=== PATIENT | male | born 1960 | race African-American/Black ===

== ENCOUNTER 2017-05-13 10:29 | Day surgery (SDC) | payer MEDICAID ==
[~2017-05-13 10:29] MED LIST: LISI-644 PO; METF500T PO
== END 2017-05-13 12:17 | disposition home or self-care (01) ==
LOC: WOUND CARE 10:29
PROVIDERS: ATTEND Surgery
DX: T81.89XD Other complications of procedures, not elsewhere classified, subsequent encounter (principal); E11.621 Type 2 diabetes mellitus with foot ulcer; L97.521 Non-pressure chronic ulcer of other part of left foot limited to breakdown of skin; L97.511 Non-pressure chronic ulcer of other part of right foot limited to breakdown of skin; E11.22 Type 2 diabetes mellitus with diabetic chronic kidney disease; I13.0 Hypertensive heart and chronic kidney disease with heart failure and stage 1 through stage 4 chronic kidney disease, or unspecified chronic kidney disease; I50.9 Heart failure, unspecified; N18.3 Chronic kidney disease, stage 3 (moderate); L84 Corns and callosities; E78.5 Hyperlipidemia, unspecified; H54.8 Legal blindness, as defined in USA; E11.69 Type 2 diabetes mellitus with other specified complication; M86.8X7 Other osteomyelitis, ankle and foot; E11.42 Type 2 diabetes mellitus with diabetic polyneuropathy; I87.2 Venous insufficiency (chronic) (peripheral); E11.319 Type 2 diabetes mellitus with unspecified diabetic retinopathy without macular edema; F19.10 Other psychoactive substance abuse, uncomplicated; Z89.012 Acquired absence of left thumb; Z90.49 Acquired absence of other specified parts of digestive tract; Z89.021 Acquired absence of right finger(s); Z68.27 Body mass index [BMI] 27.0-27.9, adult; Z79.899 Other long term (current) drug therapy; Z86.718 Personal history of other venous thrombosis and embolism; Z89.9 Acquired absence of limb, unspecified; Y83.8 Other surgical procedures as the cause of abnormal reaction of the patient, or of later complication, without mention of misadventure at the time of the procedure
CPT/HCPCS: 11042; 36416; 82948; A6021; A6206; A6209; A6446

== ENCOUNTER 2017-05-20 10:00 | Day surgery (SDC) | payer MEDICAID | END 2017-05-20 11:27 | disposition home or self-care (01) | LOC: WOUND CARE 10:00 | PROVIDERS: ATTEND Surgery | DX: T81.89XD Other complications of procedures, not elsewhere classified, subsequent encounter (principal); E11.621 Type 2 diabetes mellitus with foot ulcer; L97.521 Non-pressure chronic ulcer of other part of left foot limited to breakdown of skin; L97.511 Non-pressure chronic ulcer of other part of right foot limited to breakdown of skin; E11.69 Type 2 diabetes mellitus with other specified complication; M86.8X7 Other osteomyelitis, ankle and foot; E11.42 Type 2 diabetes mellitus with diabetic polyneuropathy; E11.319 Type 2 diabetes mellitus with unspecified diabetic retinopathy without macular edema; E11.22 Type 2 diabetes mellitus with diabetic chronic kidney disease; I13.0 Hypertensive heart and chronic kidney disease with heart failure and stage 1 through stage 4 chronic kidney disease, or unspecified chronic kidney disease; I50.9 Heart failure, unspecified; N18.3 Chronic kidney disease, stage 3 (moderate); L84 Corns and callosities; E78.5 Hyperlipidemia, unspecified; H54.8 Legal blindness, as defined in USA; I87.2 Venous insufficiency (chronic) (peripheral); F19.10 Other psychoactive substance abuse, uncomplicated; Z89.012 Acquired absence of left thumb; Z89.9 Acquired absence of limb, unspecified; Z90.49 Acquired absence of other specified parts of digestive tract; Z89.021 Acquired absence of right finger(s); Z68.27 Body mass index [BMI] 27.0-27.9, adult; Z79.899 Other long term (current) drug therapy; Z86.718 Personal history of other venous thrombosis and embolism; Y83.8 Other surgical procedures as the cause of abnormal reaction of the patient, or of later complication, without mention of misadventure at the time of the procedure | CPT/HCPCS: 11042; 36416; 82948; A6206; A6212; A6446 ==

== ENCOUNTER 2017-05-27 09:36 | Day surgery (SDC) | payer MEDICAID | END 2017-05-27 11:03 | disposition home or self-care (01) | LOC: WOUND CARE 09:36 | PROVIDERS: ATTEND Surgery | DX: T81.89XD Other complications of procedures, not elsewhere classified, subsequent encounter (principal); E11.621 Type 2 diabetes mellitus with foot ulcer; L97.521 Non-pressure chronic ulcer of other part of left foot limited to breakdown of skin; L97.511 Non-pressure chronic ulcer of other part of right foot limited to breakdown of skin; E11.22 Type 2 diabetes mellitus with diabetic chronic kidney disease; I13.0 Hypertensive heart and chronic kidney disease with heart failure and stage 1 through stage 4 chronic kidney disease, or unspecified chronic kidney disease; N18.3 Chronic kidney disease, stage 3 (moderate); I50.9 Heart failure, unspecified; E11.69 Type 2 diabetes mellitus with other specified complication; M86.8X7 Other osteomyelitis, ankle and foot; E11.42 Type 2 diabetes mellitus with diabetic polyneuropathy; E11.319 Type 2 diabetes mellitus with unspecified diabetic retinopathy without macular edema; L84 Corns and callosities; E78.5 Hyperlipidemia, unspecified; H54.8 Legal blindness, as defined in USA; F19.10 Other psychoactive substance abuse, uncomplicated; I87.2 Venous insufficiency (chronic) (peripheral); Z89.012 Acquired absence of left thumb; Z89.9 Acquired absence of limb, unspecified; Z90.49 Acquired absence of other specified parts of digestive tract; Z89.021 Acquired absence of right finger(s); Z68.27 Body mass index [BMI] 27.0-27.9, adult; Z79.899 Other long term (current) drug therapy; Z86.718 Personal history of other venous thrombosis and embolism; Y83.8 Other surgical procedures as the cause of abnormal reaction of the patient, or of later complication, without mention of misadventure at the time of the procedure | CPT/HCPCS: 11042; 36416; 82948; A6206; A6209; A6446 ==

== ENCOUNTER 2017-06-03 10:08 | Day surgery (SDC) | payer MEDICAID ==
[2017-06-03] MEDS ORDERED: LIDOcaine 2% 5ml jelly ONE (11:00)
== END 2017-06-03 12:35 | disposition home or self-care (01) ==
LOC: WOUND CARE 10:08
PROVIDERS: ATTEND Surgery
DX: T81.89XD Other complications of procedures, not elsewhere classified, subsequent encounter (principal); E11.621 Type 2 diabetes mellitus with foot ulcer; L97.521 Non-pressure chronic ulcer of other part of left foot limited to breakdown of skin; L97.511 Non-pressure chronic ulcer of other part of right foot limited to breakdown of skin; E11.69 Type 2 diabetes mellitus with other specified complication; M86.8X7 Other osteomyelitis, ankle and foot; E11.42 Type 2 diabetes mellitus with diabetic polyneuropathy; E11.319 Type 2 diabetes mellitus with unspecified diabetic retinopathy without macular edema; E11.22 Type 2 diabetes mellitus with diabetic chronic kidney disease; I13.0 Hypertensive heart and chronic kidney disease with heart failure and stage 1 through stage 4 chronic kidney disease, or unspecified chronic kidney disease; N18.3 Chronic kidney disease, stage 3 (moderate); I50.9 Heart failure, unspecified; E78.5 Hyperlipidemia, unspecified; L84 Corns and callosities; H54.8 Legal blindness, as defined in USA; I87.2 Venous insufficiency (chronic) (peripheral); F19.10 Other psychoactive substance abuse, uncomplicated; Z89.012 Acquired absence of left thumb; Z89.9 Acquired absence of limb, unspecified; Z90.49 Acquired absence of other specified parts of digestive tract; Z89.021 Acquired absence of right finger(s); Z68.27 Body mass index [BMI] 27.0-27.9, adult; Z79.899 Other long term (current) drug therapy; Z86.718 Personal history of other venous thrombosis and embolism; Y83.8 Other surgical procedures as the cause of abnormal reaction of the patient, or of later complication, without mention of misadventure at the time of the procedure
CPT/HCPCS: 36416; 82948; 97597; A6021; A6212; A6222; A6446

== ENCOUNTER 2017-06-10 09:38 | Day surgery (SDC) | payer MEDICAID | END 2017-06-10 12:53 | disposition home or self-care (01) | LOC: WOUND CARE 09:38 | PROVIDERS: ATTEND Surgery | DX: T81.89XD Other complications of procedures, not elsewhere classified, subsequent encounter (principal); E11.621 Type 2 diabetes mellitus with foot ulcer; L97.521 Non-pressure chronic ulcer of other part of left foot limited to breakdown of skin; L97.511 Non-pressure chronic ulcer of other part of right foot limited to breakdown of skin; E11.22 Type 2 diabetes mellitus with diabetic chronic kidney disease; I13.0 Hypertensive heart and chronic kidney disease with heart failure and stage 1 through stage 4 chronic kidney disease, or unspecified chronic kidney disease; I50.9 Heart failure, unspecified; N18.3 Chronic kidney disease, stage 3 (moderate); L84 Corns and callosities; E78.5 Hyperlipidemia, unspecified; H54.8 Legal blindness, as defined in USA; E11.69 Type 2 diabetes mellitus with other specified complication; M86.8X7 Other osteomyelitis, ankle and foot; E11.42 Type 2 diabetes mellitus with diabetic polyneuropathy; E11.319 Type 2 diabetes mellitus with unspecified diabetic retinopathy without macular edema; I87.2 Venous insufficiency (chronic) (peripheral); M86.679 Other chronic osteomyelitis, unspecified ankle and foot; F19.10 Other psychoactive substance abuse, uncomplicated; Z89.012 Acquired absence of left thumb; Z89.9 Acquired absence of limb, unspecified; Z90.49 Acquired absence of other specified parts of digestive tract; Z89.021 Acquired absence of right finger(s); Z68.27 Body mass index [BMI] 27.0-27.9, adult; Z79.899 Other long term (current) drug therapy; Z86.718 Personal history of other venous thrombosis and embolism; Y83.8 Other surgical procedures as the cause of abnormal reaction of the patient, or of later complication, without mention of misadventure at the time of the procedure | CPT/HCPCS: 11042; 36416; 82948; A6021; A6206; A6212; Q4038 ==

== ENCOUNTER 2017-06-14 10:30 | Outpatient (CLI) | payer MEDICAID | END 2017-06-14 11:43 | disposition home or self-care (01) | LOC: EDSTATUS 10:30 → WOUND CARE 10:30 | PROVIDERS: ATTEND Surgery | DX: T81.89XD Other complications of procedures, not elsewhere classified, subsequent encounter (principal); E11.621 Type 2 diabetes mellitus with foot ulcer; L97.521 Non-pressure chronic ulcer of other part of left foot limited to breakdown of skin; L97.511 Non-pressure chronic ulcer of other part of right foot limited to breakdown of skin; E11.22 Type 2 diabetes mellitus with diabetic chronic kidney disease; I13.0 Hypertensive heart and chronic kidney disease with heart failure and stage 1 through stage 4 chronic kidney disease, or unspecified chronic kidney disease; I50.9 Heart failure, unspecified; N18.3 Chronic kidney disease, stage 3 (moderate); L84 Corns and callosities; E78.5 Hyperlipidemia, unspecified; H54.8 Legal blindness, as defined in USA; E11.69 Type 2 diabetes mellitus with other specified complication; M86.8X7 Other osteomyelitis, ankle and foot; E11.42 Type 2 diabetes mellitus with diabetic polyneuropathy; E11.319 Type 2 diabetes mellitus with unspecified diabetic retinopathy without macular edema; I87.2 Venous insufficiency (chronic) (peripheral); M86.679 Other chronic osteomyelitis, unspecified ankle and foot; F19.10 Other psychoactive substance abuse, uncomplicated; Z89.012 Acquired absence of left thumb; Z89.9 Acquired absence of limb, unspecified; Z90.49 Acquired absence of other specified parts of digestive tract; Z89.021 Acquired absence of right finger(s); Z68.27 Body mass index [BMI] 27.0-27.9, adult; Z79.899 Other long term (current) drug therapy; Z86.718 Personal history of other venous thrombosis and embolism; Y83.8 Other surgical procedures as the cause of abnormal reaction of the patient, or of later complication, without mention of misadventure at the time of the procedure | CPT/HCPCS: 29445; 36416; 82948; A4414; A6021; Q4038 ==

== ENCOUNTER 2017-06-21 09:40 | Day surgery (SDC) | payer MEDICAID | END 2017-06-21 12:15 | disposition home or self-care (01) | LOC: WOUND CARE 09:40 | PROVIDERS: ATTEND Surgery | DX: T81.89XD Other complications of procedures, not elsewhere classified, subsequent encounter (principal); E11.621 Type 2 diabetes mellitus with foot ulcer; L97.521 Non-pressure chronic ulcer of other part of left foot limited to breakdown of skin; L97.511 Non-pressure chronic ulcer of other part of right foot limited to breakdown of skin; E11.22 Type 2 diabetes mellitus with diabetic chronic kidney disease; I13.0 Hypertensive heart and chronic kidney disease with heart failure and stage 1 through stage 4 chronic kidney disease, or unspecified chronic kidney disease; I50.9 Heart failure, unspecified; N18.3 Chronic kidney disease, stage 3 (moderate); L84 Corns and callosities; E78.5 Hyperlipidemia, unspecified; H54.8 Legal blindness, as defined in USA; E11.69 Type 2 diabetes mellitus with other specified complication; M86.8X7 Other osteomyelitis, ankle and foot; E11.42 Type 2 diabetes mellitus with diabetic polyneuropathy; E11.319 Type 2 diabetes mellitus with unspecified diabetic retinopathy without macular edema; I87.2 Venous insufficiency (chronic) (peripheral); M86.679 Other chronic osteomyelitis, unspecified ankle and foot; F19.10 Other psychoactive substance abuse, uncomplicated; Z89.012 Acquired absence of left thumb; Z89.9 Acquired absence of limb, unspecified; Z90.49 Acquired absence of other specified parts of digestive tract; Z89.021 Acquired absence of right finger(s); Z68.27 Body mass index [BMI] 27.0-27.9, adult; Z79.899 Other long term (current) drug therapy; Z86.718 Personal history of other venous thrombosis and embolism; Y83.8 Other surgical procedures as the cause of abnormal reaction of the patient, or of later complication, without mention of misadventure at the time of the procedure | CPT/HCPCS: 11042; 36416; 82948; 97597; A6021; A6206; A6446; Q4038 ==

== ENCOUNTER 2017-06-28 10:00 | Day surgery (SDC) | payer MEDICAID | END 2017-06-28 12:28 | disposition home or self-care (01) | LOC: WOUND CARE 10:00 | PROVIDERS: ATTEND Surgery | DX: T81.89XD Other complications of procedures, not elsewhere classified, subsequent encounter (principal); E11.621 Type 2 diabetes mellitus with foot ulcer; L97.521 Non-pressure chronic ulcer of other part of left foot limited to breakdown of skin; L97.511 Non-pressure chronic ulcer of other part of right foot limited to breakdown of skin; E11.22 Type 2 diabetes mellitus with diabetic chronic kidney disease; I13.0 Hypertensive heart and chronic kidney disease with heart failure and stage 1 through stage 4 chronic kidney disease, or unspecified chronic kidney disease; I50.9 Heart failure, unspecified; N18.3 Chronic kidney disease, stage 3 (moderate); L84 Corns and callosities; E78.5 Hyperlipidemia, unspecified; H54.8 Legal blindness, as defined in USA; E11.69 Type 2 diabetes mellitus with other specified complication; M86.8X7 Other osteomyelitis, ankle and foot; E11.42 Type 2 diabetes mellitus with diabetic polyneuropathy; E11.319 Type 2 diabetes mellitus with unspecified diabetic retinopathy without macular edema; I87.2 Venous insufficiency (chronic) (peripheral); M86.679 Other chronic osteomyelitis, unspecified ankle and foot; F19.10 Other psychoactive substance abuse, uncomplicated; Z89.012 Acquired absence of left thumb; Z89.9 Acquired absence of limb, unspecified; Z90.49 Acquired absence of other specified parts of digestive tract; Z89.021 Acquired absence of right finger(s); Z68.27 Body mass index [BMI] 27.0-27.9, adult; Z79.899 Other long term (current) drug therapy; Z86.718 Personal history of other venous thrombosis and embolism; Y83.8 Other surgical procedures as the cause of abnormal reaction of the patient, or of later complication, without mention of misadventure at the time of the procedure | CPT/HCPCS: 11042; 87070; 87075; 87077; 87102; 87186; A6021; A6196; Q4038 ==

== ENCOUNTER 2017-07-09 10:27 | Day surgery (SDC) | payer MEDICAID ==
[2017-07-09] MEDS ORDERED: LIDOcaine 2% 5ml jelly ONE ×2 (11:15)
== END 2017-07-09 14:00 | disposition home or self-care (01) ==
LOC: WOUND CARE 10:27
PROVIDERS: ATTEND Surgery
DX: T81.89XD Other complications of procedures, not elsewhere classified, subsequent encounter (principal); E11.621 Type 2 diabetes mellitus with foot ulcer; L97.521 Non-pressure chronic ulcer of other part of left foot limited to breakdown of skin; L97.511 Non-pressure chronic ulcer of other part of right foot limited to breakdown of skin; E11.22 Type 2 diabetes mellitus with diabetic chronic kidney disease; I13.0 Hypertensive heart and chronic kidney disease with heart failure and stage 1 through stage 4 chronic kidney disease, or unspecified chronic kidney disease; I50.9 Heart failure, unspecified; N18.3 Chronic kidney disease, stage 3 (moderate); L84 Corns and callosities; E78.5 Hyperlipidemia, unspecified; H54.8 Legal blindness, as defined in USA; E11.69 Type 2 diabetes mellitus with other specified complication; M86.8X7 Other osteomyelitis, ankle and foot; E11.42 Type 2 diabetes mellitus with diabetic polyneuropathy; E11.319 Type 2 diabetes mellitus with unspecified diabetic retinopathy without macular edema; I87.2 Venous insufficiency (chronic) (peripheral); M86.679 Other chronic osteomyelitis, unspecified ankle and foot; F19.10 Other psychoactive substance abuse, uncomplicated; Z89.012 Acquired absence of left thumb; Z89.9 Acquired absence of limb, unspecified; Z90.49 Acquired absence of other specified parts of digestive tract; Z89.021 Acquired absence of right finger(s); Z68.27 Body mass index [BMI] 27.0-27.9, adult; Z79.899 Other long term (current) drug therapy; Z86.718 Personal history of other venous thrombosis and embolism; Y83.8 Other surgical procedures as the cause of abnormal reaction of the patient, or of later complication, without mention of misadventure at the time of the procedure
CPT/HCPCS: 11042; 11045; 36416; 82948; 97605; A6206; A6446

== ENCOUNTER 2017-07-12 09:01 | Outpatient (CLI) | payer MEDICAID ==
[2017-07-12] MEDS ORDERED: CIPR-230 PO (09:49)
== END 2017-07-12 11:06 | disposition home or self-care (01) ==
LOC: WOUND CARE 09:01
PROVIDERS: ATTEND Surgery
DX: E11.621 Type 2 diabetes mellitus with foot ulcer (principal); L97.521 Non-pressure chronic ulcer of other part of left foot limited to breakdown of skin; L97.511 Non-pressure chronic ulcer of other part of right foot limited to breakdown of skin; E11.22 Type 2 diabetes mellitus with diabetic chronic kidney disease; I13.0 Hypertensive heart and chronic kidney disease with heart failure and stage 1 through stage 4 chronic kidney disease, or unspecified chronic kidney disease; I50.9 Heart failure, unspecified; N18.3 Chronic kidney disease, stage 3 (moderate); L84 Corns and callosities; E78.5 Hyperlipidemia, unspecified; H54.8 Legal blindness, as defined in USA; E11.69 Type 2 diabetes mellitus with other specified complication; M86.8X7 Other osteomyelitis, ankle and foot; E11.42 Type 2 diabetes mellitus with diabetic polyneuropathy; E11.319 Type 2 diabetes mellitus with unspecified diabetic retinopathy without macular edema; I87.2 Venous insufficiency (chronic) (peripheral); M86.679 Other chronic osteomyelitis, unspecified ankle and foot; F19.10 Other psychoactive substance abuse, uncomplicated; Z89.012 Acquired absence of left thumb; Z89.9 Acquired absence of limb, unspecified; Z90.49 Acquired absence of other specified parts of digestive tract; Z89.021 Acquired absence of right finger(s); Z68.27 Body mass index [BMI] 27.0-27.9, adult; Z79.899 Other long term (current) drug therapy; Z86.718 Personal history of other venous thrombosis and embolism; Y83.8 Other surgical procedures as the cause of abnormal reaction of the patient, or of later complication, without mention of misadventure at the time of the procedure
CPT/HCPCS: 36416; 82948; 97605; A6207; A6222; A6266

== ENCOUNTER 2017-08-15 19:00 | Inpatient (IN) | payer MEDICAID ==
[~2017-08-15] VITALS: Ht 190.5 cm; Wt 77.8 kg
[~2017-08-15 19:00] MED LIST changes: +CIPR-230 PO
[2017-08-15] MEDS ORDERED: piperacillin/tazo 3.375gm/50ml 50 ML IV ONE (20:50)
[2017-08-15] MEDS ORDERED: vancomycin/NS 1 GM ADD-VANTAGE 250 ML IV ONE (20:50)
[2017-08-15 21:27] LABS: BASOPHILS # (AUTO) 0.1 X10'3 (0-0.2); BASOPHILS % (AUTO) 0.5 % (0-1); EOSINOPHILS # (AUTO) 0.2 X10'3 (0-0.9); EOSINOPHILS % (AUTO) 1.8 % (0-6); HEMATOCRIT 24.4 % (42.0-52.0); HEMOGLOBIN 8.2 g/dl (14.0-17.9); LYMPHOCYTES # (AUTO) 1.9 X10'3 (1.1-4.8); LYMPHOCYTES % (AUTO) 16.5 % (21-51); MEAN CORPUSCULAR HEMOGLOBIN 29.1 PG (27.0-31.0); MEAN CORPUSCULAR HGB CONC 33.7 % (33.0-36.5); MEAN CORPUSCULAR VOLUME 86.2 FL (78-98); MEAN PLATELET VOLUME 7.2 FL (7.4-10.4); MONOCYTES # (AUTO) 0.8 X10'3 (0-0.9); MONOCYTES % (AUTO) 6.9 % (2-12); NEUTROPHILS # (AUTO) 8.7 X10'3 (1.8-7.7); NEUTROPHILS % (AUTO) 74.3 % (42-75); PLATELET COUNT 528 X10'3 (140-440); RED BLOOD COUNT 2.83 X10'6 (4.70-6.10); RED CELL DISTRIBUTION WIDTH 14.6 % (11.5-14.5); WHITE BLOOD COUNT 11.8 X10'3 (4.5-11.0)
[2017-08-15 21:38] LABS: INR 1.1 INR; PARTIAL THROMBOPLASTIN TIME 34 SECONDS (22-32)
[2017-08-15 21:41] LABS: ALANINE AMINOTRANSFERASE 98 U/L (12-78); ALBUMIN 2.1 G/DL (3.4-5.0); ALBUMIN/GLOBULIN RATIO 0.3 (1.1-1.5); ALKALINE PHOSPHATASE 147 IU/L (46-116); ANION GAP 13 (8-16); ASPARTATE AMINO TRANSFERASE 110 U/L (10-37); BILIRUBIN,TOTAL 0.5 MG/DL (0.1-1.0); BLOOD UREA NITROGEN 22 MG/DL (7-18); CALCIUM 8.8 MG/DL (8.5-10.1); CHLORIDE 97 MMOL/L (99-107); CREATININE 2.45 MG/DL (0.60-1.10); GLUCOSE 158 MG/DL (70-104); POTASSIUM 4.4 MMOL/L (3.5-5.1); SODIUM 130 MMOL/L (135-145); TOTAL CARBON DIOXIDE 20.4 MMOL/L (24-32); TOTAL PROTEIN 9.8 G/DL (6.4-8.2); eGFR 33 ML/MIN
[2017-08-15] MEDS ORDERED: enoxaparin 80mg/0.8ml syringe SUBCUT ONE (22:20)
[2017-08-15] MEDS ORDERED: enoxaparin 100mg/ml syringe SUBCUT ONE (22:20)
[2017-08-15] MEDS ORDERED: heparin 10,000 units/1 ML INJ IV ONE (22:40)
[2017-08-15] MEDS ORDERED: MESSAGE TO PHARMACY PO ONE (23:25)
[2017-08-15] MEDS ORDERED: acetaminophen 325mg tablet PO PRN (23:25)
[2017-08-15] MEDS ORDERED: dextrose 50%-water 50ml dispensing syringe IV PRN ×2 (23:25)
[2017-08-15] MEDS ORDERED: ondansetron/PF 4mg/2ml inj IV PRN (23:25)
[2017-08-15] MEDS ORDERED: dextrose ORAL solution 15 GM/59 ML bottle PO PRN ×2 (23:25)
[2017-08-15] MEDS ORDERED: glucagon, human recombinant 1mg kit SUBCUT PRN (23:25)
[2017-08-15 23:54] LABS: HEMOGLOBIN A1C 9.4 % (4.5-6.2)
[2017-08-16 00:34] LABS: COLOR,URINE Yellow (Yellow); GLUCOSE, URINE 250 mg/dl (Neg); KETONES,URINE Negative (Neg); LEUKOCYTE ESTERASE ,URINE Negative (Neg); NITRITES, URINE Negative (Neg); OCCULT BLOOD,URINE Small (Neg); PH,URINE 6.5 (4.8-8.0); PROTEIN,URINE 300 mg/dl (Neg)
[2017-08-16 00:54] LABS: CLARITY,URINE Slightly Cloudy (Clear); UA COLLECTION TYPE CLN CATCH MIDSTREAM
[2017-08-16 00:55] LABS: BACTERIA,URINE NONE SEEN /HPF (Neg); HYALINE CASTS 0-3 /LPF (NEGATIVE); MUCUS STRANDS FEW /LPF (Neg); SQUAMOUS EPITHELIAL CELL,UR FEW /LPF (FEW); WBC,URINE 0-4 /HPF (0-4)
[2017-08-16] MEDS: normal saline 1000ml 1,000 ML IV SCH ×2 (01:01→22:53)
[2017-08-16] MEDS: heparin 10,000 units/1 ML INJ IV PRN ×3 (07:03→21:56)
[2017-08-16 08:06] LABS: BASOPHILS # (AUTO) 0.1 X10'3 (0-0.2); BASOPHILS % (AUTO) 0.6 % (0-1); EOSINOPHILS # (AUTO) 0.1 X10'3 (0-0.9); EOSINOPHILS % (AUTO) 1.1 % (0-6); HEMOGLOBIN 7.4 g/dl (14.0-17.9); LYMPHOCYTES # (AUTO) 1.3 X10'3 (1.1-4.8); LYMPHOCYTES % (AUTO) 13.4 % (21-51); MEAN CORPUSCULAR HEMOGLOBIN 29.2 PG (27.0-31.0); MEAN CORPUSCULAR HGB CONC 34.2 % (33.0-36.5); MEAN CORPUSCULAR VOLUME 85.4 FL (78-98); MEAN PLATELET VOLUME 6.7 FL (7.4-10.4); MONOCYTES % (AUTO) 10.5 % (2-12); NEUTROPHILS # (AUTO) 7.2 X10'3 (1.8-7.7); NEUTROPHILS % (AUTO) 74.4 % (42-75); PLATELET COUNT 466 X10'3 (140-440); RED BLOOD COUNT 2.54 X10'6 (4.70-6.10); RED CELL DISTRIBUTION WIDTH 14.7 % (11.5-14.5); WHITE BLOOD COUNT 9.7 X10'3 (4.5-11.0)
[2017-08-16 08:25] LABS: HEMATOCRIT 21.7 % (42.0-52.0)
[2017-08-16 08:26] LABS: ALBUMIN 1.7 G/DL (3.4-5.0); ANION GAP 11 (8-16); BLOOD UREA NITROGEN 22 MG/DL (7-18); BUN/CREATININE RATIO 10.2 (5.4-32.0); CALCIUM 8.5 MG/DL (8.5-10.1); CHLORIDE 102 MMOL/L (99-107); CHOL/HDL RATIO 6.1 (0.00-4.99); CHOLESTEROL 140 MG/DL (0-200); CREATININE 2.15 MG/DL (0.60-1.10); GLUCOSE 172 MG/DL (70-104); HDL CHOLESTEROL 23 MG/DL (35-60); LDL CHOLESTEROL 86 MG/DL (50-100); POTASSIUM 4.8 MMOL/L (3.5-5.1); SODIUM 134 MMOL/L (135-145); TOTAL CARBON DIOXIDE 21.3 MMOL/L (24-32); TRIGLYCERIDES 131 MG/DL (20-135); eGFR 39 ML/MIN
[2017-08-16] MEDS ORDERED: acetaminophen 325mg tablet PO ONE (10:40)
[2017-08-16] MEDS: piperacillin-tazo 2.25gm/50ml 50 ML IV SCH ×3 (11:30→23:29)
[2017-08-16] MEDS: lisinopril 20mg tablet PO SCH (12:38)
[2017-08-16] MEDS: insulin Lispro (HumaLOG) vial - multi-dose SQ SCH ×2 (13:30→20:06)
[2017-08-16 19:00] VITALS: BP 156/84
[2017-08-16] MEDS: lactobacillus rhamnosus 10,000 MMU CELLS/CAPSULE PO SCH (20:04)
[2017-08-16] MEDS: vancomycin/NS 1 GM ADD-VANTAGE 250 ML X 1 DOSE IV SCH (20:39)
[2017-08-16] MEDS: insulin glargine (Lantus) pen - multi-dose SQ SCH (21:33)
[2017-08-17] VITALS (7 sets, daily range): BP systolic 144–178; BP diastolic 82–91
[2017-08-17] MEDS: normal saline 1000ml 1,000 ML IV SCH ×2 (03:59→18:17)
[2017-08-17 05:13] LABS: BASOPHILS % (AUTO) 0.3 % (0-1); EOSINOPHILS # (AUTO) 0.2 X10'3 (0-0.9); EOSINOPHILS % (AUTO) 2.5 % (0-6); HEMATOCRIT 23.8 % (42.0-52.0); HEMOGLOBIN 7.9 g/dl (14.0-17.9); LYMPHOCYTES # (AUTO) 1.5 X10'3 (1.1-4.8); LYMPHOCYTES % (AUTO) 15.7 % (21-51); MEAN CORPUSCULAR HEMOGLOBIN 29.1 PG (27.0-31.0); MEAN CORPUSCULAR HGB CONC 33.5 % (33.0-36.5); MEAN CORPUSCULAR VOLUME 86.9 FL (78-98); MEAN PLATELET VOLUME 7.1 FL (7.4-10.4); MONOCYTES # (AUTO) 0.7 X10'3 (0-0.9); MONOCYTES % (AUTO) 7.3 % (2-12); NEUTROPHILS # (AUTO) 7.2 X10'3 (1.8-7.7); NEUTROPHILS % (AUTO) 74.2 % (42-75); PLATELET COUNT 484 X10'3 (140-440); RED BLOOD COUNT 2.73 X10'6 (4.70-6.10); RED CELL DISTRIBUTION WIDTH 14.9 % (11.5-14.5); WHITE BLOOD COUNT 9.7 X10'3 (4.5-11.0)
[2017-08-17 05:38] LABS: ALBUMIN 1.7 G/DL (3.4-5.0); ANION GAP 12 (8-16); BLOOD UREA NITROGEN 24 MG/DL (7-18); BUN/CREATININE RATIO 11.8 (5.4-32.0); CALCIUM 8.6 MG/DL (8.5-10.1); CHLORIDE 103 MMOL/L (99-107); CREATININE 2.04 MG/DL (0.60-1.10); GLUCOSE 131 MG/DL (70-104); POTASSIUM 4.4 MMOL/L (3.5-5.1); SODIUM 136 MMOL/L (135-145); TOTAL CARBON DIOXIDE 20.8 MMOL/L (24-32); eGFR 41 ML/MIN
[2017-08-17] MEDS: heparin 10,000 units/1 ML INJ IV PRN ×3 (05:51→21:30)
[2017-08-17] MEDS: piperacillin-tazo 2.25gm/50ml 50 ML IV SCH (08:55)
[2017-08-17] MEDS: loratadine 10mg tablet PO SCH (08:56)
[2017-08-17] MEDS: lisinopril 20mg tablet PO SCH (08:56)
[2017-08-17] MEDS: lactobacillus rhamnosus 10,000 MMU CELLS/CAPSULE PO SCH ×2 (08:56→20:52)
[2017-08-17] MEDS: insulin Lispro (HumaLOG) vial - multi-dose SQ SCH ×2 (13:55→18:49)
[2017-08-17] MEDS: amLODIPine 5mg tablet PO SCH (20:52)
[2017-08-17] MEDS: vancomycin/NS 1 GM ADD-VANTAGE 250 ML X 1 DOSE IV SCH (20:52)
[2017-08-17] MEDS: insulin glargine (Lantus) pen - multi-dose SQ SCH (21:00)
[2017-08-18] VITALS: BP 155/92
[2017-08-18] MEDS: HYDROcodone/acetaminophen 5mg/325mg tablet PO PRN ×2 (00:06→19:47)
[2017-08-18 05:34] LABS: BASOPHILS % (AUTO) 0.3 % (0-1); EOSINOPHILS # (AUTO) 0.3 X10'3 (0-0.9); EOSINOPHILS % (AUTO) 3.5 % (0-6); HEMOGLOBIN 7.3 g/dl (14.0-17.9); LYMPHOCYTES # (AUTO) 1.4 X10'3 (1.1-4.8); LYMPHOCYTES % (AUTO) 19.4 % (21-51); MEAN CORPUSCULAR HEMOGLOBIN 29.1 PG (27.0-31.0); MEAN CORPUSCULAR HGB CONC 33.8 % (33.0-36.5); MEAN CORPUSCULAR VOLUME 86.3 FL (78-98); MEAN PLATELET VOLUME 7.1 FL (7.4-10.4); MONOCYTES # (AUTO) 0.6 X10'3 (0-0.9); MONOCYTES % (AUTO) 8.2 % (2-12); NEUTROPHILS % (AUTO) 68.6 % (42-75); PLATELET COUNT 465 X10'3 (140-440); RED BLOOD COUNT 2.49 X10'6 (4.70-6.10); RED CELL DISTRIBUTION WIDTH 14.4 % (11.5-14.5); WHITE BLOOD COUNT 7.4 X10'3 (4.5-11.0)
[2017-08-18 05:38] LABS: ALBUMIN 1.6 G/DL (3.4-5.0); ANION GAP 10 (8-16); BLOOD UREA NITROGEN 20 MG/DL (7-18); BUN/CREATININE RATIO 10.4 (5.4-32.0); CALCIUM 8.5 MG/DL (8.5-10.1); CHLORIDE 105 MMOL/L (99-107); CREATININE 1.92 MG/DL (0.60-1.10); GLUCOSE 175 MG/DL (70-104); POTASSIUM 4.2 MMOL/L (3.5-5.1); SODIUM 138 MMOL/L (135-145); TOTAL CARBON DIOXIDE 23.5 MMOL/L (24-32); eGFR 44 ML/MIN
[2017-08-18 05:41] LABS: HEMATOCRIT 21.5 % (42.0-52.0)
[2017-08-18 07:00] VITALS: BP 176/91
[2017-08-18] MEDS: amLODIPine 5mg tablet PO SCH (08:23)
[2017-08-18] MEDS: loratadine 10mg tablet PO SCH (08:23)
[2017-08-18] MEDS: lisinopril 20mg tablet PO SCH (08:23)
[2017-08-18] MEDS: lactobacillus rhamnosus 10,000 MMU CELLS/CAPSULE PO SCH ×2 (08:23→19:48)
[2017-08-18] MEDS: vancomycin/NS 1 GM ADD-VANTAGE 250 ML X 1 DOSE IV SCH ×2 (08:24→20:57)
[2017-08-18] MEDS: normal saline 1000ml 1,000 ML IV SCH ×2 (08:25→22:53)
[2017-08-18 11:00] VITALS: BP 177/89
[2017-08-18] MEDS ORDERED: pantoprazole 40 MG vial IV SCH (15:15)
[2017-08-18 19:00] VITALS: BP 173/88
[2017-08-18] MEDS ORDERED: VANCOMYCIN LEVEL IV ONE (20:30)
[2017-08-18 20:33] LABS: HEMATOCRIT 25.5 % (42.0-52.0); HEMOGLOBIN 8.7 g/dl (14.0-17.9); MEAN CORPUSCULAR HEMOGLOBIN 29.4 PG (27.0-31.0); MEAN CORPUSCULAR VOLUME 86.3 FL (78-98); MEAN PLATELET VOLUME 6.9 FL (7.4-10.4); PLATELET COUNT 541 X10'3 (140-440); RED BLOOD COUNT 2.96 X10'6 (4.70-6.10); RED CELL DISTRIBUTION WIDTH 14.9 % (11.5-14.5); WHITE BLOOD COUNT 8.9 X10'3 (4.5-11.0)
[2017-08-18] MEDS: insulin glargine (Lantus) pen - multi-dose SQ SCH (21:00)
[2017-08-18] MEDS: heparin 10,000 units/1 ML INJ IV PRN (21:52)
[2017-08-19] VITALS: BP 171/89
[2017-08-19] MEDS: normal saline 1000ml 1,000 ML IV SCH ×2 (04:42→22:10)
[2017-08-19 05:05] LABS: BASOPHILS # (AUTO) 0.1 X10'3 (0-0.2); BASOPHILS % (AUTO) 0.6 % (0-1); EOSINOPHILS # (AUTO) 0.2 X10'3 (0-0.9); HEMATOCRIT 23.8 % (42.0-52.0); HEMOGLOBIN 8.1 g/dl (14.0-17.9); LYMPHOCYTES # (AUTO) 1.7 X10'3 (1.1-4.8); LYMPHOCYTES % (AUTO) 20.3 % (21-51); MEAN CORPUSCULAR HEMOGLOBIN 29.1 PG (27.0-31.0); MEAN CORPUSCULAR HGB CONC 33.9 % (33.0-36.5); MEAN CORPUSCULAR VOLUME 85.9 FL (78-98); MONOCYTES # (AUTO) 0.5 X10'3 (0-0.9); MONOCYTES % (AUTO) 6.6 % (2-12); NEUTROPHILS # (AUTO) 5.9 X10'3 (1.8-7.7); NEUTROPHILS % (AUTO) 70.5 % (42-75); PLATELET COUNT 541 X10'3 (140-440); RED BLOOD COUNT 2.77 X10'6 (4.70-6.10); RED CELL DISTRIBUTION WIDTH 14.6 % (11.5-14.5); WHITE BLOOD COUNT 8.4 X10'3 (4.5-11.0)
[2017-08-19 05:23] LABS: ALBUMIN 1.7 G/DL (3.4-5.0); ANION GAP 10 (8-16); BLOOD UREA NITROGEN 19 MG/DL (7-18); BUN/CREATININE RATIO 10.8 (5.4-32.0); CALCIUM 8.5 MG/DL (8.5-10.1); CHLORIDE 105 MMOL/L (99-107); CREATININE 1.76 MG/DL (0.60-1.10); GLUCOSE 149 MG/DL (70-104); SODIUM 138 MMOL/L (135-145); eGFR 49 ML/MIN
[2017-08-19 07:00] VITALS: BP 108/66
[2017-08-19] MEDS ORDERED: VANCOMYCIN LEVEL IV ONE (08:30)
[2017-08-19] MEDS: vancomycin/NS 1 GM ADD-VANTAGE 250 ML X 1 DOSE IV SCH ×2 (08:34→08:48)
[2017-08-19] MEDS: lisinopril 20mg tablet PO SCH (08:34)
[2017-08-19] MEDS: pantoprazole 40 MG vial IV SCH (08:34)
[2017-08-19] MEDS: loratadine 10mg tablet PO SCH (08:34)
[2017-08-19] MEDS: lactobacillus rhamnosus 10,000 MMU CELLS/CAPSULE PO SCH ×2 (08:34→19:40)
[2017-08-19] MEDS: amLODIPine 5mg tablet PO SCH (08:34)
[2017-08-19 08:54] LABS: HEMATOCRIT 25.5 % (42.0-52.0); HEMOGLOBIN 8.8 g/dl (14.0-17.9); MEAN CORPUSCULAR HEMOGLOBIN 29.5 PG (27.0-31.0); MEAN CORPUSCULAR HGB CONC 34.6 % (33.0-36.5); MEAN CORPUSCULAR VOLUME 85.1 FL (78-98); MEAN PLATELET VOLUME 6.8 FL (7.4-10.4); PLATELET COUNT 541 X10'3 (140-440); RED BLOOD COUNT 2.99 X10'6 (4.70-6.10); RED CELL DISTRIBUTION WIDTH 14.6 % (11.5-14.5); WHITE BLOOD COUNT 7.9 X10'3 (4.5-11.0)
[2017-08-19 11:00] VITALS: BP 176/97
[2017-08-19 12:09] LABS: HEMATOCRIT 26.2 % (42.0-52.0); HEMOGLOBIN 9.1 g/dl (14.0-17.9); MEAN CORPUSCULAR HEMOGLOBIN 29.6 PG (27.0-31.0); MEAN CORPUSCULAR HGB CONC 34.7 % (33.0-36.5); MEAN CORPUSCULAR VOLUME 85.2 FL (78-98); MEAN PLATELET VOLUME 6.7 FL (7.4-10.4); PLATELET COUNT 521 X10'3 (140-440); RED BLOOD COUNT 3.08 X10'6 (4.70-6.10); RED CELL DISTRIBUTION WIDTH 14.6 % (11.5-14.5); WHITE BLOOD COUNT 7.3 X10'3 (4.5-11.0)
[2017-08-19] MEDS: levoFLOXACIN 750MG TABLET PO SCH (12:10)
[2017-08-19] MEDS ORDERED: LORazepam 0.5 MG tablet PO PRN (17:50)
[2017-08-19] MEDS ORDERED: temazepam 15mg capsule PO PRN (17:50)
[2017-08-19 18:00] LABS: HEMOGLOBIN 8.6 g/dl (14.0-17.9); MEAN CORPUSCULAR HEMOGLOBIN 29.3 PG (27.0-31.0); MEAN CORPUSCULAR HGB CONC 34.2 % (33.0-36.5); MEAN CORPUSCULAR VOLUME 85.8 FL (78-98); MEAN PLATELET VOLUME 7.3 FL (7.4-10.4); PLATELET COUNT 519 X10'3 (140-440); RED BLOOD COUNT 2.92 X10'6 (4.70-6.10); RED CELL DISTRIBUTION WIDTH 14.7 % (11.5-14.5)
[2017-08-19] MEDS: insulin Lispro (HumaLOG) vial - multi-dose SQ SCH (19:14)
[2017-08-19 19:33] LABS: HEMATOCRIT 26.3 % (42.0-52.0); MEAN CORPUSCULAR HEMOGLOBIN 29.1 PG (27.0-31.0); MEAN CORPUSCULAR HGB CONC 34.1 % (33.0-36.5); MEAN CORPUSCULAR VOLUME 85.4 FL (78-98); MEAN PLATELET VOLUME 6.7 FL (7.4-10.4); PLATELET COUNT 538 X10'3 (140-440); RED BLOOD COUNT 3.08 X10'6 (4.70-6.10); RED CELL DISTRIBUTION WIDTH 14.5 % (11.5-14.5); WHITE BLOOD COUNT 7.4 X10'3 (4.5-11.0)
[2017-08-19] MEDS: metroNIDAZOLE 500mg tablet PO SCH (19:40)
[2017-08-19 20:00] VITALS: BP 167/93
[2017-08-19] MEDS: insulin glargine (Lantus) pen - multi-dose SQ SCH (21:00)
[2017-08-19] MEDS ORDERED: VANCOMYCIN 750MG IV in NS 250 ML IV SCH (21:00)
[2017-08-20] VITALS: BP 159/82
[2017-08-20 05:52] LABS: BASOPHILS # (AUTO) 0.1 X10'3 (0-0.2); BASOPHILS % (AUTO) 0.9 % (0-1); EOSINOPHILS # (AUTO) 0.1 X10'3 (0-0.9); EOSINOPHILS % (AUTO) 1.9 % (0-6); HEMATOCRIT 22.8 % (42.0-52.0); HEMOGLOBIN 7.7 g/dl (14.0-17.9); LYMPHOCYTES # (AUTO) 1.7 X10'3 (1.1-4.8); LYMPHOCYTES % (AUTO) 27.4 % (21-51); MEAN CORPUSCULAR HEMOGLOBIN 28.9 PG (27.0-31.0); MEAN CORPUSCULAR HGB CONC 33.7 % (33.0-36.5); MEAN CORPUSCULAR VOLUME 85.7 FL (78-98); MEAN PLATELET VOLUME 7.4 FL (7.4-10.4); MONOCYTES # (AUTO) 0.4 X10'3 (0-0.9); MONOCYTES % (AUTO) 6.6 % (2-12); NEUTROPHILS # (AUTO) 3.9 X10'3 (1.8-7.7); NEUTROPHILS % (AUTO) 63.2 % (42-75); PLATELET COUNT 474 X10'3 (140-440); RED BLOOD COUNT 2.66 X10'6 (4.70-6.10); RED CELL DISTRIBUTION WIDTH 13.9 % (11.5-14.5); WHITE BLOOD COUNT 6.2 X10'3 (4.5-11.0)
[2017-08-20 06:04] LABS: ALBUMIN 1.6 G/DL (3.4-5.0); ANION GAP 12 (8-16); BLOOD UREA NITROGEN 19 MG/DL (7-18); BUN/CREATININE RATIO 12.7 (5.4-32.0); CALCIUM 7.7 MG/DL (8.5-10.1); CHLORIDE 108 MMOL/L (99-107); GLUCOSE 136 MG/DL (70-104); POTASSIUM 3.5 MMOL/L (3.5-5.1); SODIUM 140 MMOL/L (135-145); TOTAL CARBON DIOXIDE 20.3 MMOL/L (24-32); eGFR 59 ML/MIN
[2017-08-20 07:00] VITALS: BP 101/49
[2017-08-20] MEDS: metroNIDAZOLE 500mg tablet PO SCH ×2 (08:33→19:53)
[2017-08-20] MEDS: lisinopril 20mg tablet PO SCH (08:33)
[2017-08-20] MEDS: lactobacillus rhamnosus 10,000 MMU CELLS/CAPSULE PO SCH ×2 (08:33→19:53)
[2017-08-20] MEDS: amLODIPine 5mg tablet PO SCH (08:33)
[2017-08-20] MEDS: loratadine 10mg tablet PO SCH (08:34)
[2017-08-20] MEDS: pantoprazole 40 MG vial IV SCH (08:34)
[2017-08-20] MEDS: insulin Lispro (HumaLOG) vial - multi-dose SQ SCH ×3 (08:58→19:51)
[2017-08-20 11:00] VITALS: BP 143/89
[2017-08-20 13:37] LABS: HEMATOCRIT 24.4 % (42.0-52.0); HEMOGLOBIN 8.4 g/dl (14.0-17.9); MEAN CORPUSCULAR HGB CONC 34.3 % (33.0-36.5); MEAN CORPUSCULAR VOLUME 84.5 FL (78-98); MEAN PLATELET VOLUME 6.4 FL (7.4-10.4); PLATELET COUNT 562 X10'3 (140-440); RED BLOOD COUNT 2.89 X10'6 (4.70-6.10); RED CELL DISTRIBUTION WIDTH 14.4 % (11.5-14.5); WHITE BLOOD COUNT 7.3 X10'3 (4.5-11.0)
[2017-08-20] MEDS: normal saline 1000ml 1,000 ML IV SCH (19:34)
[2017-08-20 20:00] VITALS: BP 126/86
[2017-08-20] MEDS: heparin 10,000 units/1 ML INJ IV PRN (22:24)
[2017-08-20] MEDS: insulin glargine (Lantus) pen - multi-dose SQ SCH (22:32)
[2017-08-21] VITALS: BP 125/74
[2017-08-21 07:16] LABS: VANCOMYCIN,TROUGH 8.5 UG/ML (6.0-14.0)
[2017-08-21 07:30] VITALS: BP 152/89
[2017-08-21] MEDS: normal saline 1000ml 1,000 ML IV SCH ×2 (08:05→14:00)
[2017-08-21] MEDS ORDERED: VANCOMYCIN LEVEL IV NR (08:30)
[2017-08-21 09:02] LABS: ALBUMIN 1.9 G/DL (3.4-5.0); ANION GAP 12 (8-16); BLOOD UREA NITROGEN 23 MG/DL (7-18); BUN/CREATININE RATIO 12.2 (5.4-32.0); CALCIUM 8.8 MG/DL (8.5-10.1); CHLORIDE 105 MMOL/L (99-107); CREATININE 1.88 MG/DL (0.60-1.10); GLUCOSE 142 MG/DL (70-104); POTASSIUM 3.9 MMOL/L (3.5-5.1); SODIUM 138 MMOL/L (135-145); TOTAL CARBON DIOXIDE 21.3 MMOL/L (24-32); eGFR 45 ML/MIN
[2017-08-21] MEDS: amLODIPine 5mg tablet PO SCH (09:50)
[2017-08-21] MEDS: pantoprazole 40mg Tablet.DR PO SCH (09:50)
[2017-08-21] MEDS: loratadine 10mg tablet PO SCH (09:50)
[2017-08-21] MEDS: lactobacillus rhamnosus 10,000 MMU CELLS/CAPSULE PO SCH ×2 (09:50→21:39)
[2017-08-21] MEDS: metroNIDAZOLE 500mg tablet PO SCH ×2 (09:50→21:39)
[2017-08-21] MEDS: lisinopril 20mg tablet PO SCH (09:51)
[2017-08-21] MEDS: levoFLOXACIN 750MG TABLET PO SCH (09:51)
[2017-08-21] MEDS: insulin Lispro (HumaLOG) vial - multi-dose SQ SCH ×3 (09:55→19:44)
[2017-08-21 11:00] VITALS: BP 153/85
[2017-08-21 20:00] VITALS: BP 156/78
[2017-08-21] MEDS: insulin glargine (Lantus) pen - multi-dose SQ SCH (21:00)
[2017-08-22] VITALS: BP 176/87
[2017-08-22] MEDS: normal saline 1000ml 1,000 ML IV SCH (03:34)
[2017-08-22 06:30] VITALS: BP 165/72
[2017-08-22 07:39] VITALS: BP 165/72
[2017-08-22] MEDS: insulin Lispro (HumaLOG) vial - multi-dose SQ SCH ×3 (08:15→19:36)
[2017-08-22] MEDS: lactobacillus rhamnosus 10,000 MMU CELLS/CAPSULE PO SCH ×2 (08:16→21:21)
[2017-08-22] MEDS: amLODIPine 5mg tablet PO SCH (08:16)
[2017-08-22] MEDS: loratadine 10mg tablet PO SCH (08:16)
[2017-08-22] MEDS: lisinopril 20mg tablet PO SCH (08:17)
[2017-08-22] MEDS: metroNIDAZOLE 500mg tablet PO SCH ×2 (08:17→21:22)
[2017-08-22] MEDS: pantoprazole 40mg Tablet.DR PO SCH (08:17)
[2017-08-22 11:00] VITALS: BP 158/94
[2017-08-22 12:47] VITALS: BP 148/82
[2017-08-22 20:00] VITALS: BP 180/88
[2017-08-22] MEDS: insulin glargine (Lantus) pen - multi-dose SQ SCH (21:00)
[2017-08-22] MEDS: metoprolol tartrate 50mg tablet PO SCH (21:22)
[2017-08-23] VITALS: BP 165/82
[2017-08-23 01:37] LABS: INR 1.1 INR; PROTHROMBIN TIME 11.3 SECONDS (9.0-12.0)
[2017-08-23 07:00] VITALS: BP 155/78
[2017-08-23 08:47] LABS: BASOPHILS % (AUTO) 0.6 % (0-1); EOSINOPHILS # (AUTO) 0.1 X10'3 (0-0.9); EOSINOPHILS % (AUTO) 1.8 % (0-6); HEMOGLOBIN 8.8 g/dl (14.0-17.9); LYMPHOCYTES # (AUTO) 1.6 X10'3 (1.1-4.8); LYMPHOCYTES % (AUTO) 26.7 % (21-51); MEAN CORPUSCULAR HGB CONC 33.7 % (33.0-36.5); MEAN CORPUSCULAR VOLUME 86.1 FL (78-98); MEAN PLATELET VOLUME 6.7 FL (7.4-10.4); MONOCYTES # (AUTO) 0.5 X10'3 (0-0.9); MONOCYTES % (AUTO) 7.6 % (2-12); NEUTROPHILS # (AUTO) 3.8 X10'3 (1.8-7.7); NEUTROPHILS % (AUTO) 63.3 % (42-75); PLATELET COUNT 471 X10'3 (140-440); RED BLOOD COUNT 3.02 X10'6 (4.70-6.10); RED CELL DISTRIBUTION WIDTH 14.7 % (11.5-14.5)
[2017-08-23] MEDS: insulin Lispro (HumaLOG) vial - multi-dose SQ SCH ×2 (08:58→14:17)
[2017-08-23] MEDS: amLODIPine 5mg tablet PO SCH (09:00)
[2017-08-23] MEDS: levoFLOXACIN 750MG TABLET PO SCH (09:00)
[2017-08-23] MEDS: metroNIDAZOLE 500mg tablet PO SCH ×2 (09:00→19:14)
[2017-08-23] MEDS: loratadine 10mg tablet PO SCH (09:00)
[2017-08-23] MEDS: metoprolol tartrate 50mg tablet PO SCH ×2 (09:01→19:15)
[2017-08-23] MEDS: lactobacillus rhamnosus 10,000 MMU CELLS/CAPSULE PO SCH ×2 (09:01→19:15)
[2017-08-23] MEDS: pantoprazole 40mg Tablet.DR PO SCH (09:01)
[2017-08-23] MEDS: lisinopril 20mg tablet PO SCH (09:02)
[2017-08-23 09:03] LABS: ANION GAP 10 (8-16); BLOOD UREA NITROGEN 28 MG/DL (7-18); BUN/CREATININE RATIO 15.4 (5.4-32.0); CALCIUM 8.8 MG/DL (8.5-10.1); CHLORIDE 106 MMOL/L (99-107); CREATININE 1.82 MG/DL (0.60-1.10); GLUCOSE 172 MG/DL (70-104); POTASSIUM 4.2 MMOL/L (3.5-5.1); SODIUM 137 MMOL/L (135-145); TOTAL CARBON DIOXIDE 21.5 MMOL/L (24-32); eGFR 47 ML/MIN
[2017-08-23 11:00] VITALS: BP 169/79
[2017-08-23 18:00] VITALS: BP 160/81
[2017-08-23] MEDS: heparin 10,000 units/1 ML INJ IV PRN (19:09)
[2017-08-23] MEDS: insulin glargine (Lantus) pen - multi-dose SQ SCH (21:00)
[2017-08-23] MEDS ORDERED: cloNIDine 0.1 mg tablet PO ONE (23:35)
[2017-08-24] VITALS: BP 178/88
[2017-08-24 00:33] VITALS: BP 132/69
[2017-08-24 08:23] VITALS: BP 145/73
[2017-08-24] MEDS: pantoprazole 40mg Tablet.DR PO SCH (08:27)
[2017-08-24] MEDS: lactobacillus rhamnosus 10,000 MMU CELLS/CAPSULE PO SCH ×2 (08:27→20:23)
[2017-08-24] MEDS: lisinopril 20mg tablet PO SCH (08:28)
[2017-08-24] MEDS: loratadine 10mg tablet PO SCH (08:28)
[2017-08-24] MEDS: metoprolol tartrate 50mg tablet PO SCH ×2 (08:28→20:23)
[2017-08-24] MEDS: metroNIDAZOLE 500mg tablet PO SCH ×2 (08:28→20:21)
[2017-08-24] MEDS: cloNIDine 0.1 mg tablet PO SCH ×2 (08:28→20:23)
[2017-08-24] MEDS: amLODIPine 5mg tablet PO SCH (08:28)
[2017-08-24 13:06] VITALS: BP 136/73
[2017-08-24] MEDS: insulin Lispro (HumaLOG) vial - multi-dose SQ SCH ×2 (13:36→18:51)
[2017-08-24 18:00] VITALS: BP 160/80
[2017-08-24] MEDS: apixaban 5mg tablet PO SCH (20:21)
[2017-08-24] MEDS: insulin glargine (Lantus) pen - multi-dose SQ SCH (21:42)
[2017-08-25] VITALS: BP 136/72
[2017-08-25 05:39] LABS: BASOPHILS % (AUTO) 0.5 % (0-1); EOSINOPHILS # (AUTO) 0.1 X10'3 (0-0.9); HEMATOCRIT 23.8 % (42.0-52.0); HEMOGLOBIN 7.9 g/dl (14.0-17.9); LYMPHOCYTES # (AUTO) 1.6 X10'3 (1.1-4.8); LYMPHOCYTES % (AUTO) 29.7 % (21-51); MEAN CORPUSCULAR HEMOGLOBIN 28.7 PG (27.0-31.0); MEAN CORPUSCULAR HGB CONC 33.2 % (33.0-36.5); MEAN CORPUSCULAR VOLUME 86.6 FL (78-98); MEAN PLATELET VOLUME 6.8 FL (7.4-10.4); MONOCYTES # (AUTO) 0.6 X10'3 (0-0.9); MONOCYTES % (AUTO) 10.8 % (2-12); PLATELET COUNT 435 X10'3 (140-440); RED BLOOD COUNT 2.75 X10'6 (4.70-6.10); RED CELL DISTRIBUTION WIDTH 14.6 % (11.5-14.5); WHITE BLOOD COUNT 5.2 X10'3 (4.5-11.0)
[2017-08-25 06:03] LABS: ALBUMIN 2.1 G/DL (3.4-5.0); ANION GAP 10 (8-16); BLOOD UREA NITROGEN 34 MG/DL (7-18); BUN/CREATININE RATIO 17.6 (5.4-32.0); CALCIUM 8.9 MG/DL (8.5-10.1); CHLORIDE 104 MMOL/L (99-107); CREATININE 1.93 MG/DL (0.60-1.10); GLUCOSE 131 MG/DL (70-104); POTASSIUM 4.1 MMOL/L (3.5-5.1); SODIUM 135 MMOL/L (135-145); TOTAL CARBON DIOXIDE 20.6 MMOL/L (24-32); eGFR 44 ML/MIN
[2017-08-25] MEDS: loratadine 10mg tablet PO SCH (07:37)
[2017-08-25] MEDS: apixaban 5mg tablet PO SCH ×2 (07:37→19:49)
[2017-08-25] MEDS: metroNIDAZOLE 500mg tablet PO SCH ×2 (07:37→19:49)
[2017-08-25] MEDS: lisinopril 20mg tablet PO SCH (07:37)
[2017-08-25] MEDS: lactobacillus rhamnosus 10,000 MMU CELLS/CAPSULE PO SCH ×2 (07:37→19:49)
[2017-08-25] MEDS: amLODIPine 5mg tablet PO SCH (07:37)
[2017-08-25] MEDS: pantoprazole 40mg Tablet.DR PO SCH (07:38)
[2017-08-25] MEDS: levoFLOXACIN 750MG TABLET PO SCH (07:38)
[2017-08-25] MEDS: cloNIDine 0.1 mg tablet PO SCH ×2 (07:38→19:49)
[2017-08-25] MEDS: metoprolol tartrate 50mg tablet PO SCH ×2 (07:38→19:49)
[2017-08-25 07:47] VITALS: BP 144/72
[2017-08-25] MEDS: insulin Lispro (HumaLOG) vial - multi-dose SQ SCH ×3 (09:39→18:53)
[2017-08-25 12:00] VITALS: BP 131/70
[2017-08-25 19:30] VITALS: BP 173/63
[2017-08-25] MEDS: insulin glargine (Lantus) pen - multi-dose SQ SCH (21:22)
[2017-08-26] VITALS: BP 129/67
[2017-08-26 05:16] LABS: BASOPHILS % (AUTO) 0.5 % (0-1); EOSINOPHILS # (AUTO) 0.1 X10'3 (0-0.9); EOSINOPHILS % (AUTO) 1.6 % (0-6); HEMATOCRIT 23.4 % (42.0-52.0); HEMOGLOBIN 7.8 g/dl (14.0-17.9); LYMPHOCYTES # (AUTO) 1.5 X10'3 (1.1-4.8); LYMPHOCYTES % (AUTO) 29.3 % (21-51); MEAN CORPUSCULAR HEMOGLOBIN 28.8 PG (27.0-31.0); MEAN CORPUSCULAR HGB CONC 33.5 % (33.0-36.5); MEAN CORPUSCULAR VOLUME 85.9 FL (78-98); MEAN PLATELET VOLUME 6.9 FL (7.4-10.4); MONOCYTES # (AUTO) 0.5 X10'3 (0-0.9); MONOCYTES % (AUTO) 9.4 % (2-12); NEUTROPHILS % (AUTO) 59.2 % (42-75); PLATELET COUNT 436 X10'3 (140-440); RED BLOOD COUNT 2.73 X10'6 (4.70-6.10); RED CELL DISTRIBUTION WIDTH 15.3 % (11.5-14.5); WHITE BLOOD COUNT 5.1 X10'3 (4.5-11.0)
[2017-08-26 05:54] LABS: ALBUMIN 2.1 G/DL (3.4-5.0); ANION GAP 10 (8-16); BLOOD UREA NITROGEN 35 MG/DL (7-18); BUN/CREATININE RATIO 17.5 (5.4-32.0); CALCIUM 8.7 MG/DL (8.5-10.1); CHLORIDE 105 MMOL/L (99-107); GLUCOSE 127 MG/DL (70-104); POTASSIUM 4.1 MMOL/L (3.5-5.1); SODIUM 136 MMOL/L (135-145); TOTAL CARBON DIOXIDE 21.1 MMOL/L (24-32); eGFR 42 ML/MIN
[2017-08-26 07:42] VITALS: BP 129/68
[2017-08-26] MEDS: insulin Lispro (HumaLOG) vial - multi-dose SQ SCH ×2 (07:52→13:48)
[2017-08-26] MEDS: lisinopril 20mg tablet PO SCH (07:52)
[2017-08-26] MEDS: loratadine 10mg tablet PO SCH (07:53)
[2017-08-26] MEDS: apixaban 5mg tablet PO SCH (07:53)
[2017-08-26] MEDS: metroNIDAZOLE 500mg tablet PO SCH (07:53)
[2017-08-26] MEDS: lactobacillus rhamnosus 10,000 MMU CELLS/CAPSULE PO SCH (07:53)
[2017-08-26] MEDS: metoprolol tartrate 50mg tablet PO SCH (07:53)
[2017-08-26] MEDS: cloNIDine 0.1 mg tablet PO SCH (07:53)
[2017-08-26] MEDS: amLODIPine 5mg tablet PO SCH (07:53)
[2017-08-26] MEDS: pantoprazole 40mg Tablet.DR PO SCH (07:53)
[2017-08-26 11:40] VITALS: BP 110/48
[2017-08-26] MEDS ORDERED: APIX5TAB3 PO (14:01)
[2017-08-26] MEDS ORDERED: AMLO5TAB16 PO (14:03)
== END 2017-08-26 16:45 | disposition home or self-care (01) | DRG 197 ==
LOC: ER 19:01 → ED HOLD 23:23 → SUR 3N 08-16 08:50
PROVIDERS: ADMIT Family Medicine; ATTEND Family Medicine
PROC: 30233N1 Transfusion of Nonautologous Red Blood Cells into Peripheral Vein, Percutaneous Approach (ICD-10-PCS; principal; 2017-08-17)
DX: I82.B11 Acute embolism and thrombosis of right subclavian vein (principal); E43 Unspecified severe protein-calorie malnutrition; E11.22 Type 2 diabetes mellitus with diabetic chronic kidney disease; E11.42 Type 2 diabetes mellitus with diabetic polyneuropathy; E87.1 Hypo-osmolality and hyponatremia; M86.671 Other chronic osteomyelitis, right ankle and foot; I82.621 Acute embolism and thrombosis of deep veins of right upper extremity; N18.3 Chronic kidney disease, stage 3 (moderate); D64.9 Anemia, unspecified; S91.301A Unspecified open wound, right foot, initial encounter; E11.621 Type 2 diabetes mellitus with foot ulcer; L97.529 Non-pressure chronic ulcer of other part of left foot with unspecified severity; L97.519 Non-pressure chronic ulcer of other part of right foot with unspecified severity; E11.65 Type 2 diabetes mellitus with hyperglycemia; F12.90 Cannabis use, unspecified, uncomplicated; F17.290 Nicotine dependence, other tobacco product, uncomplicated; I12.9 Hypertensive chronic kidney disease with stage 1 through stage 4 chronic kidney disease, or unspecified chronic kidney disease; L03.113 Cellulitis of right upper limb; S91.302A Unspecified open wound, left foot, initial encounter; Z89.429 Acquired absence of other toe(s), unspecified side; Z90.49 Acquired absence of other specified parts of digestive tract; Z68.21 Body mass index [BMI] 21.0-21.9, adult; Z59.0 Homelessness; Z90.5 Acquired absence of kidney; Z79.899 Other long term (current) drug therapy
CPT/HCPCS: 36415; 71045; 73630; 73718; 80048; 80053; 80061; 80202; 81001; 82948; 83036; 83605; 83735; 84145; 85025; 85027; 85610; 85730; 86885; 86900; 86901; 86920; 87040; 87070; 93005; 93306; 93970; 93971; 96365; 96366; 96368; 97110; 97116; 97162; 97530; 99285; A4649; A6196; A6212; A6213; A6255; A6446; A6449; C9113; J1644; J1815; J2543; J3370; J3490; J7030; P9016

== ENCOUNTER 2017-08-30 09:45 | Day surgery (SDC) | payer MEDICAID ==
[~2017-08-30 09:45] MED LIST changes: +AMLO5TAB16 PO; +APIX5TAB3 PO; -CIPR-230 PO; -LISI-644 PO; -METF500T PO
== END 2017-08-30 12:03 | disposition home or self-care (01) ==
LOC: WOUND CARE 09:45
PROVIDERS: ATTEND Surgery
DX: T81.89XD Other complications of procedures, not elsewhere classified, subsequent encounter (principal); E11.621 Type 2 diabetes mellitus with foot ulcer; L97.522 Non-pressure chronic ulcer of other part of left foot with fat layer exposed; L97.514 Non-pressure chronic ulcer of other part of right foot with necrosis of bone; E11.22 Type 2 diabetes mellitus with diabetic chronic kidney disease; I13.0 Hypertensive heart and chronic kidney disease with heart failure and stage 1 through stage 4 chronic kidney disease, or unspecified chronic kidney disease; I50.9 Heart failure, unspecified; N18.3 Chronic kidney disease, stage 3 (moderate); L84 Corns and callosities; E78.5 Hyperlipidemia, unspecified; H54.8 Legal blindness, as defined in USA; E11.69 Type 2 diabetes mellitus with other specified complication; M86.8X7 Other osteomyelitis, ankle and foot; E11.42 Type 2 diabetes mellitus with diabetic polyneuropathy; E11.65 Type 2 diabetes mellitus with hyperglycemia; E11.319 Type 2 diabetes mellitus with unspecified diabetic retinopathy without macular edema; I87.2 Venous insufficiency (chronic) (peripheral); M86.679 Other chronic osteomyelitis, unspecified ankle and foot; F19.10 Other psychoactive substance abuse, uncomplicated; Z89.012 Acquired absence of left thumb; Z89.9 Acquired absence of limb, unspecified; Z90.49 Acquired absence of other specified parts of digestive tract; Z89.021 Acquired absence of right finger(s); Z68.27 Body mass index [BMI] 27.0-27.9, adult; Z79.899 Other long term (current) drug therapy; Z86.718 Personal history of other venous thrombosis and embolism; Y83.8 Other surgical procedures as the cause of abnormal reaction of the patient, or of later complication, without mention of misadventure at the time of the procedure
CPT/HCPCS: 11042; 11044; 36416; 82948; 87070; 87075; 87077; 87102; 87186; A6021; A6206; A6209; A6266; A6446

== ENCOUNTER 2017-09-02 09:33 | Day surgery (SDC) | payer MEDICAID ==
[2017-09-02] MEDS ORDERED: RIFA300C4 (15:07)
== END 2017-09-02 11:24 | disposition home or self-care (01) ==
LOC: WOUND CARE 09:33
PROVIDERS: ATTEND Surgery
DX: T81.89XD Other complications of procedures, not elsewhere classified, subsequent encounter (principal); E11.621 Type 2 diabetes mellitus with foot ulcer; L97.522 Non-pressure chronic ulcer of other part of left foot with fat layer exposed; L97.514 Non-pressure chronic ulcer of other part of right foot with necrosis of bone; E11.22 Type 2 diabetes mellitus with diabetic chronic kidney disease; I13.0 Hypertensive heart and chronic kidney disease with heart failure and stage 1 through stage 4 chronic kidney disease, or unspecified chronic kidney disease; I50.9 Heart failure, unspecified; N18.3 Chronic kidney disease, stage 3 (moderate); L84 Corns and callosities; E78.5 Hyperlipidemia, unspecified; H54.8 Legal blindness, as defined in USA; E11.69 Type 2 diabetes mellitus with other specified complication; M86.8X7 Other osteomyelitis, ankle and foot; E11.42 Type 2 diabetes mellitus with diabetic polyneuropathy; E11.65 Type 2 diabetes mellitus with hyperglycemia; E11.319 Type 2 diabetes mellitus with unspecified diabetic retinopathy without macular edema; I87.2 Venous insufficiency (chronic) (peripheral); M86.679 Other chronic osteomyelitis, unspecified ankle and foot; F19.10 Other psychoactive substance abuse, uncomplicated; Z89.012 Acquired absence of left thumb; Z89.9 Acquired absence of limb, unspecified; Z90.49 Acquired absence of other specified parts of digestive tract; Z89.021 Acquired absence of right finger(s); Z68.27 Body mass index [BMI] 27.0-27.9, adult; Z79.899 Other long term (current) drug therapy; Z86.718 Personal history of other venous thrombosis and embolism; Y83.8 Other surgical procedures as the cause of abnormal reaction of the patient, or of later complication, without mention of misadventure at the time of the procedure
CPT/HCPCS: 36416; 82948; 97597; A6021; A6206; A6209; A6266; A6446

== ENCOUNTER 2018-06-15 02:16 | Inpatient (IN) | payer MEDICAID ==
[~2018-06-15] VITALS: Ht 190.5 cm; Wt 88.9 kg
[~2018-06-15 02:16] MED LIST changes: -APIX5TAB3 PO; +RIFA300C4
[2018-06-15] MEDS ORDERED: normal saline 1000ML IV soln IVB ONE (02:55)
[2018-06-15] MEDS ORDERED: fentaNYL/PF 50MCG/1 ML 2ML syringe IV ONE (02:55)
[2018-06-15] MEDS ORDERED: ondansetron/PF 4mg/2ml inj IV ONE (02:55)
[2018-06-15] MEDS ORDERED: hydrALAZINE 20mg/ml inj. IV ONE ×2 (03:05→05:20)
[2018-06-15] MEDS ORDERED: LORazepam 2 mg/ml vial IV ONE (03:10)
[2018-06-15 03:36] LABS: CLARITY,URINE CLEAR (Clear); COLOR,URINE YELLOW (Yellow); GLUCOSE, URINE 250 mg/dl (Neg); KETONES,URINE NEGATIVE (Neg); LEUKOCYTE ESTERASE ,URINE NEGATIVE (Neg); NITRITES, URINE NEGATIVE (Neg); OCCULT BLOOD,URINE MODERATE (Neg); PH,URINE 6.5 (4.8-8.0); PROTEIN,URINE >=300 mg/dl (Neg); UROBILINOGEN,URINE 0.2 E.U/dL (0.2-1.0)
[2018-06-15 03:37] LABS: BASOPHILS % (AUTO) 0.4 % (0-1); EOSINOPHILS % (AUTO) 0.8 % (0-6); HEMATOCRIT 34.2 % (42.0-52.0); LYMPHOCYTES # (AUTO) 1.1 X10'3 (1.1-4.8); LYMPHOCYTES % (AUTO) 22.9 % (21-51); MEAN CORPUSCULAR HEMOGLOBIN 29.6 PG (27.0-31.0); MEAN CORPUSCULAR HGB CONC 32.1 g/dL (33.0-36.5); MEAN CORPUSCULAR VOLUME 92.2 FL (78-98); MEAN PLATELET VOLUME 7.4 FL (7.4-10.4); MONOCYTES # (AUTO) 0.4 X10'3 (0-0.9); MONOCYTES % (AUTO) 7.6 % (2-12); NEUTROPHILS # (AUTO) 3.3 X10'3 (1.8-7.7); NEUTROPHILS % (AUTO) 68.3 % (42-75); PLATELET COUNT 284 X10'3 (140-440); RED BLOOD COUNT 3.71 X10'6 (4.70-6.10); RED CELL DISTRIBUTION WIDTH 17.1 % (11.5-14.5); WHITE BLOOD COUNT 4.9 X10'3 (4.5-11.0)
[2018-06-15 03:45] LABS: UA COLLECTION TYPE CLN CATCH MIDSTREAM
[2018-06-15 03:46] LABS: BACTERIA,URINE NONE SEEN /HPF (Neg); SQUAMOUS EPITHELIAL CELL,UR FEW /LPF (FEW); WBC,URINE 0-4 /HPF (0-4)
[2018-06-15 03:48] LABS: ALANINE AMINOTRANSFERASE 25 U/L (12-78); ALBUMIN 2.1 G/DL (3.4-5.0); ALBUMIN/GLOBULIN RATIO 0.4 (1.1-1.5); ALKALINE PHOSPHATASE 164 IU/L (46-116); ANION GAP 10 (8-16); ASPARTATE AMINO TRANSFERASE 21 U/L (10-37); BILIRUBIN,TOTAL 0.4 MG/DL (0.1-1.0); BLOOD UREA NITROGEN 37 MG/DL (7-18); BUN/CREATININE RATIO 13.3 (5.4-32.0); CALCIUM 8.2 MG/DL (8.5-10.1); CHLORIDE 109 MMOL/L (99-107); CREATININE 2.79 MG/DL (0.60-1.10); GLUCOSE 148 MG/DL (70-104); POTASSIUM 4.7 MMOL/L (3.5-5.1); SODIUM 139 MMOL/L (135-145); TOTAL CARBON DIOXIDE 19.6 MMOL/L (24-32); TOTAL PROTEIN 7.1 G/DL (6.4-8.2); eGFR 29 ML/MIN
[2018-06-15 03:50] LABS: URINE AMPHETAMINE SCREEN NEGATIVE (Neg); URINE BARBITUATE SCREEN NEGATIVE (Neg); URINE BENZODIAZEPINES SCREEN NEGATIVE (Neg); URINE CANNABINOID SCREEN NEGATIVE (Neg); URINE COCAINE SCREEN NEGATIVE (Neg); URINE METHADONE SCREEN NEGATIVE (Neg); URINE OPIATE SCREEN NEGATIVE (Neg); URINE PHENCYCLIDINE SCREEN NEGATIVE (Neg)
[2018-06-15] MEDS ORDERED: furosemide 10 MG/1 ML 10ml inj IV ONE (04:00)
--- NOTE | 2018-06-15 04:11 | NUR ---
us called and they are en route
--- NOTE | 2018-06-15 04:43 | NUR ---
US tech at bedside
[2018-06-15] MEDS ORDERED: NO HOME MEDS (05:32)
[2018-06-15] MEDS ORDERED: ondansetron/PF 4mg/2ml inj IV PRN (06:05)
[2018-06-15] MEDS ORDERED: mag hydrox/Alum hydrox/simeth 30ml oral suspension PO PRN (06:05)
[2018-06-15] MEDS ORDERED: MESSAGE TO PHARMACY PO ONE (06:05)
[2018-06-15] MEDS ORDERED: dextrose ORAL solution 15 GM/59 ML bottle PO PRN ×2 (06:05)
[2018-06-15] MEDS ORDERED: insulin Lispro (HumaLOG) vial - multi-dose SQ SCH (06:05)
[2018-06-15] MEDS ORDERED: HYDROcodone/acetaminophen 10/325mg tab PO PRN (06:05)
[2018-06-15] MEDS ORDERED: glucagon, human recombinant 1mg kit SUBCUT PRN (06:05)
[2018-06-15] MEDS ORDERED: magnesium hydroxide 30ml (MOM) UD suspension PO PRN (06:05)
[2018-06-15] MEDS ORDERED: dextrose 50%-water 50ml dispensing syringe IV PRN ×2 (06:05)
[2018-06-15] MEDS ORDERED: acetaminophen 325mg tablet PO PRN ×2 (06:05)
[2018-06-15] MEDS ORDERED: HYDROcodone/acetaminophen 5mg/325mg tablet PO PRN (06:05)
[2018-06-15 07:39] LABS: HEMOGLOBIN A1C 7.5 % (4.5-6.2)
[2018-06-15] MEDS ORDERED: furosemide 10 MG/1 ML 10ml inj IV SCH (08:00)
[2018-06-15] MEDS: heparin, porcine 5000 units/ml vial SQ SCH ×2 (10:37→21:12)
--- NOTE | 2018-06-15 10:45 | NUR ---
Patient in room TAMAR 349. I have received report from Seamus GOMEZ and had the opportunity to ask questions and assume patient care.
--- NOTE | 2018-06-15 10:55 | NUR ---
Patient on the unit by FAIZAN Way RN transported
[2018-06-15 12:10] VITALS: BP 189/105
--- NOTE | 2018-06-15 12:40 | NUR ---
Hilario YANEZ concerning patients BP of 189/105.
[2018-06-15] MEDS ORDERED: losartan 50mg tablet PO ONE (14:05)
[2018-06-15 14:49] LABS: CHOL/HDL RATIO 3.3 (0.00-4.99); CHOLESTEROL 152 MG/DL (0-200); HDL CHOLESTEROL 46 MG/DL (35-60); LDL CHOLESTEROL 94 MG/DL (50-100); TRIGLYCERIDES 102 MG/DL (20-135)
[2018-06-15] MEDS: emollient combination-Eucerin 250 ML LOTION TP SCH (16:20)
[2018-06-15 16:32] VITALS: BP 186/108
[2018-06-15] MEDS ORDERED: AMLO5TAB16 PO (17:50)
--- NOTE | 2018-06-15 18:10 | NUR ---
Problems reprioritized. Patient report given, questions answered & plan of care reviewed with Fitz GOMEZ . Student Medication Administration: For this medication-pass time frame, all medication were reviewed, dispensed, administered and documented per hospital policy by . Student documentation: I have reviewed and agree with all interventions, assessments performed and documented by Laura VILLELA.
[2018-06-15 18:50] VITALS: BP 154/83
[2018-06-15] MEDS: insulin glargine (Lantus) pen - multi-dose SQ SCH (21:00)
[2018-06-16] VITALS: BP 168/102
[2018-06-16] MEDS: furosemide 40mg/4ml inj IV SCH ×3 (00:20→17:05)
--- NOTE | 2018-06-16 06:37 | NUR ---
Problems reprioritized. Patient report given, questions answered & plan of care reviewed with NAHED. Addendum: 06/16/18 at 0642 by Terrence Mota RN Amended: Links added.
--- NOTE | 2018-06-16 06:48 | NUR ---
Patient in room TAMAR 349. I have received report from Fitz GOMEZ and had the opportunity to ask questions and assume patient care.
[2018-06-16 07:12] VITALS: BP 160/92
[2018-06-16] MEDS ORDERED: mineral oil/petrolatum, white cream 113gm jar TP SCH (08:00)
[2018-06-16] MEDS: heparin, porcine 5000 units/ml vial SQ SCH ×2 (08:13→19:56)
[2018-06-16] MEDS: losartan 50mg tablet PO SCH (08:21)
[2018-06-16] MEDS: amLODIPine 5mg tablet PO SCH (08:22)
[2018-06-16] MEDS: carvedilol 6.25mg tablet PO SCH ×2 (08:22→19:55)
[2018-06-16 08:36] LABS: BASOPHILS % (AUTO) 0.4 % (0-1); EOSINOPHILS # (AUTO) 0.1 X10'3 (0-0.9); EOSINOPHILS % (AUTO) 1.7 % (0-6); HEMATOCRIT 35.6 % (42.0-52.0); HEMOGLOBIN 11.7 g/dl (14.0-17.9); LYMPHOCYTES # (AUTO) 0.6 X10'3 (1.1-4.8); LYMPHOCYTES % (AUTO) 19.8 % (21-51); MEAN CORPUSCULAR HEMOGLOBIN 30.2 PG (27.0-31.0); MEAN CORPUSCULAR VOLUME 91.6 FL (78-98); MEAN PLATELET VOLUME 7.4 FL (7.4-10.4); MONOCYTES # (AUTO) 0.4 X10'3 (0-0.9); MONOCYTES % (AUTO) 12.3 % (2-12); NEUTROPHILS # (AUTO) 2.1 X10'3 (1.8-7.7); NEUTROPHILS % (AUTO) 65.8 % (42-75); PLATELET COUNT 263 X10'3 (140-440); RED BLOOD COUNT 3.89 X10'6 (4.70-6.10); RED CELL DISTRIBUTION WIDTH 17.2 % (11.5-14.5); WHITE BLOOD COUNT 3.2 X10'3 (4.5-11.0)
[2018-06-16] MEDS: emollient combination-Eucerin 250 ML LOTION TP SCH (08:39)
[2018-06-16 09:16] LABS: ALANINE AMINOTRANSFERASE 24 U/L (12-78); ALBUMIN 2.1 G/DL (3.4-5.0); ALBUMIN/GLOBULIN RATIO 0.4 (1.1-1.5); ALKALINE PHOSPHATASE 145 IU/L (46-116); ANION GAP 10 (8-16); ASPARTATE AMINO TRANSFERASE 19 U/L (10-37); BILIRUBIN,TOTAL 0.7 MG/DL (0.1-1.0); BLOOD UREA NITROGEN 32 MG/DL (7-18); BUN/CREATININE RATIO 11.9 (5.4-32.0); CALCIUM 8.6 MG/DL (8.5-10.1); CHLORIDE 106 MMOL/L (99-107); CHOL/HDL RATIO 3.4 (0.00-4.99); CHOLESTEROL 162 MG/DL (0-200); GLUCOSE 108 MG/DL (70-104); HDL CHOLESTEROL 48 MG/DL (35-60); LDL CHOLESTEROL 105 MG/DL (50-100); POTASSIUM 4.3 MMOL/L (3.5-5.1); SODIUM 141 MMOL/L (135-145); TOTAL PROTEIN 7.2 G/DL (6.4-8.2); TRIGLYCERIDES 73 MG/DL (20-135); eGFR 30 ML/MIN
[2018-06-16] MEDS ORDERED: FLU VACC QUAD 2018(5 YR UP)/PF 60 MCG/0.5 ML SYRINGE IM ONE (10:00)
[2018-06-16] MEDS ORDERED: pneumococcal 23-VAL P-sac vacc 25 mcg/0.5ml vial IMVAC ONE (10:00)
[2018-06-16 11:11] VITALS: BP 133/84
[2018-06-16 11:16] VITALS: BP 133/84
[2018-06-16 11:45] VITALS: BP 133/84
--- NOTE | 2018-06-16 14:07 | NUR ---
DM consult, patient has A1C of 7.5, seen at bedside and given written DM education handout with verbal review. Addendum: 06/16/18 at [address] Amended: Links added.
--- NOTE | 2018-06-16 18:42 | NUR ---
Problems reprioritized. Patient report given, questions answered & plan of care reviewed with Alberto RN. Student Medication Administration: For this medication-pass time frame, all medication were reviewed, dispensed, administered and documented per hospital policy by Laura VARGAS
--- NOTE | 2018-06-16 18:45 | NUR ---
Patient in room TAMAR 349. I have received report from NAHED GOMEZ and had the opportunity to ask questions and assume patient care.
[2018-06-16 20:00] VITALS: BP 151/85
[2018-06-16] MEDS: insulin glargine (Lantus) pen - multi-dose SQ SCH (21:00)
[2018-06-17] VITALS: BP 132/84
[2018-06-17] MEDS: furosemide 40mg/4ml inj IV SCH ×3 (00:15→15:55)
[2018-06-17 05:02] LABS: BASOPHILS % (AUTO) 0.7 % (0-1); EOSINOPHILS # (AUTO) 0.1 X10'3 (0-0.9); EOSINOPHILS % (AUTO) 2.1 % (0-6); HEMATOCRIT 33.8 % (42.0-52.0); HEMOGLOBIN 11.1 g/dl (14.0-17.9); LYMPHOCYTES # (AUTO) 1.1 X10'3 (1.1-4.8); MEAN PLATELET VOLUME 7.6 FL (7.4-10.4); MONOCYTES # (AUTO) 0.5 X10'3 (0-0.9); MONOCYTES % (AUTO) 12.7 % (2-12); NEUTROPHILS # (AUTO) 1.9 X10'3 (1.8-7.7); NEUTROPHILS % (AUTO) 53.5 % (42-75); PLATELET COUNT 259 X10'3 (140-440); RED BLOOD COUNT 3.71 X10'6 (4.70-6.10); RED CELL DISTRIBUTION WIDTH 16.8 % (11.5-14.5); WHITE BLOOD COUNT 3.6 X10'3 (4.5-11.0)
[2018-06-17 05:14] LABS: ALANINE AMINOTRANSFERASE 20 U/L (12-78); ALBUMIN 1.9 G/DL (3.4-5.0); ALBUMIN/GLOBULIN RATIO 0.4 (1.1-1.5); ALKALINE PHOSPHATASE 121 IU/L (46-116); ANION GAP 9 (8-16); ASPARTATE AMINO TRANSFERASE 17 U/L (10-37); BILIRUBIN,TOTAL 0.4 MG/DL (0.1-1.0); BLOOD UREA NITROGEN 36 MG/DL (7-18); BUN/CREATININE RATIO 11.7 (5.4-32.0); CALCIUM 8.2 MG/DL (8.5-10.1); CHLORIDE 105 MMOL/L (99-107); CREATININE 3.08 MG/DL (0.60-1.10); GLUCOSE 120 MG/DL (70-104); POTASSIUM 3.5 MMOL/L (3.5-5.1); SODIUM 141 MMOL/L (135-145); TOTAL CARBON DIOXIDE 26.7 MMOL/L (24-32); TOTAL PROTEIN 6.4 G/DL (6.4-8.2); eGFR 25 ML/MIN
--- NOTE | 2018-06-17 06:30 | NUR ---
Patient in room TAMAR 349. I have received report from Esthela Proctor RN and had the opportunity to ask questions and assume patient care. Patient in bed sleeping, bed lo, locked, call light in reach
--- NOTE | 2018-06-17 06:30 | NUR ---
Problems reprioritized. Patient report given, questions answered & plan of care reviewed with WILD GOMEZ.
[2018-06-17 07:30] VITALS: BP 156/94
[2018-06-17] MEDS: carVEDilol 12.5mg tablet PO SCH ×2 (08:38→20:01)
[2018-06-17] MEDS: losartan 50mg tablet PO SCH (08:38)
[2018-06-17] MEDS: atorvastatin 20mg tablet PO SCH (08:39)
[2018-06-17] MEDS: amLODIPine 5mg tablet PO SCH (08:39)
[2018-06-17] MEDS: heparin, porcine 5000 units/ml vial SQ SCH ×2 (08:41→20:03)
[2018-06-17] MEDS: emollient combination-Eucerin 250 ML LOTION TP SCH (08:41)
[2018-06-17 11:15] LABS: A/G RATIO 0.6 (0.7-1.7); ALBUMIN 2.5 g/dL (2.9-4.4); BETA GLOBULIN 1.1 g/dL (0.7-1.3); GAMMA GLOBULIN 1.9 g/dL (0.4-1.8); GLOBULIN, TOTAL 4.1 g/dL (2.2-3.9); M-SPIKE Not Observed g/dL (Not Observed); PROTEIN, TOTAL, SERUM 6.6 g/dL (6.0-8.5)
[2018-06-17 12:23] VITALS: BP 130/80
[2018-06-17 14:13] LABS: CLARITY,URINE CLEAR (Clear); COLOR,URINE STRAW (Yellow); GLUCOSE, URINE NEGATIVE (Neg); KETONES,URINE NEGATIVE (Neg); LEUKOCYTE ESTERASE ,URINE NEGATIVE (Neg); NITRITES, URINE NEGATIVE (Neg); OCCULT BLOOD,URINE SMALL (Neg); PROTEIN,URINE 100 mg/dl (Neg); UROBILINOGEN,URINE 0.2 E.U/dL (0.2-1.0)
[2018-06-17 14:21] LABS: TOTAL PROTEIN,URINE RANDOM 197.1 MG/DL
[2018-06-17 14:30] LABS: UA COLLECTION TYPE NON-SPECIFIED
[2018-06-17 14:31] LABS: BACTERIA,URINE NONE SEEN /HPF (Neg); RBC,URINE 0-2 /HPF (0-2); WBC,URINE NONE SEEN /HPF (0-4)
[2018-06-17 14:32] LABS: SQUAMOUS EPITHELIAL CELL,UR NONE SEEN /LPF (FEW)
--- NOTE | 2018-06-17 16:23 | NUR ---
RECEIVED TELEPHONE REPORT FROM PATRICIA NARANJO
--- NOTE | 2018-06-17 16:24 | NUR ---
I called report to Jaron GOMEZ on PCU. Patient will be wheel chaired over and the bed is ready. Patient is alert and stable
--- NOTE | 2018-06-17 17:08 | NUR ---
Patient discharged to Jaron RN in PCU in room 3026A. All belongings sent, IJ in placed saline locked, lefe vest and supplies sent. 24 hr urine started.
--- NOTE | 2018-06-17 17:11 | NUR ---
RECEIVED VIA WC. DENIES PAIN, SOB, DIZZINESS. MOLD FILLER TO TAKE VS. AGREE WITH PREVIOUS ASSESSMENT.
[2018-06-17 17:15] VITALS: BP 164/103
--- NOTE | 2018-06-17 18:30 | NUR ---
Patient in room PCU 3027. I have received report from Jaron GOMEZ and had the opportunity to ask questions and assume patient care.
--- NOTE | 2018-06-17 18:58 | NUR ---
Problems reprioritized. Patient report given, questions answered & plan of care reviewed with pablito phillips.
[2018-06-17 19:00] VITALS: BP 164/103
[2018-06-17] MEDS: insulin glargine (Lantus) pen - multi-dose SQ SCH (21:00)
[2018-06-17 23:00] VITALS: BP 140/84
[2018-06-18] MEDS: furosemide 40mg/4ml inj IV SCH ×3 (00:16→17:02)
[2018-06-18 03:00] VITALS: BP 129/77
[2018-06-18 04:51] LABS: BASOPHILS % (AUTO) 0.5 % (0-1); EOSINOPHILS # (AUTO) 0.1 X10'3 (0-0.9); EOSINOPHILS % (AUTO) 2.2 % (0-6); HEMATOCRIT 32.2 % (42.0-52.0); HEMOGLOBIN 10.5 g/dl (14.0-17.9); LYMPHOCYTES # (AUTO) 0.8 X10'3 (1.1-4.8); LYMPHOCYTES % (AUTO) 25.7 % (21-51); MEAN CORPUSCULAR HEMOGLOBIN 29.8 PG (27.0-31.0); MEAN CORPUSCULAR HGB CONC 32.8 g/dL (33.0-36.5); MEAN CORPUSCULAR VOLUME 90.9 FL (78-98); MEAN PLATELET VOLUME 7.4 FL (7.4-10.4); MONOCYTES # (AUTO) 0.5 X10'3 (0-0.9); MONOCYTES % (AUTO) 16.6 % (2-12); NEUTROPHILS # (AUTO) 1.7 X10'3 (1.8-7.7); PLATELET COUNT 261 X10'3 (140-440); RED BLOOD COUNT 3.54 X10'6 (4.70-6.10); RED CELL DISTRIBUTION WIDTH 16.6 % (11.5-14.5)
[2018-06-18 04:56] LABS: ALANINE AMINOTRANSFERASE 17 U/L (12-78); ALBUMIN 1.8 G/DL (3.4-5.0); ALBUMIN/GLOBULIN RATIO 0.4 (1.1-1.5); ALKALINE PHOSPHATASE 115 IU/L (46-116); ANION GAP 10 (8-16); ASPARTATE AMINO TRANSFERASE 15 U/L (10-37); BILIRUBIN,TOTAL 0.3 MG/DL (0.1-1.0); BLOOD UREA NITROGEN 35 MG/DL (7-18); BUN/CREATININE RATIO 12.3 (5.4-32.0); CALCIUM 7.9 MG/DL (8.5-10.1); CHLORIDE 105 MMOL/L (99-107); CREATININE 2.84 MG/DL (0.60-1.10); GLUCOSE 169 MG/DL (70-104); POTASSIUM 3.4 MMOL/L (3.5-5.1); SODIUM 141 MMOL/L (135-145); TOTAL PROTEIN 6.2 G/DL (6.4-8.2); eGFR 28 ML/MIN
[2018-06-18 07:00] VITALS: BP 141/89
[2018-06-18 07:14] LABS: ANISOCYTOSIS 1+; PLATELET ESTIMATE NORMAL; TOTAL CELLS COUNTED 100
[2018-06-18] MEDS: heparin, porcine 5000 units/ml vial SQ SCH ×2 (09:08→21:29)
[2018-06-18] MEDS: carVEDilol 12.5mg tablet PO SCH ×2 (09:08→21:29)
[2018-06-18] MEDS: atorvastatin 20mg tablet PO SCH (09:09)
[2018-06-18] MEDS: amLODIPine 5mg tablet PO SCH (09:09)
[2018-06-18] MEDS: losartan 50mg tablet PO SCH (09:09)
[2018-06-18 11:00] VITALS: BP 112/83
[2018-06-18] MEDS ORDERED: magnesium Cl slow-release 64mg tablet PO PRN (12:30)
[2018-06-18] MEDS ORDERED: magnesium 4gm in 100ml NS 100 ML IV PRN (12:30)
[2018-06-18] MEDS ORDERED: potassium Cl 20 mEq SR tablet PO PRN (12:30)
[2018-06-18] MEDS ORDERED: potassium Cl 40MEQ/NS 500ml 500 ML IV PRN ×2 (12:30)
[2018-06-18] MEDS ORDERED: magnesium 2GM in 50ml NS 50 ML IV PRN (12:30)
[2018-06-18] MEDS: potassium Cl 20 mEq SR tablet PO PRN ×3 (12:42→21:34)
[2018-06-18] MEDS: emollient combination-Eucerin 250 ML LOTION TP SCH (12:42)
[2018-06-18 15:00] VITALS: BP 143/86
--- NOTE | 2018-06-18 18:30 | NUR ---
Patient in room PCU 3027. I have received report from More GOMEZ and had the opportunity to ask questions and assume patient care. Patient finished dinner, will continue to monitor.
--- NOTE | 2018-06-18 18:45 | NUR ---
Problems reprioritized. Patient report given, questions answered & plan of care reviewed with Codie GOMEZ.
[2018-06-18 19:00] VITALS: BP 134/68
[2018-06-18] MEDS: insulin glargine (Lantus) pen - multi-dose SQ SCH (21:00)
[2018-06-19] VITALS: BP 115/68
[2018-06-19] MEDS: furosemide 40mg/4ml inj IV SCH ×2 (00:14→09:04)
[2018-06-19 04:00] VITALS: BP 111/54
[2018-06-19 05:17] LABS: BASOPHILS % (AUTO) 0.7 % (0-1); EOSINOPHILS # (AUTO) 0.1 X10'3 (0-0.9); HEMATOCRIT 32.7 % (42.0-52.0); HEMOGLOBIN 10.8 g/dl (14.0-17.9); LYMPHOCYTES # (AUTO) 1.1 X10'3 (1.1-4.8); LYMPHOCYTES % (AUTO) 29.9 % (21-51); MEAN CORPUSCULAR HGB CONC 32.9 g/dL (33.0-36.5); MEAN CORPUSCULAR VOLUME 91.3 FL (78-98); MEAN PLATELET VOLUME 7.5 FL (7.4-10.4); MONOCYTES # (AUTO) 0.5 X10'3 (0-0.9); MONOCYTES % (AUTO) 13.3 % (2-12); NEUTROPHILS # (AUTO) 2.1 X10'3 (1.8-7.7); NEUTROPHILS % (AUTO) 54.1 % (42-75); PLATELET COUNT 263 X10'3 (140-440); RED BLOOD COUNT 3.58 X10'6 (4.70-6.10); RED CELL DISTRIBUTION WIDTH 16.2 % (11.5-14.5); WHITE BLOOD COUNT 3.8 X10'3 (4.5-11.0)
[2018-06-19 05:39] LABS: ALANINE AMINOTRANSFERASE 14 U/L (12-78); ALBUMIN 1.9 G/DL (3.4-5.0); ALBUMIN/GLOBULIN RATIO 0.4 (1.1-1.5); ALKALINE PHOSPHATASE 109 IU/L (46-116); ANION GAP 9 (8-16); ASPARTATE AMINO TRANSFERASE 14 U/L (10-37); BILIRUBIN,TOTAL 0.3 MG/DL (0.1-1.0); BLOOD UREA NITROGEN 37 MG/DL (7-18); BUN/CREATININE RATIO 12.2 (5.4-32.0); CALCIUM 8.1 MG/DL (8.5-10.1); CHLORIDE 105 MMOL/L (99-107); CREATININE 3.03 MG/DL (0.60-1.10); GLUCOSE 172 MG/DL (70-104); MAGNESIUM 1.9 MG/DL (1.5-2.4); SODIUM 140 MMOL/L (135-145); TOTAL CARBON DIOXIDE 26.5 MMOL/L (24-32); TOTAL PROTEIN 6.5 G/DL (6.4-8.2); eGFR 26 ML/MIN
[2018-06-19 06:00] VITALS: BP 136/82
--- NOTE | 2018-06-19 06:08 | NUR ---
Problems reprioritized. Patient report given, questions answered & plan of care reviewed with More GOMEZ. Patient resting on left side.
[2018-06-19] MEDS: heparin, porcine 5000 units/ml vial SQ SCH (08:00)
[2018-06-19] MEDS ORDERED: K and/or MAG REPLACEMENT MC SCH (08:00)
[2018-06-19] MEDS: emollient combination-Eucerin 250 ML LOTION TP SCH (08:00)
[2018-06-19] MEDS ORDERED: CARV-50 PO (08:47)
[2018-06-19] MEDS ORDERED: LOSA50TA64 PO (08:47)
[2018-06-19] MEDS ORDERED: FURO-149 PO (08:47)
[2018-06-19] MEDS ORDERED: ATOR20TA66 PO (08:47)
[2018-06-19] MEDS ORDERED: GLIP2.5T3 PO (08:51)
[2018-06-19] MEDS: losartan 50mg tablet PO SCH (09:03)
[2018-06-19] MEDS: carVEDilol 12.5mg tablet PO SCH (09:03)
[2018-06-19] MEDS: amLODIPine 5mg tablet PO SCH (09:03)
[2018-06-19] MEDS: atorvastatin 20mg tablet PO SCH (09:03)
--- NOTE | 2018-06-19 11:50 | NUR ---
Patient stable for discharge per MD orders. All discharge instructions reviewed and all questions answered. Patient received [facility] bedside delivery for new prescriptions. Patient received education on medication times/dosages. PIV discontinued - cannula intact Telemetry monitoring discontinued. All patient belongings, Zoll lifevest and bedside delivery medications sent with patient in cab to home. Patient to follow up with PCP in 1 week.
[2018-06-20 15:11] LABS: ALBUMIN, UR 47.9 % (.); ALPHA-2-GLOBULIN,UR 7.1 % (.); BETA GLOBULIN, UR 13.8 % (.); GAMMA GLOBULIN,UR 23.3 % (.); PROTEIN,TOTAL,URINE 192.2 mg/dL (Not Estab.)
== END 2018-06-19 11:50 | disposition home or self-care (01) | DRG 194 ==
LOC: ER 02:16 → ED HOLD 06:02 → SUR 3N 11:38 → PCU 3S 06-17 17:05
PROVIDERS: ADMIT Hospitalist; ATTEND Hospitalist
PROC: 3E02340 Introduction of Influenza Vaccine into Muscle, Percutaneous Approach (ICD-10-PCS; principal; 2018-06-16)
PROC: 3E0234Z Introduction of Serum, Toxoid and Vaccine into Muscle, Percutaneous Approach (ICD-10-PCS; 2018-06-16)
DX: I13.2 Hypertensive heart and chronic kidney disease with heart failure and with stage 5 chronic kidney disease, or end stage renal disease (principal); N17.9 Acute kidney failure, unspecified; E11.22 Type 2 diabetes mellitus with diabetic chronic kidney disease; E11.319 Type 2 diabetes mellitus with unspecified diabetic retinopathy without macular edema; E11.42 Type 2 diabetes mellitus with diabetic polyneuropathy; D63.8 Anemia in other chronic diseases classified elsewhere; E78.5 Hyperlipidemia, unspecified; E87.5 Hyperkalemia; F17.290 Nicotine dependence, other tobacco product, uncomplicated; E11.51 Type 2 diabetes mellitus with diabetic peripheral angiopathy without gangrene; I42.9 Cardiomyopathy, unspecified; I50.23 Acute on chronic systolic (congestive) heart failure; N04.9 Nephrotic syndrome with unspecified morphologic changes; E11.621 Type 2 diabetes mellitus with foot ulcer; L97.419 Non-pressure chronic ulcer of right heel and midfoot with unspecified severity; N18.6 End stage renal disease; Z60.2 Problems related to living alone; E11.65 Type 2 diabetes mellitus with hyperglycemia; N43.3 Hydrocele, unspecified; N50.89 Other specified disorders of the male genital organs; Z79.84 Long term (current) use of oral hypoglycemic drugs; Z79.899 Other long term (current) drug therapy; Z89.422 Acquired absence of other left toe(s); Z90.49 Acquired absence of other specified parts of digestive tract; Z91.14 Patient's other noncompliance with medication regimen; Z23 Encounter for immunization; Z89.012 Acquired absence of left thumb; Z79.4 Long term (current) use of insulin
CPT/HCPCS: 36415; 71045; 74176; 76775; 76870; 80053; 80061; 80305; 81001; 82570; 82948; 83036; 83735; 83880; 83935; 84155; 84156; 84165; 84166; 84300; 84443; 85025; 85651; 86060; 86140; 87070; 90732; 93005; 93306; 96374; 96375; 96376; 99285; G0378; J0360; J1644; J1815; J1940; J2060; J2405; J3010; Q2037

== ENCOUNTER 2018-09-01 11:26 | Inpatient (IN) | payer MEDICAID ==
[~2018-09-01] VITALS: Ht 190.5 cm; Wt 71.0 kg
[~2018-09-01 11:26] MED LIST changes: -AMLO5TAB16 PO; +ATOR20TA66 PO; +CARV-50 PO; +FURO-149 PO; +GLIP2.5T3 PO; +LOSA50TA64 PO; -RIFA300C4
--- NOTE | 2018-09-01 11:58 | NUR ---
XRAY AT BEDSIDE.
[2018-09-01 12:25] LABS: BASOPHILS % (AUTO) 0.1 % (0-1); EOSINOPHILS % (AUTO) 0 % (0-6); HEMATOCRIT 27.1 % (42.0-52.0); HEMOGLOBIN 8.9 g/dl (14.0-17.9); LYMPHOCYTES % (AUTO) 6.3 % (21-51); MEAN CORPUSCULAR HEMOGLOBIN 29.1 PG (27.0-31.0); MEAN CORPUSCULAR HGB CONC 32.9 g/dL (33.0-36.5); MEAN CORPUSCULAR VOLUME 88.4 FL (78-98); MEAN PLATELET VOLUME 7.9 FL (7.4-10.4); MONOCYTES # (AUTO) 1.5 X10'3 (0-0.9); MONOCYTES % (AUTO) 9.4 % (2-12); NEUTROPHILS # (AUTO) 13.2 X10'3 (1.8-7.7); NEUTROPHILS % (AUTO) 84.2 % (42-75); PLATELET COUNT 231 X10'3 (140-440); RED BLOOD COUNT 3.06 X10'6 (4.70-6.10); RED CELL DISTRIBUTION WIDTH 17.1 % (11.5-14.5); WHITE BLOOD COUNT 15.7 X10'3 (4.5-11.0)
[2018-09-01] MEDS ORDERED: TETanus/Pertussis (Acell)/Diphther VAC/PF (Tdap-Adult) 0.5ml syringe IM ONE (12:25)
[2018-09-01] MEDS ORDERED: vancomycin/NS 1 GM ADD-VANTAGE 250 ML IV ONE (12:25)
[2018-09-01] MEDS ORDERED: piperacillin/tazo 3.375gm/50ml 50 ML IV ONE (12:25)
[2018-09-01] MEDS ORDERED: normal saline 1000ML IV soln IV ONE (12:25)
[2018-09-01 12:35] LABS: ALANINE AMINOTRANSFERASE 35 U/L (12-78); ALBUMIN 2.2 G/DL (3.4-5.0); ALBUMIN/GLOBULIN RATIO 0.4 (1.1-1.5); ALKALINE PHOSPHATASE 113 IU/L (46-116); ANION GAP 13 (8-16); ASPARTATE AMINO TRANSFERASE 20 U/L (10-37); BLOOD UREA NITROGEN 68 MG/DL (7-18); BUN/CREATININE RATIO 10.3 (5.4-32.0); CALCIUM 8.7 MG/DL (8.5-10.1); CHLORIDE 100 MMOL/L (99-107); CREATININE 6.62 MG/DL (0.60-1.10); GLUCOSE 134 MG/DL (70-104); POTASSIUM 4.3 MMOL/L (3.5-5.1); SODIUM 131 MMOL/L (135-145); TOTAL CARBON DIOXIDE 17.6 MMOL/L (24-32); TOTAL PROTEIN 8.3 G/DL (6.4-8.2); eGFR 11 ML/MIN
--- NOTE | 2018-09-01 12:35 | NUR ---
Patient has odorous wound to right foot, dressing in place.
[2018-09-01 13:22] LABS: ANISOCYTOSIS 1+; PLATELET ESTIMATE NORMAL; TOTAL CELLS COUNTED 100
[2018-09-01 13:25] LABS: ROULEAUX 2+; TOXIC GRANULATION 1+
[2018-09-01] MEDS ORDERED: magnesium hydroxide 30ml (MOM) UD suspension PO PRN (13:25)
[2018-09-01] MEDS ORDERED: mag hydrox/Alum hydrox/simeth 30ml oral suspension PO PRN (13:25)
[2018-09-01] MEDS ORDERED: MESSAGE TO PHARMACY PO ONE (13:25)
[2018-09-01] MEDS ORDERED: morphine 2 MG/ML inj. syringe IV PRN (13:25)
[2018-09-01] MEDS ORDERED: ondansetron/PF 4mg/2ml inj IV PRN (13:25)
[2018-09-01] MEDS ORDERED: glucagon, human recombinant 1mg kit SUBCUT PRN (13:25)
[2018-09-01] MEDS ORDERED: dextrose 50%-water 50ml dispensing syringe IV PRN ×2 (13:25)
[2018-09-01] MEDS ORDERED: HYDROcodone/acetaminophen 5mg/325mg tablet PO PRN (13:25)
[2018-09-01] MEDS ORDERED: HYDROcodone/acetaminophen 10/325mg tab PO PRN (13:25)
[2018-09-01] MEDS ORDERED: acetaminophen 325mg tablet PO PRN (13:25)
--- NOTE | 2018-09-01 13:31 | NUR ---
Patient difficult IV start. Naima GOMEZ aware and attmpting to place IV. Patient tolerating well.
[2018-09-01] MEDS ORDERED: vancomycin/NS 1 GM ADD-VANTAGE 250 ML IV PRN (13:50)
[2018-09-01 14:04] LABS: HEMOGLOBIN A1C 7.4 % (4.5-6.2)
--- NOTE | 2018-09-01 14:11 | NUR ---
culture swab righ foot, sent to lab
--- NOTE | 2018-09-01 14:12 | NUR ---
GAUZE BANDAGE PLACED ON RIGHT FOOT.
--- NOTE | 2018-09-01 14:37 | NUR ---
Sunita alcaraz swabbed right foot wound and replaced dressing. Reports two wounds: one wound to bottom of foot and wound to top of foot. Patient tolerated well.
[2018-09-01] MEDS ORDERED: FURO40TA4 PO (14:58)
[2018-09-01] MEDS ORDERED: GLIP2.5T3 PO (14:58)
[2018-09-01] MEDS ORDERED: ATOR20TA66 PO (14:58)
[2018-09-01] MEDS ORDERED: LOSA50TA64 PO (14:58)
[2018-09-01] MEDS ORDERED: CARV-50 PO (14:58)
[2018-09-01 15:08] LABS: CLARITY,URINE SLIGHTLY CLOUDY (Clear); COLOR,URINE STRAW (Yellow); GLUCOSE, URINE NEGATIVE (Neg); KETONES,URINE NEGATIVE (Neg); LEUKOCYTE ESTERASE ,URINE NEGATIVE (Neg); NITRITES, URINE NEGATIVE (Neg); OCCULT BLOOD,URINE MODERATE (Neg); PROTEIN,URINE 100 mg/dl (Neg); UROBILINOGEN,URINE 0.2 E.U/dL (0.2-1.0)
[2018-09-01 15:09] LABS: UA COLLECTION TYPE CLN CATCH MIDSTREAM
[2018-09-01 15:18] LABS: COARSE GRANULAR CAST 0-3 /LPF (NEGATIVE); HYALINE CASTS 0-3 /LPF (NEGATIVE); MUCUS STRANDS FEW /LPF (Neg); SQUAMOUS EPITHELIAL CELL,UR FEW /LPF (FEW); TRANSITIONAL EPI CELLS,URINE FEW /HPF
[2018-09-01 15:19] LABS: WBC,URINE 0-4 /HPF (0-4)
[2018-09-01 15:20] LABS: AMORPHOUS URATES 3+; BACTERIA,URINE NONE SEEN /HPF (Neg)
[2018-09-01 15:23] LABS: RENAL CELLS, URINE FEW /HPF
[2018-09-01] MEDS ORDERED: piperacillin/tazo 4.5gm/100ml 100 ML IV SCH (16:00)
--- NOTE | 2018-09-01 16:07 | NUR ---
Patient sleeping in bed with lights dimmed. Respirations even, no distress noted.
[2018-09-01] MEDS: normal saline 1000ml 1,000 ML IV SCH ×2 (18:21→23:22)
[2018-09-01] MEDS ORDERED: vancomycin/NS 1 GM ADD-VANTAGE 250 ML IV SCH (20:00)
[2018-09-01] MEDS: piperacillin/tazo 3.375gm/50 ML IV SCH (20:28)
[2018-09-01] MEDS: insulin glargine (Lantus) pen - multi-dose SQ SCH (21:00)
[2018-09-01 22:00] VITALS: BP 157/74
[2018-09-02] VITALS (19 sets, daily range): BP systolic 93–173; BP diastolic 50–82
[2018-09-02] MEDS: VANCOMYCIN LEVEL IV SCH (03:18)
[2018-09-02] MEDS: normal saline 1000ml 1,000 ML IV SCH ×2 (05:52→20:07)
[2018-09-02 06:18] LABS: BASOPHILS % (AUTO) 0.4 % (0-1); EOSINOPHILS % (AUTO) 0.1 % (0-6); LYMPHOCYTES # (AUTO) 0.8 X10'3 (1.1-4.8); LYMPHOCYTES % (AUTO) 6.2 % (21-51); MEAN CORPUSCULAR HEMOGLOBIN 29.7 PG (27.0-31.0); MEAN CORPUSCULAR HGB CONC 32.9 g/dL (33.0-36.5); MEAN CORPUSCULAR VOLUME 90.4 FL (78-98); MEAN PLATELET VOLUME 8.1 FL (7.4-10.4); MONOCYTES # (AUTO) 1.4 X10'3 (0-0.9); MONOCYTES % (AUTO) 11.4 % (2-12); NEUTROPHILS # (AUTO) 10.1 X10'3 (1.8-7.7); NEUTROPHILS % (AUTO) 81.9 % (42-75); PLATELET COUNT 190 X10'3 (140-440); RED BLOOD COUNT 2.36 X10'6 (4.70-6.10); RED CELL DISTRIBUTION WIDTH 17.5 % (11.5-14.5); WHITE BLOOD COUNT 12.4 X10'3 (4.5-11.0)
[2018-09-02 06:25] LABS: HEMATOCRIT 21.3 % (42.0-52.0)
--- NOTE | 2018-09-02 06:39 | NUR ---
Problems reprioritized. Patient report given, questions answered & plan of care reviewed with SARAH. Addendum: 09/02/18 at 0639 by Terrence Mota RN Amended: Links added.
[2018-09-02 06:46] LABS: ALBUMIN 1.6 G/DL (3.4-5.0); ANION GAP 18 (8-16); BLOOD UREA NITROGEN 64 MG/DL (7-18); BUN/CREATININE RATIO 10.6 (5.4-32.0); CALCIUM 8.2 MG/DL (8.5-10.1); CHLORIDE 107 MMOL/L (99-107); CREATININE 6.02 MG/DL (0.60-1.10); GLUCOSE 91 MG/DL (70-104); POTASSIUM 4.4 MMOL/L (3.5-5.1); SODIUM 137 MMOL/L (135-145); VANCOMYCIN,RANDOM 11.4 UG/ML; eGFR 12 ML/MIN
[2018-09-02 06:51] LABS: TOTAL CARBON DIOXIDE 12.4 MMOL/L (24-32)
--- NOTE | 2018-09-02 06:57 | NUR ---
PAGER ID: [phone] MESSAGE: [id number] Roshan Lara Critical values of 7.0/21.3 H&H and CO2 12.4 Rachel GOMEZ [id number]
[2018-09-02] MEDS ORDERED: vancomycin/NS 1 GM ADD-VANTAGE 250 ML IV ONE (07:25)
[2018-09-02] MEDS: piperacillin/tazo 3.375gm/50 ML IV SCH ×2 (08:00→20:07)
[2018-09-02] MEDS: morphine 2 MG/ML inj. syringe IV PRN ×2 (09:50→21:51)
--- NOTE | 2018-09-02 10:04 | NUR ---
PAGER ID: [phone] MESSAGE: Yessi Lara Pt. NPO and DM2. BG this AM 87. Did you want to change fluids? Rachel [id number]
[2018-09-02] MEDS ORDERED: dextrose 5%-1/2 normal saline 1,000 ML IV SCH (10:35)
[2018-09-02 11:57] LABS: INR 1.1 INR
[2018-09-02 11:59] LABS: ALBUMIN 1.6 G/DL (3.4-5.0); ALBUMIN/GLOBULIN RATIO 0.3 (1.1-1.5); ALKALINE PHOSPHATASE 84 IU/L (46-116); BLOOD UREA NITROGEN 63 MG/DL (7-18); BUN/CREATININE RATIO 10.5 (5.4-32.0); CHLORIDE 109 MMOL/L (99-107); CREATININE 6.01 MG/DL (0.60-1.10); PRE OP ALT 21 U/L (30-65); PRE OP ANION GAP 13 (8-16); PRE OP AST 12 U/L (10-37); PRE OP GLUCOSE 93 MG/DL (70-104); PRE OP POTASSIUM 4.3 MMOL/L (3.4-5.1); PRE OP SODIUM 138 MMOL/L (135-145); TOTAL CARBON DIOXIDE 15.8 MMOL/L (24-32); TOTAL PROTEIN 6.7 G/DL (6.4-8.2); eGFR 12 ML/MIN
--- NOTE | 2018-09-02 13:23 | NUR ---
Wound/DM consult: Pt admit with wound and osteomyelitis of the right foot and with A1c 7.4. Attempted visit with pt at bedside however pt was sleeping and just briefly woke up then went back to sleep. Brief verbal protein education provided with written protein and DM ed with referral to outpatient DM class and RD contact information. Pt previously admitted and seen by RD on 06/16/18 with A1c 7.5 and was given written and verbal DM ed with referral to outpatient DM class and RD contact information. Per lab hx pt A1c has gone down to 7.4 from 9.4 in the last year. Pt currently NPO. Will continue to follow and monitor need for ONS to provide additional protein to meet the needs of wound healing with diet advancement. Recommendations: 1) Advance to renal CHO controlled diet as medically indicated 2) Monitor need for ONS with diet advancement 3) Monitor need for additional verbal DM and high protein education 4) Wt per rx Addendum: 09/02/18 at [address] Amended: Links added.
[2018-09-02] MEDS: atorvastatin 20mg tablet PO SCH ×2 (14:30→15:01)
--- NOTE | 2018-09-02 15:04 | NUR ---
PAGER ID: [phone] MESSAGE: [id number] BRET VALDOVINOS PLEASE CALL ME REGARDING THIS PT. SARAH [id number] NEW STATIN ORDER NOTED. DISCUSSED WITH MD IT IS OK TO HOLD THIS MEDIATION UNTIL AFTER PT. IS NO LONGER NPO.
--- NOTE | 2018-09-02 16:00 | NUR ---
Patient taken to OR via hospital bed enrkie wipes done. Patient dressed in hospital gown. Blood running and Valeria in Recovery aware that blood is approx 3/4 complete. Valeria will take over blood transfusion.
[2018-09-02] MEDS ORDERED: ringers solution, lacted 1,000 ML IV SCH (16:26)
[2018-09-02] MEDS ORDERED: hydrALAZINE 20mg/ml inj. IV PRN (16:30)
[2018-09-02] MEDS ORDERED: fentaNYL/PF 50MCG/1 ML 2ML syringe IV PRN ×2 (16:30)
[2018-09-02] MEDS ORDERED: morphine 4 MG/ML inj SYRINge IV PRN ×2 (16:30)
[2018-09-02] MEDS ORDERED: labetalol 20mg/4ml (5mg/ml) syringe IV PRN (16:30)
[2018-09-02] MEDS ORDERED: ondansetron/PF 4mg/2ml inj IV PRN (16:30)
[2018-09-02] MEDS ORDERED: sevoflurane 250ml liquid IH ONE (16:31)
[2018-09-02] MEDS ORDERED: propofol 10mg/ml 20ml vial IV ONE (16:31)
[2018-09-02] MEDS ORDERED: LIDOcaine 1%/PF 5ML 10 MG/ML VIAL ONE (16:31)
[2018-09-02] MEDS ORDERED: midazolam 2 mg/2 ml injection ONE (16:37)
[2018-09-02] MEDS ORDERED: fentaNYL/PF 50MCG/1 ML 2ML syringe ONE ×2 (16:37→17:02)
--- NOTE | 2018-09-02 16:45 | NUR ---
Pt. left med surg. floor to go to OR. Blood infusion incomplete at this time, but will cont. in OR. OR charge nurse aware per Jillian GMOEZ.
--- NOTE | 2018-09-02 17:39 | NUR ---
BG 174 DR SON NOTIFIED NO NEW ORDERS
--- NOTE | 2018-09-02 17:40 | NUR ---
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
--- NOTE | 2018-09-02 17:40 | NUR ---
Received from OR via BED , accompanied by Anesthesiologist DR DR SON and report given by Anesthesiolgist. PATIENT WAKING UP, DENIES PAIN, V/S WNL, 20G PIV LUE , DRESSING TO RIGHT BKA CDI
--- NOTE | 2018-09-02 18:30 | NUR ---
PATIENT A&OX4, DENIES PAIN, V/S WNL, 20G PIV LUE , DRESSING TO RIGHT BKA CDI. PATIENT TAKEN TO WITH ALL BELONGINGS AND HOOKED UP TO MONITORS IN ROOM AND REPORT GIVEN TO MEDICAL SAFETY DIRECTOR WHO HAS TAKEN OVER PATIENT CARE.
--- NOTE | 2018-09-02 18:30 | NUR ---
Patient in room TAMAR 356. I have received report from Rachel GOMEZ and had the opportunity to ask questions and assume patient care.
--- NOTE | 2018-09-02 18:45 | NUR ---
Pt. in bed, hungry, provided with snacks. Post op vitals started and stable at this time. No s/sx bleeding noted at the BKA site. Gave report to Shannon GOMEZ.
--- NOTE | 2018-09-02 18:56 | NUR ---
Blood transfusion completion not documented in OR. This RN ended infusion now in charting but in reality blood infusion ended earlier at unknown time.
[2018-09-02 19:10] LABS: HEMATOCRIT 23.7 % (42.0-52.0); HEMOGLOBIN 7.7 g/dl (14.0-17.9); MEAN CORPUSCULAR HEMOGLOBIN 29.1 PG (27.0-31.0); MEAN CORPUSCULAR HGB CONC 32.4 g/dL (33.0-36.5); MEAN CORPUSCULAR VOLUME 89.9 FL (78-98); MEAN PLATELET VOLUME 7.8 FL (7.4-10.4); PLATELET COUNT 195 X10'3 (140-440); RED BLOOD COUNT 2.64 X10'6 (4.70-6.10); RED CELL DISTRIBUTION WIDTH 17.3 % (11.5-14.5); WHITE BLOOD COUNT 12.7 X10'3 (4.5-11.0)
[2018-09-02] MEDS: carVEDilol 12.5mg tablet PO SCH (20:06)
[2018-09-02] MEDS: insulin glargine (Lantus) pen - multi-dose SQ SCH (21:00)
[2018-09-03] VITALS (14 sets, daily range): BP systolic 96–144; BP diastolic 42–81
[2018-09-03] MEDS: VANCOMYCIN LEVEL IV SCH (03:00)
--- NOTE | 2018-09-03 06:16 | NUR ---
Problems reprioritized. Patient report given, questions answered & plan of care reviewed with Abida GOMEZ.
--- NOTE | 2018-09-03 06:19 | NUR ---
Patient in room TAMAR 356. I have received report from Shannon GOMEZ and had the opportunity to ask questions and assume patient care.
[2018-09-03 06:36] LABS: BASOPHILS % (AUTO) 0.2 % (0-1); EOSINOPHILS # (AUTO) 0.1 X10'3 (0-0.9); EOSINOPHILS % (AUTO) 0.9 % (0-6); HEMATOCRIT 22.2 % (42.0-52.0); HEMOGLOBIN 7.5 g/dl (14.0-17.9); LYMPHOCYTES # (AUTO) 0.8 X10'3 (1.1-4.8); LYMPHOCYTES % (AUTO) 6.2 % (21-51); MEAN CORPUSCULAR HEMOGLOBIN 29.5 PG (27.0-31.0); MEAN CORPUSCULAR HGB CONC 33.6 g/dL (33.0-36.5); MEAN CORPUSCULAR VOLUME 87.9 FL (78-98); MEAN PLATELET VOLUME 7.9 FL (7.4-10.4); MONOCYTES # (AUTO) 1.5 X10'3 (0-0.9); MONOCYTES % (AUTO) 11.9 % (2-12); NEUTROPHILS # (AUTO) 9.9 X10'3 (1.8-7.7); NEUTROPHILS % (AUTO) 80.8 % (42-75); PLATELET COUNT 241 X10'3 (140-440); RED BLOOD COUNT 2.52 X10'6 (4.70-6.10); RED CELL DISTRIBUTION WIDTH 17.4 % (11.5-14.5); WHITE BLOOD COUNT 12.2 X10'3 (4.5-11.0)
--- NOTE | 2018-09-03 06:42 | NUR ---
Dr Van visited pt at 0631. He stated that he will see the pt in two weeks in his office at [facility] to remove the king. He made pt aware that sometimes the incision can take a while to heal. No changes in orders at this time.
[2018-09-03 06:56] LABS: ALBUMIN 1.6 G/DL (3.4-5.0); ANION GAP 13 (8-16); BLOOD UREA NITROGEN 58 MG/DL (7-18); BUN/CREATININE RATIO 9.9 (5.4-32.0); CALCIUM 8.1 MG/DL (8.5-10.1); CHLORIDE 106 MMOL/L (99-107); CREATININE 5.84 MG/DL (0.60-1.10); GLUCOSE 200 MG/DL (70-104); POTASSIUM 3.9 MMOL/L (3.5-5.1); SODIUM 137 MMOL/L (135-145); TOTAL CARBON DIOXIDE 18.5 MMOL/L (24-32); eGFR 12 ML/MIN
[2018-09-03] MEDS: piperacillin/tazo 3.375gm/50 ML IV SCH ×2 (07:45→20:00)
[2018-09-03] MEDS: atorvastatin 20mg tablet PO SCH (07:47)
[2018-09-03] MEDS: carVEDilol 12.5mg tablet PO SCH ×2 (07:47→21:22)
[2018-09-03] MEDS: normal saline 1000ml 1,000 ML IV SCH (13:27)
[2018-09-03] MEDS: insulin Lispro (HumaLOG) vial - multi-dose SQ SCH (13:31)
--- NOTE | 2018-09-03 16:16 | NUR ---
Attempted to give report to PCU, the nurse to receive report said she will call me back in 10 minutes
--- NOTE | 2018-09-03 16:36 | NUR ---
Report given to ENGLISH AS A SECOND LANGUAGE INSTRUCTORPATRICIA Andujar
--- NOTE | 2018-09-03 16:57 | NUR ---
Transferred patient to PCU room 3013A via bed.
--- NOTE | 2018-09-03 17:00 | NUR ---
Pt arrived to unit and vital signs were obtained, 2RN skin check was done and blood glucose was checked. Pt was oriented to room and given call light. Mobile telemetry monitoring was placed and patient medications were received by RN who laced them in the [employer].
[2018-09-03] MEDS: dextrose ORAL solution 15 GM/59 ML bottle PO PRN ×3 (17:10→17:57)
--- NOTE | 2018-09-03 18:30 | NUR ---
Patient in room PCU 3013. I have received report from Pratima GOMEZ and had the opportunity to ask questions and assume patient care.
--- NOTE | 2018-09-03 18:46 | NUR ---
Received report from Kiki GOMEZoral surgery assistant RN and patient arrived on unit at 1700. Patient blood glucose was checked and was critical low 54. Patient was set up on mobile monitor while giving glucose shots. Patient received 4 glucose shots and food which resulted in a blood glucose of 73 at 1800. operations technician RN was informed of the situation and will follow up with a blood glucose check.
--- NOTE | 2018-09-03 18:50 | NUR ---
Problems reprioritized. Patient report given, questions answered & plan of care reviewed with Lakia GOMEZ. Patient stable at transfer of care.
[2018-09-03] MEDS: DOBUTamine-DoBUTrex 500mg/D5W 250 ML IV SCH (19:00)
[2018-09-03] MEDS: lactobacillus rhamnosus 10,000 MMU CELLS/CAPSULE PO SCH (21:21)
[2018-09-03] MEDS: insulin glargine (Lantus) pen - multi-dose SQ SCH (21:41)
[2018-09-04] VITALS (10 sets, daily range): BP systolic 128–159; BP diastolic 57–98
[2018-09-04] MEDS: VANCOMYCIN LEVEL IV SCH (03:00)
--- NOTE | 2018-09-04 06:00 | NUR ---
Assumed patient care JACKIE Larsen RN
--- NOTE | 2018-09-04 06:16 | NUR ---
Problems reprioritized. Patient report given, questions answered & plan of care reviewed with Gloria GOMEZ.
[2018-09-04 06:38] LABS: BASOPHILS % (AUTO) 0.3 % (0-1); EOSINOPHILS # (AUTO) 0.1 X10'3 (0-0.9); HEMOGLOBIN 7.2 g/dl (14.0-17.9); LYMPHOCYTES % (AUTO) 8.9 % (21-51); MEAN CORPUSCULAR HGB CONC 32.8 g/dL (33.0-36.5); MEAN CORPUSCULAR VOLUME 88.2 FL (78-98); MEAN PLATELET VOLUME 7.9 FL (7.4-10.4); MONOCYTES # (AUTO) 1.3 X10'3 (0-0.9); MONOCYTES % (AUTO) 11.7 % (2-12); NEUTROPHILS # (AUTO) 8.7 X10'3 (1.8-7.7); NEUTROPHILS % (AUTO) 78.1 % (42-75); PLATELET COUNT 301 X10'3 (140-440); RED BLOOD COUNT 2.48 X10'6 (4.70-6.10); RED CELL DISTRIBUTION WIDTH 17.5 % (11.5-14.5); WHITE BLOOD COUNT 11.1 X10'3 (4.5-11.0)
[2018-09-04 06:50] LABS: HEMATOCRIT 21.9 % (42.0-52.0)
[2018-09-04 06:58] LABS: ALBUMIN 1.6 G/DL (3.4-5.0); ANION GAP 11 (8-16); BLOOD UREA NITROGEN 52 MG/DL (7-18); BUN/CREATININE RATIO 9.9 (5.4-32.0); CALCIUM 8.2 MG/DL (8.5-10.1); CHLORIDE 105 MMOL/L (99-107); CREATININE 5.24 MG/DL (0.60-1.10); GLUCOSE 138 MG/DL (70-104); POTASSIUM 4.1 MMOL/L (3.5-5.1); SODIUM 133 MMOL/L (135-145); eGFR 14 ML/MIN
--- NOTE | 2018-09-04 07:15 | NUR ---
Good morning Roshan Lara 3013 A critical hematocrit 21.9 Please advise Gloria GOMEZ #[phone]
[2018-09-04] MEDS: carVEDilol 12.5mg tablet PO SCH ×2 (07:27→19:50)
[2018-09-04] MEDS: atorvastatin 20mg tablet PO SCH (07:27)
[2018-09-04] MEDS: lactobacillus rhamnosus 10,000 MMU CELLS/CAPSULE PO SCH ×2 (07:27→19:50)
[2018-09-04] MEDS: piperacillin/tazo 3.375gm/50 ML IV SCH ×2 (07:28→19:51)
[2018-09-04 07:31] LABS: VANCOMYCIN,RANDOM 14.2 UG/ML
[2018-09-04] MEDS ORDERED: vancomycin/NS 1 GM ADD-VANTAGE 250 ML IV ONE (07:45)
[2018-09-04] MEDS: insulin Lispro (HumaLOG) vial - multi-dose SQ SCH (09:02)
--- NOTE | 2018-09-04 12:00 | NUR ---
BS 71 at lunch time tray with food on the table. Patient do not like food with was served apple juice was given Beatris Larsen RN
[2018-09-04] MEDS: DOBUTamine-DoBUTrex 500mg/D5W 250 ML IV SCH (16:21)
[2018-09-04] MEDS: sodium bicarbonate (8.4%) inj. 150 MEQ in dextrose 5%-water 1,000 ML IV SCH (16:30)
[2018-09-04] MEDS: insulin glargine (Lantus) pen - multi-dose SQ SCH (21:33)
[2018-09-05] VITALS (20 sets, daily range): BP systolic 122–171; BP diastolic 39–76
[2018-09-05] MEDS: VANCOMYCIN LEVEL IV SCH (03:00)
--- NOTE | 2018-09-05 06:10 | NUR ---
Problems reprioritized. Patient report given, questions answered & plan of care reviewed with Molina GOMEZ.
[2018-09-05 06:17] LABS: BASOPHILS % (AUTO) 0.4 % (0-1); EOSINOPHILS # (AUTO) 0.1 X10'3 (0-0.9); EOSINOPHILS % (AUTO) 1.2 % (0-6); LYMPHOCYTES # (AUTO) 0.7 X10'3 (1.1-4.8); LYMPHOCYTES % (AUTO) 6.4 % (21-51); MEAN CORPUSCULAR HEMOGLOBIN 29.5 PG (27.0-31.0); MEAN CORPUSCULAR HGB CONC 33.4 g/dL (33.0-36.5); MEAN CORPUSCULAR VOLUME 88.4 FL (78-98); MEAN PLATELET VOLUME 7.7 FL (7.4-10.4); MONOCYTES # (AUTO) 1.1 X10'3 (0-0.9); MONOCYTES % (AUTO) 9.8 % (2-12); NEUTROPHILS # (AUTO) 8.8 X10'3 (1.8-7.7); NEUTROPHILS % (AUTO) 82.2 % (42-75); PLATELET COUNT 273 X10'3 (140-440); RED BLOOD COUNT 2.05 X10'6 (4.70-6.10); RED CELL DISTRIBUTION WIDTH 17.2 % (11.5-14.5); WHITE BLOOD COUNT 10.7 X10'3 (4.5-11.0)
[2018-09-05 06:31] LABS: HEMATOCRIT 18.1 % (42.0-52.0)
--- NOTE | 2018-09-05 06:35 | NUR ---
PAGER ID: [phone] MESSAGE: RM 3013A Roshan Graham H&H 6 and 18.1 PATRICIA Auguste Ext [phone]
--- NOTE | 2018-09-05 06:39 | NUR ---
Patient in room PCU 3013. I have received report from PATRICIA Dorman and had the opportunity to ask questions and assume patient care.
[2018-09-05 06:53] LABS: ALBUMIN 1.3 G/DL (3.4-5.0); ANION GAP 12 (8-16); BLOOD UREA NITROGEN 49 MG/DL (7-18); BUN/CREATININE RATIO 9.9 (5.4-32.0); CALCIUM 7.7 MG/DL (8.5-10.1); CHLORIDE 108 MMOL/L (99-107); CREATININE 4.94 MG/DL (0.60-1.10); GLUCOSE 132 MG/DL (70-104); POTASSIUM 4.2 MMOL/L (3.5-5.1); SODIUM 136 MMOL/L (135-145); TOTAL CARBON DIOXIDE 15.6 MMOL/L (24-32); VANCOMYCIN,RANDOM 19.4 UG/ML; eGFR 15 ML/MIN
--- NOTE | 2018-09-05 07:01 | NUR ---
PAGER ID: [phone] MESSAGE: RM 3013A Roshan Bartlett H&H 6 and 18.1 PATRICIA Auguste Ext [phone]
[2018-09-05] MEDS: sodium bicarbonate (8.4%) inj. 150 MEQ in dextrose 5%-water 1,000 ML IV SCH (07:46)
[2018-09-05] MEDS: piperacillin/tazo 3.375gm/50 ML IV SCH (07:50)
[2018-09-05] MEDS: atorvastatin 20mg tablet PO SCH (07:50)
[2018-09-05] MEDS: lactobacillus rhamnosus 10,000 MMU CELLS/CAPSULE PO SCH ×2 (07:50→20:12)
[2018-09-05] MEDS: carVEDilol 12.5mg tablet PO SCH ×2 (07:50→20:12)
[2018-09-05] MEDS: insulin Lispro (HumaLOG) vial - multi-dose SQ SCH ×2 (08:01→13:51)
--- NOTE | 2018-09-05 11:50 | NUR ---
PAGER ID: [phone] MESSAGE: RM 3013A Roshan Lara. May need a picc line. Dobutamine infiltrated. Dobutamine and bicarb are incompatible in PIV's. Then to run blood we would need a third line. Patient is a hard stick. PATRICIA Auguste Ext [phone]
--- NOTE | 2018-09-05 12:04 | NUR ---
PAGER ID: [phone] MESSAGE: RM [id number] Roshan Lara will need the PIC nurse we failed to get a new PIV in patient and he needs a line or 3 PIV's. One went bad. So he only has one good IV. PATRICIA Auguste Ext [phone]
--- NOTE | 2018-09-05 12:50 | NUR ---
Called Dr Hubbard about needing two more IV's or a PICC line to be able to run the blood, bicarb and dobutamine. Told himi that we were unable to get a PIV on him. He said to hold the bicarb. Addendum: 09/05/18 at 1254 by Molina Reinoso RN Also said no on the PICC and see if someone can get a PIV in him.
--- NOTE | 2018-09-05 12:53 | NUR ---
Paged PICC to get a PIV in patient Addendum: 09/05/18 at 1453 by Molina Reinoso RN paged a second time. Unable to get a second PIV to be able to run blood yet. was told in page of this problem earlier.
[2018-09-05] MEDS: DOBUTamine-DoBUTrex 500mg/D5W 250 ML IV SCH ×2 (14:43→21:09)
--- NOTE | 2018-09-05 15:49 | NUR ---
PAGER ID: [phone] MESSAGE: [id number] Roshan Lara: Are you okay with an EJ on the patient? PATRICIA Auguste Ext [phone]
[2018-09-05] MEDS: dextrose ORAL solution 15 GM/59 ML bottle PO PRN (17:50)
--- NOTE | 2018-09-05 17:54 | NUR ---
PAGER ID: [phone] MESSAGE: RM [id number] [facility] Blood sugar 40. Gave patient glucose 30mg and patient is eating will recheck in 15 min. PATRICIA Auguste Ext [phone]
--- NOTE | 2018-09-05 18:26 | NUR ---
Problems reprioritized. Patient report given, questions answered & plan of care reviewed with PATRICIA Porter.
[2018-09-05] MEDS: insulin glargine (Lantus) pen - multi-dose SQ SCH (21:40)
[2018-09-06] VITALS (9 sets, daily range): BP systolic 110–176; BP diastolic 55–82
[2018-09-06 06:09] LABS: BASOPHILS % (AUTO) 0.3 % (0-1); EOSINOPHILS # (AUTO) 0.2 X10'3 (0-0.9); EOSINOPHILS % (AUTO) 1.4 % (0-6); HEMATOCRIT 23.9 % (42.0-52.0); LYMPHOCYTES % (AUTO) 8.3 % (21-51); MEAN CORPUSCULAR HEMOGLOBIN 29.1 PG (27.0-31.0); MEAN CORPUSCULAR HGB CONC 33.7 g/dL (33.0-36.5); MEAN CORPUSCULAR VOLUME 86.5 FL (78-98); MEAN PLATELET VOLUME 7.5 FL (7.4-10.4); MONOCYTES # (AUTO) 0.9 X10'3 (0-0.9); MONOCYTES % (AUTO) 7.6 % (2-12); NEUTROPHILS # (AUTO) 10.2 X10'3 (1.8-7.7); NEUTROPHILS % (AUTO) 82.4 % (42-75); PLATELET COUNT 379 X10'3 (140-440); RED BLOOD COUNT 2.76 X10'6 (4.70-6.10); RED CELL DISTRIBUTION WIDTH 17.4 % (11.5-14.5); WHITE BLOOD COUNT 12.4 X10'3 (4.5-11.0)
--- NOTE | 2018-09-06 06:36 | NUR ---
Problems reprioritized. Patient report given, questions answered & plan of care reviewed with RN Art.
[2018-09-06 06:46] LABS: ALBUMIN 1.4 G/DL (3.4-5.0); ANION GAP 10 (8-16); BLOOD UREA NITROGEN 48 MG/DL (7-18); BUN/CREATININE RATIO 10.3 (5.4-32.0); CALCIUM 7.7 MG/DL (8.5-10.1); CHLORIDE 108 MMOL/L (99-107); CREATININE 4.64 MG/DL (0.60-1.10); GLUCOSE 102 MG/DL (70-104); POTASSIUM 4.2 MMOL/L (3.5-5.1); SODIUM 136 MMOL/L (135-145); TOTAL CARBON DIOXIDE 18.2 MMOL/L (24-32); eGFR 16 ML/MIN
[2018-09-06] MEDS: lactobacillus rhamnosus 10,000 MMU CELLS/CAPSULE PO SCH ×2 (07:24→20:18)
[2018-09-06] MEDS: atorvastatin 20mg tablet PO SCH (07:24)
[2018-09-06] MEDS: carVEDilol 12.5mg tablet PO SCH ×2 (07:25→20:17)
[2018-09-06] MEDS: DOBUTamine-DoBUTrex 500mg/D5W 250 ML IV SCH (12:18)
[2018-09-06] MEDS ORDERED: epoetin 20,000 units/ml inj SQ ONE (14:00)
--- NOTE | 2018-09-06 14:36 | NUR ---
Requested procrit from pharmacy
--- NOTE | 2018-09-06 18:10 | NUR ---
Patient in room PCU 3022. I have received report from Art RN and had the opportunity to ask questions and assume patient care.
--- NOTE | 2018-09-06 18:36 | NUR ---
Problems reprioritized. Patient report given, questions answered & plan of care reviewed with PATRICIA mckeon.
[2018-09-06] MEDS: sodium bicarbonate 650mg tablet PO SCH (20:18)
[2018-09-06] MEDS: insulin glargine (Lantus) pen - multi-dose SQ SCH (21:00)
[2018-09-07] VITALS (7 sets, daily range): BP systolic 126–165; BP diastolic 60–78
--- NOTE | 2018-09-07 06:10 | NUR ---
Problems reprioritized. Patient report given, questions answered & plan of care reviewed with Reji GOMEZ.
--- NOTE | 2018-09-07 07:01 | NUR ---
Patient in room PCU 3022. I have received report from Lakia GOMEZ and had the opportunity to ask questions and assume patient care.
[2018-09-07] MEDS: carVEDilol 12.5mg tablet PO SCH ×2 (08:11→20:07)
[2018-09-07] MEDS: sodium bicarbonate 650mg tablet PO SCH ×2 (08:11→20:08)
[2018-09-07] MEDS: lactobacillus rhamnosus 10,000 MMU CELLS/CAPSULE PO SCH ×2 (08:11→20:07)
[2018-09-07] MEDS: atorvastatin 20mg tablet PO SCH (08:11)
[2018-09-07] MEDS: insulin Lispro (HumaLOG) vial - multi-dose SQ SCH ×2 (08:27→19:19)
[2018-09-07 10:41] LABS: BASOPHILS # (AUTO) 0.1 X10'3 (0-0.2); BASOPHILS % (AUTO) 0.5 % (0-1); EOSINOPHILS # (AUTO) 0.1 X10'3 (0-0.9); EOSINOPHILS % (AUTO) 0.8 % (0-6); HEMATOCRIT 24.9 % (42.0-52.0); HEMOGLOBIN 8.3 g/dl (14.0-17.9); LYMPHOCYTES % (AUTO) 8.6 % (21-51); MEAN CORPUSCULAR HEMOGLOBIN 29.3 PG (27.0-31.0); MEAN CORPUSCULAR HGB CONC 33.3 g/dL (33.0-36.5); MEAN CORPUSCULAR VOLUME 87.8 FL (78-98); MEAN PLATELET VOLUME 7.6 FL (7.4-10.4); MONOCYTES # (AUTO) 0.9 X10'3 (0-0.9); MONOCYTES % (AUTO) 7.4 % (2-12); NEUTROPHILS % (AUTO) 82.7 % (42-75); PLATELET COUNT 379 X10'3 (140-440); RED BLOOD COUNT 2.83 X10'6 (4.70-6.10); RED CELL DISTRIBUTION WIDTH 17.3 % (11.5-14.5); WHITE BLOOD COUNT 12.1 X10'3 (4.5-11.0)
[2018-09-07] MEDS: DOBUTamine-DoBUTrex 500mg/D5W 250 ML IV SCH (10:45)
[2018-09-07 10:55] LABS: ALANINE AMINOTRANSFERASE 18 U/L (12-78); ALBUMIN 1.5 G/DL (3.4-5.0); ALBUMIN/GLOBULIN RATIO 0.3 (1.1-1.5); ALKALINE PHOSPHATASE 90 IU/L (46-116); ANION GAP 11 (8-16); ASPARTATE AMINO TRANSFERASE 19 U/L (10-37); BILIRUBIN,TOTAL 0.4 MG/DL (0.1-1.0); BLOOD UREA NITROGEN 42 MG/DL (7-18); BUN/CREATININE RATIO 9.8 (5.4-32.0); CHLORIDE 107 MMOL/L (99-107); GLUCOSE 96 MG/DL (70-104); MAGNESIUM 1.8 MG/DL (1.5-2.4); PHOSPHORUS 4.4 MG/DL (2.3-4.5); SODIUM 136 MMOL/L (135-145); TOTAL CARBON DIOXIDE 18.1 MMOL/L (24-32); TOTAL PROTEIN 7.2 G/DL (6.4-8.2); eGFR 17 ML/MIN
[2018-09-07] MEDS: dextrose ORAL solution 15 GM/59 ML bottle PO PRN (12:24)
--- NOTE | 2018-09-07 14:58 | NUR ---
reassessment: Pt PO 100% meals meeting needs. LBM 09/06. Will continue to monitor. Recommendations: 1) continue CHO controlled diet as medically indicated 2) Monitor need for ONS 3) Wt per rx Addendum: 09/07/18 at [address] Amended: Links added.
--- NOTE | 2018-09-07 18:20 | NUR ---
Problems reprioritized. Patient report given, questions answered & plan of care reviewed with PATRICIA Peoples.
[2018-09-07] MEDS: insulin glargine (Lantus) pen - multi-dose SQ SCH (22:12)
[2018-09-08 02:00] VITALS: BP 146/81
[2018-09-08] MEDS: carVEDilol 12.5mg tablet PO SCH ×2 (08:08→20:25)
[2018-09-08] MEDS: lactobacillus rhamnosus 10,000 MMU CELLS/CAPSULE PO SCH ×2 (08:08→20:25)
[2018-09-08] MEDS: atorvastatin 20mg tablet PO SCH (08:08)
[2018-09-08] MEDS: sodium bicarbonate 650mg tablet PO SCH ×2 (08:08→20:25)
[2018-09-08] MEDS: insulin Lispro (HumaLOG) vial - multi-dose SQ SCH ×2 (08:18→18:57)
[2018-09-08 09:20] LABS: BASOPHILS # (AUTO) 0.1 X10'3 (0-0.2); BASOPHILS % (AUTO) 0.5 % (0-1); EOSINOPHILS # (AUTO) 0.1 X10'3 (0-0.9); EOSINOPHILS % (AUTO) 0.7 % (0-6); HEMATOCRIT 25.3 % (42.0-52.0); HEMOGLOBIN 8.4 g/dl (14.0-17.9); LYMPHOCYTES # (AUTO) 1.3 X10'3 (1.1-4.8); LYMPHOCYTES % (AUTO) 12.7 % (21-51); MEAN CORPUSCULAR HEMOGLOBIN 28.8 PG (27.0-31.0); MEAN CORPUSCULAR HGB CONC 33.1 g/dL (33.0-36.5); MEAN PLATELET VOLUME 7.2 FL (7.4-10.4); MONOCYTES % (AUTO) 9.4 % (2-12); NEUTROPHILS # (AUTO) 7.8 X10'3 (1.8-7.7); NEUTROPHILS % (AUTO) 76.7 % (42-75); PLATELET COUNT 426 X10'3 (140-440); RED CELL DISTRIBUTION WIDTH 17.3 % (11.5-14.5); WHITE BLOOD COUNT 10.2 X10'3 (4.5-11.0)
[2018-09-08 09:28] LABS: ALANINE AMINOTRANSFERASE 22 U/L (12-78); ALBUMIN 1.7 G/DL (3.4-5.0); ALBUMIN/GLOBULIN RATIO 0.3 (1.1-1.5); ALKALINE PHOSPHATASE 107 IU/L (46-116); ANION GAP 10 (8-16); ASPARTATE AMINO TRANSFERASE 21 U/L (10-37); BILIRUBIN,TOTAL 0.4 MG/DL (0.1-1.0); BLOOD UREA NITROGEN 44 MG/DL (7-18); BUN/CREATININE RATIO 10.4 (5.4-32.0); CHLORIDE 107 MMOL/L (99-107); CREATININE 4.23 MG/DL (0.60-1.10); GLUCOSE 137 MG/DL (70-104); MAGNESIUM 1.8 MG/DL (1.5-2.4); POTASSIUM 4.1 MMOL/L (3.5-5.1); SODIUM 136 MMOL/L (135-145); TOTAL CARBON DIOXIDE 18.9 MMOL/L (24-32); TOTAL PROTEIN 7.9 G/DL (6.4-8.2); eGFR 18 ML/MIN
[2018-09-08 11:00] VITALS: BP 176/83
[2018-09-08 15:00] VITALS: BP 155/83
--- NOTE | 2018-09-08 17:57 | NUR ---
Orientee documentation: I have reviewed and agree with interventions, assessments performed and documented by PATRICIA Martínez. [place] Medication Administration: For this medication-pass time frame, medication were reviewed, dispensed, administered and documented per hospital policy by PATRICIA Martínez.
[2018-09-08 18:00] VITALS: BP 160/81
--- NOTE | 2018-09-08 18:30 | NUR ---
Problems reprioritized. Patient report given, questions answered & plan of care reviewed with Dinora Mercado .
--- NOTE | 2018-09-08 18:30 | NUR ---
Patient in room PCU 3022. I have received report from pablito Bills and had the opportunity to ask questions and assume patient care.
[2018-09-08] MEDS: insulin glargine (Lantus) pen - multi-dose SQ SCH (20:56)
[2018-09-08 22:00] VITALS: BP 95/71
[2018-09-09] VITALS (7 sets, daily range): BP systolic 158–193; BP diastolic 64–93
[2018-09-09 05:36] LABS: VANCOMYCIN,RANDOM 5.7 UG/ML
--- NOTE | 2018-09-09 06:38 | NUR ---
Problems reprioritized. Patient report given, questions answered & plan of care reviewed with PATRICIA RADFORD.
--- NOTE | 2018-09-09 06:59 | NUR ---
Patient in room PCU 3022. I have received report from PATRICIA NAIR and had the opportunity to ask questions and assume patient care.
[2018-09-09 07:38] LABS: BASOPHILS # (AUTO) 0.1 X10'3 (0-0.2); BASOPHILS % (AUTO) 0.7 % (0-1); EOSINOPHILS # (AUTO) 0.1 X10'3 (0-0.9); EOSINOPHILS % (AUTO) 0.9 % (0-6); HEMOGLOBIN 7.5 g/dl (14.0-17.9); LYMPHOCYTES # (AUTO) 1.3 X10'3 (1.1-4.8); LYMPHOCYTES % (AUTO) 14.6 % (21-51); MEAN CORPUSCULAR HEMOGLOBIN 30.2 PG (27.0-31.0); MEAN CORPUSCULAR HGB CONC 34.5 g/dL (33.0-36.5); MEAN CORPUSCULAR VOLUME 87.7 FL (78-98); MEAN PLATELET VOLUME 7.5 FL (7.4-10.4); MONOCYTES # (AUTO) 0.9 X10'3 (0-0.9); MONOCYTES % (AUTO) 9.7 % (2-12); NEUTROPHILS # (AUTO) 6.7 X10'3 (1.8-7.7); NEUTROPHILS % (AUTO) 74.1 % (42-75); PLATELET COUNT 368 X10'3 (140-440); RED BLOOD COUNT 2.48 X10'6 (4.70-6.10)
[2018-09-09 07:42] LABS: HEMATOCRIT 21.7 % (42.0-52.0)
[2018-09-09 07:50] LABS: ALANINE AMINOTRANSFERASE 19 U/L (12-78); ALBUMIN 1.6 G/DL (3.4-5.0); ALBUMIN/GLOBULIN RATIO 0.3 (1.1-1.5); ALKALINE PHOSPHATASE 102 IU/L (46-116); ANION GAP 11 (8-16); ASPARTATE AMINO TRANSFERASE 22 U/L (10-37); BILIRUBIN,TOTAL 0.4 MG/DL (0.1-1.0); BLOOD UREA NITROGEN 45 MG/DL (7-18); BUN/CREATININE RATIO 10.9 (5.4-32.0); CHLORIDE 108 MMOL/L (99-107); CREATININE 4.12 MG/DL (0.60-1.10); GLUCOSE 72 MG/DL (70-104); MAGNESIUM 1.8 MG/DL (1.5-2.4); PHOSPHORUS 4.8 MG/DL (2.3-4.5); POTASSIUM 4.2 MMOL/L (3.5-5.1); SODIUM 138 MMOL/L (135-145); TOTAL CARBON DIOXIDE 19.1 MMOL/L (24-32); TOTAL PROTEIN 7.3 G/DL (6.4-8.2); eGFR 18 ML/MIN
--- NOTE | 2018-09-09 07:51 | NUR ---
PAGER ID: [phone] MESSAGE: DR. REYNOLDS, 3022A/, HCT 21.7. MALINA [id number]. TY
[2018-09-09] MEDS: carVEDilol 12.5mg tablet PO SCH ×2 (08:11→18:53)
[2018-09-09] MEDS: atorvastatin 20mg tablet PO SCH (08:12)
[2018-09-09] MEDS: lactobacillus rhamnosus 10,000 MMU CELLS/CAPSULE PO SCH ×2 (08:12→18:53)
[2018-09-09] MEDS: sodium bicarbonate 650mg tablet PO SCH ×2 (08:13→18:53)
--- NOTE | 2018-09-09 18:35 | NUR ---
Problems reprioritized. Patient report given, questions answered & plan of care reviewed with PATRICIA HONEYCUTT.
--- NOTE | 2018-09-09 18:41 | NUR ---
Patient in room PCU 3022. I have received report from Jaron GOMEZ and had the opportunity to ask questions and assume patient care.
[2018-09-09] MEDS: insulin glargine (Lantus) pen - multi-dose SQ SCH (21:00)
[2018-09-10 02:00] VITALS: BP 109/62
[2018-09-10 06:00] VITALS: BP 176/94
[2018-09-10 06:15] LABS: BASOPHILS # (AUTO) 0.1 X10'3 (0-0.2); BASOPHILS % (AUTO) 0.7 % (0-1); EOSINOPHILS # (AUTO) 0.1 X10'3 (0-0.9); EOSINOPHILS % (AUTO) 1.2 % (0-6); HEMATOCRIT 24.3 % (42.0-52.0); HEMOGLOBIN 8.1 g/dl (14.0-17.9); LYMPHOCYTES # (AUTO) 1.1 X10'3 (1.1-4.8); LYMPHOCYTES % (AUTO) 14.2 % (21-51); MEAN CORPUSCULAR HEMOGLOBIN 28.9 PG (27.0-31.0); MEAN CORPUSCULAR HGB CONC 33.3 g/dL (33.0-36.5); MEAN CORPUSCULAR VOLUME 86.8 FL (78-98); MEAN PLATELET VOLUME 7.4 FL (7.4-10.4); MONOCYTES # (AUTO) 0.8 X10'3 (0-0.9); MONOCYTES % (AUTO) 10.2 % (2-12); NEUTROPHILS # (AUTO) 5.9 X10'3 (1.8-7.7); NEUTROPHILS % (AUTO) 73.7 % (42-75); PLATELET COUNT 451 X10'3 (140-440); RED CELL DISTRIBUTION WIDTH 17.2 % (11.5-14.5)
--- NOTE | 2018-09-10 06:15 | NUR ---
REPORT GIVEN TO ERIK GOMEZ
[2018-09-10 06:38] LABS: ALANINE AMINOTRANSFERASE 22 U/L (12-78); ALBUMIN 1.7 G/DL (3.4-5.0); ALBUMIN/GLOBULIN RATIO 0.3 (1.1-1.5); ALKALINE PHOSPHATASE 111 IU/L (46-116); ANION GAP 11 (8-16); ASPARTATE AMINO TRANSFERASE 23 U/L (10-37); BILIRUBIN,TOTAL 0.3 MG/DL (0.1-1.0); BLOOD UREA NITROGEN 46 MG/DL (7-18); BUN/CREATININE RATIO 12.2 (5.4-32.0); CALCIUM 8.4 MG/DL (8.5-10.1); CHLORIDE 108 MMOL/L (99-107); CREATININE 3.77 MG/DL (0.60-1.10); GLUCOSE 111 MG/DL (70-104); MAGNESIUM 1.9 MG/DL (1.5-2.4); PHOSPHORUS 4.6 MG/DL (2.3-4.5); POTASSIUM 4.3 MMOL/L (3.5-5.1); SODIUM 139 MMOL/L (135-145); TOTAL CARBON DIOXIDE 20.5 MMOL/L (24-32); TOTAL PROTEIN 7.6 G/DL (6.4-8.2); VANCOMYCIN,RANDOM 4.1 UG/ML; eGFR 20 ML/MIN
[2018-09-10] MEDS: atorvastatin 20mg tablet PO SCH (07:51)
[2018-09-10] MEDS: lactobacillus rhamnosus 10,000 MMU CELLS/CAPSULE PO SCH (07:51)
[2018-09-10] MEDS: carVEDilol 12.5mg tablet PO SCH (07:51)
[2018-09-10] MEDS: sodium bicarbonate 650mg tablet PO SCH (07:52)
[2018-09-10] MEDS ORDERED: INSU100V11 SQ (08:45)
[2018-09-10 09:30] VITALS: BP 174/86
[2018-09-10] MEDS: insulin Lispro (HumaLOG) vial - multi-dose SQ SCH (10:06)
--- NOTE | 2018-09-10 10:11 | NUR ---
PAGER ID: [phone] MESSAGE: King Griffin. BP 174/86. eugene [id number]
[2018-09-10 11:00] VITALS: BP 163/81
[2018-09-10 11:52] VITALS: BP 163/81
--- NOTE | 2018-09-10 11:56 | NUR ---
PAGER ID: [phone] MESSAGE: Room 3022 , BP 162/63 [id number] MD Black called back 1156, no further medication needed, okay to proceed with discharge
[2018-09-10] MEDS: dextrose ORAL solution 15 GM/59 ML bottle PO PRN (12:17)
[2018-09-10 14:51] LABS: OCCULT BLOOD STOOL NEGATIVE (Neg)
[2018-09-10 15:00] VITALS: BP 154/73
--- NOTE | 2018-09-10 15:22 | NUR ---
PAGER ID: [phone] MESSAGE: Room 3022 Marco. occult stool negative; are we pending echo results for discharge? eugene [id number]
--- NOTE | 2018-09-10 15:25 | NUR ---
Lisa rehabilitation caseworker stated Dr Black stated life vest not needed
--- NOTE | 2018-09-10 18:24 | NUR ---
pt DCd, stable, IV oput, Tele off, patient brought prescriptions and glucose monitor and supplies by amauri, taken with patient
== END 2018-09-10 18:32 | disposition home or self-care (01) | DRG 305 ==
LOC: ER 11:27 → SUR 3N 13:27 → CMPBEDREQ 21:43 → PCU 3S 09-03 16:55
PROVIDERS: ADMIT Internal Medicine; ATTEND Internal Medicine
PROC: 30233N1 Transfusion of Nonautologous Red Blood Cells into Peripheral Vein, Percutaneous Approach (ICD-10-PCS; 2018-09-02)
PROC: 0Y6H0Z3 Detachment at Right Lower Leg, Low, Open Approach (ICD-10-PCS; principal; 2018-09-02 16:36)
PROC: 30233N1 Transfusion of Nonautologous Red Blood Cells into Peripheral Vein, Percutaneous Approach (ICD-10-PCS; 2018-09-05)
DX: E11.69 Type 2 diabetes mellitus with other specified complication (principal); M86.171 Other acute osteomyelitis, right ankle and foot; N17.9 Acute kidney failure, unspecified; E11.21 Type 2 diabetes mellitus with diabetic nephropathy; E87.2 Acidosis; N18.4 Chronic kidney disease, stage 4 (severe); E11.65 Type 2 diabetes mellitus with hyperglycemia; E87.1 Hypo-osmolality and hyponatremia; E11.42 Type 2 diabetes mellitus with diabetic polyneuropathy; E11.22 Type 2 diabetes mellitus with diabetic chronic kidney disease; E11.621 Type 2 diabetes mellitus with foot ulcer; I50.22 Chronic systolic (congestive) heart failure; D63.8 Anemia in other chronic diseases classified elsewhere; Z60.2 Problems related to living alone; E78.5 Hyperlipidemia, unspecified; I13.0 Hypertensive heart and chronic kidney disease with heart failure and stage 1 through stage 4 chronic kidney disease, or unspecified chronic kidney disease; L03.119 Cellulitis of unspecified part of limb; L97.529 Non-pressure chronic ulcer of other part of left foot with unspecified severity; L97.519 Non-pressure chronic ulcer of other part of right foot with unspecified severity; Z59.0 Homelessness; Z74.01 Bed confinement status; Z90.49 Acquired absence of other specified parts of digestive tract; Z91.14 Patient's other noncompliance with medication regimen; Z89.012 Acquired absence of left thumb; Z79.899 Other long term (current) drug therapy; Z89.422 Acquired absence of other left toe(s)
CPT/HCPCS: 36415; 71045; 73630; 76775; 80048; 80053; 80202; 81001; 82272; 82948; 83036; 83605; 83735; 84100; 84145; 85025; 85027; 85610; 86885; 86900; 86901; 86920; 87040; 87070; 87077; 87186; 90715; 93005; 93308; 97110; 97116; 97162; 97530; 99285; A6222; A6446; A6449; A7000; G0378; J0885; J1250; J1815; J2001; J2250; J2270; J2543; J2704; J3010; J3370; J7030; J7120; P9016

== ENCOUNTER 2018-09-19 09:20 | Day surgery (SDC) | payer MEDICAID ==
[~2018-09-19 09:20] MED LIST changes: -FURO-149 PO; -GLIP2.5T3 PO; +INSU100V11 SQ; -LOSA50TA64 PO
--- NOTE | 2018-09-19 13:45 | NUR ---
Patient arrived safely into [facility] via wheelchair. Patient admitted to outpatient wound care clinic for return physician visit. Dressings removed and wound cleansed. Patient assessed and medications and medical history reviewed. Dr. Rousseau at bedside accompanied by RN. Wound assessed, time out performed by MD/RN. Wound debrided as detailed in the physician progress/procedure note. Plan of care discussed with patient. Dressings placed per MD orders. Patient instructed on the signs and symptoms of infection and to call the Wound Center if any occur or to go to the ED if we are closed: Increased pain in wound Increase in drainage from the wound Redness in the skin surrounding the wound Bleeding from the wound Temperature of 101 or greater Patient instructed that elevated blood sugars delay healing of the wound and can cause further complications including but not limited to amputation of toes or feet. Patient instructed that the weight of their body puts a large amount of pressure on their wounds. This pressure keeps the new tissue from growing and inhibits new blood vessels from forming. Explained that, if they continue to bear weight on a body part that has a wound, the time it takes to heal the wound increases, the wound may get worse or the wound may not heal at all. Patient verbalized understanding of all discharge instructions and plan of care. Patient left in stable condition with no sign or symptom of distress at time of discharge. Addendum: 09/19/18 at 1350 by Marie Ch RN Amended: Links added.
== END 2018-09-19 11:36 | disposition home or self-care (01) ==
LOC: WOUND CARE 09:20
PROVIDERS: ATTEND Surgery
DX: T87.89 Other complications of amputation stump (principal); E11.621 Type 2 diabetes mellitus with foot ulcer; L97.522 Non-pressure chronic ulcer of other part of left foot with fat layer exposed; L97.514 Non-pressure chronic ulcer of other part of right foot with necrosis of bone; E11.22 Type 2 diabetes mellitus with diabetic chronic kidney disease; I13.0 Hypertensive heart and chronic kidney disease with heart failure and stage 1 through stage 4 chronic kidney disease, or unspecified chronic kidney disease; I50.9 Heart failure, unspecified; N18.3 Chronic kidney disease, stage 3 (moderate); L84 Corns and callosities; E78.5 Hyperlipidemia, unspecified; H54.8 Legal blindness, as defined in USA; E11.69 Type 2 diabetes mellitus with other specified complication; M86.8X7 Other osteomyelitis, ankle and foot; E11.42 Type 2 diabetes mellitus with diabetic polyneuropathy; E11.65 Type 2 diabetes mellitus with hyperglycemia; E11.319 Type 2 diabetes mellitus with unspecified diabetic retinopathy without macular edema; I87.2 Venous insufficiency (chronic) (peripheral); M86.679 Other chronic osteomyelitis, unspecified ankle and foot; F19.10 Other psychoactive substance abuse, uncomplicated; Z89.012 Acquired absence of left thumb; Z89.9 Acquired absence of limb, unspecified; Z90.49 Acquired absence of other specified parts of digestive tract; Z89.021 Acquired absence of right finger(s); Z68.27 Body mass index [BMI] 27.0-27.9, adult; Z79.899 Other long term (current) drug therapy; Z86.718 Personal history of other venous thrombosis and embolism; Y83.5 Amputation of limb(s) as the cause of abnormal reaction of the patient, or of later complication, without mention of misadventure at the time of the procedure
CPT/HCPCS: 36416; 82948; 97597; A6209; A6222; A6021; A6446

== ENCOUNTER 2018-09-26 09:30 | Day surgery (SDC) | payer MEDICAID ==
--- NOTE | 2018-09-26 11:00 | NUR ---
Patient arrived via wheelchair from [facility] and was admitted to outpatient wound care for physician visit with Mike Rousseau MD. Dressing removed, wound cleansed. Patient assessed for changes in conditions, medications and medical history. 1005 - blood glucose 143. Patient instructed that elevated blood sugars delay healing of the wound and can cause further complications including but not limited to amputation of toes or feet. 1020 - Dr. Rousseau at bedside accompanied by RN. Wound assessed, time out performed by MD/RN. Wound debrided as detailed in the physician progress/procedure note. Plan of care discussed with patient. Dressings placed per MD orders. Patient instructed on the signs and symptoms of infection and to call the Wound Center if any occur or to go to the ED if we are closed: Increased pain in wound Increase in drainage from the wound Redness in the skin surrounding the wound Bleeding from the wound Temperature of 101 or greater Patient instructed that the weight of their body puts a large amount of pressure on their wounds. This pressure keeps the new tissue from growing and inhibits new blood vessels from forming. Explained that, if they continue to bear weight on a body part that has a wound, the time it takes to heal the wound increases, the wound may get worse or the wound may not heal at all. Patient verbalized understanding of all discharge instructions and plan of care and exited via wheelchair independently out to [facility] in stable condition with no sign or symptom of distress at time of discharge.
== END 2018-09-26 11:23 | disposition home or self-care (01) ==
LOC: WOUND CARE 09:30
PROVIDERS: ATTEND Surgery
DX: T87.89 Other complications of amputation stump (principal); E11.621 Type 2 diabetes mellitus with foot ulcer; L97.522 Non-pressure chronic ulcer of other part of left foot with fat layer exposed; L97.511 Non-pressure chronic ulcer of other part of right foot limited to breakdown of skin; E11.22 Type 2 diabetes mellitus with diabetic chronic kidney disease; I13.0 Hypertensive heart and chronic kidney disease with heart failure and stage 1 through stage 4 chronic kidney disease, or unspecified chronic kidney disease; I50.9 Heart failure, unspecified; N18.3 Chronic kidney disease, stage 3 (moderate); L84 Corns and callosities; E78.5 Hyperlipidemia, unspecified; H54.8 Legal blindness, as defined in USA; E11.69 Type 2 diabetes mellitus with other specified complication; M86.8X7 Other osteomyelitis, ankle and foot; E11.42 Type 2 diabetes mellitus with diabetic polyneuropathy; E11.65 Type 2 diabetes mellitus with hyperglycemia; E11.319 Type 2 diabetes mellitus with unspecified diabetic retinopathy without macular edema; I87.2 Venous insufficiency (chronic) (peripheral); M86.679 Other chronic osteomyelitis, unspecified ankle and foot; F19.10 Other psychoactive substance abuse, uncomplicated; Z89.012 Acquired absence of left thumb; Z89.9 Acquired absence of limb, unspecified; Z90.49 Acquired absence of other specified parts of digestive tract; Z89.021 Acquired absence of right finger(s); Z68.27 Body mass index [BMI] 27.0-27.9, adult; Z79.899 Other long term (current) drug therapy; Z86.718 Personal history of other venous thrombosis and embolism; Y83.5 Amputation of limb(s) as the cause of abnormal reaction of the patient, or of later complication, without mention of misadventure at the time of the procedure
CPT/HCPCS: 11042; 36416; 82948; A6209; A6021; A6206; A6446

== ENCOUNTER 2018-10-03 09:14 | Day surgery (SDC) | payer MEDICAID ==
--- NOTE | 2018-10-03 14:28 | NUR ---
Patient arrived safely into [facility] via wheelchair. Patient was admitted to outpatient wound care for physician visit with Mike Rousseau MD. Dressings removed and wounds cleansed. Patient assessed for changes in conditions, medications and medical history. Dr. Rousseau at bedside accompanied by RN. Wound assessed, time out performed by MD/RN. Wound debrided as detailed in the physician progress/procedure note. Plan of care discussed with patient. Dressings placed per MD orders. Patient instructed on the signs and symptoms of infection and to call the Wound Center if any occur or to go to the ED if we are closed: Increased pain in wound Increase in drainage from the wound Redness in the skin surrounding the wound Bleeding from the wound Temperature of 101 or greater Patient instructed that elevated blood sugars delay healing of the wound and can cause further complications including but not limited to amputation of toes or feet. Patient instructed that the weight of their body puts a large amount of pressure on their wounds. This pressure keeps the new tissue from growing and inhibits new blood vessels from forming. Explained that, if they continue to bear weight on a body part that has a wound, the time it takes to heal the wound increases, the wound may get worse or the wound may not heal at all. Patient verbalized understanding of all discharge instructions and plan of care. Patient left in stable condition with no sign or symptom of distress at time of discharge. Addendum: 10/03/18 at 1433 by Marie Ch RN Amended: Links added.
== END 2018-10-03 10:48 | disposition home or self-care (01) ==
LOC: WOUND CARE 09:14
PROVIDERS: ATTEND Surgery
DX: T87.89 Other complications of amputation stump (principal); E11.621 Type 2 diabetes mellitus with foot ulcer; L97.522 Non-pressure chronic ulcer of other part of left foot with fat layer exposed; L97.511 Non-pressure chronic ulcer of other part of right foot limited to breakdown of skin; E11.22 Type 2 diabetes mellitus with diabetic chronic kidney disease; I13.2 Hypertensive heart and chronic kidney disease with heart failure and with stage 5 chronic kidney disease, or end stage renal disease; I50.9 Heart failure, unspecified; N18.6 End stage renal disease; L84 Corns and callosities; E78.5 Hyperlipidemia, unspecified; H54.8 Legal blindness, as defined in USA; E11.69 Type 2 diabetes mellitus with other specified complication; M86.8X7 Other osteomyelitis, ankle and foot; E11.42 Type 2 diabetes mellitus with diabetic polyneuropathy; E11.65 Type 2 diabetes mellitus with hyperglycemia; E11.319 Type 2 diabetes mellitus with unspecified diabetic retinopathy without macular edema; I87.2 Venous insufficiency (chronic) (peripheral); M86.679 Other chronic osteomyelitis, unspecified ankle and foot; F19.10 Other psychoactive substance abuse, uncomplicated; Z89.012 Acquired absence of left thumb; Z89.9 Acquired absence of limb, unspecified; Z90.49 Acquired absence of other specified parts of digestive tract; Z89.021 Acquired absence of right finger(s); Z68.27 Body mass index [BMI] 27.0-27.9, adult; Z79.899 Other long term (current) drug therapy; Z86.718 Personal history of other venous thrombosis and embolism; Z79.4 Long term (current) use of insulin; Y83.5 Amputation of limb(s) as the cause of abnormal reaction of the patient, or of later complication, without mention of misadventure at the time of the procedure
CPT/HCPCS: 11042; 36416; 82948; A6209; A6223; A6021; A6206; A6446

== ENCOUNTER 2018-10-10 09:00 | Day surgery (SDC) | payer MEDICAID ==
--- NOTE | 2018-10-10 15:10 | NUR ---
0900 Patient wheeled himself safely into [facility] via his own w/c. Patient admitted to outpatient wound care clinic for follow-up visit with physician. Patient placed in isolation per isolation protocol. Dressing removed, wound cleansed. Patient assessed for changes in conditions, medications and medical history. Patient showed no s/s of distress at time of assessment. 0925 BS 90, Patient instructed that elevated blood sugars delay healing of the wound and can cause further complications including but not limited to amputation of toes or feet. 1005 at bedside accompanied by RN. Wounds assessed, time out performed and debridement done today as detailed in the physician progress/procedure note. Plan of care discussed with patient. Dressings placed per MD orders. Patient instructed on the signs and symptoms of infection and to call the Wound Center if any occur or to go to the ED if we are closed: Increased pain in wound Increase in drainage from the wound Redness in the skin surrounding the wound Bleeding from the wound Temperature of 101 or greater Patient instructed that the weight of their body puts a large amount of pressure on their wounds. This pressure keeps the new tissue from growing and inhibits new blood vessels from forming. Explained that, if they continue to bear weight on a body part that has a wound, the time it takes to heal the wound increases, the wound may get worse or the wound may not heal at all. Patient verbalized understanding of all discharge instructions and plan of care. Patient ambulated independently out to [facility] and is in stable condition with no sign or symptom of distress at time of discharge. Addendum: 10/10/18 at 1512 by Sury Aly RN Pt wheeled himself out of the clinic in his w/c.
== END 2018-10-10 10:50 | disposition home or self-care (01) ==
LOC: WOUND CARE 09:00
PROVIDERS: ATTEND Surgery
DX: T87.89 Other complications of amputation stump (principal); E11.621 Type 2 diabetes mellitus with foot ulcer; L97.522 Non-pressure chronic ulcer of other part of left foot with fat layer exposed; L97.511 Non-pressure chronic ulcer of other part of right foot limited to breakdown of skin; E11.22 Type 2 diabetes mellitus with diabetic chronic kidney disease; I13.2 Hypertensive heart and chronic kidney disease with heart failure and with stage 5 chronic kidney disease, or end stage renal disease; I50.9 Heart failure, unspecified; N18.6 End stage renal disease; L84 Corns and callosities; E78.5 Hyperlipidemia, unspecified; H54.8 Legal blindness, as defined in USA; E11.69 Type 2 diabetes mellitus with other specified complication; M86.8X7 Other osteomyelitis, ankle and foot; E11.42 Type 2 diabetes mellitus with diabetic polyneuropathy; E11.65 Type 2 diabetes mellitus with hyperglycemia; E11.319 Type 2 diabetes mellitus with unspecified diabetic retinopathy without macular edema; I87.2 Venous insufficiency (chronic) (peripheral); M86.679 Other chronic osteomyelitis, unspecified ankle and foot; F19.10 Other psychoactive substance abuse, uncomplicated; Z89.012 Acquired absence of left thumb; Z89.9 Acquired absence of limb, unspecified; Z90.49 Acquired absence of other specified parts of digestive tract; Z89.021 Acquired absence of right finger(s); Z68.27 Body mass index [BMI] 27.0-27.9, adult; Z79.899 Other long term (current) drug therapy; Z86.718 Personal history of other venous thrombosis and embolism; Z79.4 Long term (current) use of insulin; Y83.5 Amputation of limb(s) as the cause of abnormal reaction of the patient, or of later complication, without mention of misadventure at the time of the procedure
CPT/HCPCS: 36416; 82948; A6021; A6446

== ENCOUNTER 2018-10-17 09:22 | Outpatient (CLI) | payer MEDICAID ==
--- NOTE | 2018-10-17 11:00 | NUR ---
Patient arrived via wheelchair from [facility] and was admitted to outpatient wound care for nursing visit under the direct supervision of Ruslan Augustin MD. Dressing removed, wound cleansed and dressings applied per order. Patient assessed for changes in conditions, medications and medical history. Patient's 1016 - blood glucose 118. Patient instructed that elevated blood sugars delay healing of the wound and can cause further complications including but not limited to amputation of toes or feet. Patient instructed on the signs and symptoms of infection and to call the Wound Center if any occur or to go to the ED if we are closed: Increased pain in wound Increase in drainage from the wound Redness in the skin surrounding the wound Bleeding from the wound Temperature of 101 or greater Patient instructed that the weight of their body puts a large amount of pressure on their wounds. This pressure keeps the new tissue from growing and inhibits new blood vessels from forming. Explained that, if they continue to bear weight on a body part that has a wound, the time it takes to heal the wound increases, the wound may get worse or the wound may not heal at all. Patient verbalized understanding of all discharge instructions and plan of care and exited via wheelchair independently out to [facility] in stable condition with no sign or symptom of distress at time of discharge. Addendum: 10/17/18 at 1403 by Tiarra Juarez RN New wound to left dorsal foot noted, charger operator helper notified of finding. Per charger operator helper instructions, patient is to return to the clinic Saturday to be seen by MD and is to go to ED if there is pain or signs of infection before then. Patient is urged to return to clinic [facility] and the importance of doing so but states he has some conflicting appointments; patient strongly advised to prioritize his wound care visit first on Saturday.
== END 2018-10-17 11:14 | disposition home or self-care (01) ==
LOC: WOUND CARE 09:22 → EDSTATUS 09:30 → WOUND CARE 11:14
PROVIDERS: ATTEND Surgery
DX: T87.89 Other complications of amputation stump (principal); E11.621 Type 2 diabetes mellitus with foot ulcer; L97.522 Non-pressure chronic ulcer of other part of left foot with fat layer exposed; L97.511 Non-pressure chronic ulcer of other part of right foot limited to breakdown of skin; E11.22 Type 2 diabetes mellitus with diabetic chronic kidney disease; I13.2 Hypertensive heart and chronic kidney disease with heart failure and with stage 5 chronic kidney disease, or end stage renal disease; I50.9 Heart failure, unspecified; N18.6 End stage renal disease; L84 Corns and callosities; E78.5 Hyperlipidemia, unspecified; H54.8 Legal blindness, as defined in USA; E11.69 Type 2 diabetes mellitus with other specified complication; M86.8X7 Other osteomyelitis, ankle and foot; E11.42 Type 2 diabetes mellitus with diabetic polyneuropathy; E11.65 Type 2 diabetes mellitus with hyperglycemia; E11.319 Type 2 diabetes mellitus with unspecified diabetic retinopathy without macular edema; I87.2 Venous insufficiency (chronic) (peripheral); M86.679 Other chronic osteomyelitis, unspecified ankle and foot; F19.10 Other psychoactive substance abuse, uncomplicated; Z89.012 Acquired absence of left thumb; Z89.9 Acquired absence of limb, unspecified; Z90.49 Acquired absence of other specified parts of digestive tract; Z89.021 Acquired absence of right finger(s); Z68.27 Body mass index [BMI] 27.0-27.9, adult; Z79.899 Other long term (current) drug therapy; Z86.718 Personal history of other venous thrombosis and embolism; Z79.4 Long term (current) use of insulin; Y83.5 Amputation of limb(s) as the cause of abnormal reaction of the patient, or of later complication, without mention of misadventure at the time of the procedure
CPT/HCPCS: 36416; 82948; A6209; G0463; A6021; A6206; A6446

== ENCOUNTER 2018-10-21 13:29 | Inpatient (IN) | payer MEDICAID ==
[~2018-10-21] VITALS: Ht 190.5 cm; Wt 109.1 kg
[2018-10-21 15:00] LABS: BASOPHILS % (AUTO) 0.4 % (0-1); EOSINOPHILS # (AUTO) 0.1 X10'3 (0-0.9); HEMOGLOBIN 7.2 g/dl (14.0-17.9); LYMPHOCYTES # (AUTO) 1.2 X10'3 (1.1-4.8); LYMPHOCYTES % (AUTO) 12.6 % (21-51); MEAN CORPUSCULAR HGB CONC 33.4 g/dL (33.0-36.5); MEAN CORPUSCULAR VOLUME 89.9 FL (78-98); MEAN PLATELET VOLUME 7.3 FL (7.4-10.4); MONOCYTES # (AUTO) 1.1 X10'3 (0-0.9); MONOCYTES % (AUTO) 11.4 % (2-12); NEUTROPHILS # (AUTO) 7.1 X10'3 (1.8-7.7); NEUTROPHILS % (AUTO) 74.6 % (42-75); PLATELET COUNT 301 X10'3 (140-440); RED BLOOD COUNT 2.39 X10'6 (4.70-6.10); RED CELL DISTRIBUTION WIDTH 16.9 % (11.5-14.5); WHITE BLOOD COUNT 9.6 X10'3 (4.5-11.0)
[2018-10-21 15:05] LABS: HEMATOCRIT 21.5 % (42.0-52.0)
[2018-10-21] MEDS ORDERED: vancomycin/NS 1 GM ADD-VANTAGE 250 ML IV ONE (15:05)
[2018-10-21] MEDS ORDERED: piperacillin/tazo 3.375gm/50ml 50 ML IV ONE (15:05)
[2018-10-21] MEDS ORDERED: normal saline 1000ML IV soln IV ONE (15:05)
[2018-10-21 15:13] LABS: ALANINE AMINOTRANSFERASE 63 U/L (12-78); ALBUMIN 2.1 G/DL (3.4-5.0); ALBUMIN/GLOBULIN RATIO 0.3 (1.1-1.5); ALKALINE PHOSPHATASE 188 IU/L (46-116); ANION GAP 11 (8-16); ASPARTATE AMINO TRANSFERASE 62 U/L (10-37); BILIRUBIN,TOTAL 0.4 MG/DL (0.1-1.0); BLOOD UREA NITROGEN 46 MG/DL (7-18); BUN/CREATININE RATIO 8.7 (5.4-32.0); CALCIUM 8.6 MG/DL (8.5-10.1); CHLORIDE 99 MMOL/L (99-107); CREATININE 5.27 MG/DL (0.60-1.10); GLUCOSE 121 MG/DL (70-104); POTASSIUM 4.3 MMOL/L (3.5-5.1); SODIUM 131 MMOL/L (135-145); TOTAL CARBON DIOXIDE 21.3 MMOL/L (24-32); TOTAL PROTEIN 9.4 G/DL (6.4-8.2); eGFR 14 ML/MIN
[2018-10-21 15:15] LABS: CLARITY,URINE TURBID (Clear); COLOR,URINE YELLOW (Yellow); GLUCOSE, URINE 100 mg/dl (Neg); KETONES,URINE NEGATIVE (Neg); LEUKOCYTE ESTERASE ,URINE NEGATIVE (Neg); NITRITES, URINE NEGATIVE (Neg); OCCULT BLOOD,URINE MODERATE (Neg); PH,URINE 5.5 (4.8-8.0); PROTEIN,URINE >=300 mg/dl (Neg)
[2018-10-21 15:16] LABS: UA COLLECTION TYPE NON-SPECIFIED
[2018-10-21 15:28] LABS: SQUAMOUS EPITHELIAL CELL,UR FEW /LPF (FEW)
[2018-10-21 15:29] LABS: HYALINE CASTS 0-3 /LPF (NEGATIVE)
[2018-10-21 15:31] LABS: BACTERIA,URINE FEW /HPF (Neg); MUCUS STRANDS FEW /LPF (Neg); RBC,URINE 0-2 /HPF (0-2); RENAL CELLS, URINE FEW /HPF; TRANSITIONAL EPI CELLS,URINE FEW /HPF; WBC,URINE 0-4 /HPF (0-4)
[2018-10-21] MEDS ORDERED: mag hydrox/Alum hydrox/simeth 30ml oral suspension PO PRN (16:25)
[2018-10-21] MEDS ORDERED: ondansetron/PF 4mg/2ml inj IV PRN (16:25)
[2018-10-21] MEDS ORDERED: magnesium hydroxide 30ml (MOM) UD suspension PO PRN (16:25)
[2018-10-21] MEDS ORDERED: acetaminophen 325mg tablet PO PRN (16:25)
[2018-10-21] MEDS ORDERED: HYDROmorphone inj. 0.5 MG/0.5 ML DISP.SYRIN IV PRN (16:25)
[2018-10-21] MEDS ORDERED: HYDROcodone/acetaminophen 5mg/325mg tablet PO PRN (16:25)
[2018-10-21] MEDS ORDERED: HYDROmorphone 1 mg/ml syringe IV PRN (16:36)
[2018-10-21] MEDS ORDERED: [UNRECOGNIZED DRUG - REMARK] (17:05)
[2018-10-21] MEDS: cefepime 1GM/NS ADD-VANTAGE 100 ML IV SCH (18:29)
[2018-10-21] MEDS: normal saline 1000ml 1,000 ML IV SCH (18:41)
--- NOTE | 2018-10-21 19:42 | NUR ---
dressing applied to wounds x4 to left foot at this time with xeroform, 4x4, conchita and cal wrap, tolerated well. wound culture collected, photos taken and placed in chart.
[2018-10-21] MEDS: heparin, porcine 5000 units/ml vial SQ SCH (20:44)
[2018-10-21 22:25] VITALS: BP 145/61
--- NOTE | 2018-10-21 22:25 | NUR ---
PATIENT ADMITTED TO ROOM 344A FROM ER FOR LEFT FOOT CELLULITIS. PLACED COMFORTABLE IN BED. VITAL SIGNS TAKEN AND RECORDED.
[2018-10-22] VITALS: BP 144/61
[2018-10-22 04:46] LABS: BASOPHILS % (AUTO) 0.4 % (0-1); EOSINOPHILS # (AUTO) 0.1 X10'3 (0-0.9); EOSINOPHILS % (AUTO) 1.3 % (0-6); HEMATOCRIT 23.3 % (42.0-52.0); HEMOGLOBIN 7.7 g/dl (14.0-17.9); LYMPHOCYTES # (AUTO) 1.1 X10'3 (1.1-4.8); LYMPHOCYTES % (AUTO) 10.2 % (21-51); MEAN CORPUSCULAR HEMOGLOBIN 29.8 PG (27.0-31.0); MEAN CORPUSCULAR HGB CONC 33.1 g/dL (33.0-36.5); MEAN CORPUSCULAR VOLUME 89.9 FL (78-98); MEAN PLATELET VOLUME 7.5 FL (7.4-10.4); MONOCYTES # (AUTO) 1.1 X10'3 (0-0.9); MONOCYTES % (AUTO) 9.8 % (2-12); NEUTROPHILS # (AUTO) 8.7 X10'3 (1.8-7.7); NEUTROPHILS % (AUTO) 78.3 % (42-75); PLATELET COUNT 285 X10'3 (140-440); RED BLOOD COUNT 2.59 X10'6 (4.70-6.10); RED CELL DISTRIBUTION WIDTH 16.7 % (11.5-14.5); WHITE BLOOD COUNT 11.1 X10'3 (4.5-11.0)
[2018-10-22 04:56] LABS: ALBUMIN 1.8 G/DL (3.4-5.0); ANION GAP 7 (8-16); BLOOD UREA NITROGEN 40 MG/DL (7-18); BUN/CREATININE RATIO 8.6 (5.4-32.0); CALCIUM 8.6 MG/DL (8.5-10.1); CHLORIDE 106 MMOL/L (99-107); CREATININE 4.65 MG/DL (0.60-1.10); GLUCOSE 133 MG/DL (70-104); POTASSIUM 4.1 MMOL/L (3.5-5.1); SODIUM 133 MMOL/L (135-145); TOTAL CARBON DIOXIDE 19.8 MMOL/L (24-32); eGFR 16 ML/MIN
[2018-10-22] MEDS: normal saline 1000ml 1,000 ML IV SCH ×3 (06:00→20:18)
--- NOTE | 2018-10-22 06:30 | NUR ---
Problems reprioritized. Patient report given, questions answered & plan of care reviewed with LEYDI GOMEZ.
[2018-10-22 06:55] VITALS: BP 149/62
[2018-10-22] MEDS: heparin, porcine 5000 units/ml vial SQ SCH ×2 (07:55→19:59)
[2018-10-22] MEDS: cefepime 1GM/NS ADD-VANTAGE 100 ML IV SCH ×2 (07:57→16:02)
[2018-10-22] MEDS ORDERED: dextrose 50%-water 50ml dispensing syringe IV PRN ×2 (10:30)
[2018-10-22] MEDS ORDERED: insulin Lispro (HumaLOG) vial - multi-dose SQ SCH (10:30)
[2018-10-22] MEDS ORDERED: MESSAGE TO PHARMACY PO ONE (10:30)
[2018-10-22] MEDS ORDERED: glucagon, human recombinant 1mg kit SUBCUT PRN (10:30)
[2018-10-22] MEDS ORDERED: dextrose ORAL solution 15 GM/59 ML bottle PO PRN ×2 (10:30)
[2018-10-22 11:56] VITALS: BP 154/69
[2018-10-22] MEDS: metroNIDAZOLE-Flagyl 500mg/NS 100 ML IV SCH ×2 (16:47→23:43)
[2018-10-22 18:00] VITALS: BP 147/59
--- NOTE | 2018-10-22 18:05 | NUR ---
Patient in room [facility]. I have received report from Nabila GOMEZ and had the opportunity to ask questions and assume patient care.
--- NOTE | 2018-10-22 18:47 | NUR ---
Problems reprioritized. Patient report given, questions answered & plan of care reviewed with Arianna GOMEZ.
[2018-10-22] MEDS: lactobacillus rhamnosus 10,000 MMU CELLS/CAPSULE PO SCH (19:59)
[2018-10-22] MEDS: insulin glargine (Lantus) pen - multi-dose SQ SCH (21:00)
[2018-10-23] VITALS (27 sets, daily range): BP systolic 132–187; BP diastolic 67–90
--- NOTE | 2018-10-23 | NUR ---
oxygen saturation in the low 80% when checking vitals sign, pt did not want to put oxygen on for the PCT. went to check saturation and it was staying at 79%. had pt cough and deep breath and it went up to 88% on room air then came back down to low 80s. sat pt up in bed and placed on 3L NC. informed Dr. Baig. Dr. Baig assess pt and chart. order stat chest xray and ABGs. will continue to monitor. Dr. Baig also ordered and encourage an IS. went to educate pt about using it and he does not want the "plastic thing." will continue to monitor.
[2018-10-23 02:56] LABS: ABG BASE EXCESS -9.2 mmol/L (-2.0-3.0); ABG OXYGEN SATURATION 89.8 % (95-98); ABG PCO2 (T) 26.6 mmHg (35.0-48.0); ABG PH (T) 7.373 (7.350-7.450); ABG PO2 (T) 59.8 mmHg (83-108); FMetHb 0.2 % (0.3-1.12); FO2Hb 89.6 % (94-100); PATIENT TEMPERATURE 37.6; RESPIRATORY RATE 20 b/min; TOTAL HEMOGLOBIN 6.1 G/dl (14.0-18.0)
--- NOTE | 2018-10-23 03:00 | NUR ---
[facility] in and CX ray taken. ABG showed Hb of 6.1.
--- NOTE | 2018-10-23 03:22 | NUR ---
new orders given per Dr. Baig
[2018-10-23 04:30] LABS: ABG BASE EXCESS -8.9 mmol/L (-2.0-3.0); ABG HCO3 15.4 mmol/L (22.0-26.0); ABG OXYGEN SATURATION 96.2 % (95-98); ABG PCO2 (T) 26.7 mmHg (35.0-48.0); ABG PH (T) 7.377 (7.350-7.450); ABG PO2 (T) 83.8 mmHg (83-108); ALLEN'S TEST Positive; FCOHb 0.6 % (0.5-1.5); FLOW 3 L/min; FMetHb 0.1 % (0.3-1.12); FO2Hb 95.5 % (94-100); PATIENT TEMPERATURE 36.6; RESPIRATORY RATE (OBSERVED) 20 b/min; TOTAL HEMOGLOBIN 7.5 G/dl (14.0-18.0)
[2018-10-23 05:22] LABS: BASOPHILS % (AUTO) 0.4 % (0-1); EOSINOPHILS # (AUTO) 0.1 X10'3 (0-0.9); EOSINOPHILS % (AUTO) 1.3 % (0-6); LYMPHOCYTES % (AUTO) 9.6 % (21-51); MEAN CORPUSCULAR HEMOGLOBIN 30.3 PG (27.0-31.0); MEAN CORPUSCULAR HGB CONC 33.5 g/dL (33.0-36.5); MEAN CORPUSCULAR VOLUME 90.6 FL (78-98); MEAN PLATELET VOLUME 7.6 FL (7.4-10.4); MONOCYTES % (AUTO) 9.5 % (2-12); NEUTROPHILS # (AUTO) 8.1 X10'3 (1.8-7.7); NEUTROPHILS % (AUTO) 79.2 % (42-75); PLATELET COUNT 259 X10'3 (140-440); RED BLOOD COUNT 2.09 X10'6 (4.70-6.10); WHITE BLOOD COUNT 10.3 X10'3 (4.5-11.0)
[2018-10-23] MEDS: normal saline 1000ml 1,000 ML IV SCH ×2 (05:23→18:25)
[2018-10-23 05:33] LABS: ALBUMIN 1.5 G/DL (3.4-5.0); ANION GAP 9 (8-16); BLOOD UREA NITROGEN 35 MG/DL (7-18); BUN/CREATININE RATIO 8.3 (5.4-32.0); CHLORIDE 106 MMOL/L (99-107); CREATININE 4.22 MG/DL (0.60-1.10); GLUCOSE 112 MG/DL (70-104); POTASSIUM 3.9 MMOL/L (3.5-5.1); SODIUM 133 MMOL/L (135-145); TOTAL CARBON DIOXIDE 18.1 MMOL/L (24-32); eGFR 15 ML/MIN
[2018-10-23 05:40] LABS: HEMATOCRIT 18.9 % (42.0-52.0); HEMOGLOBIN 6.3 g/dl (14.0-17.9)
--- NOTE | 2018-10-23 05:45 | NUR ---
Dr. Baig paged. H&H 6.3&18.9. Dr. Baig came up and consented the pt. consent in the chart. educated given by dr. Baig. 2 Units of blood ordered because pt is going in to surgery today. type and screen ordered. will continue to monitor.
--- NOTE | 2018-10-23 06:00 | NUR ---
Problems reprioritized. Patient report given, questions answered & plan of care reviewed with Hemanth GOMEZ.
--- NOTE | 2018-10-23 06:47 | NUR ---
Patient in room [facility]. I have received report from PATRICIA Keller and had the opportunity to ask questions and assume patient care.
[2018-10-23] MEDS: cefepime 1GM/NS ADD-VANTAGE 100 ML IV SCH ×2 (07:28→16:12)
[2018-10-23] MEDS: lactobacillus rhamnosus 10,000 MMU CELLS/CAPSULE PO SCH ×2 (07:35→19:48)
--- NOTE | 2018-10-23 07:49 | NUR ---
Dr. Rousseau notified that patient H/H is 6.3/18.9 and will be receiving 2 units prbc.
[2018-10-23] MEDS: heparin, porcine 5000 units/ml vial SQ SCH ×2 (08:00→19:48)
[2018-10-23] MEDS: metroNIDAZOLE-Flagyl 500mg/NS 100 ML IV SCH ×3 (08:14→23:46)
--- NOTE | 2018-10-23 10:46 | NUR ---
Patient currently has 1 unit of PRBC infusing. Umer, OR rn relief charge states he has spoken to Dr. Rousseau and Dr. Rousseau would like for patient to go to OR now. Maria Del Carmen, PREPARATION OPERATOR was called and given report. Also let Maria Del Carmen know that patient next vs due will be at 1101.
--- NOTE | 2018-10-23 10:51 | NUR ---
Patient down to OR via bed accompanied by x2 staff.
[2018-10-23] MEDS ORDERED: povidone-iodine 10% topical ointment 28.4gm TP ONE (10:52)
[2018-10-23] MEDS ORDERED: MIDAZolam 5mg/5ml vial ONE (11:38)
[2018-10-23] MEDS ORDERED: fentaNYL /PF 50mcg/ml 5ml ampule ONE (11:38)
[2018-10-23] MEDS ORDERED: ketamine 50mg/5ml syringe ONE (11:38)
[2018-10-23] MEDS ORDERED: ondansetron/PF 4mg/2ml inj IV PRN (12:55)
[2018-10-23] MEDS ORDERED: ringers solution, lacted 1,000 ML IV SCH (12:55)
[2018-10-23] MEDS ORDERED: HYDROmorphone inj. 0.5 MG/0.5 ML DISP.SYRIN IV PRN (12:55)
[2018-10-23] MEDS ORDERED: morphine 4 MG/ML inj SYRINge IV PRN (12:55)
[2018-10-23] MEDS ORDERED: metoprolol tartrate 1mg/ml inj IV ONE (13:08)
[2018-10-23] MEDS ORDERED: BUPIVAcaine/PF 7.5mg/ml (0.75%) 10ml vial IJ ONE (13:08)
[2018-10-23] MEDS ORDERED: propofol 10mg/ml 20ml vial IV ONE (13:08)
[2018-10-23] MEDS ORDERED: LIDOcaine 2% (20mg/ml) 5ml vial ONE (13:08)
--- NOTE | 2018-10-23 13:42 | NUR ---
Received from OR via rochelle, accompanied by Anesthesiologist JUAN and report given by Anesthesiolgist. Pt VSS, wound vac in place to left extremity, serosang drainage minimal, IV infiltrated, no IV being started, unit of blood from OR almost infused. Pt opens eyes responds to questions no complaints of pain at this time.
--- NOTE | 2018-10-23 14:15 | NUR ---
After IV infiltrated and two failed attempts to start a new one, called Dr Rousseau and he states okay to place extended line, PICC line not necessary, ABX will be needed for about 4-7 days. He also states okay to continue all orders and wound vac settings at 125.
--- NOTE | 2018-10-23 14:35 | NUR ---
Extended line placed to upper left arm
[2018-10-23 14:46] LABS: ISTAT CREATININE 4.1 mg/dL (0.8-1.3); ISTAT HGB 7.5 g/dl (14.0-18.0); ISTAT IONIZED CALCIUM 1.18 mmol/L (1.03-1.32); ISTAT K 4.6 mmol/L (3.5-5.1); POC BUN/CREATININE RATIO 8.3 (5.4-32.0)
--- NOTE | 2018-10-23 15:06 | NUR ---
RECEIVED REPORT FROM PATRICIA ELIZONDO. AWAITING PATIENT RETURN TO ROOM 344A.
--- NOTE | 2018-10-23 15:12 | NUR ---
Report given to PATRICIA Curtis and all pertinent information relayed to RN. [facility] room, call light given to patient, BLL, belongings/hat returned with patient. Dressings CDI, wound vac at continuous 125. Extended line placed by PICC RN and communicated to receiving RN.
--- NOTE | 2018-10-23 15:15 | NUR ---
RECEIVED PATIENT BACK TO ROOM 344A. PATIENT IS DROWSY BUT IS EASILY AWAKEN TO VOICE AND IS ORIENTED. HE C/O 4/10 PAIN BUT REFUSES PAIN MED AT THIS TIME. WOUND VAC TO LEFT FOOT SUCTIONING AT 125MMHG WITH SANGUINOUS DRAINAGE. POST OP VSS. BP IS 160//85, 162/87. DR MICHAEL WAS IN TO SEE PATIENT AND HAS NO NEW ORDERS. WILL CONTINUE TO MONITOR.
[2018-10-23 17:13] LABS: BASOPHILS # (AUTO) 0.1 X10'3 (0-0.2); BASOPHILS % (AUTO) 0.5 % (0-1); EOSINOPHILS # (AUTO) 0.1 X10'3 (0-0.9); EOSINOPHILS % (AUTO) 1.2 % (0-6); HEMATOCRIT 22.6 % (42.0-52.0); HEMOGLOBIN 7.6 g/dl (14.0-17.9); LYMPHOCYTES # (AUTO) 1.2 X10'3 (1.1-4.8); LYMPHOCYTES % (AUTO) 10.4 % (21-51); MEAN CORPUSCULAR HEMOGLOBIN 30.3 PG (27.0-31.0); MEAN CORPUSCULAR HGB CONC 33.7 g/dL (33.0-36.5); MEAN CORPUSCULAR VOLUME 89.9 FL (78-98); MEAN PLATELET VOLUME 7.1 FL (7.4-10.4); MONOCYTES # (AUTO) 1.1 X10'3 (0-0.9); MONOCYTES % (AUTO) 9.8 % (2-12); NEUTROPHILS # (AUTO) 8.7 X10'3 (1.8-7.7); NEUTROPHILS % (AUTO) 78.1 % (42-75); PLATELET COUNT 281 X10'3 (140-440); RED BLOOD COUNT 2.51 X10'6 (4.70-6.10); RED CELL DISTRIBUTION WIDTH 17.5 % (11.5-14.5); WHITE BLOOD COUNT 11.1 X10'3 (4.5-11.0)
--- NOTE | 2018-10-23 18:35 | NUR ---
Received report from Hemanth GOMEZ pt is awake and alert on 2L of o2 via NC, in no apparent distress, NS running@100mL/hr, WV running@ 125 with 25ml of output
--- NOTE | 2018-10-23 18:38 | NUR ---
Problems reprioritized. Patient report given, questions answered & plan of care reviewed with PATRICIA Novoa.
[2018-10-23] MEDS: insulin glargine (Lantus) pen - multi-dose SQ SCH (21:00)
[2018-10-24] VITALS: BP 163/85
[2018-10-24] MEDS: normal saline 1000ml 1,000 ML IV SCH ×2 (01:49→14:33)
[2018-10-24 04:00] VITALS: BP 159/85
[2018-10-24 05:51] LABS: ALBUMIN 1.5 G/DL (3.4-5.0); ANION GAP 11 (8-16); BASOPHILS % (AUTO) 0.2 % (0-1); BLOOD UREA NITROGEN 36 MG/DL (7-18); BUN/CREATININE RATIO 9.4 (5.4-32.0); CALCIUM 8.1 MG/DL (8.5-10.1); CHLORIDE 107 MMOL/L (99-107); CREATININE 3.85 MG/DL (0.60-1.10); EOSINOPHILS # (AUTO) 0.2 X10'3 (0-0.9); EOSINOPHILS % (AUTO) 1.8 % (0-6); GLUCOSE 119 MG/DL (70-104); HEMOGLOBIN 7.7 g/dl (14.0-17.9); LYMPHOCYTES % (AUTO) 9.5 % (21-51); MEAN CORPUSCULAR HEMOGLOBIN 30.5 PG (27.0-31.0); MEAN CORPUSCULAR HGB CONC 33.4 g/dL (33.0-36.5); MEAN CORPUSCULAR VOLUME 91.4 FL (78-98); MEAN PLATELET VOLUME 7.6 FL (7.4-10.4); MONOCYTES # (AUTO) 1.1 X10'3 (0-0.9); MONOCYTES % (AUTO) 9.7 % (2-12); NEUTROPHILS # (AUTO) 8.6 X10'3 (1.8-7.7); NEUTROPHILS % (AUTO) 78.8 % (42-75); PLATELET COUNT 310 X10'3 (140-440); POTASSIUM 4.3 MMOL/L (3.5-5.1); RED BLOOD COUNT 2.51 X10'6 (4.70-6.10); RED CELL DISTRIBUTION WIDTH 17.7 % (11.5-14.5); SODIUM 134 MMOL/L (135-145); TOTAL CARBON DIOXIDE 16.2 MMOL/L (24-32); eGFR 16 ML/MIN
--- NOTE | 2018-10-24 06:30 | NUR ---
Gave report to Jacki GOMEZ pt is awake in no apparent distress, call light and items and freq use within reach.
[2018-10-24 07:15] VITALS: BP 155/82
[2018-10-24] MEDS: cefepime 1GM/NS ADD-VANTAGE 100 ML IV SCH ×2 (07:24→17:00)
[2018-10-24] MEDS: lactobacillus rhamnosus 10,000 MMU CELLS/CAPSULE PO SCH ×2 (08:04→21:28)
[2018-10-24] MEDS: heparin, porcine 5000 units/ml vial SQ SCH ×2 (08:05→21:30)
[2018-10-24] MEDS: metroNIDAZOLE-Flagyl 500mg/NS 100 ML IV SCH ×3 (08:06→23:56)
[2018-10-24 11:44] VITALS: BP 169/88
[2018-10-24 18:00] VITALS: BP 162/84
--- NOTE | 2018-10-24 18:19 | NUR ---
Problems reprioritized. Patient report given, questions answered & plan of care reviewed with PATRICIA Crenshaw.
--- NOTE | 2018-10-24 18:20 | NUR ---
Patient in room [facility] 344. I have received report from PATRICIA Echeverria and had the opportunity to ask questions and assume patient care.
[2018-10-24] MEDS: insulin glargine (Lantus) pen - multi-dose SQ SCH (21:00)
[2018-10-25] VITALS (10 sets, daily range): BP systolic 157–174; BP diastolic 80–94
[2018-10-25] MEDS: normal saline 1000ml 1,000 ML IV SCH ×3 (04:00→21:14)
[2018-10-25 05:56] LABS: BASOPHILS % (AUTO) 0.4 % (0-1); EOSINOPHILS # (AUTO) 0.3 X10'3 (0-0.9); EOSINOPHILS % (AUTO) 2.5 % (0-6); LYMPHOCYTES # (AUTO) 1.3 X10'3 (1.1-4.8); LYMPHOCYTES % (AUTO) 12.1 % (21-51); MEAN CORPUSCULAR HEMOGLOBIN 30.8 PG (27.0-31.0); MEAN CORPUSCULAR HGB CONC 34.6 g/dL (33.0-36.5); MEAN PLATELET VOLUME 7.2 FL (7.4-10.4); MONOCYTES # (AUTO) 1.2 X10'3 (0-0.9); MONOCYTES % (AUTO) 11.7 % (2-12); NEUTROPHILS # (AUTO) 7.7 X10'3 (1.8-7.7); NEUTROPHILS % (AUTO) 73.3 % (42-75); PLATELET COUNT 287 X10'3 (140-440); RED BLOOD COUNT 2.25 X10'6 (4.70-6.10); RED CELL DISTRIBUTION WIDTH 17.6 % (11.5-14.5); WHITE BLOOD COUNT 10.6 X10'3 (4.5-11.0)
[2018-10-25 06:00] LABS: HEMOGLOBIN 6.9 g/dl (14.0-17.9)
--- NOTE | 2018-10-25 06:11 | NUR ---
Problems reprioritized. Patient report given, questions answered & plan of care reviewed with PATRICIA Dahl.
[2018-10-25 06:18] LABS: ALBUMIN 1.4 G/DL (3.4-5.0); ANION GAP 11 (8-16); BLOOD UREA NITROGEN 32 MG/DL (7-18); CALCIUM 8.1 MG/DL (8.5-10.1); CHLORIDE 109 MMOL/L (99-107); CREATININE 3.56 MG/DL (0.60-1.10); GLUCOSE 104 MG/DL (70-104); POTASSIUM 4.1 MMOL/L (3.5-5.1); SODIUM 136 MMOL/L (135-145); TOTAL CARBON DIOXIDE 16.1 MMOL/L (24-32); eGFR 18 ML/MIN
[2018-10-25] MEDS: cefepime 1GM/NS ADD-VANTAGE 100 ML IV SCH ×2 (07:14→16:59)
[2018-10-25] MEDS: metroNIDAZOLE-Flagyl 500mg/NS 100 ML IV SCH ×3 (08:06→23:54)
[2018-10-25] MEDS: lactobacillus rhamnosus 10,000 MMU CELLS/CAPSULE PO SCH ×2 (08:07→21:13)
[2018-10-25] MEDS: heparin, porcine 5000 units/ml vial SQ SCH ×2 (08:08→21:14)
--- NOTE | 2018-10-25 10:58 | NUR ---
OKAY TO DC ACCUCHECKS PER DR MICHAEL. PT HAS NOT MET PROTOCOL SINCE ADMISSION.
[2018-10-25] MEDS: amLODIPine 5mg tablet PO SCH (12:43)
[2018-10-25] MEDS: hydrALAZINE 20mg/ml inj. IV PRN (12:46)
--- NOTE | 2018-10-25 13:54 | NUR ---
PRN hydralize ordered and given along with norvac one hour ago, pt bp still 170's systolic, Dr Anaya paged about this. Will continue to monitor.
[2018-10-25] MEDS ORDERED: VANCOMYCIN LEVEL IV ONE (15:30)
--- NOTE | 2018-10-25 16:42 | NUR ---
vanco trough 33.4. Per pharmacist hold dose and pharmacy will re-time new dosage when appropriate.
--- NOTE | 2018-10-25 18:25 | NUR ---
Problems reprioritized. Patient report given, questions answered & plan of care reviewed with Den GOMEZ.
--- NOTE | 2018-10-25 18:26 | NUR ---
Patient in room [facility] 344. I have received report from PATRICIA Dahl and had the opportunity to ask questions and assume patient care.
[2018-10-25] MEDS: insulin glargine (Lantus) pen - multi-dose SQ SCH (21:00)
--- NOTE | 2018-10-25 23:47 | NUR ---
Patient refused MOM.
[2018-10-26] VITALS: BP 166/84
[2018-10-26] MEDS: hydrALAZINE 20mg/ml inj. IV PRN ×2 (00:36→23:47)
[2018-10-26 05:09] LABS: BASOPHILS % (AUTO) 0.5 % (0-1); EOSINOPHILS # (AUTO) 0.2 X10'3 (0-0.9); EOSINOPHILS % (AUTO) 2.3 % (0-6); HEMATOCRIT 24.1 % (42.0-52.0); HEMOGLOBIN 8.4 g/dl (14.0-17.9); LYMPHOCYTES # (AUTO) 1.2 X10'3 (1.1-4.8); LYMPHOCYTES % (AUTO) 11.4 % (21-51); MEAN CORPUSCULAR HEMOGLOBIN 30.9 PG (27.0-31.0); MEAN CORPUSCULAR HGB CONC 34.9 g/dL (33.0-36.5); MEAN CORPUSCULAR VOLUME 88.5 FL (78-98); MEAN PLATELET VOLUME 7.3 FL (7.4-10.4); MONOCYTES # (AUTO) 1.2 X10'3 (0-0.9); MONOCYTES % (AUTO) 10.9 % (2-12); NEUTROPHILS # (AUTO) 8.1 X10'3 (1.8-7.7); NEUTROPHILS % (AUTO) 74.9 % (42-75); PLATELET COUNT 387 X10'3 (140-440); RED BLOOD COUNT 2.72 X10'6 (4.70-6.10); RED CELL DISTRIBUTION WIDTH 17.2 % (11.5-14.5); WHITE BLOOD COUNT 10.8 X10'3 (4.5-11.0)
[2018-10-26 05:34] LABS: ALBUMIN 1.6 G/DL (3.4-5.0); ANION GAP 12 (8-16); BLOOD UREA NITROGEN 27 MG/DL (7-18); BUN/CREATININE RATIO 8.6 (5.4-32.0); CALCIUM 8.4 MG/DL (8.5-10.1); CHLORIDE 108 MMOL/L (99-107); CREATININE 3.13 MG/DL (0.60-1.10); GLUCOSE 119 MG/DL (70-104); POTASSIUM 3.5 MMOL/L (3.5-5.1); SODIUM 137 MMOL/L (135-145); eGFR 21 ML/MIN
--- NOTE | 2018-10-26 06:30 | NUR ---
Patient in room [facility] 344. I have received report from PATRICIA Crenshaw and had the opportunity to ask questions and assume patient care.
--- NOTE | 2018-10-26 06:49 | NUR ---
Problems reprioritized. Patient report given, questions answered & plan of care reviewed with Carmen. PATRICIA.
[2018-10-26] MEDS: cefepime 1GM/NS ADD-VANTAGE 100 ML IV SCH ×2 (07:14→17:23)
[2018-10-26] MEDS: normal saline 1000ml 1,000 ML IV SCH ×2 (07:17→17:58)
[2018-10-26] MEDS: amLODIPine 5mg tablet PO SCH (07:21)
[2018-10-26] MEDS: lactobacillus rhamnosus 10,000 MMU CELLS/CAPSULE PO SCH ×2 (07:21→19:08)
[2018-10-26] MEDS: heparin, porcine 5000 units/ml vial SQ SCH ×2 (07:23→19:08)
[2018-10-26 07:34] VITALS: BP 163/82
[2018-10-26] MEDS: metroNIDAZOLE-Flagyl 500mg/NS 100 ML IV SCH (09:46)
[2018-10-26 11:00] VITALS: BP 146/77
[2018-10-26] MEDS ORDERED: vancomycin/NS 1 GM ADD-VANTAGE 250 ML IV SCH (16:00)
[2018-10-26] MEDS: metroNIDAZOLE 500mg tablet PO SCH ×2 (17:22→23:47)
--- NOTE | 2018-10-26 18:42 | NUR ---
Problems reprioritized. Patient report given, questions answered & plan of care reviewed with PATRICIA Goode.
[2018-10-26] MEDS: insulin glargine (Lantus) pen - multi-dose SQ SCH (18:58)
[2018-10-26 20:00] VITALS: BP 167/94
[2018-10-27] VITALS: BP 179/94
[2018-10-27] MEDS: normal saline 1000ml 1,000 ML IV SCH ×3 (02:25→15:46)
--- NOTE | 2018-10-27 06:32 | NUR ---
Patient in room [facility]. I have received report from PATRICIA Goode and had the opportunity to ask questions and assume patient care.
--- NOTE | 2018-10-27 06:37 | NUR ---
Problems reprioritized. Patient report given, questions answered & plan of care reviewed with PATRICIA Morales.
[2018-10-27] MEDS: cefepime 1GM/NS ADD-VANTAGE 100 ML IV SCH (07:19)
[2018-10-27] MEDS: metroNIDAZOLE 500mg tablet PO SCH ×2 (07:21→15:46)
[2018-10-27] MEDS: amLODIPine 5mg tablet PO SCH (07:21)
[2018-10-27] MEDS: lactobacillus rhamnosus 10,000 MMU CELLS/CAPSULE PO SCH ×2 (07:21→20:23)
[2018-10-27] MEDS: heparin, porcine 5000 units/ml vial SQ SCH ×2 (07:22→20:23)
[2018-10-27 07:43] VITALS: BP 153/73
[2018-10-27 11:00] VITALS: BP 161/91
--- NOTE | 2018-10-27 12:04 | NUR ---
WOUND VAC EDUCATION PROVIDED BY WOUND CARE 1. Patient instructed to call the Wound Center or their Home Health Agency immediately if: * They notice a change in the color or amount of the fluid in the canister. * Their wound looks more red than usual or has a foul smell. * The skin around their wound looks reddened or irritated. * The dressing feels loose or appears to be loose. * They experience any increase or changes in their pain. * The alarm will not turn off. 2. Patient instructed that they should not be disconnected from suction for more than 2 hours at a time. * If they are not able to get the suction back on, they need to remove the dressing and take all of the foam out of the wound. * Then moisten sterile gauze with normal saline and place on/in the wound. * Change the dressing once a day until arrangements have been made to replace the wound vac dressing. 3. Patient instructed to turn the wound vac machine OFF and call 911 or go to the ED immediately if their canister fills rapidly with blood. 4. If any of these occur while in the hospital tell a nurse immediately. Addendum: 10/27/18 at 1204 by Izabella Hyman RN Amended: Links added.
[2018-10-27] MEDS: CefTRIAXone 2gm/D5W 50ml 50 ML IV SCH (12:19)
--- NOTE | 2018-10-27 16:16 | NUR ---
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 Hx prior R [facility]. PO 75% carb controlled diet increased from 25% prior on admit. Pt has wound vac to to L foot. RD provided pt w/ written/verbal high protein and DM eds w/ RD contact information provided. LBM documented 10/21 but pt reports no constipation or discomfort during RD visit. Pt declines additional proteins at this time. Will coniine to monitor. Rec: 1. continue carb controlled diet 2. MVI for wounds 3. routine bowel care 4. wt per rx Addendum: 10/27/18 at [address] Amended: Links added.
--- NOTE | 2018-10-27 18:40 | NUR ---
Problems reprioritized. Patient report given, questions answered & plan of care reviewed with PATRICIA Goode.
[2018-10-27 20:00] VITALS: BP 166/88
[2018-10-27] MEDS: insulin glargine (Lantus) pen - multi-dose SQ SCH (21:00)
[2018-10-28] VITALS: BP 141/70
[2018-10-28] MEDS: metroNIDAZOLE 500mg tablet PO SCH ×4 (00:31→23:39)
--- NOTE | 2018-10-28 06:19 | NUR ---
Problems reprioritized. Patient report given, questions answered & plan of care reviewed with PATRICIA Morales.
--- NOTE | 2018-10-28 06:28 | NUR ---
Patient in room [facility]. I have received report from PATRICIA Goode and had the opportunity to ask questions and assume patient care.
[2018-10-28 07:00] VITALS: BP 165/92
[2018-10-28] MEDS: heparin, porcine 5000 units/ml vial SQ SCH ×2 (08:00→19:16)
[2018-10-28] MEDS: amLODIPine 5mg tablet PO SCH (09:00)
[2018-10-28] MEDS: lactobacillus rhamnosus 10,000 MMU CELLS/CAPSULE PO SCH ×2 (09:00→19:16)
[2018-10-28] MEDS: CefTRIAXone 2gm/D5W 50ml 50 ML IV SCH (09:00)
[2018-10-28 11:00] VITALS: BP 166/84
--- NOTE | 2018-10-28 18:15 | NUR ---
Problems reprioritized. Patient report given, questions answered & plan of care reviewed with PATRICIA Keller.
--- NOTE | 2018-10-28 18:17 | NUR ---
Patient in room [facility]. I have received report from Carmen GOMEZ and had the opportunity to ask questions and assume patient care.
[2018-10-28 20:00] VITALS: BP 160/76
[2018-10-28] MEDS: insulin glargine (Lantus) pen - multi-dose SQ SCH (21:00)
[2018-10-29] VITALS: BP 166/87
[2018-10-29 03:36] LABS: BASOPHILS % (AUTO) 0.4 % (0-1); EOSINOPHILS # (AUTO) 0.2 X10'3 (0-0.9); EOSINOPHILS % (AUTO) 2.5 % (0-6); HEMATOCRIT 23.3 % (42.0-52.0); HEMOGLOBIN 7.9 g/dl (14.0-17.9); LYMPHOCYTES # (AUTO) 1.7 X10'3 (1.1-4.8); LYMPHOCYTES % (AUTO) 18.4 % (21-51); MEAN CORPUSCULAR HEMOGLOBIN 30.5 PG (27.0-31.0); MEAN CORPUSCULAR HGB CONC 33.8 g/dL (33.0-36.5); MEAN CORPUSCULAR VOLUME 90.4 FL (78-98); MEAN PLATELET VOLUME 6.9 FL (7.4-10.4); MONOCYTES # (AUTO) 0.7 X10'3 (0-0.9); MONOCYTES % (AUTO) 7.4 % (2-12); NEUTROPHILS # (AUTO) 6.5 X10'3 (1.8-7.7); NEUTROPHILS % (AUTO) 71.3 % (42-75); PLATELET COUNT 418 X10'3 (140-440); RED BLOOD COUNT 2.58 X10'6 (4.70-6.10); RED CELL DISTRIBUTION WIDTH 17.4 % (11.5-14.5); WHITE BLOOD COUNT 9.1 X10'3 (4.5-11.0)
[2018-10-29 03:45] LABS: ALBUMIN 1.8 G/DL (3.4-5.0); ANION GAP 7 (8-16); BLOOD UREA NITROGEN 26 MG/DL (7-18); BUN/CREATININE RATIO 9.1 (5.4-32.0); CALCIUM 7.8 MG/DL (8.5-10.1); CHLORIDE 106 MMOL/L (99-107); CREATININE 2.85 MG/DL (0.60-1.10); GLUCOSE 99 MG/DL (70-104); POTASSIUM 3.8 MMOL/L (3.5-5.1); SODIUM 133 MMOL/L (135-145); TOTAL CARBON DIOXIDE 20.4 MMOL/L (24-32); eGFR 23 ML/MIN
[2018-10-29 04:11] LABS: ANISOCYTOSIS 1+; PLATELET ESTIMATE NORMAL; TOTAL CELLS COUNTED 100
--- NOTE | 2018-10-29 06:22 | NUR ---
Problems reprioritized. Patient report given, questions answered & plan of care reviewed with Jacki GOMEZ.
[2018-10-29 07:15] VITALS: BP 162/75
[2018-10-29] MEDS: lactobacillus rhamnosus 10,000 MMU CELLS/CAPSULE PO SCH ×2 (07:48→19:24)
[2018-10-29] MEDS: amLODIPine 5mg tablet PO SCH (07:48)
[2018-10-29] MEDS: metroNIDAZOLE 500mg tablet PO SCH ×3 (07:48→23:01)
[2018-10-29] MEDS: CefTRIAXone 2gm/D5W 50ml 50 ML IV SCH (07:49)
[2018-10-29] MEDS: heparin, porcine 5000 units/ml vial SQ SCH ×2 (07:49→19:24)
[2018-10-29 12:45] VITALS: BP 107/84
[2018-10-29] MEDS ORDERED: VANCOMYCIN LEVEL IV ONE (15:30)
--- NOTE | 2018-10-29 18:07 | NUR ---
Problems reprioritized. Patient report given, questions answered & plan of care reviewed with PATRICIA Keller.
[2018-10-29] MEDS: hydrALAZINE 20mg/ml inj. IV PRN (19:24)
[2018-10-29 20:00] VITALS: BP 164/82
[2018-10-29] MEDS: insulin glargine (Lantus) pen - multi-dose SQ SCH (20:35)
[2018-10-29 20:47] VITALS: BP 146/83
[2018-10-30] VITALS: BP 169/79
--- NOTE | 2018-10-30 06:05 | NUR ---
Patient in room [facility]. I have received report from PATRICIA Keller and had the opportunity to ask questions and assume patient care.
--- NOTE | 2018-10-30 06:30 | NUR ---
Problems reprioritized. Patient report given, questions answered & plan of care reviewed with Elida GOMEZ.
[2018-10-30 07:17] VITALS: BP 163/91
[2018-10-30] MEDS: metroNIDAZOLE 500mg tablet PO SCH ×3 (07:37→23:58)
[2018-10-30] MEDS: CefTRIAXone 2gm/D5W 50ml 50 ML IV SCH (07:37)
[2018-10-30] MEDS: lactobacillus rhamnosus 10,000 MMU CELLS/CAPSULE PO SCH ×2 (07:37→19:42)
[2018-10-30] MEDS: amLODIPine 5mg tablet PO SCH ×2 (07:38→16:10)
[2018-10-30] MEDS: heparin, porcine 5000 units/ml vial SQ SCH ×2 (07:39→19:42)
[2018-10-30 11:17] VITALS: BP 168/88
[2018-10-30 18:00] VITALS: BP 178/85
--- NOTE | 2018-10-30 18:15 | NUR ---
Problems reprioritized. Patient report given, questions answered & plan of care reviewed with Rupa Armstrong RN.
--- NOTE | 2018-10-30 18:36 | NUR ---
Patient in room [facility]. I have received report from PATRICIA MICHEL and had the opportunity to ask questions and assume patient care. Addendum: 10/30/18 at 1836 by Marlee Lynch RN Amended: Links added.
[2018-10-30] MEDS: insulin glargine (Lantus) pen - multi-dose SQ SCH (21:00)
[2018-10-30] MEDS: hydrALAZINE 20mg/ml inj. IV PRN (22:23)
[2018-10-31 01:09] VITALS: BP 150/67
--- NOTE | 2018-10-31 06:25 | NUR ---
Problems reprioritized. Patient report given, questions answered & plan of care reviewed with PATRICIA [place].
--- NOTE | 2018-10-31 06:40 | NUR ---
Patient in room [facility] 344. I have received report from JASPER Perez RN and had the opportunity to ask questions and assume patient care.
[2018-10-31 07:00] VITALS: BP 157/86
[2018-10-31] MEDS: metroNIDAZOLE 500mg tablet PO SCH ×3 (07:49→23:26)
[2018-10-31] MEDS: heparin, porcine 5000 units/ml vial SQ SCH ×2 (07:49→20:18)
[2018-10-31] MEDS: CefTRIAXone 2gm/D5W 50ml 50 ML IV SCH (07:49)
[2018-10-31] MEDS: lactobacillus rhamnosus 10,000 MMU CELLS/CAPSULE PO SCH ×2 (07:49→20:17)
[2018-10-31] MEDS: amLODIPine 5mg tablet PO SCH (07:49)
[2018-10-31 11:00] VITALS: BP 156/78
[2018-10-31 18:00] VITALS: BP 159/71
--- NOTE | 2018-10-31 18:30 | NUR ---
Patient in room [facility]. I have received report from Valencia GOMEZ and had the opportunity to ask questions and assume patient care. Patient resting in bed, finished dinner, will continue to monitor.
[2018-10-31] MEDS: insulin glargine (Lantus) pen - multi-dose SQ SCH (20:16)
[2018-11-01] VITALS: BP 150/67
--- NOTE | 2018-11-01 06:10 | NUR ---
Patient in room [facility]. I have received report from PATRICIA Mackay and had the opportunity to ask questions and assume patient care.
[2018-11-01 06:30] VITALS: BP 157/84
--- NOTE | 2018-11-01 06:51 | NUR ---
Problems reprioritized. Patient report given, questions answered & plan of care reviewed with Amaya. Resting eyes closed respirations even.
[2018-11-01] MEDS: lactobacillus rhamnosus 10,000 MMU CELLS/CAPSULE PO SCH ×2 (08:21→20:22)
[2018-11-01] MEDS: heparin, porcine 5000 units/ml vial SQ SCH ×2 (08:21→20:22)
[2018-11-01] MEDS: metroNIDAZOLE 500mg tablet PO SCH ×2 (08:21→16:04)
[2018-11-01] MEDS: CefTRIAXone 2gm/D5W 50ml 50 ML IV SCH (08:21)
[2018-11-01] MEDS: amLODIPine 5mg tablet PO SCH (08:21)
[2018-11-01 10:47] LABS: BASOPHILS # (AUTO) 0.1 X10'3 (0-0.2); BASOPHILS % (AUTO) 0.7 % (0-1); EOSINOPHILS # (AUTO) 0.1 X10'3 (0-0.9); EOSINOPHILS % (AUTO) 1.8 % (0-6); HEMATOCRIT 27.5 % (42.0-52.0); HEMOGLOBIN 9.1 g/dl (14.0-17.9); LYMPHOCYTES # (AUTO) 1.5 X10'3 (1.1-4.8); LYMPHOCYTES % (AUTO) 20.2 % (21-51); MEAN CORPUSCULAR HEMOGLOBIN 30.5 PG (27.0-31.0); MEAN CORPUSCULAR VOLUME 92.2 FL (78-98); MEAN PLATELET VOLUME 7.1 FL (7.4-10.4); MONOCYTES # (AUTO) 0.5 X10'3 (0-0.9); MONOCYTES % (AUTO) 7.1 % (2-12); NEUTROPHILS # (AUTO) 5.3 X10'3 (1.8-7.7); NEUTROPHILS % (AUTO) 70.2 % (42-75); PLATELET COUNT 478 X10'3 (140-440); RED BLOOD COUNT 2.98 X10'6 (4.70-6.10); RED CELL DISTRIBUTION WIDTH 18.1 % (11.5-14.5); WHITE BLOOD COUNT 7.6 X10'3 (4.5-11.0)
[2018-11-01 10:54] LABS: ANION GAP 9 (8-16); BLOOD UREA NITROGEN 33 MG/DL (7-18); BUN/CREATININE RATIO 11.7 (5.4-32.0); CALCIUM 8.3 MG/DL (8.5-10.1); CHLORIDE 104 MMOL/L (99-107); CREATININE 2.83 MG/DL (0.60-1.10); GLUCOSE 123 MG/DL (70-104); POTASSIUM 4.2 MMOL/L (3.5-5.1); SODIUM 134 MMOL/L (135-145); TOTAL CARBON DIOXIDE 21.4 MMOL/L (24-32); eGFR 23 ML/MIN
[2018-11-01 11:08] VITALS: BP 152/79
--- NOTE | 2018-11-01 15:40 | NUR ---
reassessment: Pt PO 75-100% meals post-op meeting protein/kcal needs. [facility] 10/30. Will continue to monitor. Rec: 1. continue carb controlled diet 2. MVI for wounds 3. routine bowel care 4. wt per rx Addendum: 11/01/18 at [address] Amended: Links added.
--- NOTE | 2018-11-01 18:05 | NUR ---
Problems reprioritized. Patient report given, questions answered & plan of care reviewed with PATRICIA Cruz.
--- NOTE | 2018-11-01 18:13 | NUR ---
Patient in room [facility]. I have received report from Amaya Farias and had the opportunity to ask questions and assume patient care. Addendum: 11/01/18 at 1814 by Nancy Galvez RN Amended: Links added.
--- NOTE | 2018-11-01 19:30 | NUR ---
po hs po meds teaching done with the pt. no complaints at this time.
[2018-11-01 20:00] VITALS: BP 148/61
--- NOTE | 2018-11-01 21:30 | NUR ---
pt watching tv no complaints at this time.
--- NOTE | 2018-11-01 23:30 | NUR ---
pt resting eyes closed without changes. void 920cc med yellow urine.
[2018-11-02] VITALS: BP 152/76
[2018-11-02] MEDS: metroNIDAZOLE 500mg tablet PO SCH ×3 (00:31→16:44)
--- NOTE | 2018-11-02 00:47 | NUR ---
pt resting without changes.
--- NOTE | 2018-11-02 02:30 | NUR ---
resting without changes.
--- NOTE | 2018-11-02 03:49 | NUR ---
pt remains resting without changes.
--- NOTE | 2018-11-02 05:23 | NUR ---
awake no complaints noted no changes to wound vac 5cc brown serous fluid out.
--- NOTE | 2018-11-02 06:05 | NUR ---
Patient in room [facility]. I have received report from PATRICIA Cruz and had the opportunity to ask questions and assume patient care.
--- NOTE | 2018-11-02 06:06 | NUR ---
Problems reprioritized. Patient report given, questions answered & plan of care reviewed with Amaya Farias. Addendum: 11/02/18 at 0606 by Nancy Galvez RN Amended: Links added.
[2018-11-02 06:30] VITALS: BP 161/84
[2018-11-02] MEDS: CefTRIAXone 2gm/D5W 50ml 50 ML IV SCH (09:33)
[2018-11-02] MEDS: heparin, porcine 5000 units/ml vial SQ SCH ×2 (09:34→20:32)
[2018-11-02] MEDS: lactobacillus rhamnosus 10,000 MMU CELLS/CAPSULE PO SCH ×2 (09:34→20:32)
[2018-11-02] MEDS: amLODIPine 5mg tablet PO SCH (09:34)
[2018-11-02 11:00] VITALS: BP 140/84
--- NOTE | 2018-11-02 18:10 | NUR ---
Problems reprioritized. Patient report given, questions answered & plan of care reviewed with PATRICIA Cruz.
--- NOTE | 2018-11-02 18:50 | NUR ---
Patient in room [facility] 344. I have received report from Amaya Farias and had the opportunity to ask questions and assume patient care. Addendum: 11/02/18 at 1852 by Nancy Galvez RN Amended: Links added.
--- NOTE | 2018-11-02 19:35 | NUR ---
pt took hs meds no complaints or s&s of distress. good popiteal pulses bilat wound vac without leaks and brown serous drainage noted.
[2018-11-02 20:00] VITALS: BP 154/79
--- NOTE | 2018-11-02 21:00 | NUR ---
resting without changes.
--- NOTE | 2018-11-02 22:59 | NUR ---
resting on side eyes closed without changes.
[2018-11-03] VITALS: BP 152/76
[2018-11-03] MEDS: metroNIDAZOLE 500mg tablet PO SCH ×3 (00:07→16:00)
--- NOTE | 2018-11-03 00:58 | NUR ---
resting eyes closed without changes
--- NOTE | 2018-11-03 02:55 | NUR ---
resting eyes closed without changes.
--- NOTE | 2018-11-03 04:55 | NUR ---
pt resting eyes closed without changes. no drainage from the wound vac.
[2018-11-03 06:30] VITALS: BP 148/77
--- NOTE | 2018-11-03 06:42 | NUR ---
Problems reprioritized. Patient report given, questions answered & plan of care reviewed with Amaya Farias. Addendum: 11/03/18 at 0643 by Nancy Galvez RN Amended: Links added.
--- NOTE | 2018-11-03 06:45 | NUR ---
Patient in room [facility]. I have received report from PATRICIA Cruz and had the opportunity to ask questions and assume patient care.
[2018-11-03] MEDS: lactobacillus rhamnosus 10,000 MMU CELLS/CAPSULE PO SCH ×2 (08:37→19:55)
[2018-11-03] MEDS: CefTRIAXone 2gm/D5W 50ml 50 ML IV SCH (08:37)
[2018-11-03] MEDS: amLODIPine 5mg tablet PO SCH (08:38)
[2018-11-03] MEDS: heparin, porcine 5000 units/ml vial SQ SCH ×2 (08:38→19:55)
[2018-11-03 11:00] VITALS: BP 159/78
[2018-11-03] MEDS: metoprolol succinate 25mg (24-HOUR) SR. Tablet PO SCH (11:44)
--- NOTE | 2018-11-03 18:20 | NUR ---
Patient in room [facility]. I have received report from Amaya GOMEZ and had the opportunity to ask questions and assume patient care.
--- NOTE | 2018-11-03 18:35 | NUR ---
Problems reprioritized. Patient report given, questions answered & plan of care reviewed with PATRICIA Hernandez.
[2018-11-03 20:00] VITALS: BP 149/71
--- NOTE | 2018-11-03 22:09 | NUR ---
last labs were taken 11/01/18 Addendum: 11/03/18 at 2213 by David Hoff RN Amended: Links added.
[2018-11-04 00:06] VITALS: BP 134/76
[2018-11-04] MEDS: metroNIDAZOLE 500mg tablet PO SCH ×4 (00:35→23:40)
--- NOTE | 2018-11-04 06:20 | NUR ---
Problems reprioritized. Patient report given, questions answered & plan of care reviewed with Lorraine GOMEZ.
[2018-11-04 07:00] VITALS: BP 141/76
[2018-11-04] MEDS: CefTRIAXone 2gm/D5W 50ml 50 ML IV SCH (08:50)
[2018-11-04] MEDS: lactobacillus rhamnosus 10,000 MMU CELLS/CAPSULE PO SCH ×2 (08:51→19:26)
[2018-11-04] MEDS: amLODIPine 5mg tablet PO SCH (08:51)
[2018-11-04] MEDS: heparin, porcine 5000 units/ml vial SQ SCH ×2 (08:51→19:28)
[2018-11-04] MEDS: metoprolol succinate 25mg (24-HOUR) SR. Tablet PO SCH (08:51)
[2018-11-04 12:00] VITALS: BP 126/67
--- NOTE | 2018-11-04 18:14 | NUR ---
Patient in room [facility]. I have received report from Lorraine GOMEZ and had the opportunity to ask questions and assume patient care.
[2018-11-04 20:00] VITALS: BP 167/81
[2018-11-05 00:41] VITALS: BP 136/74
--- NOTE | 2018-11-05 06:30 | NUR ---
Patient in room [facility] 344. I have received report from PATRICIA Hernandez and had the opportunity to ask questions and assume patient care.
--- NOTE | 2018-11-05 06:31 | NUR ---
Problems reprioritized. Patient report given, questions answered & plan of care reviewed with Carmen GOMEZ.
[2018-11-05 07:00] VITALS: BP 142/72
[2018-11-05] MEDS: CefTRIAXone 2gm/D5W 50ml 50 ML IV SCH (07:40)
[2018-11-05] MEDS: lactobacillus rhamnosus 10,000 MMU CELLS/CAPSULE PO SCH ×2 (07:41→19:33)
[2018-11-05] MEDS: metroNIDAZOLE 500mg tablet PO SCH ×3 (07:41→23:53)
[2018-11-05] MEDS: metoprolol succinate 25mg (24-HOUR) SR. Tablet PO SCH (07:41)
[2018-11-05] MEDS: amLODIPine 5mg tablet PO SCH (07:42)
[2018-11-05] MEDS: heparin, porcine 5000 units/ml vial SQ SCH ×2 (07:43→19:34)
--- NOTE | 2018-11-05 10:50 | NUR ---
WOUND INFECTION EDUCATION PROVIDED BY WOUND CARE 1. Patient instructed to call their primary doctor, or go the ED immediately if any of the following symptoms occur: * Increased pain in wound * Increase in drainage from the wound * Redness in the skin surrounding the wound * Warmth in the skin surrounding the wound * Bleeding from the wound * Temperature of 101 or greater 2. If any of these occur while in the hospital tell a nurse immediately. Addendum: 11/05/18 at 1051 by Elida Apodaca RN Amended: Links added.
[2018-11-05 11:00] VITALS: BP 141/74
[2018-11-05 18:00] VITALS: BP 147/69
--- NOTE | 2018-11-05 18:23 | NUR ---
Problems reprioritized. Patient report given, questions answered & plan of care reviewed with PATRICIA Hernandez.
--- NOTE | 2018-11-05 18:46 | NUR ---
Patient in room [facility]. I have received report from Lisa GOMEZ and had the opportunity to ask questions and assume patient care.
[2018-11-06] VITALS: BP 124/79
[2018-11-06 04:03] LABS: BASOPHILS # (AUTO) 0.1 X10'3 (0-0.2); BASOPHILS % (AUTO) 1.1 % (0-1); EOSINOPHILS # (AUTO) 0.2 X10'3 (0-0.9); EOSINOPHILS % (AUTO) 2.7 % (0-6); HEMATOCRIT 26.6 % (42.0-52.0); HEMOGLOBIN 8.8 g/dl (14.0-17.9); LYMPHOCYTES # (AUTO) 1.7 X10'3 (1.1-4.8); LYMPHOCYTES % (AUTO) 30.1 % (21-51); MEAN CORPUSCULAR HEMOGLOBIN 30.7 PG (27.0-31.0); MEAN CORPUSCULAR HGB CONC 33.2 g/dL (33.0-36.5); MEAN CORPUSCULAR VOLUME 92.6 FL (78-98); MEAN PLATELET VOLUME 6.9 FL (7.4-10.4); MONOCYTES # (AUTO) 0.5 X10'3 (0-0.9); MONOCYTES % (AUTO) 8.2 % (2-12); NEUTROPHILS # (AUTO) 3.2 X10'3 (1.8-7.7); NEUTROPHILS % (AUTO) 57.9 % (42-75); PLATELET COUNT 369 X10'3 (140-440); RED BLOOD COUNT 2.87 X10'6 (4.70-6.10); RED CELL DISTRIBUTION WIDTH 17.9 % (11.5-14.5); WHITE BLOOD COUNT 5.6 X10'3 (4.5-11.0)
[2018-11-06 04:05] LABS: ALBUMIN 2.1 G/DL (3.4-5.0); ANION GAP 4 (8-16); BLOOD UREA NITROGEN 42 MG/DL (7-18); BUN/CREATININE RATIO 16.2 (5.4-32.0); CALCIUM 8.3 MG/DL (8.5-10.1); CHLORIDE 105 MMOL/L (99-107); GLUCOSE 96 MG/DL (70-104); POTASSIUM 4.5 MMOL/L (3.5-5.1); SODIUM 134 MMOL/L (135-145); TOTAL CARBON DIOXIDE 24.7 MMOL/L (24-32); eGFR 26 ML/MIN
--- NOTE | 2018-11-06 06:09 | NUR ---
Problems reprioritized. Patient report given, questions answered & plan of care reviewed with Carmen GOMEZ.
--- NOTE | 2018-11-06 06:15 | NUR ---
Patient in room [facility] 344. I have received report from PATRICIA Hernandez and had the opportunity to ask questions and assume patient care.
[2018-11-06 07:00] VITALS: BP 160/77
[2018-11-06] MEDS: lactobacillus rhamnosus 10,000 MMU CELLS/CAPSULE PO SCH ×2 (07:39→19:00)
[2018-11-06] MEDS: metoprolol succinate 25mg (24-HOUR) SR. Tablet PO SCH (07:39)
[2018-11-06] MEDS: metroNIDAZOLE 500mg tablet PO SCH ×3 (07:39→23:02)
[2018-11-06] MEDS: CefTRIAXone 2gm/D5W 50ml 50 ML IV SCH (07:39)
[2018-11-06] MEDS: amLODIPine 5mg tablet PO SCH (07:39)
[2018-11-06] MEDS: heparin, porcine 5000 units/ml vial SQ SCH ×2 (07:40→19:06)
[2018-11-06 11:00] VITALS: BP 150/83
--- NOTE | 2018-11-06 18:22 | NUR ---
Problems reprioritized. Patient report given, questions answered & plan of care reviewed with PATRICIA Owusu .
--- NOTE | 2018-11-06 18:30 | NUR ---
Patient in room [facility]. I have received report from Carmen GOMEZ and had the opportunity to ask questions and assume patient care.
[2018-11-06 19:00] VITALS: BP 147/69
[2018-11-06 23:45] VITALS: BP 167/87
[2018-11-07 00:35] VITALS: BP 133/68
--- NOTE | 2018-11-07 06:32 | NUR ---
Problems reprioritized. Patient report given, questions answered & plan of care reviewed with Lorraine GOMEZ.
[2018-11-07 07:00] VITALS: BP 148/80
[2018-11-07 08:00] VITALS: BP 148/80
[2018-11-07] MEDS: amLODIPine 5mg tablet PO SCH (08:27)
[2018-11-07] MEDS: CefTRIAXone 2gm/D5W 50ml 50 ML IV SCH (08:27)
[2018-11-07] MEDS: metroNIDAZOLE 500mg tablet PO SCH ×2 (08:27→16:04)
[2018-11-07] MEDS: metoprolol succinate 25mg (24-HOUR) SR. Tablet PO SCH (08:27)
[2018-11-07] MEDS: lactobacillus rhamnosus 10,000 MMU CELLS/CAPSULE PO SCH ×2 (08:27→19:01)
[2018-11-07] MEDS: heparin, porcine 5000 units/ml vial SQ SCH ×2 (08:27→19:01)
[2018-11-07 11:00] VITALS: BP 152/78
--- NOTE | 2018-11-07 11:09 | NUR ---
Reassessment: Pt continues with 75-100% PO intake on CHO controlled diet likely meeting nutrient needs. LBM 11/06. CM working on placement per MD notes. Will continue to follow. Rec: 1. continue carb controlled diet 2. MVI for wounds 3. routine bowel care 4. wt per rx Addendum: 11/07/18 at [address] Amended: Links added.
--- NOTE | 2018-11-07 18:05 | NUR ---
Patient in room [facility]. I have received report from Lorraine GOMEZ and had the opportunity to ask questions and assume patient care.
[2018-11-07 19:00] VITALS: BP 149/75
[2018-11-08] VITALS: BP 148/78
[2018-11-08] MEDS: metroNIDAZOLE 500mg tablet PO SCH ×4 (00:25→23:58)
--- NOTE | 2018-11-08 06:25 | NUR ---
Problems reprioritized. Patient report given, questions answered & plan of care reviewed with Lorraine GOMEZ.
[2018-11-08 07:00] VITALS: BP 147/78
[2018-11-08] MEDS: CefTRIAXone 2gm/D5W 50ml 50 ML IV SCH (07:48)
[2018-11-08] MEDS: amLODIPine 5mg tablet PO SCH (07:51)
[2018-11-08] MEDS: lactobacillus rhamnosus 10,000 MMU CELLS/CAPSULE PO SCH ×2 (07:51→20:40)
[2018-11-08] MEDS: metoprolol succinate 25mg (24-HOUR) SR. Tablet PO SCH (07:51)
[2018-11-08] MEDS: heparin, porcine 5000 units/ml vial SQ SCH ×2 (07:53→20:40)
[2018-11-08 12:00] VITALS: BP 123/66
[2018-11-08 18:00] VITALS: BP 140/70
--- NOTE | 2018-11-08 18:40 | NUR ---
Patient in room [facility]. I have received report from PATRCIIA Peters and had the opportunity to ask questions and assume patient care.
[2018-11-09] VITALS: BP 152/78
--- NOTE | 2018-11-09 06:32 | NUR ---
Problems reprioritized. Patient report given, questions answered & plan of care reviewed with PATRICIA Peters.
[2018-11-09 07:00] VITALS: BP 143/80
[2018-11-09] MEDS: metoprolol succinate 25mg (24-HOUR) SR. Tablet PO SCH (08:10)
[2018-11-09] MEDS: amLODIPine 5mg tablet PO SCH (08:11)
[2018-11-09] MEDS: lactobacillus rhamnosus 10,000 MMU CELLS/CAPSULE PO SCH ×2 (08:11→19:16)
[2018-11-09] MEDS: heparin, porcine 5000 units/ml vial SQ SCH ×2 (08:11→19:17)
[2018-11-09] MEDS: CefTRIAXone 2gm/D5W 50ml 50 ML IV SCH (08:13)
[2018-11-09] MEDS: metroNIDAZOLE 500mg tablet PO SCH ×3 (08:16→23:50)
[2018-11-09 11:00] VITALS: BP 118/64
[2018-11-09 18:00] VITALS: BP 132/91
--- NOTE | 2018-11-09 18:19 | NUR ---
Patient in room [facility]. I have received report from PATRICIA Peters and had the opportunity to ask questions and assume patient care.
[2018-11-09 23:52] VITALS: BP 124/62
--- NOTE | 2018-11-10 06:34 | NUR ---
Problems reprioritized. Patient report given, questions answered & plan of care reviewed with PATRICIA Doe.
--- NOTE | 2018-11-10 06:36 | NUR ---
Patient in room [facility]. I have received report from Radha GOMEZ and had the opportunity to ask questions and assume patient care.
--- NOTE | 2018-11-10 06:38 | NUR ---
Patient sleeping, chest rising and falling, WV in tact no yanira. Addendum: 11/10/18 at 0638 by Brook Samuel RN Amended: Links added.
[2018-11-10 06:48] VITALS: BP 139/66
[2018-11-10] MEDS: lactobacillus rhamnosus 10,000 MMU CELLS/CAPSULE PO SCH ×2 (07:28→19:55)
[2018-11-10] MEDS: metroNIDAZOLE 500mg tablet PO SCH ×3 (07:28→23:59)
[2018-11-10] MEDS: metoprolol succinate 25mg (24-HOUR) SR. Tablet PO SCH (07:29)
[2018-11-10] MEDS: CefTRIAXone 2gm/D5W 50ml 50 ML IV SCH (07:29)
[2018-11-10] MEDS: amLODIPine 5mg tablet PO SCH (07:29)
[2018-11-10] MEDS: heparin, porcine 5000 units/ml vial SQ SCH ×2 (07:30→19:56)
[2018-11-10 11:51] VITALS: BP 137/70
--- NOTE | 2018-11-10 14:04 | NUR ---
WOUND INFECTION EDUCATION PROVIDED BY WOUND CARE 1. Patient instructed to call their primary doctor, or go the ED immediately if any of the following symptoms occur: * Increased pain in wound * Increase in drainage from the wound * Redness in the skin surrounding the wound * Warmth in the skin surrounding the wound * Bleeding from the wound * Temperature of 101 or greater 2. If any of these occur while in the hospital tell a nurse immediately. WOUND VAC EDUCATION PROVIDED BY WOUND CARE 1. Patient instructed to call the Wound Center or their Home Health Agency immediately if: * They notice a change in the color or amount of the fluid in the canister. * Their wound looks more red than usual or has a foul smell. * The skin around their wound looks reddened or irritated. * The dressing feels loose or appears to be loose. * They experience any increase or changes in their pain. * The alarm will not turn off. 2. Patient instructed that they should not be disconnected from suction for more than 2 hours at a time. * If they are not able to get the suction back on, they need to remove the dressing and take all of the foam out of the wound. * Then moisten sterile gauze with normal saline and place on/in the wound. * Change the dressing once a day until arrangements have been made to replace the wound vac dressing. 3. Patient instructed to turn the wound vac machine OFF and call 911 or go to the ED immediately if their canister fills rapidly with blood. 4. If any of these occur while in the hospital tell a nurse immediately. Addendum: 11/10/18 at 1405 by Elida Apodaca RN Amended: Links added.
--- NOTE | 2018-11-10 18:00 | NUR ---
Patient in room [facility]. I have received report from Brook GOMEZ and had the opportunity to ask questions and assume patient care.
[2018-11-10 20:00] VITALS: BP 153/76
[2018-11-11] VITALS: BP 145/82
[2018-11-11 04:44] LABS: HEMATOCRIT 23.8 % (42.0-52.0); MEAN CORPUSCULAR HEMOGLOBIN 31.4 PG (27.0-31.0); MEAN CORPUSCULAR HGB CONC 33.6 g/dL (33.0-36.5); MEAN CORPUSCULAR VOLUME 93.5 FL (78-98); MEAN PLATELET VOLUME 6.7 FL (7.4-10.4); PLATELET COUNT 277 X10'3 (140-440); RED BLOOD COUNT 2.55 X10'6 (4.70-6.10); RED CELL DISTRIBUTION WIDTH 18.8 % (11.5-14.5); WHITE BLOOD COUNT 5.4 X10'3 (4.5-11.0)
--- NOTE | 2018-11-11 06:23 | NUR ---
Problems reprioritized. Patient report given, questions answered & plan of care reviewed with Brook GOMEZ.
--- NOTE | 2018-11-11 06:28 | NUR ---
Agree with care and charting observed by Ash Mckeon RN.
--- NOTE | 2018-11-11 06:49 | NUR ---
Patient in room [facility]. I have received report from Codie GOMEZ and had the opportunity to ask questions and assume patient care.
[2018-11-11 06:55] VITALS: BP 121/63
[2018-11-11] MEDS: CefTRIAXone 2gm/D5W 50ml 50 ML IV SCH (07:16)
[2018-11-11] MEDS: heparin, porcine 5000 units/ml vial SQ SCH (07:20)
[2018-11-11] MEDS: metoprolol succinate 25mg (24-HOUR) SR. Tablet PO SCH (07:20)
[2018-11-11] MEDS: lactobacillus rhamnosus 10,000 MMU CELLS/CAPSULE PO SCH (07:20)
[2018-11-11] MEDS: metroNIDAZOLE 500mg tablet PO SCH ×2 (07:20→15:03)
[2018-11-11] MEDS: amLODIPine 5mg tablet PO SCH (07:21)
--- NOTE | 2018-11-11 11:05 | NUR ---
Nutrition consult re: wounds and DM. Pt already seen by [facility] and provided with written and verbal protein and DM ed. Pt with documented 75-100% PO intake meeting nutrient needs. No further ed warranted at this time. Will continue to follow. Addendum: 11/11/18 at [address] Amended: Links added.
[2018-11-11] MEDS ORDERED: NOR5T PO (13:43)
[2018-11-11] MEDS ORDERED: METO-395 PO (13:43)
[2018-11-11] MEDS ORDERED: LEVO250T58 PO (13:43)
[2018-11-11] MEDS ORDERED: METR500T PO (13:43)
--- NOTE | 2018-11-11 15:04 | NUR ---
Patient discharged on nursing end, [facility] bedside delivery completed. All education completed. Dr. Bella number provided for patient to follow up. Wound care supplies provided for patient to care for wound until follow up. Patient has all belongings. Medications obtained from pharmacy. MRSA swab completed for 21 day stay.
--- NOTE | 2018-11-11 15:07 | NUR ---
Patient is waiting [facility] care [facility], setting ride up will be completed by CM.
--- NOTE | 2018-11-11 15:20 | NUR ---
Patient provided with food for dinner at discharge.
--- NOTE | 2018-11-11 15:44 | NUR ---
Patient discharged. WC to lobby for [facility] to provide transport [facility].
== END 2018-11-11 15:45 | disposition home or self-care (01) | DRG 305 ==
LOC: ER 13:30 → SUR 3N 16:35 → CMPBEDREQ 21:42
PROVIDERS: ADMIT Family Medicine; ATTEND Family Medicine
PROC: 0Y6N0ZB Detachment at Left Foot, Partial 2nd Ray, Open Approach (ICD-10-PCS; 2018-10-23)
PROC: 0Y6N0ZC Detachment at Left Foot, Partial 3rd Ray, Open Approach (ICD-10-PCS; 2018-10-23)
PROC: 0Y6N0ZD Detachment at Left Foot, Partial 4th Ray, Open Approach (ICD-10-PCS; 2018-10-23)
PROC: 0Y6N0ZF Detachment at Left Foot, Partial 5th Ray, Open Approach (ICD-10-PCS; 2018-10-23)
PROC: 30233N1 Transfusion of Nonautologous Red Blood Cells into Peripheral Vein, Percutaneous Approach (ICD-10-PCS; 2018-10-23)
PROC: 0Y6N0Z9 Detachment at Left Foot, Partial 1st Ray, Open Approach (ICD-10-PCS; principal; 2018-10-23 11:45)
PROC: 30233N1 Transfusion of Nonautologous Red Blood Cells into Peripheral Vein, Percutaneous Approach (ICD-10-PCS; 2018-10-25)
PROC: 4A02X4A Measurement of Cardiac Electrical Activity, Guidance, External Approach (ICD-10-PCS; 2018-10-28)
PROC: 02HV33Z Insertion of Infusion Device into Superior Vena Cava, Percutaneous Approach (ICD-10-PCS; 2018-10-28)
PROC: B548ZZA Ultrasonography of Superior Vena Cava, Guidance (ICD-10-PCS; 2018-10-28)
DX: E11.69 Type 2 diabetes mellitus with other specified complication (principal); E11.22 Type 2 diabetes mellitus with diabetic chronic kidney disease; N17.9 Acute kidney failure, unspecified; M86.472 Chronic osteomyelitis with draining sinus, left ankle and foot; E87.1 Hypo-osmolality and hyponatremia; N18.4 Chronic kidney disease, stage 4 (severe); E11.52 Type 2 diabetes mellitus with diabetic peripheral angiopathy with gangrene; E11.65 Type 2 diabetes mellitus with hyperglycemia; E11.42 Type 2 diabetes mellitus with diabetic polyneuropathy; E11.621 Type 2 diabetes mellitus with foot ulcer; L03.116 Cellulitis of left lower limb; D63.8 Anemia in other chronic diseases classified elsewhere; E11.628 Type 2 diabetes mellitus with other skin complications; Z60.2 Problems related to living alone; B95.4 Other streptococcus as the cause of diseases classified elsewhere; L02.612 Cutaneous abscess of left foot; L97.529 Non-pressure chronic ulcer of other part of left foot with unspecified severity; I13.10 Hypertensive heart and chronic kidney disease without heart failure, with stage 1 through stage 4 chronic kidney disease, or unspecified chronic kidney disease; Z89.511 Acquired absence of right leg below knee; Z89.012 Acquired absence of left thumb; Z90.49 Acquired absence of other specified parts of digestive tract; Z89.422 Acquired absence of other left toe(s)
CPT/HCPCS: 36415; 36569; 36600; 71045; 73630; 73718; 76937; 80047; 80048; 80053; 80202; 81001; 82803; 82948; 83605; 84145; 85018; 85025; 85027; 85610; 86885; 86900; 86901; 86920; 87040; 87070; 87077; 87081; 87186; 93005; 97110; 97162; 97530; 99285; A6449; A7000; G0378; J0360; J0692; J0696; J1170; J1644; J1815; J2001; J2250; J2405; J2543; J2704; J3010; J3370; J3490; J7030; J7120; P9016

== ENCOUNTER 2018-11-19 09:15 | Day surgery (SDC) | payer MEDICAID ==
[~2018-11-19 09:15] MED LIST changes: -ATOR20TA66 PO; -CARV-50 PO; -INSU100V11 SQ; +LEVO250T58 PO; +METO-395 PO; +METR500T PO; +NOR5T PO
--- NOTE | 2018-11-19 15:11 | NUR ---
Patient arrived safely into lobby via wheelchair. Patient admitted to outpatient wound care for physician visit with Mike Rousseau MD. Dressing removed, wound cleansed and patient assessed for changes in conditions, medications and medical history. Patient recently discharged from hospital for Left TMA. Dr. Rousseau at bedside accompanied by RN. Wound assessed, time out performed by MD/RN. Wound debrided as detailed in the physician progress/procedure note. Plan of care discussed with patient. Dressings placed per MD orders. Patient instructed on the signs and symptoms of infection and to call the Wound Center if any occur or to go to the ED if we are closed: Increased pain in wound Increase in drainage from the wound Redness in the skin surrounding the wound Bleeding from the wound Temperature of 101 or greater Patient instructed that elevated blood sugars delay healing of the wound and can cause further complications including but not limited to amputation of toes or feet. Patient instructed that the weight of their body puts a large amount of pressure on their wounds. This pressure keeps the new tissue from growing and inhibits new blood vessels from forming. Explained that, if they continue to bear weight on a body part that has a wound, the time it takes to heal the wound increases, the wound may get worse or the wound may not heal at all. Patient verbalized understanding of all discharge instructions and plan of care. Patient left in stable condition with no sign or symptom of distress at time of discharge. Addendum: 11/19/18 at 1516 by Marie Ch RN Amended: Links added.
== END 2018-11-19 11:59 | disposition home or self-care (01) ==
LOC: WOUND CARE 09:15
PROVIDERS: ATTEND Surgery
DX: T87.89 Other complications of amputation stump (principal); E11.621 Type 2 diabetes mellitus with foot ulcer; L97.522 Non-pressure chronic ulcer of other part of left foot with fat layer exposed; L97.511 Non-pressure chronic ulcer of other part of right foot limited to breakdown of skin; E11.22 Type 2 diabetes mellitus with diabetic chronic kidney disease; I13.2 Hypertensive heart and chronic kidney disease with heart failure and with stage 5 chronic kidney disease, or end stage renal disease; I50.9 Heart failure, unspecified; N18.6 End stage renal disease; L84 Corns and callosities; E78.5 Hyperlipidemia, unspecified; H54.8 Legal blindness, as defined in USA; E11.69 Type 2 diabetes mellitus with other specified complication; M86.8X7 Other osteomyelitis, ankle and foot; E11.42 Type 2 diabetes mellitus with diabetic polyneuropathy; E11.65 Type 2 diabetes mellitus with hyperglycemia; E11.319 Type 2 diabetes mellitus with unspecified diabetic retinopathy without macular edema; I87.2 Venous insufficiency (chronic) (peripheral); M86.679 Other chronic osteomyelitis, unspecified ankle and foot; F19.10 Other psychoactive substance abuse, uncomplicated; Z89.012 Acquired absence of left thumb; Z89.9 Acquired absence of limb, unspecified; Z90.49 Acquired absence of other specified parts of digestive tract; Z89.021 Acquired absence of right finger(s); Z68.27 Body mass index [BMI] 27.0-27.9, adult; Z79.899 Other long term (current) drug therapy; Z86.718 Personal history of other venous thrombosis and embolism; Z79.4 Long term (current) use of insulin; Y83.5 Amputation of limb(s) as the cause of abnormal reaction of the patient, or of later complication, without mention of misadventure at the time of the procedure
CPT/HCPCS: 11042; 36416; 82948; A6209; A4663; A6021; A6154; A6446

== ENCOUNTER 2019-07-13 10:37 | Outpatient (CLI) | payer MEDICAID ==
[~2019-07-13 10:37] MED LIST changes: -LEVO250T58 PO
== END 2019-07-13 12:27 | disposition home or self-care (01) ==
LOC: WOUND CARE 10:37
PROVIDERS: ATTEND Surgery
DX: T87.89 Other complications of amputation stump (principal); E11.40 Type 2 diabetes mellitus with diabetic neuropathy, unspecified; E11.65 Type 2 diabetes mellitus with hyperglycemia; E11.22 Type 2 diabetes mellitus with diabetic chronic kidney disease; I13.2 Hypertensive heart and chronic kidney disease with heart failure and with stage 5 chronic kidney disease, or end stage renal disease; D63.1 Anemia in chronic kidney disease; N18.6 End stage renal disease; I50.22 Chronic systolic (congestive) heart failure; E11.69 Type 2 diabetes mellitus with other specified complication; M86.472 Chronic osteomyelitis with draining sinus, left ankle and foot; M86.671 Other chronic osteomyelitis, right ankle and foot; E11.42 Type 2 diabetes mellitus with diabetic polyneuropathy; E11.319 Type 2 diabetes mellitus with unspecified diabetic retinopathy without macular edema; E11.52 Type 2 diabetes mellitus with diabetic peripheral angiopathy with gangrene; I87.2 Venous insufficiency (chronic) (peripheral); L84 Corns and callosities; E78.5 Hyperlipidemia, unspecified; H54.8 Legal blindness, as defined in USA; F19.10 Other psychoactive substance abuse, uncomplicated; Z86.718 Personal history of other venous thrombosis and embolism; Z89.422 Acquired absence of other left toe(s); Z79.899 Other long term (current) drug therapy; Z79.4 Long term (current) use of insulin; Z89.012 Acquired absence of left thumb; Z90.49 Acquired absence of other specified parts of digestive tract; Z89.021 Acquired absence of right finger(s); Z68.27 Body mass index [BMI] 27.0-27.9, adult; Y83.5 Amputation of limb(s) as the cause of abnormal reaction of the patient, or of later complication, without mention of misadventure at the time of the procedure
CPT/HCPCS: 36416; 82948; G0463; A4663

== ENCOUNTER 2019-12-22 08:40 | Day surgery (SDC) | payer MEDICAID ==
[2019-12-22] MEDS ORDERED: LIDOcaine 2% 5ml jelly ONE (09:21)
[2019-12-22 11:18] LABS: BASOPHILS # (AUTO) 0.1 X10'3 (0-0.2); BASOPHILS % (AUTO) 1.1 % (0-1); EOSINOPHILS # (AUTO) 0.1 X10'3 (0-0.9); EOSINOPHILS % (AUTO) 0.8 % (0-6); HEMATOCRIT 24.6 % (42.0-52.0); LYMPHOCYTES # (AUTO) 1.2 X10'3 (1.1-4.8); LYMPHOCYTES % (AUTO) 19.4 % (21-51); MEAN CORPUSCULAR HEMOGLOBIN 30.1 PG (27.0-31.0); MEAN CORPUSCULAR HGB CONC 32.7 g/dL (33.0-36.5); MEAN CORPUSCULAR VOLUME 92.2 FL (78-98); MONOCYTES # (AUTO) 0.4 X10'3 (0-0.9); MONOCYTES % (AUTO) 6.9 % (2-12); NEUTROPHILS # (AUTO) 4.5 X10'3 (1.8-7.7); NEUTROPHILS % (AUTO) 71.8 % (42-75); PLATELET COUNT 376 X10'3 (140-440); RED BLOOD COUNT 2.67 X10'6 (4.70-6.10); RED CELL DISTRIBUTION WIDTH 14.3 % (11.5-14.5); WHITE BLOOD COUNT 6.3 X10'3 (4.5-11.0)
[2019-12-22 11:31] LABS: HEMOGLOBIN A1C 6.8 % (4.5-6.2)
[2019-12-22 11:33] LABS: ALANINE AMINOTRANSFERASE 8 U/L (12-78); ALBUMIN 2.9 G/DL (3.4-5.0); ALBUMIN/GLOBULIN RATIO 0.5 (1.1-1.5); ALKALINE PHOSPHATASE 39 IU/L (46-116); ANION GAP 12 (8-16); ASPARTATE AMINO TRANSFERASE 10 U/L (10-37); BILIRUBIN,TOTAL 0.4 MG/DL (0.1-1.0); BLOOD UREA NITROGEN 33 MG/DL (7-18); BUN/CREATININE RATIO 5.6 (5.4-32.0); C-REACTIVE PROTEIN 2.15 MG/DL (0.0-0.5); CALCIUM 8.7 MG/DL (8.5-10.1); CHLORIDE 105 MMOL/L (99-107); CREATININE 5.92 MG/DL (0.60-1.10); GLUCOSE 115 MG/DL (70-104); POTASSIUM 4.8 MMOL/L (3.5-5.1); SODIUM 136 MMOL/L (135-145); TOTAL CARBON DIOXIDE 18.6 MMOL/L (24-32); eGFR 10 ML/MIN
[2019-12-29] MEDS ORDERED: LIDOcaine 2% 5ml jelly ONE (09:11)
== END 2019-12-29 09:44 | disposition home or self-care (01) ==
LOC: WOUND CARE 08:40
PROVIDERS: ATTEND Nurse Practitioner
DX: T87.89 Other complications of amputation stump (principal); E11.40 Type 2 diabetes mellitus with diabetic neuropathy, unspecified; E11.65 Type 2 diabetes mellitus with hyperglycemia; E11.22 Type 2 diabetes mellitus with diabetic chronic kidney disease; I13.2 Hypertensive heart and chronic kidney disease with heart failure and with stage 5 chronic kidney disease, or end stage renal disease; D63.1 Anemia in chronic kidney disease; N18.6 End stage renal disease; I50.22 Chronic systolic (congestive) heart failure; E11.69 Type 2 diabetes mellitus with other specified complication; M86.472 Chronic osteomyelitis with draining sinus, left ankle and foot; M86.671 Other chronic osteomyelitis, right ankle and foot; E11.42 Type 2 diabetes mellitus with diabetic polyneuropathy; E11.319 Type 2 diabetes mellitus with unspecified diabetic retinopathy without macular edema; E11.52 Type 2 diabetes mellitus with diabetic peripheral angiopathy with gangrene; I87.2 Venous insufficiency (chronic) (peripheral); L84 Corns and callosities; E78.5 Hyperlipidemia, unspecified; H54.8 Legal blindness, as defined in USA; F19.10 Other psychoactive substance abuse, uncomplicated; Z86.718 Personal history of other venous thrombosis and embolism; Z89.422 Acquired absence of other left toe(s); Z79.899 Other long term (current) drug therapy; Z79.4 Long term (current) use of insulin; Z89.012 Acquired absence of left thumb; Z90.49 Acquired absence of other specified parts of digestive tract; Z89.021 Acquired absence of right finger(s); Z68.27 Body mass index [BMI] 27.0-27.9, adult; Y83.5 Amputation of limb(s) as the cause of abnormal reaction of the patient, or of later complication, without mention of misadventure at the time of the procedure
CPT/HCPCS: 11042; 11045; 36415; 36416; 80053; 82948; 83036; 85025; 85651; 86140; 87070; 87075; 87077; 87102; 87186; 97597

== ENCOUNTER 2020-01-05 08:32 | Day surgery (SDC) | payer MEDICAID ==
[2020-01-05] MEDS ORDERED: LIDOcaine 2% 5ml jelly ONE (09:14)
== END 2020-01-05 10:10 | disposition home or self-care (01) ==
LOC: WOUND CARE 08:32
PROVIDERS: ATTEND Nurse Practitioner
DX: T87.89 Other complications of amputation stump (principal); E11.621 Type 2 diabetes mellitus with foot ulcer; L97.522 Non-pressure chronic ulcer of other part of left foot with fat layer exposed; E11.40 Type 2 diabetes mellitus with diabetic neuropathy, unspecified; E11.65 Type 2 diabetes mellitus with hyperglycemia; E11.22 Type 2 diabetes mellitus with diabetic chronic kidney disease; I13.2 Hypertensive heart and chronic kidney disease with heart failure and with stage 5 chronic kidney disease, or end stage renal disease; D63.1 Anemia in chronic kidney disease; N18.6 End stage renal disease; I50.22 Chronic systolic (congestive) heart failure; E11.69 Type 2 diabetes mellitus with other specified complication; M86.472 Chronic osteomyelitis with draining sinus, left ankle and foot; M86.671 Other chronic osteomyelitis, right ankle and foot; E11.42 Type 2 diabetes mellitus with diabetic polyneuropathy; E11.319 Type 2 diabetes mellitus with unspecified diabetic retinopathy without macular edema; E11.52 Type 2 diabetes mellitus with diabetic peripheral angiopathy with gangrene; I87.2 Venous insufficiency (chronic) (peripheral); L84 Corns and callosities; E78.5 Hyperlipidemia, unspecified; H54.8 Legal blindness, as defined in USA; F19.10 Other psychoactive substance abuse, uncomplicated; Z86.718 Personal history of other venous thrombosis and embolism; Z89.422 Acquired absence of other left toe(s); Z79.899 Other long term (current) drug therapy; Z79.4 Long term (current) use of insulin; Z89.012 Acquired absence of left thumb; Z90.49 Acquired absence of other specified parts of digestive tract; Z89.021 Acquired absence of right finger(s); Z68.27 Body mass index [BMI] 27.0-27.9, adult; Z89.511 Acquired absence of right leg below knee; Y83.5 Amputation of limb(s) as the cause of abnormal reaction of the patient, or of later complication, without mention of misadventure at the time of the procedure
CPT/HCPCS: 36416; 82948; 97597

== ENCOUNTER 2020-01-12 10:22 | Day surgery (SDC) | payer MEDICAID ==
[2020-01-12] MEDS ORDERED: LIDOcaine 2% 5ml jelly ONE (10:58)
== END 2020-01-12 11:36 | disposition home or self-care (01) ==
LOC: WOUND CARE 10:22
PROVIDERS: ATTEND Nurse Practitioner
DX: T87.89 Other complications of amputation stump (principal); E11.621 Type 2 diabetes mellitus with foot ulcer; L97.522 Non-pressure chronic ulcer of other part of left foot with fat layer exposed; E11.40 Type 2 diabetes mellitus with diabetic neuropathy, unspecified; E11.65 Type 2 diabetes mellitus with hyperglycemia; E11.22 Type 2 diabetes mellitus with diabetic chronic kidney disease; I13.2 Hypertensive heart and chronic kidney disease with heart failure and with stage 5 chronic kidney disease, or end stage renal disease; D63.1 Anemia in chronic kidney disease; N18.6 End stage renal disease; I50.22 Chronic systolic (congestive) heart failure; E11.69 Type 2 diabetes mellitus with other specified complication; M86.472 Chronic osteomyelitis with draining sinus, left ankle and foot; M86.671 Other chronic osteomyelitis, right ankle and foot; E11.42 Type 2 diabetes mellitus with diabetic polyneuropathy; E11.319 Type 2 diabetes mellitus with unspecified diabetic retinopathy without macular edema; E11.52 Type 2 diabetes mellitus with diabetic peripheral angiopathy with gangrene; I87.2 Venous insufficiency (chronic) (peripheral); L84 Corns and callosities; E78.5 Hyperlipidemia, unspecified; F19.10 Other psychoactive substance abuse, uncomplicated; Z86.718 Personal history of other venous thrombosis and embolism; Z89.422 Acquired absence of other left toe(s); Z79.899 Other long term (current) drug therapy; Z79.4 Long term (current) use of insulin; Z89.012 Acquired absence of left thumb; Z90.49 Acquired absence of other specified parts of digestive tract; Z89.021 Acquired absence of right finger(s); Z68.27 Body mass index [BMI] 27.0-27.9, adult; Z89.511 Acquired absence of right leg below knee; Y83.5 Amputation of limb(s) as the cause of abnormal reaction of the patient, or of later complication, without mention of misadventure at the time of the procedure
CPT/HCPCS: 15275; 36416; 82948; Q4196

== ENCOUNTER 2020-01-19 10:25 | Day surgery (SDC) | payer MEDICAID ==
[2020-01-19] MEDS ORDERED: LIDOcaine 2% 5ml jelly ONE (10:30)
== END 2020-01-19 11:55 | disposition home or self-care (01) ==
LOC: WOUND CARE 10:25
PROVIDERS: ATTEND Nurse Practitioner
DX: T87.89 Other complications of amputation stump (principal); E11.621 Type 2 diabetes mellitus with foot ulcer; L97.522 Non-pressure chronic ulcer of other part of left foot with fat layer exposed; E11.40 Type 2 diabetes mellitus with diabetic neuropathy, unspecified; E11.65 Type 2 diabetes mellitus with hyperglycemia; E11.22 Type 2 diabetes mellitus with diabetic chronic kidney disease; I13.2 Hypertensive heart and chronic kidney disease with heart failure and with stage 5 chronic kidney disease, or end stage renal disease; D63.1 Anemia in chronic kidney disease; N18.6 End stage renal disease; I50.22 Chronic systolic (congestive) heart failure; E11.69 Type 2 diabetes mellitus with other specified complication; M86.472 Chronic osteomyelitis with draining sinus, left ankle and foot; M86.471 Chronic osteomyelitis with draining sinus, right ankle and foot; E11.42 Type 2 diabetes mellitus with diabetic polyneuropathy; E11.319 Type 2 diabetes mellitus with unspecified diabetic retinopathy without macular edema; E11.52 Type 2 diabetes mellitus with diabetic peripheral angiopathy with gangrene; I87.2 Venous insufficiency (chronic) (peripheral); L84 Corns and callosities; E78.5 Hyperlipidemia, unspecified; F19.10 Other psychoactive substance abuse, uncomplicated; Z86.718 Personal history of other venous thrombosis and embolism; Z89.422 Acquired absence of other left toe(s); Z79.899 Other long term (current) drug therapy; Z79.4 Long term (current) use of insulin; Z89.012 Acquired absence of left thumb; Z90.49 Acquired absence of other specified parts of digestive tract; Z89.021 Acquired absence of right finger(s); Z68.27 Body mass index [BMI] 27.0-27.9, adult; Z89.511 Acquired absence of right leg below knee; Y83.5 Amputation of limb(s) as the cause of abnormal reaction of the patient, or of later complication, without mention of misadventure at the time of the procedure
CPT/HCPCS: 36416; 82948; 97597

== ENCOUNTER 2020-01-26 09:55 | Day surgery (SDC) | payer MEDICAID ==
[2020-01-26] MEDS ORDERED: LIDOcaine 2% 5ml jelly ONE (10:21)
== END 2020-01-26 11:26 | disposition home or self-care (01) ==
LOC: WOUND CARE 09:55
PROVIDERS: ATTEND Nurse Practitioner
DX: T87.89 Other complications of amputation stump (principal); E11.621 Type 2 diabetes mellitus with foot ulcer; L97.522 Non-pressure chronic ulcer of other part of left foot with fat layer exposed; E11.40 Type 2 diabetes mellitus with diabetic neuropathy, unspecified; E11.65 Type 2 diabetes mellitus with hyperglycemia; E11.22 Type 2 diabetes mellitus with diabetic chronic kidney disease; I13.2 Hypertensive heart and chronic kidney disease with heart failure and with stage 5 chronic kidney disease, or end stage renal disease; D63.1 Anemia in chronic kidney disease; N18.6 End stage renal disease; I50.22 Chronic systolic (congestive) heart failure; E11.69 Type 2 diabetes mellitus with other specified complication; M86.472 Chronic osteomyelitis with draining sinus, left ankle and foot; M86.471 Chronic osteomyelitis with draining sinus, right ankle and foot; E11.42 Type 2 diabetes mellitus with diabetic polyneuropathy; E11.319 Type 2 diabetes mellitus with unspecified diabetic retinopathy without macular edema; E11.52 Type 2 diabetes mellitus with diabetic peripheral angiopathy with gangrene; I87.2 Venous insufficiency (chronic) (peripheral); L84 Corns and callosities; E78.5 Hyperlipidemia, unspecified; F19.10 Other psychoactive substance abuse, uncomplicated; Z86.718 Personal history of other venous thrombosis and embolism; Z89.422 Acquired absence of other left toe(s); Z79.899 Other long term (current) drug therapy; Z79.4 Long term (current) use of insulin; Z89.012 Acquired absence of left thumb; Z90.49 Acquired absence of other specified parts of digestive tract; Z89.021 Acquired absence of right finger(s); Z68.27 Body mass index [BMI] 27.0-27.9, adult; Z89.511 Acquired absence of right leg below knee; Y83.5 Amputation of limb(s) as the cause of abnormal reaction of the patient, or of later complication, without mention of misadventure at the time of the procedure
CPT/HCPCS: 82948; 97597

== ENCOUNTER 2020-01-31 19:42 | Inpatient (IN) | payer MEDICAID ==
[~2020-01-31] VITALS: Ht 190.5 cm; Wt 100.0 kg
[2020-01-31] MEDS ORDERED: temazepam 15mg capsule PO PRN (21:00)
[2020-01-31 21:27] LABS: BASOPHILS % (AUTO) 0.4 % (0-1); EOSINOPHILS % (AUTO) 0.1 % (0-6); HEMATOCRIT 23.6 % (42.0-52.0); HEMOGLOBIN 7.6 g/dl (14.0-17.9); LYMPHOCYTES # (AUTO) 0.4 X10'3 (1.1-4.8); LYMPHOCYTES % (AUTO) 6.1 % (21-51); MEAN CORPUSCULAR HEMOGLOBIN 30.7 PG (27.0-31.0); MEAN CORPUSCULAR HGB CONC 32.4 g/dL (33.0-36.5); MEAN CORPUSCULAR VOLUME 94.6 FL (78-98); MONOCYTES # (AUTO) 0.4 X10'3 (0-0.9); MONOCYTES % (AUTO) 5.4 % (2-12); PLATELET COUNT 270 X10'3 (140-440); RED BLOOD COUNT 2.49 X10'6 (4.70-6.10); WHITE BLOOD COUNT 6.8 X10'3 (4.5-11.0)
[2020-01-31 21:34] LABS: CLARITY,URINE CLEAR (Clear); COLOR,URINE YELLOW (Yellow); GLUCOSE, URINE 100 mg/dl (Neg); KETONES,URINE TRACE mg/dl (Neg); LEUKOCYTE ESTERASE ,URINE NEGATIVE (Neg); NITRITES, URINE NEGATIVE (Neg); OCCULT BLOOD,URINE MODERATE (Neg); PROTEIN,URINE >=300 mg/dl (Neg); UROBILINOGEN,URINE 0.2 E.U/dL (0.2-1.0)
[2020-01-31 21:36] LABS: UA COLLECTION TYPE CLN CATCH MIDSTREAM
[2020-01-31 21:42] LABS: ALANINE AMINOTRANSFERASE 26 U/L (12-78); ALBUMIN/GLOBULIN RATIO 0.6 (1.1-1.5); ALKALINE PHOSPHATASE 88 IU/L (46-116); ANION GAP 14 (8-16); ASPARTATE AMINO TRANSFERASE 13 U/L (10-37); BILIRUBIN,TOTAL 0.6 MG/DL (0.1-1.0); BLOOD UREA NITROGEN 63 MG/DL (7-18); BUN/CREATININE RATIO 9.8 (5.4-32.0); CALCIUM 8.7 MG/DL (8.5-10.1); CHLORIDE 103 MMOL/L (99-107); CREATININE 6.42 MG/DL (0.60-1.10); GLUCOSE 123 MG/DL (70-104); POTASSIUM 5.5 MMOL/L (3.5-5.1); SODIUM 132 MMOL/L (135-145); TOTAL PROTEIN 8.3 G/DL (6.4-8.2); eGFR 9 ML/MIN
[2020-01-31 21:45] LABS: FINE GRANULAR CAST 0-3 /LPF (NEGATIVE); MUCUS STRANDS FEW /LPF (Neg); SQUAMOUS EPITHELIAL CELL,UR FEW /LPF (FEW)
[2020-01-31 21:45] LABS: TOTAL CARBON DIOXIDE 14.8 MMOL/L (24-32)
[2020-01-31 21:47] LABS: HYALINE CASTS 0-3 /LPF (NEGATIVE); YEAST FEW /HPF (NEGATIVE)
[2020-01-31 21:48] LABS: BACTERIA,URINE FEW /HPF (Neg); RBC,URINE 0-2 /HPF (0-2); WBC,URINE NONE SEEN /HPF (0-4)
[2020-01-31] MEDS ORDERED: HYDROcodone/acetaminophen 5mg/325mg tablet PO PRN (22:40)
[2020-01-31] MEDS ORDERED: acetaminophen 325mg tablet PO PRN ×2 (22:40)
[2020-01-31] MEDS ORDERED: magnesium Cl slow-release 64mg tablet PO PRN (22:40)
[2020-01-31] MEDS ORDERED: potassium Cl 20 mEq SR tablet PO PRN ×2 (22:40)
[2020-01-31] MEDS ORDERED: ondansetron/PF 4mg/2ml inj IV PRN (22:40)
[2020-01-31] MEDS ORDERED: morphine 2 MG/ML inj. syringe IV PRN (22:40)
[2020-01-31] MEDS ORDERED: potassium CL 10mEq/100ml bag 100 ML IV PRN ×2 (22:40)
[2020-01-31] MEDS ORDERED: magnesium 2GM in 50ml NS 50 ML IV PRN (22:40)
[2020-01-31] MEDS ORDERED: magnesium 4gm in 100ml NS 100 ML IV PRN (22:40)
[2020-01-31] MEDS ORDERED: mag hydrox/Alum hydrox/simeth 30ml oral suspension PO PRN (22:40)
[2020-01-31] MEDS ORDERED: insulin Lispro (HumaLOG) vial - multi-dose SQ SCH (23:05)
[2020-01-31] MEDS ORDERED: insulin regular, human 10 units/0.1 ml syringe IV ONE (23:05)
[2020-01-31] MEDS ORDERED: MESSAGE TO PHARMACY PO ONE (23:05)
[2020-01-31] MEDS ORDERED: dextrose 50%-water 50ml dispensing syringe IV ONE (23:05)
[2020-01-31] MEDS ORDERED: CefTRIAXone 2gm/D5W 50ml 50 ML IV ONE (23:05)
[2020-01-31] MEDS ORDERED: calcium gluconate inj. 1 GM in normal saline 100ml IV soln 90 ML IV ONE (23:05)
[2020-01-31] MEDS ORDERED: sodium polystyrene sulfonate 15gm/60ml oral suspension PO ONE (23:05)
[2020-01-31] MEDS ORDERED: albuterol 2.5 MG/3 ML nebule NEB ONE (23:05)
[2020-01-31] MEDS ORDERED: glucagon, human recombinant 1mg kit SUBCUT PRN (23:05)
[2020-01-31] MEDS ORDERED: dextrose 50%-water 50ml dispensing syringe IV PRN ×2 (23:05)
[2020-01-31] MEDS ORDERED: dextrose ORAL solution 15 GM/59 ML bottle PO PRN ×2 (23:05)
--- NOTE | 2020-01-31 23:11 | NUR ---
Patient in room . I have received report from RANDALL GOMEZ FROM ED and had the opportunity to ask questions and assume patient care.
[2020-01-31] MEDS ORDERED: calcium gluconate inj. 1 GM in normal saline 100ml IV soln 40 ML IV ONE (23:19)
[2020-01-31] MEDS ORDERED: CALCIUM GLUC 1gm/50ml NACL,iso 50 ML IV ONE (23:25)
[2020-01-31 23:45] VITALS: BP 208/109
[2020-01-31] MEDS: hyDRALAzine 10mg tablet PO SCH (23:55)
[2020-01-31] MEDS: metoprolol tartrate 50mg tablet PO SCH (23:56)
[2020-01-31] MEDS: amLODIPine 5mg tablet PO SCH (23:56)
[2020-02-01] VITALS (9 sets, daily range): BP systolic 138–156; BP diastolic 83–97
[2020-02-01] MEDS: normal saline 1000ml 1,000 ML IV SCH ×2 (00:18→10:30)
--- NOTE | 2020-02-01 01:41 | NUR ---
Rocephin started late d/t y port incompatibility. rocephin is one time dose, cultures were collected in ED per report.
--- NOTE | 2020-02-01 06:36 | NUR ---
Problems reprioritized. Patient report given, questions answered & plan of care reviewed with Kylee GOMEZ.
--- NOTE | 2020-02-01 06:40 | NUR ---
Patient in room PCU 3013. I have received report from Braydon GOMEZ and had the opportunity to ask questions and assume patient care.
[2020-02-01 06:56] LABS: ALANINE AMINOTRANSFERASE 24 U/L (12-78); ALBUMIN 2.7 G/DL (3.4-5.0); ALBUMIN/GLOBULIN RATIO 0.5 (1.1-1.5); ALKALINE PHOSPHATASE 96 IU/L (46-116); ANION GAP 15 (8-16); ASPARTATE AMINO TRANSFERASE 17 U/L (10-37); BILIRUBIN,TOTAL 0.3 MG/DL (0.1-1.0); BLOOD UREA NITROGEN 62 MG/DL (7-18); BUN/CREATININE RATIO 9.4 (5.4-32.0); CALCIUM 8.5 MG/DL (8.5-10.1); CHLORIDE 105 MMOL/L (99-107); CHOL/HDL RATIO 2.4 (0.00-4.99); CHOLESTEROL 90 MG/DL (0-200); GLUCOSE 125 MG/DL (70-104); HDL CHOLESTEROL 38 MG/DL (35-60); LDL CHOLESTEROL 44 MG/DL (50-100); MAGNESIUM 2.2 MG/DL (1.5-2.4); POTASSIUM 5.3 MMOL/L (3.5-5.1); SODIUM 135 MMOL/L (135-145); TOTAL CARBON DIOXIDE 15.2 MMOL/L (24-32); TOTAL PROTEIN 7.7 G/DL (6.4-8.2); TRIGLYCERIDES 58 MG/DL (20-135); eGFR 9 ML/MIN
[2020-02-01 07:00] LABS: BASOPHILS % (AUTO) 0.3 % (0-1); EOSINOPHILS % (AUTO) 0.3 % (0-6); LYMPHOCYTES # (AUTO) 0.5 X10'3 (1.1-4.8); LYMPHOCYTES % (AUTO) 7.7 % (21-51); MEAN CORPUSCULAR HEMOGLOBIN 32.1 PG (27.0-31.0); MEAN CORPUSCULAR HGB CONC 33.7 g/dL (33.0-36.5); MEAN CORPUSCULAR VOLUME 95.3 FL (78-98); MEAN PLATELET VOLUME 7.4 FL (7.4-10.4); MONOCYTES # (AUTO) 0.6 X10'3 (0-0.9); MONOCYTES % (AUTO) 9.4 % (2-12); NEUTROPHILS # (AUTO) 4.9 X10'3 (1.8-7.7); NEUTROPHILS % (AUTO) 82.3 % (42-75); PLATELET COUNT 230 X10'3 (140-440); RED BLOOD COUNT 2.16 X10'6 (4.70-6.10); RED CELL DISTRIBUTION WIDTH 17.1 % (11.5-14.5); WHITE BLOOD COUNT 5.9 X10'3 (4.5-11.0)
[2020-02-01 07:04] LABS: HEMATOCRIT 20.6 % (42.0-52.0); HEMOGLOBIN 6.9 g/dl (14.0-17.9)
--- NOTE | 2020-02-01 07:17 | NUR ---
PAGER ID: [phone] MESSAGE: RE: Room 3013A, Roshan Lara Critical H/H : Hgb: 6.8, Hct: 21.2 Hold Heparin sabrina a.mCiarra? Kylee [facility] [phone]
[2020-02-01] MEDS: K and/or MAG REPLACEMENT MC SCH ×2 (08:00→20:00)
[2020-02-01] MEDS ORDERED: metoprolol succinate 25mg (24-HOUR) SR. Tablet PO SCH (08:00)
[2020-02-01] MEDS: heparin, porcine 5000 units/ml vial SQ SCH ×2 (08:00→19:41)
[2020-02-01] MEDS ORDERED: amLODIPine 5mg tablet PO SCH (08:00)
[2020-02-01] MEDS: amLODIPine 5mg tablet PO SCH (08:02)
[2020-02-01] MEDS: metoprolol tartrate 50mg tablet PO SCH ×2 (08:02→19:40)
[2020-02-01] MEDS: hyDRALAzine 10mg tablet PO SCH ×3 (08:03→16:48)
--- NOTE | 2020-02-01 12:49 | NUR ---
PAGER ID: [phone] MESSAGE: RE: room: [facility], Roshan Lara- PRBCs are ready, are you available to sign blood consent? thank you, Kylee Reilly [phone]
--- NOTE | 2020-02-01 13:18 | NUR ---
PAGER ID: [phone] MESSAGE: 2nd request: RE: room: [facility], Roshan Lara- PRBCs are ready. Need blood consent signed by . thank you, Kylee Reilly [phone]
[2020-02-01] MEDS: sodium bicarbonate (8.4%) inj. 150 MEQ in dextrose 5%-water 1,000 ML IV SCH (17:20)
--- NOTE | 2020-02-01 18:30 | NUR ---
Problems reprioritized. Patient report given, questions answered & plan of care reviewed with Braydon GOMEZ.
--- NOTE | 2020-02-01 18:33 | NUR ---
Patient in room PCU 3013. I have received report from Kylee GOMEZ and had the opportunity to ask questions and assume patient care.
[2020-02-01] MEDS: insulin glargine (Lantus) pen - multi-dose SQ SCH (21:00)
[2020-02-02] MEDS: hyDRALAzine 10mg tablet PO SCH ×4 (00:56→23:26)
[2020-02-02] MEDS: sodium bicarbonate (8.4%) inj. 150 MEQ in dextrose 5%-water 1,000 ML IV SCH ×2 (01:57→12:40)
[2020-02-02 02:00] VITALS: BP 146/86
[2020-02-02 04:23] LABS: BASOPHILS % (AUTO) 0.8 % (0-1); EOSINOPHILS # (AUTO) 0.1 X10'3 (0-0.9); EOSINOPHILS % (AUTO) 3.2 % (0-6); HEMATOCRIT 26.8 % (42.0-52.0); HEMOGLOBIN 8.8 g/dl (14.0-17.9); LYMPHOCYTES # (AUTO) 0.6 X10'3 (1.1-4.8); LYMPHOCYTES % (AUTO) 13.8 % (21-51); MEAN CORPUSCULAR HEMOGLOBIN 30.5 PG (27.0-31.0); MEAN CORPUSCULAR VOLUME 92.3 FL (78-98); MEAN PLATELET VOLUME 7.6 FL (7.4-10.4); MONOCYTES # (AUTO) 0.5 X10'3 (0-0.9); MONOCYTES % (AUTO) 12.5 % (2-12); NEUTROPHILS % (AUTO) 69.7 % (42-75); PLATELET COUNT 228 X10'3 (140-440); RED CELL DISTRIBUTION WIDTH 18.2 % (11.5-14.5); WHITE BLOOD COUNT 4.3 X10'3 (4.5-11.0)
[2020-02-02 04:35] LABS: ALANINE AMINOTRANSFERASE 25 U/L (12-78); ALBUMIN 2.8 G/DL (3.4-5.0); ALBUMIN/GLOBULIN RATIO 0.6 (1.1-1.5); ALKALINE PHOSPHATASE 97 IU/L (46-116); ANION GAP 11 (8-16); ASPARTATE AMINO TRANSFERASE 15 U/L (10-37); BILIRUBIN,TOTAL 0.5 MG/DL (0.1-1.0); BLOOD UREA NITROGEN 60 MG/DL (7-18); BUN/CREATININE RATIO 9.4 (5.4-32.0); CHLORIDE 105 MMOL/L (99-107); CREATININE 6.39 MG/DL (0.60-1.10); GLUCOSE 124 MG/DL (70-104); MAGNESIUM 2.2 MG/DL (1.5-2.4); POTASSIUM 4.5 MMOL/L (3.5-5.1); SODIUM 135 MMOL/L (135-145); TOTAL CARBON DIOXIDE 18.8 MMOL/L (24-32); TOTAL PROTEIN 7.8 G/DL (6.4-8.2); eGFR 9 ML/MIN
[2020-02-02 07:00] VITALS: BP 123/79
[2020-02-02] MEDS: K and/or MAG REPLACEMENT MC SCH ×2 (08:00→20:00)
--- NOTE | 2020-02-02 09:13 | NUR ---
Patient in room PCU 3013. I have received report from Braydon GOMEZ and had the opportunity to ask questions and assume patient care.
[2020-02-02] MEDS: metoprolol tartrate 50mg tablet PO SCH ×2 (09:27→19:15)
[2020-02-02] MEDS: amLODIPine 5mg tablet PO SCH (09:27)
[2020-02-02] MEDS: heparin, porcine 5000 units/ml vial SQ SCH ×2 (09:31→19:16)
[2020-02-02 11:00] VITALS: BP 148/79
[2020-02-02 15:00] VITALS: BP_SYST 144; BP_SYST 93; BP_DIAS 54; BP_DIAS 84
[2020-02-02 18:00] VITALS: BP 140/73
--- NOTE | 2020-02-02 18:10 | NUR ---
Problems reprioritized. Patient report given, questions answered & plan of care reviewed with Braydon GOMEZ.
--- NOTE | 2020-02-02 18:20 | NUR ---
Patient in room PCU 3013. I have received report from Mirian GOMEZ and had the opportunity to ask questions and assume patient care.
[2020-02-02] MEDS: insulin glargine (Lantus) pen - multi-dose SQ SCH (21:00)
[2020-02-02 22:00] VITALS: BP 131/66
[2020-02-03] MEDS: sodium bicarbonate (8.4%) inj. 150 MEQ in dextrose 5%-water 1,000 ML IV SCH ×2 (00:05→12:11)
[2020-02-03 02:00] VITALS: BP 156/91
[2020-02-03 05:22] LABS: BASOPHILS % (AUTO) 0.5 % (0-1); EOSINOPHILS # (AUTO) 0.1 X10'3 (0-0.9); EOSINOPHILS % (AUTO) 2.9 % (0-6); HEMATOCRIT 22.5 % (42.0-52.0); HEMOGLOBIN 7.4 g/dl (14.0-17.9); LYMPHOCYTES # (AUTO) 0.7 X10'3 (1.1-4.8); LYMPHOCYTES % (AUTO) 19.4 % (21-51); MEAN CORPUSCULAR HEMOGLOBIN 29.9 PG (27.0-31.0); MEAN CORPUSCULAR HGB CONC 32.8 g/dL (33.0-36.5); MEAN CORPUSCULAR VOLUME 91.2 FL (78-98); MEAN PLATELET VOLUME 7.4 FL (7.4-10.4); MONOCYTES # (AUTO) 0.5 X10'3 (0-0.9); MONOCYTES % (AUTO) 15.3 % (2-12); NEUTROPHILS # (AUTO) 2.2 X10'3 (1.8-7.7); NEUTROPHILS % (AUTO) 61.9 % (42-75); PLATELET COUNT 217 X10'3 (140-440); RED BLOOD COUNT 2.47 X10'6 (4.70-6.10); RED CELL DISTRIBUTION WIDTH 17.8 % (11.5-14.5); WHITE BLOOD COUNT 3.6 X10'3 (4.5-11.0)
[2020-02-03 05:29] LABS: ALANINE AMINOTRANSFERASE 24 U/L (12-78); ALBUMIN 2.4 G/DL (3.4-5.0); ALBUMIN/GLOBULIN RATIO 0.5 (1.1-1.5); ALKALINE PHOSPHATASE 107 IU/L (46-116); ANION GAP 13 (8-16); ASPARTATE AMINO TRANSFERASE 19 U/L (10-37); BILIRUBIN,TOTAL 0.5 MG/DL (0.1-1.0); BLOOD UREA NITROGEN 56 MG/DL (7-18); BUN/CREATININE RATIO 9.1 (5.4-32.0); CALCIUM 7.7 MG/DL (8.5-10.1); CHLORIDE 105 MMOL/L (99-107); CREATININE 6.18 MG/DL (0.60-1.10); GLUCOSE 101 MG/DL (70-104); POTASSIUM 4.3 MMOL/L (3.5-5.1); SODIUM 136 MMOL/L (135-145); TOTAL CARBON DIOXIDE 18.3 MMOL/L (24-32); TOTAL PROTEIN 6.9 G/DL (6.4-8.2); eGFR 9 ML/MIN
--- NOTE | 2020-02-03 06:15 | NUR ---
Problems reprioritized. Patient report given, questions answered & plan of care reviewed with Irene Pearson and Library Helper.
--- NOTE | 2020-02-03 06:34 | NUR ---
Patient in room PCU 3013. I have received report from PATRICIA Bryson and had the opportunity to ask questions and assume patient care. Pt resting comfortably, watching tv at change of shift.
[2020-02-03 06:43] LABS: ANISOCYTOSIS 2+; PLATELET ESTIMATE NORMAL; TOTAL CELLS COUNTED 100
[2020-02-03 07:00] VITALS: BP 169/99
[2020-02-03] MEDS: K and/or MAG REPLACEMENT MC SCH ×2 (08:00→20:00)
[2020-02-03] MEDS: hyDRALAzine 10mg tablet PO SCH ×3 (08:15→23:59)
[2020-02-03] MEDS: amLODIPine 5mg tablet PO SCH (08:15)
[2020-02-03] MEDS: metoprolol tartrate 50mg tablet PO SCH ×2 (08:15→20:41)
[2020-02-03] MEDS: heparin, porcine 5000 units/ml vial SQ SCH ×2 (08:16→20:41)
[2020-02-03 11:00] VITALS: BP 135/72
--- NOTE | 2020-02-03 12:18 | NUR ---
Paged Dr Anaya PAGER ID: [phone] MESSAGE: Re MarcoRoshan [id number] Pt had normal BM, not diarrhea, can I take him out of R/O C-Diff ISO? Thanks Irene [id number]
[2020-02-03 15:00] VITALS: BP 134/73
--- NOTE | 2020-02-03 16:19 | NUR ---
Report received from Irene GOMEZ
--- NOTE | 2020-02-03 16:22 | NUR ---
Problems reprioritized. Patient report given, questions answered & plan of care reviewed with PATRICIA Saxena. Pt sitting up in bed, watching tv comfortably. All pt needs met at this time.
[2020-02-03 18:00] VITALS: BP 159/91
--- NOTE | 2020-02-03 18:48 | NUR ---
Problems reprioritized. Patient report given, questions answered & plan of care reviewed with Pat RN.
--- NOTE | 2020-02-03 19:00 | NUR ---
pt aware of need to be non weight bearing when ambulating Addendum: 02/04/20 at 0100 by Aline Zamarripa RN Amended: Links added.
[2020-02-03] MEDS: insulin glargine (Lantus) pen - multi-dose SQ SCH (21:00)
[2020-02-03 22:00] VITALS: BP 125/70
[2020-02-04] MEDS: sodium bicarbonate (8.4%) inj. 150 MEQ in dextrose 5%-water 1,000 ML IV SCH ×3 (01:50→23:51)
[2020-02-04 02:30] VITALS: BP 141/73
--- NOTE | 2020-02-04 06:10 | NUR ---
Patient in room PCU 3013. I have received report from Jenni RN and had the opportunity to ask questions and assume patient care.
[2020-02-04 06:35] LABS: BASOPHILS % (AUTO) 0.8 % (0-1); EOSINOPHILS # (AUTO) 0.1 X10'3 (0-0.9); EOSINOPHILS % (AUTO) 2.1 % (0-6); HEMATOCRIT 23.8 % (42.0-52.0); HEMOGLOBIN 7.9 g/dl (14.0-17.9); LYMPHOCYTES # (AUTO) 0.9 X10'3 (1.1-4.8); LYMPHOCYTES % (AUTO) 18.9 % (21-51); MEAN CORPUSCULAR HEMOGLOBIN 30.6 PG (27.0-31.0); MEAN CORPUSCULAR HGB CONC 33.4 g/dL (33.0-36.5); MEAN CORPUSCULAR VOLUME 91.7 FL (78-98); MEAN PLATELET VOLUME 7.4 FL (7.4-10.4); MONOCYTES # (AUTO) 0.7 X10'3 (0-0.9); MONOCYTES % (AUTO) 14.9 % (2-12); NEUTROPHILS % (AUTO) 63.3 % (42-75); PLATELET COUNT 233 X10'3 (140-440); RED BLOOD COUNT 2.59 X10'6 (4.70-6.10); RED CELL DISTRIBUTION WIDTH 17.4 % (11.5-14.5); WHITE BLOOD COUNT 4.7 X10'3 (4.5-11.0)
[2020-02-04 06:49] LABS: ALANINE AMINOTRANSFERASE 35 U/L (12-78); ALBUMIN 2.5 G/DL (3.4-5.0); ALBUMIN/GLOBULIN RATIO 0.5 (1.1-1.5); ALKALINE PHOSPHATASE 145 IU/L (46-116); ANION GAP 10 (8-16); ASPARTATE AMINO TRANSFERASE 26 U/L (10-37); BILIRUBIN,TOTAL 0.5 MG/DL (0.1-1.0); BLOOD UREA NITROGEN 55 MG/DL (7-18); BUN/CREATININE RATIO 9.3 (5.4-32.0); CALCIUM 7.6 MG/DL (8.5-10.1); CHLORIDE 103 MMOL/L (99-107); GLUCOSE 113 MG/DL (70-104); MAGNESIUM 2.1 MG/DL (1.5-2.4); POTASSIUM 4.1 MMOL/L (3.5-5.1); SODIUM 135 MMOL/L (135-145); TOTAL CARBON DIOXIDE 22.2 MMOL/L (24-32); TOTAL PROTEIN 7.2 G/DL (6.4-8.2); eGFR 10 ML/MIN
[2020-02-04 07:00] VITALS: BP 141/74
[2020-02-04] MEDS: amLODIPine 5mg tablet PO SCH (07:57)
[2020-02-04] MEDS: hyDRALAzine 10mg tablet PO SCH ×3 (07:58→23:42)
[2020-02-04] MEDS: heparin, porcine 5000 units/ml vial SQ SCH ×2 (07:58→20:14)
[2020-02-04] MEDS: metoprolol tartrate 50mg tablet PO SCH ×2 (07:58→20:13)
[2020-02-04] MEDS: K and/or MAG REPLACEMENT MC SCH ×2 (08:00→20:00)
[2020-02-04 11:00] VITALS: BP 140/77
[2020-02-04] MEDS ORDERED: cephalexin 250mg capsule PO ONE (13:15)
[2020-02-04] MEDS: cephalexin 500mg capsule PO SCH ×4 (15:14→23:42)
[2020-02-04 18:00] VITALS: BP 155/88
--- NOTE | 2020-02-04 18:25 | NUR ---
Problems reprioritized. Patient report given, questions answered & plan of care reviewed with Irene Romero RN.
--- NOTE | 2020-02-04 18:31 | NUR ---
Problems reprioritized. Patient report given, questions answered & plan of care reviewed with Lee RN.
[2020-02-04] MEDS: insulin glargine (Lantus) pen - multi-dose SQ SCH (21:00)
[2020-02-05 03:00] VITALS: BP 158/90
[2020-02-05 05:29] LABS: BASOPHILS % (AUTO) 0.7 % (0-1); EOSINOPHILS # (AUTO) 0.1 X10'3 (0-0.9); EOSINOPHILS % (AUTO) 2.1 % (0-6); HEMATOCRIT 24.3 % (42.0-52.0); HEMOGLOBIN 8.1 g/dl (14.0-17.9); LYMPHOCYTES # (AUTO) 0.9 X10'3 (1.1-4.8); LYMPHOCYTES % (AUTO) 18.7 % (21-51); MEAN CORPUSCULAR HGB CONC 33.4 g/dL (33.0-36.5); MEAN CORPUSCULAR VOLUME 92.9 FL (78-98); MEAN PLATELET VOLUME 7.8 FL (7.4-10.4); MONOCYTES # (AUTO) 0.6 X10'3 (0-0.9); NEUTROPHILS # (AUTO) 3.3 X10'3 (1.8-7.7); NEUTROPHILS % (AUTO) 66.5 % (42-75); PLATELET COUNT 252 X10'3 (140-440); RED BLOOD COUNT 2.62 X10'6 (4.70-6.10)
[2020-02-05 06:00] VITALS: BP 158/90
[2020-02-05 06:03] LABS: ALANINE AMINOTRANSFERASE 28 U/L (12-78); ALBUMIN 2.6 G/DL (3.4-5.0); ALBUMIN/GLOBULIN RATIO 0.5 (1.1-1.5); ALKALINE PHOSPHATASE 139 IU/L (46-116); ANION GAP 7 (8-16); ASPARTATE AMINO TRANSFERASE 21 U/L (10-37); BILIRUBIN,TOTAL 0.4 MG/DL (0.1-1.0); BLOOD UREA NITROGEN 57 MG/DL (7-18); BUN/CREATININE RATIO 9.3 (5.4-32.0); CALCIUM 7.8 MG/DL (8.5-10.1); CHLORIDE 103 MMOL/L (99-107); GLUCOSE 131 MG/DL (70-104); MAGNESIUM 2.2 MG/DL (1.5-2.4); POTASSIUM 4.5 MMOL/L (3.5-5.1); SODIUM 136 MMOL/L (135-145); TOTAL CARBON DIOXIDE 25.9 MMOL/L (24-32); TOTAL PROTEIN 7.5 G/DL (6.4-8.2); eGFR 10 ML/MIN
--- NOTE | 2020-02-05 06:34 | NUR ---
Problems reprioritized. Patient report given, questions answered & plan of care reviewed with KALPESH GOMEZ.
--- NOTE | 2020-02-05 06:52 | NUR ---
Patient in room PCU 3010. I have received report from Lee GOMEZ and had the opportunity to ask questions and assume patient care.
--- NOTE | 2020-02-05 07:23 | NUR ---
Culture Result: MRSA L foot
[2020-02-05] MEDS: cephalexin 500mg capsule PO SCH (07:39)
[2020-02-05] MEDS: metoprolol tartrate 50mg tablet PO SCH (07:40)
[2020-02-05] MEDS: amLODIPine 5mg tablet PO SCH (07:40)
[2020-02-05] MEDS: hyDRALAzine 10mg tablet PO SCH (07:41)
[2020-02-05] MEDS: heparin, porcine 5000 units/ml vial SQ SCH (07:43)
[2020-02-05] MEDS: K and/or MAG REPLACEMENT MC SCH (07:43)
[2020-02-05] MEDS ORDERED: clindamycin 150mg capsule PO SCH (09:35)
[2020-02-05 11:00] VITALS: BP 158/90
[2020-02-05] MEDS ORDERED: CLIN-97 PO (13:05)
--- NOTE | 2020-02-05 15:15 | NUR ---
Discharge 1515 With P. leg, clean dressing L foot, prescription orders for ABX, instructions for follow-up. Pt. is in route to [place]. [facility] transport service.
== END 2020-02-05 15:15 | disposition home or self-care (01) | DRG 469 ==
LOC: ER 19:43 → PCU 3S 22:31 → UNDOADMIN 22:31 → CMPBEDREQ 02-01 19:57 → PCU 3S 02-04 15:28
PROVIDERS: ADMIT Internal Medicine; ATTEND Family Medicine
DX: N17.9 Acute kidney failure, unspecified (principal); D63.1 Anemia in chronic kidney disease; E11.22 Type 2 diabetes mellitus with diabetic chronic kidney disease; E11.42 Type 2 diabetes mellitus with diabetic polyneuropathy; E11.65 Type 2 diabetes mellitus with hyperglycemia; E87.1 Hypo-osmolality and hyponatremia; E87.5 Hyperkalemia; I12.0 Hypertensive chronic kidney disease with stage 5 chronic kidney disease or end stage renal disease; K59.00 Constipation, unspecified; J90 Pleural effusion, not elsewhere classified; N18.6 End stage renal disease; Z87.891 Personal history of nicotine dependence; Z89.511 Acquired absence of right leg below knee
CPT/HCPCS: 36415; 36430; 71045; 80053; 80061; 81001; 82948; 83036; 83605; 83735; 84145; 85007; 85025; 86885; 86900; 86901; 86920; 87040; 87070; 87075; 87077; 87081; 87186; 93005; 97116; 97161; 97530; 99285; G0378; J0696; J1644; J1815; J7030; P9016

== ENCOUNTER 2020-02-09 09:15 | Outpatient (CLI) | payer MEDICAID ==
[~2020-02-09 09:15] MED LIST changes: +CLIN-97 PO
[2020-02-09] MEDS ORDERED: LIDO1ADH TOP (10:08)
[2020-02-09] MEDS ORDERED: POTA10TA10 PO (10:47)
[2020-02-09] MEDS ORDERED: FURO-150 PO (10:47)
== END 2020-02-09 09:35 | disposition home or self-care (01) ==
LOC: WOUND CARE 09:15 → EDSTATUS 09:40
PROVIDERS: ATTEND Nurse Practitioner
DX: T87.89 Other complications of amputation stump (principal); E11.621 Type 2 diabetes mellitus with foot ulcer; L97.522 Non-pressure chronic ulcer of other part of left foot with fat layer exposed; E11.40 Type 2 diabetes mellitus with diabetic neuropathy, unspecified; E11.65 Type 2 diabetes mellitus with hyperglycemia; E11.22 Type 2 diabetes mellitus with diabetic chronic kidney disease; I13.2 Hypertensive heart and chronic kidney disease with heart failure and with stage 5 chronic kidney disease, or end stage renal disease; D63.1 Anemia in chronic kidney disease; N18.6 End stage renal disease; I50.22 Chronic systolic (congestive) heart failure; E11.69 Type 2 diabetes mellitus with other specified complication; M86.472 Chronic osteomyelitis with draining sinus, left ankle and foot; M86.471 Chronic osteomyelitis with draining sinus, right ankle and foot; E11.42 Type 2 diabetes mellitus with diabetic polyneuropathy; E11.319 Type 2 diabetes mellitus with unspecified diabetic retinopathy without macular edema; E11.52 Type 2 diabetes mellitus with diabetic peripheral angiopathy with gangrene; I87.2 Venous insufficiency (chronic) (peripheral); L84 Corns and callosities; E78.5 Hyperlipidemia, unspecified; Z86.718 Personal history of other venous thrombosis and embolism; Z89.422 Acquired absence of other left toe(s); Z79.899 Other long term (current) drug therapy; Z79.4 Long term (current) use of insulin; Z89.012 Acquired absence of left thumb; Z90.49 Acquired absence of other specified parts of digestive tract; Z89.021 Acquired absence of right finger(s); Z68.27 Body mass index [BMI] 27.0-27.9, adult; Z89.511 Acquired absence of right leg below knee; Y83.5 Amputation of limb(s) as the cause of abnormal reaction of the patient, or of later complication, without mention of misadventure at the time of the procedure
CPT/HCPCS: G0463

== ENCOUNTER 2020-02-09 09:39 | Emergency (ER) | payer MEDICAID ==
[~2020-02-09] VITALS: Ht 188 cm; Wt 95.5 kg
[2020-02-09] MEDS ORDERED: LIDO1ADH TOP (10:08)
[2020-02-09] MEDS ORDERED: FURO-150 PO (10:47)
[2020-02-09] MEDS ORDERED: POTA10TA10 PO (10:47)
[2020-02-09 10:54] VITALS: BP 193/111
== END 2020-02-09 11:03 | disposition home or self-care (01) ==
LOC: ER 09:40
DX: J90 Pleural effusion, not elsewhere classified (principal); E11.42 Type 2 diabetes mellitus with diabetic polyneuropathy; I10 Essential (primary) hypertension; Z90.49 Acquired absence of other specified parts of digestive tract; Z98.890 Other specified postprocedural states; Z60.2 Problems related to living alone
CPT/HCPCS: 71045; 93005; 99284

== ENCOUNTER 2020-02-15 12:46 | Inpatient (IN) | payer MEDICAID ==
[~2020-02-15] VITALS: Ht 188 cm; Wt 84.0 kg
[~2020-02-15 12:46] MED LIST changes: +LIDO1ADH TOP
--- NOTE | 2020-02-15 14:07 | NUR ---
automation technician at bedside.
[2020-02-15 14:55] LABS: BASOPHILS % (AUTO) 0.7 % (0-1); EOSINOPHILS % (AUTO) 0.2 % (0-6); HEMATOCRIT 29.2 % (42.0-52.0); HEMOGLOBIN 9.3 g/dl (14.0-17.9); LYMPHOCYTES # (AUTO) 0.8 X10'3 (1.1-4.8); LYMPHOCYTES % (AUTO) 15.1 % (21-51); MEAN CORPUSCULAR VOLUME 93.6 FL (78-98); MEAN PLATELET VOLUME 7.3 FL (7.4-10.4); MONOCYTES # (AUTO) 0.4 X10'3 (0-0.9); MONOCYTES % (AUTO) 7.8 % (2-12); NEUTROPHILS # (AUTO) 3.9 X10'3 (1.8-7.7); NEUTROPHILS % (AUTO) 76.2 % (42-75); PLATELET COUNT 364 X10'3 (140-440); RED BLOOD COUNT 3.12 X10'6 (4.70-6.10); RED CELL DISTRIBUTION WIDTH 18.5 % (11.5-14.5); WHITE BLOOD COUNT 5.1 X10'3 (4.5-11.0)
[2020-02-15 14:59] LABS: ALANINE AMINOTRANSFERASE 63 U/L (12-78); ALBUMIN/GLOBULIN RATIO 0.5 (1.1-1.5); ALKALINE PHOSPHATASE 152 IU/L (46-116); ANION GAP 15 (8-16); ASPARTATE AMINO TRANSFERASE 72 U/L (10-37); BILIRUBIN,TOTAL 0.7 MG/DL (0.1-1.0); BLOOD UREA NITROGEN 68 MG/DL (7-18); BUN/CREATININE RATIO 9.1 (5.4-32.0); CALCIUM 8.6 MG/DL (8.5-10.1); CHLORIDE 106 MMOL/L (99-107); CREATININE 7.48 MG/DL (0.60-1.10); GLUCOSE 113 MG/DL (70-104); POTASSIUM 5.5 MMOL/L (3.5-5.1); SODIUM 138 MMOL/L (135-145); TOTAL PROTEIN 8.8 G/DL (6.4-8.2); eGFR 8 ML/MIN
[2020-02-15] MEDS ORDERED: normal saline 1000ML IV soln IVB ONE (15:20)
[2020-02-15] MEDS ORDERED: hydrALAZINE 20mg/ml inj. IV ONE (17:05)
[2020-02-15] MEDS ORDERED: cloNIDine 0.1 mg tablet PO ONE (17:05)
--- NOTE | 2020-02-15 17:08 | NUR ---
DEE LOO AWARE OF BP 197/128.
[2020-02-15] MEDS ORDERED: metoprolol succinate 25mg (24-HOUR) SR. Tablet PO SCH (17:45)
[2020-02-15] MEDS ORDERED: metoprolol succinate 25mg (24-HOUR) SR. Tablet PO ONE (17:45)
[2020-02-15] MEDS ORDERED: amLODIPine 5mg tablet PO ONE (17:45)
[2020-02-15] MEDS ORDERED: hyDRALAzine 10mg tablet PO ONE (18:00)
--- NOTE | 2020-02-15 18:51 | NUR ---
Patient says he gave urine sample in fast track, the urine never made it to the lab. I have requested the patient give another sample.
[2020-02-15 18:55] LABS: OCCULT BLOOD STOOL NEGATIVE (Neg)
[2020-02-15 19:46] LABS: URINE AMPHETAMINE SCREEN NEGATIVE (Neg); URINE BARBITUATE SCREEN NEGATIVE (Neg); URINE BENZODIAZEPINES SCREEN NEGATIVE (Neg); URINE CANNABINOID SCREEN NEGATIVE (Neg); URINE COCAINE SCREEN NEGATIVE (Neg); URINE METHADONE SCREEN NEGATIVE (Neg); URINE OPIATE SCREEN NEGATIVE (Neg); URINE PHENCYCLIDINE SCREEN NEGATIVE (Neg)
[2020-02-15] MEDS ORDERED: NO HOME MEDS (20:51)
--- NOTE | 2020-02-15 21:15 | NUR ---
heppa filter and isolation cart outside of room
--- NOTE | 2020-02-15 21:23 | NUR ---
x ray at bedside
[2020-02-15 21:29] LABS: CLARITY,URINE CLEAR (Clear); COLOR,URINE YELLOW (Yellow); GLUCOSE, URINE 100 mg/dl (Neg); KETONES,URINE TRACE mg/dl (Neg); LEUKOCYTE ESTERASE ,URINE NEGATIVE (Neg); NITRITES, URINE NEGATIVE (Neg); OCCULT BLOOD,URINE MODERATE (Neg); PROTEIN,URINE >=300 mg/dl (Neg); UROBILINOGEN,URINE 0.2 E.U/dL (0.2-1.0)
[2020-02-15 21:32] LABS: UA COLLECTION TYPE CLN CATCH MIDSTREAM
[2020-02-15 21:33] LABS: BACTERIA,URINE 1+ /HPF (Neg); SQUAMOUS EPITHELIAL CELL,UR FEW /LPF (FEW); WBC,URINE 0-4 /HPF (0-4)
[2020-02-15] MEDS ORDERED: ondansetron/PF 4mg/2ml inj IV PRN (23:10)
[2020-02-15] MEDS ORDERED: acetaminophen 325mg tablet PO PRN (23:10)
[2020-02-15] MEDS ORDERED: mag hydrox/Alum hydrox/simeth 30ml oral suspension PO PRN (23:10)
[2020-02-15] MEDS ORDERED: magnesium hydroxide 30ml (MOM) UD suspension PO PRN (23:10)
[2020-02-15] MEDS ORDERED: dextrose 50%-water 50ml dispensing syringe IV PRN ×2 (23:15)
[2020-02-15] MEDS ORDERED: glucagon, human recombinant 1mg kit SUBCUT PRN (23:15)
[2020-02-15] MEDS ORDERED: MESSAGE TO PHARMACY PO ONE (23:15)
[2020-02-15] MEDS ORDERED: insulin Lispro (HumaLOG) vial - multi-dose SQ SCH (23:15)
[2020-02-15] MEDS ORDERED: dextrose ORAL solution 15 GM/59 ML bottle PO PRN ×2 (23:15)
--- NOTE | 2020-02-15 23:28 | NUR ---
PER LAB, PT'S LAST A1C ON 01/30
[2020-02-16] MEDS: sodium bicarbonate (8.4%) inj. 150 MEQ in dextrose 5%-water 1,000 ML IV SCH ×2 (00:15→13:10)
--- NOTE | 2020-02-16 02:20 | NUR ---
Received report from Hannah GOMEZ in the ER. Pt arrived via gurney with his belongings and was able to scoot from the gurney to his bad. Belongings included his prothesis and sock. Pt was on R/A, SL and VSS. He had no signs of distress. Will continue to monitor.
[2020-02-16 02:59] VITALS: BP 165/92
--- NOTE | 2020-02-16 06:09 | NUR ---
Problems reprioritized. Patient report given, questions answered & plan of care reviewed with Lee RN.
[2020-02-16 06:31] LABS: EOSINOPHILS % (AUTO) 0.7 % (0-6); HEMATOCRIT 28.6 % (42.0-52.0); HEMOGLOBIN 9.2 g/dl (14.0-17.9); LYMPHOCYTES # (AUTO) 0.7 X10'3 (1.1-4.8); LYMPHOCYTES % (AUTO) 14.9 % (21-51); MEAN CORPUSCULAR HGB CONC 32.2 g/dL (33.0-36.5); MEAN CORPUSCULAR VOLUME 93.1 FL (78-98); MEAN PLATELET VOLUME 7.5 FL (7.4-10.4); MONOCYTES # (AUTO) 0.3 X10'3 (0-0.9); MONOCYTES % (AUTO) 7.1 % (2-12); NEUTROPHILS # (AUTO) 3.5 X10'3 (1.8-7.7); NEUTROPHILS % (AUTO) 76.3 % (42-75); PLATELET COUNT 309 X10'3 (140-440); RED BLOOD COUNT 3.07 X10'6 (4.70-6.10); RED CELL DISTRIBUTION WIDTH 18.5 % (11.5-14.5); WHITE BLOOD COUNT 4.6 X10'3 (4.5-11.0)
[2020-02-16 06:56] LABS: ALANINE AMINOTRANSFERASE 77 U/L (12-78); ALBUMIN 2.7 G/DL (3.4-5.0); ALBUMIN/GLOBULIN RATIO 0.5 (1.1-1.5); ALKALINE PHOSPHATASE 125 IU/L (46-116); ANION GAP 14 (8-16); ASPARTATE AMINO TRANSFERASE 70 U/L (10-37); BILIRUBIN,TOTAL 0.6 MG/DL (0.1-1.0); BLOOD UREA NITROGEN 64 MG/DL (7-18); BUN/CREATININE RATIO 9.1 (5.4-32.0); CALCIUM 8.1 MG/DL (8.5-10.1); CHLORIDE 108 MMOL/L (99-107); CREATININE 7.01 MG/DL (0.60-1.10); GLUCOSE 123 MG/DL (70-104); PHOSPHORUS 6.2 MG/DL (2.3-4.5); POTASSIUM 4.9 MMOL/L (3.5-5.1); SODIUM 137 MMOL/L (135-145); TOTAL PROTEIN 7.9 G/DL (6.4-8.2); eGFR 8 ML/MIN
[2020-02-16 07:00] VITALS: BP 161/98
--- NOTE | 2020-02-16 07:08 | NUR ---
MESSAGE: ALEX SURG [id number] RE: Glenda VALDOVINOS 349B PATIENT HAS CRITICAL CO2 OF 15.0 AND SATS ARE 89% JUST GAVE HIM A NC AT 2L
--- NOTE | 2020-02-16 07:10 | NUR ---
Patient in room TAMAR 349. I have received report from CELIA GOMEZ and had the opportunity to ask questions and assume patient care.
[2020-02-16] MEDS: amLODIPine 5mg tablet PO SCH (08:28)
[2020-02-16] MEDS: metoprolol succinate 25mg (24-HOUR) SR. Tablet PO SCH (08:29)
[2020-02-16] MEDS: heparin, porcine 5000 units/ml vial SQ SCH ×2 (08:32→20:21)
[2020-02-16] MEDS ORDERED: amLODIPine 5mg tablet PO SCH (09:40)
[2020-02-16] MEDS ORDERED: carvedilol 6.25mg tablet PO SCH (09:41)
[2020-02-16] MEDS ORDERED: pneumococcal 23-VAL P-sac vacc 25 mcg/0.5ml vial IMVAC ONE (10:00)
[2020-02-16] MEDS ORDERED: FLU VACC QS2020-21(6MOS UP)/PF 60 MCG/0.5 ML SYRINGE IMVAC ONE (10:00)
--- NOTE | 2020-02-16 10:41 | NUR ---
DM consult: Pt with A1c 5.7%, down from 6.8% in December of this year per records, DM education not warranted at this time. Will continue to follow. Addendum: 02/16/20 at [address] Amended: Links added.
[2020-02-16 11:00] VITALS: BP 152/81
--- NOTE | 2020-02-16 12:04 | NUR ---
Problems reprioritized. Patient report given, questions answered & plan of care reviewed with Marco A kenney. Addendum: 02/16/20 at 1208 by Rey HARVEY nOTE MADE ON WRONG PATIENT
[2020-02-16] MEDS: ipratropium/albuterol 3ml nebule NEB SCH ×4 (14:21→23:26)
--- NOTE | 2020-02-16 15:00 | NUR ---
Patient blood glucose was 94 at lunch, patient was not covered for his intake because carb count was not found. No coverage for BG would have been given at this time. Will resume at dinner time treatment.
[2020-02-16] MEDS: hyDRALAzine 10mg tablet PO SCH (16:15)
[2020-02-16 16:39] LABS: CLARITY,URINE CLEAR (Clear); COLOR,URINE YELLOW (Yellow); GLUCOSE, URINE 250 mg/dl (Neg); KETONES,URINE NEGATIVE (Neg); LEUKOCYTE ESTERASE ,URINE NEGATIVE (Neg); NITRITES, URINE NEGATIVE (Neg); OCCULT BLOOD,URINE MODERATE (Neg); PROTEIN,URINE >=300 mg/dl (Neg); UROBILINOGEN,URINE 0.2 E.U/dL (0.2-1.0)
[2020-02-16 16:55] LABS: UA COLLECTION TYPE NON-SPECIFIED
[2020-02-16 16:58] LABS: WBC,URINE 0-4 /HPF (0-4)
[2020-02-16 16:59] LABS: BACTERIA,URINE NONE SEEN /HPF (Neg); HYALINE CASTS 0-3 /LPF (NEGATIVE); SQUAMOUS EPITHELIAL CELL,UR FEW /LPF (FEW)
[2020-02-16 18:12] LABS: UA EOSINOPHILS NO EOS /HPF
--- NOTE | 2020-02-16 18:54 | NUR ---
Problems reprioritized. Patient report given, questions answered & plan of care reviewed with Shannon GOMEZ.
[2020-02-16 20:00] VITALS: BP 149/88
[2020-02-17] VITALS: BP 143/86
[2020-02-17] MEDS: hyDRALAzine 10mg tablet PO SCH ×4 (00:56→23:31)
[2020-02-17] MEDS ORDERED: benzocaine/menthol oral lozeng 1 EACH BOX MM PRN (02:35)
[2020-02-17] MEDS: ipratropium/albuterol 3ml nebule NEB SCH ×5 (03:32→23:19)
[2020-02-17 06:20] LABS: BASOPHILS % (AUTO) 0.5 % (0-1); EOSINOPHILS # (AUTO) 0.1 X10'3 (0-0.9); EOSINOPHILS % (AUTO) 2.6 % (0-6); HEMATOCRIT 25.5 % (42.0-52.0); HEMOGLOBIN 8.4 g/dl (14.0-17.9); LYMPHOCYTES # (AUTO) 0.7 X10'3 (1.1-4.8); LYMPHOCYTES % (AUTO) 12.6 % (21-51); MEAN CORPUSCULAR HEMOGLOBIN 30.6 PG (27.0-31.0); MEAN CORPUSCULAR HGB CONC 32.8 g/dL (33.0-36.5); MEAN CORPUSCULAR VOLUME 93.3 FL (78-98); MEAN PLATELET VOLUME 7.5 FL (7.4-10.4); MONOCYTES # (AUTO) 0.5 X10'3 (0-0.9); MONOCYTES % (AUTO) 10.1 % (2-12); NEUTROPHILS % (AUTO) 74.2 % (42-75); PLATELET COUNT 295 X10'3 (140-440); RED BLOOD COUNT 2.73 X10'6 (4.70-6.10); RED CELL DISTRIBUTION WIDTH 18.8 % (11.5-14.5); WHITE BLOOD COUNT 5.4 X10'3 (4.5-11.0)
[2020-02-17 06:32] LABS: ALANINE AMINOTRANSFERASE 70 U/L (12-78); ALBUMIN 2.5 G/DL (3.4-5.0); ALBUMIN/GLOBULIN RATIO 0.5 (1.1-1.5); ALKALINE PHOSPHATASE 113 IU/L (46-116); ANION GAP 13 (8-16); ASPARTATE AMINO TRANSFERASE 40 U/L (10-37); BILIRUBIN,TOTAL 0.4 MG/DL (0.1-1.0); BLOOD UREA NITROGEN 71 MG/DL (7-18); BUN/CREATININE RATIO 9.7 (5.4-32.0); CALCIUM 7.6 MG/DL (8.5-10.1); CHLORIDE 104 MMOL/L (99-107); CREATININE 7.32 MG/DL (0.60-1.10); GLUCOSE 166 MG/DL (70-104); MAGNESIUM 2.3 MG/DL (1.5-2.4); PHOSPHORUS 6.4 MG/DL (2.3-4.5); POTASSIUM 4.2 MMOL/L (3.5-5.1); SODIUM 138 MMOL/L (135-145); TOTAL CARBON DIOXIDE 20.6 MMOL/L (24-32); TOTAL PROTEIN 7.4 G/DL (6.4-8.2); eGFR 8 ML/MIN
--- NOTE | 2020-02-17 06:34 | NUR ---
Patient in room TAMAR 349. I have received report from PATRICIA Ortega and had the opportunity to ask questions and assume patient care.
--- NOTE | 2020-02-17 06:54 | NUR ---
Problems reprioritized. Patient report given, questions answered & plan of care reviewed with Saniya GOMEZ.
[2020-02-17 07:00] VITALS: BP 140/76
[2020-02-17 07:29] VITALS: BP 131/72
[2020-02-17] MEDS: metoprolol succinate 25mg (24-HOUR) SR. Tablet PO SCH (07:51)
[2020-02-17] MEDS: amLODIPine 5mg tablet PO SCH (07:53)
[2020-02-17] MEDS: heparin, porcine 5000 units/ml vial SQ SCH ×2 (07:56→20:35)
[2020-02-17] MEDS: sodium bicarbonate (8.4%) inj. 150 MEQ in dextrose 5%-water 1,000 ML IV SCH ×2 (08:35→14:15)
[2020-02-17 08:45] LABS: ANISOCYTOSIS 2+; PLATELET ESTIMATE NORMAL
[2020-02-17 08:46] LABS: BURR CELLS FEW; POLYCHROMASIA FEW; SCHISTOCYTES FEW
[2020-02-17 11:00] VITALS: BP_SYST 139; BP_SYST 152; BP_DIAS 79; BP_DIAS 81
--- NOTE | 2020-02-17 17:09 | NUR ---
Student documentation: I have reviewed interventions, assessments performed and documented by [facility] Student Temo
[2020-02-17 18:00] VITALS: BP 150/80
--- NOTE | 2020-02-17 18:23 | NUR ---
Problems reprioritized. Patient report given, questions answered & plan of care reviewed with PATRICIA Ortega.
--- NOTE | 2020-02-17 18:25 | NUR ---
Patient in room TAMAR 349. I have received report from Saniya GOMEZ and had the opportunity to ask questions and assume patient care.
[2020-02-18] VITALS: BP 156/96
[2020-02-18] MEDS: ipratropium/albuterol 3ml nebule NEB SCH ×7 (03:37→23:25)
[2020-02-18 05:45] LABS: BASOPHILS % (AUTO) 0.6 % (0-1); EOSINOPHILS # (AUTO) 0.2 X10'3 (0-0.9); EOSINOPHILS % (AUTO) 4.1 % (0-6); HEMATOCRIT 27.1 % (42.0-52.0); HEMOGLOBIN 8.7 g/dl (14.0-17.9); LYMPHOCYTES # (AUTO) 0.9 X10'3 (1.1-4.8); LYMPHOCYTES % (AUTO) 20.7 % (21-51); MEAN CORPUSCULAR HEMOGLOBIN 29.7 PG (27.0-31.0); MEAN CORPUSCULAR VOLUME 92.8 FL (78-98); MEAN PLATELET VOLUME 7.4 FL (7.4-10.4); MONOCYTES # (AUTO) 0.5 X10'3 (0-0.9); NEUTROPHILS # (AUTO) 2.8 X10'3 (1.8-7.7); NEUTROPHILS % (AUTO) 63.6 % (42-75); PLATELET COUNT 294 X10'3 (140-440); RED BLOOD COUNT 2.92 X10'6 (4.70-6.10); RED CELL DISTRIBUTION WIDTH 18.7 % (11.5-14.5); WHITE BLOOD COUNT 4.4 X10'3 (4.5-11.0)
[2020-02-18 05:59] LABS: ALANINE AMINOTRANSFERASE 56 U/L (12-78); ALBUMIN 2.6 G/DL (3.4-5.0); ALBUMIN/GLOBULIN RATIO 0.5 (1.1-1.5); ALKALINE PHOSPHATASE 123 IU/L (46-116); ANION GAP 10 (8-16); ASPARTATE AMINO TRANSFERASE 29 U/L (10-37); BILIRUBIN,TOTAL 0.4 MG/DL (0.1-1.0); BLOOD UREA NITROGEN 71 MG/DL (7-18); BUN/CREATININE RATIO 9.9 (5.4-32.0); CALCIUM 7.1 MG/DL (8.5-10.1); CHLORIDE 105 MMOL/L (99-107); CREATININE 7.19 MG/DL (0.60-1.10); GLUCOSE 103 MG/DL (70-104); MAGNESIUM 2.3 MG/DL (1.5-2.4); PHOSPHORUS 6.3 MG/DL (2.3-4.5); POTASSIUM 4.4 MMOL/L (3.5-5.1); SODIUM 137 MMOL/L (135-145); TOTAL CARBON DIOXIDE 22.5 MMOL/L (24-32); TOTAL PROTEIN 7.7 G/DL (6.4-8.2); eGFR 8 ML/MIN
--- NOTE | 2020-02-18 06:40 | NUR ---
Problems reprioritized. Patient report given, questions answered & plan of care reviewed with Saniya GOMEZ.
--- NOTE | 2020-02-18 06:54 | NUR ---
Patient in room TAMAR 349. I have received report from PATRICIA Ortega and had the opportunity to ask questions and assume patient care.
[2020-02-18 07:00] VITALS: BP 141/69
[2020-02-18] MEDS: sodium bicarbonate (8.4%) inj. 150 MEQ in dextrose 5%-water 1,000 ML IV SCH (07:35)
[2020-02-18] MEDS: amLODIPine 5mg tablet PO SCH (08:07)
[2020-02-18] MEDS: metoprolol succinate 25mg (24-HOUR) SR. Tablet PO SCH (08:08)
[2020-02-18] MEDS: hyDRALAzine 10mg tablet PO SCH ×2 (08:08→16:41)
[2020-02-18] MEDS: heparin, porcine 5000 units/ml vial SQ SCH ×2 (08:14→21:28)
[2020-02-18 11:00] VITALS: BP 152/92
--- NOTE | 2020-02-18 12:20 | NUR ---
Pt instructed on IS and Flutter but expresses unlikely to do them. Explained complications of refusal inclusing worsening of respitory status to a point he may need more intervention.
--- NOTE | 2020-02-18 17:34 | NUR ---
Student documentation: I have reviewed all interventions, assessments performed and documented by Rehan VILLELA from [facility].
--- NOTE | 2020-02-18 17:44 | NUR ---
Tisha Berumen Consult: Pt requests additional food w/ meals and has R foot DM ulcer. PO 100% meals. Double eggs WB and double meats BIDLD added to meals for additional proteins; dietary notified. To f/u 02/19 for initial assessment. Addendum: 02/18/20 at [address] Amended: Links added. Addendum: 02/21/20 at [address] F/u: Noted pt started on HD per MD noted/orders in EMR. Will resume double meats BIDLD for additional needs on HD w/ DM ulcer; hold double eggs given Phos content. Dietary notified. Recommendations: 1) Continue renal diet. Consider discontinuation of CHO controlled diet to liberalize food options for satiety and last A1c 5.7% 2) Extra non-starchy vegetables with meals for satiety 3) Double protein BIDLD on HD 4) phos binder per MD on HD 5) Routine bowel care 6) Scaled weights per rx
[2020-02-18 18:00] VITALS: BP 153/83
--- NOTE | 2020-02-18 18:48 | NUR ---
Problems reprioritized. Patient report given, questions answered & plan of care reviewed with PATRICIA Carter.
--- NOTE | 2020-02-18 19:44 | NUR ---
Pt frequesntly refusing breathing tx. States that he has had enough today and does not want any more
[2020-02-19] VITALS: BP 154/79
[2020-02-19] MEDS: hyDRALAzine 10mg tablet PO SCH ×4 (01:00→19:21)
[2020-02-19] MEDS: ipratropium/albuterol 3ml nebule NEB SCH ×6 (04:00→23:57)
[2020-02-19 05:10] LABS: EOSINOPHILS # (AUTO) 0.1 X10'3 (0-0.9); EOSINOPHILS % (AUTO) 3.2 % (0-6); HEMOGLOBIN 8.6 g/dl (14.0-17.9); LYMPHOCYTES # (AUTO) 0.9 X10'3 (1.1-4.8); LYMPHOCYTES % (AUTO) 22.3 % (21-51); MEAN CORPUSCULAR HEMOGLOBIN 30.8 PG (27.0-31.0); MEAN CORPUSCULAR VOLUME 93.4 FL (78-98); MEAN PLATELET VOLUME 7.4 FL (7.4-10.4); MONOCYTES # (AUTO) 0.4 X10'3 (0-0.9); MONOCYTES % (AUTO) 10.3 % (2-12); NEUTROPHILS # (AUTO) 2.6 X10'3 (1.8-7.7); NEUTROPHILS % (AUTO) 63.2 % (42-75); PLATELET COUNT 268 X10'3 (140-440); RED BLOOD COUNT 2.79 X10'6 (4.70-6.10); RED CELL DISTRIBUTION WIDTH 18.5 % (11.5-14.5); WHITE BLOOD COUNT 4.1 X10'3 (4.5-11.0)
[2020-02-19 05:32] LABS: ALANINE AMINOTRANSFERASE 53 U/L (12-78); ALBUMIN 2.5 G/DL (3.4-5.0); ALBUMIN/GLOBULIN RATIO 0.5 (1.1-1.5); ALKALINE PHOSPHATASE 110 IU/L (46-116); ANION GAP 13 (8-16); ASPARTATE AMINO TRANSFERASE 24 U/L (10-37); BILIRUBIN,TOTAL 0.3 MG/DL (0.1-1.0); BLOOD UREA NITROGEN 80 MG/DL (7-18); BUN/CREATININE RATIO 10.8 (5.4-32.0); CALCIUM 7.4 MG/DL (8.5-10.1); CHLORIDE 104 MMOL/L (99-107); CREATININE 7.39 MG/DL (0.60-1.10); GLUCOSE 108 MG/DL (70-104); MAGNESIUM 2.3 MG/DL (1.5-2.4); PHOSPHORUS 7.2 MG/DL (2.3-4.5); POTASSIUM 4.3 MMOL/L (3.5-5.1); SODIUM 139 MMOL/L (135-145); TOTAL CARBON DIOXIDE 22.5 MMOL/L (24-32); TOTAL PROTEIN 7.2 G/DL (6.4-8.2); eGFR 8 ML/MIN
[2020-02-19 06:30] VITALS: BP 155/87
--- NOTE | 2020-02-19 06:40 | NUR ---
Patient in room TAMAR 352. I have received report from PATRICIA Carter and had the opportunity to ask questions and assume patient care.
--- NOTE | 2020-02-19 06:46 | NUR ---
Problems reprioritized. Patient report given, questions answered & plan of care reviewed with TITA RN.
[2020-02-19] MEDS: metoprolol succinate 25mg (24-HOUR) SR. Tablet PO SCH (08:57)
[2020-02-19] MEDS: amLODIPine 5mg tablet PO SCH (08:59)
[2020-02-19] MEDS: heparin, porcine 5000 units/ml vial SQ SCH ×2 (09:03→19:19)
[2020-02-19 11:00] VITALS: BP 156/82
--- NOTE | 2020-02-19 12:17 | NUR ---
1100 svn refused by pt
--- NOTE | 2020-02-19 12:39 | NUR ---
Initial: Pt admit with acute on chronic renal failure, currently not on dialysis at this time however pt states he would consider dialysis per MD notes. Additional protein not appropriate at this time given patient's renal status. D/w dietary to send extra non-starchy vegetables with meals for satiety. Extra protein will be appropriate if pt to start dialysis. Nephrology continues to follow. LBM 02/16. Will continue to follow. Recommendations: 1) Continue renal diet. Consider discontinuation of CHO controlled diet to liberalize food options for satiety and last A1c 5.7% 2) Extra non-starchy vegetables with meals for satiety 3) Double protein BIDLD for satiety IF pt to start dialysis 4) Consider phos binder given elevated serum Phos since admit 5) Routine bowel care 6) Scaled weights per rx Addendum: 02/19/20 at [address] Amended: Links added.
[2020-02-19 15:30] VITALS: BP 143/77
[2020-02-19] MEDS ORDERED: heparin 1,000unit/ml 10ml vial 10 ML ONE (16:44)
[2020-02-19] MEDS ORDERED: LIDOcaine 1%/PF 5ML 10 MG/ML VIAL ONE (16:44)
[2020-02-19] MEDS: sevelamer carbonate 800mg tablet PO SCH (17:54)
--- NOTE | 2020-02-19 18:15 | NUR ---
Problems reprioritized. Patient report given, questions answered & plan of care reviewed with PATRICIA Carter.
[2020-02-19] MEDS ORDERED: HYDROcodone/acetaminophen 10/325mg tab PO PRN (19:05)
[2020-02-19] MEDS ORDERED: HYDROcodone/acetaminophen 5mg/325mg tablet PO PRN (19:05)
[2020-02-20] VITALS: BP 142/80
[2020-02-20] MEDS ORDERED: gelatin sponge, absorbable (Gelfoam 100) sponge TP ONE (00:10)
[2020-02-20] MEDS: hyDRALAzine 10mg tablet PO SCH ×4 (02:12→21:27)
[2020-02-20 02:32] LABS: ALANINE AMINOTRANSFERASE 47 U/L (12-78); ALBUMIN 2.6 G/DL (3.4-5.0); ALBUMIN/GLOBULIN RATIO 0.5 (1.1-1.5); ALKALINE PHOSPHATASE 119 IU/L (46-116); ANION GAP 12 (8-16); ASPARTATE AMINO TRANSFERASE 24 U/L (10-37); BILIRUBIN,TOTAL 0.3 MG/DL (0.1-1.0); BLOOD UREA NITROGEN 85 MG/DL (7-18); BUN/CREATININE RATIO 10.5 (5.4-32.0); CALCIUM 7.2 MG/DL (8.5-10.1); CHLORIDE 101 MMOL/L (99-107); CREATININE 8.12 MG/DL (0.60-1.10); GLUCOSE 120 MG/DL (70-104); MAGNESIUM 2.3 MG/DL (1.5-2.4); PARTIAL THROMBOPLASTIN TIME 33 SECONDS (22-32); PHOSPHORUS 6.9 MG/DL (2.3-4.5); POTASSIUM 4.8 MMOL/L (3.5-5.1); SODIUM 134 MMOL/L (135-145); TOTAL CARBON DIOXIDE 21.1 MMOL/L (24-32); TOTAL PROTEIN 7.7 G/DL (6.4-8.2); eGFR 7 ML/MIN
[2020-02-20 02:48] LABS: BASOPHILS % (AUTO) 0.5 % (0-1); EOSINOPHILS # (AUTO) 0.1 X10'3 (0-0.9); EOSINOPHILS % (AUTO) 2.4 % (0-6); HEMATOCRIT 26.3 % (42.0-52.0); HEMOGLOBIN 8.4 g/dl (14.0-17.9); LYMPHOCYTES # (AUTO) 0.9 X10'3 (1.1-4.8); MEAN CORPUSCULAR HEMOGLOBIN 29.7 PG (27.0-31.0); MEAN CORPUSCULAR HGB CONC 31.9 g/dL (33.0-36.5); MEAN CORPUSCULAR VOLUME 92.9 FL (78-98); MEAN PLATELET VOLUME 7.5 FL (7.4-10.4); MONOCYTES # (AUTO) 0.5 X10'3 (0-0.9); MONOCYTES % (AUTO) 9.3 % (2-12); NEUTROPHILS # (AUTO) 3.6 X10'3 (1.8-7.7); NEUTROPHILS % (AUTO) 70.8 % (42-75); PLATELET COUNT 303 X10'3 (140-440); RED BLOOD COUNT 2.82 X10'6 (4.70-6.10); RED CELL DISTRIBUTION WIDTH 18.6 % (11.5-14.5); WHITE BLOOD COUNT 5.1 X10'3 (4.5-11.0)
[2020-02-20] MEDS: ipratropium/albuterol 3ml nebule NEB SCH ×6 (04:00→23:09)
--- NOTE | 2020-02-20 06:25 | NUR ---
Patient in room TAMAR 352. I have received report from PATRICIA Carter and had the opportunity to ask questions and assume patient care.
[2020-02-20 06:30] VITALS: BP 153/88
--- NOTE | 2020-02-20 06:39 | NUR ---
THE TDC HAS BEEN BLEEDING THROUGH THE NIGHT. GELFORM ORDERED AND HAS BEEN REINFORCING THE DRESSING WITH MANUAL PRESSURE AND A SAND BAG. SUPERVISOR MAINSPRING FABRICATION AWARE OF PATIENT'S CONDITION.
--- NOTE | 2020-02-20 06:42 | NUR ---
Problems reprioritized. Patient report given, questions answered & plan of care reviewed with TITA RN.
[2020-02-20 07:24] LABS: ANISOCYTOSIS 2+; PLATELET ESTIMATE NORMAL
[2020-02-20 07:25] LABS: BURR CELLS 5; ELLIPTOCYTES 1+; ROULEAUX 1+; SCHISTOCYTES FEW
[2020-02-20] MEDS ORDERED: heparin 1,000 units/ml 10ml inj IV ONE (08:00)
[2020-02-20] MEDS ORDERED: epoetin 20,000 units/ml inj IV ONE (08:00)
[2020-02-20] MEDS: heparin, porcine 5000 units/ml vial SQ SCH ×2 (08:00→20:00)
[2020-02-20] MEDS ORDERED: heparin 1,000unit/ml 10ml vial 10 ML IV ONE (08:00)
[2020-02-20] MEDS ORDERED: heparin 1,000 units/ml 10ml inj HE ONE ×2 (08:00)
[2020-02-20] MEDS ORDERED: gelatin sponge, absorbable (Gelfoam 12-7MM) sponge TP ONE (08:02)
--- NOTE | 2020-02-20 08:44 | NUR ---
Received call from Surgical floor regarding this patient's TDC which has been bleeding through the night. Dressing removed, site cleaned with saline, gelfoam used to tract, D Stat dressing to cover and weighted bag placed to tract site. Patient instructed to let staff know if it begins bleeding again. Dr. Sadler made aware. Surgical floor given IR Doctor Wellness Director phone number [phone] and instructed to call that number and ask for IR Doc non destructive testing technician in future. All parties state understanding. Patient is due for dialysis today.
[2020-02-20] MEDS: sevelamer carbonate 800mg tablet PO SCH ×3 (09:42→17:51)
[2020-02-20] MEDS: metoprolol succinate 25mg (24-HOUR) SR. Tablet PO SCH (09:43)
[2020-02-20] MEDS: amLODIPine 5mg tablet PO SCH (09:43)
[2020-02-20 11:00] VITALS: BP 108/65
[2020-02-20 14:37] LABS: HBSAG SCREEN Negative (Negative)
[2020-02-20 18:00] VITALS: BP 168/92
--- NOTE | 2020-02-20 18:35 | NUR ---
Problems reprioritized. Patient report given, questions answered & plan of care reviewed with PATRICIA Carter.
--- NOTE | 2020-02-20 22:18 | NUR ---
Patient has a wrap on left foot. could not assess Addendum: 02/20/20 at 2238 by Ophelia HARVEY Amended: Links added.
[2020-02-21] VITALS: BP 167/86
[2020-02-21] MEDS: hyDRALAzine 10mg tablet PO SCH ×4 (01:27→20:34)
[2020-02-21] MEDS: ipratropium/albuterol 3ml nebule NEB SCH ×3 (02:35→11:59)
--- NOTE | 2020-02-21 03:32 | NUR ---
Student documentation: I have reviewed and agree with all interventions, assessments performed and documented by IDA STUDENT.
--- NOTE | 2020-02-21 06:39 | NUR ---
Problems reprioritized. Patient report given, questions answered & plan of care reviewed with LANA GOMEZ.
[2020-02-21 07:00] VITALS: BP 148/80
[2020-02-21] MEDS: sevelamer carbonate 800mg tablet PO SCH ×3 (08:41→17:30)
[2020-02-21] MEDS: heparin, porcine 5000 units/ml vial SQ SCH ×2 (08:41→20:34)
[2020-02-21] MEDS: amLODIPine 5mg tablet PO SCH (08:42)
[2020-02-21] MEDS: metoprolol succinate 25mg (24-HOUR) SR. Tablet PO SCH (08:42)
--- NOTE | 2020-02-21 10:07 | NUR ---
F/u: Noted pt started on HD per MD noted/orders in EMR. Will resume double meats BIDLD for additional needs on HD w/ DM ulcer; hold double eggs given Phos content. Dietary notified. Recommendations: 1) Continue renal diet. Consider discontinuation of CHO controlled diet to liberalize food options for satiety and last A1c 5.7% 2) Extra non-starchy vegetables with meals for satiety 3) Double protein BIDLD on HD 4) phos binder per MD on HD 5) Routine bowel care 6) Scaled weights per rx Addendum: 02/21/20 at [address] Amended: Links added.
[2020-02-21 11:36] VITALS: BP 145/78
[2020-02-21 12:33] LABS: EOSINOPHILS # (AUTO) 0.1 X10'3 (0-0.9); EOSINOPHILS % (AUTO) 2.9 % (0-6); HEMATOCRIT 24.8 % (42.0-52.0); HEMOGLOBIN 7.9 g/dl (14.0-17.9); LYMPHOCYTES # (AUTO) 0.7 X10'3 (1.1-4.8); LYMPHOCYTES % (AUTO) 20.6 % (21-51); MEAN CORPUSCULAR HEMOGLOBIN 29.7 PG (27.0-31.0); MEAN CORPUSCULAR VOLUME 92.9 FL (78-98); MEAN PLATELET VOLUME 7.3 FL (7.4-10.4); MONOCYTES # (AUTO) 0.4 X10'3 (0-0.9); MONOCYTES % (AUTO) 11.8 % (2-12); NEUTROPHILS # (AUTO) 2.3 X10'3 (1.8-7.7); NEUTROPHILS % (AUTO) 63.7 % (42-75); PLATELET COUNT 240 X10'3 (140-440); RED BLOOD COUNT 2.67 X10'6 (4.70-6.10); RED CELL DISTRIBUTION WIDTH 18.5 % (11.5-14.5); WHITE BLOOD COUNT 3.5 X10'3 (4.5-11.0)
[2020-02-21 12:43] LABS: ALBUMIN 2.2 G/DL (3.4-5.0); ANION GAP 7 (8-16); BLOOD UREA NITROGEN 55 MG/DL (7-18); BUN/CREATININE RATIO 9.8 (5.4-32.0); CALCIUM 7.7 MG/DL (8.5-10.1); CHLORIDE 107 MMOL/L (99-107); CREATININE 5.63 MG/DL (0.60-1.10); GLUCOSE 131 MG/DL (70-104); MAGNESIUM 2.2 MG/DL (1.5-2.4); PHOSPHORUS 4.8 MG/DL (2.3-4.5); POTASSIUM 4.5 MMOL/L (3.5-5.1); SODIUM 138 MMOL/L (135-145); TOTAL CARBON DIOXIDE 24.5 MMOL/L (24-32); eGFR 10 ML/MIN
[2020-02-21] MEDS ORDERED: ipratropium/albuterol 3ml nebule NEB PRN (16:00)
--- NOTE | 2020-02-21 18:19 | NUR ---
wound to left foot pictured and changed. no c/o pain. All cares given patient seen by Dr Doss and Dr Boland. Report given to Fitz GOMEZ
[2020-02-21 18:50] VITALS: BP 146/78
[2020-02-22] VITALS: BP 143/78
[2020-02-22] MEDS: hyDRALAzine 10mg tablet PO SCH ×4 (02:08→21:08)
[2020-02-22 05:19] LABS: BASOPHILS # (AUTO) 0.1 X10'3 (0-0.2); BASOPHILS % (AUTO) 1.7 % (0-1); EOSINOPHILS # (AUTO) 0.1 X10'3 (0-0.9); EOSINOPHILS % (AUTO) 2.1 % (0-6); HEMATOCRIT 25.8 % (42.0-52.0); HEMOGLOBIN 8.5 g/dl (14.0-17.9); LYMPHOCYTES # (AUTO) 0.9 X10'3 (1.1-4.8); LYMPHOCYTES % (AUTO) 25.5 % (21-51); MEAN CORPUSCULAR HEMOGLOBIN 30.7 PG (27.0-31.0); MEAN CORPUSCULAR HGB CONC 32.9 g/dL (33.0-36.5); MEAN CORPUSCULAR VOLUME 93.3 FL (78-98); MEAN PLATELET VOLUME 7.4 FL (7.4-10.4); MONOCYTES # (AUTO) 0.4 X10'3 (0-0.9); MONOCYTES % (AUTO) 11.9 % (2-12); NEUTROPHILS % (AUTO) 58.8 % (42-75); PLATELET COUNT 241 X10'3 (140-440); RED BLOOD COUNT 2.76 X10'6 (4.70-6.10); RED CELL DISTRIBUTION WIDTH 18.6 % (11.5-14.5); WHITE BLOOD COUNT 3.5 X10'3 (4.5-11.0)
[2020-02-22 05:23] LABS: ALBUMIN 2.4 G/DL (3.4-5.0); ANION GAP 9 (8-16); BLOOD UREA NITROGEN 56 MG/DL (7-18); CALCIUM 7.9 MG/DL (8.5-10.1); CHLORIDE 106 MMOL/L (99-107); CREATININE 6.24 MG/DL (0.60-1.10); GLUCOSE 92 MG/DL (70-104); MAGNESIUM 2.3 MG/DL (1.5-2.4); PHOSPHORUS 4.9 MG/DL (2.3-4.5); POTASSIUM 4.6 MMOL/L (3.5-5.1); SODIUM 139 MMOL/L (135-145); TOTAL CARBON DIOXIDE 24.3 MMOL/L (24-32); eGFR 9 ML/MIN
--- NOTE | 2020-02-22 06:16 | NUR ---
Patient in room TAMAR 352. I have received report from MARIANO GOMEZ and had the opportunity to ask questions and assume patient care.
--- NOTE | 2020-02-22 06:26 | NUR ---
Problems reprioritized. Patient report given, questions answered & plan of care reviewed with LANA. Addendum: 02/22/20 at 0626 by Terrence Mota RN Amended: Links added.
[2020-02-22 07:55] VITALS: BP 142/69
[2020-02-22 07:58] VITALS: BP 142/69
[2020-02-22] MEDS: metoprolol succinate 25mg (24-HOUR) SR. Tablet PO SCH (08:00)
[2020-02-22] MEDS: heparin, porcine 5000 units/ml vial SQ SCH ×2 (08:00→21:33)
[2020-02-22] MEDS: amLODIPine 5mg tablet PO SCH (08:00)
[2020-02-22] MEDS: sevelamer carbonate 800mg tablet PO SCH ×3 (08:00→17:30)
[2020-02-22 08:03] LABS: ANISOCYTOSIS 2+; PLATELET ESTIMATE NORMAL
[2020-02-22] MEDS ORDERED: heparin 1,000unit/ml 10ml vial 10 ML IV ONE (08:35)
[2020-02-22] MEDS ORDERED: epoetin 20,000 units/ml inj IV ONE (08:35)
[2020-02-22] MEDS ORDERED: albumin (human) 25% 100ml IV 100 ML IV PRN (08:35)
[2020-02-22] MEDS ORDERED: heparin 1,000 units/ml 10ml inj IV ONE (08:35)
[2020-02-22] MEDS ORDERED: heparin 1,000 units/ml 10ml inj HE ONE ×2 (08:40)
[2020-02-22 11:30] VITALS: BP 140/65
--- NOTE | 2020-02-22 12:49 | NUR ---
wound care done by wound team. Patient has no c/o pain. is for dialysis today. VSS
[2020-02-22] MEDS ORDERED: tuberculin, purif. prot. deriv. 5 units/0.1ml ID ONE (15:25)
--- NOTE | 2020-02-22 17:41 | NUR ---
patient c/o feeling terrible o2 sats 74-90% while. patient is sitting up. O2 turned up to 6L RT paged and DR Doss paged . Dr Boland pagejayda also who gave order to let promotion specialist Harpreet to remove 3-4L of fluid. RT repaged with order from Dr Doss to keep o2 sats90% and to do ABG's if required. will continue to monitor.
[2020-02-22 18:11] LABS: ABG BASE EXCESS -4.1 mmol/L (-2.0-2.0); ABG HCO3 19.5 mmol/L (22.0-26.0); ABG OXYGEN SATURATION 85.4 % (94-97); ABG PCO2 (T) 30.6 mmHg (35.0-48.0); ABG PO2 (T) 51.3 mmHg (75.0-100.0); ALLEN'S TEST POSITIVE; FLOW 8 L/min; FMetHb 0.1 % (0.0-1.5); FO2Hb 85.3 % (94-97)
--- NOTE | 2020-02-22 18:43 | NUR ---
Problems reprioritized. Patient report given, questions answered & plan of care reviewed with rose mary kenney.
--- NOTE | 2020-02-22 18:45 | NUR ---
Patient in room TAMAR 352. I have received report from LANA GOMEZ and had the opportunity to ask questions and assume patient care. PATIENT ON DIALYSIS AT THIS TIME.
[2020-02-22] MEDS: ipratropium/albuterol 3ml nebule NEB SCH ×2 (20:00→23:39)
[2020-02-22 21:00] VITALS: BP 182/103
[2020-02-22 22:30] VITALS: BP 158/86
[2020-02-23] VITALS (8 sets, daily range): BP systolic 135–163; BP diastolic 74–87
[2020-02-23] MEDS: hyDRALAzine 10mg tablet PO SCH ×4 (01:57→20:35)
[2020-02-23] MEDS: ipratropium/albuterol 3ml nebule NEB SCH ×5 (03:26→19:17)
[2020-02-23 05:21] LABS: EOSINOPHILS # (AUTO) 0.1 X10'3 (0-0.9); EOSINOPHILS % (AUTO) 1.9 % (0-6); HEMATOCRIT 24.4 % (42.0-52.0); LYMPHOCYTES # (AUTO) 0.9 X10'3 (1.1-4.8); LYMPHOCYTES % (AUTO) 21.8 % (21-51); MEAN CORPUSCULAR HEMOGLOBIN 30.2 PG (27.0-31.0); MEAN CORPUSCULAR HGB CONC 32.7 g/dL (33.0-36.5); MEAN CORPUSCULAR VOLUME 92.4 FL (78-98); MEAN PLATELET VOLUME 7.4 FL (7.4-10.4); MONOCYTES # (AUTO) 0.6 X10'3 (0-0.9); MONOCYTES % (AUTO) 13.8 % (2-12); NEUTROPHILS # (AUTO) 2.5 X10'3 (1.8-7.7); NEUTROPHILS % (AUTO) 61.5 % (42-75); PLATELET COUNT 233 X10'3 (140-440); RED BLOOD COUNT 2.64 X10'6 (4.70-6.10); RED CELL DISTRIBUTION WIDTH 17.9 % (11.5-14.5); WHITE BLOOD COUNT 4.1 X10'3 (4.5-11.0)
[2020-02-23 05:34] LABS: ALBUMIN 2.3 G/DL (3.4-5.0); ANION GAP 6 (8-16); BLOOD UREA NITROGEN 42 MG/DL (7-18); BUN/CREATININE RATIO 8.9 (5.4-32.0); CHLORIDE 104 MMOL/L (99-107); CREATININE 4.74 MG/DL (0.60-1.10); GLUCOSE 100 MG/DL (70-104); MAGNESIUM 2.1 MG/DL (1.5-2.4); POTASSIUM 4.4 MMOL/L (3.5-5.1); SODIUM 137 MMOL/L (135-145); TOTAL CARBON DIOXIDE 27.1 MMOL/L (24-32); eGFR 13 ML/MIN
--- NOTE | 2020-02-23 06:35 | NUR ---
Problems reprioritized. Patient report given, questions answered & plan of care reviewed with NARCISO GOMEZ.
[2020-02-23] MEDS ORDERED: heparin 1,000 units/ml 10ml inj IV ONE (07:00)
[2020-02-23] MEDS ORDERED: albumin (human) 25% 100ml IV 100 ML IV PRN (07:00)
[2020-02-23] MEDS ORDERED: epoetin 20,000 units/ml inj IV ONE (07:00)
[2020-02-23] MEDS ORDERED: heparin 1,000unit/ml 10ml vial 10 ML IV ONE (07:00)
[2020-02-23] MEDS ORDERED: heparin 1,000 units/ml 10ml inj HE ONE ×2 (07:05)
[2020-02-23] MEDS: metoprolol succinate 25mg (24-HOUR) SR. Tablet PO SCH (07:48)
[2020-02-23] MEDS: amLODIPine 5mg tablet PO SCH (07:48)
[2020-02-23] MEDS: sevelamer carbonate 800mg tablet PO SCH ×3 (07:48→19:00)
[2020-02-23] MEDS: heparin, porcine 5000 units/ml vial SQ SCH ×2 (07:49→20:35)
--- NOTE | 2020-02-23 09:32 | NUR ---
Called Report to More Farias on PCU all questions answered. Will transfer patient via hospital bed.
--- NOTE | 2020-02-23 10:00 | NUR ---
Patient arrived to PCU 3019. Oriented to room and to call light. VS stable. Patient on 8L high flow nasal cannula. I/R present bedside for thoracentesis.
--- NOTE | 2020-02-23 10:10 | NUR ---
Patient transferred to Tele 3019 via hospital bed with 10L Oxygen via high flow nasal canula. All patient belongings sent with patient including his prosthesis and cane. Patients chart and medications transferred over.
--- NOTE | 2020-02-23 11:00 | NUR ---
I agree with previous agricultural service technician. No changes noted to patient condition.
[2020-02-23] MEDS ORDERED: cefepime 1GM/NS ADD-VANTAGE 100 ML IV SCH (15:40)
--- NOTE | 2020-02-23 18:24 | NUR ---
Problems reprioritized. Patient report given, questions answered & plan of care reviewed with Jess GOMEZ. Patient stable at transfer of care.
--- NOTE | 2020-02-23 18:26 | NUR ---
[place] documentation: I have reviewed and agree with all interventions, assessments performed and documented by PATRICIA Anna. [place] Medication Administration: For this medication-pass time frame, all medication were reviewed, dispensed, administered and documented per hospital policy by PATRICIA Anna.
--- NOTE | 2020-02-23 18:30 | NUR ---
Patient in room PCU 3019. I have received report from PATRICIA COHN and had the opportunity to ask questions and assume patient care.
[2020-02-23] MEDS: levoFLOXACIN-Levaquin 250mg/D5 50 ML IV SCH (19:02)
[2020-02-24] MEDS: hyDRALAzine 10mg tablet PO SCH ×4 (01:17→19:47)
[2020-02-24 02:00] VITALS: BP 146/77
[2020-02-24] MEDS: ipratropium/albuterol 3ml nebule NEB SCH ×7 (03:44→23:28)
[2020-02-24 06:03] LABS: ALBUMIN 2.2 G/DL (3.4-5.0); ANION GAP 7 (8-16); BLOOD UREA NITROGEN 35 MG/DL (7-18); BUN/CREATININE RATIO 8.7 (5.4-32.0); CHLORIDE 104 MMOL/L (99-107); CREATININE 4.02 MG/DL (0.60-1.10); GLUCOSE 93 MG/DL (70-104); MAGNESIUM 1.8 MG/DL (1.5-2.4); PHOSPHORUS 3.8 MG/DL (2.3-4.5); POTASSIUM 4.3 MMOL/L (3.5-5.1); SODIUM 136 MMOL/L (135-145); eGFR 15 ML/MIN
[2020-02-24 06:05] LABS: BASOPHILS % (AUTO) 1.1 % (0-1); EOSINOPHILS # (AUTO) 0.1 X10'3 (0-0.9); EOSINOPHILS % (AUTO) 1.9 % (0-6); HEMATOCRIT 25.8 % (42.0-52.0); HEMOGLOBIN 8.3 g/dl (14.0-17.9); LYMPHOCYTES # (AUTO) 0.7 X10'3 (1.1-4.8); LYMPHOCYTES % (AUTO) 16.8 % (21-51); MEAN CORPUSCULAR HEMOGLOBIN 29.6 PG (27.0-31.0); MEAN CORPUSCULAR HGB CONC 32.2 g/dL (33.0-36.5); MEAN CORPUSCULAR VOLUME 92.1 FL (78-98); MEAN PLATELET VOLUME 7.3 FL (7.4-10.4); MONOCYTES # (AUTO) 0.6 X10'3 (0-0.9); MONOCYTES % (AUTO) 15.4 % (2-12); NEUTROPHILS # (AUTO) 2.7 X10'3 (1.8-7.7); NEUTROPHILS % (AUTO) 64.8 % (42-75); PLATELET COUNT 230 X10'3 (140-440); RED CELL DISTRIBUTION WIDTH 17.9 % (11.5-14.5); WHITE BLOOD COUNT 4.2 X10'3 (4.5-11.0)
--- NOTE | 2020-02-24 06:20 | NUR ---
Problems reprioritized. Patient report given, questions answered & plan of care reviewed with PATRICIA PARNELL.
--- NOTE | 2020-02-24 06:20 | NUR ---
Patient in room PCU 3019. I have received report from Ravin GOMEZ and had the opportunity to ask questions and assume patient care.
--- NOTE | 2020-02-24 06:39 | NUR ---
Patient in room PCU 3019. I have received report from PATRICIA Moran and had the opportunity to ask questions and assume patient care.
[2020-02-24 07:34] LABS: MONOCYTES % (MANUAL) 15 % (2-12); NEUTROPHILS % (MANUAL) 70 % (42-75); TOTAL CELLS COUNTED 100
[2020-02-24 07:35] LABS: ANISOCYTOSIS 1+; PLATELET ESTIMATE NORMAL
[2020-02-24] MEDS: levoFLOXACIN-Levaquin 250mg/D5 50 ML IV SCH (07:36)
[2020-02-24] MEDS: metoprolol succinate 25mg (24-HOUR) SR. Tablet PO SCH (07:37)
[2020-02-24] MEDS: heparin, porcine 5000 units/ml vial SQ SCH ×2 (07:39→19:47)
[2020-02-24] MEDS: amLODIPine 5mg tablet PO SCH (08:00)
[2020-02-24] MEDS: sevelamer carbonate 800mg tablet PO SCH ×3 (09:47→17:54)
[2020-02-24 11:00] VITALS: BP 133/71
[2020-02-24] MEDS: cefepime inj. 1 GM in normal saline 100ml IV soln 100 ML IV SCH (13:27)
[2020-02-24 15:00] VITALS: BP 138/72
--- NOTE | 2020-02-24 17:06 | NUR ---
Pt's PPD read by Alex GOMEZ. Original PPD test administered on 02/22/20 at 1707 to Pt's right medial anterior forearm. Right medial anterior forearm PPD test inspected and read; No induration or redness at PPD dermal injection site noted, <10mm.
[2020-02-24 18:00] VITALS: BP 152/76
--- NOTE | 2020-02-24 18:39 | NUR ---
Problems reprioritized. Patient report given, questions answered & plan of care reviewed with Jessenia GOMEZ.
[2020-02-25 02:00] VITALS: BP 133/71
[2020-02-25] MEDS: hyDRALAzine 10mg tablet PO SCH ×4 (03:10→19:35)
[2020-02-25] MEDS: ipratropium/albuterol 3ml nebule NEB SCH ×6 (03:26→23:00)
[2020-02-25 05:46] LABS: BASOPHILS % (AUTO) 0.7 % (0-1); EOSINOPHILS # (AUTO) 0.2 X10'3 (0-0.9); EOSINOPHILS % (AUTO) 4.7 % (0-6); HEMATOCRIT 23.8 % (42.0-52.0); HEMOGLOBIN 7.7 g/dl (14.0-17.9); LYMPHOCYTES # (AUTO) 0.6 X10'3 (1.1-4.8); LYMPHOCYTES % (AUTO) 15.2 % (21-51); MEAN CORPUSCULAR HGB CONC 32.3 g/dL (33.0-36.5); MEAN CORPUSCULAR VOLUME 92.8 FL (78-98); MEAN PLATELET VOLUME 7.1 FL (7.4-10.4); MONOCYTES # (AUTO) 0.7 X10'3 (0-0.9); MONOCYTES % (AUTO) 17.7 % (2-12); NEUTROPHILS # (AUTO) 2.3 X10'3 (1.8-7.7); NEUTROPHILS % (AUTO) 61.7 % (42-75); PLATELET COUNT 219 X10'3 (140-440); RED BLOOD COUNT 2.56 X10'6 (4.70-6.10); WHITE BLOOD COUNT 3.8 X10'3 (4.5-11.0)
[2020-02-25 05:57] LABS: ANION GAP 5 (8-16); BLOOD UREA NITROGEN 46 MG/DL (7-18); BUN/CREATININE RATIO 8.7 (5.4-32.0); CALCIUM 8.3 MG/DL (8.5-10.1); CHLORIDE 104 MMOL/L (99-107); GLUCOSE 128 MG/DL (70-104); MAGNESIUM 2.1 MG/DL (1.5-2.4); PHOSPHORUS 4.2 MG/DL (2.3-4.5); POTASSIUM 4.5 MMOL/L (3.5-5.1); SODIUM 137 MMOL/L (135-145); TOTAL CARBON DIOXIDE 27.7 MMOL/L (24-32); eGFR 11 ML/MIN
[2020-02-25 06:00] VITALS: BP 127/70
--- NOTE | 2020-02-25 06:36 | NUR ---
Patient in room PCU 3019. I have received report from Jessenia GOMEZ and had the opportunity to ask questions and assume patient care.
--- NOTE | 2020-02-25 06:40 | NUR ---
reported to days. noted pt resting at this time. no distress. noted NWB on left foot strict
[2020-02-25 07:01] LABS: TOTAL CELLS COUNTED 100
[2020-02-25 07:02] LABS: ANISOCYTOSIS 1+; PLATELET ESTIMATE NORMAL
[2020-02-25] MEDS: heparin, porcine 5000 units/ml vial SQ SCH ×2 (09:25→19:37)
[2020-02-25] MEDS: sevelamer carbonate 800mg tablet PO SCH ×3 (09:25→17:34)
[2020-02-25] MEDS: levoFLOXACIN-Levaquin 250mg/D5 50 ML IV SCH (09:26)
[2020-02-25] MEDS: cefepime inj. 1 GM in normal saline 100ml IV soln 100 ML IV SCH (09:26)
[2020-02-25] MEDS: metoprolol succinate 25mg (24-HOUR) SR. Tablet PO SCH (09:34)
[2020-02-25] MEDS: amLODIPine 5mg tablet PO SCH (09:34)
[2020-02-25] MEDS ORDERED: albumin (human) 25% 100ml IV 100 ML IV PRN (09:55)
[2020-02-25] MEDS ORDERED: epoetin 20,000 units/ml inj IV ONE (09:55)
[2020-02-25] MEDS ORDERED: heparin 1,000 units/ml 10ml inj IV ONE (09:55)
[2020-02-25] MEDS ORDERED: heparin 1,000unit/ml 10ml vial 10 ML IV ONE (09:55)
[2020-02-25] MEDS ORDERED: heparin 1,000 units/ml 10ml inj HE ONE ×2 (10:00)
[2020-02-25] MEDS ORDERED: AMLO10TA13 PO (10:59)
[2020-02-25] MEDS ORDERED: hyDRALAzine tablet PO (10:59)
[2020-02-25] MEDS ORDERED: METO50TA7 PO (10:59)
[2020-02-25 11:00] VITALS: BP 154/74
[2020-02-25 15:45] VITALS: BP 133/65
--- NOTE | 2020-02-25 17:09 | NUR ---
Dr Hubbard called and stated pt is OK to be DC on his part. Hospitalist may DC him tomorrow and SS already has all details worked out got pt to fo to [facility] for his care. Dr Antony the hospitalist kris be notified.
--- NOTE | 2020-02-25 17:53 | NUR ---
PAGER ID: [phone] MESSAGE: Roshan Lara 3019- FYI Dr Hubbard said he is OK to DC pt whenever you would like to DC him. He said he can go after his Dialysis today but he is a [facility] 5 pm cathryn.[email or web address] 02/25 plz. rufino benitez. Laura :)
--- NOTE | 2020-02-25 18:28 | NUR ---
Problems reprioritized. Patient report given, questions answered & plan of care reviewed with Regine GOMEZ.
--- NOTE | 2020-02-25 18:32 | NUR ---
Patient in room PCU 3019. I have received report from Laura GOMEZ and had the opportunity to ask questions and assume patient care.
[2020-02-25 22:00] VITALS: BP 146/76
[2020-02-26 02:00] VITALS: BP 137/64
[2020-02-26] MEDS: hyDRALAzine 10mg tablet PO SCH ×2 (02:50→07:24)
[2020-02-26 06:00] VITALS: BP 118/82
--- NOTE | 2020-02-26 06:04 | NUR ---
Problems reprioritized. Patient report given, questions answered & plan of care reviewed with Ricco GOMEZ.
--- NOTE | 2020-02-26 06:05 | NUR ---
Patient in room PCU 3019. I have received report from Maira GOMEZ and had the opportunity to ask questions and assume patient care.
[2020-02-26 06:07] LABS: ALBUMIN 2.1 G/DL (3.4-5.0); ANION GAP 7 (8-16); BLOOD UREA NITROGEN 30 MG/DL (7-18); BUN/CREATININE RATIO 7.3 (5.4-32.0); CHLORIDE 107 MMOL/L (99-107); CREATININE 4.12 MG/DL (0.60-1.10); GLUCOSE 88 MG/DL (70-104); PHOSPHORUS 3.3 MG/DL (2.3-4.5); POTASSIUM 4.2 MMOL/L (3.5-5.1); SODIUM 140 MMOL/L (135-145); TOTAL CARBON DIOXIDE 25.9 MMOL/L (24-32); eGFR 15 ML/MIN
[2020-02-26 06:15] LABS: BASOPHILS % (AUTO) 0.8 % (0-1); EOSINOPHILS # (AUTO) 0.3 X10'3 (0-0.9); EOSINOPHILS % (AUTO) 6.5 % (0-6); HEMATOCRIT 25.9 % (42.0-52.0); HEMOGLOBIN 8.4 g/dl (14.0-17.9); LYMPHOCYTES # (AUTO) 0.7 X10'3 (1.1-4.8); LYMPHOCYTES % (AUTO) 17.3 % (21-51); MEAN CORPUSCULAR HEMOGLOBIN 29.9 PG (27.0-31.0); MEAN CORPUSCULAR HGB CONC 32.6 g/dL (33.0-36.5); MEAN CORPUSCULAR VOLUME 91.8 FL (78-98); MONOCYTES # (AUTO) 0.6 X10'3 (0-0.9); NEUTROPHILS # (AUTO) 2.4 X10'3 (1.8-7.7); NEUTROPHILS % (AUTO) 60.4 % (42-75); PLATELET COUNT 223 X10'3 (140-440); RED BLOOD COUNT 2.82 X10'6 (4.70-6.10); RED CELL DISTRIBUTION WIDTH 17.6 % (11.5-14.5)
[2020-02-26] MEDS: ipratropium/albuterol 3ml nebule NEB SCH (07:05)
[2020-02-26] MEDS: amLODIPine 5mg tablet PO SCH (07:23)
[2020-02-26 07:24] VITALS: BP_SYST 118
[2020-02-26] MEDS: metoprolol succinate 25mg (24-HOUR) SR. Tablet PO SCH (07:24)
[2020-02-26] MEDS: heparin, porcine 5000 units/ml vial SQ SCH (07:25)
[2020-02-26] MEDS: sevelamer carbonate 800mg tablet PO SCH (07:26)
[2020-02-26] MEDS: cefepime inj. 1 GM in normal saline 100ml IV soln 100 ML IV SCH (07:27)
[2020-02-26] MEDS ORDERED: mineral oil/petrolatum, white cream 113gm jar TP SCH (08:00)
--- NOTE | 2020-02-26 12:43 | NUR ---
pt is stable for discharge per md orders, discharge instructions reviewed w/ pt and all questions answered, new med prescriptions called to [facility], tele removed and returned, PIV dc'ed intact, clean dry dressing placed, pt discharges @ 1245, wheeled down to [facility] w/ hospital staff to cab, cab will take pt to [facility] for dialysis appt, all belongings w/ pt at time of discharge.
[2020-02-27] MEDS ORDERED: levoFLOXACIN-Levaquin 250mg/D5 50 ML IV SCH (08:00)
== END 2020-02-26 13:30 | disposition home or self-care (01) | DRG 194 ==
LOC: ER 12:47 → ED HOLD 23:08 → SUR 3N 02-16 02:10 → PCU 3S 02-23 10:00
PROVIDERS: ADMIT Internal Medicine; ATTEND Family Medicine
PROC: 3E02340 Introduction of Influenza Vaccine into Muscle, Percutaneous Approach (ICD-10-PCS; 2020-02-16)
PROC: 3E0234Z Introduction of Serum, Toxoid and Vaccine into Muscle, Percutaneous Approach (ICD-10-PCS; 2020-02-16)
PROC: 0JH63XZ Insertion of Tunneled Vascular Access Device into Chest Subcutaneous Tissue and Fascia, Percutaneous Approach (ICD-10-PCS; 2020-02-19)
PROC: 02H633Z Insertion of Infusion Device into Right Atrium, Percutaneous Approach (ICD-10-PCS; 2020-02-19)
PROC: B548ZZA Ultrasonography of Superior Vena Cava, Guidance (ICD-10-PCS; 2020-02-19)
PROC: 0W9B3ZZ Drainage of Left Pleural Cavity, Percutaneous Approach (ICD-10-PCS; principal; 2020-02-23)
PROC: 0W993ZZ Drainage of Right Pleural Cavity, Percutaneous Approach (ICD-10-PCS; 2020-02-23)
DX: I13.2 Hypertensive heart and chronic kidney disease with heart failure and with stage 5 chronic kidney disease, or end stage renal disease (principal); N17.9 Acute kidney failure, unspecified; N18.6 End stage renal disease; E87.5 Hyperkalemia; D64.9 Anemia, unspecified; E11.22 Type 2 diabetes mellitus with diabetic chronic kidney disease; E11.42 Type 2 diabetes mellitus with diabetic polyneuropathy; E11.65 Type 2 diabetes mellitus with hyperglycemia; E87.2 Acidosis; J91.8 Pleural effusion in other conditions classified elsewhere; I27.20 Pulmonary hypertension, unspecified; I50.23 Acute on chronic systolic (congestive) heart failure; Z59.0 Homelessness; Z89.511 Acquired absence of right leg below knee; Z89.512 Acquired absence of left leg below knee; Z91.19 Patient's noncompliance with other medical treatment and regimen; Z99.2 Dependence on renal dialysis; Z20.828 Contact with and (suspected) exposure to other viral communicable diseases
CPT/HCPCS: 32555; 36415; 36561; 36600; 71045; 76937; 80048; 80053; 80305; 81001; 82272; 82570; 82803; 82948; 83036; 83735; 84100; 84156; 84300; 85007; 85008; 85018; 85025; 85610; 85730; 86705; 86706; 87081; 87207; 87340; 87635; 90732; 93306; 93308; 94640; 94760; 96374; 97161; 97530; 99285; A9270; C1750; C1769; C1894; G0378; J0360; J0692; J1644; J1815; J1956; J2150; J7030; Q4081

== ENCOUNTER → 2020-04-21 | Day surgery (SDC) | payer MEDICAID ==
[~2020-04-21] MED LIST changes: +AMLO10TA13 PO; -CLIN-97 PO; -LIDO1ADH TOP; +LIDOcaine 2% 5ml jelly ONE; -METO-395 PO; +METO50TA7 PO; -METR500T PO; -NOR5T PO; +hyDRALAzine tablet PO
== END | disposition home or self-care (01) ==
LOC: WOUND CARE 11:11
PROVIDERS: ATTEND Nurse Practitioner
DX: T87.89 Other complications of amputation stump (principal); E11.621 Type 2 diabetes mellitus with foot ulcer; L97.522 Non-pressure chronic ulcer of other part of left foot with fat layer exposed; E11.40 Type 2 diabetes mellitus with diabetic neuropathy, unspecified; E11.65 Type 2 diabetes mellitus with hyperglycemia; E11.22 Type 2 diabetes mellitus with diabetic chronic kidney disease; I13.2 Hypertensive heart and chronic kidney disease with heart failure and with stage 5 chronic kidney disease, or end stage renal disease; D63.1 Anemia in chronic kidney disease; N18.6 End stage renal disease; I50.22 Chronic systolic (congestive) heart failure; E11.69 Type 2 diabetes mellitus with other specified complication; M86.472 Chronic osteomyelitis with draining sinus, left ankle and foot; M86.471 Chronic osteomyelitis with draining sinus, right ankle and foot; E11.42 Type 2 diabetes mellitus with diabetic polyneuropathy; E11.319 Type 2 diabetes mellitus with unspecified diabetic retinopathy without macular edema; E11.52 Type 2 diabetes mellitus with diabetic peripheral angiopathy with gangrene; I87.2 Venous insufficiency (chronic) (peripheral); L84 Corns and callosities; E78.5 Hyperlipidemia, unspecified; F19.10 Other psychoactive substance abuse, uncomplicated; Z86.718 Personal history of other venous thrombosis and embolism; Z89.422 Acquired absence of other left toe(s); Z79.899 Other long term (current) drug therapy; Z79.4 Long term (current) use of insulin; Z89.012 Acquired absence of left thumb; Z90.49 Acquired absence of other specified parts of digestive tract; Z89.021 Acquired absence of right finger(s); Z68.27 Body mass index [BMI] 27.0-27.9, adult; Z89.511 Acquired absence of right leg below knee; Y83.5 Amputation of limb(s) as the cause of abnormal reaction of the patient, or of later complication, without mention of misadventure at the time of the procedure
CPT/HCPCS: 11042; 82948

== ENCOUNTER 2020-05-03 11:43 | Outpatient (CLI) | payer MEDICAID ==
[~2020-05-03 11:43] MED LIST changes: -LIDOcaine 2% 5ml jelly ONE
[2020-05-03] MEDS ORDERED: LIDOcaine 2% 5ml jelly ONE (12:29)
== END 2020-05-03 23:59 | disposition home or self-care (01) ==
LOC: WOUND CARE 11:43
PROVIDERS: ATTEND Nurse Practitioner Family
DX: T87.89 Other complications of amputation stump (principal); E11.621 Type 2 diabetes mellitus with foot ulcer; L97.522 Non-pressure chronic ulcer of other part of left foot with fat layer exposed; E11.40 Type 2 diabetes mellitus with diabetic neuropathy, unspecified; E11.65 Type 2 diabetes mellitus with hyperglycemia; E11.22 Type 2 diabetes mellitus with diabetic chronic kidney disease; I13.2 Hypertensive heart and chronic kidney disease with heart failure and with stage 5 chronic kidney disease, or end stage renal disease; D63.1 Anemia in chronic kidney disease; N18.6 End stage renal disease; I50.22 Chronic systolic (congestive) heart failure; E11.69 Type 2 diabetes mellitus with other specified complication; M86.472 Chronic osteomyelitis with draining sinus, left ankle and foot; M86.471 Chronic osteomyelitis with draining sinus, right ankle and foot; E11.42 Type 2 diabetes mellitus with diabetic polyneuropathy; E11.319 Type 2 diabetes mellitus with unspecified diabetic retinopathy without macular edema; E11.52 Type 2 diabetes mellitus with diabetic peripheral angiopathy with gangrene; I87.2 Venous insufficiency (chronic) (peripheral); L84 Corns and callosities; E78.5 Hyperlipidemia, unspecified; F19.10 Other psychoactive substance abuse, uncomplicated; Z86.718 Personal history of other venous thrombosis and embolism; Z89.422 Acquired absence of other left toe(s); Z79.899 Other long term (current) drug therapy; Z79.4 Long term (current) use of insulin; Z89.012 Acquired absence of left thumb; Z90.49 Acquired absence of other specified parts of digestive tract; Z89.021 Acquired absence of right finger(s); Z68.27 Body mass index [BMI] 27.0-27.9, adult; Z89.511 Acquired absence of right leg below knee; Y83.5 Amputation of limb(s) as the cause of abnormal reaction of the patient, or of later complication, without mention of misadventure at the time of the procedure
CPT/HCPCS: 82948; 97597

== ENCOUNTER → 2020-07-14 | Outpatient (CLI) | payer MEDICAID ==
[~2020-07-14] MED LIST changes: +LIDOcaine 2% 5ml jelly ONE
== END | disposition home or self-care (01) ==
LOC: WOUND CARE 10:09 → EDSTATUS 10:30
PROVIDERS: ATTEND Nurse Practitioner
DX: T87.89 Other complications of amputation stump (principal); E11.621 Type 2 diabetes mellitus with foot ulcer; L97.522 Non-pressure chronic ulcer of other part of left foot with fat layer exposed; E11.40 Type 2 diabetes mellitus with diabetic neuropathy, unspecified; E11.65 Type 2 diabetes mellitus with hyperglycemia; E11.22 Type 2 diabetes mellitus with diabetic chronic kidney disease; I13.2 Hypertensive heart and chronic kidney disease with heart failure and with stage 5 chronic kidney disease, or end stage renal disease; D63.1 Anemia in chronic kidney disease; N18.6 End stage renal disease; I50.22 Chronic systolic (congestive) heart failure; E11.69 Type 2 diabetes mellitus with other specified complication; M86.472 Chronic osteomyelitis with draining sinus, left ankle and foot; M86.471 Chronic osteomyelitis with draining sinus, right ankle and foot; E11.42 Type 2 diabetes mellitus with diabetic polyneuropathy; E11.319 Type 2 diabetes mellitus with unspecified diabetic retinopathy without macular edema; E11.52 Type 2 diabetes mellitus with diabetic peripheral angiopathy with gangrene; I87.2 Venous insufficiency (chronic) (peripheral); L84 Corns and callosities; E78.5 Hyperlipidemia, unspecified; F19.10 Other psychoactive substance abuse, uncomplicated; Z86.718 Personal history of other venous thrombosis and embolism; Z89.422 Acquired absence of other left toe(s); Z79.899 Other long term (current) drug therapy; Z79.4 Long term (current) use of insulin; Z89.012 Acquired absence of left thumb; Z90.49 Acquired absence of other specified parts of digestive tract; Z89.021 Acquired absence of right finger(s); Z68.27 Body mass index [BMI] 27.0-27.9, adult; Z89.511 Acquired absence of right leg below knee; Y83.5 Amputation of limb(s) as the cause of abnormal reaction of the patient, or of later complication, without mention of misadventure at the time of the procedure
CPT/HCPCS: 11042; 82948

== ENCOUNTER 2020-09-23 17:17 | Inpatient (IN) | payer MEDICAID ==
[~2020-09-23] VITALS: Ht 190.5 cm; Wt 77.0 kg
[2020-09-23] VITALS (7 sets, daily range): BP systolic 57–154; BP diastolic 31–55
[~2020-09-23 17:17] MED LIST changes: -LIDOcaine 2% 5ml jelly ONE; +epiNEPHrine 0.1mg/ml 10ml syringe ONE
[2020-09-23 18:14] LABS: BASOPHILS # (AUTO) 0.1 X10'3 (0-0.2); MONOCYTES # (AUTO) 1.4 X10'3 (0-0.9); RED BLOOD COUNT 1.86 X10'6 (4.70-6.10)
[2020-09-23 18:16] LABS: BASOPHILS % (AUTO) 0.6 % (0-1); EOSINOPHILS % (AUTO) 0.1 % (0-6); LYMPHOCYTES # (AUTO) 0.3 X10'3 (1.1-4.8); LYMPHOCYTES % (AUTO) 1.2 % (21-51); MEAN CORPUSCULAR HEMOGLOBIN 31.8 PG (27.0-31.0); MEAN CORPUSCULAR VOLUME 99.4 FL (78-98); MEAN PLATELET VOLUME 7.5 FL (7.4-10.4); MONOCYTES % (AUTO) 5.7 % (2-12); NEUTROPHILS # (AUTO) 22.9 X10'3 (1.8-7.7); NEUTROPHILS % (AUTO) 92.4 % (42-75); PLATELET COUNT 282 X10'3 (140-440); RED CELL DISTRIBUTION WIDTH 16.2 % (11.5-14.5); WHITE BLOOD COUNT 24.7 X10'3 (4.5-11.0)
--- NOTE | 2020-09-23 18:26 | NUR ---
report given by RN, assumed care.
[2020-09-23 18:28] LABS: HEMATOCRIT 18.5 % (42.0-52.0); HEMOGLOBIN 5.9 g/dl (14.0-17.9)
[2020-09-23 18:38] LABS: ABG BASE EXCESS -24.5 mmol/L (-2.0-2.0); ABG HCO3 4.2 mmol/L (22.0-26.0); ABG OXYGEN SATURATION 93.2 % (94-97); ABG PCO2 (T) 16.3 mmHg (35.0-48.0); ABG PO2 (T) 91.9 mmHg (75.0-100.0); ALLEN'S TEST POSITIVE; FLOW 3 L/min; FMetHb 0.1 % (0.0-1.5); FO2Hb 92.2 % (94-97)
[2020-09-23 18:41] LABS: ALANINE AMINOTRANSFERASE 36 U/L (12-78); ALBUMIN 2.3 G/DL (3.4-5.0); ALBUMIN/GLOBULIN RATIO 0.3 (1.1-1.5); ALKALINE PHOSPHATASE 109 IU/L (46-116); ANION GAP 26 (8-16); ASPARTATE AMINO TRANSFERASE 47 U/L (10-37); BILIRUBIN,TOTAL 0.4 MG/DL (0.1-1.0); CALCIUM 7.7 MG/DL (8.5-10.1); CHLORIDE 101 MMOL/L (99-107); GLUCOSE 180 MG/DL (70-104); MAGNESIUM 2.7 MG/DL (1.5-2.4); SODIUM 133 MMOL/L (135-145)
[2020-09-23 18:42] LABS: BLOOD UREA NITROGEN 193 MG/DL (7-18); BUN/CREATININE RATIO 9.6 (5.4-32.0); CREATININE 20.07 MG/DL (0.60-1.10); PHOSPHORUS 10.4 MG/DL (2.3-4.5); eGFR 2 ML/MIN
[2020-09-23] MEDS ORDERED: furosemide 10 MG/1 ML 10ml inj IV ONE (18:45)
[2020-09-23 18:46] LABS: POTASSIUM 6.8 MMOL/L (3.5-5.1)
[2020-09-23 18:47] LABS: TOTAL CARBON DIOXIDE 6.3 MMOL/L (24-32)
[2020-09-23] MEDS ORDERED: insulin regular, human U-100 3ml vial - multi-dose IV ONE (18:55)
[2020-09-23] MEDS ORDERED: sodium bicarbonate (8.4%) 1 mEq/ml syringe IV ONE (18:55)
[2020-09-23] MEDS ORDERED: dextrose 50%-water 50ml dispensing syringe IV ONE (18:55)
[2020-09-23] MEDS ORDERED: sodium polystyrene sulfonate 15gm/60ml oral suspension PO ONE (18:55)
[2020-09-23] MEDS ORDERED: calcium gluconate inj. 1 GM in normal saline 100ml IV soln 100 ML IV ONE (18:55)
[2020-09-23] MEDS ORDERED: albuterol 2.5 MG/3 ML nebule CONTNEB PRN (18:55)
--- NOTE | 2020-09-23 18:56 | NUR ---
per ERP, don't give unit of blood until pt is receiving dialysis. pt gave consent for blood and paper placed in chart.
--- NOTE | 2020-09-23 18:59 | NUR ---
per pt, okay for RN to sign consent in his behalf.
[2020-09-23] MEDS ORDERED: CALCIUM GLUC 1gm/50ml NACL,iso 50 ML IV ONE (19:03)
[2020-09-23] MEDS: sodium bicarbonate (8.4%) inj. 1 MEQ/ML ML IV ONE ×2 (19:26→19:53)
--- NOTE | 2020-09-23 19:27 | NUR ---
pt continues to remove bipap. called RT. RT aware and at bedside to give neb treatment.
[2020-09-23] MEDS ORDERED: sodium bicarbonate (8.4%) inj. 1 MEQ/ML ML IV ONE (19:40)
[2020-09-23 20:12] LABS: ANISOCYTOSIS 1+; PLATELET ESTIMATE NORMAL; TOTAL CELLS COUNTED 100
[2020-09-23 20:13] LABS: POLYCHROMASIA FEW
[2020-09-23] MEDS ORDERED: heparin 1,000unit/ml 10ml vial 10 ML IV ONE (20:55)
[2020-09-23] MEDS ORDERED: normal saline 1000ml 250 ML IV PRN (20:55)
[2020-09-23] MEDS ORDERED: EPOETIN ALFA-EPBX 20,000 UNIT/ML 1 ML MDV IV ONE (20:55)
[2020-09-23] MEDS ORDERED: vancomycin/NS 1 GM ADD-VANTAGE 250 ML IV ONE (20:55)
[2020-09-23] MEDS ORDERED: heparin 1,000 units/ml 10ml inj HE ONE ×2 (21:00)
--- NOTE | 2020-09-23 21:00 | NUR ---
I have received report from Malika GOMEZ in ED and had the opportunity to ask questions and assume patient care. Patient in room CICU 2007. Dialysis treatment being set up. Pt still on 4L NC, refusing Bipap, RR in 30s, O2 Sats 95%.
[2020-09-23 22:15] LABS: ABG BASE EXCESS -14.8 mmol/L (-2.0-2.0); ABG HCO3 12.5 mmol/L (22.0-26.0); ABG OXYGEN SATURATION 96.1 % (94-97); ABG PCO2 (T) 35.1 mmHg (35.0-48.0); ABG PO2 (T) 104.7 mmHg (75.0-100.0); ALLEN'S TEST POSITIVE; FCOHb 0.2 % (0.0-3.9); FMetHb 0.2 % (0.0-1.5); FO2Hb 95.7 % (94-97); PATIENT TEMPERATURE 36.7; TOTAL HEMOGLOBIN 5.8 G/dl (14.0-18.0)
[2020-09-23] MEDS ORDERED: albumin (Human) 5% 250ml 250 ML IV ONE ×2 (22:25→22:29)
--- NOTE | 2020-09-23 22:31 | NUR ---
Approximately when Dialysis started pt became unresponsive. Bipap was placed on Pt. Blood Gas drawn and is better than previous draw. BG is 124. Pt is Hypotensive and MD was notified and orders received. Warming blanket placed.
[2020-09-23 22:58] LABS: % IRON SATURATION 115 % (11-46); IRON 118 UG/DL (53-167); TOTAL IRON BINDING CAPACITY 103 UG/DL (259-388)
[2020-09-23 23:11] LABS: FERRITIN 2993 NG/ML (26-388)
[2020-09-23] MEDS ORDERED: etomidate 2mg/ml inj. IV ONE (23:20)
[2020-09-23] MEDS ORDERED: fentaNYL/PF 50MCG/1 ML 2ML syringe IV PRN (23:20)
[2020-09-23] MEDS ORDERED: rocuronium 10mg/ml inj IV ONE (23:20)
[2020-09-23] MEDS ORDERED: ipratropium/albuterol 3ml nebule NEB PRN (23:25)
[2020-09-23] MEDS: NORepinephrine 8mg/ 250ml NS 250 ML IV SCH (23:32)
[2020-09-24] VITALS (31 sets, daily range): BP systolic 63–157; BP diastolic 34–75
[2020-09-24] MEDS ORDERED: piperacillin/tazo 3.375gm/50ml 50 ML IV SCH
[2020-09-24] MEDS: dexmedetomidine/D5W 100mL 100 ML IV SCH ×7 (00:40→21:05)
[2020-09-24 01:50] LABS: ABG BASE EXCESS -9.2 mmol/L (-2.0-2.0); ABG HCO3 15.5 mmol/L (22.0-26.0); ABG OXYGEN SATURATION 94.7 % (94-97); ABG PCO2 (T) 28.1 mmHg (35.0-48.0); ABG PO2 (T) 77.2 mmHg (75.0-100.0); ALLEN'S TEST POSITIVE; FCOHb 0.3 % (0.0-3.9); FMetHb 0.5 % (0.0-1.5); FO2Hb 93.9 % (94-97); PATIENT TEMPERATURE 36.4; PEEP 5 cm H2O; RESPIRATORY RATE 20 b/min; TIDAL VOLUME 500 mL; TOTAL HEMOGLOBIN 6.5 G/dl (14.0-18.0)
[2020-09-24] MEDS: piperacillin/tazo 3.375gm/50ml 50 ML IV SCH ×3 (03:44→19:35)
[2020-09-24 04:36] LABS: EOSINOPHILS % (AUTO) 0 % (0-6); HEMOGLOBIN 7.2 g/dl (14.0-17.9); LYMPHOCYTES # (AUTO) 0.1 X10'3 (1.1-4.8)
[2020-09-24 04:38] LABS: BASOPHILS % (AUTO) 0 % (0-1); LYMPHOCYTES % (AUTO) 0.9 % (21-51); MEAN CORPUSCULAR HEMOGLOBIN 31.8 PG (27.0-31.0); MEAN CORPUSCULAR HGB CONC 34.3 g/dL (33.0-36.5); MEAN CORPUSCULAR VOLUME 92.8 FL (78-98); MEAN PLATELET VOLUME 6.5 FL (7.4-10.4); MONOCYTES # (AUTO) 0.6 X10'3 (0-0.9); MONOCYTES % (AUTO) 5.7 % (2-12); NEUTROPHILS # (AUTO) 9.6 X10'3 (1.8-7.7); NEUTROPHILS % (AUTO) 93.4 % (42-75); PLATELET COUNT 183 X10'3 (140-440); RED BLOOD COUNT 2.26 X10'6 (4.70-6.10); RED CELL DISTRIBUTION WIDTH 14.8 % (11.5-14.5); WHITE BLOOD COUNT 10.2 X10'3 (4.5-11.0)
--- NOTE | 2020-09-24 04:56 | NUR ---
2311 Code Willy called for Resp arrest. Intubated and CVL placed by ER MD. Levophed started for hypotension. Pt woke up when dialysis completed. Precedex for sedation/agitation. Copious amounts of secretions with deep suction. Sputum and Blood cultures drawn, Vanco and Zosyn given after dialysis. 2 units PRBC given and Levophed now off.
[2020-09-24 05:08] LABS: HEMOGLOBIN A1C 6.2 % (4.5-6.2)
[2020-09-24 05:11] LABS: ANION GAP 20 (8-16); BLOOD UREA NITROGEN 81 MG/DL (7-18); BUN/CREATININE RATIO 8.2 (5.4-32.0); CALCIUM 7.2 MG/DL (8.5-10.1); CHLORIDE 108 MMOL/L (99-107); CREATININE 9.92 MG/DL (0.60-1.10); GLUCOSE 147 MG/DL (70-104); MAGNESIUM 1.9 MG/DL (1.5-2.4); PHOSPHORUS 6.2 MG/DL (2.3-4.5); POTASSIUM 3.6 MMOL/L (3.5-5.1); SODIUM 147 MMOL/L (135-145); TOTAL CARBON DIOXIDE 19.1 MMOL/L (24-32); eGFR 7 ML/MIN
--- NOTE | 2020-09-24 06:25 | NUR ---
Problems reprioritized. Patient report given, questions answered & plan of care reviewed with Britta GOMEZ.
[2020-09-24] MEDS: pantoprazole 40 MG vial IV SCH (07:22)
[2020-09-24] MEDS ORDERED: rocuronium 10mg/ml inj IV ONE (08:00)
[2020-09-24] MEDS ORDERED: metoprolol succinate 25mg (24-HOUR) SR. Tablet PO SCH (08:00)
[2020-09-24] MEDS ORDERED: etomidate 2mg/ml inj. ONE (08:00)
[2020-09-24] MEDS ORDERED: amLODIPine 5mg tablet PO SCH (08:00)
--- NOTE | 2020-09-24 09:49 | NUR ---
Nutrition consult re: "hx DM, chronic wound, homeless, intubated". Pt with T2DM, current A1c is 6.2%, DM education not warranted at this time. Current scaled weight is stable with scaled wt hx in EMR 02/26/2020 (84 kg, bed scale). Pt with no documented significant decrease in muscle strength or edema. No concerns for malnutrition at this time. Pt admit for CHF, metabolic acidosis, PNA, acute respiratory failure, anemia, hyperkalemia, with ESRD on HD however pt reports not going to dialysis for the last three weeks. Pt received emergent dialysis upon admit. Pt s/p code blue and required intubation per RN notes. No TF consult at this time though pt documented with an OG tube in place. 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 Wound care has been consulted, pending assessment at this time. TF recommendations below for if prolonged intubation and to receive nutrition support. Will continue to follow closely. Recommendations: 1) IF TF, continuous Vital AF via OGT with goal rate of 80 mL/hr. To begin at 20 mL/hr and advance by 20 mL Q8H as tolerated to goal rate. To provide 1920 mL total volume/day, 2304 kcal, 144 g protein, and 1557 mL water 2) IF TF, additional water flush per MD given ESRD on HD and CHF 3) Monitor appropriateness for [place] with water flushes for wound healing pending wound care assessment 4) IF TF, prealbumin q Saturday/; daily weights 5) Routine bowel care Addendum: 09/24/20 at [address] Amended: Links added.
[2020-09-24] MEDS ORDERED: FOLI1TAB34 PO (12:10)
[2020-09-24] MEDS ORDERED: FURO80TA3 PO (12:10)
[2020-09-24] MEDS ORDERED: PHO667C PO (12:10)
[2020-09-24] MEDS ORDERED: AMLO10TA PO (12:11)
[2020-09-24] MEDS ORDERED: CLON1PAT14 TOP (12:11)
[2020-09-24] MEDS ORDERED: METO-384 PO (12:11)
[2020-09-24] MEDS ORDERED: vancomycin/NS 1 GM ADD-VANTAGE 250 ML IV PRN (13:35)
--- NOTE | 2020-09-24 13:46 | NUR ---
mónica (wallet, watch, phone) sent downstair to safe locker in ER.
[2020-09-24] MEDS ORDERED: midazolam 1 mg/ML 2ml injection IV ONE ×2 (14:35→15:45)
[2020-09-24 14:48] LABS: MEAN CORPUSCULAR HGB CONC 34.4 g/dL (33.0-36.5); MEAN PLATELET VOLUME 6.8 FL (7.4-10.4); PLATELET COUNT 163 X10'3 (140-440); WHITE BLOOD COUNT 10.6 X10'3 (4.5-11.0)
[2020-09-24 14:55] LABS: HEMATOCRIT 20.5 % (42.0-52.0)
--- NOTE | 2020-09-24 17:55 | NUR ---
Sputum culture called to Dr. Young
--- NOTE | 2020-09-24 18:35 | NUR ---
Problems reprioritized. Patient report given, questions answered & plan of care reviewed with Esthela.
--- NOTE | 2020-09-24 18:46 | NUR ---
Patient in room CICU 2007. I have received report from Britta GOMEZ and had the opportunity to ask questions and assume patient care.
[2020-09-24] MEDS: lactobacillus rhamnosus 10,000 MMU CELLS/CAPSULE PO SCH (19:34)
[2020-09-24] MEDS: NORepinephrine 8mg/ 250ml NS 250 ML IV SCH (21:04)
[2020-09-24 21:08] LABS: BASOPHILS % (AUTO) 0.1 % (0-1); EOSINOPHILS % (AUTO) 0 % (0-6); HEMOGLOBIN 7.3 g/dl (14.0-17.9); LYMPHOCYTES # (AUTO) 0.3 X10'3 (1.1-4.8); LYMPHOCYTES % (AUTO) 1.5 % (21-51); MEAN CORPUSCULAR HEMOGLOBIN 31.4 PG (27.0-31.0); MEAN CORPUSCULAR HGB CONC 33.6 g/dL (33.0-36.5); MEAN CORPUSCULAR VOLUME 93.3 FL (78-98); MEAN PLATELET VOLUME 7.2 FL (7.4-10.4); MONOCYTES # (AUTO) 1.6 X10'3 (0-0.9); NEUTROPHILS # (AUTO) 15.6 X10'3 (1.8-7.7); NEUTROPHILS % (AUTO) 89.4 % (42-75); PLATELET COUNT 177 X10'3 (140-440); RED BLOOD COUNT 2.33 X10'6 (4.70-6.10); RED CELL DISTRIBUTION WIDTH 15.3 % (11.5-14.5); WHITE BLOOD COUNT 17.5 X10'3 (4.5-11.0)
[2020-09-24 21:11] LABS: HEMATOCRIT 21.7 % (42.0-52.0)
[2020-09-24] MEDS ORDERED: propofol 1000mg/100ml bottle 100 ML IV SCH (21:45)
[2020-09-24] MEDS ORDERED: fentaNYL/PF 50MCG/1 ML 2ML syringe IV PRN (21:45)
[2020-09-24] MEDS ORDERED: propofol 10mg/ml 20ml vial IV PRN (21:45)
[2020-09-24 21:58] LABS: NUCLEATED RED BLOOD CELLS 3 /100WBC (0-0); PLATELET ESTIMATE NORMAL; SMUDGE CELLS FEW; TOTAL CELLS COUNTED 100; TOXIC GRANULATION 3+
[2020-09-24 22:00] LABS: ANISOCYTOSIS FEW
[2020-09-24] MEDS: FENTANYL-0.9 % NACL/PF 100 ML IV PRN (22:04)
--- NOTE | 2020-09-24 22:21 | NUR ---
Pt has increased RR up to 48, HR up and Sats decreased. Change in breath sounds on left, Chest Xray done and left side more luis out. Called Dr Huffman and orders received. Propofol and Fentanyl started with good results. Decrease in RR and HR Sats improving. Critical H/H results reviewed with Dr Huffman and currently no further action required.
[2020-09-24] MEDS: albuterol 2.5 MG/3 ML nebule NEB SCH (23:04)
[2020-09-25] VITALS (28 sets, daily range): BP systolic 81–133; BP diastolic 51–73
[2020-09-25 01:02] LABS: ABG BASE EXCESS -9.9 mmol/L (-2.0-2.0); ABG HCO3 15.1 mmol/L (22.0-26.0); ABG OXYGEN SATURATION 94.7 % (94-97); ABG PCO2 (T) 32.2 mmHg (35.0-48.0); ABG PO2 (T) 93.1 mmHg (75.0-100.0); ALLEN'S TEST POSITIVE; FCOHb 0.3 % (0.0-3.9); FMetHb 0.4 % (0.0-1.5); PATIENT TEMPERATURE 38.9; PEEP 10 cm H2O; RESPIRATORY RATE 24 b/min; TIDAL VOLUME 500 mL; TOTAL HEMOGLOBIN 7.7 G/dl (14.0-18.0)
[2020-09-25] MEDS: NORepinephrine 8mg/ 250ml NS 250 ML IV SCH (02:02)
[2020-09-25] MEDS ORDERED: acetaminophen 325mg/10.15ml oral unit dose solution PO PRN (02:05)
[2020-09-25 03:02] LABS: BASOPHILS % (AUTO) 0.1 % (0-1); EOSINOPHILS % (AUTO) 0 % (0-6); HEMATOCRIT 22.4 % (42.0-52.0); HEMOGLOBIN 7.4 g/dl (14.0-17.9); LYMPHOCYTES # (AUTO) 1.1 X10'3 (1.1-4.8); MEAN CORPUSCULAR HEMOGLOBIN 31.1 PG (27.0-31.0); MEAN CORPUSCULAR VOLUME 94.2 FL (78-98); MEAN PLATELET VOLUME 7.6 FL (7.4-10.4); MONOCYTES # (AUTO) 2.2 X10'3 (0-0.9); NEUTROPHILS # (AUTO) 18.3 X10'3 (1.8-7.7); NEUTROPHILS % (AUTO) 84.9 % (42-75); PLATELET COUNT 210 X10'3 (140-440); RED BLOOD COUNT 2.38 X10'6 (4.70-6.10); RED CELL DISTRIBUTION WIDTH 15.7 % (11.5-14.5); WHITE BLOOD COUNT 21.6 X10'3 (4.5-11.0)
[2020-09-25] MEDS: albuterol 2.5 MG/3 ML nebule NEB SCH ×6 (03:10→23:04)
[2020-09-25 03:16] LABS: ALANINE AMINOTRANSFERASE 24 U/L (12-78); ALBUMIN 1.6 G/DL (3.4-5.0); ALBUMIN/GLOBULIN RATIO 0.3 (1.1-1.5); ALKALINE PHOSPHATASE 86 IU/L (46-116); ANION GAP 17 (8-16); ASPARTATE AMINO TRANSFERASE 34 U/L (10-37); BILIRUBIN,TOTAL 0.7 MG/DL (0.1-1.0); BLOOD UREA NITROGEN 94 MG/DL (7-18); BUN/CREATININE RATIO 7.7 (5.4-32.0); CALCIUM 6.7 MG/DL (8.5-10.1); CHLORIDE 108 MMOL/L (99-107); CREATININE 12.26 MG/DL (0.60-1.10); GLUCOSE 94 MG/DL (70-104); MAGNESIUM 1.9 MG/DL (1.5-2.4); PHOSPHORUS 5.9 MG/DL (2.3-4.5); POTASSIUM 4.7 MMOL/L (3.5-5.1); SODIUM 143 MMOL/L (135-145); TOTAL CARBON DIOXIDE 17.9 MMOL/L (24-32); TOTAL PROTEIN 6.9 G/DL (6.4-8.2); TRIGLYCERIDES 92 MG/DL (20-135); eGFR 5 ML/MIN
[2020-09-25 03:24] LABS: VANCOMYCIN,RANDOM 14.7 UG/ML
[2020-09-25] MEDS: VANCOMYCIN LEVEL IV SCH (03:43)
[2020-09-25] MEDS: NORepinephrine inj. 32 MG in normal saline 250ml IV soln 218 ML IV SCH ×3 (04:30→23:16)
[2020-09-25] MEDS: vasopressin inj. 40 UNIT in normal saline 50ml IV soln 38 ML IV SCH ×2 (05:01→16:29)
--- NOTE | 2020-09-25 05:11 | NUR ---
Blood pressures too low for propofol, Vasopressin added. When Pt has an adequate blood pressure his RR and HR increase. Advised to try just Fentanyl if tolerated. Cooling blanket and Tylenol for high temp.
--- NOTE | 2020-09-25 06:27 | NUR ---
Problems reprioritized. Patient report given, questions answered & plan of care reviewed with Dia GOMEZ.
[2020-09-25 06:38] LABS: TOTAL CELLS COUNTED 100
[2020-09-25 06:39] LABS: ANISOCYTOSIS 1+; HYPOCHROMASIA 1+; PLATELET ESTIMATE NORMAL; POIKILOCYTOSIS 1+; ROULEAUX 1+; TOXIC GRANULATION 1+; TOXIC VACUOLATION 1+
--- NOTE | 2020-09-25 06:41 | NUR ---
Received report from PATRICIA Proctor
[2020-09-25] MEDS: pantoprazole 40 MG vial IV SCH (08:53)
[2020-09-25] MEDS: piperacillin/tazo 3.375gm/50ml 50 ML IV SCH ×2 (08:53→19:53)
[2020-09-25] MEDS: hydrocortisone sod succ/PF 100mg/2ml inj. IV SCH ×3 (08:54→19:52)
[2020-09-25] MEDS: lactobacillus rhamnosus 10,000 MMU CELLS/CAPSULE PO SCH ×2 (08:54→19:52)
[2020-09-25] MEDS ORDERED: dextrose 50%-water 50ml dispensing syringe IV PRN (09:00)
[2020-09-25 09:08] LABS: HBSAG SCREEN Negative (Negative)
[2020-09-25] MEDS ORDERED: MIDAZolam 5mg/ml 2ml vial IV ONE ×2 (10:10)
--- NOTE | 2020-09-25 11:30 | NUR ---
Dr. Young put in R chest tube, which initially drained 820 cc of sanguinous fluid, 70 cc of which was sent to lab to be cultured. Chest tube atrium marked at 750 cc.
[2020-09-25] MEDS: FENTANYL-0.9 % NACL/PF 100 ML IV PRN ×2 (11:55→20:55)
[2020-09-25] MEDS: dextrose 50%-water 50ml dispensing syringe IV PRN (14:03)
--- NOTE | 2020-09-25 15:30 | NUR ---
Dr. Young did a bronch at bedside. Bronchial and tracheal washings sent to lab to be cultured.
[2020-09-25 17:03] LABS: EOSINOPHILS % (AUTO) 0.1 % (0-6); LYMPHOCYTES # (AUTO) 0.6 X10'3 (1.1-4.8); MEAN CORPUSCULAR HGB CONC 31.3 g/dL (33.0-36.5)
[2020-09-25 17:05] LABS: BASOPHILS % (AUTO) 0.1 % (0-1); HEMATOCRIT 22.8 % (42.0-52.0); HEMOGLOBIN 7.1 g/dl (14.0-17.9); MEAN CORPUSCULAR HEMOGLOBIN 30.9 PG (27.0-31.0); MEAN CORPUSCULAR VOLUME 98.6 FL (78-98); MEAN PLATELET VOLUME 7.6 FL (7.4-10.4); MONOCYTES # (AUTO) 1.7 X10'3 (0-0.9); MONOCYTES % (AUTO) 5.3 % (2-12); NEUTROPHILS # (AUTO) 29.9 X10'3 (1.8-7.7); NEUTROPHILS % (AUTO) 92.5 % (42-75); PLATELET COUNT 191 X10'3 (140-440); RED BLOOD COUNT 2.31 X10'6 (4.70-6.10); RED CELL DISTRIBUTION WIDTH 16.5 % (11.5-14.5)
[2020-09-25 17:08] LABS: WHITE BLOOD COUNT 32.3 X10'3 (4.5-11.0)
[2020-09-25 17:27] LABS: ALANINE AMINOTRANSFERASE 280 U/L (12-78); ALBUMIN 1.5 G/DL (3.4-5.0); ALBUMIN/GLOBULIN RATIO 0.3 (1.1-1.5); ALKALINE PHOSPHATASE 98 IU/L (46-116); ANION GAP 26 (8-16); ASPARTATE AMINO TRANSFERASE 815 U/L (10-37); BILIRUBIN,DIRECT 1.1 MG/DL (0-0.3); BILIRUBIN,TOTAL 1.4 MG/DL (0.1-1.0); BLOOD UREA NITROGEN 107 MG/DL (7-18); BUN/CREATININE RATIO 8.2 (5.4-32.0); CALCIUM 6.6 MG/DL (8.5-10.1); CHLORIDE 107 MMOL/L (99-107); CREATININE 13.02 MG/DL (0.60-1.10); GLUCOSE 85 MG/DL (70-104); MAGNESIUM 2.4 MG/DL (1.5-2.4); SODIUM 145 MMOL/L (135-145); TOTAL PROTEIN 6.7 G/DL (6.4-8.2); eGFR 5 ML/MIN
[2020-09-25 17:32] LABS: POTASSIUM 8.1 MMOL/L (3.5-5.1); TOTAL CARBON DIOXIDE 11.9 MMOL/L (24-32)
--- NOTE | 2020-09-25 17:40 | NUR ---
Called Dr. Jean with critical lab values as follows: k+ 8.1, Bicarb 11.9, WBC 32.3, Hgb 7.1, and Hct 22.8. Dr. Jean ordered a stat k+ to verify critically high lab value. Repeat k+ resulted (8.3) at 1800, called Dr. Jean with result and he stated that patient would be started on CVVH. Orders received to treat Hyperkalemia. Dialysis nurse coming to set up CVVH.
[2020-09-25 17:44] LABS: PHOSPHORUS 14.7 MG/DL (2.3-4.5)
[2020-09-25] MEDS ORDERED: dextrose 50%-water 50ml dispensing syringe IV ONE (18:05)
[2020-09-25] MEDS ORDERED: albuterol 2.5 MG/3 ML nebule NEB ONE (18:05)
[2020-09-25] MEDS ORDERED: sodium bicarbonate (8.4%) 1 mEq/ml syringe IV ONE (18:05)
[2020-09-25] MEDS ORDERED: sodium polystyrene sulfonate 15gm/60ml oral suspension PO ONE (18:05)
[2020-09-25] MEDS ORDERED: insulin regular, human 10 units/0.1 ml syringe IV ONE (18:05)
[2020-09-25] MEDS ORDERED: calcium chloride 100 MG/1 ML inj IV ONE (18:05)
--- NOTE | 2020-09-25 18:15 | NUR ---
Patient in room CICU 2008. I have received report from Dia GOMEZ and had the opportunity to ask questions and assume patient care.
--- NOTE | 2020-09-25 18:15 | NUR ---
PATRICIA Villegas here to set up [facility].
--- NOTE | 2020-09-25 18:40 | NUR ---
Report given to PATRICIA Yao. All medications administered to treat patient for Hyperkalemia per Dr. Jean's orders. Dialysis nurse at bedside setting up CVVH.
[2020-09-25] MEDS: bicarb dialysis sol 2K+/3 Ca2+ 5,000 ML HE SCH ×3 (19:52→19:56)
[2020-09-25 20:20] LABS: MONOCYTES # (AUTO) 1.7 X10'3 (0-0.9); RED BLOOD COUNT 2.22 X10'6 (4.70-6.10)
[2020-09-25 20:22] LABS: BASOPHILS % (AUTO) 0.1 % (0-1); EOSINOPHILS # (AUTO) 0.1 X10'3 (0-0.9); EOSINOPHILS % (AUTO) 0.2 % (0-6); LYMPHOCYTES # (AUTO) 0.6 X10'3 (1.1-4.8); LYMPHOCYTES % (AUTO) 1.9 % (21-51); MEAN CORPUSCULAR HEMOGLOBIN 31.1 PG (27.0-31.0); MEAN CORPUSCULAR VOLUME 97.2 FL (78-98); MEAN PLATELET VOLUME 7.4 FL (7.4-10.4); MONOCYTES % (AUTO) 5.7 % (2-12); NEUTROPHILS # (AUTO) 27.5 X10'3 (1.8-7.7); NEUTROPHILS % (AUTO) 92.1 % (42-75); PLATELET COUNT 155 X10'3 (140-440); RED CELL DISTRIBUTION WIDTH 16.7 % (11.5-14.5)
[2020-09-25 20:26] LABS: HEMATOCRIT 21.6 % (42.0-52.0); HEMOGLOBIN 6.9 g/dl (14.0-17.9); WHITE BLOOD COUNT 29.9 X10'3 (4.5-11.0)
--- NOTE | 2020-09-25 21:00 | NUR ---
Critical values received and called to Dr Motley. New orders received for PRBC.
[2020-09-25 21:02] LABS: ALBUMIN 1.4 G/DL (3.4-5.0); ANION GAP 20 (8-16); BLOOD UREA NITROGEN 106 MG/DL (7-18); CHLORIDE 109 MMOL/L (99-107); CREATININE 11.84 MG/DL (0.60-1.10); GLUCOSE 110 MG/DL (70-104); MAGNESIUM 2.5 MG/DL (1.5-2.4); SODIUM 143 MMOL/L (135-145); eGFR 5 ML/MIN
[2020-09-25 21:03] LABS: PHOSPHORUS 12.4 MG/DL (2.3-4.5)
[2020-09-25 21:05] LABS: POTASSIUM 6.6 MMOL/L (3.5-5.1)
[2020-09-25 23:32] LABS: BASOPHILS # (AUTO) 0.1 X10'3 (0-0.2); EOSINOPHILS # (AUTO) 0.1 X10'3 (0-0.9); HEMOGLOBIN 7.6 g/dl (14.0-17.9); LYMPHOCYTES # (AUTO) 0.5 X10'3 (1.1-4.8); MEAN PLATELET VOLUME 7.7 FL (7.4-10.4); MONOCYTES # (AUTO) 1.1 X10'3 (0-0.9); NEUTROPHILS # (AUTO) 31.2 X10'3 (1.8-7.7)
[2020-09-25 23:34] LABS: BASOPHILS % (AUTO) 0.2 % (0-1); EOSINOPHILS % (AUTO) 0.5 % (0-6); HEMATOCRIT 23.7 % (42.0-52.0); LYMPHOCYTES % (AUTO) 1.5 % (21-51); MEAN CORPUSCULAR HEMOGLOBIN 31.1 PG (27.0-31.0); MEAN CORPUSCULAR HGB CONC 32.2 g/dL (33.0-36.5); MEAN CORPUSCULAR VOLUME 96.7 FL (78-98); MONOCYTES % (AUTO) 3.4 % (2-12); NEUTROPHILS % (AUTO) 94.4 % (42-75); PLATELET COUNT 177 X10'3 (140-440); RED BLOOD COUNT 2.45 X10'6 (4.70-6.10); RED CELL DISTRIBUTION WIDTH 16.2 % (11.5-14.5)
[2020-09-26] VITALS (29 sets, daily range): BP systolic 92–139; BP diastolic 55–75
[2020-09-26 00:05] LABS: ALBUMIN 1.6 G/DL (3.4-5.0); ANION GAP 21 (8-16); BLOOD UREA NITROGEN 90 MG/DL (7-18); BUN/CREATININE RATIO 9.2 (5.4-32.0); CALCIUM 7.2 MG/DL (8.5-10.1); CHLORIDE 107 MMOL/L (99-107); CREATININE 9.74 MG/DL (0.60-1.10); GLUCOSE 90 MG/DL (70-104); MAGNESIUM 2.3 MG/DL (1.5-2.4); SODIUM 145 MMOL/L (135-145); TOTAL CARBON DIOXIDE 17.2 MMOL/L (24-32); eGFR 7 ML/MIN
[2020-09-26 00:08] LABS: PHOSPHORUS 10.7 MG/DL (2.3-4.5)
[2020-09-26 00:09] LABS: POTASSIUM 6.1 MMOL/L (3.5-5.1)
--- NOTE | 2020-09-26 00:15 | NUR ---
Critical lab values received. Notified Dr Motley. No new orders at this time.
[2020-09-26] MEDS: dexmedetomidine/D5W 100mL 100 ML IV SCH (01:15)
[2020-09-26] MEDS: hydrocortisone sod succ/PF 100mg/2ml inj. IV SCH ×4 (01:46→20:41)
[2020-09-26] MEDS: bicarb dialysis sol 2K+/3 Ca2+ 5,000 ML HE SCH ×10 (01:49→23:05)
[2020-09-26 02:36] LABS: ABG HCO3 12.8 mmol/L (22.0-26.0); ABG OXYGEN SATURATION 92.5 % (94-97); ABG PCO2 (T) 39.7 mmHg (35.0-48.0); ABG PO2 (T) 73.3 mmHg (75.0-100.0); ALLEN'S TEST POSITIVE; FCOHb 0.3 % (0.0-3.9); FMetHb 0.3 % (0.0-1.5); FO2Hb 91.9 % (94-97); PATIENT TEMPERATURE 35.8; PEEP 10 cm H2O; RESPIRATORY RATE 24 b/min; TIDAL VOLUME 500 mL; TOTAL HEMOGLOBIN 10.7 G/dl (14.0-18.0)
[2020-09-26] MEDS: albuterol 2.5 MG/3 ML nebule NEB SCH ×6 (02:39→23:30)
[2020-09-26] MEDS: VANCOMYCIN LEVEL IV SCH (03:00)
[2020-09-26 03:21] LABS: HEMOGLOBIN 10.1 g/dl (14.0-17.9); LYMPHOCYTES # (AUTO) 0.4 X10'3 (1.1-4.8); MEAN CORPUSCULAR HEMOGLOBIN 31.5 PG (27.0-31.0); NEUTROPHILS # (AUTO) 28.5 X10'3 (1.8-7.7); RED BLOOD COUNT 3.19 X10'6 (4.70-6.10)
[2020-09-26 03:22] LABS: BASOPHILS # (AUTO) 0.1 X10'3 (0-0.2); BASOPHILS % (AUTO) 0.2 % (0-1); EOSINOPHILS # (AUTO) 0.5 X10'3 (0-0.9); EOSINOPHILS % (AUTO) 1.5 % (0-6); LYMPHOCYTES % (AUTO) 1.3 % (21-51); MEAN CORPUSCULAR HGB CONC 32.5 g/dL (33.0-36.5); MEAN CORPUSCULAR VOLUME 97.1 FL (78-98); MEAN PLATELET VOLUME 7.7 FL (7.4-10.4); MONOCYTES # (AUTO) 1.1 X10'3 (0-0.9); MONOCYTES % (AUTO) 3.6 % (2-12); NEUTROPHILS % (AUTO) 93.4 % (42-75); PLATELET COUNT 148 X10'3 (140-440)
[2020-09-26 03:24] LABS: WHITE BLOOD COUNT 30.5 X10'3 (4.5-11.0)
[2020-09-26] MEDS: sodium bicarbonate (8.4%) inj. 150 MEQ in dextrose 5%-water 1,000 ML IV SCH ×3 (03:39→19:20)
[2020-09-26 04:07] LABS: ALBUMIN 1.7 G/DL (3.4-5.0); ALBUMIN/GLOBULIN RATIO 0.3 (1.1-1.5); ALKALINE PHOSPHATASE 115 IU/L (46-116); ANION GAP 21 (8-16); BLOOD UREA NITROGEN 82 MG/DL (7-18); BUN/CREATININE RATIO 10.4 (5.4-32.0); CALCIUM 7.3 MG/DL (8.5-10.1); CHLORIDE 104 MMOL/L (99-107); CREATININE 7.88 MG/DL (0.60-1.10); GLUCOSE 73 MG/DL (70-104); MAGNESIUM 2.2 MG/DL (1.5-2.4); POTASSIUM 5.8 MMOL/L (3.5-5.1); SODIUM 141 MMOL/L (135-145); TOTAL CARBON DIOXIDE 16.4 MMOL/L (24-32); TOTAL PROTEIN 7.4 G/DL (6.4-8.2); VANCOMYCIN,RANDOM 8.3 UG/ML; eGFR 9 ML/MIN
[2020-09-26 04:27] LABS: NUCLEATED RED BLOOD CELLS 5 /100WBC (0-0); PLATELET ESTIMATE NORMAL; TOTAL CELLS COUNTED 100
[2020-09-26 04:28] LABS: POLYCHROMASIA FEW
[2020-09-26] MEDS ORDERED: albumin (Human) 5% 250ml 250 ML IV ONE (05:00)
[2020-09-26 05:09] LABS: PHOSPHORUS 9.3 MG/DL (2.3-4.5)
[2020-09-26 05:10] LABS: ALANINE AMINOTRANSFERASE 1678 U/L (12-78); ASPARTATE AMINO TRANSFERASE 4974 U/L (10-37)
--- NOTE | 2020-09-26 06:25 | NUR ---
Problems reprioritized. Patient report given, questions answered & plan of care reviewed with Dia GOMEZ.
--- NOTE | 2020-09-26 06:30 | NUR ---
Report given to PATRICIA Yao
[2020-09-26] MEDS ORDERED: heparin 1,000unit/ml 10ml vial 10 ML IV ONE (08:00)
[2020-09-26] MEDS ORDERED: EPOETIN ALFA-EPBX 20,000 UNIT/ML 1 ML MDV IV ONE (08:00)
[2020-09-26] MEDS ORDERED: normal saline 1000ml 250 ML IV PRN (08:00)
[2020-09-26] MEDS ORDERED: heparin 1,000 units/ml 10ml inj HE ONE ×2 (08:00)
[2020-09-26] MEDS ORDERED: vancomycin/NS 1 GM ADD-VANTAGE 250 ML IV ONE (08:30)
[2020-09-26] MEDS: piperacillin/tazo 3.375gm/50ml 50 ML IV SCH ×2 (08:34→16:57)
[2020-09-26 08:58] LABS: BASOPHILS % (AUTO) 0.2 % (0-1); EOSINOPHILS # (AUTO) 0.6 X10'3 (0-0.9); EOSINOPHILS % (AUTO) 2.1 % (0-6); HEMATOCRIT 30.6 % (42.0-52.0); LYMPHOCYTES # (AUTO) 0.3 X10'3 (1.1-4.8); MEAN CORPUSCULAR HEMOGLOBIN 31.5 PG (27.0-31.0); MEAN CORPUSCULAR HGB CONC 32.8 g/dL (33.0-36.5); MEAN CORPUSCULAR VOLUME 96.3 FL (78-98); MEAN PLATELET VOLUME 7.7 FL (7.4-10.4); MONOCYTES # (AUTO) 1.5 X10'3 (0-0.9); MONOCYTES % (AUTO) 5.1 % (2-12); NEUTROPHILS # (AUTO) 26.9 X10'3 (1.8-7.7); NEUTROPHILS % (AUTO) 91.6 % (42-75); PLATELET COUNT 127 X10'3 (140-440); RED BLOOD COUNT 3.18 X10'6 (4.70-6.10); RED CELL DISTRIBUTION WIDTH 15.7 % (11.5-14.5)
[2020-09-26 09:03] LABS: WHITE BLOOD COUNT 29.3 X10'3 (4.5-11.0)
[2020-09-26] MEDS: FENTANYL-0.9 % NACL/PF 100 ML IV PRN ×3 (09:04→23:18)
[2020-09-26] MEDS ORDERED: tPA-cathflo 2 MG/2 ml IV flush IVF ONE (09:05)
[2020-09-26] MEDS: lactobacillus rhamnosus 10,000 MMU CELLS/CAPSULE PO SCH ×2 (09:13→20:41)
[2020-09-26] MEDS: pantoprazole 40 MG vial IV SCH (09:13)
[2020-09-26 09:38] LABS: ALBUMIN 1.8 G/DL (3.4-5.0); ALBUMIN/GLOBULIN RATIO 0.3 (1.1-1.5); ALKALINE PHOSPHATASE 115 IU/L (46-116); ANION GAP 22 (8-16); BILIRUBIN,TOTAL 2.1 MG/DL (0.1-1.0); BLOOD UREA NITROGEN 71 MG/DL (7-18); BUN/CREATININE RATIO 10.4 (5.4-32.0); CALCIUM 6.9 MG/DL (8.5-10.1); CHLORIDE 102 MMOL/L (99-107); CREATININE 6.85 MG/DL (0.60-1.10); GLUCOSE 132 MG/DL (70-104); MAGNESIUM 2.1 MG/DL (1.5-2.4); PHOSPHORUS 8.9 MG/DL (2.3-4.5); POTASSIUM 5.7 MMOL/L (3.5-5.1); SODIUM 142 MMOL/L (135-145); TOTAL CARBON DIOXIDE 17.6 MMOL/L (24-32); eGFR 10 ML/MIN
[2020-09-26 10:01] LABS: ALANINE AMINOTRANSFERASE 1999 U/L (12-78)
[2020-09-26 10:18] LABS: ASPARTATE AMINO TRANSFERASE 4870 U/L (10-37)
[2020-09-26 10:46] LABS: NUCLEATED RED BLOOD CELLS 5 /100WBC (0-0); TOTAL CELLS COUNTED 100
[2020-09-26 10:47] LABS: BURR CELLS 1+; HYPOCHROMASIA 1+; PLATELET ESTIMATE DECREASED
[2020-09-26 10:54] LABS: SCHISTOCYTES FEW; TOXIC VACUOLATION 1+
[2020-09-26 10:59] LABS: ABG BASE EXCESS -14.2 mmol/L (-2.0-2.0); ABG HCO3 13.9 mmol/L (22.0-26.0); ABG PCO2 (T) 42.6 mmHg (35.0-48.0); ABG PO2 (T) 88.5 mmHg (75.0-100.0); ALLEN'S TEST POSITIVE; FCOHb 0.3 % (0.0-3.9); FMetHb 0.3 % (0.0-1.5); FO2Hb 92.4 % (94-97); PEEP 10 cm H2O; RESPIRATORY RATE 24 b/min; TIDAL VOLUME 500 mL; TOTAL HEMOGLOBIN 10.7 G/dl (14.0-18.0)
[2020-09-26] MEDS ORDERED: NORMAL SALINE IV STA ×2 (12:33→12:42)
[2020-09-26] MEDS ORDERED: TOBRAMYCIN IV STA ×2 (12:33→12:42)
[2020-09-26 14:15] LABS: BASOPHILS # (AUTO) 0.1 X10'3 (0-0.2); EOSINOPHILS # (AUTO) 0.7 X10'3 (0-0.9); MEAN CORPUSCULAR HGB CONC 33.2 g/dL (33.0-36.5); RED BLOOD COUNT 2.79 X10'6 (4.70-6.10)
[2020-09-26 14:17] LABS: BASOPHILS % (AUTO) 0.2 % (0-1); EOSINOPHILS % (AUTO) 2.5 % (0-6); HEMATOCRIT 26.8 % (42.0-52.0); HEMOGLOBIN 8.9 g/dl (14.0-17.9); LYMPHOCYTES # (AUTO) 0.2 X10'3 (1.1-4.8); LYMPHOCYTES % (AUTO) 0.9 % (21-51); MEAN CORPUSCULAR HEMOGLOBIN 31.8 PG (27.0-31.0); MEAN CORPUSCULAR VOLUME 95.8 FL (78-98); MEAN PLATELET VOLUME 6.9 FL (7.4-10.4); MONOCYTES # (AUTO) 1.6 X10'3 (0-0.9); MONOCYTES % (AUTO) 5.6 % (2-12); NEUTROPHILS # (AUTO) 25.6 X10'3 (1.8-7.7); NEUTROPHILS % (AUTO) 90.8 % (42-75); PLATELET COUNT 99 X10'3 (140-440); RED CELL DISTRIBUTION WIDTH 15.9 % (11.5-14.5)
[2020-09-26 14:22] LABS: WHITE BLOOD COUNT 28.1 X10'3 (4.5-11.0)
[2020-09-26 14:47] LABS: ALBUMIN 1.7 G/DL (3.4-5.0); ALBUMIN/GLOBULIN RATIO 0.4 (1.1-1.5); ALKALINE PHOSPHATASE 120 IU/L (46-116); ANION GAP 18 (8-16); BILIRUBIN,TOTAL 2.1 MG/DL (0.1-1.0); BLOOD UREA NITROGEN 69 MG/DL (7-18); BUN/CREATININE RATIO 10.8 (5.4-32.0); CALCIUM 6.3 MG/DL (8.5-10.1); CHLORIDE 103 MMOL/L (99-107); GLUCOSE 157 MG/DL (70-104); PHOSPHORUS 8.3 MG/DL (2.3-4.5); POTASSIUM 5.3 MMOL/L (3.5-5.1); SODIUM 141 MMOL/L (135-145); TOTAL CARBON DIOXIDE 20.4 MMOL/L (24-32); TOTAL PROTEIN 6.5 G/DL (6.4-8.2); eGFR 11 ML/MIN
[2020-09-26 14:50] LABS: ALANINE AMINOTRANSFERASE 2537 U/L (12-78)
[2020-09-26 14:59] LABS: ASPARTATE AMINO TRANSFERASE 6373 U/L (10-37)
[2020-09-26] MEDS ORDERED: heparin, porcine 5000 units/ml vial SQ SCH (16:00)
[2020-09-26] MEDS ORDERED: calcium chloride inj. 1,000 MG in normal saline 100ml IV soln 100 ML IV PRN (17:50)
[2020-09-26] MEDS ORDERED: calcium chloride inj. 1,000 MG in normal saline 100ml IV soln 90 ML IV PRN (18:02)
--- NOTE | 2020-09-26 18:30 | NUR ---
Patient in room CICU 2008. I have received report from PATRICIA Alvares and had the opportunity to ask questions and assume patient care.
--- NOTE | 2020-09-26 19:08 | NUR ---
Report given to PATRICIA Farley
[2020-09-26] MEDS: NORepinephrine inj. 32 MG in normal saline 250ml IV soln 218 ML IV SCH (19:20)
[2020-09-26] MEDS ORDERED: heparin 10,000 units/1 ML INJ IV ONE (19:50)
[2020-09-26] MEDS ORDERED: heparin 25,000 UNIT/250ml bag 250 ML IV SCH (19:50)
[2020-09-26] MEDS ORDERED: amiodarone 150mg/dext, iso-os 100 ML IV ONE (19:50)
[2020-09-26] MEDS ORDERED: heparin 10,000 units/1 ML INJ IV PRN (19:50)
--- NOTE | 2020-09-26 19:55 | NUR ---
Sherine YANEZ called to notify of patient going in rapid a.fib, HR up to 150's, sustaining in 130's/140's. ordered Amio bolus and gtt, cardiac heparin gtt, troponin now and in the am, and would like a media clerk consult in the am.
--- NOTE | 2020-09-26 20:20 | NUR ---
patient briefly popped back into NSR in the 90's and then went straight back into afib in the 120's.
[2020-09-26 20:29] LABS: PARTIAL THROMBOPLASTIN TIME 53 SECONDS (22-32)
[2020-09-26 20:30] LABS: LYMPHOCYTES # (AUTO) 0.4 X10'3 (1.1-4.8); RED CELL DISTRIBUTION WIDTH 15.8 % (11.5-14.5)
[2020-09-26 20:32] LABS: BASOPHILS # (AUTO) 0.1 X10'3 (0-0.2); BASOPHILS % (AUTO) 0.4 % (0-1); EOSINOPHILS # (AUTO) 0.7 X10'3 (0-0.9); EOSINOPHILS % (AUTO) 2.4 % (0-6); HEMATOCRIT 28.4 % (42.0-52.0); HEMOGLOBIN 9.4 g/dl (14.0-17.9); LYMPHOCYTES % (AUTO) 1.5 % (21-51); MEAN CORPUSCULAR HEMOGLOBIN 31.5 PG (27.0-31.0); MEAN CORPUSCULAR VOLUME 95.3 FL (78-98); MEAN PLATELET VOLUME 7.6 FL (7.4-10.4); MONOCYTES # (AUTO) 1.8 X10'3 (0-0.9); MONOCYTES % (AUTO) 6.6 % (2-12); NEUTROPHILS # (AUTO) 24.7 X10'3 (1.8-7.7); NEUTROPHILS % (AUTO) 89.1 % (42-75); PLATELET COUNT 108 X10'3 (140-440); RED BLOOD COUNT 2.98 X10'6 (4.70-6.10)
[2020-09-26] MEDS: amiodarone/D5 360MG/200ML BAG 200 ML IV SCH (20:32)
[2020-09-26 20:38] LABS: WHITE BLOOD COUNT 27.7 X10'3 (4.5-11.0)
[2020-09-26 20:41] LABS: ALBUMIN 1.7 G/DL (3.4-5.0); ALBUMIN/GLOBULIN RATIO 0.3 (1.1-1.5); ALKALINE PHOSPHATASE 155 IU/L (46-116); ANION GAP 18 (8-16); BILIRUBIN,TOTAL 2.2 MG/DL (0.1-1.0); BLOOD UREA NITROGEN 55 MG/DL (7-18); BUN/CREATININE RATIO 11.9 (5.4-32.0); CALCIUM 7.8 MG/DL (8.5-10.1); CHLORIDE 101 MMOL/L (99-107); CREATININE 4.63 MG/DL (0.60-1.10); GLUCOSE 171 MG/DL (70-104); PHOSPHORUS 6.4 MG/DL (2.3-4.5); POTASSIUM 4.7 MMOL/L (3.5-5.1); SODIUM 141 MMOL/L (135-145); TOTAL CARBON DIOXIDE 21.6 MMOL/L (24-32); TOTAL PROTEIN 6.7 G/DL (6.4-8.2); eGFR 16 ML/MIN
[2020-09-26] MEDS: mineral oil/petrolatum ophthal oint EACHEYE SCH (20:41)
[2020-09-26 20:46] LABS: TROPONIN I 1.81 NG/ML (0.0-0.05)
[2020-09-26 21:03] LABS: ALANINE AMINOTRANSFERASE 2880 U/L (12-78); ASPARTATE AMINO TRANSFERASE 6798 U/L (10-37)
--- NOTE | 2020-09-26 21:23 | NUR ---
Critical troponin 1.81 called to Sherine YANEZ, no new orders received.
[2020-09-26] MEDS ORDERED: iohexol 350MG/ML 100ml bottle IV ONE (21:41)
--- NOTE | 2020-09-26 22:26 | NUR ---
Johnathon Alvares RN talked to Miranda YANEZ about CT this evening. RN stated that MD is okay with postponing CT until the am unless patient begins to decline. computer technology trainer aware.
[2020-09-27] VITALS (25 sets, daily range): BP systolic 56–124; BP diastolic 34–82
[2020-09-27] MEDS: bicarb dialysis sol 2K+/3 Ca2+ 5,000 ML HE SCH ×16 (00:05→20:52)
[2020-09-27] MEDS: piperacillin/tazo 3.375gm/50ml 50 ML IV SCH ×3 (00:22→16:17)
--- NOTE | 2020-09-27 01:00 | NUR ---
dressing change to left foot done at this time. minimal drainage noted.
[2020-09-27] MEDS: sodium bicarbonate (8.4%) inj. 150 MEQ in dextrose 5%-water 1,000 ML IV SCH ×2 (01:45→09:25)
--- NOTE | 2020-09-27 02:20 | NUR ---
Sherine YANEZ notified of two BG above 160. hyperglycemic protocol ordered.
[2020-09-27] MEDS ORDERED: glucagon, human recombinant 1mg kit SUBCUT PRN (02:25)
[2020-09-27] MEDS ORDERED: MESSAGE TO PHARMACY PO ONE (02:25)
[2020-09-27] MEDS ORDERED: dextrose ORAL solution 15 GM/59 ML bottle PO PRN ×2 (02:25)
[2020-09-27] MEDS ORDERED: insulin Lispro (HumaLOG) vial - multi-dose SQ SCH (02:25)
[2020-09-27] MEDS: amiodarone/D5 360MG/200ML BAG 200 ML IV SCH ×4 (02:38→20:06)
[2020-09-27] MEDS: mineral oil/petrolatum ophthal oint EACHEYE SCH ×4 (02:43→20:37)
[2020-09-27] MEDS: hydrocortisone sod succ/PF 100mg/2ml inj. IV SCH ×4 (02:43→20:37)
[2020-09-27 03:00] LABS: EOSINOPHILS # (AUTO) 0.4 X10'3 (0-0.9); EOSINOPHILS % (AUTO) 1.5 % (0-6); LYMPHOCYTES # (AUTO) 0.3 X10'3 (1.1-4.8); LYMPHOCYTES % (AUTO) 1.2 % (21-51); MEAN CORPUSCULAR HEMOGLOBIN 31.7 PG (27.0-31.0); RED CELL DISTRIBUTION WIDTH 15.7 % (11.5-14.5)
[2020-09-27] MEDS: VANCOMYCIN LEVEL IV SCH (03:00)
[2020-09-27 03:03] LABS: BASOPHILS # (AUTO) 0.1 X10'3 (0-0.2); BASOPHILS % (AUTO) 0.3 % (0-1); HEMATOCRIT 28.2 % (42.0-52.0); HEMOGLOBIN 9.4 g/dl (14.0-17.9); MEAN CORPUSCULAR HGB CONC 33.4 g/dL (33.0-36.5); MEAN CORPUSCULAR VOLUME 94.9 FL (78-98); MEAN PLATELET VOLUME 8.1 FL (7.4-10.4); MONOCYTES # (AUTO) 1.8 X10'3 (0-0.9); MONOCYTES % (AUTO) 7.1 % (2-12); NEUTROPHILS # (AUTO) 23.5 X10'3 (1.8-7.7); NEUTROPHILS % (AUTO) 89.9 % (42-75); PLATELET COUNT 101 X10'3 (140-440); RED BLOOD COUNT 2.97 X10'6 (4.70-6.10)
[2020-09-27 03:09] LABS: WHITE BLOOD COUNT 26.1 X10'3 (4.5-11.0)
[2020-09-27 03:13] LABS: ALBUMIN 1.7 G/DL (3.4-5.0); ALBUMIN/GLOBULIN RATIO 0.3 (1.1-1.5); ALKALINE PHOSPHATASE 168 IU/L (46-116); ANION GAP 18 (8-16); BILIRUBIN,TOTAL 2.2 MG/DL (0.1-1.0); BLOOD UREA NITROGEN 43 MG/DL (7-18); BUN/CREATININE RATIO 11.9 (5.4-32.0); CALCIUM 7.6 MG/DL (8.5-10.1); CHLORIDE 99 MMOL/L (99-107); CREATININE 3.61 MG/DL (0.60-1.10); GLUCOSE 189 MG/DL (70-104); PHOSPHORUS 5.5 MG/DL (2.3-4.5); POTASSIUM 4.4 MMOL/L (3.5-5.1); SODIUM 140 MMOL/L (135-145); TOTAL PROTEIN 6.7 G/DL (6.4-8.2); VANCOMYCIN,RANDOM 12.9 UG/ML; eGFR 21 ML/MIN
[2020-09-27 03:19] LABS: TROPONIN I 1.52 NG/ML (0.0-0.05)
[2020-09-27] MEDS ORDERED: albumin (Human) 5% 250ml 250 ML IV ONE (03:25)
--- NOTE | 2020-09-27 03:30 | NUR ---
Sherine YANEZ notified of increase in LA, albumin 5% ordered.
[2020-09-27 03:31] LABS: ALANINE AMINOTRANSFERASE 4591 U/L (12-78); ASPARTATE AMINO TRANSFERASE > 7000 U/L (10-37)
[2020-09-27 03:53] LABS: ABG BASE EXCESS -7.4 mmol/L (-2.0-2.0); ABG HCO3 17.9 mmol/L (22.0-26.0); ABG OXYGEN SATURATION 94.3 % (94-97); ABG PCO2 (T) 35.4 mmHg (35.0-48.0); ALLEN'S TEST POSITIVE; FCOHb 0.3 % (0.0-3.9); FMetHb 0.3 % (0.0-1.5); FO2Hb 93.7 % (94-97); PEEP 10 cm H2O; RESPIRATORY RATE 24 b/min; TIDAL VOLUME 500 mL
[2020-09-27] MEDS: albuterol 2.5 MG/3 ML nebule NEB SCH ×6 (03:55→23:08)
[2020-09-27] MEDS: vasopressin inj. 40 UNIT in normal saline 50ml IV soln 38 ML IV SCH (04:27)
[2020-09-27] MEDS: FENTANYL-0.9 % NACL/PF 100 ML IV PRN ×2 (05:40→14:35)
--- NOTE | 2020-09-27 06:13 | NUR ---
Problems reprioritized. Patient report given, questions answered & plan of care reviewed with PATRICIA Bradshaw.
[2020-09-27] MEDS: lactobacillus rhamnosus 10,000 MMU CELLS/CAPSULE PO SCH (07:54)
[2020-09-27] MEDS: pantoprazole 40 MG vial IV SCH (07:54)
[2020-09-27 08:55] LABS: BASOPHILS # (AUTO) 0.1 X10'3 (0-0.2); LYMPHOCYTES # (AUTO) 0.4 X10'3 (1.1-4.8); LYMPHOCYTES % (AUTO) 1.7 % (21-51); MONOCYTES % (AUTO) 8.9 % (2-12); RED CELL DISTRIBUTION WIDTH 15.7 % (11.5-14.5)
[2020-09-27 08:57] LABS: BASOPHILS % (AUTO) 0.2 % (0-1); EOSINOPHILS # (AUTO) 0.2 X10'3 (0-0.9); EOSINOPHILS % (AUTO) 0.9 % (0-6); HEMATOCRIT 26.5 % (42.0-52.0); HEMOGLOBIN 8.9 g/dl (14.0-17.9); MEAN CORPUSCULAR HEMOGLOBIN 31.6 PG (27.0-31.0); MEAN CORPUSCULAR HGB CONC 33.6 g/dL (33.0-36.5); MEAN CORPUSCULAR VOLUME 94.2 FL (78-98); MEAN PLATELET VOLUME 7.6 FL (7.4-10.4); MONOCYTES # (AUTO) 2.1 X10'3 (0-0.9); NEUTROPHILS # (AUTO) 21.1 X10'3 (1.8-7.7); NEUTROPHILS % (AUTO) 88.3 % (42-75); PLATELET COUNT 84 X10'3 (140-440); RED BLOOD COUNT 2.82 X10'6 (4.70-6.10); WHITE BLOOD COUNT 23.9 X10'3 (4.5-11.0)
[2020-09-27 09:12] LABS: PARTIAL THROMBOPLASTIN TIME 54 SECONDS (22-32)
[2020-09-27 09:25] LABS: ALBUMIN 1.9 G/DL (3.4-5.0); ALBUMIN/GLOBULIN RATIO 0.4 (1.1-1.5); ALKALINE PHOSPHATASE 167 IU/L (46-116); ANION GAP 14 (8-16); BILIRUBIN,TOTAL 2.4 MG/DL (0.1-1.0); BLOOD UREA NITROGEN 38 MG/DL (7-18); BUN/CREATININE RATIO 12.4 (5.4-32.0); CALCIUM 7.6 MG/DL (8.5-10.1); CHLORIDE 98 MMOL/L (99-107); CREATININE 3.06 MG/DL (0.60-1.10); GLUCOSE 199 MG/DL (70-104); MAGNESIUM 2.1 MG/DL (1.5-2.4); PHOSPHORUS 4.7 MG/DL (2.3-4.5); POTASSIUM 3.8 MMOL/L (3.5-5.1); SODIUM 137 MMOL/L (135-145); TOTAL CARBON DIOXIDE 24.9 MMOL/L (24-32); TOTAL PROTEIN 6.5 G/DL (6.4-8.2); eGFR 25 ML/MIN
[2020-09-27 09:35] LABS: ALANINE AMINOTRANSFERASE 2649 U/L (12-78); ASPARTATE AMINO TRANSFERASE 4212 U/L (10-37)
[2020-09-27 10:00] LABS: NUCLEATED RED BLOOD CELLS 7 /100WBC (0-0); PLATELET ESTIMATE DECREASED; TOTAL CELLS COUNTED 100
--- NOTE | 2020-09-27 10:45 | NUR ---
BP very labile this shift. started with map above 90 on .3mg/kg and weaned slowly to .1 with map in 70s then suddenly dropped to sbp to 70s. requiring to titrate back up. never have been able to maintain map at 65 seems to be either 80-90 or 40s. will continue to wean as tolerated and continue to try to keep map at 65.
--- NOTE | 2020-09-27 12:46 | NUR ---
TF consult: Pt remains intubated and started on CVVH. Pt s/p f/u CTA abdomen/pelvis with contrast, per report "Evaluation of the GI tract is limited by lack of distension and retained stool. There is no evidence of bowel obstruction. No evidence of pneumatosis." See TF recommendations below. No documented BM since admit, pt would benefit from routine bowel care, will d/w MD. Will continue to follow closely. Recommendations: 1) Continuous Vital High Protein via OGT with goal rate of 95 mL/hr. To provide 2280 mL total volume/day, 2280 kcal, 200 g protein, and 1906 mL water 2) Additional water flush per MD given ESRD on HD and CHF 3) Monitor appropriateness for Jaydon with water flushes for wound healing pending wound care assessment 4) Prealbumin q Saturday/; daily weights 5) Routine bowel care Addendum: 09/27/20 at [address] Amended: Links added.
[2020-09-27] MEDS: dexmedetomidine/D5W 100mL 100 ML IV SCH ×2 (12:47→17:47)
[2020-09-27] MEDS ORDERED: acetaminophen 325mg/10.15ml oral unit dose solution OGT PRN (13:43)
[2020-09-27] MEDS ORDERED: dextrose ORAL solution 15 GM/59 ML bottle OGT PRN ×2 (13:43→13:44)
[2020-09-27 15:29] LABS: EOSINOPHILS # (AUTO) 0.1 X10'3 (0-0.9); MEAN CORPUSCULAR HEMOGLOBIN 31.3 PG (27.0-31.0)
[2020-09-27 15:31] LABS: BASOPHILS % (AUTO) 0.2 % (0-1); EOSINOPHILS % (AUTO) 0.4 % (0-6); HEMATOCRIT 26.5 % (42.0-52.0); HEMOGLOBIN 8.9 g/dl (14.0-17.9); LYMPHOCYTES # (AUTO) 0.3 X10'3 (1.1-4.8); LYMPHOCYTES % (AUTO) 1.7 % (21-51); MEAN CORPUSCULAR HGB CONC 33.4 g/dL (33.0-36.5); MEAN CORPUSCULAR VOLUME 93.5 FL (78-98); MEAN PLATELET VOLUME 7.1 FL (7.4-10.4); MONOCYTES # (AUTO) 1.8 X10'3 (0-0.9); MONOCYTES % (AUTO) 8.7 % (2-12); NEUTROPHILS # (AUTO) 17.9 X10'3 (1.8-7.7); PLATELET COUNT 69 X10'3 (140-440); RED BLOOD COUNT 2.84 X10'6 (4.70-6.10); RED CELL DISTRIBUTION WIDTH 15.6 % (11.5-14.5); WHITE BLOOD COUNT 20.1 X10'3 (4.5-11.0)
[2020-09-27 15:52] LABS: ALBUMIN 1.8 G/DL (3.4-5.0); ALBUMIN/GLOBULIN RATIO 0.4 (1.1-1.5); ALKALINE PHOSPHATASE 163 IU/L (46-116); ANION GAP 6 (8-16); BILIRUBIN,TOTAL 2.4 MG/DL (0.1-1.0); BLOOD UREA NITROGEN 38 MG/DL (7-18); BUN/CREATININE RATIO 13.1 (5.4-32.0); CALCIUM 7.7 MG/DL (8.5-10.1); CHLORIDE 97 MMOL/L (99-107); GLUCOSE 177 MG/DL (70-104); MAGNESIUM 2.1 MG/DL (1.5-2.4); PHOSPHORUS 4.1 MG/DL (2.3-4.5); POTASSIUM 3.4 MMOL/L (3.5-5.1); TOTAL CARBON DIOXIDE 23.7 MMOL/L (24-32); TOTAL PROTEIN 6.3 G/DL (6.4-8.2); eGFR 27 ML/MIN
[2020-09-27 16:09] LABS: PARTIAL THROMBOPLASTIN TIME 98 SECONDS (22-32)
[2020-09-27 16:12] LABS: ASPARTATE AMINO TRANSFERASE 3424 U/L (10-37)
[2020-09-27 16:13] LABS: ALANINE AMINOTRANSFERASE 2363 U/L (12-78)
[2020-09-27 16:14] LABS: SODIUM 127 MMOL/L (135-145)
[2020-09-27] MEDS ORDERED: Potassium Cl inj 40 MEQ in normal saline 250ml IV soln 250 ML IV ONE (16:35)
[2020-09-27] MEDS ORDERED: magnesium 4gm in 100ml NS 100 ML IV PRN (17:10)
--- NOTE | 2020-09-27 18:15 | NUR ---
Problems reprioritized. Patient report given, questions answered & plan of care reviewed with Martine GOMEZ.
[2020-09-27] MEDS: lactobacillus rhamnosus 10,000 MMU CELLS/CAPSULE OGT SCH (20:36)
[2020-09-27 20:42] LABS: EOSINOPHILS % (AUTO) 0.2 % (0-6); LYMPHOCYTES # (AUTO) 0.7 X10'3 (1.1-4.8)
[2020-09-27 20:46] LABS: BASOPHILS # (AUTO) 0.1 X10'3 (0-0.2); BASOPHILS % (AUTO) 0.4 % (0-1); HEMATOCRIT 26.9 % (42.0-52.0); LYMPHOCYTES % (AUTO) 3.5 % (21-51); MEAN CORPUSCULAR HEMOGLOBIN 31.6 PG (27.0-31.0); MEAN CORPUSCULAR HGB CONC 33.4 g/dL (33.0-36.5); MEAN CORPUSCULAR VOLUME 94.8 FL (78-98); MEAN PLATELET VOLUME 7.8 FL (7.4-10.4); MONOCYTES # (AUTO) 1.3 X10'3 (0-0.9); MONOCYTES % (AUTO) 6.9 % (2-12); PLATELET COUNT 59 X10'3 (140-440); RED BLOOD COUNT 2.84 X10'6 (4.70-6.10); RED CELL DISTRIBUTION WIDTH 15.3 % (11.5-14.5); WHITE BLOOD COUNT 19.1 X10'3 (4.5-11.0)
[2020-09-27 20:55] LABS: PARTIAL THROMBOPLASTIN TIME 49 SECONDS (22-32)
[2020-09-27] MEDS: insulin glargine (Lantus) pen - multi-dose SQ SCH (21:30)
[2020-09-27 21:35] LABS: ALBUMIN 1.8 G/DL (3.4-5.0); ALBUMIN/GLOBULIN RATIO 0.4 (1.1-1.5); ANION GAP 12 (8-16); BILIRUBIN,TOTAL 2.5 MG/DL (0.1-1.0); BLOOD UREA NITROGEN 37 MG/DL (7-18); BUN/CREATININE RATIO 14.6 (5.4-32.0); CHLORIDE 101 MMOL/L (99-107); CREATININE 2.53 MG/DL (0.60-1.10); GLUCOSE 192 MG/DL (70-104); MAGNESIUM 2.1 MG/DL (1.5-2.4); PHOSPHORUS 3.6 MG/DL (2.3-4.5); POTASSIUM 4.1 MMOL/L (3.5-5.1); SODIUM 138 MMOL/L (135-145); TOTAL CARBON DIOXIDE 24.9 MMOL/L (24-32); TOTAL PROTEIN 6.3 G/DL (6.4-8.2); eGFR 32 ML/MIN
[2020-09-27 21:57] LABS: ALANINE AMINOTRANSFERASE 2170 U/L (12-78); ASPARTATE AMINO TRANSFERASE 2704 U/L (10-37)
[2020-09-27 22:30] LABS: ALKALINE PHOSPHATASE 173 IU/L (46-116)
[2020-09-27] MEDS: insulin regular, human U-100 3ml vial - multi-dose SQ SCH (22:30)
[2020-09-28] VITALS (24 sets, daily range): BP systolic 82–169; BP diastolic 49–99
[2020-09-28] MEDS: piperacillin/tazo 3.375gm/50ml 50 ML IV SCH ×4 (00:13→23:57)
[2020-09-28] MEDS: dexmedetomidine/D5W 100mL 100 ML IV SCH ×5 (00:17→21:30)
[2020-09-28] MEDS: amiodarone/D5 360MG/200ML BAG 200 ML IV SCH ×4 (00:17→20:22)
--- NOTE | 2020-09-28 01:00 | NUR ---
dressing change to left foot done at this time. minimal purulent drainage noted.
[2020-09-28] MEDS: mineral oil/petrolatum ophthal oint EACHEYE SCH ×4 (02:06→20:23)
[2020-09-28] MEDS: hydrocortisone sod succ/PF 100mg/2ml inj. IV SCH ×4 (02:14→23:57)
[2020-09-28] MEDS: insulin regular, human U-100 3ml vial - multi-dose SQ SCH ×4 (02:36→20:27)
[2020-09-28 02:44] LABS: ABG BASE EXCESS -1.4 mmol/L (-2.0-2.0); ABG HCO3 21.5 mmol/L (22.0-26.0); ABG OXYGEN SATURATION 95.4 % (94-97); ABG PO2 (T) 81.2 mmHg (75.0-100.0); ALLEN'S TEST POSITIVE; FCOHb 0.3 % (0.0-3.9); FMetHb 0.1 % (0.0-1.5); PATIENT TEMPERATURE 36.5; PEEP 8 cm H2O; RESPIRATORY RATE 24 b/min; TIDAL VOLUME 500 mL; TOTAL HEMOGLOBIN 9.3 G/dl (14.0-18.0)
[2020-09-28 02:45] LABS: EOSINOPHILS % (AUTO) 0.1 % (0-6); LYMPHOCYTES # (AUTO) 0.3 X10'3 (1.1-4.8); LYMPHOCYTES % (AUTO) 1.8 % (21-51); MONOCYTES # (AUTO) 1.2 X10'3 (0-0.9); WHITE BLOOD COUNT 17.2 X10'3 (4.5-11.0)
[2020-09-28] MEDS: albuterol 2.5 MG/3 ML nebule NEB SCH ×6 (02:45→23:10)
[2020-09-28] MEDS: VANCOMYCIN LEVEL IV SCH (02:45)
[2020-09-28 02:46] LABS: BASOPHILS % (AUTO) 0.1 % (0-1); HEMATOCRIT 26.9 % (42.0-52.0); HEMOGLOBIN 9.1 g/dl (14.0-17.9); MEAN CORPUSCULAR HEMOGLOBIN 31.8 PG (27.0-31.0); MEAN CORPUSCULAR HGB CONC 33.7 g/dL (33.0-36.5); MEAN CORPUSCULAR VOLUME 94.4 FL (78-98); MEAN PLATELET VOLUME 7.9 FL (7.4-10.4); NEUTROPHILS # (AUTO) 15.6 X10'3 (1.8-7.7); PLATELET COUNT 52 X10'3 (140-440); RED BLOOD COUNT 2.85 X10'6 (4.70-6.10); RED CELL DISTRIBUTION WIDTH 15.2 % (11.5-14.5)
[2020-09-28] MEDS: bicarb dialysis sol 2K+/3 Ca2+ 5,000 ML HE SCH ×4 (02:46→09:07)
[2020-09-28 02:53] LABS: PARTIAL THROMBOPLASTIN TIME 48 SECONDS (22-32)
[2020-09-28 03:06] LABS: ALBUMIN 1.7 G/DL (3.4-5.0); ALBUMIN/GLOBULIN RATIO 0.4 (1.1-1.5); ALKALINE PHOSPHATASE 152 IU/L (46-116); ANION GAP 11 (8-16); BILIRUBIN,TOTAL 2.4 MG/DL (0.1-1.0); BLOOD UREA NITROGEN 37 MG/DL (7-18); BUN/CREATININE RATIO 15.7 (5.4-32.0); CALCIUM 7.8 MG/DL (8.5-10.1); CHLORIDE 101 MMOL/L (99-107); CREATININE 2.36 MG/DL (0.60-1.10); GLUCOSE 206 MG/DL (70-104); MAGNESIUM 2.1 MG/DL (1.5-2.4); PHOSPHORUS 3.3 MG/DL (2.3-4.5); POTASSIUM 3.5 MMOL/L (3.5-5.1); SODIUM 137 MMOL/L (135-145); TOTAL CARBON DIOXIDE 25.1 MMOL/L (24-32); TOTAL PROTEIN 6.2 G/DL (6.4-8.2); VANCOMYCIN,RANDOM 5.5 UG/ML; eGFR 34 ML/MIN
[2020-09-28 03:07] LABS: ALANINE AMINOTRANSFERASE 1958 U/L (12-78); ASPARTATE AMINO TRANSFERASE 1967 U/L (10-37)
[2020-09-28] MEDS: potassium Cl 40MEQ/250ML bag 270 ML IV PRN ×2 (04:10→09:36)
--- NOTE | 2020-09-28 06:31 | NUR ---
Problems reprioritized. Patient report given, questions answered & plan of care reviewed with PATRICIA Mayen.
[2020-09-28] MEDS ORDERED: vancomycin/NS 1 GM ADD-VANTAGE 250 ML IV ONE (07:00)
[2020-09-28] MEDS: lactobacillus rhamnosus 10,000 MMU CELLS/CAPSULE OGT SCH ×2 (07:22→20:23)
[2020-09-28] MEDS: pantoprazole 40 MG vial IV SCH (07:22)
[2020-09-28] MEDS: K and/or MAG REPLACEMENT MC SCH (08:00)
[2020-09-28 08:26] LABS: BASOPHILS % (AUTO) 0.1 % (0-1); EOSINOPHILS % (AUTO) 0.1 % (0-6); HEMATOCRIT 26.6 % (42.0-52.0); MEAN CORPUSCULAR HEMOGLOBIN 31.7 PG (27.0-31.0); RED BLOOD COUNT 2.83 X10'6 (4.70-6.10)
[2020-09-28 08:28] LABS: LYMPHOCYTES # (AUTO) 0.4 X10'3 (1.1-4.8); MEAN CORPUSCULAR HGB CONC 33.8 g/dL (33.0-36.5); MEAN PLATELET VOLUME 7.2 FL (7.4-10.4); MONOCYTES # (AUTO) 1.2 X10'3 (0-0.9); MONOCYTES % (AUTO) 6.8 % (2-12); NEUTROPHILS # (AUTO) 16.4 X10'3 (1.8-7.7); PLATELET COUNT 51 X10'3 (140-440); RED CELL DISTRIBUTION WIDTH 15.3 % (11.5-14.5)
[2020-09-28 08:49] LABS: ALBUMIN 1.6 G/DL (3.4-5.0); ALBUMIN/GLOBULIN RATIO 0.3 (1.1-1.5); ALKALINE PHOSPHATASE 153 IU/L (46-116); ANION GAP 13 (8-16); BILIRUBIN,TOTAL 2.6 MG/DL (0.1-1.0); BLOOD UREA NITROGEN 34 MG/DL (7-18); CALCIUM 7.8 MG/DL (8.5-10.1); CHLORIDE 103 MMOL/L (99-107); GLUCOSE 134 MG/DL (70-104); MAGNESIUM 1.9 MG/DL (1.5-2.4); PHOSPHORUS 2.7 MG/DL (2.3-4.5); POTASSIUM 3.6 MMOL/L (3.5-5.1); SODIUM 140 MMOL/L (135-145); TOTAL CARBON DIOXIDE 24.5 MMOL/L (24-32); TOTAL PROTEIN 6.2 G/DL (6.4-8.2); eGFR 42 ML/MIN
[2020-09-28] MEDS ORDERED: BICARB DIALYSIS 4K/2.5 Ca2+sol 5,000 ML HE SCH (09:16)
[2020-09-28 09:24] LABS: NUCLEATED RED BLOOD CELLS 2 /100WBC (0-0); TOTAL CELLS COUNTED 100
[2020-09-28 09:25] LABS: ANISOCYTOSIS 1+; PLATELET ESTIMATE DECREASED
[2020-09-28] MEDS: Duosol 4K/3 Ca (w/calcium) 5,000 ML HE SCH ×9 (09:25→21:43)
[2020-09-28 09:29] LABS: ALANINE AMINOTRANSFERASE 1784 U/L (12-78); ASPARTATE AMINO TRANSFERASE 1701 U/L (10-37)
--- NOTE | 2020-09-28 10:41 | NUR ---
F/u: Pt still with no BM since admit, d/w multidisciplinary team at critical care rounds. Pt to begin bowel care per MD. Pt tolerating TF currently running at 50 mL/hr working towards goal rate of 95 mL/hr. Per [facility] notes pt with full thickness DM ulcer to left foot, stable with no signs of infection. Addendum: 09/28/20 at [address] Amended: Links added.
[2020-09-28] MEDS ORDERED: magnesium citrate 296ml oral solution PO ONE (11:00)
[2020-09-28 14:42] LABS: BASOPHILS % (AUTO) 0.1 % (0-1); EOSINOPHILS % (AUTO) 0.1 % (0-6); HEMOGLOBIN 9.5 g/dl (14.0-17.9); LYMPHOCYTES # (AUTO) 0.2 X10'3 (1.1-4.8); LYMPHOCYTES % (AUTO) 1.1 % (21-51); MEAN CORPUSCULAR HEMOGLOBIN 31.5 PG (27.0-31.0); MEAN CORPUSCULAR HGB CONC 32.9 g/dL (33.0-36.5); MEAN CORPUSCULAR VOLUME 95.6 FL (78-98); MEAN PLATELET VOLUME 7.5 FL (7.4-10.4); MONOCYTES # (AUTO) 1.2 X10'3 (0-0.9); MONOCYTES % (AUTO) 5.5 % (2-12); NEUTROPHILS % (AUTO) 93.2 % (42-75); PLATELET COUNT 52 X10'3 (140-440); RED BLOOD COUNT 3.03 X10'6 (4.70-6.10); RED CELL DISTRIBUTION WIDTH 15.3 % (11.5-14.5)
[2020-09-28 14:50] LABS: PARTIAL THROMBOPLASTIN TIME 46 SECONDS (22-32)
[2020-09-28 14:57] LABS: ALANINE AMINOTRANSFERASE 1827 U/L (12-78); ALBUMIN 1.8 G/DL (3.4-5.0); ALBUMIN/GLOBULIN RATIO 0.4 (1.1-1.5); ALKALINE PHOSPHATASE 171 IU/L (46-116); ANION GAP 14 (8-16); ASPARTATE AMINO TRANSFERASE 1432 U/L (10-37); BILIRUBIN,TOTAL 2.7 MG/DL (0.1-1.0); BLOOD UREA NITROGEN 36 MG/DL (7-18); BUN/CREATININE RATIO 17.2 (5.4-32.0); CALCIUM 8.4 MG/DL (8.5-10.1); CHLORIDE 103 MMOL/L (99-107); CREATININE 2.09 MG/DL (0.60-1.10); GLUCOSE 163 MG/DL (70-104); MAGNESIUM 2.9 MG/DL (1.5-2.4); PHOSPHORUS 3.1 MG/DL (2.3-4.5); POTASSIUM 3.5 MMOL/L (3.5-5.1); SODIUM 139 MMOL/L (135-145); TOTAL CARBON DIOXIDE 22.1 MMOL/L (24-32); TOTAL PROTEIN 6.9 G/DL (6.4-8.2); eGFR 40 ML/MIN
[2020-09-28 15:10] LABS: WHITE BLOOD COUNT 22.5 X10'3 (4.5-11.0)
[2020-09-28] MEDS: FENTANYL-0.9 % NACL/PF 100 ML IV PRN ×2 (15:21→21:42)
[2020-09-28] MEDS: NORepinephrine inj. 32 MG in normal saline 250ml IV soln 218 ML IV SCH (16:25)
[2020-09-28] MEDS ORDERED: albumin (human) 25% 100 ML IV solution IV ONE (16:45)
--- NOTE | 2020-09-28 18:30 | NUR ---
Patient in room CICU 2008. I have received report from Tiarra GOMEZ and had the opportunity to ask questions and assume patient care.
[2020-09-28] MEDS ORDERED: docusate sod 100mg capsule PO SCH (20:00)
[2020-09-28] MEDS: sennosides/docusate sodium tablet PO SCH (20:00)
[2020-09-28] MEDS: insulin glargine (Lantus) pen - multi-dose SQ SCH (20:29)
[2020-09-28 20:30] LABS: EOSINOPHILS % (AUTO) 0 % (0-6); HEMOGLOBIN 9.3 g/dl (14.0-17.9); LYMPHOCYTES # (AUTO) 0.3 X10'3 (1.1-4.8)
[2020-09-28 20:31] LABS: BASOPHILS % (AUTO) 0.1 % (0-1); HEMATOCRIT 28.3 % (42.0-52.0); LYMPHOCYTES % (AUTO) 1.7 % (21-51); MEAN CORPUSCULAR HEMOGLOBIN 31.3 PG (27.0-31.0); MEAN CORPUSCULAR HGB CONC 32.9 g/dL (33.0-36.5); MEAN CORPUSCULAR VOLUME 95.2 FL (78-98); MONOCYTES # (AUTO) 1.5 X10'3 (0-0.9); MONOCYTES % (AUTO) 7.9 % (2-12); NEUTROPHILS # (AUTO) 16.8 X10'3 (1.8-7.7); NEUTROPHILS % (AUTO) 90.3 % (42-75); RED BLOOD COUNT 2.97 X10'6 (4.70-6.10); RED CELL DISTRIBUTION WIDTH 15.7 % (11.5-14.5); WHITE BLOOD COUNT 18.6 X10'3 (4.5-11.0)
[2020-09-28 20:50] LABS: ALBUMIN/GLOBULIN RATIO 0.4 (1.1-1.5); ALKALINE PHOSPHATASE 166 IU/L (46-116); ANION GAP 10 (8-16); BILIRUBIN,TOTAL 2.6 MG/DL (0.1-1.0); BLOOD UREA NITROGEN 35 MG/DL (7-18); BUN/CREATININE RATIO 18.4 (5.4-32.0); CALCIUM 8.2 MG/DL (8.5-10.1); CHLORIDE 105 MMOL/L (99-107); GLUCOSE 132 MG/DL (70-104); MAGNESIUM 2.5 MG/DL (1.5-2.4); PHOSPHORUS 2.4 MG/DL (2.3-4.5); POTASSIUM 3.7 MMOL/L (3.5-5.1); SODIUM 140 MMOL/L (135-145); TOTAL CARBON DIOXIDE 25.5 MMOL/L (24-32); TOTAL PROTEIN 6.8 G/DL (6.4-8.2); eGFR 44 ML/MIN
[2020-09-28 20:51] LABS: ALANINE AMINOTRANSFERASE 1623 U/L (12-78); ASPARTATE AMINO TRANSFERASE 1167 U/L (10-37)
[2020-09-28 20:52] LABS: PLATELET COUNT 48 X10'3 (140-440)
[2020-09-28] MEDS ORDERED: polyethylene glycol 3350 17gm powd pack PO SCH (21:00)
--- NOTE | 2020-09-28 22:00 | NUR ---
Critical PLTS called to Dr Motley. No new orders at this time.
--- NOTE | 2020-09-28 22:16 | NUR ---
Patient has had multiple large liquid bowel movements. Order obtained for fecal containment system.
[2020-09-29] VITALS (26 sets, daily range): BP systolic 99–145; BP diastolic 61–87
[2020-09-29] MEDS: amiodarone/D5 360MG/200ML BAG 200 ML IV SCH ×3 (00:57→14:10)
[2020-09-29] MEDS: Duosol 4K/3 Ca (w/calcium) 5,000 ML HE SCH ×14 (01:10→22:11)
[2020-09-29] MEDS: mineral oil/petrolatum ophthal oint EACHEYE SCH ×4 (02:10→21:52)
[2020-09-29] MEDS: dexmedetomidine/D5W 100mL 100 ML IV SCH ×5 (02:11→18:39)
[2020-09-29] MEDS: insulin regular, human U-100 3ml vial - multi-dose SQ SCH ×4 (02:12→20:02)
[2020-09-29] MEDS: VANCOMYCIN LEVEL IV SCH (03:00)
[2020-09-29 03:14] LABS: ABG BASE EXCESS -1.9 mmol/L (-2.0-2.0); ABG HCO3 21.3 mmol/L (22.0-26.0); ABG OXYGEN SATURATION 95.1 % (94-97); ABG PCO2 (T) 29.8 mmHg (35.0-48.0); ABG PO2 (T) 75.5 mmHg (75.0-100.0); ALLEN'S TEST POSITIVE; FCOHb 0.3 % (0.0-3.9); FO2Hb 94.8 % (94-97); PATIENT TEMPERATURE 36.3; PEEP 8 cm H2O; RESPIRATORY RATE 22 b/min; TIDAL VOLUME 500 mL; TOTAL HEMOGLOBIN 10.1 G/dl (14.0-18.0)
[2020-09-29 03:18] LABS: BASOPHILS % (AUTO) 0.1 % (0-1); EOSINOPHILS % (AUTO) 0 % (0-6); HEMATOCRIT 28.8 % (42.0-52.0); HEMOGLOBIN 9.5 g/dl (14.0-17.9); MEAN CORPUSCULAR HEMOGLOBIN 31.4 PG (27.0-31.0); MEAN CORPUSCULAR HGB CONC 32.9 g/dL (33.0-36.5)
[2020-09-29 03:20] LABS: LYMPHOCYTES # (AUTO) 0.3 X10'3 (1.1-4.8); LYMPHOCYTES % (AUTO) 2.1 % (21-51); MEAN CORPUSCULAR VOLUME 95.4 FL (78-98); MEAN PLATELET VOLUME 8.3 FL (7.4-10.4); MONOCYTES # (AUTO) 1.3 X10'3 (0-0.9); MONOCYTES % (AUTO) 7.7 % (2-12); NEUTROPHILS # (AUTO) 14.7 X10'3 (1.8-7.7); NEUTROPHILS % (AUTO) 90.1 % (42-75); RED BLOOD COUNT 3.02 X10'6 (4.70-6.10); RED CELL DISTRIBUTION WIDTH 15.6 % (11.5-14.5); WHITE BLOOD COUNT 16.3 X10'3 (4.5-11.0)
[2020-09-29 03:37] LABS: ALBUMIN 1.9 G/DL (3.4-5.0); ALBUMIN/GLOBULIN RATIO 0.4 (1.1-1.5); ALKALINE PHOSPHATASE 158 IU/L (46-116); ANION GAP 10 (8-16); ASPARTATE AMINO TRANSFERASE 939 U/L (10-37); BILIRUBIN,TOTAL 2.6 MG/DL (0.1-1.0); BLOOD UREA NITROGEN 37 MG/DL (7-18); BUN/CREATININE RATIO 20.4 (5.4-32.0); CALCIUM 8.2 MG/DL (8.5-10.1); CHLORIDE 104 MMOL/L (99-107); CREATININE 1.81 MG/DL (0.60-1.10); GLUCOSE 160 MG/DL (70-104); MAGNESIUM 2.4 MG/DL (1.5-2.4); PHOSPHORUS 2.2 MG/DL (2.3-4.5); POTASSIUM 3.8 MMOL/L (3.5-5.1); PREALBUMIN 6.3 MG/DL (19-36); SODIUM 140 MMOL/L (135-145); TOTAL CARBON DIOXIDE 25.7 MMOL/L (24-32); TOTAL PROTEIN 6.8 G/DL (6.4-8.2); VANCOMYCIN,RANDOM 9.1 UG/ML; eGFR 47 ML/MIN
[2020-09-29 03:40] LABS: ALANINE AMINOTRANSFERASE 1511 U/L (12-78)
--- NOTE | 2020-09-29 04:00 | NUR ---
CVVH went down. Called and notified oncall dialysis nurse Harpreet, will be in to change filter and restart machine.
[2020-09-29 04:01] LABS: PLATELET COUNT 35 X10'3 (140-440)
[2020-09-29] MEDS: FENTANYL-0.9 % NACL/PF 100 ML IV PRN ×3 (04:17→17:50)
[2020-09-29] MEDS: potassium Cl 40MEQ/250ML bag 270 ML IV PRN (04:20)
[2020-09-29 04:43] LABS: ANISOCYTOSIS 1+; NUCLEATED RED BLOOD CELLS 4 /100WBC (0-0); PLATELET ESTIMATE DECREASED; TOTAL CELLS COUNTED 100
--- NOTE | 2020-09-29 04:45 | NUR ---
Critical PLT discussed with Dr Griffith. No new orders at this time.
[2020-09-29] MEDS: albuterol 2.5 MG/3 ML nebule NEB SCH ×6 (05:00→23:36)
--- NOTE | 2020-09-29 05:30 | NUR ---
Patients rectal containment system is leaking. Pungent odor noted.
--- NOTE | 2020-09-29 06:22 | NUR ---
Problems reprioritized. Patient report given, questions answered & plan of care reviewed with Britta GOMEZ.
[2020-09-29] MEDS: lactobacillus rhamnosus 10,000 MMU CELLS/CAPSULE OGT SCH ×2 (07:35→21:54)
[2020-09-29] MEDS: pantoprazole 40 MG vial IV SCH (07:35)
[2020-09-29] MEDS: hydrocortisone sod succ/PF 100mg/2ml inj. IV SCH ×2 (07:36→21:53)
[2020-09-29] MEDS: piperacillin/tazo 3.375gm/50ml 50 ML IV SCH ×2 (07:36→15:29)
[2020-09-29] MEDS ORDERED: vancomycin/NS 1 GM ADD-VANTAGE 250 ML IV ONE (08:00)
[2020-09-29] MEDS: sennosides/docusate sodium tablet PO SCH ×2 (08:00→20:00)
[2020-09-29] MEDS: K and/or MAG REPLACEMENT MC SCH (08:19)
[2020-09-29 09:04] LABS: BASOPHILS % (AUTO) 0 % (0-1); EOSINOPHILS % (AUTO) 0 % (0-6); HEMATOCRIT 26.7 % (42.0-52.0); HEMOGLOBIN 8.8 g/dl (14.0-17.9); LYMPHOCYTES # (AUTO) 0.3 X10'3 (1.1-4.8); LYMPHOCYTES % (AUTO) 2.1 % (21-51); MEAN CORPUSCULAR HEMOGLOBIN 31.9 PG (27.0-31.0); MEAN CORPUSCULAR HGB CONC 33.2 g/dL (33.0-36.5); MEAN PLATELET VOLUME 9.2 FL (7.4-10.4); MONOCYTES # (AUTO) 1.3 X10'3 (0-0.9); MONOCYTES % (AUTO) 9.6 % (2-12); NEUTROPHILS # (AUTO) 11.7 X10'3 (1.8-7.7); NEUTROPHILS % (AUTO) 88.3 % (42-75); RED BLOOD COUNT 2.78 X10'6 (4.70-6.10); WHITE BLOOD COUNT 13.3 X10'3 (4.5-11.0)
[2020-09-29 09:11] LABS: PLATELET COUNT 34 X10'3 (140-440)
[2020-09-29 09:14] LABS: PARTIAL THROMBOPLASTIN TIME 43 SECONDS (22-32)
[2020-09-29 09:29] LABS: ALBUMIN 1.8 G/DL (3.4-5.0); ALBUMIN/GLOBULIN RATIO 0.4 (1.1-1.5); ALKALINE PHOSPHATASE 157 IU/L (46-116); ANION GAP 9 (8-16); ASPARTATE AMINO TRANSFERASE 732 U/L (10-37); BILIRUBIN,TOTAL 2.3 MG/DL (0.1-1.0); BLOOD UREA NITROGEN 44 MG/DL (7-18); BUN/CREATININE RATIO 22.7 (5.4-32.0); CALCIUM 7.8 MG/DL (8.5-10.1); CHLORIDE 103 MMOL/L (99-107); CREATININE 1.94 MG/DL (0.60-1.10); GLUCOSE 255 MG/DL (70-104); MAGNESIUM 2.3 MG/DL (1.5-2.4); PHOSPHORUS 1.8 MG/DL (2.3-4.5); POTASSIUM 4.1 MMOL/L (3.5-5.1); SODIUM 137 MMOL/L (135-145); TOTAL CARBON DIOXIDE 24.8 MMOL/L (24-32); TOTAL PROTEIN 6.5 G/DL (6.4-8.2); eGFR 43 ML/MIN
[2020-09-29 09:32] LABS: ALANINE AMINOTRANSFERASE 1326 U/L (12-78)
[2020-09-29] MEDS ORDERED: MIDAZolam 5mg/ml 2ml vial IV ONE (10:30)
[2020-09-29] MEDS: sodium phosphate inj. 30 MMOL in dextrose 5%-water 250 ML IV PRN (12:06)
--- NOTE | 2020-09-29 12:23 | NUR ---
Reassessment: Pt remains intubated and tolerating TF at goal rate with GRV WNL. LBM 09/29 now with a rectal tube in place per bedside RN d/t pt with diarrhea after receiving one time dose of Mag-citrate 09/28 following no BM x 5 days. Per I&O pt with 500 mL stool output 09/28, no documentation of stool output for today. Pt continues on CVVH though may transition to intermittent HD per drug department worker note. TF recommendations will need to be adjusted if pt changes from CVVH to HD. Will continue to follow closely. Recommendations: 1) Continuous Vital High Protein via OGT with goal rate of 95 mL/hr. To provide 2280 mL total volume/day, 2280 kcal, 200 g protein, and 1906 mL water 2) Additional water flush per MD given ESRD on HD and CHF 3) Monitor appropriateness for Jaydon with water flushes for wound healing pending wound care assessment 4) Prealbumin q Saturday/; daily weights 5) Routine bowel care 6) IF pt changes to intermittent HD, TF change to continuous Vital AF with goal rate of 80 mL/hr Addendum: 09/29/20 at [address] Amended: Links added.
[2020-09-29 15:04] LABS: BASOPHILS % (AUTO) 0.2 % (0-1); EOSINOPHILS % (AUTO) 0 % (0-6); HEMATOCRIT 27.2 % (42.0-52.0); LYMPHOCYTES # (AUTO) 0.7 X10'3 (1.1-4.8); MONOCYTES # (AUTO) 1.1 X10'3 (0-0.9)
[2020-09-29 15:05] LABS: LYMPHOCYTES % (AUTO) 5.3 % (21-51); MEAN CORPUSCULAR HEMOGLOBIN 31.7 PG (27.0-31.0); MEAN CORPUSCULAR VOLUME 96.1 FL (78-98); MEAN PLATELET VOLUME 9.8 FL (7.4-10.4); NEUTROPHILS # (AUTO) 12.2 X10'3 (1.8-7.7); NEUTROPHILS % (AUTO) 86.5 % (42-75); RED BLOOD COUNT 2.83 X10'6 (4.70-6.10); RED CELL DISTRIBUTION WIDTH 16.1 % (11.5-14.5); WHITE BLOOD COUNT 14.1 X10'3 (4.5-11.0)
[2020-09-29 15:17] LABS: PARTIAL THROMBOPLASTIN TIME 43 SECONDS (22-32)
[2020-09-29 15:24] LABS: PLATELET COUNT 29 X10'3 (140-440)
[2020-09-29 15:28] LABS: ANISOCYTOSIS 1+; NUCLEATED RED BLOOD CELLS 6 /100WBC (0-0); PLATELET ESTIMATE DECREASED; TOTAL CELLS COUNTED 100
[2020-09-29 15:29] LABS: BURR CELLS FEW
[2020-09-29 15:31] LABS: ALANINE AMINOTRANSFERASE 1239 U/L (12-78); ALBUMIN 1.8 G/DL (3.4-5.0); ALBUMIN/GLOBULIN RATIO 0.4 (1.1-1.5); ALKALINE PHOSPHATASE 163 IU/L (46-116); ANION GAP 11 (8-16); ASPARTATE AMINO TRANSFERASE 629 U/L (10-37); BILIRUBIN,TOTAL 2.4 MG/DL (0.1-1.0); BLOOD UREA NITROGEN 45 MG/DL (7-18); BUN/CREATININE RATIO 25.3 (5.4-32.0); CALCIUM 7.9 MG/DL (8.5-10.1); CHLORIDE 103 MMOL/L (99-107); CREATININE 1.78 MG/DL (0.60-1.10); GLUCOSE 261 MG/DL (70-104); MAGNESIUM 2.2 MG/DL (1.5-2.4); PHOSPHORUS 4.4 MG/DL (2.3-4.5); SODIUM 139 MMOL/L (135-145); TOTAL CARBON DIOXIDE 24.8 MMOL/L (24-32); TOTAL PROTEIN 6.6 G/DL (6.4-8.2); eGFR 48 ML/MIN
--- NOTE | 2020-09-29 18:19 | NUR ---
Problems reprioritized. Patient report given, questions answered & plan of care reviewed with Rodo.
[2020-09-29] MEDS: insulin glargine (Lantus) pen - multi-dose SQ SCH (20:03)
[2020-09-29 21:51] LABS: PARTIAL THROMBOPLASTIN TIME 39 SECONDS (22-32)
[2020-09-29 21:52] LABS: ALBUMIN 1.8 G/DL (3.4-5.0); ALBUMIN/GLOBULIN RATIO 0.4 (1.1-1.5); ALKALINE PHOSPHATASE 162 IU/L (46-116); ANION GAP 9 (8-16); ASPARTATE AMINO TRANSFERASE 543 U/L (10-37); BILIRUBIN,TOTAL 2.6 MG/DL (0.1-1.0); BLOOD UREA NITROGEN 42 MG/DL (7-18); BUN/CREATININE RATIO 25.9 (5.4-32.0); CHLORIDE 104 MMOL/L (99-107); CREATININE 1.62 MG/DL (0.60-1.10); GLUCOSE 159 MG/DL (70-104); MAGNESIUM 1.9 MG/DL (1.5-2.4); PHOSPHORUS 2.8 MG/DL (2.3-4.5); SODIUM 139 MMOL/L (135-145); TOTAL CARBON DIOXIDE 26.4 MMOL/L (24-32); TOTAL PROTEIN 6.6 G/DL (6.4-8.2); eGFR 53 ML/MIN
[2020-09-29 21:57] LABS: ALANINE AMINOTRANSFERASE 1120 U/L (12-78); BASOPHILS % (AUTO) 0.1 % (0-1); EOSINOPHILS % (AUTO) 0 % (0-6); MEAN CORPUSCULAR HGB CONC 32.9 g/dL (33.0-36.5); MEAN CORPUSCULAR VOLUME 96.2 FL (78-98); PLATELET COUNT 79 X10'3 (140-440)
[2020-09-29 21:58] LABS: HEMATOCRIT 26.5 % (42.0-52.0); HEMOGLOBIN 8.7 g/dl (14.0-17.9); LYMPHOCYTES # (AUTO) 0.5 X10'3 (1.1-4.8); LYMPHOCYTES % (AUTO) 3.1 % (21-51); MEAN CORPUSCULAR HEMOGLOBIN 31.6 PG (27.0-31.0); MONOCYTES # (AUTO) 1.3 X10'3 (0-0.9); NEUTROPHILS # (AUTO) 13.1 X10'3 (1.8-7.7); NEUTROPHILS % (AUTO) 87.8 % (42-75); RED BLOOD COUNT 2.75 X10'6 (4.70-6.10); RED CELL DISTRIBUTION WIDTH 15.9 % (11.5-14.5); WHITE BLOOD COUNT 14.9 X10'3 (4.5-11.0)
[2020-09-30] VITALS (23 sets, daily range): BP systolic 95–140; BP diastolic 57–83
[2020-09-30] MEDS: piperacillin/tazo 3.375gm/50ml 50 ML IV SCH ×2 (00:16→07:17)
[2020-09-30] MEDS: FENTANYL-0.9 % NACL/PF 100 ML IV PRN ×4 (01:34→19:24)
[2020-09-30] MEDS: amiodarone/D5 360MG/200ML BAG 200 ML IV SCH ×5 (02:08→20:23)
[2020-09-30] MEDS: dexmedetomidine/D5W 100mL 100 ML IV SCH ×5 (02:18→23:58)
[2020-09-30] MEDS: mineral oil/petrolatum ophthal oint EACHEYE SCH ×4 (02:48→20:04)
[2020-09-30] MEDS: insulin regular, human U-100 3ml vial - multi-dose SQ SCH ×4 (02:51→20:00)
[2020-09-30 03:15] LABS: EOSINOPHILS % (AUTO) 0 % (0-6); HEMOGLOBIN 8.8 g/dl (14.0-17.9); MEAN CORPUSCULAR VOLUME 95.7 FL (78-98); MONOCYTES # (AUTO) 1.4 X10'3 (0-0.9)
[2020-09-30 03:17] LABS: BASOPHILS % (AUTO) 0.2 % (0-1); HEMATOCRIT 26.5 % (42.0-52.0); LYMPHOCYTES # (AUTO) 0.6 X10'3 (1.1-4.8); LYMPHOCYTES % (AUTO) 4.3 % (21-51); MEAN CORPUSCULAR HEMOGLOBIN 31.8 PG (27.0-31.0); MEAN CORPUSCULAR HGB CONC 33.2 g/dL (33.0-36.5); MEAN PLATELET VOLUME 10.3 FL (7.4-10.4); MONOCYTES % (AUTO) 9.5 % (2-12); NEUTROPHILS # (AUTO) 12.3 X10'3 (1.8-7.7); PLATELET COUNT 70 X10'3 (140-440); RED BLOOD COUNT 2.77 X10'6 (4.70-6.10); RED CELL DISTRIBUTION WIDTH 15.6 % (11.5-14.5); WHITE BLOOD COUNT 14.3 X10'3 (4.5-11.0)
[2020-09-30 03:23] LABS: ABG BASE EXCESS -2.2 mmol/L (-2.0-2.0); ABG HCO3 21.3 mmol/L (22.0-26.0); ABG OXYGEN SATURATION 94.3 % (94-97); ABG PCO2 (T) 30.4 mmHg (35.0-48.0); ABG PO2 (T) 67.9 mmHg (75.0-100.0); ALLEN'S TEST POSITIVE; FCOHb 0.2 % (0.0-3.9); FMetHb 0.3 % (0.0-1.5); FO2Hb 93.8 % (94-97); PEEP 9 cm H2O; RESPIRATORY RATE 20 b/min; TIDAL VOLUME 500 mL; TOTAL HEMOGLOBIN 9.2 G/dl (14.0-18.0)
[2020-09-30] MEDS: albuterol 2.5 MG/3 ML nebule NEB SCH ×6 (03:24→23:43)
[2020-09-30 03:39] LABS: ALBUMIN 1.8 G/DL (3.4-5.0); ALBUMIN/GLOBULIN RATIO 0.4 (1.1-1.5); ALKALINE PHOSPHATASE 170 IU/L (46-116); ANION GAP 10 (8-16); ASPARTATE AMINO TRANSFERASE 512 U/L (10-37); BILIRUBIN,TOTAL 2.6 MG/DL (0.1-1.0); BLOOD UREA NITROGEN 42 MG/DL (7-18); BUN/CREATININE RATIO 27.1 (5.4-32.0); CALCIUM 7.7 MG/DL (8.5-10.1); CHLORIDE 103 MMOL/L (99-107); CREATININE 1.55 MG/DL (0.60-1.10); GLUCOSE 133 MG/DL (70-104); MAGNESIUM 1.9 MG/DL (1.5-2.4); PHOSPHORUS 2.4 MG/DL (2.3-4.5); POTASSIUM 4.1 MMOL/L (3.5-5.1); SODIUM 139 MMOL/L (135-145); TOTAL CARBON DIOXIDE 26.4 MMOL/L (24-32); TOTAL PROTEIN 6.8 G/DL (6.4-8.2); VANCOMYCIN,RANDOM 11.1 UG/ML; eGFR 56 ML/MIN
[2020-09-30 03:41] LABS: ALANINE AMINOTRANSFERASE 1069 U/L (12-78)
[2020-09-30] MEDS: Duosol 4K/3 Ca (w/calcium) 5,000 ML HE SCH ×15 (03:52→20:47)
--- NOTE | 2020-09-30 06:30 | NUR ---
Patient in room CICU 2007. I have received report from Rodo GOMEZ and had the opportunity to ask questions and assume patient care.
[2020-09-30] MEDS: lactobacillus rhamnosus 10,000 MMU CELLS/CAPSULE OGT SCH ×2 (07:17→20:04)
[2020-09-30] MEDS: pantoprazole 40 MG vial IV SCH (07:17)
[2020-09-30] MEDS: hydrocortisone sod succ/PF 100mg/2ml inj. IV SCH ×2 (07:17→20:04)
[2020-09-30] MEDS: sennosides/docusate sodium tablet PO SCH ×2 (08:00→20:00)
[2020-09-30] MEDS: K and/or MAG REPLACEMENT MC SCH (08:00)
[2020-09-30 08:07] LABS: EOSINOPHILS % (AUTO) 0.1 % (0-6); HEMATOCRIT 26.6 % (42.0-52.0); HEMOGLOBIN 8.8 g/dl (14.0-17.9); MONOCYTES # (AUTO) 1.5 X10'3 (0-0.9); NEUTROPHILS # (AUTO) 13.7 X10'3 (1.8-7.7); RED CELL DISTRIBUTION WIDTH 15.8 % (11.5-14.5)
[2020-09-30 08:09] LABS: BASOPHILS % (AUTO) 0.1 % (0-1); LYMPHOCYTES # (AUTO) 0.9 X10'3 (1.1-4.8); LYMPHOCYTES % (AUTO) 5.6 % (21-51); MEAN CORPUSCULAR HEMOGLOBIN 31.5 PG (27.0-31.0); MEAN CORPUSCULAR VOLUME 95.4 FL (78-98); MONOCYTES % (AUTO) 9.3 % (2-12); NEUTROPHILS % (AUTO) 84.9 % (42-75); PLATELET COUNT 69 X10'3 (140-440); RED BLOOD COUNT 2.79 X10'6 (4.70-6.10); WHITE BLOOD COUNT 16.2 X10'3 (4.5-11.0)
[2020-09-30] MEDS ORDERED: albumin (human) 25% 100 ML IV solution IV ONE (08:15)
[2020-09-30 08:21] LABS: NUCLEATED RED BLOOD CELLS 6 /100WBC (0-0); PLATELET ESTIMATE DECREASED; POLYCHROMASIA 1+; TOTAL CELLS COUNTED 100
[2020-09-30 08:22] LABS: POIKILOCYTOSIS FEW; TARGET CELLS FEW
[2020-09-30 08:26] LABS: ALANINE AMINOTRANSFERASE 972 U/L (12-78); ALBUMIN 1.8 G/DL (3.4-5.0); ALBUMIN/GLOBULIN RATIO 0.4 (1.1-1.5); ALKALINE PHOSPHATASE 173 IU/L (46-116); ANION GAP 9 (8-16); ASPARTATE AMINO TRANSFERASE 463 U/L (10-37); BILIRUBIN,TOTAL 2.6 MG/DL (0.1-1.0); BLOOD UREA NITROGEN 44 MG/DL (7-18); BUN/CREATININE RATIO 28.6 (5.4-32.0); CALCIUM 8.1 MG/DL (8.5-10.1); CHLORIDE 103 MMOL/L (99-107); CREATININE 1.54 MG/DL (0.60-1.10); GLUCOSE 148 MG/DL (70-104); POTASSIUM 4.3 MMOL/L (3.5-5.1); SODIUM 139 MMOL/L (135-145); TOTAL CARBON DIOXIDE 26.8 MMOL/L (24-32); TOTAL PROTEIN 6.8 G/DL (6.4-8.2); eGFR 56 ML/MIN
--- NOTE | 2020-09-30 10:15 | NUR ---
MD notified of patient's most recent lab values and abnormal lab values. No new orders received.
[2020-09-30] MEDS: sodium phosphate inj. 30 MMOL in dextrose 5%-water 250 ML IV PRN (10:52)
[2020-09-30] MEDS ORDERED: FONDAPARINUX (ARIXTRA) 7.5 MG/0.6 ML SYRINGE SQ SCH ×2 (10:55→11:01)
[2020-09-30] MEDS ORDERED: fondaparinux 2.5 MG/0.5 ML syringe SUBCUT SCH (11:02)
[2020-09-30 11:12] LABS: PARTIAL THROMBOPLASTIN TIME 41 SECONDS (22-32)
[2020-09-30 11:23] LABS: OCCULT BLOOD STOOL POSITIVE (Neg)
--- NOTE | 2020-09-30 12:48 | NUR ---
MD aware of patient's positive stool occult blood.
[2020-09-30] MEDS ORDERED: MEROPENEM 1GM/NS 50ML IVPB 50 ML IV SCH ×2 (13:14→13:26)
[2020-09-30] MEDS: MEROPENEM 1GM/NS 50ML IVPB 50 ML IV SCH ×2 (13:34→20:20)
--- NOTE | 2020-09-30 14:49 | NUR ---
Dr. Gracia callled. Orders to hold tubefeed after midnight. Plan to perform endoscopy tomorrow 10/01/2020
[2020-09-30 14:52] LABS: MEAN CORPUSCULAR HGB CONC 33.3 g/dL (33.0-36.5); MONOCYTES # (AUTO) 1.2 X10'3 (0-0.9)
[2020-09-30 14:53] LABS: BASOPHILS % (AUTO) 0.3 % (0-1); EOSINOPHILS % (AUTO) 0 % (0-6); HEMOGLOBIN 8.3 g/dl (14.0-17.9); LYMPHOCYTES # (AUTO) 0.5 X10'3 (1.1-4.8); LYMPHOCYTES % (AUTO) 3.2 % (21-51); MONOCYTES % (AUTO) 8.6 % (2-12); NEUTROPHILS # (AUTO) 12.6 X10'3 (1.8-7.7); NEUTROPHILS % (AUTO) 87.9 % (42-75); PLATELET COUNT 56 X10'3 (140-440); RED CELL DISTRIBUTION WIDTH 15.6 % (11.5-14.5); WHITE BLOOD COUNT 14.3 X10'3 (4.5-11.0)
[2020-09-30 15:05] LABS: ALANINE AMINOTRANSFERASE 824 U/L (12-78); ALBUMIN 2.2 G/DL (3.4-5.0); ALBUMIN/GLOBULIN RATIO 0.5 (1.1-1.5); ALKALINE PHOSPHATASE 165 IU/L (46-116); ANION GAP 8 (8-16); ASPARTATE AMINO TRANSFERASE 386 U/L (10-37); BILIRUBIN,TOTAL 2.9 MG/DL (0.1-1.0); BLOOD UREA NITROGEN 40 MG/DL (7-18); BUN/CREATININE RATIO 26.5 (5.4-32.0); CHLORIDE 102 MMOL/L (99-107); CREATININE 1.51 MG/DL (0.60-1.10); GLUCOSE 152 MG/DL (70-104); MAGNESIUM 1.8 MG/DL (1.5-2.4); PHOSPHORUS 2.4 MG/DL (2.3-4.5); POTASSIUM 4.4 MMOL/L (3.5-5.1); SODIUM 138 MMOL/L (135-145); TOTAL CARBON DIOXIDE 27.8 MMOL/L (24-32); TOTAL PROTEIN 6.6 G/DL (6.4-8.2); eGFR 58 ML/MIN
--- NOTE | 2020-09-30 16:45 | NUR ---
patient's rectal tube leaking reseated rectal tube. will continue to monitoring.
[2020-09-30 19:49] LABS: EOSINOPHILS % (AUTO) 0 % (0-6); MEAN CORPUSCULAR HEMOGLOBIN 32.4 PG (27.0-31.0); RED BLOOD COUNT 2.55 X10'6 (4.70-6.10)
[2020-09-30 19:51] LABS: BASOPHILS % (AUTO) 0.2 % (0-1); HEMATOCRIT 24.5 % (42.0-52.0); HEMOGLOBIN 8.3 g/dl (14.0-17.9); LYMPHOCYTES # (AUTO) 0.4 X10'3 (1.1-4.8); MEAN CORPUSCULAR HGB CONC 33.7 g/dL (33.0-36.5); MEAN CORPUSCULAR VOLUME 95.9 FL (78-98); MEAN PLATELET VOLUME 10.5 FL (7.4-10.4); MONOCYTES # (AUTO) 1.2 X10'3 (0-0.9); MONOCYTES % (AUTO) 8.3 % (2-12); NEUTROPHILS # (AUTO) 12.8 X10'3 (1.8-7.7); NEUTROPHILS % (AUTO) 88.5 % (42-75); WHITE BLOOD COUNT 14.4 X10'3 (4.5-11.0)
[2020-09-30 20:17] LABS: ALANINE AMINOTRANSFERASE 777 U/L (12-78); ALBUMIN 2.1 G/DL (3.4-5.0); ALBUMIN/GLOBULIN RATIO 0.5 (1.1-1.5); ALKALINE PHOSPHATASE 185 IU/L (46-116); ANION GAP 9 (8-16); ASPARTATE AMINO TRANSFERASE 349 U/L (10-37); BLOOD UREA NITROGEN 42 MG/DL (7-18); BUN/CREATININE RATIO 26.9 (5.4-32.0); CHLORIDE 103 MMOL/L (99-107); CREATININE 1.56 MG/DL (0.60-1.10); GLUCOSE 178 MG/DL (70-104); MAGNESIUM 1.8 MG/DL (1.5-2.4); PHOSPHORUS 2.5 MG/DL (2.3-4.5); SODIUM 139 MMOL/L (135-145); TOTAL CARBON DIOXIDE 27.4 MMOL/L (24-32); TOTAL PROTEIN 6.5 G/DL (6.4-8.2); eGFR 55 ML/MIN
--- NOTE | 2020-09-30 20:35 | NUR ---
Pt had a platlet count of 46. Dr. Duong notified.
[2020-09-30 20:37] LABS: PLATELET COUNT 49 X10'3 (140-440)
[2020-09-30] MEDS: insulin glargine (Lantus) pen - multi-dose SQ SCH (21:00)
--- NOTE | 2020-09-30 22:10 | NUR ---
CVVH machine went down, siting high effluent chamber pressure, managed to return the blood to patient. A clot is visible below the filter.
[2020-10-01] VITALS (26 sets, daily range): BP systolic 91–132; BP diastolic 49–81
[2020-10-01] MEDS: FENTANYL-0.9 % NACL/PF 100 ML IV PRN ×5 (01:45→22:50)
[2020-10-01] MEDS: mineral oil/petrolatum ophthal oint EACHEYE SCH ×4 (02:00→20:25)
[2020-10-01] MEDS: albuterol 2.5 MG/3 ML nebule NEB SCH ×6 (02:47→23:02)
[2020-10-01 02:55] LABS: EOSINOPHILS % (AUTO) 0 % (0-6); LYMPHOCYTES # (AUTO) 0.3 X10'3 (1.1-4.8); MEAN CORPUSCULAR HEMOGLOBIN 31.9 PG (27.0-31.0); MONOCYTES # (AUTO) 1.4 X10'3 (0-0.9)
[2020-10-01 02:58] LABS: BASOPHILS % (AUTO) 0.1 % (0-1); HEMATOCRIT 23.9 % (42.0-52.0); HEMOGLOBIN 7.9 g/dl (14.0-17.9); LYMPHOCYTES % (AUTO) 1.8 % (21-51); MEAN CORPUSCULAR HGB CONC 33.3 g/dL (33.0-36.5); MEAN CORPUSCULAR VOLUME 96.1 FL (78-98); MEAN PLATELET VOLUME 10.4 FL (7.4-10.4); MONOCYTES % (AUTO) 9.3 % (2-12); NEUTROPHILS # (AUTO) 13.9 X10'3 (1.8-7.7); NEUTROPHILS % (AUTO) 88.8 % (42-75); RED BLOOD COUNT 2.49 X10'6 (4.70-6.10); RED CELL DISTRIBUTION WIDTH 15.8 % (11.5-14.5); WHITE BLOOD COUNT 15.6 X10'3 (4.5-11.0)
[2020-10-01 03:02] LABS: ABG BASE EXCESS 1.6 mmol/L (-2.0-2.0); ABG HCO3 25.3 mmol/L (22.0-26.0); ABG OXYGEN SATURATION 95.3 % (94-97); ABG PCO2 (T) 35.4 mmHg (35.0-48.0); ABG PO2 (T) 76.4 mmHg (75.0-100.0); ALLEN'S TEST POSITIVE; FCOHb 0.9 % (0.0-3.9); FMetHb 0.3 % (0.0-1.5); FO2Hb 94.2 % (94-97); PATIENT TEMPERATURE 36.7; PEEP 9 cm H2O; RESPIRATORY RATE 18 b/min; TIDAL VOLUME 450 mL; TOTAL HEMOGLOBIN 8.2 G/dl (14.0-18.0)
[2020-10-01 03:09] LABS: PLATELET COUNT 49 X10'3 (140-440)
[2020-10-01] MEDS: NORepinephrine inj. 32 MG in normal saline 250ml IV soln 218 ML IV SCH ×2 (03:15→21:06)
[2020-10-01] MEDS: dexmedetomidine/D5W 100mL 100 ML IV SCH ×4 (03:20→17:30)
[2020-10-01 03:21] LABS: ALANINE AMINOTRANSFERASE 717 U/L (12-78); ALBUMIN 1.9 G/DL (3.4-5.0); ALBUMIN/GLOBULIN RATIO 0.4 (1.1-1.5); ALKALINE PHOSPHATASE 188 IU/L (46-116); ANION GAP 9 (8-16); ASPARTATE AMINO TRANSFERASE 293 U/L (10-37); BILIRUBIN,TOTAL 2.8 MG/DL (0.1-1.0); BLOOD UREA NITROGEN 39 MG/DL (7-18); BUN/CREATININE RATIO 23.5 (5.4-32.0); CALCIUM 7.8 MG/DL (8.5-10.1); CHLORIDE 103 MMOL/L (99-107); CREATININE 1.66 MG/DL (0.60-1.10); GLUCOSE 136 MG/DL (70-104); MAGNESIUM 1.8 MG/DL (1.5-2.4); PHOSPHORUS 2.3 MG/DL (2.3-4.5); POTASSIUM 4.4 MMOL/L (3.5-5.1); SODIUM 138 MMOL/L (135-145); TOTAL CARBON DIOXIDE 26.4 MMOL/L (24-32); TOTAL PROTEIN 6.2 G/DL (6.4-8.2); VANCOMYCIN,RANDOM 5.9 UG/ML; eGFR 52 ML/MIN
[2020-10-01] MEDS: Duosol 4K/3 Ca (w/calcium) 5,000 ML HE SCH ×20 (03:32→23:48)
[2020-10-01] MEDS: MEROPENEM 1GM/NS 50ML IVPB 50 ML IV SCH ×3 (05:06→21:14)
[2020-10-01] MEDS: amiodarone/D5 360MG/200ML BAG 200 ML IV SCH ×4 (07:06→21:10)
[2020-10-01] MEDS: hydrocortisone sod succ/PF 100mg/2ml inj. IV SCH ×2 (07:12→20:20)
[2020-10-01] MEDS: pantoprazole 40 MG vial IV SCH (07:13)
[2020-10-01 07:20] LABS: ANISOCYTOSIS 1+; NUCLEATED RED BLOOD CELLS 5 /100WBC (0-0); PLATELET ESTIMATE DECREASED; POLYCHROMASIA 2+; TOTAL CELLS COUNTED 100
--- NOTE | 2020-10-01 07:30 | NUR ---
MD at bedside. Updated on all new and abnormal lab values and patient's condition over night/ this AM. New orders received for 100 cc 25% albumin once in AM and once in PM. patient remains NPO for EGD today.
[2020-10-01] MEDS: sennosides/docusate sodium tablet PO SCH ×2 (08:00→20:00)
[2020-10-01] MEDS ORDERED: albumin (human) 25% 100 ML IV solution IV ONE ×2 (08:00→20:00)
[2020-10-01] MEDS: QUEtiapine 25mg tablet PO SCH ×2 (08:00→20:22)
[2020-10-01] MEDS: midodrine 5mg tablet PO SCH ×3 (08:00→16:56)
[2020-10-01] MEDS: lactobacillus rhamnosus 10,000 MMU CELLS/CAPSULE OGT SCH ×2 (08:00→20:21)
[2020-10-01 08:27] LABS: EOSINOPHILS % (AUTO) 0 % (0-6); HEMATOCRIT 22.8 % (42.0-52.0); RED BLOOD COUNT 2.36 X10'6 (4.70-6.10)
[2020-10-01 08:28] LABS: BASOPHILS % (AUTO) 0.2 % (0-1); HEMOGLOBIN 7.6 g/dl (14.0-17.9); LYMPHOCYTES # (AUTO) 0.5 X10'3 (1.1-4.8); LYMPHOCYTES % (AUTO) 3.3 % (21-51); MEAN CORPUSCULAR HEMOGLOBIN 32.4 PG (27.0-31.0); MEAN CORPUSCULAR HGB CONC 33.5 g/dL (33.0-36.5); MEAN CORPUSCULAR VOLUME 96.7 FL (78-98); MONOCYTES # (AUTO) 1.3 X10'3 (0-0.9); MONOCYTES % (AUTO) 8.3 % (2-12); NEUTROPHILS # (AUTO) 13.2 X10'3 (1.8-7.7); NEUTROPHILS % (AUTO) 88.2 % (42-75); PLATELET COUNT 55 X10'3 (140-440); RED CELL DISTRIBUTION WIDTH 15.6 % (11.5-14.5)
[2020-10-01 08:42] LABS: ALANINE AMINOTRANSFERASE 652 U/L (12-78); ALBUMIN/GLOBULIN RATIO 0.5 (1.1-1.5); ALKALINE PHOSPHATASE 183 IU/L (46-116); ANION GAP 6 (8-16); ASPARTATE AMINO TRANSFERASE 249 U/L (10-37); BILIRUBIN,TOTAL 2.6 MG/DL (0.1-1.0); BLOOD UREA NITROGEN 35 MG/DL (7-18); BUN/CREATININE RATIO 23.8 (5.4-32.0); CALCIUM 8.1 MG/DL (8.5-10.1); CHLORIDE 104 MMOL/L (99-107); CREATININE 1.47 MG/DL (0.60-1.10); GLUCOSE 119 MG/DL (70-104); MAGNESIUM 1.8 MG/DL (1.5-2.4); PHOSPHORUS 2.5 MG/DL (2.3-4.5); POTASSIUM 4.7 MMOL/L (3.5-5.1); SODIUM 138 MMOL/L (135-145); TOTAL CARBON DIOXIDE 28.2 MMOL/L (24-32); TOTAL PROTEIN 6.1 G/DL (6.4-8.2); eGFR 59 ML/MIN
[2020-10-01] MEDS ORDERED: EPOETIN ALFA-EPBX 20,000 UNIT/ML 1 ML MDV SQ ONE (10:35)
--- NOTE | 2020-10-01 11:06 | NUR ---
pt temp below 36. placed stephanie hugger on patient.
[2020-10-01 14:36] LABS: BASOPHILS % (AUTO) 0.1 % (0-1); EOSINOPHILS % (AUTO) 0 % (0-6); HEMATOCRIT 22.8 % (42.0-52.0); LYMPHOCYTES # (AUTO) 0.4 X10'3 (1.1-4.8); LYMPHOCYTES % (AUTO) 2.7 % (21-51); MONOCYTES # (AUTO) 1.4 X10'3 (0-0.9)
[2020-10-01 14:37] LABS: HEMOGLOBIN 7.5 g/dl (14.0-17.9); MEAN CORPUSCULAR VOLUME 96.9 FL (78-98); MEAN PLATELET VOLUME 10.6 FL (7.4-10.4); MONOCYTES % (AUTO) 9.2 % (2-12); NEUTROPHILS # (AUTO) 13.2 X10'3 (1.8-7.7); PLATELET COUNT 58 X10'3 (140-440); RED BLOOD COUNT 2.36 X10'6 (4.70-6.10); RED CELL DISTRIBUTION WIDTH 15.8 % (11.5-14.5)
[2020-10-01] MEDS ORDERED: fentaNYL/PF 50MCG/1 ML 2ML syringe ONE (14:37)
[2020-10-01] MEDS ORDERED: MIDAZolam 1 MG/ML 5ML VIAL ONE (14:37)
[2020-10-01 14:52] LABS: ALANINE AMINOTRANSFERASE 550 U/L (12-78); ALBUMIN 2.2 G/DL (3.4-5.0); ALBUMIN/GLOBULIN RATIO 0.6 (1.1-1.5); ALKALINE PHOSPHATASE 175 IU/L (46-116); ANION GAP 6 (8-16); ASPARTATE AMINO TRANSFERASE 196 U/L (10-37); BLOOD UREA NITROGEN 33 MG/DL (7-18); BUN/CREATININE RATIO 22.3 (5.4-32.0); CHLORIDE 102 MMOL/L (99-107); CREATININE 1.48 MG/DL (0.60-1.10); GLUCOSE 161 MG/DL (70-104); MAGNESIUM 1.9 MG/DL (1.5-2.4); PHOSPHORUS 2.8 MG/DL (2.3-4.5); POTASSIUM 5.3 MMOL/L (3.5-5.1); SODIUM 136 MMOL/L (135-145); TOTAL CARBON DIOXIDE 27.6 MMOL/L (24-32); TOTAL PROTEIN 6.2 G/DL (6.4-8.2); eGFR 59 ML/MIN
[2020-10-01] MEDS: insulin regular, human U-100 3ml vial - multi-dose SQ SCH (20:01)
[2020-10-01] MEDS: insulin glargine (Lantus) pen - multi-dose SQ SCH (20:03)
[2020-10-01 20:10] LABS: EOSINOPHILS % (AUTO) 0 % (0-6); MONOCYTES # (AUTO) 1.2 X10'3 (0-0.9)
[2020-10-01 20:12] LABS: BASOPHILS % (AUTO) 0.1 % (0-1); HEMATOCRIT 23.3 % (42.0-52.0); HEMOGLOBIN 7.8 g/dl (14.0-17.9); LYMPHOCYTES # (AUTO) 0.5 X10'3 (1.1-4.8); LYMPHOCYTES % (AUTO) 3.5 % (21-51); MEAN CORPUSCULAR HEMOGLOBIN 32.5 PG (27.0-31.0); MEAN CORPUSCULAR HGB CONC 33.4 g/dL (33.0-36.5); MEAN CORPUSCULAR VOLUME 97.6 FL (78-98); MEAN PLATELET VOLUME 10.7 FL (7.4-10.4); MONOCYTES % (AUTO) 8.9 % (2-12); NEUTROPHILS # (AUTO) 11.4 X10'3 (1.8-7.7); NEUTROPHILS % (AUTO) 87.5 % (42-75); PLATELET COUNT 58 X10'3 (140-440); RED BLOOD COUNT 2.38 X10'6 (4.70-6.10); RED CELL DISTRIBUTION WIDTH 15.5 % (11.5-14.5)
[2020-10-01 20:36] LABS: ALANINE AMINOTRANSFERASE 496 U/L (12-78); ALBUMIN 2.1 G/DL (3.4-5.0); ALBUMIN/GLOBULIN RATIO 0.5 (1.1-1.5); ALKALINE PHOSPHATASE 174 IU/L (46-116); ANION GAP 7 (8-16); ASPARTATE AMINO TRANSFERASE 167 U/L (10-37); BILIRUBIN,TOTAL 3.1 MG/DL (0.1-1.0); BLOOD UREA NITROGEN 34 MG/DL (7-18); BUN/CREATININE RATIO 23.9 (5.4-32.0); CALCIUM 7.9 MG/DL (8.5-10.1); CHLORIDE 103 MMOL/L (99-107); CREATININE 1.42 MG/DL (0.60-1.10); GLUCOSE 222 MG/DL (70-104); MAGNESIUM 1.8 MG/DL (1.5-2.4); POTASSIUM 5.2 MMOL/L (3.5-5.1); SODIUM 136 MMOL/L (135-145); TOTAL CARBON DIOXIDE 25.8 MMOL/L (24-32); TOTAL PROTEIN 6.1 G/DL (6.4-8.2); eGFR 62 ML/MIN
[2020-10-02] VITALS (28 sets, daily range): BP systolic 83–133; BP diastolic 49–70
[2020-10-02] MEDS: dexmedetomidine/D5W 100mL 100 ML IV SCH ×3 (01:29→13:07)
[2020-10-02] MEDS: insulin regular, human U-100 3ml vial - multi-dose SQ SCH ×4 (02:26→20:50)
[2020-10-02] MEDS: mineral oil/petrolatum ophthal oint EACHEYE SCH ×4 (02:27→20:40)
[2020-10-02] MEDS: albuterol 2.5 MG/3 ML nebule NEB SCH ×6 (03:10→23:01)
[2020-10-02 03:19] LABS: BASOPHILS % (AUTO) 0.1 % (0-1); EOSINOPHILS % (AUTO) 0 % (0-6); HEMOGLOBIN 7.7 g/dl (14.0-17.9); LYMPHOCYTES # (AUTO) 0.4 X10'3 (1.1-4.8); RED CELL DISTRIBUTION WIDTH 15.5 % (11.5-14.5); WHITE BLOOD COUNT 12.9 X10'3 (4.5-11.0)
[2020-10-02 03:22] LABS: MEAN CORPUSCULAR HEMOGLOBIN 32.6 PG (27.0-31.0); MEAN CORPUSCULAR HGB CONC 33.4 g/dL (33.0-36.5); MEAN CORPUSCULAR VOLUME 97.8 FL (78-98); MEAN PLATELET VOLUME 10.6 FL (7.4-10.4); MONOCYTES # (AUTO) 1.2 X10'3 (0-0.9); MONOCYTES % (AUTO) 9.6 % (2-12); NEUTROPHILS # (AUTO) 11.3 X10'3 (1.8-7.7); NEUTROPHILS % (AUTO) 87.3 % (42-75); PLATELET COUNT 67 X10'3 (140-440); RED BLOOD COUNT 2.35 X10'6 (4.70-6.10)
[2020-10-02 03:25] LABS: PARTIAL THROMBOPLASTIN TIME 39 SECONDS (22-32)
[2020-10-02 03:37] LABS: ALANINE AMINOTRANSFERASE 468 U/L (12-78); ALBUMIN 2.4 G/DL (3.4-5.0); ALBUMIN/GLOBULIN RATIO 0.6 (1.1-1.5); ALKALINE PHOSPHATASE 191 IU/L (46-116); ANION GAP 8 (8-16); ASPARTATE AMINO TRANSFERASE 133 U/L (10-37); BILIRUBIN,TOTAL 2.8 MG/DL (0.1-1.0); BLOOD UREA NITROGEN 34 MG/DL (7-18); BUN/CREATININE RATIO 23.8 (5.4-32.0); CALCIUM 8.1 MG/DL (8.5-10.1); CHLORIDE 103 MMOL/L (99-107); CREATININE 1.43 MG/DL (0.60-1.10); GLUCOSE 189 MG/DL (70-104); POTASSIUM 4.6 MMOL/L (3.5-5.1); SODIUM 138 MMOL/L (135-145); TOTAL CARBON DIOXIDE 27.2 MMOL/L (24-32); TOTAL PROTEIN 6.3 G/DL (6.4-8.2); eGFR 61 ML/MIN
[2020-10-02 03:38] LABS: PHOSPHORUS 2.7 MG/DL (2.3-4.5); TRIGLYCERIDES 97 MG/DL (20-135)
[2020-10-02 03:54] LABS: ABG BASE EXCESS -0.7 mmol/L (-2.0-2.0); ABG HCO3 23.3 mmol/L (22.0-26.0); ABG OXYGEN SATURATION 92.5 % (94-97); ABG PCO2 (T) 34.8 mmHg (35.0-48.0); ABG PO2 (T) 61.6 mmHg (75.0-100.0); FCOHb 1.2 % (0.0-3.9); FMetHb 0.3 % (0.0-1.5); FO2Hb 91.1 % (94-97); PATIENT TEMPERATURE 36.5; PEEP 9 cm H2O; RESPIRATORY RATE 16 b/min; TIDAL VOLUME 450 mL
[2020-10-02] MEDS: MEROPENEM 1GM/NS 50ML IVPB 50 ML IV SCH ×3 (04:24→13:00)
[2020-10-02] MEDS: Duosol 4K/3 Ca (w/calcium) 5,000 ML HE SCH ×2 (04:42→05:00)
--- NOTE | 2020-10-02 06:30 | NUR ---
Patient in room ICU 2044. I have received report from Rodo GOMEZ and had the opportunity to ask questions and assume patient care.
--- NOTE | 2020-10-02 06:35 | NUR ---
Patient in room ICU 2044. I have received report from PATRICIA Koehler and had the opportunity to ask questions and assume patient care.
[2020-10-02] MEDS: pantoprazole 40 MG vial IV SCH (07:38)
[2020-10-02] MEDS: lactobacillus rhamnosus 10,000 MMU CELLS/CAPSULE OGT SCH ×2 (07:39→20:38)
[2020-10-02] MEDS: hydrocortisone sod succ/PF 100mg/2ml inj. IV SCH ×2 (07:39→20:39)
[2020-10-02] MEDS: QUEtiapine 25mg tablet PO SCH ×2 (07:39→20:38)
[2020-10-02 07:40] LABS: NUCLEATED RED BLOOD CELLS 2 /100WBC (0-0); PLATELET ESTIMATE DECREASED; TOTAL CELLS COUNTED 100
[2020-10-02] MEDS: midodrine 5mg tablet PO SCH ×3 (07:40→15:34)
[2020-10-02] MEDS: sennosides/docusate sodium tablet PO SCH ×2 (07:40→20:38)
[2020-10-02 07:41] LABS: ANISOCYTOSIS 1+; HYPOCHROMASIA 1+; POLYCHROMASIA 2+
[2020-10-02 07:42] LABS: TARGET CELLS 1+
[2020-10-02] MEDS: amiodarone/D5 360MG/200ML BAG 200 ML IV SCH ×3 (07:56→18:05)
--- NOTE | 2020-10-02 09:04 | NUR ---
Called Carrie regarding serous fluid drainage from this mornings turn for an Xray and stated to redress the site.
[2020-10-02 09:10] LABS: BASOPHILS % (AUTO) 0.1 % (0-1); EOSINOPHILS % (AUTO) 0.1 % (0-6); HEMATOCRIT 22.2 % (42.0-52.0); HEMOGLOBIN 7.2 g/dl (14.0-17.9); LYMPHOCYTES # (AUTO) 0.3 X10'3 (1.1-4.8); LYMPHOCYTES % (AUTO) 2.1 % (21-51); MEAN CORPUSCULAR HEMOGLOBIN 31.9 PG (27.0-31.0); MEAN CORPUSCULAR HGB CONC 32.5 g/dL (33.0-36.5); MEAN CORPUSCULAR VOLUME 98.3 FL (78-98); MEAN PLATELET VOLUME 11.5 FL (7.4-10.4); MONOCYTES # (AUTO) 1.3 X10'3 (0-0.9); MONOCYTES % (AUTO) 10.1 % (2-12); NEUTROPHILS # (AUTO) 11.6 X10'3 (1.8-7.7); NEUTROPHILS % (AUTO) 87.6 % (42-75); PLATELET COUNT 72 X10'3 (140-440); RED BLOOD COUNT 2.26 X10'6 (4.70-6.10); RED CELL DISTRIBUTION WIDTH 15.6 % (11.5-14.5); WHITE BLOOD COUNT 13.2 X10'3 (4.5-11.0)
--- NOTE | 2020-10-02 09:16 | NUR ---
Hematology notified of pts H/H of 7.2/22.2. Notified Dr. Butler and was asked to replace [address] Butler also ordered Zofran IV PRN q 6 hours.
[2020-10-02 09:22] LABS: ALANINE AMINOTRANSFERASE 377 U/L (12-78); ALBUMIN 2.1 G/DL (3.4-5.0); ALBUMIN/GLOBULIN RATIO 0.6 (1.1-1.5); ALKALINE PHOSPHATASE 204 IU/L (46-116); ANION GAP 5 (8-16); ASPARTATE AMINO TRANSFERASE 112 U/L (10-37); BILIRUBIN,TOTAL 2.4 MG/DL (0.1-1.0); BLOOD UREA NITROGEN 40 MG/DL (7-18); BUN/CREATININE RATIO 25.6 (5.4-32.0); CALCIUM 7.7 MG/DL (8.5-10.1); CHLORIDE 104 MMOL/L (99-107); CREATININE 1.56 MG/DL (0.60-1.10); GLUCOSE 166 MG/DL (70-104); MAGNESIUM 1.8 MG/DL (1.5-2.4); PHOSPHORUS 2.5 MG/DL (2.3-4.5); POTASSIUM 4.2 MMOL/L (3.5-5.1); SODIUM 137 MMOL/L (135-145); TOTAL CARBON DIOXIDE 27.7 MMOL/L (24-32); TOTAL PROTEIN 5.6 G/DL (6.4-8.2); eGFR 55 ML/MIN
[2020-10-02 09:59] LABS: ABG BASE EXCESS -0.8 mmol/L (-2.0-2.0); ABG HCO3 23.1 mmol/L (22.0-26.0); ABG OXYGEN SATURATION 92.8 % (94-97); ABG PCO2 (T) 33.2 mmHg (35.0-48.0); ABG PO2 (T) 64.1 mmHg (75.0-100.0); ALLEN'S TEST POSITIVE; FCOHb 0.9 % (0.0-3.9); FMetHb 0.3 % (0.0-1.5); FO2Hb 91.7 % (94-97); PATIENT TEMPERATURE 36.3; PEEP 7 cm H2O; TOTAL HEMOGLOBIN 7.7 G/dl (14.0-18.0)
[2020-10-02] MEDS: ondansetron/PF 4mg/2ml inj IV PRN ×2 (10:01→17:42)
--- NOTE | 2020-10-02 11:04 | NUR ---
Temp 36.0 celsius, placed barehugger on pt
[2020-10-02] MEDS ORDERED: heparin 1,000 units/ml 10ml inj HE ONE ×2 (11:50)
[2020-10-02] MEDS ORDERED: albumin (human) 25% 100 ML IV solution IV ONE (13:20)
[2020-10-02 15:17] LABS: BASOPHILS % (AUTO) 0.2 % (0-1); EOSINOPHILS % (AUTO) 0 % (0-6); HEMATOCRIT 25.4 % (42.0-52.0); HEMOGLOBIN 8.4 g/dl (14.0-17.9); LYMPHOCYTES # (AUTO) 0.2 X10'3 (1.1-4.8); LYMPHOCYTES % (AUTO) 1.7 % (21-51); MEAN CORPUSCULAR HEMOGLOBIN 31.2 PG (27.0-31.0); MEAN CORPUSCULAR HGB CONC 32.9 g/dL (33.0-36.5); MEAN CORPUSCULAR VOLUME 94.8 FL (78-98); MEAN PLATELET VOLUME 9.8 FL (7.4-10.4); MONOCYTES # (AUTO) 1.2 X10'3 (0-0.9); MONOCYTES % (AUTO) 10.2 % (2-12); NEUTROPHILS # (AUTO) 10.7 X10'3 (1.8-7.7); NEUTROPHILS % (AUTO) 87.9 % (42-75); PLATELET COUNT 62 X10'3 (140-440); RED BLOOD COUNT 2.68 X10'6 (4.70-6.10); RED CELL DISTRIBUTION WIDTH 16.8 % (11.5-14.5); WHITE BLOOD COUNT 12.2 X10'3 (4.5-11.0)
--- NOTE | 2020-10-02 18:23 | NUR ---
Problems reprioritized. Patient report given, questions answered & plan of care reviewed with PATRICIA Herzog .
--- NOTE | 2020-10-02 18:23 | NUR ---
Problems reprioritized. Patient report given, questions answered & plan of care reviewed with Rosenda GOMEZ.
--- NOTE | 2020-10-02 18:24 | NUR ---
Patient in room ICU 2044. I have received report from Leeann and Abigail Rao and had the opportunity to ask questions and assume patient care.
[2020-10-02] MEDS: insulin glargine (Lantus) pen - multi-dose SQ SCH (20:52)
[2020-10-02] MEDS: dexmedetomidine inj. 400 MCG in normal saline 100ml IV soln 96 ML IV SCH (22:31)
[2020-10-03] VITALS (24 sets, daily range): BP systolic 53–142; BP diastolic 9–70
[2020-10-03] MEDS: amiodarone/D5 360MG/200ML BAG 200 ML IV SCH ×2 (00:05→04:41)
[2020-10-03] MEDS: FENTANYL-0.9 % NACL/PF 100 ML IV PRN ×2 (01:59→20:51)
[2020-10-03] MEDS: insulin regular, human U-100 3ml vial - multi-dose SQ SCH ×3 (02:07→20:38)
[2020-10-03] MEDS: mineral oil/petrolatum ophthal oint EACHEYE SCH ×4 (02:20→20:11)
[2020-10-03] MEDS: NORepinephrine inj. 32 MG in normal saline 250ml IV soln 218 ML IV SCH (03:15)
[2020-10-03 03:16] LABS: BASOPHILS % (AUTO) 0.1 % (0-1); EOSINOPHILS % (AUTO) 0 % (0-6); HEMATOCRIT 25.5 % (42.0-52.0); HEMOGLOBIN 8.3 g/dl (14.0-17.9); LYMPHOCYTES # (AUTO) 0.2 X10'3 (1.1-4.8); LYMPHOCYTES % (AUTO) 1.4 % (21-51); MEAN CORPUSCULAR HEMOGLOBIN 31.2 PG (27.0-31.0); MEAN CORPUSCULAR HGB CONC 32.7 g/dL (33.0-36.5); MEAN CORPUSCULAR VOLUME 95.5 FL (78-98); MONOCYTES # (AUTO) 1.3 X10'3 (0-0.9); MONOCYTES % (AUTO) 11.1 % (2-12); NEUTROPHILS # (AUTO) 10.6 X10'3 (1.8-7.7); NEUTROPHILS % (AUTO) 87.4 % (42-75); PLATELET COUNT 61 X10'3 (140-440); RED BLOOD COUNT 2.67 X10'6 (4.70-6.10); RED CELL DISTRIBUTION WIDTH 17.5 % (11.5-14.5); WHITE BLOOD COUNT 12.1 X10'3 (4.5-11.0)
[2020-10-03 03:26] LABS: PARTIAL THROMBOPLASTIN TIME 40 SECONDS (22-32)
[2020-10-03 03:37] LABS: ALANINE AMINOTRANSFERASE 294 U/L (12-78); ALBUMIN 2.4 G/DL (3.4-5.0); ALBUMIN/GLOBULIN RATIO 0.7 (1.1-1.5); ALKALINE PHOSPHATASE 265 IU/L (46-116); ANION GAP 11 (8-16); ASPARTATE AMINO TRANSFERASE 95 U/L (10-37); BILIRUBIN,TOTAL 2.1 MG/DL (0.1-1.0); BLOOD UREA NITROGEN 68 MG/DL (7-18); BUN/CREATININE RATIO 26.2 (5.4-32.0); CALCIUM 7.5 MG/DL (8.5-10.1); CHLORIDE 101 MMOL/L (99-107); GLUCOSE 185 MG/DL (70-104); PHOSPHORUS 3.4 MG/DL (2.3-4.5); POTASSIUM 4.4 MMOL/L (3.5-5.1); PREALBUMIN 11.1 MG/DL (19-36); SODIUM 136 MMOL/L (135-145); TOTAL CARBON DIOXIDE 24.1 MMOL/L (24-32); TOTAL PROTEIN 5.9 G/DL (6.4-8.2); eGFR 31 ML/MIN
[2020-10-03 04:19] LABS: ABG BASE EXCESS -2.7 mmol/L (-2.0-2.0); ABG HCO3 21.7 mmol/L (22.0-26.0); ABG OXYGEN SATURATION 93.1 % (94-97); ABG PCO2 (T) 35.2 mmHg (35.0-48.0); ABG PO2 (T) 62.6 mmHg (75.0-100.0); FCOHb 0.6 % (0.0-3.9); FMetHb 0.2 % (0.0-1.5); FO2Hb 92.4 % (94-97); PATIENT TEMPERATURE 36.7; PEEP 6 cm H2O; RESPIRATORY RATE 16 b/min; TIDAL VOLUME 450 mL; TOTAL HEMOGLOBIN 8.9 G/dl (14.0-18.0)
[2020-10-03] MEDS: dexmedetomidine inj. 400 MCG in normal saline 100ml IV soln 96 ML IV SCH (06:03)
--- NOTE | 2020-10-03 06:19 | NUR ---
Problems reprioritized. Patient report given, questions answered & plan of care reviewed with Leeann and Abigail RNs.
--- NOTE | 2020-10-03 06:30 | NUR ---
Patient in room ICU 2044. I have received report from Rosenda GOMEZ and had the opportunity to ask questions and assume patient care.
--- NOTE | 2020-10-03 06:41 | NUR ---
Patient in room ICU 2044. I have received report from PATRICIA Herzog and had the opportunity to ask questions and assume patient care.
--- NOTE | 2020-10-03 07:25 | NUR ---
Per Carrie, start to wean pt off of precedex of rate of 0.1 mcg, start pt on fent at 25, place pt of CPAP trial and discontinue amiodarone gtt.
[2020-10-03] MEDS: pantoprazole 40 MG vial IV SCH (07:36)
[2020-10-03] MEDS: lactobacillus rhamnosus 10,000 MMU CELLS/CAPSULE OGT SCH ×2 (07:36→20:10)
[2020-10-03] MEDS: hydrocortisone sod succ/PF 100mg/2ml inj. IV SCH ×2 (07:36→20:10)
[2020-10-03] MEDS: QUEtiapine 25mg tablet PO SCH (07:37)
[2020-10-03] MEDS: sennosides/docusate sodium tablet PO SCH (07:37)
[2020-10-03] MEDS: midodrine 5mg tablet PO SCH ×2 (07:37→12:26)
[2020-10-03] MEDS: albuterol 2.5 MG/3 ML nebule NEB SCH ×5 (07:48→23:05)
[2020-10-03] MEDS ORDERED: MEROPENEM 1GM/NS 50ML IVPB 50 ML IV SCH (08:00)
[2020-10-03] MEDS ORDERED: apixaban 5mg tablet NG SCH (08:41)
[2020-10-03] MEDS ORDERED: meropenem inj 500 MG in normal saline 100ml IV soln 100 ML IV PRN (09:05)
--- NOTE | 2020-10-03 09:20 | NUR ---
RT attempted to place pt on a CPAP trial X2 and pt ended up going apenic.
[2020-10-03] MEDS: ondansetron/PF 4mg/2ml inj IV PRN (09:53)
[2020-10-03] MEDS: MESSAGE TO NURSING IV SCH (10:00)
--- NOTE | 2020-10-03 10:15 | NUR ---
New order from Carrie to give 500cc % albumin, titrate precedx to 0.5, and titrate fentanyl to 50 if as needed. Asked about giving eliquis as platelet count is 61. Carrie stated that it should be fine as he also consulted pharmacy. Addendum: 10/03/20 at 1025 by Abigail Dunham RN Notified Carrie of pt being apenic for CPAP trials x3. Addendum: 10/03/20 at 1159 by Abigail Dunham RN 5% albumin
[2020-10-03] MEDS ORDERED: albumin (Human) 5% 250ml 250 ML IV ONE ×2 (10:20)
--- NOTE | 2020-10-03 10:24 | NUR ---
New goal rate for TF is 80 Addendum: 10/03/20 at 1058 by Abigail Dunham RN incorrect pt
--- NOTE | 2020-10-03 10:35 | NUR ---
F/u 10/03: Pt remains intubated tolerating TF at goal GRV WNL. RD d/w RN regarding additional 180ml free water BID if MD agreeable in order to provide Jaydon BID for L foot full thickness wound. Pt off of CVVH now on HD; updated TF recs below. ESA d/w RN regarding new TF recs off CVVH. PALB 11.1 up from prior 6.3. Rectal tube -200ml 09/30 output per EMR receiving routine senna. Will monitor for TF tolerance and adjustment needs as medically indicated. Recommendations: 1) Continuous Vital AF via OGT with goal rate of 80mL/hr. To provide 1920mL total volume/day, 2304kcal, 144g protein, and 1555mL water 2) Additional water flush per MD given ESRD on HD and CHF; Consider Jaydon BID w/ 180ml water flushes BID for wound healing needs if MD agreeable 3) Prealbumin q Saturday/; daily weights 4) Routine bowel care Addendum: 10/03/20 at [address] Amended: Links added.
--- NOTE | 2020-10-03 11:15 | NUR ---
New dietary orders for Vital AF 1.2 with a new rate of 80.
--- NOTE | 2020-10-03 11:16 | NUR ---
RT placed pt on CPAP/PS. No apnea noted. Pt on Precedex at 0.3, fent at 25.
--- NOTE | 2020-10-03 11:25 | NUR ---
Pt went apenic for a moment. Vent when ventilation mode. Called Carrie regarding pt maintaining CPAP/PS mode. Stated to titrate precedex as needed.
--- NOTE | 2020-10-03 13:45 | NUR ---
Jeanie at bedside. Requested to see wound in AM
--- NOTE | 2020-10-03 14:05 | NUR ---
Physical therapy at bedside
--- NOTE | 2020-10-03 14:30 | NUR ---
Pt dangled with PT for a bit and got fatigued. Pt was then returned to bed where he desaturated to the 86-87% and took a few minutes to recover. Pt had a lot of secretions and therefore provided suction via OG tube. Pt is extremely sensitive to suction so I suctioned along pts gumline with the gustavo. Pt remained on CPAP/PS through all of this. Pt refused x2 from myself and PATRICIA Bradshaw to be suctioned as it elicits a gag reflex that turns into bouts of coughing fits. Addendum: 10/03/20 at 1616 by Abigail Dunham RN provided suction via oropharangeal suction*
[2020-10-03] MEDS: dextrose 50%-water 50ml dispensing syringe IV PRN (15:37)
--- NOTE | 2020-10-03 15:45 | NUR ---
Pt had a hypoglycemic epsiode, BS of 70. Gave Dextrose 50% at 25cc and reassessed pts BS. BS read 121.
--- NOTE | 2020-10-03 15:55 | NUR ---
Pt went apenic again and ventilator switched to A/C PRVC setting. Notified RT and Dr. Butler about it and asked Dr. Butler if he wanted to leave him on the A/C PRVC setting or CPAP/PS. Carrie stated to leave pt on AC PRVC
[2020-10-03] MEDS: midodrine 5mg tablet OGT SCH (16:30)
--- NOTE | 2020-10-03 18:10 | NUR ---
Patient in room ICU 2044. I have received report from Leeann and Abigail Rao and had the opportunity to ask questions and assume patient care.
--- NOTE | 2020-10-03 18:18 | NUR ---
Problems reprioritized. Patient report given, questions answered & plan of care reviewed with PATRICIA Herzog.
--- NOTE | 2020-10-03 18:27 | NUR ---
Problems reprioritized. Patient report given, questions answered & plan of care reviewed with Rosenda GOMEZ.
[2020-10-03] MEDS: QUEtiapine 25mg tablet OGT SCH (20:09)
[2020-10-03] MEDS: apixaban 5mg tablet OGT SCH (20:10)
[2020-10-03] MEDS: sennosides/docusate sodium tablet OGT SCH (20:10)
[2020-10-03] MEDS: ARGININE/GLUTAMINE/CALCIUM BMB (JUVEN 19.3GM PKT) 1 EACH POWD.PACK OGT SCH (20:11)
[2020-10-03] MEDS: insulin glargine (Lantus) pen - multi-dose SQ SCH (20:40)
[2020-10-04] VITALS (24 sets, daily range): BP systolic 111–144; BP diastolic 48–70
--- NOTE | 2020-10-04 00:10 | NUR ---
0000 TF residual check: 370 ml's aspirated. 300 mls returned with 30mls water flush as ordered. Will re-check in 1 hour. Addendum: 10/04/20 at 0012 by Rosenda Landin RN Amended: Links added.
[2020-10-04] MEDS: mineral oil/petrolatum ophthal oint EACHEYE SCH ×4 (02:28→20:00)
[2020-10-04] MEDS: dexmedetomidine inj. 400 MCG in normal saline 100ml IV soln 96 ML IV SCH ×2 (02:28→07:08)
[2020-10-04] MEDS: insulin regular, human U-100 3ml vial - multi-dose SQ SCH ×4 (02:38→21:08)
[2020-10-04 02:48] LABS: BASOPHILS % (AUTO) 0 % (0-1); EOSINOPHILS % (AUTO) 0 % (0-6); HEMATOCRIT 24.6 % (42.0-52.0); HEMOGLOBIN 7.9 g/dl (14.0-17.9); LYMPHOCYTES # (AUTO) 0.1 X10'3 (1.1-4.8); LYMPHOCYTES % (AUTO) 1.3 % (21-51); MEAN CORPUSCULAR HEMOGLOBIN 30.9 PG (27.0-31.0); MEAN CORPUSCULAR HGB CONC 32.3 g/dL (33.0-36.5); MEAN CORPUSCULAR VOLUME 95.4 FL (78-98); MEAN PLATELET VOLUME 10.1 FL (7.4-10.4); MONOCYTES # (AUTO) 1.4 X10'3 (0-0.9); MONOCYTES % (AUTO) 12.5 % (2-12); NEUTROPHILS # (AUTO) 9.8 X10'3 (1.8-7.7); NEUTROPHILS % (AUTO) 86.2 % (42-75); PLATELET COUNT 61 X10'3 (140-440); RED BLOOD COUNT 2.57 X10'6 (4.70-6.10); RED CELL DISTRIBUTION WIDTH 17.9 % (11.5-14.5); WHITE BLOOD COUNT 11.3 X10'3 (4.5-11.0)
[2020-10-04 02:58] LABS: PARTIAL THROMBOPLASTIN TIME 44 SECONDS (22-32)
[2020-10-04] MEDS: albuterol 2.5 MG/3 ML nebule NEB SCH ×6 (02:59→22:59)
[2020-10-04 03:05] LABS: ALANINE AMINOTRANSFERASE 211 U/L (12-78); ALBUMIN 2.4 G/DL (3.4-5.0); ALBUMIN/GLOBULIN RATIO 0.7 (1.1-1.5); ALKALINE PHOSPHATASE 241 IU/L (46-116); ANION GAP 13 (8-16); ASPARTATE AMINO TRANSFERASE 80 U/L (10-37); BILIRUBIN,TOTAL 1.6 MG/DL (0.1-1.0); BLOOD UREA NITROGEN 110 MG/DL (7-18); BUN/CREATININE RATIO 26.5 (5.4-32.0); CHLORIDE 99 MMOL/L (99-107); CREATININE 4.15 MG/DL (0.60-1.10); GLUCOSE 296 MG/DL (70-104); PHOSPHORUS 5.3 MG/DL (2.3-4.5); SODIUM 134 MMOL/L (135-145); TOTAL CARBON DIOXIDE 22.5 MMOL/L (24-32); TOTAL PROTEIN 5.8 G/DL (6.4-8.2); eGFR 18 ML/MIN
[2020-10-04 03:09] LABS: ABG BASE EXCESS -7.9 mmol/L (-2.0-2.0); ABG HCO3 17.6 mmol/L (22.0-26.0); ABG PCO2 (T) 34.1 mmHg (35.0-48.0); ABG PO2 (T) 82.1 mmHg (75.0-100.0); FCOHb 0.9 % (0.0-3.9); FMetHb 0.2 % (0.0-1.5); FO2Hb 94.9 % (94-97); PATIENT TEMPERATURE 36.1; PEEP 6 cm H2O; RESPIRATORY RATE 16 b/min; TIDAL VOLUME 450 mL; TOTAL HEMOGLOBIN 8.4 G/dl (14.0-18.0)
--- NOTE | 2020-10-04 06:22 | NUR ---
Problems reprioritized. Patient report given, questions answered & plan of care reviewed with Leeann and Abigail RNs.
--- NOTE | 2020-10-04 06:24 | NUR ---
Patient in room ICU 2044. I have received report from PATRICIA Herzog and had the opportunity to ask questions and assume patient care.
--- NOTE | 2020-10-04 06:44 | NUR ---
Patient in room ICU 2044. I have received report from Rosenda GOMEZ and had the opportunity to ask questions and assume patient care.
[2020-10-04] MEDS: FENTANYL-0.9 % NACL/PF 100 ML IV PRN (07:13)
--- NOTE | 2020-10-04 07:13 | NUR ---
ETT tube was found at 21 at teeth, RT Jr advanced tube to 25 at the teeth, will order CXR to verify placement
[2020-10-04] MEDS: hydrocortisone sod succ/PF 100mg/2ml inj. IV SCH ×2 (07:35→20:59)
[2020-10-04] MEDS: apixaban 5mg tablet OGT SCH ×2 (07:36→21:00)
[2020-10-04] MEDS: sennosides/docusate sodium tablet OGT SCH ×2 (07:36→21:00)
[2020-10-04] MEDS: lactobacillus rhamnosus 10,000 MMU CELLS/CAPSULE OGT SCH ×2 (07:36→20:59)
[2020-10-04] MEDS: lansoprazole 15mg solutab OGT SCH (07:36)
[2020-10-04] MEDS: ARGININE/GLUTAMINE/CALCIUM BMB (JUVEN 19.3GM PKT) 1 EACH POWD.PACK OGT SCH ×2 (07:36→20:00)
[2020-10-04] MEDS: QUEtiapine 25mg tablet OGT SCH ×2 (08:00→21:00)
[2020-10-04] MEDS ORDERED: heparin 1,000 units/ml 10ml inj HE ONE ×2 (08:00)
[2020-10-04] MEDS ORDERED: albumin (human) 25% 100ml IV 100 ML IV PRN (08:00)
[2020-10-04] MEDS: midodrine 5mg tablet OGT SCH ×3 (08:00→16:00)
[2020-10-04] MEDS ORDERED: EPOETIN ALFA-EPBX 20,000 UNIT/ML 1 ML MDV IV ONE (08:00)
--- NOTE | 2020-10-04 09:40 | NUR ---
RT placed pt on CPAP/PS
[2020-10-04] MEDS: MESSAGE TO NURSING IV SCH (10:00)
--- NOTE | 2020-10-04 10:17 | NUR ---
Per Miranda wolf a new form of bowel care and keep left IJ. Addendum: 10/04/20 at 1023 by Abigail Dunham RN colace BID, ducolax suppository PRN, lactulose PRN
[2020-10-04] MEDS ORDERED: lactulose 20gm/30ml cup PO PRN (10:20)
[2020-10-04] MEDS ORDERED: bisacodyl 10mg suppository rectal RC PRN (10:20)
--- NOTE | 2020-10-04 10:40 | NUR ---
Rounds Note Reviewed systems, labs, and diagnostic studies, requested additional orders for bowel care due to lack of bowel movements, ordered colace, dolcolax suppository and lactulose. discussed weaning parameters, stated to try and get a new set after dialysis, patients is still have thick secretions, Dr. Pete has been requested to consult in regards to the left lung loculated pleural effusion vs empyema
--- NOTE | 2020-10-04 10:50 | NUR ---
Paged PICC nurse for PIV placement
[2020-10-04] MEDS ORDERED: docusate sodium 100mg/10ml UD cup PO ONE (11:40)
[2020-10-04] MEDS ORDERED: valacyclovir 500mg tablet PO ONE (12:45)
[2020-10-04] MEDS: MEROPENEM 1GM/NS 50ML IVPB 50 ML IV SCH (16:24)
[2020-10-04] MEDS ORDERED: pantoprazole 40 MG vial IV ONE (16:45)
--- NOTE | 2020-10-04 17:52 | NUR ---
Pt refuses oral care
[2020-10-04] MEDS ORDERED: midodrine 5mg tablet OGT ONE (18:00)
--- NOTE | 2020-10-04 18:28 | NUR ---
Problems reprioritized. Patient report given, questions answered & plan of care reviewed with PATRICIA Gutiérrez.
[2020-10-04] MEDS: dexmedetomidine/D5W 100mL 100 ML IV SCH (18:36)
[2020-10-04] MEDS ORDERED: pantoprazole 40MG/NS 100ML BAG 100 ML IV SCH (21:00)
[2020-10-04] MEDS: docusate sodium 100mg/10ml UD cup PO SCH (21:00)
[2020-10-04] MEDS: insulin glargine (Lantus) pen - multi-dose SQ SCH (21:07)
[2020-10-05] VITALS (23 sets, daily range): BP systolic 116–168; BP diastolic 55–73
[2020-10-05 02:09] LABS: BASOPHILS % (AUTO) 0.2 % (0-1); EOSINOPHILS % (AUTO) 0 % (0-6); HEMATOCRIT 24.6 % (42.0-52.0); HEMOGLOBIN 8.2 g/dl (14.0-17.9); LYMPHOCYTES # (AUTO) 0.1 X10'3 (1.1-4.8); LYMPHOCYTES % (AUTO) 1.4 % (21-51); MEAN CORPUSCULAR HEMOGLOBIN 31.7 PG (27.0-31.0); MEAN CORPUSCULAR HGB CONC 33.3 g/dL (33.0-36.5); MEAN PLATELET VOLUME 10.6 FL (7.4-10.4); MONOCYTES # (AUTO) 1.8 X10'3 (0-0.9); MONOCYTES % (AUTO) 17.3 % (2-12); NEUTROPHILS # (AUTO) 8.3 X10'3 (1.8-7.7); NEUTROPHILS % (AUTO) 81.1 % (42-75); PLATELET COUNT 79 X10'3 (140-440); RED BLOOD COUNT 2.59 X10'6 (4.70-6.10); RED CELL DISTRIBUTION WIDTH 17.9 % (11.5-14.5); WHITE BLOOD COUNT 10.3 X10'3 (4.5-11.0)
[2020-10-05 02:14] LABS: PARTIAL THROMBOPLASTIN TIME 38 SECONDS (22-32)
[2020-10-05 02:20] LABS: ALANINE AMINOTRANSFERASE 190 U/L (12-78); ALBUMIN 2.2 G/DL (3.4-5.0); ALBUMIN/GLOBULIN RATIO 0.6 (1.1-1.5); ALKALINE PHOSPHATASE 230 IU/L (46-116); ANION GAP 12 (8-16); ASPARTATE AMINO TRANSFERASE 89 U/L (10-37); BILIRUBIN,TOTAL 1.7 MG/DL (0.1-1.0); BLOOD UREA NITROGEN 77 MG/DL (7-18); BUN/CREATININE RATIO 23.3 (5.4-32.0); CALCIUM 6.8 MG/DL (8.5-10.1); CHLORIDE 100 MMOL/L (99-107); GLUCOSE 149 MG/DL (70-104); MAGNESIUM 1.8 MG/DL (1.5-2.4); PHOSPHORUS 3.5 MG/DL (2.3-4.5); POTASSIUM 4.3 MMOL/L (3.5-5.1); SODIUM 137 MMOL/L (135-145); TOTAL CARBON DIOXIDE 25.3 MMOL/L (24-32); TOTAL PROTEIN 5.6 G/DL (6.4-8.2); eGFR 23 ML/MIN
[2020-10-05] MEDS: insulin regular, human U-100 3ml vial - multi-dose SQ SCH (02:31)
[2020-10-05] MEDS: mineral oil/petrolatum ophthal oint EACHEYE SCH ×2 (02:32→08:00)
[2020-10-05] MEDS: dexmedetomidine/D5W 100mL 100 ML IV SCH ×3 (02:47→21:10)
[2020-10-05 03:25] LABS: TOTAL CELLS COUNTED 100
[2020-10-05 03:26] LABS: ANISOCYTOSIS 1+; LARGE PLATELETS FEW; PLATELET ESTIMATE DECREASED; TARGET CELLS 1+
[2020-10-05 03:28] LABS: HYPOCHROMASIA 1+; POLYCHROMASIA 2+
[2020-10-05] MEDS: albuterol 2.5 MG/3 ML nebule NEB SCH ×3 (03:50→10:57)
[2020-10-05 04:02] LABS: ABG HCO3 25.2 mmol/L (22.0-26.0); ABG OXYGEN SATURATION 97.3 % (94-97); ABG PCO2 (T) 38.6 mmHg (35.0-48.0); ABG PO2 (T) 103.3 mmHg (75.0-100.0); FCOHb 1.5 % (0.0-3.9); FMetHb 0.3 % (0.0-1.5); FO2Hb 95.5 % (94-97); PATIENT TEMPERATURE 37.3; TOTAL HEMOGLOBIN 8.3 G/dl (14.0-18.0)
[2020-10-05] MEDS: ARGININE/GLUTAMINE/CALCIUM BMB (JUVEN 19.3GM PKT) 1 EACH POWD.PACK OGT SCH ×2 (08:00→21:09)
[2020-10-05] MEDS: MESSAGE TO NURSING IV SCH (10:00)
[2020-10-05] MEDS: sennosides/docusate sodium tablet OGT SCH ×2 (10:16→20:46)
[2020-10-05] MEDS: lactobacillus rhamnosus 10,000 MMU CELLS/CAPSULE OGT SCH ×2 (10:16→20:45)
[2020-10-05] MEDS: apixaban 5mg tablet OGT SCH ×2 (10:16→20:46)
[2020-10-05] MEDS: docusate sodium 100mg/10ml UD cup PO SCH ×2 (10:16→20:45)
[2020-10-05] MEDS: lansoprazole 15mg solutab OGT SCH (10:16)
[2020-10-05] MEDS: QUEtiapine 25mg tablet OGT SCH ×2 (10:17→20:45)
[2020-10-05] MEDS: midodrine 5mg tablet OGT SCH (10:17)
[2020-10-05] MEDS: MEROPENEM 1GM/NS 50ML IVPB 50 ML IV SCH (10:50)
[2020-10-05] MEDS: hydrocortisone sod succ/PF 100mg/2ml inj. IV SCH (10:50)
[2020-10-05] MEDS ORDERED: ipratropium/albuterol 3ml nebule NEB PRN (11:50)
[2020-10-05] MEDS ORDERED: racepinephrine 11.25mg/0.5ml nebule NEB PRN (11:50)
[2020-10-05] MEDS: ipratropium/albuterol 3ml nebule NEB SCH ×2 (14:46→20:47)
[2020-10-05] MEDS: insulin glargine (Lantus) pen - multi-dose SQ SCH (21:00)
[2020-10-06] VITALS (24 sets, daily range): BP systolic 128–176; BP diastolic 58–89
[2020-10-06 01:51] LABS: PARTIAL THROMBOPLASTIN TIME 41 SECONDS (22-32)
[2020-10-06 01:56] LABS: ALANINE AMINOTRANSFERASE 137 U/L (12-78); ALBUMIN 2.2 G/DL (3.4-5.0); ALBUMIN/GLOBULIN RATIO 0.7 (1.1-1.5); ALKALINE PHOSPHATASE 154 IU/L (46-116); ANION GAP 14 (8-16); ASPARTATE AMINO TRANSFERASE 44 U/L (10-37); BILIRUBIN,TOTAL 1.7 MG/DL (0.1-1.0); BLOOD UREA NITROGEN 109 MG/DL (7-18); BUN/CREATININE RATIO 22.5 (5.4-32.0); CALCIUM 6.7 MG/DL (8.5-10.1); CHLORIDE 98 MMOL/L (99-107); CREATININE 4.85 MG/DL (0.60-1.10); GLUCOSE 198 MG/DL (70-104); MAGNESIUM 1.9 MG/DL (1.5-2.4); POTASSIUM 5.1 MMOL/L (3.5-5.1); PREALBUMIN 14.3 MG/DL (19-36); SODIUM 135 MMOL/L (135-145); TOTAL CARBON DIOXIDE 22.7 MMOL/L (24-32); TOTAL PROTEIN 5.5 G/DL (6.4-8.2); eGFR 15 ML/MIN
[2020-10-06 02:11] LABS: BASOPHILS % (AUTO) 0 % (0-1); EOSINOPHILS % (AUTO) 0.1 % (0-6); HEMATOCRIT 23.7 % (42.0-52.0); HEMOGLOBIN 7.8 g/dl (14.0-17.9); LYMPHOCYTES # (AUTO) 0.5 X10'3 (1.1-4.8); LYMPHOCYTES % (AUTO) 5.7 % (21-51); MEAN CORPUSCULAR HEMOGLOBIN 31.4 PG (27.0-31.0); MEAN CORPUSCULAR HGB CONC 33.1 g/dL (33.0-36.5); MEAN CORPUSCULAR VOLUME 94.8 FL (78-98); MONOCYTES # (AUTO) 1.8 X10'3 (0-0.9); MONOCYTES % (AUTO) 21.4 % (2-12); NEUTROPHILS # (AUTO) 6.2 X10'3 (1.8-7.7); NEUTROPHILS % (AUTO) 72.8 % (42-75); PLATELET COUNT 90 X10'3 (140-440); RED CELL DISTRIBUTION WIDTH 18.1 % (11.5-14.5); WHITE BLOOD COUNT 8.5 X10'3 (4.5-11.0)
[2020-10-06] MEDS: ipratropium/albuterol 3ml nebule NEB SCH ×4 (02:32→20:04)
[2020-10-06 02:53] LABS: ANISOCYTOSIS 2+; HYPOCHROMASIA 1+; LARGE PLATELETS FEW; PLATELET ESTIMATE DECREASED; POLYCHROMASIA 2+; TARGET CELLS 1+; TOTAL CELLS COUNTED 100
[2020-10-06 02:54] LABS: POIKILOCYTOSIS FEW
--- NOTE | 2020-10-06 06:45 | NUR ---
paged Speech therapy that patient has orders for bedside swallow eval.
[2020-10-06] MEDS: dexmedetomidine/D5W 100mL 100 ML IV SCH (07:47)
[2020-10-06] MEDS ORDERED: heparin 1,000unit/ml 10ml vial 10 ML IV ONE (08:00)
[2020-10-06] MEDS ORDERED: heparin 1,000 units/ml 10ml inj HE ONE ×2 (08:00)
[2020-10-06] MEDS ORDERED: EPOETIN ALFA-EPBX 20,000 UNIT/ML 1 ML MDV IV ONE (08:00)
[2020-10-06] MEDS ORDERED: normal saline 1000ml 250 ML IV PRN (08:00)
[2020-10-06] MEDS: ARGININE/GLUTAMINE/CALCIUM BMB (JUVEN 19.3GM PKT) 1 EACH POWD.PACK OGT SCH ×2 (08:00→19:38)
[2020-10-06] MEDS: sennosides/docusate sodium tablet OGT SCH ×2 (09:03→19:39)
[2020-10-06] MEDS: apixaban 5mg tablet OGT SCH ×2 (09:03→19:41)
[2020-10-06] MEDS: lansoprazole 15mg solutab OGT SCH (09:04)
[2020-10-06] MEDS: cefepime 1GM/NS ADD-VANTAGE 100 ML IV SCH (09:04)
[2020-10-06] MEDS: lactobacillus rhamnosus 10,000 MMU CELLS/CAPSULE OGT SCH ×2 (09:04→19:39)
[2020-10-06] MEDS: docusate sodium 100mg/10ml UD cup PO SCH ×2 (09:04→19:39)
[2020-10-06] MEDS: QUEtiapine 25mg tablet OGT SCH ×2 (09:04→19:39)
[2020-10-06] MEDS: MESSAGE TO NURSING IV SCH (10:00)
--- NOTE | 2020-10-06 10:30 | NUR ---
MD updated on patient's labs, imaging and condition over night. New orders received for patient diet.
--- NOTE | 2020-10-06 11:18 | NUR ---
Reassessment: Pt extubated 10/05 and TF discontinued. Diet has just been advanced to renal CHO controlled, pending first meal since diet advancement. D/w dietary to mix Jaydon packet in strawberry smoothie since pt now on a PO diet. LBM 09/11, receiving routine bowel care with additional bowel care available. D/w dietary to send power pudding with next meal to further assist with bowel regularity. Will continue to follow closely. Recommendations: 1) Continue renal CHO controlled diet 2) Jaydon smoothie BIDBD for wound healing needs 3) Routine bowel care 4) Scaled weights per rx Addendum: 10/06/20 at [address] Amended: Links added.
--- NOTE | 2020-10-06 18:48 | NUR ---
Patient report given, questions answered & plan of care reviewed with Jamarcus GOMEZ.
--- NOTE | 2020-10-06 19:21 | NUR ---
damp wash cloth applied on pt lips throughout the shift to keep him comfortable
[2020-10-06] MEDS: insulin glargine (Lantus) pen - multi-dose SQ SCH (21:00)
--- NOTE | 2020-10-06 21:48 | NUR ---
holding insulin for this evening, confirmed this with chargemaster specialist
--- NOTE | 2020-10-06 22:45 | NUR ---
notified dr guevara do get something po for pain. ordered tramadol 50 Q8 for moderate pain
[2020-10-06] MEDS: traMADol 50MG tablet PO PRN (23:24)
[2020-10-07] VITALS (16 sets, daily range): BP systolic 114–184; BP diastolic 45–79
[2020-10-07] MEDS: ipratropium/albuterol 3ml nebule NEB SCH ×4 (02:27→20:37)
[2020-10-07 03:24] LABS: PARTIAL THROMBOPLASTIN TIME 41 SECONDS (22-32)
--- NOTE | 2020-10-07 06:18 | NUR ---
Problems reprioritized. Patient report given, questions answered & plan of care reviewed with herminio kenney.
[2020-10-07] MEDS: docusate sodium 100mg/10ml UD cup PO SCH ×2 (07:49→20:09)
[2020-10-07] MEDS: sennosides/docusate sodium tablet OGT SCH ×2 (07:49→20:09)
[2020-10-07] MEDS: lactobacillus rhamnosus 10,000 MMU CELLS/CAPSULE OGT SCH ×2 (07:49→20:09)
[2020-10-07] MEDS: QUEtiapine 25mg tablet OGT SCH ×2 (07:49→20:09)
[2020-10-07] MEDS: apixaban 5mg tablet OGT SCH ×2 (07:49→20:09)
[2020-10-07] MEDS: cefepime 1GM/NS ADD-VANTAGE 100 ML IV SCH (07:49)
[2020-10-07] MEDS: lansoprazole 15mg solutab OGT SCH (07:49)
[2020-10-07] MEDS: ARGININE/GLUTAMINE/CALCIUM BMB (JUVEN 19.3GM PKT) 1 EACH POWD.PACK OGT SCH ×2 (08:00→20:00)
[2020-10-07] MEDS: insulin Lispro (HumaLOG) vial - multi-dose SQ SCH (09:46)
[2020-10-07] MEDS: MESSAGE TO NURSING IV SCH (10:00)
[2020-10-07 11:36] LABS: BASOPHILS % (AUTO) 0.1 % (0-1); EOSINOPHILS % (AUTO) 0.2 % (0-6); HEMATOCRIT 27.6 % (42.0-52.0); HEMOGLOBIN 9.1 g/dl (14.0-17.9); LYMPHOCYTES # (AUTO) 0.8 X10'3 (1.1-4.8); LYMPHOCYTES % (AUTO) 7.4 % (21-51); MEAN CORPUSCULAR HEMOGLOBIN 31.4 PG (27.0-31.0); MEAN CORPUSCULAR VOLUME 95.3 FL (78-98); MEAN PLATELET VOLUME 9.1 FL (7.4-10.4); MONOCYTES # (AUTO) 1.6 X10'3 (0-0.9); MONOCYTES % (AUTO) 15.4 % (2-12); NEUTROPHILS % (AUTO) 76.9 % (42-75); PLATELET COUNT 152 X10'3 (140-440); RED BLOOD COUNT 2.89 X10'6 (4.70-6.10); RED CELL DISTRIBUTION WIDTH 18.5 % (11.5-14.5); WHITE BLOOD COUNT 10.4 X10'3 (4.5-11.0)
[2020-10-07 11:53] LABS: ALANINE AMINOTRANSFERASE 105 U/L (12-78); ALBUMIN 2.2 G/DL (3.4-5.0); ALBUMIN/GLOBULIN RATIO 0.5 (1.1-1.5); ALKALINE PHOSPHATASE 156 IU/L (46-116); ANION GAP 12 (8-16); ASPARTATE AMINO TRANSFERASE 35 U/L (10-37); BILIRUBIN,TOTAL 2.6 MG/DL (0.1-1.0); BLOOD UREA NITROGEN 69 MG/DL (7-18); BUN/CREATININE RATIO 15.4 (5.4-32.0); CALCIUM 7.3 MG/DL (8.5-10.1); CHLORIDE 101 MMOL/L (99-107); CREATININE 4.49 MG/DL (0.60-1.10); GLUCOSE 220 MG/DL (70-104); PHOSPHORUS 4.2 MG/DL (2.3-4.5); POTASSIUM 4.7 MMOL/L (3.5-5.1); SODIUM 138 MMOL/L (135-145); TOTAL PROTEIN 6.3 G/DL (6.4-8.2); eGFR 16 ML/MIN
[2020-10-07 12:07] LABS: TOTAL CELLS COUNTED 100
[2020-10-07 12:08] LABS: ANISOCYTOSIS 2+; LARGE PLATELETS FEW; PLATELET ESTIMATE NORMAL; POLYCHROMASIA 1+
--- NOTE | 2020-10-07 14:30 | NUR ---
Patient in room CICU 2009. I have received report from KINSEY GOMEZ and had the opportunity to ask questions and assume patient care.
--- NOTE | 2020-10-07 15:05 | NUR ---
PT TRANSFERRED FROM ICU, CHANGED ALL DRESSING, BATHE PT. CALL LIGHT AND TV WITH IN REACH
[2020-10-07] MEDS: ondansetron/PF 4mg/2ml inj IV PRN (20:05)
[2020-10-07] MEDS: insulin glargine (Lantus) pen - multi-dose SQ SCH (20:32)
[2020-10-08 02:00] VITALS: BP 155/65
[2020-10-08] MEDS: ipratropium/albuterol 3ml nebule NEB SCH ×4 (03:25→21:00)
--- NOTE | 2020-10-08 06:00 | NUR ---
Patient in room PCU 3026. I have received report from URSULA GOMEZ and had the opportunity to ask questions and assume patient care.
[2020-10-08 07:33] VITALS: BP 149/68
[2020-10-08] MEDS ORDERED: heparin 1,000 units/ml 10ml inj HE ONE ×2 (08:00)
[2020-10-08] MEDS ORDERED: heparin 1,000unit/ml 10ml vial 10 ML IV ONE (08:00)
[2020-10-08] MEDS ORDERED: normal saline 1000ml 250 ML IV PRN (08:00)
[2020-10-08] MEDS ORDERED: EPOETIN ALFA-EPBX 20,000 UNIT/ML 1 ML MDV IV ONE (08:00)
[2020-10-08] MEDS: traMADol 50MG tablet PO PRN ×2 (08:45→19:57)
[2020-10-08] MEDS: QUEtiapine 25mg tablet OGT SCH ×2 (08:45→19:57)
[2020-10-08] MEDS: apixaban 5mg tablet OGT SCH ×2 (08:45→19:57)
[2020-10-08] MEDS: lactobacillus rhamnosus 10,000 MMU CELLS/CAPSULE OGT SCH ×2 (08:45→19:56)
[2020-10-08] MEDS: lansoprazole 15mg solutab OGT SCH (08:46)
[2020-10-08] MEDS: sennosides/docusate sodium tablet OGT SCH ×2 (08:46→19:57)
[2020-10-08] MEDS: ARGININE/GLUTAMINE/CALCIUM BMB (JUVEN 19.3GM PKT) 1 EACH POWD.PACK OGT SCH ×2 (08:46→19:56)
[2020-10-08] MEDS: docusate sodium 100mg/10ml UD cup PO SCH ×2 (08:46→19:56)
[2020-10-08] MEDS: insulin Lispro (HumaLOG) vial - multi-dose SQ SCH ×2 (09:46→18:58)
[2020-10-08] MEDS: MESSAGE TO NURSING IV SCH (10:00)
[2020-10-08 11:40] VITALS: BP 92/57
[2020-10-08 17:19] VITALS: BP 116/63
[2020-10-08] MEDS: ondansetron/PF 4mg/2ml inj IV PRN (17:44)
[2020-10-08 18:00] VITALS: BP 161/68
[2020-10-08] MEDS: insulin glargine (Lantus) pen - multi-dose SQ SCH (21:00)
[2020-10-08 22:00] VITALS: BP 158/64
[2020-10-09 01:28] VITALS: BP 94/47
[2020-10-09] MEDS ORDERED: digoxin 250mcg/ml 2ml ampule IV ONE ×2 (01:40→01:50)
[2020-10-09] MEDS: ipratropium/albuterol 3ml nebule NEB SCH ×4 (02:49→20:12)
[2020-10-09 03:52] LABS: ALBUMIN 1.9 G/DL (3.4-5.0); ANION GAP 10 (8-16); BLOOD UREA NITROGEN 43 MG/DL (7-18); BUN/CREATININE RATIO 11.4 (5.4-32.0); CALCIUM 7.4 MG/DL (8.5-10.1); CHLORIDE 103 MMOL/L (99-107); CREATININE 3.78 MG/DL (0.60-1.10); GLUCOSE 121 MG/DL (70-104); MAGNESIUM 1.8 MG/DL (1.5-2.4); POTASSIUM 4.7 MMOL/L (3.5-5.1); SODIUM 138 MMOL/L (135-145); TOTAL CARBON DIOXIDE 25.1 MMOL/L (24-32); TRIGLYCERIDES 79 MG/DL (20-135); eGFR 20 ML/MIN
--- NOTE | 2020-10-09 03:55 | NUR ---
Dr. Yang notified of HR in 130-140's and a. flutter. Bp 94/47, a significant decrease from prior BP 158/64. Order received for digoxin and it was administered. Also STAT BMP and Mag order received and drawn. Ekg obtained d/t rhythm change from ST to A. flutter. EKG in chart. HR now 120's-130's. Pt refusing BP check Dr. Yang notified of HR, BP refusal and lab results. No new orders received, will continue to monitor.
[2020-10-09 07:00] VITALS: BP 121/52
[2020-10-09] MEDS: ARGININE/GLUTAMINE/CALCIUM BMB (JUVEN 19.3GM PKT) 1 EACH POWD.PACK OGT SCH ×2 (08:00→19:02)
--- NOTE | 2020-10-09 08:11 | NUR ---
Page Sent promotional table spacer PAGER ID: [phone] MESSAGE: [phone] Marco. Patient has new onset Afib since 0110 last night HR trending 120s-140. latest BP 121/52. Mary [id number]
[2020-10-09] MEDS: lactobacillus rhamnosus 10,000 MMU CELLS/CAPSULE OGT SCH ×2 (09:14→20:03)
[2020-10-09] MEDS: apixaban 5mg tablet OGT SCH ×2 (09:14→20:03)
[2020-10-09] MEDS: sennosides/docusate sodium tablet OGT SCH ×2 (09:15→20:03)
[2020-10-09] MEDS: QUEtiapine 25mg tablet OGT SCH ×2 (09:15→20:03)
[2020-10-09] MEDS: lansoprazole 15mg solutab OGT SCH (09:15)
[2020-10-09] MEDS: docusate sodium 100mg/10ml UD cup PO SCH ×2 (09:15→20:03)
[2020-10-09] MEDS: MESSAGE TO NURSING IV SCH (10:00)
[2020-10-09 11:00] VITALS: BP 119/57
--- NOTE | 2020-10-09 11:09 | NUR ---
Insulin after breakfast not administered because blood glucose was 129 and per protocol correctional not required. Patient tray removed from room and no one wrote down what he ate, so there was no way to determine how many carbs he ate.
[2020-10-09] MEDS: valacyclovir 500mg tablet PO SCH ×2 (13:12→20:03)
[2020-10-09] MEDS: insulin Lispro (HumaLOG) vial - multi-dose SQ SCH ×2 (13:14→18:36)
[2020-10-09 15:00] VITALS: BP 137/57
[2020-10-09 18:00] VITALS: BP 151/77
--- NOTE | 2020-10-09 18:01 | NUR ---
Problems reprioritized. Patient report given, questions answered & plan of care reviewed with Smiley GOMEZ . Patient in no acute distress.
[2020-10-09] MEDS: insulin glargine (Lantus) pen - multi-dose SQ SCH (21:00)
[2020-10-09 22:00] VITALS: BP 106/61
[2020-10-10 02:00] VITALS: BP 113/40
[2020-10-10] MEDS: ipratropium/albuterol 3ml nebule NEB SCH ×4 (03:00→21:00)
--- NOTE | 2020-10-10 06:47 | NUR ---
Patient in room PCU 3026. I have received report from Smiley GOMEZ and had the opportunity to ask questions and assume patient care. Pt sleeping in bed in no acute distress.
[2020-10-10 07:00] VITALS: BP 142/66
[2020-10-10] MEDS: docusate sodium 100mg/10ml UD cup PO SCH ×2 (08:00→19:34)
[2020-10-10] MEDS: sennosides/docusate sodium tablet OGT SCH ×2 (08:00→19:34)
[2020-10-10] MEDS: lactobacillus rhamnosus 10,000 MMU CELLS/CAPSULE OGT SCH ×2 (08:50→19:39)
[2020-10-10] MEDS: apixaban 5mg tablet OGT SCH ×2 (08:51→19:39)
[2020-10-10] MEDS: lansoprazole 15mg solutab OGT SCH (08:51)
[2020-10-10] MEDS: valacyclovir 500mg tablet PO SCH ×2 (08:51→19:38)
[2020-10-10] MEDS: QUEtiapine 25mg tablet OGT SCH ×2 (08:51→19:39)
[2020-10-10] MEDS: ARGININE/GLUTAMINE/CALCIUM BMB (JUVEN 19.3GM PKT) 1 EACH POWD.PACK OGT SCH ×2 (08:51→19:34)
[2020-10-10] MEDS: insulin Lispro (HumaLOG) vial - multi-dose SQ SCH ×2 (08:54→19:03)
[2020-10-10] MEDS: MESSAGE TO NURSING IV SCH (10:00)
[2020-10-10 10:42] LABS: BASOPHILS # (AUTO) 0.1 X10'3 (0-0.2); BASOPHILS % (AUTO) 0.3 % (0-1); EOSINOPHILS # (AUTO) 0.2 X10'3 (0-0.9); EOSINOPHILS % (AUTO) 0.8 % (0-6); LYMPHOCYTES # (AUTO) 0.5 X10'3 (1.1-4.8); LYMPHOCYTES % (AUTO) 2.4 % (21-51); MEAN CORPUSCULAR HEMOGLOBIN 30.9 PG (27.0-31.0); MEAN CORPUSCULAR VOLUME 96.3 FL (78-98); MEAN PLATELET VOLUME 8.3 FL (7.4-10.4); MONOCYTES # (AUTO) 1.3 X10'3 (0-0.9); MONOCYTES % (AUTO) 6.7 % (2-12); NEUTROPHILS # (AUTO) 16.9 X10'3 (1.8-7.7); NEUTROPHILS % (AUTO) 89.8 % (42-75); PLATELET COUNT 128 X10'3 (140-440); RED CELL DISTRIBUTION WIDTH 18.7 % (11.5-14.5); WHITE BLOOD COUNT 18.9 X10'3 (4.5-11.0)
[2020-10-10 10:45] LABS: HEMATOCRIT 21.2 % (42.0-52.0); HEMOGLOBIN 6.8 g/dl (14.0-17.9)
--- NOTE | 2020-10-10 10:47 | NUR ---
Page Sent promotional table spacer PAGER ID: [phone] MESSAGE: [id number] . Critical H&H - Hgb 6.8 and Hct 21.2 Mary [id number]
[2020-10-10 10:52] LABS: ALANINE AMINOTRANSFERASE 55 U/L (12-78); ALBUMIN 1.6 G/DL (3.4-5.0); ALBUMIN/GLOBULIN RATIO 0.4 (1.1-1.5); ALKALINE PHOSPHATASE 132 IU/L (46-116); ANION GAP 10 (8-16); ASPARTATE AMINO TRANSFERASE 40 U/L (10-37); BILIRUBIN,TOTAL 1.7 MG/DL (0.1-1.0); BLOOD UREA NITROGEN 58 MG/DL (7-18); BUN/CREATININE RATIO 9.7 (5.4-32.0); CALCIUM 6.9 MG/DL (8.5-10.1); CHLORIDE 101 MMOL/L (99-107); CREATININE 5.98 MG/DL (0.60-1.10); GLUCOSE 186 MG/DL (70-104); MAGNESIUM 1.8 MG/DL (1.5-2.4); POTASSIUM 4.5 MMOL/L (3.5-5.1); PREALBUMIN 9.5 MG/DL (19-36); SODIUM 137 MMOL/L (135-145); TOTAL CARBON DIOXIDE 26.2 MMOL/L (24-32); eGFR 12 ML/MIN
[2020-10-10 11:00] VITALS: BP 119/68
--- NOTE | 2020-10-10 12:29 | NUR ---
Reassessment: Septic shock resolved per MD note. Pt A/O x 1 and confused per physical assessment. Pt continues on renal CHO controlled diet with fluctuating PO intake, averaging 50% up to 75% at breakfast this morning. Noted that pt appears to consume at least some of the protein on meal trays if PO intake of additional items on meal tray is low. Pt documented with 0% PO intake of breakfast 10/09 however per RN note pt's tray was removed from room without documentation of meal so unknown PO intake for that meal. Pt continues receiving Jaydon smoothie for wound healing needs. LBM 10/10. Will continue to follow closely and monitor need for further nutrition intervention. Recommendations: 1) Continue renal CHO controlled diet 2) Jaydon smoothie BIDBD for wound healing needs 3) Consider phos binder with MD approval 4) Routine bowel care 5) Scaled weights per rx Addendum: 10/10/20 at [address] Amended: Links added.
--- NOTE | 2020-10-10 12:33 | NUR ---
I received a telephone order for one unit of blood to be transfused for a HGB below 7. Patient HGB critical at 6.8
[2020-10-10] MEDS: mineral oil/petrolatum, white cream 113gm jar TP SCH (13:45)
[2020-10-10 15:00] VITALS: BP 167/82
--- NOTE | 2020-10-10 15:22 | NUR ---
Patient refused lunch because it is too hard to chew with the extensive mouth sores. I received a verbal order for cc, renal, soft to chew diet.
[2020-10-10 18:00] VITALS: BP 174/80
--- NOTE | 2020-10-10 18:22 | NUR ---
Problems reprioritized. Patient report given, questions answered & plan of care reviewed with Smiley GOMEZ. Patient resting in bed and in no acute distress
[2020-10-10] MEDS: insulin glargine (Lantus) pen - multi-dose SQ SCH (21:00)
[2020-10-10 22:00] VITALS: BP 151/65
[2020-10-11] VITALS (11 sets, daily range): BP systolic 136–190; BP diastolic 63–91
[2020-10-11] MEDS: ipratropium/albuterol 3ml nebule NEB SCH ×4 (02:57→21:00)
[2020-10-11 04:58] LABS: ALANINE AMINOTRANSFERASE 49 U/L (12-78); ALBUMIN 1.7 G/DL (3.4-5.0); ALBUMIN/GLOBULIN RATIO 0.4 (1.1-1.5); ALKALINE PHOSPHATASE 175 IU/L (46-116); ANION GAP 10 (8-16); ASPARTATE AMINO TRANSFERASE 39 U/L (10-37); BILIRUBIN,TOTAL 1.8 MG/DL (0.1-1.0); BLOOD UREA NITROGEN 67 MG/DL (7-18); BUN/CREATININE RATIO 9.4 (5.4-32.0); CALCIUM 7.2 MG/DL (8.5-10.1); CHLORIDE 99 MMOL/L (99-107); CREATININE 7.14 MG/DL (0.60-1.10); GLUCOSE 98 MG/DL (70-104); MAGNESIUM 1.9 MG/DL (1.5-2.4); PHOSPHORUS 4.9 MG/DL (2.3-4.5); POTASSIUM 4.8 MMOL/L (3.5-5.1); SODIUM 133 MMOL/L (135-145); TOTAL CARBON DIOXIDE 24.2 MMOL/L (24-32); TOTAL PROTEIN 6.5 G/DL (6.4-8.2); eGFR 10 ML/MIN
[2020-10-11 05:04] LABS: BASOPHILS # (AUTO) 0.1 X10'3 (0-0.2); BASOPHILS % (AUTO) 0.4 % (0-1); EOSINOPHILS # (AUTO) 0.1 X10'3 (0-0.9); EOSINOPHILS % (AUTO) 0.6 % (0-6); HEMOGLOBIN 7.1 g/dl (14.0-17.9); LYMPHOCYTES # (AUTO) 0.9 X10'3 (1.1-4.8); LYMPHOCYTES % (AUTO) 4.7 % (21-51); MEAN CORPUSCULAR HEMOGLOBIN 31.2 PG (27.0-31.0); MEAN CORPUSCULAR HGB CONC 32.6 g/dL (33.0-36.5); MEAN CORPUSCULAR VOLUME 95.5 FL (78-98); MEAN PLATELET VOLUME 8.4 FL (7.4-10.4); MONOCYTES # (AUTO) 1.5 X10'3 (0-0.9); MONOCYTES % (AUTO) 7.8 % (2-12); NEUTROPHILS # (AUTO) 16.6 X10'3 (1.8-7.7); NEUTROPHILS % (AUTO) 86.5 % (42-75); PLATELET COUNT 128 X10'3 (140-440); RED BLOOD COUNT 2.28 X10'6 (4.70-6.10); RED CELL DISTRIBUTION WIDTH 18.3 % (11.5-14.5); WHITE BLOOD COUNT 19.2 X10'3 (4.5-11.0)
[2020-10-11 05:23] LABS: HEMATOCRIT 21.7 % (42.0-52.0)
--- NOTE | 2020-10-11 05:57 | NUR ---
Lab reported HCT 21.7. This is an improvement from yesterday. Transfusion orders in place. Type and cross still pending.
--- NOTE | 2020-10-11 06:44 | NUR ---
Patient in room PCU 3026. I have received report from PATRICIA Reis and had the opportunity to ask questions and assume patient care.
[2020-10-11] MEDS: lactobacillus rhamnosus 10,000 MMU CELLS/CAPSULE OGT SCH (08:00)
[2020-10-11] MEDS: docusate sodium 100mg/10ml UD cup PO SCH ×2 (08:00→19:57)
[2020-10-11] MEDS ORDERED: heparin 1,000 units/ml 10ml inj HE ONE ×2 (08:00)
[2020-10-11] MEDS: ARGININE/GLUTAMINE/CALCIUM BMB (JUVEN 19.3GM PKT) 1 EACH POWD.PACK OGT SCH (08:00)
[2020-10-11] MEDS ORDERED: heparin 1,000unit/ml 10ml vial 10 ML IV ONE (08:00)
[2020-10-11] MEDS: valacyclovir 500mg tablet PO SCH (08:00)
[2020-10-11] MEDS ORDERED: EPOETIN ALFA-EPBX 20,000 UNIT/ML 1 ML MDV IV ONE (08:00)
[2020-10-11] MEDS: sennosides/docusate sodium tablet OGT SCH (08:00)
--- NOTE | 2020-10-11 09:04 | NUR ---
PT REFUSED 0900 SVN. NO RESP. DISTRESS OBSERVED
[2020-10-11] MEDS: lansoprazole 15mg solutab OGT SCH (09:14)
[2020-10-11] MEDS: QUEtiapine 25mg tablet OGT SCH (09:14)
[2020-10-11] MEDS: mineral oil/petrolatum, white cream 113gm jar TP SCH (09:25)
[2020-10-11] MEDS: insulin Lispro (HumaLOG) vial - multi-dose SQ SCH ×2 (09:44→18:41)
[2020-10-11] MEDS: MESSAGE TO NURSING IV SCH (10:00)
--- NOTE | 2020-10-11 10:46 | NUR ---
Per Dr Doss, due to pt refusing Valtrex, discontinue this medication.
[2020-10-11] MEDS ORDERED: acetaminophen 325mg/10.15ml oral unit dose solution PO PRN (11:25)
[2020-10-11] MEDS ORDERED: dextrose ORAL solution 15 GM/59 ML bottle PO PRN ×2 (11:26)
--- NOTE | 2020-10-11 11:28 | NUR ---
Paged Dr Doss PAGER ID: [phone] MESSAGE: Re Roshan Lara Rm [id number] Pt has low grade fever, can I order PRN Tylenol please? Thank you Irene [phone]
--- NOTE | 2020-10-11 13:15 | NUR ---
Gave pt one unit of PRBC's per md order starting at 1215. Dialysis nurse Nelly ran it through while getting dialysis, it finished infusing at 1310. No complications noted by patient. Will continue to monitor pt.
[2020-10-11 17:32] LABS: HEMATOCRIT 24.2 % (42.0-52.0); MEAN CORPUSCULAR HEMOGLOBIN 29.9 PG (27.0-31.0); MEAN CORPUSCULAR VOLUME 90.7 FL (78-98); MEAN PLATELET VOLUME 7.9 FL (7.4-10.4); PLATELET COUNT 121 X10'3 (140-440); RED BLOOD COUNT 2.67 X10'6 (4.70-6.10); RED CELL DISTRIBUTION WIDTH 20.9 % (11.5-14.5); WHITE BLOOD COUNT 14.1 X10'3 (4.5-11.0)
--- NOTE | 2020-10-11 18:12 | NUR ---
[facility]. Romario olivera[id number] BP is 190/84, HR 100. No PRN orders available, please advise. Thanks Gorge [phone]
[2020-10-11] MEDS ORDERED: hydrALAZINE 20mg/ml inj. IV PRN (18:15)
[2020-10-11] MEDS ORDERED: propranolol 10mg tablet PO ONE (18:15)
--- NOTE | 2020-10-11 18:15 | NUR ---
[place] documentation: I have reviewed and agree with all interventions, assessments performed and documented by PATRICIA Leonardo.
--- NOTE | 2020-10-11 18:16 | NUR ---
Problems reprioritized. Patient report given, questions answered & plan of care reviewed with PATRICIA Reis. Pt sitting up in bed, no signs of distress, blood presure elevated. Paged Dr Doss, waiting for orders.
--- NOTE | 2020-10-11 18:16 | NUR ---
[place] Medication Administration: For this medication-pass time frame, all medication were reviewed, dispensed, administered and documented per hospital policy by PATRICIA Leonardo.
[2020-10-11] MEDS: ARGININE/GLUTAMINE/CALCIUM BMB (JUVEN 19.3GM PKT) 1 EACH POWD.PACK PO SCH (19:57)
[2020-10-11] MEDS: sennosides/docusate sodium tablet PO SCH (19:58)
[2020-10-11] MEDS: propranolol 10mg tablet PO SCH (19:58)
[2020-10-11] MEDS: QUEtiapine 25mg tablet PO SCH (20:13)
[2020-10-11] MEDS: traMADol 50MG tablet PO PRN (20:13)
[2020-10-11] MEDS: lactobacillus rhamnosus 10,000 MMU CELLS/CAPSULE PO SCH (20:13)
[2020-10-11] MEDS: insulin glargine (Lantus) pen - multi-dose SQ SCH (20:21)
[2020-10-12] MEDS: ipratropium/albuterol 3ml nebule NEB SCH ×4 (03:00→20:21)
[2020-10-12 04:00] VITALS: BP 147/71
[2020-10-12 06:00] VITALS: BP 135/63
--- NOTE | 2020-10-12 06:02 | NUR ---
Patient in room PCU 3026. I have received report from PATRICIA Reis and had the opportunity to ask questions and assume patient care.
--- NOTE | 2020-10-12 06:05 | NUR ---
Patient in room PCU 3026. I have received report from Smiley GOMEZ and had the opportunity to ask questions and assume patient care.
[2020-10-12 06:31] LABS: BASOPHILS # (AUTO) 0.1 X10'3 (0-0.2); BASOPHILS % (AUTO) 0.5 % (0-1); EOSINOPHILS # (AUTO) 0.1 X10'3 (0-0.9); EOSINOPHILS % (AUTO) 1.1 % (0-6); HEMATOCRIT 22.8 % (42.0-52.0); HEMOGLOBIN 7.4 g/dl (14.0-17.9); LYMPHOCYTES # (AUTO) 0.9 X10'3 (1.1-4.8); LYMPHOCYTES % (AUTO) 7.5 % (21-51); MEAN CORPUSCULAR HGB CONC 32.6 g/dL (33.0-36.5); MEAN CORPUSCULAR VOLUME 92.3 FL (78-98); MEAN PLATELET VOLUME 8.1 FL (7.4-10.4); MONOCYTES # (AUTO) 1.1 X10'3 (0-0.9); MONOCYTES % (AUTO) 9.2 % (2-12); NEUTROPHILS # (AUTO) 9.9 X10'3 (1.8-7.7); NEUTROPHILS % (AUTO) 81.7 % (42-75); PLATELET COUNT 123 X10'3 (140-440); RED BLOOD COUNT 2.47 X10'6 (4.70-6.10); RED CELL DISTRIBUTION WIDTH 21.9 % (11.5-14.5); WHITE BLOOD COUNT 12.1 X10'3 (4.5-11.0)
[2020-10-12 06:56] LABS: ALANINE AMINOTRANSFERASE 39 U/L (12-78); ALBUMIN 1.7 G/DL (3.4-5.0); ALBUMIN/GLOBULIN RATIO 0.4 (1.1-1.5); ALKALINE PHOSPHATASE 158 IU/L (46-116); ANION GAP 8 (8-16); ASPARTATE AMINO TRANSFERASE 31 U/L (10-37); BILIRUBIN,TOTAL 1.7 MG/DL (0.1-1.0); BLOOD UREA NITROGEN 38 MG/DL (7-18); BUN/CREATININE RATIO 8.5 (5.4-32.0); CALCIUM 7.4 MG/DL (8.5-10.1); CHLORIDE 103 MMOL/L (99-107); CREATININE 4.49 MG/DL (0.60-1.10); GLUCOSE 113 MG/DL (70-104); MAGNESIUM 1.9 MG/DL (1.5-2.4); PHOSPHORUS 3.7 MG/DL (2.3-4.5); POTASSIUM 4.4 MMOL/L (3.5-5.1); SODIUM 139 MMOL/L (135-145); TOTAL CARBON DIOXIDE 27.6 MMOL/L (24-32); TOTAL PROTEIN 6.5 G/DL (6.4-8.2); eGFR 16 ML/MIN
[2020-10-12] MEDS: sennosides/docusate sodium tablet PO SCH ×2 (08:00→20:00)
[2020-10-12] MEDS: ARGININE/GLUTAMINE/CALCIUM BMB (JUVEN 19.3GM PKT) 1 EACH POWD.PACK PO SCH ×2 (08:00→20:00)
[2020-10-12] MEDS: lactobacillus rhamnosus 10,000 MMU CELLS/CAPSULE PO SCH ×2 (08:00→20:16)
[2020-10-12] MEDS: docusate sodium 100mg/10ml UD cup PO SCH ×2 (08:00→20:00)
[2020-10-12] MEDS: propranolol 10mg tablet PO SCH ×3 (08:59→20:15)
[2020-10-12] MEDS: QUEtiapine 25mg tablet PO SCH ×2 (09:00→20:15)
[2020-10-12] MEDS: lansoprazole 15mg solutab PO SCH (09:00)
[2020-10-12] MEDS: mineral oil/petrolatum, white cream 113gm jar TP SCH (09:02)
[2020-10-12] MEDS: insulin Lispro (HumaLOG) vial - multi-dose SQ SCH ×3 (09:53→19:02)
[2020-10-12] MEDS: MESSAGE TO NURSING IV SCH (10:00)
[2020-10-12 11:00] VITALS: BP 156/68
--- NOTE | 2020-10-12 14:06 | NUR ---
Pt. continues to refuse resp. medications. no resp. distress observed
[2020-10-12 15:00] VITALS: BP 141/69
[2020-10-12] MEDS: pantoprazole 40mg Tablet.DR PO SCH (17:43)
--- NOTE | 2020-10-12 17:48 | NUR ---
[place] documentation: I have reviewed and agree with all interventions, assessments performed and documented by PATRICIA Leonardo.
--- NOTE | 2020-10-12 17:49 | NUR ---
[place] Medication Administration: For this medication-pass time frame, all medication were reviewed, dispensed, administered and documented per hospital policy by PATRICIA Leonardo.
[2020-10-12 18:00] VITALS: BP 159/74
--- NOTE | 2020-10-12 18:36 | NUR ---
Problems reprioritized. Patient report given, questions answered & plan of care reviewed with Smiley GOMEZ.
--- NOTE | 2020-10-12 18:38 | NUR ---
Problems reprioritized. Patient report given, questions answered & plan of care reviewed with PATRICIA Reis. Pt sitting up in bed watching tv comfortably. All pt needs met at this time.
[2020-10-12] MEDS: traMADol 50MG tablet PO PRN (20:15)
[2020-10-12] MEDS: insulin glargine (Lantus) pen - multi-dose SQ SCH (20:26)
[2020-10-12 22:00] VITALS: BP 136/69
[2020-10-13 02:00] VITALS: BP 147/64
[2020-10-13] MEDS: ipratropium/albuterol 3ml nebule NEB SCH ×3 (02:43→20:30)
--- NOTE | 2020-10-13 05:34 | NUR ---
IJ removed per order at 2100. Pt refused a PIV.
[2020-10-13 06:00] VITALS: BP 154/72
--- NOTE | 2020-10-13 06:35 | NUR ---
Patient in room PCU 3026. I have received report from Smiley GOMEZ and had the opportunity to ask questions and assume patient care.
[2020-10-13 07:12] LABS: BASOPHILS # (AUTO) 0.1 X10'3 (0-0.2); BASOPHILS % (AUTO) 0.6 % (0-1); EOSINOPHILS # (AUTO) 0.1 X10'3 (0-0.9); EOSINOPHILS % (AUTO) 1.3 % (0-6); HEMATOCRIT 23.4 % (42.0-52.0); HEMOGLOBIN 7.8 g/dl (14.0-17.9); LYMPHOCYTES # (AUTO) 0.8 X10'3 (1.1-4.8); LYMPHOCYTES % (AUTO) 7.7 % (21-51); MEAN CORPUSCULAR HEMOGLOBIN 30.8 PG (27.0-31.0); MEAN CORPUSCULAR HGB CONC 33.3 g/dL (33.0-36.5); MEAN CORPUSCULAR VOLUME 92.4 FL (78-98); MEAN PLATELET VOLUME 7.9 FL (7.4-10.4); MONOCYTES % (AUTO) 9.9 % (2-12); NEUTROPHILS # (AUTO) 8.2 X10'3 (1.8-7.7); NEUTROPHILS % (AUTO) 80.5 % (42-75); PLATELET COUNT 106 X10'3 (140-440); RED BLOOD COUNT 2.53 X10'6 (4.70-6.10); RED CELL DISTRIBUTION WIDTH 20.8 % (11.5-14.5); WHITE BLOOD COUNT 10.2 X10'3 (4.5-11.0)
[2020-10-13 07:31] LABS: ALANINE AMINOTRANSFERASE 36 U/L (12-78); ALBUMIN 1.6 G/DL (3.4-5.0); ALBUMIN/GLOBULIN RATIO 0.3 (1.1-1.5); ALKALINE PHOSPHATASE 157 IU/L (46-116); ANION GAP 10 (8-16); ASPARTATE AMINO TRANSFERASE 35 U/L (10-37); BILIRUBIN,TOTAL 1.4 MG/DL (0.1-1.0); BLOOD UREA NITROGEN 56 MG/DL (7-18); CALCIUM 7.2 MG/DL (8.5-10.1); CHLORIDE 103 MMOL/L (99-107); CREATININE 6.23 MG/DL (0.60-1.10); GLUCOSE 111 MG/DL (70-104); MAGNESIUM 1.8 MG/DL (1.5-2.4); PHOSPHORUS 4.3 MG/DL (2.3-4.5); POTASSIUM 4.5 MMOL/L (3.5-5.1); PREALBUMIN 9.6 MG/DL (19-36); SODIUM 137 MMOL/L (135-145); TOTAL CARBON DIOXIDE 23.8 MMOL/L (24-32); TOTAL PROTEIN 6.7 G/DL (6.4-8.2); eGFR 11 ML/MIN
[2020-10-13] MEDS: docusate sodium 100mg/10ml UD cup PO SCH ×2 (08:00→19:12)
[2020-10-13] MEDS: sennosides/docusate sodium tablet PO SCH ×2 (08:00→19:10)
[2020-10-13] MEDS: lactobacillus rhamnosus 10,000 MMU CELLS/CAPSULE PO SCH ×2 (08:18→19:08)
[2020-10-13] MEDS: propranolol 10mg tablet PO SCH ×3 (08:18→20:25)
[2020-10-13] MEDS: QUEtiapine 25mg tablet PO SCH ×2 (08:18→19:09)
[2020-10-13] MEDS: pantoprazole 40mg Tablet.DR PO SCH (08:18)
[2020-10-13] MEDS: lansoprazole 15mg solutab PO SCH (08:18)
[2020-10-13] MEDS: mineral oil/petrolatum, white cream 113gm jar TP SCH (08:19)
[2020-10-13] MEDS: ARGININE/GLUTAMINE/CALCIUM BMB (JUVEN 19.3GM PKT) 1 EACH POWD.PACK PO SCH ×2 (08:22→20:00)
[2020-10-13] MEDS: insulin Lispro (HumaLOG) vial - multi-dose SQ SCH ×2 (09:03→19:06)
--- NOTE | 2020-10-13 09:12 | NUR ---
Reassessment: MM5 diet added to diet order 10/10. Pt with significant improvement in PO intake up to 75-100% PO intake since 10/11. LBM 10/12. No further nutrition intervention implemented at this time. Will continue to follow and make recommendations as appropriate. Recommendations: 1) Continue MM5 renal CHO controlled diet 2) Jaydon smoothie BIDBD for wound healing needs 3) Consider phos binder with MD approval 4) Routine bowel care 5) Scaled weights per rx Addendum: 10/13/20 at [address] Amended: Links added.
[2020-10-13] MEDS ORDERED: normal saline 1000ml 250 ML IV PRN (09:20)
[2020-10-13] MEDS ORDERED: heparin 1,000 units/ml 10ml inj HE ONE ×2 (09:20)
[2020-10-13] MEDS ORDERED: EPOETIN ALFA-EPBX 20,000 UNIT/ML 1 ML MDV IV ONE (09:20)
[2020-10-13] MEDS ORDERED: heparin 1,000unit/ml 10ml vial 10 ML IV ONE (09:20)
[2020-10-13 11:00] VITALS: BP 139/82
[2020-10-13 15:00] VITALS: BP 140/72
[2020-10-13 18:00] VITALS: BP 126/69
--- NOTE | 2020-10-13 18:35 | NUR ---
Patient in room PCU 3026. I have received report from PATRICIA Skinner and had the opportunity to ask questions and assume patient care.
--- NOTE | 2020-10-13 18:35 | NUR ---
Problems reprioritized. Patient report given, questions answered & plan of care reviewed with Smiley GOMEZ.
[2020-10-13] MEDS: traMADol 50MG tablet PO PRN (19:09)
[2020-10-13 20:29] LABS: OCCULT BLOOD STOOL POSITIVE (Neg)
[2020-10-13] MEDS: insulin glargine (Lantus) pen - multi-dose SQ SCH (21:00)
[2020-10-13 22:00] VITALS: BP 121/64
[2020-10-14 02:00] VITALS: BP 108/60
[2020-10-14] MEDS: ipratropium/albuterol 3ml nebule NEB SCH ×3 (03:00→20:59)
--- NOTE | 2020-10-14 06:26 | NUR ---
Problems reprioritized. Patient report given, questions answered & plan of care reviewed with PATRICIA Youssef.
[2020-10-14 06:50] LABS: BASOPHILS % (AUTO) 0.5 % (0-1); EOSINOPHILS # (AUTO) 0.1 X10'3 (0-0.9); HEMATOCRIT 23.2 % (42.0-52.0); HEMOGLOBIN 7.7 g/dl (14.0-17.9); LYMPHOCYTES % (AUTO) 11.6 % (21-51); MEAN CORPUSCULAR HEMOGLOBIN 30.7 PG (27.0-31.0); MEAN CORPUSCULAR HGB CONC 33.2 g/dL (33.0-36.5); MEAN CORPUSCULAR VOLUME 92.5 FL (78-98); NEUTROPHILS # (AUTO) 6.2 X10'3 (1.8-7.7); NEUTROPHILS % (AUTO) 74.9 % (42-75); PLATELET COUNT 107 X10'3 (140-440); RED CELL DISTRIBUTION WIDTH 20.1 % (11.5-14.5); WHITE BLOOD COUNT 8.2 X10'3 (4.5-11.0)
[2020-10-14 07:00] VITALS: BP 131/66
[2020-10-14 07:20] LABS: ALANINE AMINOTRANSFERASE 35 U/L (12-78); ALBUMIN 1.7 G/DL (3.4-5.0); ALBUMIN/GLOBULIN RATIO 0.3 (1.1-1.5); ALKALINE PHOSPHATASE 162 IU/L (46-116); ANION GAP 7 (8-16); ASPARTATE AMINO TRANSFERASE 35 U/L (10-37); BILIRUBIN,TOTAL 1.3 MG/DL (0.1-1.0); BLOOD UREA NITROGEN 33 MG/DL (7-18); BUN/CREATININE RATIO 7.3 (5.4-32.0); CALCIUM 7.2 MG/DL (8.5-10.1); CHLORIDE 103 MMOL/L (99-107); CREATININE 4.49 MG/DL (0.60-1.10); GLUCOSE 110 MG/DL (70-104); MAGNESIUM 1.8 MG/DL (1.5-2.4); PHOSPHORUS 3.5 MG/DL (2.3-4.5); POTASSIUM 4.4 MMOL/L (3.5-5.1); SODIUM 136 MMOL/L (135-145); TOTAL CARBON DIOXIDE 26.5 MMOL/L (24-32); eGFR 16 ML/MIN
[2020-10-14] MEDS: docusate sodium 100mg/10ml UD cup PO SCH ×2 (08:00→19:17)
[2020-10-14] MEDS: sennosides/docusate sodium tablet PO SCH ×2 (08:00→19:18)
[2020-10-14] MEDS: propranolol 10mg tablet PO SCH ×3 (08:34→19:32)
[2020-10-14] MEDS: QUEtiapine 25mg tablet PO SCH ×2 (08:35→19:32)
[2020-10-14] MEDS: lansoprazole 15mg solutab PO SCH (08:35)
[2020-10-14] MEDS: pantoprazole 40mg Tablet.DR PO SCH (08:35)
[2020-10-14] MEDS: lactobacillus rhamnosus 10,000 MMU CELLS/CAPSULE PO SCH ×2 (08:35→19:32)
[2020-10-14] MEDS: mineral oil/petrolatum, white cream 113gm jar TP SCH (08:39)
[2020-10-14] MEDS: ARGININE/GLUTAMINE/CALCIUM BMB (JUVEN 19.3GM PKT) 1 EACH POWD.PACK PO SCH ×2 (08:43→19:17)
[2020-10-14] MEDS: insulin Lispro (HumaLOG) vial - multi-dose SQ SCH (09:58)
[2020-10-14 11:00] VITALS: BP 104/53
[2020-10-14 15:00] VITALS: BP 130/68
[2020-10-14 18:00] VITALS: BP 137/69
--- NOTE | 2020-10-14 18:49 | NUR ---
Patient in room PCU 3028G. I have received report from PATRICIA VERGARA & PATRICIA MICHEL and had the opportunity to ask questions and assume patient care.
--- NOTE | 2020-10-14 18:51 | NUR ---
AT 0645 NO9
--- NOTE | 2020-10-14 18:51 | NUR ---
Problems reprioritized. Patient report given, questions answered & plan of care reviewed with PATRICIA VERGARA.
[2020-10-14] MEDS: traMADol 50MG tablet PO PRN (19:32)
[2020-10-14] MEDS: insulin glargine (Lantus) pen - multi-dose SQ SCH (21:00)
[2020-10-14 22:00] VITALS: BP 142/72
[2020-10-15 02:00] VITALS: BP 134/69
[2020-10-15] MEDS: ipratropium/albuterol 3ml nebule NEB SCH ×4 (03:00→20:49)
--- NOTE | 2020-10-15 06:30 | NUR ---
Patient in room PCU 3026. I have received report from Smiley GOMEZ and had the opportunity to ask questions and assume patient care.
[2020-10-15 07:00] VITALS: BP 100/75
[2020-10-15 07:14] LABS: BASOPHILS % (AUTO) 0.4 % (0-1); EOSINOPHILS # (AUTO) 0.1 X10'3 (0-0.9); EOSINOPHILS % (AUTO) 1.4 % (0-6); HEMATOCRIT 22.6 % (42.0-52.0); HEMOGLOBIN 7.5 g/dl (14.0-17.9); LYMPHOCYTES # (AUTO) 0.9 X10'3 (1.1-4.8); LYMPHOCYTES % (AUTO) 11.6 % (21-51); MEAN CORPUSCULAR HEMOGLOBIN 30.6 PG (27.0-31.0); MEAN CORPUSCULAR HGB CONC 33.3 g/dL (33.0-36.5); MEAN CORPUSCULAR VOLUME 91.8 FL (78-98); MEAN PLATELET VOLUME 8.1 FL (7.4-10.4); MONOCYTES # (AUTO) 0.9 X10'3 (0-0.9); MONOCYTES % (AUTO) 10.8 % (2-12); NEUTROPHILS # (AUTO) 6.1 X10'3 (1.8-7.7); NEUTROPHILS % (AUTO) 75.8 % (42-75); PLATELET COUNT 108 X10'3 (140-440); RED BLOOD COUNT 2.46 X10'6 (4.70-6.10); RED CELL DISTRIBUTION WIDTH 19.7 % (11.5-14.5); WHITE BLOOD COUNT 8.1 X10'3 (4.5-11.0)
[2020-10-15 07:45] LABS: ALANINE AMINOTRANSFERASE 36 U/L (12-78); ALBUMIN 1.7 G/DL (3.4-5.0); ALBUMIN/GLOBULIN RATIO 0.3 (1.1-1.5); ALKALINE PHOSPHATASE 161 IU/L (46-116); ANION GAP 11 (8-16); ASPARTATE AMINO TRANSFERASE 36 U/L (10-37); BLOOD UREA NITROGEN 49 MG/DL (7-18); BUN/CREATININE RATIO 8.1 (5.4-32.0); CALCIUM 7.5 MG/DL (8.5-10.1); CHLORIDE 100 MMOL/L (99-107); CREATININE 6.06 MG/DL (0.60-1.10); GLUCOSE 99 MG/DL (70-104); MAGNESIUM 1.8 MG/DL (1.5-2.4); PHOSPHORUS 4.9 MG/DL (2.3-4.5); POTASSIUM 4.4 MMOL/L (3.5-5.1); SODIUM 135 MMOL/L (135-145); TOTAL PROTEIN 7.1 G/DL (6.4-8.2); eGFR 12 ML/MIN
[2020-10-15] MEDS: ARGININE/GLUTAMINE/CALCIUM BMB (JUVEN 19.3GM PKT) 1 EACH POWD.PACK PO SCH ×2 (08:00→20:00)
[2020-10-15] MEDS ORDERED: normal saline 1000ml 250 ML IV PRN (08:00)
[2020-10-15] MEDS ORDERED: EPOETIN ALFA-EPBX 20,000 UNIT/ML 1 ML MDV IV ONE (08:00)
[2020-10-15] MEDS ORDERED: heparin 1,000unit/ml 10ml vial 10 ML IV ONE (08:00)
[2020-10-15] MEDS ORDERED: heparin 1,000 units/ml 10ml inj HE ONE ×2 (08:00)
[2020-10-15] MEDS: mineral oil/petrolatum, white cream 113gm jar TP SCH (08:00)
[2020-10-15 08:55] LABS: ANISOCYTOSIS 2+; PLATELET ESTIMATE DECREASED; POLYCHROMASIA FEW; STOMATOCYTES FEW; TEAR DROP CELLS FEW
[2020-10-15] MEDS: lansoprazole 15mg solutab PO SCH (09:26)
[2020-10-15] MEDS: docusate sodium 100mg/10ml UD cup PO SCH ×2 (09:27→20:00)
[2020-10-15] MEDS: lactobacillus rhamnosus 10,000 MMU CELLS/CAPSULE PO SCH ×2 (09:27→20:00)
[2020-10-15] MEDS: propranolol 10mg tablet PO SCH ×3 (09:27→20:34)
[2020-10-15] MEDS: pantoprazole 40mg Tablet.DR PO SCH (09:27)
[2020-10-15] MEDS: sennosides/docusate sodium tablet PO SCH ×2 (09:27→20:00)
[2020-10-15] MEDS: QUEtiapine 25mg tablet PO SCH ×2 (09:27→20:00)
[2020-10-15] MEDS: traMADol 50MG tablet PO PRN (09:36)
[2020-10-15] MEDS: insulin Lispro (HumaLOG) vial - multi-dose SQ SCH (09:48)
[2020-10-15 11:00] VITALS: BP 121/75
[2020-10-15] MEDS ORDERED: PEG 3350/Na sulf,bicarb,Cl/KCl oral sol 4 liter bottle PO ONE (12:15)
[2020-10-15 15:00] VITALS: BP 133/66
--- NOTE | 2020-10-15 17:52 | NUR ---
Pt refusing bowel prep. Dr. Doss Paged: "PAGER ID: [phone] MESSAGE: RE: Roshan Lara [id number]: pt refusing to drink bowel prep. refusing colonoscopy. "i know i'm bleeding internally, don't care if i just throw me out the ." Pt indicated he wanted to be DNR. -Nidia #[id number]"
[2020-10-15 18:00] VITALS: BP 129/65
--- NOTE | 2020-10-15 18:22 | NUR ---
Problems reprioritized. Patient report given, questions answered & plan of care reviewed with Smiley GOMEZ. discussed pt's refusal of golytely and colonoscopy.
[2020-10-15] MEDS: insulin glargine (Lantus) pen - multi-dose SQ SCH (20:33)
--- NOTE | 2020-10-15 21:00 | NUR ---
Pt states he's "not going to be around much longer". When asked what he meant, pt states "I'm going to get hit by a car". When asked how he'd get hit by a car, pt wouldn't respond. When asked if he want to hurt himself, pt states "No". Pt was asked if he had family or a plan when he got out the hospital, pt refused to answer. Pt then refused all night medications and was resistive to care. PATRICIA Porter (charge nurse notified) and psych consult placed.
[2020-10-15 22:00] VITALS: BP 132/71
[2020-10-16] VITALS (7 sets, daily range): BP systolic 115–163; BP diastolic 54–70
[2020-10-16] MEDS: ipratropium/albuterol 3ml nebule NEB SCH ×2 (03:00→09:00)
[2020-10-16 05:57] LABS: BASOPHILS % (AUTO) 0.4 % (0-1); EOSINOPHILS # (AUTO) 0.1 X10'3 (0-0.9); EOSINOPHILS % (AUTO) 1.6 % (0-6); HEMATOCRIT 22.9 % (42.0-52.0); HEMOGLOBIN 7.6 g/dl (14.0-17.9); LYMPHOCYTES # (AUTO) 1.1 X10'3 (1.1-4.8); LYMPHOCYTES % (AUTO) 16.1 % (21-51); MEAN CORPUSCULAR HGB CONC 33.1 g/dL (33.0-36.5); MEAN CORPUSCULAR VOLUME 93.5 FL (78-98); MEAN PLATELET VOLUME 8.4 FL (7.4-10.4); MONOCYTES # (AUTO) 0.9 X10'3 (0-0.9); MONOCYTES % (AUTO) 13.1 % (2-12); NEUTROPHILS # (AUTO) 4.7 X10'3 (1.8-7.7); NEUTROPHILS % (AUTO) 68.8 % (42-75); PLATELET COUNT 117 X10'3 (140-440); RED BLOOD COUNT 2.45 X10'6 (4.70-6.10); RED CELL DISTRIBUTION WIDTH 20.3 % (11.5-14.5); WHITE BLOOD COUNT 6.8 X10'3 (4.5-11.0)
[2020-10-16 06:30] LABS: ALANINE AMINOTRANSFERASE 40 U/L (12-78); ALBUMIN 1.7 G/DL (3.4-5.0); ALBUMIN/GLOBULIN RATIO 0.3 (1.1-1.5); ALKALINE PHOSPHATASE 178 IU/L (46-116); ANION GAP 6 (8-16); ASPARTATE AMINO TRANSFERASE 47 U/L (10-37); BLOOD UREA NITROGEN 25 MG/DL (7-18); BUN/CREATININE RATIO 5.8 (5.4-32.0); CALCIUM 7.6 MG/DL (8.5-10.1); CHLORIDE 101 MMOL/L (99-107); CREATININE 4.28 MG/DL (0.60-1.10); GLUCOSE 145 MG/DL (70-104); MAGNESIUM 1.7 MG/DL (1.5-2.4); PHOSPHORUS 3.3 MG/DL (2.3-4.5); POTASSIUM 4.7 MMOL/L (3.5-5.1); SODIUM 135 MMOL/L (135-145); TOTAL CARBON DIOXIDE 28.4 MMOL/L (24-32); TOTAL PROTEIN 7.5 G/DL (6.4-8.2); TRIGLYCERIDES 125 MG/DL (20-135); eGFR 17 ML/MIN
--- NOTE | 2020-10-16 06:46 | NUR ---
Patient in room PCU 3026. I have received report from Smiley GOMEZ and had the opportunity to ask questions and assume patient care.
[2020-10-16 07:08] LABS: PLATELET ESTIMATE DECREASED
[2020-10-16 07:09] LABS: ANISOCYTOSIS 3+; POLYCHROMASIA 1+; ROULEAUX 1+; STOMATOCYTES 1+
[2020-10-16 07:10] LABS: TEAR DROP CELLS FEW
[2020-10-16] MEDS: docusate sodium 100mg/10ml UD cup PO SCH ×2 (08:00→20:00)
[2020-10-16] MEDS: ARGININE/GLUTAMINE/CALCIUM BMB (JUVEN 19.3GM PKT) 1 EACH POWD.PACK PO SCH ×2 (08:00→20:00)
[2020-10-16] MEDS: sennosides/docusate sodium tablet PO SCH ×2 (09:07→20:00)
[2020-10-16] MEDS: propranolol 10mg tablet PO SCH ×3 (09:07→20:05)
[2020-10-16] MEDS: pantoprazole 40mg Tablet.DR PO SCH (09:08)
[2020-10-16] MEDS: QUEtiapine 25mg tablet PO SCH ×2 (09:08→20:05)
[2020-10-16] MEDS: lactobacillus rhamnosus 10,000 MMU CELLS/CAPSULE PO SCH ×2 (09:08→20:05)
[2020-10-16] MEDS: lansoprazole 15mg solutab PO SCH (09:09)
[2020-10-16] MEDS: mineral oil/petrolatum, white cream 113gm jar TP SCH (09:11)
--- NOTE | 2020-10-16 17:49 | NUR ---
Patient refused dressing change, patient stated "Later on tonight."
--- NOTE | 2020-10-16 18:09 | NUR ---
Problems reprioritized. Patient report given, questions answered & plan of care reviewed with Anette GOMEZ.
--- NOTE | 2020-10-16 18:15 | NUR ---
Patient in room PCU 3026. I have received report from PATRICIA Howard and had the opportunity to ask questions and assume patient care.
[2020-10-16] MEDS: insulin glargine (Lantus) pen - multi-dose SQ SCH (21:00)
[2020-10-17 02:00] VITALS: BP 143/55
[2020-10-17 06:00] VITALS: BP 129/82
[2020-10-17 06:24] LABS: BASOPHILS % (AUTO) 0.7 % (0-1); EOSINOPHILS # (AUTO) 0.1 X10'3 (0-0.9); EOSINOPHILS % (AUTO) 1.9 % (0-6); HEMATOCRIT 22.1 % (42.0-52.0); HEMOGLOBIN 7.4 g/dl (14.0-17.9); LYMPHOCYTES # (AUTO) 1.3 X10'3 (1.1-4.8); LYMPHOCYTES % (AUTO) 19.5 % (21-51); MEAN CORPUSCULAR HEMOGLOBIN 30.8 PG (27.0-31.0); MEAN CORPUSCULAR HGB CONC 33.5 g/dL (33.0-36.5); MEAN CORPUSCULAR VOLUME 91.9 FL (78-98); MEAN PLATELET VOLUME 8.1 FL (7.4-10.4); MONOCYTES # (AUTO) 0.8 X10'3 (0-0.9); MONOCYTES % (AUTO) 11.4 % (2-12); NEUTROPHILS # (AUTO) 4.4 X10'3 (1.8-7.7); NEUTROPHILS % (AUTO) 66.5 % (42-75); PLATELET COUNT 130 X10'3 (140-440); RED CELL DISTRIBUTION WIDTH 19.9 % (11.5-14.5); WHITE BLOOD COUNT 6.6 X10'3 (4.5-11.0)
--- NOTE | 2020-10-17 06:28 | NUR ---
Problems reprioritized. Patient report given, questions answered & plan of care reviewed with PATRICIA Youssef.
[2020-10-17 06:58] LABS: ALANINE AMINOTRANSFERASE 40 U/L (12-78); ALBUMIN 1.7 G/DL (3.4-5.0); ALBUMIN/GLOBULIN RATIO 0.3 (1.1-1.5); ALKALINE PHOSPHATASE 173 IU/L (46-116); ANION GAP 8 (8-16); ASPARTATE AMINO TRANSFERASE 48 U/L (10-37); BLOOD UREA NITROGEN 40 MG/DL (7-18); BUN/CREATININE RATIO 6.5 (5.4-32.0); CALCIUM 7.7 MG/DL (8.5-10.1); CHLORIDE 101 MMOL/L (99-107); CREATININE 6.18 MG/DL (0.60-1.10); GLUCOSE 103 MG/DL (70-104); MAGNESIUM 1.7 MG/DL (1.5-2.4); PHOSPHORUS 4.5 MG/DL (2.3-4.5); POTASSIUM 5.1 MMOL/L (3.5-5.1); SODIUM 135 MMOL/L (135-145); TOTAL CARBON DIOXIDE 26.4 MMOL/L (24-32); TOTAL PROTEIN 7.5 G/DL (6.4-8.2); eGFR 11 ML/MIN
--- NOTE | 2020-10-17 07:23 | NUR ---
Patient in room PCU 3026Y. I have received report from PATRICIA DUARTE and had the opportunity to ask questions and assume patient care.
[2020-10-17] MEDS: ARGININE/GLUTAMINE/CALCIUM BMB (JUVEN 19.3GM PKT) 1 EACH POWD.PACK PO SCH ×2 (08:00→20:00)
[2020-10-17] MEDS: propranolol 10mg tablet PO SCH ×3 (09:41→21:00)
[2020-10-17] MEDS: sennosides/docusate sodium tablet PO SCH ×2 (09:42→20:00)
[2020-10-17] MEDS: docusate sodium 100mg/10ml UD cup PO SCH ×2 (09:42→20:00)
[2020-10-17] MEDS: lactobacillus rhamnosus 10,000 MMU CELLS/CAPSULE PO SCH ×2 (09:42→20:00)
[2020-10-17] MEDS: pantoprazole 40mg Tablet.DR PO SCH ×3 (09:42→20:00)
[2020-10-17] MEDS: lansoprazole 15mg solutab PO SCH (09:42)
[2020-10-17] MEDS: QUEtiapine 25mg tablet PO SCH ×2 (09:47→20:00)
[2020-10-17 11:00] VITALS: BP 129/57
[2020-10-17] MEDS: mineral oil/petrolatum, white cream 113gm jar TP SCH (13:54)
--- NOTE | 2020-10-17 14:57 | NUR ---
F/u 10/18: Pt briefly placed on clear liquids 10/15 for guaiac positive stool though returned to carb controlled/renal diet without prior MM5 texture modification PO 75-100% avg meals w/ Jaydon smoothies BID meeting minimum needs. LBM 10/17 refused colace and senna this AM per EMR. No nutrition intervention at this time. Will continue to monitor. Recommendations: 1) Continue renal, CHO controlled diet 2) Jaydon smoothie BIDBD for wound healing needs 3) Routine bowel care 4) wts w/ HD Addendum: 10/17/20 at [address] Amended: Links added.
[2020-10-17 15:00] VITALS: BP 130/69
[2020-10-17 18:00] VITALS: BP 129/77
--- NOTE | 2020-10-17 19:22 | NUR ---
Problems reprioritized. Patient report given, questions answered & plan of care reviewed with PATRICIA QUINTANA.
[2020-10-17] MEDS: insulin glargine (Lantus) pen - multi-dose SQ SCH (21:00)
[2020-10-17 22:05] VITALS: BP 139/66
[2020-10-18 02:00] VITALS: BP 151/69
--- NOTE | 2020-10-18 03:46 | NUR ---
PT SATS IN 88% RANGE ON RA. PUT ON 2 LPM AND SATS CAME UP TO 94%
[2020-10-18 06:00] VITALS: BP 152/76
--- NOTE | 2020-10-18 06:40 | NUR ---
Problems reprioritized. Patient report given, questions answered & plan of care reviewed with NAVEEN GOMEZ. Addendum: 10/18/20 at 0640 by Terrence Mota RN Amended: Links added.
--- NOTE | 2020-10-18 06:46 | NUR ---
Patient in room PCU 3026. I have received report from Fitz GOMEZ and had the opportunity to ask questions and assume patient care. Completed bedside report
[2020-10-18] MEDS: QUEtiapine 25mg tablet PO SCH ×2 (07:48→19:00)
[2020-10-18] MEDS: pantoprazole 40mg Tablet.DR PO SCH ×2 (07:48→19:00)
[2020-10-18] MEDS: sennosides/docusate sodium tablet PO SCH ×2 (07:49→19:01)
[2020-10-18] MEDS: propranolol 10mg tablet PO SCH ×3 (07:49→21:10)
[2020-10-18] MEDS: docusate sodium 100mg/10ml UD cup PO SCH ×2 (07:49→19:01)
[2020-10-18] MEDS: lactobacillus rhamnosus 10,000 MMU CELLS/CAPSULE PO SCH ×2 (07:49→19:00)
[2020-10-18] MEDS: ARGININE/GLUTAMINE/CALCIUM BMB (JUVEN 19.3GM PKT) 1 EACH POWD.PACK PO SCH ×2 (07:49→19:01)
[2020-10-18] MEDS: mineral oil/petrolatum, white cream 113gm jar TP SCH (07:50)
[2020-10-18] MEDS ORDERED: EPOETIN ALFA-EPBX 20,000 UNIT/ML 1 ML MDV IV ONE (08:00)
[2020-10-18] MEDS ORDERED: normal saline 1000ml 250 ML IV PRN (08:00)
[2020-10-18] MEDS ORDERED: heparin 1,000unit/ml 10ml vial 10 ML IV ONE (08:00)
[2020-10-18] MEDS ORDERED: heparin 1,000 units/ml 10ml inj HE ONE ×2 (08:00)
[2020-10-18 11:00] VITALS: BP 112/64
[2020-10-18 15:00] VITALS: BP 137/72
[2020-10-18 18:00] VITALS: BP 151/75
--- NOTE | 2020-10-18 18:04 | NUR ---
Problems reprioritized. Patient report given, questions answered & plan of care reviewed with Shoshana GOMEZ. Bedside report completed. Introduced new night nurse.
--- NOTE | 2020-10-18 18:21 | NUR ---
Patient in room PCU 3026. I have received report from PATRICIA Oliveros and had the opportunity to ask questions and assume patient care. Bedside report received, pt eating dinner in bed.
[2020-10-18] MEDS: insulin glargine (Lantus) pen - multi-dose SQ SCH (21:00)
[2020-10-18 22:00] VITALS: BP 139/71
[2020-10-19 02:00] VITALS: BP 130/67
[2020-10-19 06:00] VITALS: BP 136/74
--- NOTE | 2020-10-19 06:28 | NUR ---
Problems reprioritized. Patient report given, questions answered & plan of care reviewed with PATRICIA Roger.
[2020-10-19] MEDS: pantoprazole 40mg Tablet.DR PO SCH ×2 (07:46→21:09)
[2020-10-19] MEDS: sennosides/docusate sodium tablet PO SCH ×2 (07:46→21:10)
[2020-10-19] MEDS: lactobacillus rhamnosus 10,000 MMU CELLS/CAPSULE PO SCH ×2 (07:46→21:09)
[2020-10-19] MEDS: docusate sodium 100mg/10ml UD cup PO SCH ×2 (07:47→20:00)
[2020-10-19] MEDS: propranolol 10mg tablet PO SCH ×3 (07:47→21:09)
[2020-10-19] MEDS: mineral oil/petrolatum, white cream 113gm jar TP SCH (07:47)
[2020-10-19] MEDS: QUEtiapine 25mg tablet PO SCH ×2 (07:47→21:09)
[2020-10-19] MEDS: ARGININE/GLUTAMINE/CALCIUM BMB (JUVEN 19.3GM PKT) 1 EACH POWD.PACK PO SCH ×2 (08:00→20:00)
[2020-10-19 11:00] VITALS: BP 132/77
[2020-10-19 15:00] VITALS: BP 139/81
--- NOTE | 2020-10-19 18:49 | NUR ---
Patient in room PCU 3026. I have received report from Kana GOMEZ and had the opportunity to ask questions and assume patient care.
[2020-10-19 19:45] VITALS: BP 159/69
[2020-10-19] MEDS: insulin glargine (Lantus) pen - multi-dose SQ SCH (21:00)
[2020-10-19 23:30] VITALS: BP 143/72
[2020-10-20] VITALS (11 sets, daily range): BP systolic 119–150; BP diastolic 65–98
--- NOTE | 2020-10-20 05:04 | NUR ---
Patient has been resistive to care throughout the shift. Patient refused some medications, as well as all wound care.
[2020-10-20 06:17] LABS: ALBUMIN 1.7 G/DL (3.4-5.0); ANION GAP 12 (8-16); BLOOD UREA NITROGEN 51 MG/DL (7-18); CALCIUM 7.6 MG/DL (8.5-10.1); CHLORIDE 99 MMOL/L (99-107); CREATININE 7.26 MG/DL (0.60-1.10); GLUCOSE 128 MG/DL (70-104); MAGNESIUM 1.6 MG/DL (1.5-2.4); PHOSPHORUS 4.4 MG/DL (2.3-4.5); POTASSIUM 4.2 MMOL/L (3.5-5.1); SODIUM 136 MMOL/L (135-145); TOTAL CARBON DIOXIDE 24.6 MMOL/L (24-32); eGFR 9 ML/MIN
--- NOTE | 2020-10-20 06:27 | NUR ---
Problems reprioritized. Patient report given, questions answered & plan of care reviewed with Kana GOMEZ.
[2020-10-20 06:28] LABS: BASOPHILS % (AUTO) 0.7 % (0-1); EOSINOPHILS # (AUTO) 0.1 X10'3 (0-0.9); EOSINOPHILS % (AUTO) 1.8 % (0-6); LYMPHOCYTES # (AUTO) 1.6 X10'3 (1.1-4.8); LYMPHOCYTES % (AUTO) 22.7 % (21-51); MEAN CORPUSCULAR HEMOGLOBIN 31.3 PG (27.0-31.0); MEAN CORPUSCULAR HGB CONC 33.6 g/dL (33.0-36.5); MEAN CORPUSCULAR VOLUME 93.2 FL (78-98); MONOCYTES # (AUTO) 0.8 X10'3 (0-0.9); MONOCYTES % (AUTO) 11.4 % (2-12); NEUTROPHILS # (AUTO) 4.4 X10'3 (1.8-7.7); NEUTROPHILS % (AUTO) 63.4 % (42-75); PLATELET COUNT 210 X10'3 (140-440); RED BLOOD COUNT 2.19 X10'6 (4.70-6.10); RED CELL DISTRIBUTION WIDTH 20.6 % (11.5-14.5)
[2020-10-20 06:35] LABS: HEMATOCRIT 20.4 % (42.0-52.0); HEMOGLOBIN 6.9 g/dl (14.0-17.9)
[2020-10-20] MEDS: pantoprazole 40mg Tablet.DR PO SCH ×2 (07:42→21:46)
[2020-10-20] MEDS: lactobacillus rhamnosus 10,000 MMU CELLS/CAPSULE PO SCH ×2 (07:42→21:46)
[2020-10-20] MEDS: QUEtiapine 25mg tablet PO SCH ×2 (07:42→21:47)
[2020-10-20] MEDS: sennosides/docusate sodium tablet PO SCH ×2 (07:43→21:46)
[2020-10-20] MEDS: mineral oil/petrolatum, white cream 113gm jar TP SCH (07:45)
[2020-10-20] MEDS: docusate sodium 100mg/10ml UD cup PO SCH ×2 (07:46→20:00)
--- NOTE | 2020-10-20 07:57 | NUR ---
Contacted Dr Stevie downey: Hospitalist note of possible GI bleed. Order received to hold heparin during dialysis.
[2020-10-20] MEDS: ARGININE/GLUTAMINE/CALCIUM BMB (JUVEN 19.3GM PKT) 1 EACH POWD.PACK PO SCH ×2 (08:00→20:00)
[2020-10-20] MEDS ORDERED: albumin (human) 25% 100ml IV 100 ML IV PRN (08:00)
[2020-10-20] MEDS ORDERED: EPOETIN ALFA-EPBX 20,000 UNIT/ML 1 ML MDV IV ONE (08:00)
[2020-10-20] MEDS: propranolol 10mg tablet PO SCH ×3 (08:00→21:46)
[2020-10-20] MEDS ORDERED: heparin 1,000 units/ml 10ml inj IV ONE (08:00)
[2020-10-20] MEDS ORDERED: heparin 1,000unit/ml 10ml vial 10 ML IV ONE (08:00)
[2020-10-20] MEDS ORDERED: heparin 1,000 units/ml 10ml inj HE ONE ×2 (08:00)
--- NOTE | 2020-10-20 08:54 | NUR ---
page dr keith: KING BRET 2588B: Pt labs AM Hgb 69.9, Hct 20.4. Pt began receiving dialysis this morning. Please order PRBC blood transfusion, so that can be given during dialysis this morning. - Kana GOMEZ ext [phone]
--- NOTE | 2020-10-20 18:10 | NUR ---
Patient in room PCU 3026. I have received report from PATRICIA EVERETT and had the opportunity to ask questions and assume patient care.
[2020-10-20] MEDS: insulin glargine (Lantus) pen - multi-dose SQ SCH (21:00)
[2020-10-21 02:00] VITALS: BP_SYST 133; BP_SYST 134; BP_DIAS 61; BP_DIAS 64
[2020-10-21 06:00] VITALS: BP 123/72
--- NOTE | 2020-10-21 06:06 | NUR ---
Problems reprioritized. Patient report given, questions answered & plan of care reviewed with PATRICIA EVERETT.
[2020-10-21 06:07] LABS: BASOPHILS % (AUTO) 0.6 % (0-1); EOSINOPHILS # (AUTO) 0.1 X10'3 (0-0.9); EOSINOPHILS % (AUTO) 1.9 % (0-6); HEMATOCRIT 30.3 % (42.0-52.0); HEMOGLOBIN 10.5 g/dl (14.0-17.9); LYMPHOCYTES # (AUTO) 1.9 X10'3 (1.1-4.8); LYMPHOCYTES % (AUTO) 26.9 % (21-51); MEAN CORPUSCULAR HEMOGLOBIN 31.7 PG (27.0-31.0); MEAN CORPUSCULAR HGB CONC 34.6 g/dL (33.0-36.5); MEAN CORPUSCULAR VOLUME 91.6 FL (78-98); MEAN PLATELET VOLUME 7.6 FL (7.4-10.4); MONOCYTES # (AUTO) 1.1 X10'3 (0-0.9); MONOCYTES % (AUTO) 15.4 % (2-12); NEUTROPHILS # (AUTO) 3.8 X10'3 (1.8-7.7); NEUTROPHILS % (AUTO) 55.2 % (42-75); PLATELET COUNT 211 X10'3 (140-440); RED CELL DISTRIBUTION WIDTH 17.4 % (11.5-14.5); WHITE BLOOD COUNT 6.9 X10'3 (4.5-11.0)
[2020-10-21 06:24] LABS: ALBUMIN 1.8 G/DL (3.4-5.0); ANION GAP 8 (8-16); BLOOD UREA NITROGEN 30 MG/DL (7-18); BUN/CREATININE RATIO 6.1 (5.4-32.0); CALCIUM 7.9 MG/DL (8.5-10.1); CHLORIDE 100 MMOL/L (99-107); CREATININE 4.91 MG/DL (0.60-1.10); GLUCOSE 102 MG/DL (70-104); MAGNESIUM 1.6 MG/DL (1.5-2.4); PHOSPHORUS 3.2 MG/DL (2.3-4.5); SODIUM 136 MMOL/L (135-145); TOTAL CARBON DIOXIDE 27.7 MMOL/L (24-32); eGFR 15 ML/MIN
[2020-10-21] MEDS: lactobacillus rhamnosus 10,000 MMU CELLS/CAPSULE PO SCH ×2 (07:39→20:32)
[2020-10-21] MEDS: QUEtiapine 25mg tablet PO SCH ×2 (07:39→20:33)
[2020-10-21] MEDS: propranolol 10mg tablet PO SCH ×3 (07:40→20:33)
[2020-10-21] MEDS: pantoprazole 40mg Tablet.DR PO SCH ×2 (07:40→20:32)
[2020-10-21] MEDS: ARGININE/GLUTAMINE/CALCIUM BMB (JUVEN 19.3GM PKT) 1 EACH POWD.PACK PO SCH ×2 (08:00→20:00)
[2020-10-21] MEDS: docusate sodium 100mg/10ml UD cup PO SCH ×2 (08:00→20:00)
[2020-10-21] MEDS: mineral oil/petrolatum, white cream 113gm jar TP SCH (08:00)
[2020-10-21] MEDS: sennosides/docusate sodium tablet PO SCH ×2 (08:00→20:33)
[2020-10-21 11:00] VITALS: BP 139/75
[2020-10-21 15:00] VITALS: BP 140/76
[2020-10-21 18:00] VITALS: BP 129/65
[2020-10-21] MEDS: insulin glargine (Lantus) pen - multi-dose SQ SCH (21:00)
[2020-10-22 02:00] VITALS: BP 144/78
[2020-10-22 06:00] VITALS: BP 130/69
--- NOTE | 2020-10-22 06:00 | NUR ---
Patient in room PCU 3026. I have received report from Eva GOMEZ and had the opportunity to ask questions and assume patient care.
--- NOTE | 2020-10-22 06:19 | NUR ---
Problems reprioritized. Patient report given, questions answered & plan of care reviewed with PATRICIA HERMAN.
[2020-10-22 07:19] LABS: ALBUMIN 1.8 G/DL (3.4-5.0); ANION GAP 10 (8-16); BLOOD UREA NITROGEN 49 MG/DL (7-18); BUN/CREATININE RATIO 7.2 (5.4-32.0); CALCIUM 8.1 MG/DL (8.5-10.1); CHLORIDE 100 MMOL/L (99-107); CREATININE 6.78 MG/DL (0.60-1.10); GLUCOSE 98 MG/DL (70-104); MAGNESIUM 1.7 MG/DL (1.5-2.4); SODIUM 134 MMOL/L (135-145); TOTAL CARBON DIOXIDE 23.9 MMOL/L (24-32); eGFR 10 ML/MIN
[2020-10-22 07:21] LABS: BASOPHILS % (AUTO) 0.6 % (0-1); EOSINOPHILS # (AUTO) 0.1 X10'3 (0-0.9); EOSINOPHILS % (AUTO) 1.9 % (0-6); HEMATOCRIT 30.7 % (42.0-52.0); HEMOGLOBIN 10.4 g/dl (14.0-17.9); LYMPHOCYTES % (AUTO) 28.7 % (21-51); MEAN CORPUSCULAR HEMOGLOBIN 31.2 PG (27.0-31.0); MEAN CORPUSCULAR HGB CONC 33.9 g/dL (33.0-36.5); MEAN CORPUSCULAR VOLUME 92.2 FL (78-98); MONOCYTES # (AUTO) 1.1 X10'3 (0-0.9); MONOCYTES % (AUTO) 15.4 % (2-12); NEUTROPHILS # (AUTO) 3.7 X10'3 (1.8-7.7); NEUTROPHILS % (AUTO) 53.4 % (42-75); PLATELET COUNT 229 X10'3 (140-440); RED BLOOD COUNT 3.33 X10'6 (4.70-6.10); RED CELL DISTRIBUTION WIDTH 17.2 % (11.5-14.5); WHITE BLOOD COUNT 6.9 X10'3 (4.5-11.0)
[2020-10-22 07:23] LABS: PHOSPHORUS 3.9 MG/DL (2.3-4.5); POTASSIUM 4.6 MMOL/L (3.5-5.1)
[2020-10-22] MEDS: sennosides/docusate sodium tablet PO SCH ×2 (08:00→19:12)
[2020-10-22] MEDS: propranolol 10mg tablet PO SCH ×3 (08:00→21:07)
[2020-10-22] MEDS: docusate sodium 100mg/10ml UD cup PO SCH ×2 (08:00→19:13)
[2020-10-22] MEDS: ARGININE/GLUTAMINE/CALCIUM BMB (JUVEN 19.3GM PKT) 1 EACH POWD.PACK PO SCH ×2 (08:00→19:13)
[2020-10-22] MEDS ORDERED: heparin 1,000unit/ml 10ml vial 10 ML IV ONE (08:00)
[2020-10-22] MEDS: mineral oil/petrolatum, white cream 113gm jar TP SCH (08:00)
[2020-10-22] MEDS ORDERED: heparin 1,000 units/ml 10ml inj IV ONE (08:00)
[2020-10-22] MEDS ORDERED: albumin (human) 25% 100ml IV 100 ML IV PRN (08:00)
[2020-10-22] MEDS ORDERED: heparin 1,000 units/ml 10ml inj HE ONE ×2 (08:00)
[2020-10-22] MEDS: lactobacillus rhamnosus 10,000 MMU CELLS/CAPSULE PO SCH ×2 (08:25→19:12)
[2020-10-22] MEDS: QUEtiapine 25mg tablet PO SCH ×2 (08:26→19:12)
[2020-10-22] MEDS: pantoprazole 40mg Tablet.DR PO SCH ×2 (08:26→19:12)
[2020-10-22 09:21] LABS: TOTAL CELLS COUNTED 100
[2020-10-22 09:22] LABS: ANISOCYTOSIS 1+; PLATELET ESTIMATE NORMAL; POLYCHROMASIA FEW
[2020-10-22 09:23] LABS: ELLIPTOCYTES FEW; STOMATOCYTES 1+; TEAR DROP CELLS 1+
[2020-10-22 11:00] VITALS: BP 134/84
[2020-10-22 15:00] VITALS: BP 100/70
--- NOTE | 2020-10-22 18:00 | NUR ---
Patient in room PCU 3026. I have received report from PATRICIA ALARCON and had the opportunity to ask questions and assume patient care.
--- NOTE | 2020-10-22 18:00 | NUR ---
Problems reprioritized. Patient report given, questions answered & plan of care reviewed with Eva GOMEZ.
[2020-10-22] MEDS: insulin glargine (Lantus) pen - multi-dose SQ SCH (21:00)
[2020-10-22 22:00] VITALS: BP 114/69
[2020-10-23] VITALS (7 sets, daily range): BP systolic 105–128; BP diastolic 58–78
--- NOTE | 2020-10-23 06:21 | NUR ---
Problems reprioritized. Patient report given, questions answered & plan of care reviewed with PATRICIA ALARCON..
[2020-10-23 06:41] LABS: BASOPHILS % (AUTO) 0.7 % (0-1); EOSINOPHILS # (AUTO) 0.1 X10'3 (0-0.9); EOSINOPHILS % (AUTO) 1.8 % (0-6); HEMATOCRIT 32.3 % (42.0-52.0); HEMOGLOBIN 10.8 g/dl (14.0-17.9); MEAN CORPUSCULAR HEMOGLOBIN 30.6 PG (27.0-31.0); MEAN CORPUSCULAR HGB CONC 33.5 g/dL (33.0-36.5); MEAN CORPUSCULAR VOLUME 91.5 FL (78-98); MEAN PLATELET VOLUME 7.3 FL (7.4-10.4); MONOCYTES % (AUTO) 14.9 % (2-12); NEUTROPHILS # (AUTO) 3.6 X10'3 (1.8-7.7); NEUTROPHILS % (AUTO) 52.6 % (42-75); PLATELET COUNT 243 X10'3 (140-440); RED BLOOD COUNT 3.53 X10'6 (4.70-6.10); RED CELL DISTRIBUTION WIDTH 17.5 % (11.5-14.5); WHITE BLOOD COUNT 6.8 X10'3 (4.5-11.0)
[2020-10-23 07:00] LABS: ANION GAP 10 (8-16); BLOOD UREA NITROGEN 35 MG/DL (7-18); BUN/CREATININE RATIO 6.6 (5.4-32.0); CALCIUM 8.3 MG/DL (8.5-10.1); CHLORIDE 100 MMOL/L (99-107); CREATININE 5.28 MG/DL (0.60-1.10); GLUCOSE 120 MG/DL (70-104); MAGNESIUM 1.6 MG/DL (1.5-2.4); PHOSPHORUS 3.7 MG/DL (2.3-4.5); POTASSIUM 4.1 MMOL/L (3.5-5.1); SODIUM 136 MMOL/L (135-145); TOTAL CARBON DIOXIDE 26.2 MMOL/L (24-32); TRIGLYCERIDES 119 MG/DL (20-135); eGFR 14 ML/MIN
[2020-10-23] MEDS: pantoprazole 40mg Tablet.DR PO SCH ×2 (07:23→19:06)
[2020-10-23] MEDS: QUEtiapine 25mg tablet PO SCH ×2 (07:23→19:06)
[2020-10-23] MEDS: lactobacillus rhamnosus 10,000 MMU CELLS/CAPSULE PO SCH ×2 (07:23→19:06)
[2020-10-23] MEDS: propranolol 10mg tablet PO SCH ×3 (07:24→20:23)
[2020-10-23] MEDS: sennosides/docusate sodium tablet PO SCH ×2 (07:30→19:07)
[2020-10-23] MEDS: docusate sodium 100mg/10ml UD cup PO SCH ×2 (07:30→19:08)
[2020-10-23] MEDS: ARGININE/GLUTAMINE/CALCIUM BMB (JUVEN 19.3GM PKT) 1 EACH POWD.PACK PO SCH ×2 (08:00→19:08)
[2020-10-23] MEDS: mineral oil/petrolatum, white cream 113gm jar TP SCH (09:00)
--- NOTE | 2020-10-23 14:54 | NUR ---
F/u 10/23: Pt PO consistently 75-100% avg renal/carb controlled diet w/ Jaydon smoothie BID meeting needs. LBM 10/23. No nutrition intervention at this time. Will continue to monitor. Recommendations: 1) Continue renal, CHO controlled diet 2) Jaydon smoothie BIDBD for wound healing needs 3) Routine bowel care 4) wts w/ HD Addendum: 10/23/20 at [address] Amended: Links added.
--- NOTE | 2020-10-23 18:00 | NUR ---
Problems reprioritized. Patient report given, questions answered & plan of care reviewed with Devika GOMEZ.
--- NOTE | 2020-10-23 18:10 | NUR ---
Patient in room PCU 3026. I have received report from PATRICIA Cagle and had the opportunity to ask questions and assume patient care.
[2020-10-23] MEDS: insulin glargine (Lantus) pen - multi-dose SQ SCH (20:48)
[2020-10-24 02:00] VITALS: BP 130/73
[2020-10-24 06:00] VITALS: BP 119/63
--- NOTE | 2020-10-24 06:24 | NUR ---
Problems reprioritized. Patient report given, questions answered & plan of care reviewed with PATRICIA Duran.
[2020-10-24 06:57] LABS: ALBUMIN 1.9 G/DL (3.4-5.0); ANION GAP 11 (8-16); BLOOD UREA NITROGEN 47 MG/DL (7-18); BUN/CREATININE RATIO 6.6 (5.4-32.0); CALCIUM 8.2 MG/DL (8.5-10.1); CHLORIDE 99 MMOL/L (99-107); CREATININE 7.07 MG/DL (0.60-1.10); GLUCOSE 99 MG/DL (70-104); MAGNESIUM 1.7 MG/DL (1.5-2.4); PHOSPHORUS 4.8 MG/DL (2.3-4.5); POTASSIUM 4.2 MMOL/L (3.5-5.1); SODIUM 135 MMOL/L (135-145); TOTAL CARBON DIOXIDE 25.4 MMOL/L (24-32); eGFR 10 ML/MIN
--- NOTE | 2020-10-24 07:01 | NUR ---
Patient in room PCU 3026. I have received report from Devika Farias and had the opportunity to ask questions and assume patient care.
[2020-10-24 07:16] LABS: BASOPHILS % (AUTO) 0.5 % (0-1); EOSINOPHILS # (AUTO) 0.1 X10'3 (0-0.9); EOSINOPHILS % (AUTO) 1.5 % (0-6); HEMATOCRIT 30.3 % (42.0-52.0); HEMOGLOBIN 10.6 g/dl (14.0-17.9); LYMPHOCYTES # (AUTO) 2.3 X10'3 (1.1-4.8); LYMPHOCYTES % (AUTO) 35.8 % (21-51); MEAN CORPUSCULAR HEMOGLOBIN 32.1 PG (27.0-31.0); MEAN CORPUSCULAR VOLUME 91.7 FL (78-98); MEAN PLATELET VOLUME 7.3 FL (7.4-10.4); MONOCYTES # (AUTO) 1.1 X10'3 (0-0.9); MONOCYTES % (AUTO) 16.6 % (2-12); NEUTROPHILS # (AUTO) 2.9 X10'3 (1.8-7.7); NEUTROPHILS % (AUTO) 45.6 % (42-75); PLATELET COUNT 270 X10'3 (140-440); RED CELL DISTRIBUTION WIDTH 17.8 % (11.5-14.5); WHITE BLOOD COUNT 6.5 X10'3 (4.5-11.0)
[2020-10-24] MEDS: pantoprazole 40mg Tablet.DR PO SCH ×2 (07:51→20:58)
[2020-10-24] MEDS: propranolol 10mg tablet PO SCH ×3 (07:51→20:57)
[2020-10-24] MEDS: lactobacillus rhamnosus 10,000 MMU CELLS/CAPSULE PO SCH ×2 (07:51→20:58)
[2020-10-24] MEDS: QUEtiapine 25mg tablet PO SCH ×2 (07:51→20:58)
[2020-10-24] MEDS: docusate sodium 100mg/10ml UD cup PO SCH ×2 (07:52→20:00)
[2020-10-24] MEDS: mineral oil/petrolatum, white cream 113gm jar TP SCH (07:52)
[2020-10-24] MEDS: ARGININE/GLUTAMINE/CALCIUM BMB (JUVEN 19.3GM PKT) 1 EACH POWD.PACK PO SCH ×2 (07:52→20:00)
[2020-10-24] MEDS: sennosides/docusate sodium tablet PO SCH ×2 (07:52→20:00)
[2020-10-24 09:58] LABS: ANISOCYTOSIS 1+; PLATELET ESTIMATE NORMAL; TOTAL CELLS COUNTED 200
[2020-10-24 10:00] LABS: POLYCHROMASIA FEW; SCHISTOCYTES FEW
[2020-10-24 11:00] VITALS: BP 123/71
[2020-10-24 15:00] VITALS: BP 154/88
[2020-10-24 18:00] VITALS: BP 146/88
--- NOTE | 2020-10-24 18:18 | NUR ---
Patient in room PCU 3026. I have received report from Renee GOMEZ and had the opportunity to ask questions and assume patient care.
--- NOTE | 2020-10-24 18:30 | NUR ---
Problems reprioritized. Patient report given, questions answered & plan of care reviewed with nasima Farias.
--- NOTE | 2020-10-24 18:56 | NUR ---
Patient in room PCU 3026. I have received report from Renee GOMEZ and had the opportunity to ask questions and assume patient care.
[2020-10-24] MEDS: insulin glargine (Lantus) pen - multi-dose SQ SCH (20:59)
[2020-10-24 22:38] VITALS: BP 137/77
[2020-10-25 06:00] VITALS: BP 115/67
--- NOTE | 2020-10-25 06:10 | NUR ---
Problems reprioritized. Patient report given, questions answered & plan of care reviewed with Renee GOMEZ.
[2020-10-25 06:18] LABS: BASOPHILS % (AUTO) 0.5 % (0-1); EOSINOPHILS # (AUTO) 0.1 X10'3 (0-0.9); HEMATOCRIT 29.6 % (42.0-52.0); HEMOGLOBIN 9.9 g/dl (14.0-17.9); LYMPHOCYTES # (AUTO) 2.3 X10'3 (1.1-4.8); LYMPHOCYTES % (AUTO) 32.4 % (21-51); MEAN CORPUSCULAR HEMOGLOBIN 31.1 PG (27.0-31.0); MEAN CORPUSCULAR HGB CONC 33.5 g/dL (33.0-36.5); MEAN CORPUSCULAR VOLUME 92.6 FL (78-98); MEAN PLATELET VOLUME 7.4 FL (7.4-10.4); MONOCYTES # (AUTO) 1.1 X10'3 (0-0.9); NEUTROPHILS # (AUTO) 3.5 X10'3 (1.8-7.7); NEUTROPHILS % (AUTO) 49.1 % (42-75); PLATELET COUNT 299 X10'3 (140-440); RED BLOOD COUNT 3.19 X10'6 (4.70-6.10); RED CELL DISTRIBUTION WIDTH 17.4 % (11.5-14.5); WHITE BLOOD COUNT 7.1 X10'3 (4.5-11.0)
--- NOTE | 2020-10-25 06:40 | NUR ---
Patient in room PCU 3026. I have received report from Shannon GOMEZ and had the opportunity to ask questions and assume patient care.
[2020-10-25 06:51] LABS: ANION GAP 15 (8-16); BLOOD UREA NITROGEN 63 MG/DL (7-18); BUN/CREATININE RATIO 7.4 (5.4-32.0); CALCIUM 7.9 MG/DL (8.5-10.1); CHLORIDE 97 MMOL/L (99-107); CREATININE 8.56 MG/DL (0.60-1.10); GLUCOSE 109 MG/DL (70-104); MAGNESIUM 1.7 MG/DL (1.5-2.4); PHOSPHORUS 5.1 MG/DL (2.3-4.5); POTASSIUM 4.3 MMOL/L (3.5-5.1); SODIUM 135 MMOL/L (135-145); TOTAL CARBON DIOXIDE 23.1 MMOL/L (24-32); eGFR 8 ML/MIN
[2020-10-25] MEDS: propranolol 10mg tablet PO SCH ×3 (07:38→21:00)
[2020-10-25] MEDS: pantoprazole 40mg Tablet.DR PO SCH ×2 (07:38→20:01)
[2020-10-25] MEDS: lactobacillus rhamnosus 10,000 MMU CELLS/CAPSULE PO SCH ×2 (07:38→20:01)
[2020-10-25] MEDS: QUEtiapine 25mg tablet PO SCH ×2 (07:38→20:01)
[2020-10-25] MEDS: mineral oil/petrolatum, white cream 113gm jar TP SCH (07:39)
[2020-10-25] MEDS: sennosides/docusate sodium tablet PO SCH ×2 (07:39→20:00)
[2020-10-25] MEDS: docusate sodium 100mg/10ml UD cup PO SCH ×2 (07:39→20:00)
[2020-10-25] MEDS ORDERED: EPOETIN ALFA-EPBX 20,000 UNIT/ML 1 ML MDV IV ONE ×2 (08:00→18:50)
[2020-10-25] MEDS ORDERED: heparin 1,000unit/ml 10ml vial 10 ML IV ONE (08:00)
[2020-10-25] MEDS ORDERED: albumin (human) 25% 100ml IV 100 ML IV PRN (08:00)
[2020-10-25] MEDS ORDERED: heparin 1,000 units/ml 10ml inj IV ONE ×2 (08:00→18:50)
[2020-10-25] MEDS ORDERED: heparin 1,000 units/ml 10ml inj HE ONE ×4 (08:00→18:50)
[2020-10-25] MEDS: ARGININE/GLUTAMINE/CALCIUM BMB (JUVEN 19.3GM PKT) 1 EACH POWD.PACK PO SCH ×2 (08:00→20:00)
--- NOTE | 2020-10-25 09:07 | NUR ---
Patient in room PCU 3026. I have received report from Shannon GOMEZ and had the opportunity to ask questions and assume patient care.
--- NOTE | 2020-10-25 09:12 | NUR ---
MD. Doss PAGER ID: [phone] MESSAGE: Isael RIDLEYeRilly Ext [phone]. 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 Sinus rhythm rare PAC. Please advise.
--- NOTE | 2020-10-25 14:01 | NUR ---
Problems reprioritized. Patient report given, questions answered & plan of care reviewed with Kassy GOMEZ.
--- NOTE | 2020-10-25 17:12 | NUR ---
ORIENTEE documentation: I have reviewed and agree with all interventions, assessments performed and documented by KARYNA RN. ORIENTEE Medication Administration: For this medication-pass time frame, all medication were reviewed, dispensed, administered and documented per hospital policy by KARYNALALA GOMEZ. [].
--- NOTE | 2020-10-25 18:21 | NUR ---
Problems reprioritized. Patient report given, questions answered & plan of care reviewed with Fitz GOMEZ.
--- NOTE | 2020-10-25 18:58 | NUR ---
LATE ENTRY Patient received heparin as ordered on mars. Please see hemodialysis flow sheet.
[2020-10-25 19:00] VITALS: BP 124/73
[2020-10-25] MEDS: insulin glargine (Lantus) pen - multi-dose SQ SCH (21:00)
[2020-10-26] VITALS: BP 105/54
[2020-10-26 06:43] LABS: BASOPHILS % (AUTO) 0.6 % (0-1); EOSINOPHILS # (AUTO) 0.1 X10'3 (0-0.9); EOSINOPHILS % (AUTO) 1.4 % (0-6); HEMATOCRIT 32.7 % (42.0-52.0); HEMOGLOBIN 10.8 g/dl (14.0-17.9); LYMPHOCYTES # (AUTO) 2.3 X10'3 (1.1-4.8); MEAN CORPUSCULAR HEMOGLOBIN 30.2 PG (27.0-31.0); MEAN CORPUSCULAR HGB CONC 33.1 g/dL (33.0-36.5); MEAN CORPUSCULAR VOLUME 91.3 FL (78-98); MEAN PLATELET VOLUME 7.5 FL (7.4-10.4); MONOCYTES # (AUTO) 1.3 X10'3 (0-0.9); MONOCYTES % (AUTO) 18.8 % (2-12); NEUTROPHILS # (AUTO) 3.1 X10'3 (1.8-7.7); NEUTROPHILS % (AUTO) 45.2 % (42-75); PLATELET COUNT 287 X10'3 (140-440); RED BLOOD COUNT 3.58 X10'6 (4.70-6.10); WHITE BLOOD COUNT 6.8 X10'3 (4.5-11.0)
--- NOTE | 2020-10-26 06:53 | NUR ---
Patient in room TAMAR 350. I have received report from Fitz GOMEZ and had the opportunity to ask questions and assume patient care.
--- NOTE | 2020-10-26 06:58 | NUR ---
Problems reprioritized. Patient report given, questions answered & plan of care reviewed with YINKA. Addendum: 10/26/20 at 0659 by Terrence Mota RN Amended: Links added.
[2020-10-26 07:00] VITALS: BP 111/65
[2020-10-26 07:09] LABS: ANION GAP 11 (8-16); BLOOD UREA NITROGEN 39 MG/DL (7-18); BUN/CREATININE RATIO 6.7 (5.4-32.0); CALCIUM 7.9 MG/DL (8.5-10.1); CHLORIDE 97 MMOL/L (99-107); CREATININE 5.81 MG/DL (0.60-1.10); GLUCOSE 106 MG/DL (70-104); MAGNESIUM 1.6 MG/DL (1.5-2.4); PHOSPHORUS 3.8 MG/DL (2.3-4.5); POTASSIUM 3.8 MMOL/L (3.5-5.1); SODIUM 134 MMOL/L (135-145); TOTAL CARBON DIOXIDE 26.1 MMOL/L (24-32); eGFR 12 ML/MIN
[2020-10-26] MEDS: sennosides/docusate sodium tablet PO SCH ×2 (08:00→20:00)
[2020-10-26] MEDS: docusate sodium 100mg/10ml UD cup PO SCH ×2 (08:00→20:00)
[2020-10-26] MEDS: propranolol 10mg tablet PO SCH ×3 (08:33→22:05)
[2020-10-26] MEDS: lactobacillus rhamnosus 10,000 MMU CELLS/CAPSULE PO SCH ×2 (08:33→20:05)
[2020-10-26] MEDS: pantoprazole 40mg Tablet.DR PO SCH ×2 (08:33→20:04)
[2020-10-26] MEDS: QUEtiapine 25mg tablet PO SCH ×2 (08:34→20:04)
[2020-10-26] MEDS: ARGININE/GLUTAMINE/CALCIUM BMB (JUVEN 19.3GM PKT) 1 EACH POWD.PACK PO SCH ×2 (08:35→20:00)
[2020-10-26] MEDS: mineral oil/petrolatum, white cream 113gm jar TP SCH (08:37)
[2020-10-26 12:00] VITALS: BP 128/67
--- NOTE | 2020-10-26 18:41 | NUR ---
Problems reprioritized. Patient report given, questions answered & plan of care reviewed with Arminda GOMEZ.
[2020-10-26 19:57] VITALS: BP 119/66
[2020-10-26] MEDS: insulin glargine (Lantus) pen - multi-dose SQ SCH (21:00)
[2020-10-26 23:09] VITALS: BP 104/59
[2020-10-27 06:08] LABS: BASOPHILS % (AUTO) 0.5 % (0-1); EOSINOPHILS # (AUTO) 0.1 X10'3 (0-0.9); EOSINOPHILS % (AUTO) 1.1 % (0-6); HEMATOCRIT 31.2 % (42.0-52.0); HEMOGLOBIN 10.5 g/dl (14.0-17.9); LYMPHOCYTES # (AUTO) 2.4 X10'3 (1.1-4.8); LYMPHOCYTES % (AUTO) 34.2 % (21-51); MEAN CORPUSCULAR HGB CONC 33.8 g/dL (33.0-36.5); MEAN CORPUSCULAR VOLUME 91.7 FL (78-98); MEAN PLATELET VOLUME 7.4 FL (7.4-10.4); MONOCYTES # (AUTO) 1.2 X10'3 (0-0.9); MONOCYTES % (AUTO) 16.5 % (2-12); NEUTROPHILS # (AUTO) 3.4 X10'3 (1.8-7.7); NEUTROPHILS % (AUTO) 47.7 % (42-75); PLATELET COUNT 301 X10'3 (140-440); RED CELL DISTRIBUTION WIDTH 18.3 % (11.5-14.5); WHITE BLOOD COUNT 7.1 X10'3 (4.5-11.0)
--- NOTE | 2020-10-27 06:10 | NUR ---
Patient in room TAMAR 350. I have received report from Arminda GOMEZ and had the opportunity to ask questions and assume patient care.
--- NOTE | 2020-10-27 06:37 | NUR ---
Patient in room TAMAR 350. I have received report from Pat RN and had the opportunity to ask questions and assume patient care.
[2020-10-27 07:00] VITALS: BP 129/78
[2020-10-27] MEDS ORDERED: heparin 1,000 units/ml 10ml inj HE ONE ×2 (08:00)
[2020-10-27] MEDS ORDERED: albumin (human) 25% 100ml IV 100 ML IV PRN (08:00)
[2020-10-27] MEDS ORDERED: heparin 1,000unit/ml 10ml vial 10 ML IV ONE (08:00)
[2020-10-27] MEDS: docusate sodium 100mg/10ml UD cup PO SCH ×2 (08:00→20:00)
[2020-10-27] MEDS ORDERED: heparin 1,000 units/ml 10ml inj IV ONE (08:00)
[2020-10-27] MEDS: sennosides/docusate sodium tablet PO SCH ×2 (08:00→20:00)
[2020-10-27] MEDS: lactobacillus rhamnosus 10,000 MMU CELLS/CAPSULE PO SCH ×2 (08:11→21:37)
[2020-10-27] MEDS: pantoprazole 40mg Tablet.DR PO SCH ×2 (08:11→21:37)
[2020-10-27] MEDS: QUEtiapine 25mg tablet PO SCH ×2 (08:12→21:37)
[2020-10-27] MEDS: propranolol 10mg tablet PO SCH ×3 (08:12→21:38)
[2020-10-27] MEDS: ARGININE/GLUTAMINE/CALCIUM BMB (JUVEN 19.3GM PKT) 1 EACH POWD.PACK PO SCH ×2 (08:13→20:00)
[2020-10-27] MEDS: mineral oil/petrolatum, white cream 113gm jar TP SCH (08:15)
--- NOTE | 2020-10-27 09:03 | NUR ---
Reassessment: Pt continues eating well with mostly 100% PO intake. Pt working with special diet cook for food preferences and receiving Jaydon smoothie BID. LBM 10/26. No further nutrition intervention implemented at this time. Will continue to follow. Recommendations: 1) Continue renal, CHO controlled diet 2) Jaydon smoothie BIDBD for wound healing needs 3) Routine bowel care 4) Scaled wts with HD Addendum: 10/27/20 at [address] Amended: Links added.
[2020-10-27 11:00] VITALS: BP 122/66
[2020-10-27 13:13] LABS: HBSAG SCREEN Negative (Negative)
[2020-10-27 18:00] VITALS: BP 108/62
--- NOTE | 2020-10-27 18:30 | NUR ---
Patient in room TAMAR 350. I have received report from PATRICIA Sanchez and had the opportunity to ask questions and assume patient care.
--- NOTE | 2020-10-27 18:36 | NUR ---
Problems reprioritized. Patient report given, questions answered & plan of care reviewed with Rupa GOMEZ.
--- NOTE | 2020-10-27 18:50 | NUR ---
Patient in room TAMAR 345. I have received report from PATRICIA Sanchez and had the opportunity to ask questions and assume patient care.
[2020-10-27] MEDS: insulin glargine (Lantus) pen - multi-dose SQ SCH (21:00)
[2020-10-28] VITALS: BP 110/72
--- NOTE | 2020-10-28 06:47 | NUR ---
Problems reprioritized. Patient report given, questions answered & plan of care reviewed with PATRICIA Tai.
--- NOTE | 2020-10-28 06:47 | NUR ---
Problems reprioritized. Patient report given, questions answered & plan of care reviewed with PATRICIA Tai.
--- NOTE | 2020-10-28 06:48 | NUR ---
Patient in room TAMAR 350. I have received report from Rupa GOMEZ and Kaylah RN and had the opportunity to ask questions and assume patient care.
[2020-10-28 07:00] VITALS: BP 117/65
[2020-10-28 07:04] LABS: BASOPHILS % (AUTO) 0.5 % (0-1); EOSINOPHILS # (AUTO) 0.1 X10'3 (0-0.9); HEMATOCRIT 30.9 % (42.0-52.0); HEMOGLOBIN 10.7 g/dl (14.0-17.9); LYMPHOCYTES # (AUTO) 2.5 X10'3 (1.1-4.8); LYMPHOCYTES % (AUTO) 35.3 % (21-51); MEAN CORPUSCULAR HEMOGLOBIN 31.9 PG (27.0-31.0); MEAN CORPUSCULAR HGB CONC 34.6 g/dL (33.0-36.5); MEAN CORPUSCULAR VOLUME 92.2 FL (78-98); MEAN PLATELET VOLUME 7.2 FL (7.4-10.4); MONOCYTES # (AUTO) 1.3 X10'3 (0-0.9); MONOCYTES % (AUTO) 17.7 % (2-12); NEUTROPHILS # (AUTO) 3.3 X10'3 (1.8-7.7); NEUTROPHILS % (AUTO) 45.5 % (42-75); PLATELET COUNT 324 X10'3 (140-440); RED BLOOD COUNT 3.35 X10'6 (4.70-6.10); RED CELL DISTRIBUTION WIDTH 17.8 % (11.5-14.5); WHITE BLOOD COUNT 7.2 X10'3 (4.5-11.0)
[2020-10-28] MEDS: ARGININE/GLUTAMINE/CALCIUM BMB (JUVEN 19.3GM PKT) 1 EACH POWD.PACK PO SCH ×2 (08:00→20:00)
[2020-10-28] MEDS: mineral oil/petrolatum, white cream 113gm jar TP SCH (08:00)
[2020-10-28] MEDS: sennosides/docusate sodium tablet PO SCH ×2 (08:00→20:00)
[2020-10-28] MEDS: docusate sodium 100mg/10ml UD cup PO SCH ×2 (08:00→20:00)
[2020-10-28] MEDS: lactobacillus rhamnosus 10,000 MMU CELLS/CAPSULE PO SCH ×2 (09:19→20:50)
[2020-10-28] MEDS: QUEtiapine 25mg tablet PO SCH ×2 (09:19→20:50)
[2020-10-28] MEDS: pantoprazole 40mg Tablet.DR PO SCH ×2 (09:20→20:50)
[2020-10-28] MEDS: propranolol 10mg tablet PO SCH ×3 (09:20→20:50)
[2020-10-28 11:00] VITALS: BP 111/56
[2020-10-28 18:00] VITALS: BP 114/59
--- NOTE | 2020-10-28 18:45 | NUR ---
Patient in room TAMAR 350. I have received report from LYNN GOMEZ and had the opportunity to ask questions and assume patient care.
--- NOTE | 2020-10-28 18:52 | NUR ---
Problems reprioritized. Patient report given, questions answered & plan of care reviewed with Prudence RN.
[2020-10-28] MEDS: insulin glargine (Lantus) pen - multi-dose SQ SCH (20:55)
[2020-10-29 06:00] LABS: BASOPHILS % (AUTO) 0.5 % (0-1); EOSINOPHILS # (AUTO) 0.1 X10'3 (0-0.9); EOSINOPHILS % (AUTO) 0.7 % (0-6); LYMPHOCYTES # (AUTO) 2.4 X10'3 (1.1-4.8); MEAN CORPUSCULAR HEMOGLOBIN 31.9 PG (27.0-31.0); MEAN CORPUSCULAR HGB CONC 34.5 g/dL (33.0-36.5); MEAN CORPUSCULAR VOLUME 92.5 FL (78-98); MONOCYTES # (AUTO) 1.4 X10'3 (0-0.9); NEUTROPHILS # (AUTO) 4.4 X10'3 (1.8-7.7); NEUTROPHILS % (AUTO) 52.8 % (42-75); PLATELET COUNT 346 X10'3 (140-440); RED BLOOD COUNT 3.13 X10'6 (4.70-6.10); RED CELL DISTRIBUTION WIDTH 17.9 % (11.5-14.5); WHITE BLOOD COUNT 8.3 X10'3 (4.5-11.0)
--- NOTE | 2020-10-29 06:28 | NUR ---
Problems reprioritized. Patient report given, questions answered & plan of care reviewed with BRIANNA GOMEZ.
--- NOTE | 2020-10-29 07:02 | NUR ---
Patient in room TAMAR 350. I have received report from Emma GOMEZ and had the opportunity to ask questions and assume patient care.
[2020-10-29] MEDS: docusate sodium 100mg/10ml UD cup PO SCH ×2 (07:23→20:00)
[2020-10-29] MEDS: sennosides/docusate sodium tablet PO SCH ×2 (07:23→20:00)
[2020-10-29] MEDS: lactobacillus rhamnosus 10,000 MMU CELLS/CAPSULE PO SCH ×2 (07:24→20:40)
[2020-10-29] MEDS: propranolol 10mg tablet PO SCH ×3 (07:24→20:36)
[2020-10-29] MEDS: QUEtiapine 25mg tablet PO SCH ×2 (07:24→20:40)
[2020-10-29] MEDS: pantoprazole 40mg Tablet.DR PO SCH ×2 (07:24→20:40)
[2020-10-29] MEDS: mineral oil/petrolatum, white cream 113gm jar TP SCH (07:25)
[2020-10-29 08:00] VITALS: BP 109/65
[2020-10-29] MEDS ORDERED: EPOETIN ALFA-EPBX 20,000 UNIT/ML 1 ML MDV IV ONE (08:00)
[2020-10-29] MEDS ORDERED: heparin 1,000 units/ml 10ml inj HE ONE ×2 (08:00)
[2020-10-29] MEDS ORDERED: normal saline 1000ml 250 ML IV PRN (08:00)
[2020-10-29] MEDS ORDERED: heparin 1,000unit/ml 10ml vial 10 ML IV ONE (08:00)
[2020-10-29] MEDS: ARGININE/GLUTAMINE/CALCIUM BMB (JUVEN 19.3GM PKT) 1 EACH POWD.PACK PO SCH ×2 (08:00→20:00)
[2020-10-29 11:00] VITALS: BP 116/74
[2020-10-29 18:00] VITALS: BP 95/43
--- NOTE | 2020-10-29 18:14 | NUR ---
Problems reprioritized. Patient report given, questions answered & plan of care reviewed with Prudence RN.
--- NOTE | 2020-10-29 18:49 | NUR ---
Patient in room TAMAR 350. I have received report from BRIANNA GOMEZ and had the opportunity to ask questions and assume patient care.
--- NOTE | 2020-10-29 20:43 | NUR ---
PATIENT REFUSED COLACE AND SENNA
[2020-10-30 00:36] VITALS: BP 113/66
[2020-10-30 06:14] LABS: BASOPHILS # (AUTO) 0.1 X10'3 (0-0.2); BASOPHILS % (AUTO) 0.9 % (0-1); EOSINOPHILS # (AUTO) 0.1 X10'3 (0-0.9); EOSINOPHILS % (AUTO) 0.8 % (0-6); HEMATOCRIT 29.8 % (42.0-52.0); HEMOGLOBIN 10.3 g/dl (14.0-17.9); LYMPHOCYTES # (AUTO) 2.3 X10'3 (1.1-4.8); LYMPHOCYTES % (AUTO) 31.6 % (21-51); MEAN CORPUSCULAR HEMOGLOBIN 31.6 PG (27.0-31.0); MEAN CORPUSCULAR HGB CONC 34.4 g/dL (33.0-36.5); MEAN CORPUSCULAR VOLUME 92.1 FL (78-98); MEAN PLATELET VOLUME 6.9 FL (7.4-10.4); MONOCYTES # (AUTO) 1.5 X10'3 (0-0.9); NEUTROPHILS # (AUTO) 3.5 X10'3 (1.8-7.7); NEUTROPHILS % (AUTO) 46.7 % (42-75); PLATELET COUNT 347 X10'3 (140-440); RED BLOOD COUNT 3.24 X10'6 (4.70-6.10); WHITE BLOOD COUNT 7.4 X10'3 (4.5-11.0)
--- NOTE | 2020-10-30 06:28 | NUR ---
Problems reprioritized. Patient report given, questions answered & plan of care reviewed with ALEX RN.
--- NOTE | 2020-10-30 06:36 | NUR ---
Patient in room TAMAR 340. I have received report from Emma GOMEZ and had the opportunity to ask questions and assume patient care.
[2020-10-30] MEDS: docusate sodium 100mg/10ml UD cup PO SCH ×2 (08:00→20:00)
[2020-10-30] MEDS: sennosides/docusate sodium tablet PO SCH ×2 (08:00→20:00)
[2020-10-30] MEDS: ARGININE/GLUTAMINE/CALCIUM BMB (JUVEN 19.3GM PKT) 1 EACH POWD.PACK PO SCH ×2 (08:00→20:00)
[2020-10-30] MEDS: QUEtiapine 25mg tablet PO SCH ×2 (09:16→22:11)
[2020-10-30] MEDS: lactobacillus rhamnosus 10,000 MMU CELLS/CAPSULE PO SCH ×2 (09:16→22:10)
[2020-10-30] MEDS: pantoprazole 40mg Tablet.DR PO SCH ×2 (09:16→22:10)
[2020-10-30] MEDS: propranolol 10mg tablet PO SCH ×3 (09:17→22:11)
[2020-10-30] MEDS: mineral oil/petrolatum, white cream 113gm jar TP SCH (09:19)
[2020-10-30 09:27] VITALS: BP 126/77
[2020-10-30 11:00] VITALS: BP 125/65
--- NOTE | 2020-10-30 18:26 | NUR ---
Problems reprioritized. Patient report given, questions answered & plan of care reviewed with Kaylah GOMEZ.
--- NOTE | 2020-10-30 18:57 | NUR ---
Patient in room TAMAR 350. I have received report from PATRICIA Howard and had the opportunity to ask questions and assume patient care.
[2020-10-30 19:00] VITALS: BP 133/75
[2020-10-31 00:57] VITALS: BP 105/65
--- NOTE | 2020-10-31 06:12 | NUR ---
Problems reprioritized. Patient report given, questions answered & plan of care reviewed with PATRICIA Howard.
[2020-10-31 06:27] LABS: BASOPHILS % (AUTO) 0.5 % (0-1); EOSINOPHILS # (AUTO) 0.1 X10'3 (0-0.9); EOSINOPHILS % (AUTO) 0.9 % (0-6); HEMATOCRIT 30.3 % (42.0-52.0); HEMOGLOBIN 10.2 g/dl (14.0-17.9); LYMPHOCYTES # (AUTO) 2.1 X10'3 (1.1-4.8); LYMPHOCYTES % (AUTO) 28.8 % (21-51); MEAN CORPUSCULAR HEMOGLOBIN 31.1 PG (27.0-31.0); MEAN CORPUSCULAR HGB CONC 33.7 g/dL (33.0-36.5); MEAN CORPUSCULAR VOLUME 92.4 FL (78-98); MEAN PLATELET VOLUME 6.9 FL (7.4-10.4); MONOCYTES # (AUTO) 1.2 X10'3 (0-0.9); MONOCYTES % (AUTO) 16.8 % (2-12); NEUTROPHILS # (AUTO) 3.9 X10'3 (1.8-7.7); PLATELET COUNT 352 X10'3 (140-440); RED BLOOD COUNT 3.28 X10'6 (4.70-6.10); RED CELL DISTRIBUTION WIDTH 17.7 % (11.5-14.5); WHITE BLOOD COUNT 7.3 X10'3 (4.5-11.0)
--- NOTE | 2020-10-31 06:52 | NUR ---
Patient in room TAMAR 349. I have received report from Kaylah GOMEZ and had the opportunity to ask questions and assume patient care.
[2020-10-31] MEDS: propranolol 10mg tablet PO SCH ×3 (07:48→20:52)
[2020-10-31] MEDS: QUEtiapine 25mg tablet PO SCH ×2 (07:48→20:00)
[2020-10-31] MEDS: lactobacillus rhamnosus 10,000 MMU CELLS/CAPSULE PO SCH ×2 (07:48→20:00)
[2020-10-31] MEDS: pantoprazole 40mg Tablet.DR PO SCH ×2 (07:48→20:00)
[2020-10-31] MEDS: sennosides/docusate sodium tablet PO SCH ×2 (07:49→20:00)
[2020-10-31] MEDS: docusate sodium 100mg/10ml UD cup PO SCH ×2 (07:49→20:00)
[2020-10-31] MEDS: mineral oil/petrolatum, white cream 113gm jar TP SCH (07:49)
[2020-10-31] MEDS: ARGININE/GLUTAMINE/CALCIUM BMB (JUVEN 19.3GM PKT) 1 EACH POWD.PACK PO SCH ×2 (07:50→20:00)
[2020-10-31 08:00] VITALS: BP 143/63
[2020-10-31 11:00] VITALS: BP 139/77
[2020-10-31 12:51] VITALS: BP 143/63
[2020-10-31 18:30] VITALS: BP 151/83
--- NOTE | 2020-10-31 18:30 | NUR ---
REFUSED Addendum: 11/01/20 at 0152 by Lisa Yin RN Amended: Links added.
--- NOTE | 2020-10-31 18:30 | NUR ---
Patient in room TAMAR 350. I have received report from ALEX and had the opportunity to ask questions and assume patient care.
--- NOTE | 2020-10-31 18:55 | NUR ---
Problems reprioritized. Patient report given, questions answered & plan of care reviewed with KAROLINA GOMEZ.
--- NOTE | 2020-10-31 19:00 | NUR ---
DRESSING TO LEFT FOOT CHANGED. MODERATE AMOUNT FOUL SMELLING YELLOW DRAINAGE. PT REFUSED MARY. WOUND CLEANED WITH SALINE, NON-ADHERENT DRESSING PLACED OVER OPEN AREAS, COVERED WITH KAYCEE. PT TOLERATED WELL. Addendum: 11/01/20 at 0152 by Lisa Yin RN Amended: Links added.
[2020-10-31 23:00] VITALS: BP 134/84
--- NOTE | 2020-11-01 06:40 | NUR ---
Problems reprioritized. Patient report given, questions answered & plan of care reviewed with MONIQUE.
--- NOTE | 2020-11-01 06:46 | NUR ---
Patient in room TAMAR 350. I have received report from PATRICIA Gonzalez and had the opportunity to ask questions and assume patient care.
[2020-11-01] MEDS ORDERED: methylPREDNISolone acetate 80mg/ml inj**IM only ONE (06:58)
[2020-11-01] MEDS ORDERED: cefTAZidime 1gm inj ONE (06:58)
[2020-11-01 07:30] VITALS: BP 133/72
[2020-11-01] MEDS ORDERED: heparin 1,000unit/ml 10ml vial 10 ML IV ONE ×2 (08:00→10:20)
[2020-11-01] MEDS ORDERED: heparin 1,000 units/ml 10ml inj HE ONE ×2 (08:00)
[2020-11-01] MEDS: mineral oil/petrolatum, white cream 113gm jar TP SCH (08:00)
[2020-11-01] MEDS ORDERED: EPOETIN ALFA-EPBX 20,000 UNIT/ML 1 ML MDV IV ONE (08:00)
[2020-11-01] MEDS: sennosides/docusate sodium tablet PO SCH ×2 (08:00→20:00)
[2020-11-01] MEDS: docusate sodium 100mg/10ml UD cup PO SCH ×2 (08:00→20:00)
[2020-11-01] MEDS: ARGININE/GLUTAMINE/CALCIUM BMB (JUVEN 19.3GM PKT) 1 EACH POWD.PACK PO SCH ×2 (08:00→20:00)
[2020-11-01] MEDS ORDERED: normal saline 1000ml 250 ML IV PRN (08:00)
[2020-11-01] MEDS: lactobacillus rhamnosus 10,000 MMU CELLS/CAPSULE PO SCH ×2 (09:07→20:19)
[2020-11-01] MEDS: propranolol 10mg tablet PO SCH ×3 (09:07→20:19)
[2020-11-01] MEDS: QUEtiapine 25mg tablet PO SCH ×2 (09:08→20:19)
[2020-11-01] MEDS: pantoprazole 40mg Tablet.DR PO SCH ×2 (09:08→20:19)
--- NOTE | 2020-11-01 09:27 | NUR ---
Reassessment: Pt continues eating well with average 75-100% PO intake. Pt working with dietitian teacher for food preferences and receiving Jaydon smoothie BID. LBM 10/31. No further nutrition intervention implemented at this time. Pt awaiting placement per MD note. Will continue to follow. Recommendations: 1) Continue renal, CHO controlled diet 2) Jaydon smoothie BIDBD for wound healing needs 3) Routine bowel care 4) Scaled wts with HD Addendum: 11/01/20 at [address] Amended: Links added.
--- NOTE | 2020-11-01 09:28 | NUR ---
Reassessment: Pt continues eating well with average 75-100% PO intake. Pt working with journal clerk for food preferences, receiving double eggs WB, and receiving Jaydon smoothie BID. LBM 10/31. No further nutrition intervention implemented at this time. Pt awaiting placement per MD note. Will continue to follow. Recommendations: 1) Continue renal, CHO controlled diet; double eggs WB 2) Jaydon smoothie BIDBD for wound healing needs 3) Routine bowel care 4) Scaled wts with HD Addendum: 11/01/20 at [address] Amended: Links added.
[2020-11-01 11:30] VITALS: BP 150/79
--- NOTE | 2020-11-01 13:36 | NUR ---
PAGER ID: [phone] MESSAGE: [phone]: Roshan Lara - Epogen not given for HD b/c pt doesnt have daily CBCs. Would you like orders for the next week? -Abigail [phone]
--- NOTE | 2020-11-01 13:46 | NUR ---
Per [facility] stat CBC, no daily labs today and CBC TThSat.
[2020-11-01 14:21] LABS: BASOPHILS # (AUTO) 0.1 X10'3 (0-0.2); BASOPHILS % (AUTO) 1.2 % (0-1); EOSINOPHILS # (AUTO) 0.1 X10'3 (0-0.9); EOSINOPHILS % (AUTO) 1.1 % (0-6); HEMATOCRIT 31.5 % (42.0-52.0); HEMOGLOBIN 10.7 g/dl (14.0-17.9); LYMPHOCYTES # (AUTO) 2.4 X10'3 (1.1-4.8); MEAN CORPUSCULAR HEMOGLOBIN 30.6 PG (27.0-31.0); MEAN CORPUSCULAR HGB CONC 33.8 g/dL (33.0-36.5); MEAN CORPUSCULAR VOLUME 90.4 FL (78-98); MEAN PLATELET VOLUME 6.6 FL (7.4-10.4); MONOCYTES # (AUTO) 1.3 X10'3 (0-0.9); MONOCYTES % (AUTO) 15.4 % (2-12); NEUTROPHILS # (AUTO) 4.5 X10'3 (1.8-7.7); NEUTROPHILS % (AUTO) 53.3 % (42-75); PLATELET COUNT 394 X10'3 (140-440); RED BLOOD COUNT 3.48 X10'6 (4.70-6.10); RED CELL DISTRIBUTION WIDTH 17.5 % (11.5-14.5); WHITE BLOOD COUNT 8.4 X10'3 (4.5-11.0)
--- NOTE | 2020-11-01 18:21 | NUR ---
Problems reprioritized. Patient report given, questions answered & plan of care reviewed with PATRICIA Ortega.
--- NOTE | 2020-11-01 18:35 | NUR ---
Patient in room TAMAR 350. I have received report from Jacki GOMEZ and Abigail GOMEZ and had the opportunity to ask questions and assume patient care.
[2020-11-01 20:08] VITALS: BP 119/73
[2020-11-02] VITALS: BP 115/71
[2020-11-02 06:39] LABS: BASOPHILS % (AUTO) 0.7 % (0-1); EOSINOPHILS # (AUTO) 0.1 X10'3 (0-0.9); HEMATOCRIT 29.8 % (42.0-52.0); HEMOGLOBIN 9.9 g/dl (14.0-17.9); LYMPHOCYTES # (AUTO) 2.3 X10'3 (1.1-4.8); LYMPHOCYTES % (AUTO) 31.7 % (21-51); MEAN CORPUSCULAR HGB CONC 33.3 g/dL (33.0-36.5); MEAN CORPUSCULAR VOLUME 92.9 FL (78-98); MEAN PLATELET VOLUME 6.5 FL (7.4-10.4); MONOCYTES # (AUTO) 1.3 X10'3 (0-0.9); MONOCYTES % (AUTO) 18.2 % (2-12); NEUTROPHILS # (AUTO) 3.5 X10'3 (1.8-7.7); NEUTROPHILS % (AUTO) 48.4 % (42-75); PLATELET COUNT 354 X10'3 (140-440); RED BLOOD COUNT 3.21 X10'6 (4.70-6.10); RED CELL DISTRIBUTION WIDTH 18.1 % (11.5-14.5); WHITE BLOOD COUNT 7.2 X10'3 (4.5-11.0)
--- NOTE | 2020-11-02 06:40 | NUR ---
Problems reprioritized. Patient report given, questions answered & plan of care reviewed with Hal GOMEZ.
[2020-11-02 07:13] LABS: ANION GAP 11 (8-16); BLOOD UREA NITROGEN 32 MG/DL (7-18); BUN/CREATININE RATIO 5.8 (5.4-32.0); CALCIUM 8.2 MG/DL (8.5-10.1); CHLORIDE 98 MMOL/L (99-107); CREATININE 5.51 MG/DL (0.60-1.10); GLUCOSE 91 MG/DL (70-104); MAGNESIUM 1.7 MG/DL (1.5-2.4); PHOSPHORUS 4.1 MG/DL (2.3-4.5); POTASSIUM 4.5 MMOL/L (3.5-5.1); SODIUM 134 MMOL/L (135-145); TOTAL CARBON DIOXIDE 24.9 MMOL/L (24-32); eGFR 13 ML/MIN
[2020-11-02 07:15] VITALS: BP 113/67
[2020-11-02] MEDS: pantoprazole 40mg Tablet.DR PO SCH ×2 (08:00→20:54)
[2020-11-02] MEDS: propranolol 10mg tablet PO SCH ×3 (08:00→20:54)
[2020-11-02] MEDS: docusate sodium 100mg/10ml UD cup PO SCH ×2 (08:00→20:00)
[2020-11-02] MEDS: sennosides/docusate sodium tablet PO SCH ×2 (08:00→20:00)
[2020-11-02] MEDS: lactobacillus rhamnosus 10,000 MMU CELLS/CAPSULE PO SCH ×2 (08:00→20:00)
[2020-11-02] MEDS: QUEtiapine 25mg tablet PO SCH ×2 (08:00→20:54)
[2020-11-02] MEDS: ARGININE/GLUTAMINE/CALCIUM BMB (JUVEN 19.3GM PKT) 1 EACH POWD.PACK PO SCH ×2 (08:00→20:00)
[2020-11-02] MEDS: mineral oil/petrolatum, white cream 113gm jar TP SCH (08:02)
[2020-11-02 11:00] VITALS: BP 94/52
--- NOTE | 2020-11-02 18:10 | NUR ---
Problems reprioritized. Patient report given, questions answered & plan of care reviewed with Shannon GOMEZ.
--- NOTE | 2020-11-02 18:40 | NUR ---
Patient in room TAMAR 350. I have received report from Joy GOMEZ and had the opportunity to ask questions and assume patient care.
[2020-11-02 20:00] VITALS: BP 114/57
[2020-11-03] VITALS: BP 147/86
--- NOTE | 2020-11-03 06:02 | NUR ---
Problems reprioritized. Patient report given, questions answered & plan of care reviewed with Hal GOMEZ.
[2020-11-03] MEDS: propranolol 10mg tablet PO SCH (07:14)
[2020-11-03] MEDS: pantoprazole 40mg Tablet.DR PO SCH ×2 (07:14→19:56)
[2020-11-03] MEDS: QUEtiapine 25mg tablet PO SCH ×2 (07:15→19:56)
[2020-11-03] MEDS: docusate sodium 100mg/10ml UD cup PO SCH ×2 (07:15→20:00)
[2020-11-03] MEDS: sennosides/docusate sodium tablet PO SCH ×2 (07:15→20:00)
[2020-11-03] MEDS: lactobacillus rhamnosus 10,000 MMU CELLS/CAPSULE PO SCH ×2 (07:15→19:56)
[2020-11-03] MEDS: mineral oil/petrolatum, white cream 113gm jar TP SCH (07:16)
[2020-11-03] MEDS: ARGININE/GLUTAMINE/CALCIUM BMB (JUVEN 19.3GM PKT) 1 EACH POWD.PACK PO SCH ×2 (07:16→20:00)
[2020-11-03 07:32] LABS: BASOPHILS % (AUTO) 0.5 % (0-1); EOSINOPHILS # (AUTO) 0.1 X10'3 (0-0.9); HEMATOCRIT 30.2 % (42.0-52.0); HEMOGLOBIN 10.1 g/dl (14.0-17.9); LYMPHOCYTES # (AUTO) 2.4 X10'3 (1.1-4.8); LYMPHOCYTES % (AUTO) 30.5 % (21-51); MEAN CORPUSCULAR HEMOGLOBIN 31.2 PG (27.0-31.0); MEAN CORPUSCULAR HGB CONC 33.6 g/dL (33.0-36.5); MEAN PLATELET VOLUME 6.7 FL (7.4-10.4); MONOCYTES # (AUTO) 1.2 X10'3 (0-0.9); NEUTROPHILS # (AUTO) 4.2 X10'3 (1.8-7.7); PLATELET COUNT 334 X10'3 (140-440); RED BLOOD COUNT 3.25 X10'6 (4.70-6.10); RED CELL DISTRIBUTION WIDTH 18.2 % (11.5-14.5); WHITE BLOOD COUNT 7.8 X10'3 (4.5-11.0)
[2020-11-03] MEDS ORDERED: EPOETIN ALFA-EPBX 20,000 UNIT/ML 1 ML MDV IV ONE (07:45)
[2020-11-03] MEDS ORDERED: albumin (human) 25% 100ml IV 100 ML IV PRN (07:45)
[2020-11-03] MEDS ORDERED: heparin 1,000unit/ml 10ml vial 10 ML IV ONE (07:45)
[2020-11-03] MEDS ORDERED: heparin 1,000 units/ml 10ml inj IV ONE (07:45)
[2020-11-03 07:48] LABS: ANION GAP 13 (8-16); BLOOD UREA NITROGEN 49 MG/DL (7-18); BUN/CREATININE RATIO 7.1 (5.4-32.0); CALCIUM 8.3 MG/DL (8.5-10.1); CHLORIDE 98 MMOL/L (99-107); CREATININE 6.95 MG/DL (0.60-1.10); GLUCOSE 86 MG/DL (70-104); MAGNESIUM 1.8 MG/DL (1.5-2.4); PHOSPHORUS 5.4 MG/DL (2.3-4.5); POTASSIUM 4.8 MMOL/L (3.5-5.1); SODIUM 134 MMOL/L (135-145); eGFR 10 ML/MIN
[2020-11-03] MEDS ORDERED: heparin 1,000 units/ml 10ml inj HE ONE (07:50)
[2020-11-03] MEDS: heparin 1,000 units/ml 10ml inj HE ONE ×2 (07:50→16:52)
[2020-11-03 08:00] VITALS: BP 132/80
[2020-11-03 11:00] VITALS: BP 138/87
--- NOTE | 2020-11-03 18:00 | NUR ---
Problems reprioritized. Patient report given, questions answered & plan of care reviewed with Arminda GOMEZ.
[2020-11-03 20:00] VITALS: BP 94/58
[2020-11-04 06:35] LABS: BASOPHILS % (AUTO) 0.5 % (0-1); EOSINOPHILS # (AUTO) 0.1 X10'3 (0-0.9); EOSINOPHILS % (AUTO) 0.9 % (0-6); HEMATOCRIT 32.2 % (42.0-52.0); HEMOGLOBIN 10.7 g/dl (14.0-17.9); LYMPHOCYTES # (AUTO) 2.4 X10'3 (1.1-4.8); LYMPHOCYTES % (AUTO) 31.4 % (21-51); MEAN CORPUSCULAR HEMOGLOBIN 31.2 PG (27.0-31.0); MEAN CORPUSCULAR HGB CONC 33.3 g/dL (33.0-36.5); MEAN CORPUSCULAR VOLUME 93.5 FL (78-98); MEAN PLATELET VOLUME 6.7 FL (7.4-10.4); MONOCYTES # (AUTO) 1.2 X10'3 (0-0.9); MONOCYTES % (AUTO) 16.5 % (2-12); NEUTROPHILS # (AUTO) 3.8 X10'3 (1.8-7.7); NEUTROPHILS % (AUTO) 50.7 % (42-75); PLATELET COUNT 313 X10'3 (140-440); RED BLOOD COUNT 3.44 X10'6 (4.70-6.10); RED CELL DISTRIBUTION WIDTH 18.3 % (11.5-14.5); WHITE BLOOD COUNT 7.6 X10'3 (4.5-11.0)
[2020-11-04 06:59] LABS: ALBUMIN 2.1 G/DL (3.4-5.0); ANION GAP 12 (8-16); BLOOD UREA NITROGEN 36 MG/DL (7-18); BUN/CREATININE RATIO 6.4 (5.4-32.0); CALCIUM 8.6 MG/DL (8.5-10.1); CHLORIDE 98 MMOL/L (99-107); GLUCOSE 108 MG/DL (70-104); MAGNESIUM 1.8 MG/DL (1.5-2.4); PHOSPHORUS 4.8 MG/DL (2.3-4.5); POTASSIUM 4.1 MMOL/L (3.5-5.1); SODIUM 135 MMOL/L (135-145); TOTAL CARBON DIOXIDE 25.5 MMOL/L (24-32); eGFR 13 ML/MIN
[2020-11-04] MEDS: QUEtiapine 25mg tablet PO SCH ×2 (07:46→21:29)
[2020-11-04] MEDS: propranolol 10mg tablet PO SCH ×3 (07:46→21:29)
[2020-11-04] MEDS: ARGININE/GLUTAMINE/CALCIUM BMB (JUVEN 19.3GM PKT) 1 EACH POWD.PACK PO SCH ×2 (07:47→20:00)
[2020-11-04] MEDS: sennosides/docusate sodium tablet PO SCH ×2 (07:47→20:00)
[2020-11-04] MEDS: lactobacillus rhamnosus 10,000 MMU CELLS/CAPSULE PO SCH ×2 (07:47→20:00)
[2020-11-04] MEDS: docusate sodium 100mg/10ml UD cup PO SCH ×2 (07:47→20:00)
[2020-11-04] MEDS: pantoprazole 40mg Tablet.DR PO SCH ×2 (07:47→21:29)
[2020-11-04] MEDS: mineral oil/petrolatum, white cream 113gm jar TP SCH (07:47)
[2020-11-04 18:00] VITALS: BP 115/69
--- NOTE | 2020-11-04 18:14 | NUR ---
Patient in room TAMAR 350. I have received report from BRIANNA GOMEZ and had the opportunity to ask questions and assume patient care.
[2020-11-05] VITALS: BP 104/50
--- NOTE | 2020-11-05 06:05 | NUR ---
Patient in room TAMAR 350. I have received report from PATRICIA Carter and had the opportunity to ask questions and assume patient care.
[2020-11-05 06:16] LABS: BASOPHILS % (AUTO) 0.4 % (0-1); EOSINOPHILS # (AUTO) 0.1 X10'3 (0-0.9); EOSINOPHILS % (AUTO) 1.2 % (0-6); HEMATOCRIT 30.3 % (42.0-52.0); HEMOGLOBIN 10.1 g/dl (14.0-17.9); LYMPHOCYTES # (AUTO) 2.8 X10'3 (1.1-4.8); LYMPHOCYTES % (AUTO) 30.7 % (21-51); MEAN CORPUSCULAR HEMOGLOBIN 30.8 PG (27.0-31.0); MEAN CORPUSCULAR HGB CONC 33.2 g/dL (33.0-36.5); MEAN CORPUSCULAR VOLUME 92.9 FL (78-98); MEAN PLATELET VOLUME 6.8 FL (7.4-10.4); MONOCYTES # (AUTO) 1.4 X10'3 (0-0.9); MONOCYTES % (AUTO) 15.5 % (2-12); NEUTROPHILS # (AUTO) 4.7 X10'3 (1.8-7.7); NEUTROPHILS % (AUTO) 52.2 % (42-75); PLATELET COUNT 331 X10'3 (140-440); RED BLOOD COUNT 3.27 X10'6 (4.70-6.10); RED CELL DISTRIBUTION WIDTH 18.1 % (11.5-14.5)
[2020-11-05 06:28] LABS: ANION GAP 14 (8-16); BLOOD UREA NITROGEN 54 MG/DL (7-18); BUN/CREATININE RATIO 6.9 (5.4-32.0); CALCIUM 8.3 MG/DL (8.5-10.1); CHLORIDE 97 MMOL/L (99-107); CREATININE 7.78 MG/DL (0.60-1.10); GLUCOSE 95 MG/DL (70-104); MAGNESIUM 1.9 MG/DL (1.5-2.4); PHOSPHORUS 5.8 MG/DL (2.3-4.5); POTASSIUM 4.3 MMOL/L (3.5-5.1); SODIUM 133 MMOL/L (135-145); TOTAL CARBON DIOXIDE 22.4 MMOL/L (24-32); eGFR 9 ML/MIN
[2020-11-05 06:30] VITALS: BP 102/59
--- NOTE | 2020-11-05 06:44 | NUR ---
Problems reprioritized. Patient report given, questions answered & plan of care reviewed with TITA RN.
[2020-11-05 07:03] LABS: ANISOCYTOSIS 2+; LARGE PLATELETS FEW; PLATELET ESTIMATE NORMAL; POLYCHROMASIA FEW
[2020-11-05] MEDS ORDERED: heparin 1,000 units/ml 10ml inj HE ONE ×2 (08:00)
[2020-11-05] MEDS ORDERED: heparin 1,000 units/ml 10ml inj IV ONE (08:00)
[2020-11-05] MEDS ORDERED: heparin 1,000unit/ml 10ml vial 10 ML IV ONE (08:00)
[2020-11-05] MEDS: QUEtiapine 25mg tablet PO SCH ×2 (09:21→20:28)
[2020-11-05] MEDS: pantoprazole 40mg Tablet.DR PO SCH ×2 (09:21→20:28)
[2020-11-05] MEDS: lactobacillus rhamnosus 10,000 MMU CELLS/CAPSULE PO SCH ×2 (09:21→20:28)
[2020-11-05] MEDS: sennosides/docusate sodium tablet PO SCH ×2 (09:22→20:00)
[2020-11-05] MEDS: docusate sodium 100mg/10ml UD cup PO SCH (09:22)
[2020-11-05] MEDS: mineral oil/petrolatum, white cream 113gm jar TP SCH (09:23)
[2020-11-05] MEDS: ARGININE/GLUTAMINE/CALCIUM BMB (JUVEN 19.3GM PKT) 1 EACH POWD.PACK PO SCH ×2 (09:23→20:00)
[2020-11-05 11:00] VITALS: BP 133/76
[2020-11-05 18:00] VITALS: BP 122/79
--- NOTE | 2020-11-05 18:15 | NUR ---
Problems reprioritized. Patient report given, questions answered & plan of care reviewed with PATRICIA Carter.
--- NOTE | 2020-11-05 18:40 | NUR ---
Patient in room TAMAR 350. I have received report from TITA GOMEZ and had the opportunity to ask questions and assume patient care.
--- NOTE | 2020-11-05 18:41 | NUR ---
Patient in room TAMAR 350. I have received report from Amaya GOMEZ and had the opportunity to ask questions and assume patient care.
[2020-11-06 00:20] VITALS: BP 101/52
[2020-11-06 06:00] LABS: BASOPHILS # (AUTO) 0.1 X10'3 (0-0.2); BASOPHILS % (AUTO) 0.7 % (0-1); EOSINOPHILS # (AUTO) 0.1 X10'3 (0-0.9); EOSINOPHILS % (AUTO) 1.2 % (0-6); HEMATOCRIT 30.9 % (42.0-52.0); HEMOGLOBIN 10.4 g/dl (14.0-17.9); LYMPHOCYTES # (AUTO) 2.3 X10'3 (1.1-4.8); MEAN CORPUSCULAR HEMOGLOBIN 31.3 PG (27.0-31.0); MEAN CORPUSCULAR HGB CONC 33.7 g/dL (33.0-36.5); MEAN CORPUSCULAR VOLUME 92.7 FL (78-98); MEAN PLATELET VOLUME 6.9 FL (7.4-10.4); MONOCYTES # (AUTO) 1.6 X10'3 (0-0.9); MONOCYTES % (AUTO) 16.3 % (2-12); NEUTROPHILS # (AUTO) 5.5 X10'3 (1.8-7.7); NEUTROPHILS % (AUTO) 57.8 % (42-75); PLATELET COUNT 320 X10'3 (140-440); RED BLOOD COUNT 3.33 X10'6 (4.70-6.10); WHITE BLOOD COUNT 9.6 X10'3 (4.5-11.0)
--- NOTE | 2020-11-06 06:19 | NUR ---
Pt refused honey and alginate for wound care orders. Patient feels its making his foot worse. Addendum: 11/06/20 at 0620 by Lee Mora RN Amended: Links added.
--- NOTE | 2020-11-06 06:20 | NUR ---
Patient in room TAMAR 350. I have received report from PATRICIA Carter and had the opportunity to ask questions and assume patient care.
[2020-11-06 06:25] LABS: ALBUMIN 2.2 G/DL (3.4-5.0); ANION GAP 10 (8-16); BLOOD UREA NITROGEN 35 MG/DL (7-18); BUN/CREATININE RATIO 6.3 (5.4-32.0); CALCIUM 8.3 MG/DL (8.5-10.1); CHLORIDE 98 MMOL/L (99-107); CREATININE 5.59 MG/DL (0.60-1.10); GLUCOSE 113 MG/DL (70-104); MAGNESIUM 1.7 MG/DL (1.5-2.4); PHOSPHORUS 4.3 MG/DL (2.3-4.5); SODIUM 134 MMOL/L (135-145); TOTAL CARBON DIOXIDE 25.9 MMOL/L (24-32); eGFR 13 ML/MIN
--- NOTE | 2020-11-06 06:37 | NUR ---
Problems reprioritized. Patient report given, questions answered & plan of care reviewed with TITA RN.
[2020-11-06 07:00] VITALS: BP 95/63
[2020-11-06] MEDS: sennosides/docusate sodium tablet PO SCH ×2 (07:28→22:09)
[2020-11-06] MEDS: propranolol 10mg tablet PO SCH ×3 (07:49→22:02)
[2020-11-06] MEDS: lactobacillus rhamnosus 10,000 MMU CELLS/CAPSULE PO SCH ×2 (07:53→22:00)
[2020-11-06] MEDS: QUEtiapine 25mg tablet PO SCH ×2 (07:53→22:02)
[2020-11-06] MEDS: pantoprazole 40mg Tablet.DR PO SCH ×2 (07:53→22:01)
[2020-11-06] MEDS: mineral oil/petrolatum, white cream 113gm jar TP SCH (07:54)
[2020-11-06] MEDS: ARGININE/GLUTAMINE/CALCIUM BMB (JUVEN 19.3GM PKT) 1 EACH POWD.PACK PO SCH ×2 (07:57→20:00)
[2020-11-06 11:00] VITALS: BP 97/61
[2020-11-06 18:00] VITALS: BP 120/81
--- NOTE | 2020-11-06 18:25 | NUR ---
Patient in room TAMAR 350. I have received report from Amaya GOMEZ and had the opportunity to ask questions and assume patient care.
--- NOTE | 2020-11-06 18:25 | NUR ---
Problems reprioritized. Patient report given, questions answered & plan of care reviewed with PATRICIA Burks.
[2020-11-06] MEDS: clindamycin 150mg capsule PO SCH (22:00)
[2020-11-07 00:30] VITALS: BP 90/49
[2020-11-07] MEDS: clindamycin 150mg capsule PO SCH ×4 (03:06→20:31)
--- NOTE | 2020-11-07 06:45 | NUR ---
Patient in room TAMAR 350B. I have received report from PATRICIA WANG and had the opportunity to ask questions and assume patient care.
[2020-11-07 06:49] LABS: BASOPHILS % (AUTO) 0.4 % (0-1); EOSINOPHILS # (AUTO) 0.1 X10'3 (0-0.9); EOSINOPHILS % (AUTO) 1.3 % (0-6); HEMATOCRIT 29.3 % (42.0-52.0); LYMPHOCYTES # (AUTO) 2.3 X10'3 (1.1-4.8); LYMPHOCYTES % (AUTO) 26.7 % (21-51); MEAN CORPUSCULAR HEMOGLOBIN 31.5 PG (27.0-31.0); MEAN CORPUSCULAR HGB CONC 34.3 g/dL (33.0-36.5); MEAN PLATELET VOLUME 6.6 FL (7.4-10.4); MONOCYTES # (AUTO) 1.2 X10'3 (0-0.9); MONOCYTES % (AUTO) 13.9 % (2-12); NEUTROPHILS # (AUTO) 5.1 X10'3 (1.8-7.7); NEUTROPHILS % (AUTO) 57.7 % (42-75); PLATELET COUNT 311 X10'3 (140-440); RED BLOOD COUNT 3.18 X10'6 (4.70-6.10); RED CELL DISTRIBUTION WIDTH 18.5 % (11.5-14.5); WHITE BLOOD COUNT 8.8 X10'3 (4.5-11.0)
--- NOTE | 2020-11-07 06:55 | NUR ---
Reported off to Domonique GOMEZ
[2020-11-07 07:00] VITALS: BP 114/51
[2020-11-07 07:00] LABS: ALBUMIN 2.1 G/DL (3.4-5.0); ANION GAP 12 (8-16); BLOOD UREA NITROGEN 52 MG/DL (7-18); CALCIUM 8.4 MG/DL (8.5-10.1); CHLORIDE 96 MMOL/L (99-107); CREATININE 7.48 MG/DL (0.60-1.10); GLUCOSE 95 MG/DL (70-104); MAGNESIUM 1.8 MG/DL (1.5-2.4); PHOSPHORUS 6.3 MG/DL (2.3-4.5); POTASSIUM 4.7 MMOL/L (3.5-5.1); SODIUM 132 MMOL/L (135-145); TOTAL CARBON DIOXIDE 24.4 MMOL/L (24-32); eGFR 9 ML/MIN
[2020-11-07] MEDS: propranolol 10mg tablet PO SCH ×3 (07:46→20:30)
[2020-11-07] MEDS: lactobacillus rhamnosus 10,000 MMU CELLS/CAPSULE PO SCH ×2 (07:46→20:30)
[2020-11-07] MEDS: pantoprazole 40mg Tablet.DR PO SCH ×2 (07:46→20:30)
[2020-11-07] MEDS: QUEtiapine 25mg tablet PO SCH ×2 (07:47→20:30)
[2020-11-07] MEDS: sennosides/docusate sodium tablet PO SCH ×2 (07:50→20:31)
[2020-11-07] MEDS: mineral oil/petrolatum, white cream 113gm jar TP SCH (08:00)
[2020-11-07] MEDS: ARGININE/GLUTAMINE/CALCIUM BMB (JUVEN 19.3GM PKT) 1 EACH POWD.PACK PO SCH ×2 (08:00→20:00)
[2020-11-07 11:00] VITALS: BP 111/68
[2020-11-07] MEDS ORDERED: levoFLOXACIN-Levaquin 250mg/D5 50 ML IV SCH (11:00)
--- NOTE | 2020-11-07 13:36 | NUR ---
F/u 11/07: Pt continues eating well ~100% avg meals meeting needs. Pt working with staffing clerk for food preferences, receiving double eggs WB, and Jaydon smoothie BID. Per RN today pt prefers vanilla Jaydon shake BIDBD instead; dietary notified of preference. LBM 11/05. RD d/w RN regarding phos binder w/ meals if MD agreeable since on HD w/ Phos 6.3 today. No further nutrition intervention implemented at this time. Will continue to follow. Recommendations: 1) Continue renal, CHO controlled diet; double eggs WB 2) vanilla Jaydon shake BIDBD for wound healing needs per pt preference 3) Routine bowel care 4) Scaled wts with HD Addendum: 11/07/20 at [address] Amended: Links added.
[2020-11-07 14:15] VITALS: BP 97/63
[2020-11-07] MEDS: levoFLOXACIN 250mg tablet PO SCH (15:33)
[2020-11-07 18:00] VITALS: BP 134/85
--- NOTE | 2020-11-07 18:45 | NUR ---
Problems reprioritized. Patient report given, questions answered & plan of care reviewed with PATRICIA YANG.
--- NOTE | 2020-11-07 19:10 | NUR ---
pt refused to have lotion applied to extremities or float leg on pillows
[2020-11-07 23:33] VITALS: BP 104/53
[2020-11-08] MEDS: clindamycin 150mg capsule PO SCH ×4 (02:41→21:07)
--- NOTE | 2020-11-08 06:08 | NUR ---
Problems reprioritized. Patient report given, questions answered & plan of care reviewed with Domonique GOMEZ.
[2020-11-08 06:44] LABS: BASOPHILS % (AUTO) 0.4 % (0-1); EOSINOPHILS # (AUTO) 0.1 X10'3 (0-0.9); EOSINOPHILS % (AUTO) 1.1 % (0-6); HEMATOCRIT 29.1 % (42.0-52.0); LYMPHOCYTES # (AUTO) 2.3 X10'3 (1.1-4.8); LYMPHOCYTES % (AUTO) 23.5 % (21-51); MEAN CORPUSCULAR HEMOGLOBIN 31.5 PG (27.0-31.0); MEAN CORPUSCULAR HGB CONC 34.3 g/dL (33.0-36.5); MEAN CORPUSCULAR VOLUME 91.8 FL (78-98); MEAN PLATELET VOLUME 6.8 FL (7.4-10.4); MONOCYTES # (AUTO) 1.3 X10'3 (0-0.9); MONOCYTES % (AUTO) 12.8 % (2-12); NEUTROPHILS # (AUTO) 6.1 X10'3 (1.8-7.7); NEUTROPHILS % (AUTO) 62.2 % (42-75); PLATELET COUNT 300 X10'3 (140-440); RED BLOOD COUNT 3.17 X10'6 (4.70-6.10); WHITE BLOOD COUNT 9.8 X10'3 (4.5-11.0)
[2020-11-08 06:51] LABS: ALBUMIN 2.1 G/DL (3.4-5.0); ANION GAP 17 (8-16); BLOOD UREA NITROGEN 71 MG/DL (7-18); BUN/CREATININE RATIO 7.8 (5.4-32.0); CHLORIDE 95 MMOL/L (99-107); CREATININE 9.15 MG/DL (0.60-1.10); GLUCOSE 106 MG/DL (70-104); MAGNESIUM 1.8 MG/DL (1.5-2.4); POTASSIUM 5.1 MMOL/L (3.5-5.1); SODIUM 132 MMOL/L (135-145); TOTAL CARBON DIOXIDE 20.4 MMOL/L (24-32); eGFR 7 ML/MIN
[2020-11-08 07:00] VITALS: BP 105/65
--- NOTE | 2020-11-08 07:16 | NUR ---
Patient in room TAMAR 350B. I have received report from PATRICIA YANG and had the opportunity to ask questions and assume patient care.
[2020-11-08] MEDS: sennosides/docusate sodium tablet PO SCH ×2 (08:00→21:08)
[2020-11-08] MEDS: mineral oil/petrolatum, white cream 113gm jar TP SCH (08:00)
[2020-11-08] MEDS: ARGININE/GLUTAMINE/CALCIUM BMB (JUVEN 19.3GM PKT) 1 EACH POWD.PACK PO SCH ×2 (08:00→20:00)
[2020-11-08] MEDS: lactobacillus rhamnosus 10,000 MMU CELLS/CAPSULE PO SCH ×2 (09:04→20:00)
[2020-11-08] MEDS: pantoprazole 40mg Tablet.DR PO SCH ×2 (09:04→21:07)
[2020-11-08] MEDS: QUEtiapine 25mg tablet PO SCH ×2 (09:05→21:08)
[2020-11-08 11:00] VITALS: BP 114/31
[2020-11-08] MEDS: levoFLOXACIN 250mg tablet PO SCH (11:23)
[2020-11-08] MEDS ORDERED: heparin 1,000 units/ml 10ml inj IV ONE (12:45)
[2020-11-08] MEDS ORDERED: heparin 1,000unit/ml 10ml vial 10 ML IV ONE (12:45)
[2020-11-08] MEDS ORDERED: heparin 1,000 units/ml 10ml inj HE ONE ×2 (12:50)
[2020-11-08] MEDS ORDERED: ondansetron 4mg rapidly disintigrating tab PO PRN (15:20)
[2020-11-08] MEDS: sevelamer carbonate 800mg tablet PO SCH (18:38)
--- NOTE | 2020-11-08 18:42 | NUR ---
Problems reprioritized. Patient report given, questions answered & plan of care reviewed with PATRICIA YANG.
--- NOTE | 2020-11-08 19:03 | NUR ---
Patient in room TAMAR 350. I have received report from Domonique GOMEZ and had the opportunity to ask questions and assume patient care.
[2020-11-08 19:20] VITALS: BP 131/90
[2020-11-09] VITALS: BP 114/69
[2020-11-09] MEDS: clindamycin 150mg capsule PO SCH ×4 (03:16→20:06)
--- NOTE | 2020-11-09 06:35 | NUR ---
Problems reprioritized. Patient report given, questions answered & plan of care reviewed with Lee RN and Abigail GOMEZ.
--- NOTE | 2020-11-09 06:54 | NUR ---
Patient in room TAMAR 350. I have received report from PATRICIA Ortega and had the opportunity to ask questions and assume patient care.
[2020-11-09 08:00] VITALS: BP_SYST 102; BP_SYST 92; BP_DIAS 50; BP_DIAS 51
[2020-11-09] MEDS: mineral oil/petrolatum, white cream 113gm jar TP SCH (08:00)
[2020-11-09] MEDS: lactobacillus rhamnosus 10,000 MMU CELLS/CAPSULE PO SCH ×2 (08:00→20:00)
[2020-11-09] MEDS: sennosides/docusate sodium tablet PO SCH ×2 (08:00→20:00)
[2020-11-09] MEDS: QUEtiapine 25mg tablet PO SCH ×2 (08:34→20:06)
[2020-11-09] MEDS: pantoprazole 40mg Tablet.DR PO SCH ×2 (08:34→20:06)
[2020-11-09] MEDS: sevelamer carbonate 800mg tablet PO SCH ×3 (08:34→17:51)
[2020-11-09] MEDS: levoFLOXACIN 250mg tablet PO SCH (11:36)
--- NOTE | 2020-11-09 18:24 | NUR ---
Patient in room TAMAR 350. I have received report from Lee GOMEZ and Abigail GOMEZ and had the opportunity to ask questions and assume patient care.
--- NOTE | 2020-11-09 18:31 | NUR ---
Problems reprioritized. Patient report given, questions answered & plan of care reviewed with Esthela Proctor RN.
[2020-11-09 20:00] VITALS: BP 130/69
[2020-11-09] MEDS: JUVEN Smoothie Arginine/Glut./Ca2+Bmb (Juven 19.3pkt) 240ml cup PO SCH (20:08)
[2020-11-10 00:07] VITALS: BP 124/66
[2020-11-10] MEDS: clindamycin 150mg capsule PO SCH (03:01)
--- NOTE | 2020-11-10 06:28 | NUR ---
Problems reprioritized. Patient report given, questions answered & plan of care reviewed with Jacki GOMEZ and Anuj GOMEZ.
--- NOTE | 2020-11-10 06:29 | NUR ---
Patient in room TAMAR 350. I have received report from PATRICIA Ortega and had the opportunity to ask questions and assume patient care.
[2020-11-10 07:00] VITALS: BP 137/81
--- NOTE | 2020-11-10 07:14 | NUR ---
PAGER ID: [phone] MESSAGE: [id number]: Roshan Lara -No new orders for labs. Would you like a CBC and CMP for the next week? -Abigail [phone]
[2020-11-10] MEDS: sennosides/docusate sodium tablet PO SCH ×2 (07:48→20:00)
[2020-11-10] MEDS: pantoprazole 40mg Tablet.DR PO SCH ×2 (07:48→19:51)
[2020-11-10] MEDS: lactobacillus rhamnosus 10,000 MMU CELLS/CAPSULE PO SCH ×2 (07:48→19:52)
[2020-11-10] MEDS: sulfamethoxazole/trimethoprim DS (800/160mg) tablet PO SCH ×2 (07:48→19:51)
[2020-11-10] MEDS: QUEtiapine 25mg tablet PO SCH ×2 (07:48→19:52)
[2020-11-10] MEDS: sevelamer carbonate 800mg tablet PO SCH ×3 (07:48→19:51)
[2020-11-10] MEDS: mineral oil/petrolatum, white cream 113gm jar TP SCH (07:49)
[2020-11-10] MEDS ORDERED: albumin (human) 25% 100ml IV 100 ML IV PRN (07:50)
[2020-11-10] MEDS ORDERED: heparin 1,000unit/ml 10ml vial 10 ML IV ONE (07:50)
[2020-11-10] MEDS ORDERED: heparin 1,000 units/ml 10ml inj IV ONE (07:50)
[2020-11-10] MEDS ORDERED: EPOETIN ALFA-EPBX 20,000 UNIT/ML 1 ML MDV IV ONE (07:50)
[2020-11-10] MEDS ORDERED: heparin 1,000 units/ml 10ml inj HE ONE ×2 (07:55)
[2020-11-10] MEDS: JUVEN Smoothie Arginine/Glut./Ca2+Bmb (Juven 19.3pkt) 240ml cup PO SCH ×2 (08:57→19:55)
[2020-11-10] MEDS ORDERED: LIDOcaine 2% 5ml jelly TOP ONE (09:00)
--- NOTE | 2020-11-10 10:42 | NUR ---
Spoke to Dr. Hubbard regarding pt needing a PIV for a CTA of the left lower limb for wound changes. Stevie stated it was okay to use to the Right TDC for the procedure just as long as it was consulted with the Dialysis nurse. Stevie stated he preferred to have the CTA completed before HD so that the contrast can be dialyzed. Tried contacting on-call dialysis nurse with no response. Will attempt to call again.
[2020-11-10 11:00] VITALS: BP 131/74
--- NOTE | 2020-11-10 12:09 | NUR ---
Spoke with on-call floor renovator, she said that she will be on the floor to dialyze this patient around [phone], so if the patient could get his CTA completed anytime between now and 1400 that would work. Spoke with solar fabrication technician and let them know, she will call back when she is ready for patient to be placed in a wheelchair and taken down.
[2020-11-10] MEDS ORDERED: iohexol 350MG/ML 100ml bottle IV ONE (13:58)
[2020-11-10] MEDS ORDERED: iohexol 350 MG/ML 50ML vial IV ONE (13:58)
--- NOTE | 2020-11-10 15:59 | NUR ---
Spoke with Dr. Hubbard, to clarify CTA order. He said that he was not the one that ordered it and to ask the person who ordered it if it is urgent or not. Dr. Hubbard said if the CTA is urgent then it will need to be done, if it is NOT urgent then it would be okay to wait until right before patient is scheduled to be dialyzed again (Saturday). Spoke with wound care team, I was notified that the CTA was not an urgent order and did not need to be done today.
--- NOTE | 2020-11-10 18:23 | NUR ---
Problems reprioritized. Patient report given, questions answered & plan of care reviewed with Emma & PATRICIA JESUS.
--- NOTE | 2020-11-10 18:42 | NUR ---
Patient in room TAMAR 350. I have received report from GORDON GOMEZ and had the opportunity to ask questions and assume patient care.
--- NOTE | 2020-11-10 18:49 | NUR ---
Patient in room TAMAR 350. I have received report from Abigail GOMEZ and had the opportunity to ask questions and assume patient care.
[2020-11-10 19:00] VITALS: BP 100/63
[2020-11-11] VITALS: BP 102/50
--- NOTE | 2020-11-11 06:15 | NUR ---
Patient in room TAMAR 350. I have received report from Emma and PATRICIA JESUS and had the opportunity to ask questions and assume patient care.
--- NOTE | 2020-11-11 06:24 | NUR ---
Problems reprioritized. Patient report given, questions answered & plan of care reviewed with Abigail GOMEZ and Fidelia GOMEZ.
--- NOTE | 2020-11-11 06:24 | NUR ---
Problems reprioritized. Patient report given, questions answered & plan of care reviewed with GORDON GOMEZ.
[2020-11-11 07:00] VITALS: BP 102/61
[2020-11-11] MEDS: sevelamer carbonate 800mg tablet PO SCH ×3 (07:32→17:18)
[2020-11-11] MEDS: sulfamethoxazole/trimethoprim DS (800/160mg) tablet PO SCH ×2 (07:32→21:03)
[2020-11-11] MEDS: pantoprazole 40mg Tablet.DR PO SCH ×2 (07:32→21:02)
[2020-11-11] MEDS: QUEtiapine 25mg tablet PO SCH ×2 (07:32→21:03)
[2020-11-11] MEDS: lactobacillus rhamnosus 10,000 MMU CELLS/CAPSULE PO SCH ×2 (07:33→21:03)
[2020-11-11] MEDS: mineral oil/petrolatum, white cream 113gm jar TP SCH (07:33)
[2020-11-11] MEDS: sennosides/docusate sodium tablet PO SCH ×2 (07:33→20:00)
[2020-11-11] MEDS: JUVEN Smoothie Arginine/Glut./Ca2+Bmb (Juven 19.3pkt) 240ml cup PO SCH ×2 (08:00→20:00)
[2020-11-11 11:00] VITALS: BP 98/56
--- NOTE | 2020-11-11 18:00 | NUR ---
Problems reprioritized. Patient report given, questions answered & plan of care reviewed with Esthela Proctor RN .
--- NOTE | 2020-11-11 18:30 | NUR ---
Patient in room TAMAR 350. I have received report from DOMITILA GOMEZ AND NATALIIA GOMEZ and had the opportunity to ask questions and assume patient care.
[2020-11-11 20:00] VITALS: BP 121/72
[2020-11-12] VITALS: BP 99/52
--- NOTE | 2020-11-12 06:30 | NUR ---
Problems reprioritized. Patient report given, questions answered & plan of care reviewed with BRIANNA GOMEZ.
[2020-11-12 06:50] LABS: HEMATOCRIT 27.2 % (42.0-52.0); HEMOGLOBIN 9.3 g/dl (14.0-17.9); MEAN CORPUSCULAR HEMOGLOBIN 31.7 PG (27.0-31.0); MEAN CORPUSCULAR HGB CONC 34.3 g/dL (33.0-36.5); MEAN CORPUSCULAR VOLUME 92.3 FL (78-98); MEAN PLATELET VOLUME 6.5 FL (7.4-10.4); PLATELET COUNT 235 X10'3 (140-440); RED BLOOD COUNT 2.94 X10'6 (4.70-6.10); RED CELL DISTRIBUTION WIDTH 18.3 % (11.5-14.5); WHITE BLOOD COUNT 9.3 X10'3 (4.5-11.0)
[2020-11-12] MEDS: pantoprazole 40mg Tablet.DR PO SCH ×2 (07:32→20:01)
[2020-11-12] MEDS: sulfamethoxazole/trimethoprim DS (800/160mg) tablet PO SCH ×2 (07:32→20:01)
[2020-11-12] MEDS: sevelamer carbonate 800mg tablet PO SCH ×3 (07:32→20:01)
[2020-11-12] MEDS: QUEtiapine 25mg tablet PO SCH ×2 (07:32→20:01)
[2020-11-12] MEDS: JUVEN Smoothie Arginine/Glut./Ca2+Bmb (Juven 19.3pkt) 240ml cup PO SCH ×2 (07:33→20:00)
[2020-11-12] MEDS: lactobacillus rhamnosus 10,000 MMU CELLS/CAPSULE PO SCH ×2 (07:33→20:01)
[2020-11-12] MEDS: sennosides/docusate sodium tablet PO SCH ×2 (07:33→20:00)
[2020-11-12 08:00] VITALS: BP 98/61
[2020-11-12] MEDS ORDERED: heparin 1,000 units/ml 10ml inj HE ONE ×2 (08:00)
[2020-11-12] MEDS ORDERED: heparin 1,000unit/ml 10ml vial 10 ML IV ONE (08:00)
[2020-11-12] MEDS ORDERED: albumin (human) 25% 100ml IV 100 ML IV PRN (08:00)
[2020-11-12] MEDS ORDERED: EPOETIN ALFA-EPBX 20,000 UNIT/ML 1 ML MDV IV ONE (08:00)
[2020-11-12] MEDS ORDERED: heparin 1,000 units/ml 10ml inj IV ONE (08:00)
[2020-11-12] MEDS ORDERED: iohexol 350MG/ML 100ml bottle IV ONE (09:16)
[2020-11-12] MEDS ORDERED: iohexol 350 MG/ML 50ML vial IV ONE (09:16)
[2020-11-12 11:00] VITALS: BP 91/50
--- NOTE | 2020-11-12 18:30 | NUR ---
Patient in room TAMAR 350. I have received report from BRIANNA GOMEZ and had the opportunity to ask questions and assume patient care.
[2020-11-12 20:00] VITALS: BP 114/67
[2020-11-13] VITALS: BP 98/60
--- NOTE | 2020-11-13 06:22 | NUR ---
Problems reprioritized. Patient report given, questions answered & plan of care reviewed with BRIANNA GOMEZ.
[2020-11-13] MEDS: pantoprazole 40mg Tablet.DR PO SCH ×2 (07:24→20:31)
[2020-11-13] MEDS: sulfamethoxazole/trimethoprim DS (800/160mg) tablet PO SCH ×2 (07:24→20:31)
[2020-11-13] MEDS: QUEtiapine 25mg tablet PO SCH ×2 (07:24→20:31)
[2020-11-13] MEDS: sevelamer carbonate 800mg tablet PO SCH ×3 (07:25→17:30)
[2020-11-13] MEDS: sennosides/docusate sodium tablet PO SCH ×2 (07:25→20:00)
[2020-11-13] MEDS: JUVEN Smoothie Arginine/Glut./Ca2+Bmb (Juven 19.3pkt) 240ml cup PO SCH ×2 (07:25→20:31)
[2020-11-13] MEDS: lactobacillus rhamnosus 10,000 MMU CELLS/CAPSULE PO SCH ×2 (07:25→20:30)
[2020-11-13 11:00] VITALS: BP 126/45
[2020-11-13 18:00] VITALS: BP 156/97
[2020-11-14] VITALS: BP 132/71
--- NOTE | 2020-11-14 06:39 | NUR ---
Problems reprioritized. Patient report given, questions answered & plan of care reviewed with YINKA. Addendum: 11/14/20 at 0640 by Terrence Mota RN Amended: Links added.
[2020-11-14 07:00] VITALS: BP 149/80
--- NOTE | 2020-11-14 07:18 | NUR ---
Patient in room TAMAR 350. I have received report from Fitz GOMEZ and had the opportunity to ask questions and assume patient care.
[2020-11-14] MEDS: JUVEN Smoothie Arginine/Glut./Ca2+Bmb (Juven 19.3pkt) 240ml cup PO SCH ×2 (08:00→20:00)
[2020-11-14] MEDS: sennosides/docusate sodium tablet PO SCH ×2 (08:00→20:00)
[2020-11-14] MEDS: lactobacillus rhamnosus 10,000 MMU CELLS/CAPSULE PO SCH ×2 (10:05→20:24)
[2020-11-14] MEDS: sevelamer carbonate 800mg tablet PO SCH ×3 (10:06→17:30)
[2020-11-14] MEDS: sulfamethoxazole/trimethoprim DS (800/160mg) tablet PO SCH ×2 (10:07→20:24)
[2020-11-14] MEDS: pantoprazole 40mg Tablet.DR PO SCH ×2 (10:07→20:24)
[2020-11-14] MEDS: QUEtiapine 25mg tablet PO SCH ×2 (10:08→20:25)
[2020-11-14 12:00] VITALS: BP 152/74
[2020-11-14 18:00] VITALS: BP 154/84
--- NOTE | 2020-11-14 18:23 | NUR ---
Problems reprioritized. Patient report given, questions answered & plan of care reviewed with Kaylah GOMEZ.
--- NOTE | 2020-11-14 18:41 | NUR ---
Patient in room TAMAR 350. I have received report from PATRICIA Elena and had the opportunity to ask questions and assume patient care.
[2020-11-15] VITALS: BP 127/70
--- NOTE | 2020-11-15 06:30 | NUR ---
Patient in room TAMAR 350. I have received report from Kaylah GOMEZ and had the opportunity to ask questions and assume patient care.
[2020-11-15 06:38] LABS: BASOPHILS % (AUTO) 0.6 % (0-1); EOSINOPHILS # (AUTO) 0.3 X10'3 (0-0.9); EOSINOPHILS % (AUTO) 3.9 % (0-6); HEMOGLOBIN 9.3 g/dl (14.0-17.9); LYMPHOCYTES # (AUTO) 1.9 X10'3 (1.1-4.8); LYMPHOCYTES % (AUTO) 29.3 % (21-51); MEAN CORPUSCULAR HEMOGLOBIN 30.8 PG (27.0-31.0); MEAN CORPUSCULAR HGB CONC 33.3 g/dL (33.0-36.5); MEAN CORPUSCULAR VOLUME 92.3 FL (78-98); MEAN PLATELET VOLUME 6.6 FL (7.4-10.4); MONOCYTES # (AUTO) 0.6 X10'3 (0-0.9); MONOCYTES % (AUTO) 9.4 % (2-12); NEUTROPHILS # (AUTO) 3.7 X10'3 (1.8-7.7); NEUTROPHILS % (AUTO) 56.8 % (42-75); PLATELET COUNT 209 X10'3 (140-440); RED BLOOD COUNT 3.03 X10'6 (4.70-6.10); RED CELL DISTRIBUTION WIDTH 18.2 % (11.5-14.5); WHITE BLOOD COUNT 6.6 X10'3 (4.5-11.0)
[2020-11-15 06:55] LABS: ALANINE AMINOTRANSFERASE 9 U/L (12-78); ALBUMIN/GLOBULIN RATIO 0.4 (1.1-1.5); ALKALINE PHOSPHATASE 69 IU/L (46-116); ANION GAP 17 (8-16); ASPARTATE AMINO TRANSFERASE 12 U/L (10-37); BILIRUBIN,TOTAL 0.4 MG/DL (0.1-1.0); BLOOD UREA NITROGEN 69 MG/DL (7-18); BUN/CREATININE RATIO 7.9 (5.4-32.0); CALCIUM 8.2 MG/DL (8.5-10.1); CHLORIDE 97 MMOL/L (99-107); CREATININE 8.78 MG/DL (0.60-1.10); GLUCOSE 72 MG/DL (70-104); MAGNESIUM 1.9 MG/DL (1.5-2.4); PHOSPHORUS 5.9 MG/DL (2.3-4.5); POTASSIUM 4.4 MMOL/L (3.5-5.1); SODIUM 134 MMOL/L (135-145); TOTAL CARBON DIOXIDE 19.9 MMOL/L (24-32); TOTAL PROTEIN 7.6 G/DL (6.4-8.2); eGFR 8 ML/MIN
[2020-11-15] MEDS: lactobacillus rhamnosus 10,000 MMU CELLS/CAPSULE PO SCH ×2 (07:38→20:00)
[2020-11-15] MEDS: QUEtiapine 25mg tablet PO SCH ×2 (07:38→19:59)
[2020-11-15] MEDS: sulfamethoxazole/trimethoprim DS (800/160mg) tablet PO SCH ×2 (07:38→19:59)
[2020-11-15] MEDS: pantoprazole 40mg Tablet.DR PO SCH ×2 (07:38→20:00)
[2020-11-15] MEDS: sennosides/docusate sodium tablet PO SCH ×2 (07:40→20:00)
[2020-11-15] MEDS: sevelamer carbonate 800mg tablet PO SCH ×3 (07:40→18:22)
[2020-11-15 08:00] VITALS: BP 133/80
[2020-11-15] MEDS ORDERED: heparin 1,000unit/ml 10ml vial 10 ML IV ONE (08:00)
[2020-11-15] MEDS ORDERED: heparin 1,000 units/ml 10ml inj IV ONE (08:00)
[2020-11-15] MEDS ORDERED: albumin (human) 25% 100ml IV 100 ML IV PRN (08:00)
[2020-11-15] MEDS: JUVEN Smoothie Arginine/Glut./Ca2+Bmb (Juven 19.3pkt) 240ml cup PO SCH ×2 (08:00→20:00)
[2020-11-15] MEDS ORDERED: EPOETIN ALFA-EPBX 20,000 UNIT/ML 1 ML MDV IV ONE (08:00)
[2020-11-15] MEDS ORDERED: heparin 1,000 units/ml 10ml inj HE ONE ×2 (08:00)
[2020-11-15 12:00] VITALS: BP 120/62
--- NOTE | 2020-11-15 14:47 | NUR ---
Reassessment: Pt continues eating well with average 75-100% PO intake on renal diet, now with a 1.2 L fluid restriction per MD. Pt receiving Jaydon smoothie BIDLD with fluctuating acceptance. Noted pt documented to be refusing phos binder at times despite elevated phos. LBM 11/15. Will continue to follow. Recommendations: 1) Continue renal diet with fluid restriction per MD; double eggs WB 2) Vanangie ramirezke BIDBD for wound healing needs per pt preference 3) Phos binder with meals 4) Routine bowel care 5) Scaled wts with HD Addendum: 11/15/20 at [address] Amended: Links added.
[2020-11-15 18:00] VITALS: BP 138/87
--- NOTE | 2020-11-15 18:09 | NUR ---
Problems reprioritized. Patient report given, questions answered & plan of care reviewed with Kaylah GOMEZ.
--- NOTE | 2020-11-15 18:30 | NUR ---
Patient in room TAMAR 350. I have received report from PATRICIA Elena and had the opportunity to ask questions and assume patient care.
[2020-11-16 00:24] VITALS: BP 107/67
--- NOTE | 2020-11-16 06:16 | NUR ---
Problems reprioritized. Patient report given, questions answered & plan of care reviewed with PATRICIA Elena.
--- NOTE | 2020-11-16 06:16 | NUR ---
Patient in room ATMAR 350. I have received report from Shannon GOMEZ and had the opportunity to ask questions and assume patient care.
[2020-11-16] MEDS: sennosides/docusate sodium tablet PO SCH ×2 (08:00→19:18)
[2020-11-16] MEDS: JUVEN Smoothie Arginine/Glut./Ca2+Bmb (Juven 19.3pkt) 240ml cup PO SCH ×2 (08:00→19:18)
[2020-11-16] MEDS: sulfamethoxazole/trimethoprim DS (800/160mg) tablet PO SCH ×2 (09:36→19:17)
[2020-11-16] MEDS: sevelamer carbonate 800mg tablet PO SCH ×3 (09:37→17:30)
[2020-11-16] MEDS: QUEtiapine 25mg tablet PO SCH ×2 (09:37→19:16)
[2020-11-16] MEDS: pantoprazole 40mg Tablet.DR PO SCH ×2 (09:37→19:17)
[2020-11-16] MEDS: lactobacillus rhamnosus 10,000 MMU CELLS/CAPSULE PO SCH ×2 (09:37→19:16)
[2020-11-16 12:00] VITALS: BP 114/52
[2020-11-16 12:13] VITALS: BP 146/81
[2020-11-16 18:00] VITALS: BP 134/72
--- NOTE | 2020-11-16 18:13 | NUR ---
Problems reprioritized. Patient report given, questions answered & plan of care reviewed with Kaylah GOMEZ.
--- NOTE | 2020-11-16 18:15 | NUR ---
Patient in room TAMAR 350. I have received report from PATRICIA Elena and had the opportunity to ask questions and assume patient care.
[2020-11-17] VITALS: BP 124/65
--- NOTE | 2020-11-17 06:23 | NUR ---
Problems reprioritized. Patient report given, questions answered & plan of care reviewed with PATRICIA Youssef.
--- NOTE | 2020-11-17 06:45 | NUR ---
Patient in room TAMAR 350B. I have received report from PATRICIA LENTZ and had the opportunity to ask questions and assume patient care.
[2020-11-17 07:00] VITALS: BP 135/60
[2020-11-17] MEDS: JUVEN Smoothie Arginine/Glut./Ca2+Bmb (Juven 19.3pkt) 240ml cup PO SCH ×2 (08:00→20:00)
[2020-11-17] MEDS: sennosides/docusate sodium tablet PO SCH ×2 (08:00→20:25)
[2020-11-17] MEDS ORDERED: heparin 1,000unit/ml 10ml vial 10 ML IV ONE (08:50)
[2020-11-17] MEDS ORDERED: heparin 1,000 units/ml 10ml inj HE ONE ×2 (08:50)
[2020-11-17] MEDS ORDERED: EPOETIN ALFA-EPBX 20,000 UNIT/ML 1 ML MDV IV ONE (08:50)
[2020-11-17] MEDS ORDERED: albumin (human) 25% 100ml IV 100 ML IV PRN (08:50)
[2020-11-17] MEDS: sulfamethoxazole/trimethoprim DS (800/160mg) tablet PO SCH ×2 (10:12→20:25)
[2020-11-17] MEDS: lactobacillus rhamnosus 10,000 MMU CELLS/CAPSULE PO SCH ×2 (10:12→20:25)
[2020-11-17] MEDS: pantoprazole 40mg Tablet.DR PO SCH ×2 (10:12→20:26)
[2020-11-17] MEDS: QUEtiapine 25mg tablet PO SCH ×2 (10:12→20:25)
[2020-11-17] MEDS: sevelamer carbonate 800mg tablet PO SCH ×3 (10:12→18:32)
[2020-11-17 12:18] VITALS: BP 138/81
[2020-11-17 18:00] VITALS: BP 144/73
--- NOTE | 2020-11-17 18:00 | NUR ---
Patient in room [facility]AMAR 350. I have received report from MARILOU GOMEZ and had the opportunity to ask questions and assume patient care.
--- NOTE | 2020-11-17 18:40 | NUR ---
Problems reprioritized. Patient report given, questions answered & plan of care reviewed with PATRICIA ALVAREZ.
[2020-11-18] VITALS: BP 100/60
[2020-11-18 04:00] VITALS: BP 112/66
--- NOTE | 2020-11-18 05:26 | NUR ---
WRONG PATIENT AND ENTRY FOR URINE OUTPUT
--- NOTE | 2020-11-18 05:32 | NUR ---
WRONG ENTRY FOR THE 0400 VITAL SIGNS. Addendum: 11/18/20 at 0533 by Emma Jernigan RN Amended: Links added.
--- NOTE | 2020-11-18 06:22 | NUR ---
Patient in room TAMAR 350. I have received report from PATRICIA Carter and had the opportunity to ask questions and assume patient care.
--- NOTE | 2020-11-18 06:37 | NUR ---
Problems reprioritized. Patient report given, questions answered & plan of care reviewed with DOMITILA GOMEZ.
[2020-11-18 07:00] VITALS: BP 114/55
[2020-11-18] MEDS: JUVEN Smoothie Arginine/Glut./Ca2+Bmb (Juven 19.3pkt) 240ml cup PO SCH ×2 (08:00→20:00)
[2020-11-18] MEDS: sennosides/docusate sodium tablet PO SCH ×2 (08:00→20:00)
[2020-11-18] MEDS: pantoprazole 40mg Tablet.DR PO SCH ×2 (09:11→20:00)
[2020-11-18] MEDS: lactobacillus rhamnosus 10,000 MMU CELLS/CAPSULE PO SCH ×2 (09:11→20:00)
[2020-11-18] MEDS: sevelamer carbonate 800mg tablet PO SCH ×3 (09:11→17:31)
[2020-11-18] MEDS: sulfamethoxazole/trimethoprim DS (800/160mg) tablet PO SCH ×2 (09:11→20:27)
[2020-11-18] MEDS: QUEtiapine 25mg tablet PO SCH ×2 (09:11→20:27)
[2020-11-18 20:00] VITALS: BP 135/84
[2020-11-18 23:00] VITALS: BP 135/84
[2020-11-19 06:02] LABS: BASOPHILS # (AUTO) 0.1 X10'3 (0-0.2); BASOPHILS % (AUTO) 0.8 % (0-1); EOSINOPHILS # (AUTO) 0.5 X10'3 (0-0.9); EOSINOPHILS % (AUTO) 6.5 % (0-6); HEMATOCRIT 26.7 % (42.0-52.0); HEMOGLOBIN 9.1 g/dl (14.0-17.9); LYMPHOCYTES # (AUTO) 2.4 X10'3 (1.1-4.8); MEAN CORPUSCULAR HEMOGLOBIN 31.8 PG (27.0-31.0); MEAN CORPUSCULAR VOLUME 93.7 FL (78-98); MEAN PLATELET VOLUME 6.3 FL (7.4-10.4); MONOCYTES # (AUTO) 0.7 X10'3 (0-0.9); MONOCYTES % (AUTO) 10.4 % (2-12); NEUTROPHILS # (AUTO) 3.4 X10'3 (1.8-7.7); NEUTROPHILS % (AUTO) 48.3 % (42-75); PLATELET COUNT 231 X10'3 (140-440); RED BLOOD COUNT 2.85 X10'6 (4.70-6.10); WHITE BLOOD COUNT 7.1 X10'3 (4.5-11.0)
[2020-11-19 07:00] VITALS: BP 136/68
--- NOTE | 2020-11-19 07:05 | NUR ---
Patient in room [facility] 350. I have received report from PATRICIA Hilliard and had the opportunity to ask questions and assume patient care.
--- NOTE | 2020-11-19 07:07 | NUR ---
Problems reprioritized. Patient report given, questions answered & plan of care reviewed with to Abigail GOMEZ .
[2020-11-19] MEDS ORDERED: heparin 1,000unit/ml 10ml vial 10 ML IV ONE (08:00)
[2020-11-19] MEDS: JUVEN Smoothie Arginine/Glut./Ca2+Bmb (Juven 19.3pkt) 240ml cup PO SCH ×2 (08:00→20:00)
[2020-11-19] MEDS ORDERED: EPOETIN ALFA-EPBX 20,000 UNIT/ML 1 ML MDV IV ONE (08:00)
[2020-11-19] MEDS ORDERED: heparin 1,000 units/ml 10ml inj IV ONE (08:00)
[2020-11-19] MEDS ORDERED: heparin 1,000 units/ml 10ml inj HE ONE ×2 (08:00)
[2020-11-19] MEDS ORDERED: albumin (human) 25% 100ml IV 100 ML IV PRN (08:00)
[2020-11-19] MEDS: QUEtiapine 25mg tablet PO SCH ×2 (08:12→20:53)
[2020-11-19] MEDS: sulfamethoxazole/trimethoprim DS (800/160mg) tablet PO SCH ×2 (08:12→20:53)
[2020-11-19] MEDS: sevelamer carbonate 800mg tablet PO SCH ×3 (08:12→17:43)
[2020-11-19] MEDS: sennosides/docusate sodium tablet PO SCH ×2 (08:12→20:00)
[2020-11-19] MEDS: pantoprazole 40mg Tablet.DR PO SCH ×2 (08:12→20:00)
[2020-11-19] MEDS: lactobacillus rhamnosus 10,000 MMU CELLS/CAPSULE PO SCH ×2 (08:12→20:00)
[2020-11-19 11:00] VITALS: BP 130/68
[2020-11-19 18:30] VITALS: BP 118/67
--- NOTE | 2020-11-19 18:30 | NUR ---
Patient in room [facility] 350. I have received report from DOMITILA and had the opportunity to ask questions and assume patient care.
--- NOTE | 2020-11-19 18:33 | NUR ---
Patient in room TAMAR 350. I have received report from PATRICIA Gonzalez and had the opportunity to ask questions and assume patient care.
--- NOTE | 2020-11-19 22:59 | NUR ---
Patient in room [facility] 350. I have received report from Lisa Farias and had the opportunity to ask questions and assume patient care. Addendum: 11/19/20 at 2300 by Nancy Galvez RN Amended: Links added.
--- NOTE | 2020-11-19 23:00 | NUR ---
Problems reprioritized. Patient report given, questions answered & plan of care reviewed with
[2020-11-20] VITALS: BP 116/66
--- NOTE | 2020-11-20 06:26 | NUR ---
Patient in room [facility] 350. I have received report from PATRICIA Cruz and had the opportunity to ask questions and assume patient care.
--- NOTE | 2020-11-20 06:28 | NUR ---
Problems reprioritized. Patient report given, questions answered & plan of care reviewed with SYLWIA GOMEZ. Addendum: 11/20/20 at 0673 by Nancy Galvez RN Amended: Links added.
[2020-11-20 06:50] VITALS: BP 104/59
[2020-11-20] MEDS: JUVEN Smoothie Arginine/Glut./Ca2+Bmb (Juven 19.3pkt) 240ml cup PO SCH ×2 (08:00→20:58)
[2020-11-20] MEDS: sevelamer carbonate 800mg tablet PO SCH ×3 (08:13→17:33)
[2020-11-20] MEDS: sulfamethoxazole/trimethoprim DS (800/160mg) tablet PO SCH ×2 (08:13→20:57)
[2020-11-20] MEDS: QUEtiapine 25mg tablet PO SCH ×2 (08:13→20:57)
[2020-11-20] MEDS: lactobacillus rhamnosus 10,000 MMU CELLS/CAPSULE PO SCH ×2 (08:14→20:57)
[2020-11-20] MEDS: pantoprazole 40mg Tablet.DR PO SCH ×2 (08:14→20:57)
[2020-11-20] MEDS: sennosides/docusate sodium tablet PO SCH ×2 (08:14→20:57)
[2020-11-20 11:00] VITALS: BP 133/77
--- NOTE | 2020-11-20 18:10 | NUR ---
Problems reprioritized. Patient report given, questions answered & plan of care reviewed with PATRICIA Hart.
--- NOTE | 2020-11-20 18:28 | NUR ---
Patient in room [facility] 350. I have received report from MADONNA GOMEZ and had the opportunity to ask questions and assume patient care. Addendum: 11/20/20 at 1828 by Nancy Galvez RN Amended: Links added. Addendum: 11/20/20 at 1834 by Nancy Galvez RN Patient in room [facility] 350. I have received report from SYLWIA GOMEZ and had the opportunity to ask questions and assume patient care.
[2020-11-20 18:56] VITALS: BP 117/67
[2020-11-20 23:39] VITALS: BP 118/57
--- NOTE | 2020-11-21 06:32 | NUR ---
Problems reprioritized. Patient report given, questions answered & plan of care reviewed with BRIANNA GOMEZ. Addendum: 11/21/20 at 0632 by Nancy Galvez RN Amended: Links added.
[2020-11-21 07:00] VITALS: BP 127/80
[2020-11-21] MEDS: sulfamethoxazole/trimethoprim DS (800/160mg) tablet PO SCH ×2 (07:27→20:26)
[2020-11-21] MEDS: lactobacillus rhamnosus 10,000 MMU CELLS/CAPSULE PO SCH ×2 (07:28→20:26)
[2020-11-21] MEDS: QUEtiapine 25mg tablet PO SCH ×2 (07:28→20:26)
[2020-11-21] MEDS: sevelamer carbonate 800mg tablet PO SCH ×3 (07:28→17:37)
[2020-11-21] MEDS: pantoprazole 40mg Tablet.DR PO SCH ×2 (07:28→20:26)
[2020-11-21] MEDS: sennosides/docusate sodium tablet PO SCH ×2 (07:28→20:26)
[2020-11-21] MEDS: JUVEN Smoothie Arginine/Glut./Ca2+Bmb (Juven 19.3pkt) 240ml cup PO SCH ×2 (08:00→20:28)
[2020-11-21 11:00] VITALS: BP 99/57
--- NOTE | 2020-11-21 18:17 | NUR ---
Patient in room [facility] 350. I have received report from BRIANNA GOMEZ and had the opportunity to ask questions and assume patient care. Addendum: 11/21/20 at 1818 by Nancy Galvez RN Amended: Links added.
[2020-11-21 19:00] VITALS: BP 120/74
--- NOTE | 2020-11-22 00:15 | NUR ---
resting eyes closed without changes.
[2020-11-22 00:30] VITALS: BP 141/77
--- NOTE | 2020-11-22 06:05 | NUR ---
Problems reprioritized. Patient report given, questions answered & plan of care reviewed with MUNIRA GOMEZ. Addendum: 11/22/20 at 0605 by Nancy Galvez RN Amended: Links added.
--- NOTE | 2020-11-22 06:11 | NUR ---
Problems reprioritized. Patient report given, questions answered & plan of care reviewed with MUNIRA GOMEZ. Addendum: 11/22/20 at 0618 by Nancy Galvez RN Amended: Links added.
--- NOTE | 2020-11-22 06:15 | NUR ---
Problems reprioritized. Patient report given, questions answered & plan of care reviewed with SCOUT GOMEZ. Addendum: 11/22/20 at 0618 by Nancy Galvez RN Amended: Links added.
[2020-11-22 08:00] VITALS: BP 131/76
[2020-11-22] MEDS ORDERED: EPOETIN ALFA-EPBX 20,000 UNIT/ML 1 ML MDV IV ONE (08:00)
[2020-11-22] MEDS ORDERED: heparin 1,000 units/ml 10ml inj HE ONE ×2 (08:00)
[2020-11-22] MEDS ORDERED: normal saline 1000ml 100 ML IV PRN (08:00)
[2020-11-22] MEDS ORDERED: normal saline 1000ml 250 ML IV PRN (08:00)
[2020-11-22] MEDS: sennosides/docusate sodium tablet PO SCH ×2 (08:51→20:00)
[2020-11-22] MEDS: lactobacillus rhamnosus 10,000 MMU CELLS/CAPSULE PO SCH ×2 (08:51→19:58)
[2020-11-22] MEDS: sevelamer carbonate 800mg tablet PO SCH ×3 (08:51→18:11)
[2020-11-22] MEDS: sulfamethoxazole/trimethoprim DS (800/160mg) tablet PO SCH ×2 (08:51→19:59)
[2020-11-22] MEDS: pantoprazole 40mg Tablet.DR PO SCH ×2 (08:51→19:59)
[2020-11-22] MEDS: JUVEN Smoothie Arginine/Glut./Ca2+Bmb (Juven 19.3pkt) 240ml cup PO SCH ×2 (08:52→20:00)
[2020-11-22] MEDS: QUEtiapine 25mg tablet PO SCH ×2 (08:52→19:58)
[2020-11-22 12:00] VITALS: BP 98/65
--- NOTE | 2020-11-22 16:55 | NUR ---
F/u: Pt PO 100% avg meals w/ ~50% vanilla Jaydon shake ONS BIDBD meeting needs. LBM 11/21. No nutrition intervention at this time. Will continue to monitor. Recommendations: 1) Continue renal diet with fluid restriction per MD; double eggs WB 2) Vanilla Jaydon shake BIDBD for wound healing needs per pt preference 3) Phos binder with meals 4) Routine bowel care 5) Scaled wts with HD Addendum: 11/22/20 at [address] Amended: Links added.
--- NOTE | 2020-11-22 18:51 | NUR ---
Problems reprioritized. Patient report given, questions answered & plan of care reviewed with Shannon GOMEZ.
[2020-11-22 19:00] VITALS: BP 130/73
--- NOTE | 2020-11-22 19:01 | NUR ---
Patient in room [facility] 350. I have received report from Laura GOMEZ and had the opportunity to ask questions and assume patient care.
[2020-11-23] VITALS: BP 124/68
--- NOTE | 2020-11-23 06:30 | NUR ---
Problems reprioritized. Patient report given, questions answered & plan of care reviewed with Rachel GOMEZ.
[2020-11-23 07:00] VITALS: BP 144/82
[2020-11-23] MEDS: JUVEN Smoothie Arginine/Glut./Ca2+Bmb (Juven 19.3pkt) 240ml cup PO SCH ×2 (08:00→20:00)
[2020-11-23] MEDS: sennosides/docusate sodium tablet PO SCH ×2 (08:00→20:00)
[2020-11-23 08:38] LABS: HBSAG SCREEN Negative (Negative)
[2020-11-23] MEDS: sulfamethoxazole/trimethoprim DS (800/160mg) tablet PO SCH ×2 (09:38→19:54)
[2020-11-23] MEDS: sevelamer carbonate 800mg tablet PO SCH ×3 (09:38→17:55)
[2020-11-23] MEDS: QUEtiapine 25mg tablet PO SCH ×2 (09:39→19:54)
[2020-11-23] MEDS: lactobacillus rhamnosus 10,000 MMU CELLS/CAPSULE PO SCH ×2 (09:39→20:00)
[2020-11-23] MEDS: pantoprazole 40mg Tablet.DR PO SCH ×2 (09:40→19:54)
[2020-11-23 12:00] VITALS: BP 97/66
--- NOTE | 2020-11-23 19:13 | NUR ---
Problems reprioritized. Patient report given, questions answered & plan of care reviewed with Arminda Azul RN.
[2020-11-23 20:00] VITALS: BP 140/70
[2020-11-24] VITALS: BP 141/81
--- NOTE | 2020-11-24 06:30 | NUR ---
Problems reprioritized. Patient report given, questions answered & plan of care reviewed with Josy Lu RN.
--- NOTE | 2020-11-24 06:45 | NUR ---
Patient in room TAMAR 350. I have received report from Arminda GOMEZ and had the opportunity to ask questions and assume patient care.
[2020-11-24 07:00] VITALS: BP 140/58
[2020-11-24] MEDS: QUEtiapine 25mg tablet PO SCH ×2 (07:12→20:00)
[2020-11-24] MEDS: lactobacillus rhamnosus 10,000 MMU CELLS/CAPSULE PO SCH ×2 (07:12→20:00)
[2020-11-24] MEDS: pantoprazole 40mg Tablet.DR PO SCH ×2 (07:12→20:00)
[2020-11-24] MEDS: sulfamethoxazole/trimethoprim DS (800/160mg) tablet PO SCH ×2 (07:12→20:00)
[2020-11-24] MEDS: sennosides/docusate sodium tablet PO SCH ×2 (07:13→20:00)
[2020-11-24] MEDS ORDERED: heparin 1,000unit/ml 10ml vial 10 ML IV ONE (08:00)
[2020-11-24] MEDS ORDERED: heparin 1,000 units/ml 10ml inj HE ONE ×2 (08:00)
[2020-11-24] MEDS ORDERED: normal saline 1000ml 250 ML IV PRN (08:00)
[2020-11-24] MEDS ORDERED: EPOETIN ALFA-EPBX 20,000 UNIT/ML 1 ML MDV IV ONE (08:00)
[2020-11-24] MEDS: sevelamer carbonate 800mg tablet PO SCH ×3 (08:17→18:10)
[2020-11-24 08:24] LABS: BASOPHILS # (AUTO) 0.1 X10'3 (0-0.2); BASOPHILS % (AUTO) 0.9 % (0-1); EOSINOPHILS # (AUTO) 0.2 X10'3 (0-0.9); EOSINOPHILS % (AUTO) 4.2 % (0-6); HEMATOCRIT 29.1 % (42.0-52.0); HEMOGLOBIN 9.7 g/dl (14.0-17.9); LYMPHOCYTES # (AUTO) 2.4 X10'3 (1.1-4.8); LYMPHOCYTES % (AUTO) 40.5 % (21-51); MEAN CORPUSCULAR HGB CONC 33.5 g/dL (33.0-36.5); MEAN CORPUSCULAR VOLUME 95.5 FL (78-98); MEAN PLATELET VOLUME 6.2 FL (7.4-10.4); MONOCYTES # (AUTO) 0.6 X10'3 (0-0.9); MONOCYTES % (AUTO) 9.8 % (2-12); NEUTROPHILS # (AUTO) 2.6 X10'3 (1.8-7.7); NEUTROPHILS % (AUTO) 44.6 % (42-75); PLATELET COUNT 259 X10'3 (140-440); RED BLOOD COUNT 3.05 X10'6 (4.70-6.10); RED CELL DISTRIBUTION WIDTH 19.6 % (11.5-14.5); WHITE BLOOD COUNT 5.9 X10'3 (4.5-11.0)
[2020-11-24] MEDS: JUVEN Smoothie Arginine/Glut./Ca2+Bmb (Juven 19.3pkt) 240ml cup PO SCH ×2 (08:46→09:46)
[2020-11-24 11:00] VITALS: BP 96/63
--- NOTE | 2020-11-24 11:39 | NUR ---
patient is for diaylsis today. Am care given. will continue to monitor
--- NOTE | 2020-11-24 18:30 | NUR ---
Patient in room [facility] 350. I have received report from PATRICIA Saxena and had the opportunity to ask questions and assume patient care.
--- NOTE | 2020-11-24 18:49 | NUR ---
1.5 litres removed per taproom attendant sue. Wound care done. no further complaints. report given to Saniya GOMEZ
[2020-11-24 19:43] VITALS: BP 149/64
[2020-11-25 00:16] VITALS: BP 148/72
--- NOTE | 2020-11-25 00:27 | NUR ---
Problems reprioritized. Patient report given, questions answered & plan of care reviewed with PATRICIA Hilliard.
--- NOTE | 2020-11-25 06:11 | NUR ---
Patient in room [facility] 350. I have received report from kayla GOMEZ and had the opportunity to ask questions and assume patient care.
[2020-11-25 07:00] VITALS: BP 142/85
[2020-11-25] MEDS: sennosides/docusate sodium tablet PO SCH ×2 (08:00→19:11)
[2020-11-25] MEDS: sulfamethoxazole/trimethoprim DS (800/160mg) tablet PO SCH ×2 (08:26→19:10)
[2020-11-25] MEDS: sevelamer carbonate 800mg tablet PO SCH ×3 (08:27→18:10)
[2020-11-25] MEDS: lactobacillus rhamnosus 10,000 MMU CELLS/CAPSULE PO SCH ×2 (08:27→19:10)
[2020-11-25] MEDS: QUEtiapine 25mg tablet PO SCH ×2 (08:27→19:11)
[2020-11-25] MEDS: pantoprazole 40mg Tablet.DR PO SCH ×2 (08:27→19:10)
[2020-11-25] MEDS: JUVEN Smoothie Arginine/Glut./Ca2+Bmb (Juven 19.3pkt) 240ml cup PO SCH ×2 (08:31→20:00)
[2020-11-25 11:00] VITALS: BP 135/75
[2020-11-25 18:00] VITALS: BP 150/89
--- NOTE | 2020-11-25 18:27 | NUR ---
I have received report from PATRICIA Ferris and had the opportunity to ask questions and assume patient care.
--- NOTE | 2020-11-25 18:35 | NUR ---
All cares given wound care to right stump and left foot done. patient not c/o pain. Resting comfortably report given to alondra GOMEZ
--- NOTE | 2020-11-26 00:12 | NUR ---
Patient refused 0000 vitals Addendum: 11/26/20 at 0012 by David Hoff RN Amended: Links added.
--- NOTE | 2020-11-26 06:26 | NUR ---
Problems reprioritized. Patient report given, questions answered & plan of care reviewed with PATRICIA Howard.
--- NOTE | 2020-11-26 06:36 | NUR ---
Patient in room [facility] 348. I have received report from David GOMEZ and had the opportunity to ask questions and assume patient care.
[2020-11-26 07:15] VITALS: BP 147/94
[2020-11-26] MEDS: sennosides/docusate sodium tablet PO SCH ×2 (08:00→20:48)
[2020-11-26] MEDS: lactobacillus rhamnosus 10,000 MMU CELLS/CAPSULE PO SCH ×2 (08:35→20:48)
[2020-11-26] MEDS: sevelamer carbonate 800mg tablet PO SCH ×3 (08:36→17:58)
[2020-11-26] MEDS: sulfamethoxazole/trimethoprim DS (800/160mg) tablet PO SCH ×2 (08:36→20:48)
[2020-11-26] MEDS: QUEtiapine 25mg tablet PO SCH ×2 (08:36→20:48)
[2020-11-26] MEDS: pantoprazole 40mg Tablet.DR PO SCH ×2 (08:36→20:48)
[2020-11-26] MEDS: JUVEN Smoothie Arginine/Glut./Ca2+Bmb (Juven 19.3pkt) 240ml cup PO SCH ×2 (08:41→19:12)
[2020-11-26 11:00] VITALS: BP 128/74
[2020-11-26 11:17] LABS: BASOPHILS % (AUTO) 0.6 % (0-1); EOSINOPHILS # (AUTO) 0.2 X10'3 (0-0.9); EOSINOPHILS % (AUTO) 3.4 % (0-6); HEMATOCRIT 28.9 % (42.0-52.0); HEMOGLOBIN 9.7 g/dl (14.0-17.9); LYMPHOCYTES # (AUTO) 1.9 X10'3 (1.1-4.8); LYMPHOCYTES % (AUTO) 36.1 % (21-51); MEAN CORPUSCULAR HEMOGLOBIN 32.1 PG (27.0-31.0); MEAN CORPUSCULAR HGB CONC 33.5 g/dL (33.0-36.5); MEAN CORPUSCULAR VOLUME 95.7 FL (78-98); MEAN PLATELET VOLUME 6.1 FL (7.4-10.4); MONOCYTES # (AUTO) 0.6 X10'3 (0-0.9); NEUTROPHILS # (AUTO) 2.6 X10'3 (1.8-7.7); NEUTROPHILS % (AUTO) 48.9 % (42-75); PLATELET COUNT 246 X10'3 (140-440); RED BLOOD COUNT 3.02 X10'6 (4.70-6.10); RED CELL DISTRIBUTION WIDTH 19.5 % (11.5-14.5); WHITE BLOOD COUNT 5.3 X10'3 (4.5-11.0)
[2020-11-26] MEDS ORDERED: heparin 1,000unit/ml 10ml vial 10 ML IV ONE (14:25)
[2020-11-26] MEDS ORDERED: heparin 1,000 units/ml 10ml inj HE ONE ×2 (14:25)
[2020-11-26] MEDS ORDERED: normal saline 1000ml 250 ML IV PRN (14:25)
[2020-11-26] MEDS ORDERED: albumin (human) 25% 100ml IV 100 ML IV PRN (14:25)
[2020-11-26] MEDS ORDERED: EPOETIN ALFA-EPBX 20,000 UNIT/ML 1 ML MDV IV ONE (14:25)
--- NOTE | 2020-11-26 18:21 | NUR ---
Problems reprioritized. Patient report given, questions answered & plan of care reviewed with Prudence RN.
[2020-11-26 18:30] VITALS: BP 128/78
--- NOTE | 2020-11-26 18:34 | NUR ---
Patient in room [facility] 350. I have received report from ALEX GOMEZ and had the opportunity to ask questions and assume patient care.
[2020-11-27 00:30] VITALS: BP 131/75
--- NOTE | 2020-11-27 06:14 | NUR ---
Problems reprioritized. Patient report given, questions answered & plan of care reviewed with PRUDENCE RN.
--- NOTE | 2020-11-27 06:20 | NUR ---
Problems reprioritized. Patient report given, questions answered & plan of care reviewed with ALEX RN.
[2020-11-27] MEDS: sulfamethoxazole/trimethoprim DS (800/160mg) tablet PO SCH ×2 (07:39→19:40)
[2020-11-27] MEDS: QUEtiapine 25mg tablet PO SCH ×2 (07:40→19:40)
[2020-11-27] MEDS: pantoprazole 40mg Tablet.DR PO SCH ×2 (07:40→19:40)
[2020-11-27] MEDS: lactobacillus rhamnosus 10,000 MMU CELLS/CAPSULE PO SCH ×2 (07:40→19:40)
[2020-11-27] MEDS: sevelamer carbonate 800mg tablet PO SCH ×3 (07:41→17:45)
--- NOTE | 2020-11-27 07:49 | NUR ---
Patient refused glucose shot, but wanted to have orange juice instead. Will recheck the blood glucose at 0810
[2020-11-27 08:00] VITALS: BP 129/67
[2020-11-27] MEDS: sennosides/docusate sodium tablet PO SCH ×2 (08:00→19:40)
[2020-11-27] MEDS: JUVEN Smoothie Arginine/Glut./Ca2+Bmb (Juven 19.3pkt) 240ml cup PO SCH ×2 (08:34→19:42)
[2020-11-27 11:58] VITALS: BP 92/60
[2020-11-27 18:00] VITALS: BP 129/75
--- NOTE | 2020-11-27 18:14 | NUR ---
Problems reprioritized. Patient report given, questions answered & plan of care reviewed with MARILOU GOMEZ.
--- NOTE | 2020-11-27 18:45 | NUR ---
Problems reprioritized. Patient report given, questions answered & plan of care reviewed with PATRICIA JOHNSON.
--- NOTE | 2020-11-27 23:21 | NUR ---
Problems reprioritized. Patient report given, questions answered & plan of care reviewed with PATRICIA CRUZ.
--- NOTE | 2020-11-27 23:35 | NUR ---
Received report from Domonique GOMEZ. Questions asked and answered. Hourly rounds initiated, no needs expressed at this time. Lying on L side, repositions self as desired.
--- NOTE | 2020-11-28 00:05 | NUR ---
Have read and agree w/ assessment of Domonique GOMEZ. I have completed my own assessment early in the shift and will continue now w/ patient care.
--- NOTE | 2020-11-28 06:20 | NUR ---
Report given to Kassy GOMEZ. Questions asked and answered, Care of patient assumed by Kassy GOMEZ
[2020-11-28 07:00] VITALS: BP 137/74
[2020-11-28] MEDS: JUVEN Smoothie Arginine/Glut./Ca2+Bmb (Juven 19.3pkt) 240ml cup PO SCH ×3 (07:54→22:45)
[2020-11-28] MEDS: QUEtiapine 25mg tablet PO SCH ×2 (07:54→19:33)
[2020-11-28] MEDS: pantoprazole 40mg Tablet.DR PO SCH ×2 (07:54→19:33)
[2020-11-28] MEDS: sulfamethoxazole/trimethoprim DS (800/160mg) tablet PO SCH ×2 (07:54→19:30)
[2020-11-28] MEDS: sevelamer carbonate 800mg tablet PO SCH ×3 (07:54→17:38)
[2020-11-28] MEDS: lactobacillus rhamnosus 10,000 MMU CELLS/CAPSULE PO SCH ×2 (07:54→19:30)
[2020-11-28] MEDS: sennosides/docusate sodium tablet PO SCH ×2 (07:55→19:33)
[2020-11-28 08:04] LABS: ALANINE AMINOTRANSFERASE 6 U/L (12-78); ALBUMIN 2.4 G/DL (3.4-5.0); ALBUMIN/GLOBULIN RATIO 0.4 (1.1-1.5); ALKALINE PHOSPHATASE 75 IU/L (46-116); ANION GAP 14 (8-16); ASPARTATE AMINO TRANSFERASE 12 U/L (10-37); BILIRUBIN,TOTAL 0.4 MG/DL (0.1-1.0); BLOOD UREA NITROGEN 39 MG/DL (7-18); BUN/CREATININE RATIO 6.2 (5.4-32.0); CALCIUM 8.7 MG/DL (8.5-10.1); CHLORIDE 101 MMOL/L (99-107); CREATININE 6.33 MG/DL (0.60-1.10); GLUCOSE 73 MG/DL (70-104); MAGNESIUM 2.3 MG/DL (1.5-2.4); POTASSIUM 4.5 MMOL/L (3.5-5.1); SODIUM 138 MMOL/L (135-145); TOTAL CARBON DIOXIDE 22.9 MMOL/L (24-32); TOTAL PROTEIN 8.1 G/DL (6.4-8.2); eGFR 11 ML/MIN
[2020-11-28 11:00] VITALS: BP 153/88
--- NOTE | 2020-11-28 18:00 | NUR ---
recieved report from Kassy GOMEZ. Questions asked and answered and will assume care at this time
--- NOTE | 2020-11-28 18:00 | NUR ---
Received report from Kassy GOMEZ. Questions asked and answered and will assume patient care at this time
--- NOTE | 2020-11-28 18:23 | NUR ---
Problems reprioritized. Patient report given, questions answered & plan of care reviewed with Dipika GOMEZ.
[2020-11-28 19:00] VITALS: BP 150/89
[2020-11-29 00:05] VITALS: BP 155/86
--- NOTE | 2020-11-29 06:18 | NUR ---
Report given to Kassy GOMEZ. Questions asked and answered, care of patient assumed by Kassy GOMEZ
[2020-11-29 07:00] VITALS: BP 141/85
[2020-11-29] MEDS ORDERED: heparin 1,000unit/ml 10ml vial 10 ML IV ONE (08:00)
[2020-11-29] MEDS ORDERED: normal saline 1000ml 250 ML IV PRN (08:00)
[2020-11-29] MEDS ORDERED: EPOETIN ALFA-EPBX 20,000 UNIT/ML 1 ML MDV IV ONE (08:00)
[2020-11-29] MEDS ORDERED: heparin 1,000 units/ml 10ml inj HE ONE ×2 (08:00)
[2020-11-29] MEDS: lactobacillus rhamnosus 10,000 MMU CELLS/CAPSULE PO SCH ×2 (08:41→19:51)
[2020-11-29] MEDS: sevelamer carbonate 800mg tablet PO SCH ×3 (08:42→17:30)
[2020-11-29] MEDS: QUEtiapine 25mg tablet PO SCH ×2 (08:42→19:51)
[2020-11-29] MEDS: sennosides/docusate sodium tablet PO SCH ×2 (08:42→19:51)
[2020-11-29] MEDS: JUVEN Smoothie Arginine/Glut./Ca2+Bmb (Juven 19.3pkt) 240ml cup PO SCH ×2 (08:42→20:00)
[2020-11-29] MEDS: sulfamethoxazole/trimethoprim DS (800/160mg) tablet PO SCH ×2 (08:42→19:51)
[2020-11-29] MEDS: pantoprazole 40mg Tablet.DR PO SCH ×2 (08:42→19:51)
[2020-11-29 13:07] LABS: BASOPHILS % (AUTO) 0.7 % (0-1); EOSINOPHILS # (AUTO) 0.2 X10'3 (0-0.9); EOSINOPHILS % (AUTO) 3.6 % (0-6); HEMATOCRIT 27.5 % (42.0-52.0); HEMOGLOBIN 9.1 g/dl (14.0-17.9); LYMPHOCYTES % (AUTO) 39.5 % (21-51); MEAN PLATELET VOLUME 6.3 FL (7.4-10.4); MONOCYTES # (AUTO) 0.6 X10'3 (0-0.9); MONOCYTES % (AUTO) 11.8 % (2-12); NEUTROPHILS # (AUTO) 2.2 X10'3 (1.8-7.7); NEUTROPHILS % (AUTO) 44.4 % (42-75); PLATELET COUNT 247 X10'3 (140-440); RED BLOOD COUNT 2.84 X10'6 (4.70-6.10); RED CELL DISTRIBUTION WIDTH 19.7 % (11.5-14.5)
[2020-11-29 13:27] VITALS: BP 143/78
[2020-11-29 14:48] LABS: PLATELET ESTIMATE NORMAL
[2020-11-29 14:49] LABS: ANISOCYTOSIS 2+
--- NOTE | 2020-11-29 18:38 | NUR ---
Problems reprioritized. Patient report given, questions answered & plan of care reviewed with Jillian GOMEZ.
[2020-11-29 19:00] VITALS: BP 122/67
[2020-11-29 23:00] VITALS: BP 89/47
--- NOTE | 2020-11-30 00:05 | NUR ---
Report received from Jillian GOMEZ. Pt requesting snack, crackers and juice given. Continues to watch TV. Questions asked and answered, care of patient assumed by myself
--- NOTE | 2020-11-30 00:25 | NUR ---
Problems reprioritized. Patient report given, questions answered & plan of care reviewed with Dipika GOMEZ.
--- NOTE | 2020-11-30 06:10 | NUR ---
Patient in room [facility] 350. I have received report from PATRICIA Bar and had the opportunity to ask questions and assume patient care.
--- NOTE | 2020-11-30 06:44 | NUR ---
Report given to Saniya GOMEZ. questions asked and answered, care of patient assumed by Saniya at this time
--- NOTE | 2020-11-30 06:47 | NUR ---
a restful am. no requests for pain meds, sleeps and repositions as desired.
[2020-11-30 07:00] VITALS: BP 104/60
[2020-11-30 07:46] VITALS: BP 104/60
[2020-11-30] MEDS: sennosides/docusate sodium tablet PO SCH ×2 (08:12→19:10)
[2020-11-30] MEDS: lactobacillus rhamnosus 10,000 MMU CELLS/CAPSULE PO SCH ×2 (08:12→19:10)
[2020-11-30] MEDS: pantoprazole 40mg Tablet.DR PO SCH ×2 (08:12→19:09)
[2020-11-30] MEDS: sevelamer carbonate 800mg tablet PO SCH ×3 (08:12→19:09)
[2020-11-30] MEDS: QUEtiapine 25mg tablet PO SCH ×2 (08:12→19:10)
[2020-11-30] MEDS: sulfamethoxazole/trimethoprim DS (800/160mg) tablet PO SCH ×2 (08:12→19:10)
[2020-11-30] MEDS: JUVEN Smoothie Arginine/Glut./Ca2+Bmb (Juven 19.3pkt) 240ml cup PO SCH ×2 (08:13→19:11)
[2020-11-30 11:00] VITALS: BP 117/75
[2020-11-30 18:00] VITALS: BP 116/68
--- NOTE | 2020-11-30 18:10 | NUR ---
Patient in room [facility] 350. I have received report from Saniya GOMEZ and had the opportunity to ask questions and assume patient care.
--- NOTE | 2020-11-30 18:30 | NUR ---
Problems reprioritized. Patient report given, questions answered & plan of care reviewed with PATRICIA Sanchez.
[2020-12-01 00:17] VITALS: BP 109/66
--- NOTE | 2020-12-01 06:17 | NUR ---
Problems reprioritized. Patient report given, questions answered & plan of care reviewed with Jillian GOMEZ.
[2020-12-01 07:00] VITALS: BP 106/55
--- NOTE | 2020-12-01 07:17 | NUR ---
Patient in room [facility] 350. I have received report from Laura GOMEZ and had the opportunity to ask questions and assume patient care.
[2020-12-01] MEDS: JUVEN Smoothie Arginine/Glut./Ca2+Bmb (Juven 19.3pkt) 240ml cup PO SCH ×2 (08:00→19:45)
[2020-12-01] MEDS ORDERED: heparin 1,000unit/ml 10ml vial 10 ML IV ONE (08:55)
[2020-12-01] MEDS ORDERED: EPOETIN ALFA-EPBX 20,000 UNIT/ML 1 ML MDV IV ONE (08:55)
[2020-12-01] MEDS ORDERED: heparin 1,000 units/ml 10ml inj HE ONE ×2 (09:00)
[2020-12-01] MEDS: sennosides/docusate sodium tablet PO SCH ×2 (09:09→19:45)
[2020-12-01] MEDS: sulfamethoxazole/trimethoprim DS (800/160mg) tablet PO SCH ×2 (09:09→19:38)
[2020-12-01] MEDS: QUEtiapine 25mg tablet PO SCH ×2 (09:09→19:37)
[2020-12-01] MEDS: lactobacillus rhamnosus 10,000 MMU CELLS/CAPSULE PO SCH ×2 (09:09→19:37)
[2020-12-01] MEDS: sevelamer carbonate 800mg tablet PO SCH ×3 (09:09→17:57)
[2020-12-01] MEDS: pantoprazole 40mg Tablet.DR PO SCH ×2 (09:09→19:37)
--- NOTE | 2020-12-01 09:31 | NUR ---
Reassessment: Pt continues eating well with average 75-100% PO intake on renal diet and receiving double eggs WB. Pt with fluctuating PO intake of Jaydon shake BIDLD though overall averaging 75% PO intake of ONS. Pt meeting estimated nutrient needs at this time. LBM 11/28, receiving routine bowel care. No further nutrition intervention implemented at this time. Will continue to follow. Recommendations: 1) Continue renal diet with fluid restriction per MD; double eggs WB 2) Vanilla Jaydon shake BIDBD for wound healing needs per pt preference 3) Phos binder with meals 4) Routine bowel care 5) Scaled wts with HD Addendum: 12/01/20 at [address] Amended: Links added.
[2020-12-01 11:00] VITALS: BP 134/84
[2020-12-01 11:15] LABS: BASOPHILS % (AUTO) 0.6 % (0-1); EOSINOPHILS # (AUTO) 0.2 X10'3 (0-0.9); EOSINOPHILS % (AUTO) 2.9 % (0-6); HEMATOCRIT 27.4 % (42.0-52.0); LYMPHOCYTES % (AUTO) 34.2 % (21-51); MEAN CORPUSCULAR HEMOGLOBIN 31.8 PG (27.0-31.0); MEAN CORPUSCULAR HGB CONC 32.7 g/dL (33.0-36.5); MEAN CORPUSCULAR VOLUME 97.2 FL (78-98); MEAN PLATELET VOLUME 6.3 FL (7.4-10.4); MONOCYTES # (AUTO) 0.7 X10'3 (0-0.9); MONOCYTES % (AUTO) 12.6 % (2-12); NEUTROPHILS # (AUTO) 2.9 X10'3 (1.8-7.7); NEUTROPHILS % (AUTO) 49.7 % (42-75); PLATELET COUNT 248 X10'3 (140-440); RED BLOOD COUNT 2.82 X10'6 (4.70-6.10); RED CELL DISTRIBUTION WIDTH 19.9 % (11.5-14.5); WHITE BLOOD COUNT 5.8 X10'3 (4.5-11.0)
[2020-12-01 12:47] LABS: ANISOCYTOSIS 2+; PLATELET ESTIMATE NORMAL
--- NOTE | 2020-12-01 18:44 | NUR ---
Problems reprioritized. Patient report given, questions answered & plan of care reviewed with Arminda GOMEZ.
[2020-12-01 20:00] VITALS: BP 106/55
[2020-12-02] MEDS: sulfamethoxazole/trimethoprim DS (800/160mg) tablet PO SCH ×2 (08:04→20:36)
[2020-12-02] MEDS: pantoprazole 40mg Tablet.DR PO SCH ×2 (08:04→20:36)
[2020-12-02] MEDS: lactobacillus rhamnosus 10,000 MMU CELLS/CAPSULE PO SCH ×2 (08:04→20:36)
[2020-12-02] MEDS: sennosides/docusate sodium tablet PO SCH ×2 (08:04→20:36)
[2020-12-02] MEDS: QUEtiapine 25mg tablet PO SCH ×2 (08:05→20:36)
[2020-12-02] MEDS: sevelamer carbonate 800mg tablet PO SCH ×3 (08:05→17:48)
[2020-12-02 08:06] VITALS: BP 102/56
[2020-12-02] MEDS: JUVEN Smoothie Arginine/Glut./Ca2+Bmb (Juven 19.3pkt) 240ml cup PO SCH ×2 (08:06→20:40)
--- NOTE | 2020-12-02 10:44 | NUR ---
PAGER ID: [phone] MESSAGE: Saulo with wound [phone] please call re; Roshan Lara [phone]
--- NOTE | 2020-12-02 10:54 | NUR ---
Suture to right back DC'd per written orders, covered with bandaid. Pt tolerated well.
[2020-12-02 11:00] VITALS: BP 141/94
--- NOTE | 2020-12-02 18:24 | NUR ---
Problems reprioritized. Patient report given, questions answered & plan of care reviewed with Bunny GOMEZ.
--- NOTE | 2020-12-02 18:49 | NUR ---
Patient in room [facility] 350. I have received report from Jillian GOMEZ and had the opportunity to ask questions and assume patient care.
[2020-12-02 19:38] VITALS: BP 146/80
[2020-12-02 23:30] VITALS: BP 134/76
--- NOTE | 2020-12-03 06:53 | NUR ---
Patient in room [facility] 350. I have received report from Bunny GOMEZ and had the opportunity to ask questions and assume patient care.
[2020-12-03 08:00] VITALS: BP 139/80
[2020-12-03] MEDS ORDERED: heparin 1,000unit/ml 10ml vial 10 ML IV ONE (08:00)
[2020-12-03] MEDS ORDERED: normal saline 1000ml 250 ML IV PRN (08:00)
[2020-12-03] MEDS ORDERED: EPOETIN ALFA-EPBX 20,000 UNIT/ML 1 ML MDV IV ONE (08:00)
[2020-12-03] MEDS ORDERED: heparin 1,000 units/ml 10ml inj HE ONE ×2 (08:00)
[2020-12-03] MEDS: sevelamer carbonate 800mg tablet PO SCH ×3 (08:25→17:47)
[2020-12-03] MEDS: pantoprazole 40mg Tablet.DR PO SCH ×2 (08:25→20:19)
[2020-12-03] MEDS: sulfamethoxazole/trimethoprim DS (800/160mg) tablet PO SCH ×2 (08:25→20:21)
[2020-12-03] MEDS: sennosides/docusate sodium tablet PO SCH ×2 (08:26→20:19)
[2020-12-03] MEDS: QUEtiapine 25mg tablet PO SCH ×2 (08:26→20:21)
[2020-12-03] MEDS: JUVEN Smoothie Arginine/Glut./Ca2+Bmb (Juven 19.3pkt) 240ml cup PO SCH ×2 (08:26→20:00)
[2020-12-03] MEDS: lactobacillus rhamnosus 10,000 MMU CELLS/CAPSULE PO SCH ×2 (08:26→20:18)
[2020-12-03 08:47] LABS: HBSAG SCREEN Negative (Negative); HEP B CORE AB, TOT Negative (Negative)
[2020-12-03 09:40] LABS: BASOPHILS % (AUTO) 0.5 % (0-1); EOSINOPHILS # (AUTO) 0.2 X10'3 (0-0.9); EOSINOPHILS % (AUTO) 3.9 % (0-6); HEMOGLOBIN 9.3 g/dl (14.0-17.9); LYMPHOCYTES # (AUTO) 1.8 X10'3 (1.1-4.8); LYMPHOCYTES % (AUTO) 34.4 % (21-51); MEAN CORPUSCULAR HEMOGLOBIN 32.5 PG (27.0-31.0); MEAN CORPUSCULAR HGB CONC 33.2 g/dL (33.0-36.5); MEAN CORPUSCULAR VOLUME 97.8 FL (78-98); MEAN PLATELET VOLUME 6.3 FL (7.4-10.4); MONOCYTES # (AUTO) 0.6 X10'3 (0-0.9); MONOCYTES % (AUTO) 11.5 % (2-12); NEUTROPHILS # (AUTO) 2.6 X10'3 (1.8-7.7); NEUTROPHILS % (AUTO) 49.7 % (42-75); PLATELET COUNT 234 X10'3 (140-440); RED BLOOD COUNT 2.86 X10'6 (4.70-6.10); RED CELL DISTRIBUTION WIDTH 20.2 % (11.5-14.5); WHITE BLOOD COUNT 5.2 X10'3 (4.5-11.0)
[2020-12-03 10:28] LABS: PLATELET ESTIMATE NORMAL
[2020-12-03 10:29] LABS: ANISOCYTOSIS 3+
[2020-12-03 18:00] VITALS: BP 108/62
--- NOTE | 2020-12-03 18:45 | NUR ---
patient had dialysis today 2 L removed. see dialysis note. wound dressing done. report given to juma GOMEZ
--- NOTE | 2020-12-03 18:50 | NUR ---
Patient in room TAMAR 350. I have received report from Josy GOMEZ and had the opportunity to ask questions and assume patient care.
--- NOTE | 2020-12-03 23:18 | NUR ---
Earlier when passing meds, pt. stated that his left foot was hurting. However, when offered liquid tylenol, patient refused to take it.
[2020-12-04 00:50] VITALS: BP 113/71
--- NOTE | 2020-12-04 06:29 | NUR ---
Problems reprioritized. Patient report given, questions answered & plan of care reviewed with Josy GOMEZ.
--- NOTE | 2020-12-04 06:56 | NUR ---
Patient in room [facility]AM[facility] 350. I have received report from Noam kenney and had the opportunity to ask questions and assume patient care.
[2020-12-04 06:59] VITALS: BP 112/78
[2020-12-04] MEDS: JUVEN Smoothie Arginine/Glut./Ca2+Bmb (Juven 19.3pkt) 240ml cup PO SCH ×2 (08:15→20:14)
[2020-12-04] MEDS: sulfamethoxazole/trimethoprim DS (800/160mg) tablet PO SCH ×2 (08:19→19:56)
[2020-12-04] MEDS: QUEtiapine 25mg tablet PO SCH ×2 (08:19→19:56)
[2020-12-04] MEDS: lactobacillus rhamnosus 10,000 MMU CELLS/CAPSULE PO SCH ×2 (08:19→19:56)
[2020-12-04] MEDS: pantoprazole 40mg Tablet.DR PO SCH ×2 (08:19→19:56)
[2020-12-04] MEDS: sennosides/docusate sodium tablet PO SCH ×2 (08:19→19:56)
[2020-12-04] MEDS: sevelamer carbonate 800mg tablet PO SCH ×3 (08:19→17:45)
[2020-12-04 11:00] VITALS: BP 104/52
--- NOTE | 2020-12-04 16:52 | NUR ---
wound to left foot appears to have odor. Dr Kimball aware, order given for 1/4 strength dakins wet to dry BID. Patient awaiting DR Kimball to view wound.
[2020-12-04 18:30] VITALS: BP 120/74
--- NOTE | 2020-12-04 18:35 | NUR ---
Patient in room TAMAR 350. I have received report from Josy GOMEZ and had the opportunity to ask questions and assume patient care.
--- NOTE | 2020-12-04 18:41 | NUR ---
Problems reprioritized. Patient report given, questions answered & plan of care reviewed with Kimmie GOMEZ.
[2020-12-04] MEDS: Dakins solution (1/4 strength) 473ml solution TP SCH (19:58)
[2020-12-05] VITALS: BP 119/64
[2020-12-05 06:00] VITALS: BP 127/71
--- NOTE | 2020-12-05 06:43 | NUR ---
Problems reprioritized. Patient report given, questions answered & plan of care reviewed with Lee RN.
[2020-12-05] MEDS: Dakins solution (1/4 strength) 473ml solution TP SCH ×2 (08:00→20:30)
[2020-12-05] MEDS: JUVEN Smoothie Arginine/Glut./Ca2+Bmb (Juven 19.3pkt) 240ml cup PO SCH ×2 (08:00→20:30)
[2020-12-05] MEDS ORDERED: gentian violet 59ml topical solution TP SCH (08:10)
[2020-12-05] MEDS: lactobacillus rhamnosus 10,000 MMU CELLS/CAPSULE PO SCH ×2 (09:18→20:28)
[2020-12-05] MEDS: sulfamethoxazole/trimethoprim DS (800/160mg) tablet PO SCH ×2 (09:18→20:28)
[2020-12-05] MEDS: pantoprazole 40mg Tablet.DR PO SCH ×2 (09:19→20:28)
[2020-12-05] MEDS: sevelamer carbonate 800mg tablet PO SCH ×3 (09:19→17:36)
[2020-12-05] MEDS: QUEtiapine 25mg tablet PO SCH ×2 (09:19→20:28)
[2020-12-05] MEDS: sennosides/docusate sodium tablet PO SCH ×2 (09:19→20:28)
[2020-12-05] MEDS ORDERED: heparin 1,000 units/ml 10ml inj IV ONE (10:10)
[2020-12-05] MEDS ORDERED: heparin 1,000unit/ml 10ml vial 10 ML IV ONE (10:10)
[2020-12-05] MEDS ORDERED: heparin 1,000 units/ml 10ml inj HE ONE (10:15)
[2020-12-05 11:05] VITALS: BP 122/67
[2020-12-05 18:31] VITALS: BP 138/76
[2020-12-05 23:42] VITALS: BP 102/68
[2020-12-05 23:43] VITALS: BP 128/79
--- NOTE | 2020-12-06 01:57 | NUR ---
Patient in room [facility] 350. I have received report from PATRICIA Saxena and had the opportunity to ask questions and assume patient care.
--- NOTE | 2020-12-06 01:58 | NUR ---
Problems reprioritized. Patient report given, questions answered & plan of care reviewed with PATRICIA Goode.
--- NOTE | 2020-12-06 06:01 | NUR ---
Problems reprioritized. Patient report given, questions answered & plan of care reviewed with PATRICIA Carrasco. Addendum: 12/06/20 at 0603 by Marlee Reddy RN Problems reprioritized. Patient report given, questions answered & plan of care reviewed with PATRICIA Youssef.
--- NOTE | 2020-12-06 06:30 | NUR ---
Patient in room TAMAR 350B. I have received report from PATRICIA HUTCHINSON and had the opportunity to ask questions and assume patient care.
[2020-12-06 07:00] VITALS: BP 112/67
[2020-12-06] MEDS: JUVEN Smoothie Arginine/Glut./Ca2+Bmb (Juven 19.3pkt) 240ml cup PO SCH ×2 (08:00→20:01)
[2020-12-06] MEDS: sennosides/docusate sodium tablet PO SCH ×2 (08:00→20:02)
[2020-12-06] MEDS: lactobacillus rhamnosus 10,000 MMU CELLS/CAPSULE PO SCH ×2 (09:00→20:02)
[2020-12-06] MEDS: pantoprazole 40mg Tablet.DR PO SCH ×2 (09:00→20:03)
[2020-12-06] MEDS: sulfamethoxazole/trimethoprim DS (800/160mg) tablet PO SCH ×2 (09:00→20:03)
[2020-12-06] MEDS: QUEtiapine 25mg tablet PO SCH ×2 (09:01→20:02)
[2020-12-06] MEDS: sevelamer carbonate 800mg tablet PO SCH ×3 (09:01→17:30)
[2020-12-06] MEDS: Dakins solution (1/4 strength) 473ml solution TP SCH ×2 (09:02→20:05)
[2020-12-06] MEDS ORDERED: heparin 1,000 units/ml 10ml inj HE ONE (09:10)
[2020-12-06 09:42] LABS: BASOPHILS % (AUTO) 0.4 % (0-1); EOSINOPHILS # (AUTO) 0.1 X10'3 (0-0.9); EOSINOPHILS % (AUTO) 3.2 % (0-6); HEMATOCRIT 27.1 % (42.0-52.0); LYMPHOCYTES # (AUTO) 1.7 X10'3 (1.1-4.8); LYMPHOCYTES % (AUTO) 38.6 % (21-51); MEAN CORPUSCULAR HEMOGLOBIN 32.6 PG (27.0-31.0); MEAN CORPUSCULAR HGB CONC 33.3 g/dL (33.0-36.5); MEAN CORPUSCULAR VOLUME 98.1 FL (78-98); MEAN PLATELET VOLUME 6.1 FL (7.4-10.4); MONOCYTES # (AUTO) 0.5 X10'3 (0-0.9); NEUTROPHILS # (AUTO) 2.1 X10'3 (1.8-7.7); NEUTROPHILS % (AUTO) 46.8 % (42-75); PLATELET COUNT 214 X10'3 (140-440); RED BLOOD COUNT 2.77 X10'6 (4.70-6.10); RED CELL DISTRIBUTION WIDTH 19.7 % (11.5-14.5); WHITE BLOOD COUNT 4.5 X10'3 (4.5-11.0)
[2020-12-06 09:56] LABS: ALBUMIN 2.4 G/DL (3.4-5.0); ALBUMIN/GLOBULIN RATIO 0.4 (1.1-1.5); ALKALINE PHOSPHATASE 69 IU/L (46-116); ANION GAP 10 (8-16); ASPARTATE AMINO TRANSFERASE 13 U/L (10-37); BILIRUBIN,TOTAL 0.3 MG/DL (0.1-1.0); BLOOD UREA NITROGEN 64 MG/DL (7-18); BUN/CREATININE RATIO 7.4 (5.4-32.0); CALCIUM 8.5 MG/DL (8.5-10.1); CHLORIDE 98 MMOL/L (99-107); GLUCOSE 132 MG/DL (70-104); MAGNESIUM 2.1 MG/DL (1.5-2.4); PHOSPHORUS 4.4 MG/DL (2.3-4.5); POTASSIUM 4.6 MMOL/L (3.5-5.1); SODIUM 133 MMOL/L (135-145); TOTAL CARBON DIOXIDE 24.8 MMOL/L (24-32); TOTAL PROTEIN 8.1 G/DL (6.4-8.2); eGFR 8 ML/MIN
[2020-12-06 10:08] LABS: ALANINE AMINOTRANSFERASE < 6 U/L (12-78)
[2020-12-06 11:00] VITALS: BP 119/77
[2020-12-06 14:25] LABS: ANISOCYTOSIS 2+; PLATELET ESTIMATE NORMAL; SCHISTOCYTES FEW
[2020-12-06 18:00] VITALS: BP 115/65
--- NOTE | 2020-12-06 19:00 | NUR ---
Patient in room [facility]AM[facility] 350. I have received report from PATRICIA Youssef and had the opportunity to ask questions and assume patient care.
--- NOTE | 2020-12-06 19:24 | NUR ---
Problems reprioritized. Patient report given, questions answered & plan of care reviewed with PATRICIA HUTCHINSON.
[2020-12-07] VITALS: BP 123/64
--- NOTE | 2020-12-07 06:09 | NUR ---
Problems reprioritized. Patient report given, questions answered & plan of care reviewed with PATRICIA Echeverria.
[2020-12-07 07:19] VITALS: BP 98/47
[2020-12-07] MEDS: gentian violet 59ml topical solution TP SCH (08:00)
[2020-12-07] MEDS: Dakins solution (1/4 strength) 473ml solution TP SCH ×2 (08:00→19:26)
[2020-12-07] MEDS: JUVEN Smoothie Arginine/Glut./Ca2+Bmb (Juven 19.3pkt) 240ml cup PO SCH ×2 (08:00→19:26)
[2020-12-07 08:20] LABS: BASOPHILS % (AUTO) 0.6 % (0-1); EOSINOPHILS # (AUTO) 0.1 X10'3 (0-0.9); EOSINOPHILS % (AUTO) 2.3 % (0-6); HEMATOCRIT 31.3 % (42.0-52.0); HEMOGLOBIN 10.5 g/dl (14.0-17.9); LYMPHOCYTES # (AUTO) 2.7 X10'3 (1.1-4.8); LYMPHOCYTES % (AUTO) 45.1 % (21-51); MEAN CORPUSCULAR HEMOGLOBIN 32.4 PG (27.0-31.0); MEAN CORPUSCULAR HGB CONC 33.6 g/dL (33.0-36.5); MEAN CORPUSCULAR VOLUME 96.5 FL (78-98); MEAN PLATELET VOLUME 6.4 FL (7.4-10.4); MONOCYTES # (AUTO) 0.7 X10'3 (0-0.9); MONOCYTES % (AUTO) 12.3 % (2-12); NEUTROPHILS # (AUTO) 2.4 X10'3 (1.8-7.7); NEUTROPHILS % (AUTO) 39.7 % (42-75); PLATELET COUNT 254 X10'3 (140-440); RED BLOOD COUNT 3.25 X10'6 (4.70-6.10); RED CELL DISTRIBUTION WIDTH 20.3 % (11.5-14.5)
[2020-12-07] MEDS ORDERED: heparin 1,000 units/ml 10ml inj IV ONE (08:50)
[2020-12-07] MEDS ORDERED: heparin 1,000unit/ml 10ml vial 10 ML IV ONE (08:50)
[2020-12-07 08:54] LABS: ALBUMIN 2.7 G/DL (3.4-5.0); ALBUMIN/GLOBULIN RATIO 0.4 (1.1-1.5); ALKALINE PHOSPHATASE 82 IU/L (46-116); ANION GAP 9 (8-16); ASPARTATE AMINO TRANSFERASE 13 U/L (10-37); BILIRUBIN,TOTAL 0.3 MG/DL (0.1-1.0); BLOOD UREA NITROGEN 47 MG/DL (7-18); BUN/CREATININE RATIO 7.2 (5.4-32.0); CHLORIDE 99 MMOL/L (99-107); CREATININE 6.56 MG/DL (0.60-1.10); GLUCOSE 65 MG/DL (70-104); MAGNESIUM 2.1 MG/DL (1.5-2.4); PHOSPHORUS 4.2 MG/DL (2.3-4.5); POTASSIUM 4.6 MMOL/L (3.5-5.1); SODIUM 135 MMOL/L (135-145); TOTAL CARBON DIOXIDE 26.7 MMOL/L (24-32); TOTAL PROTEIN 9.2 G/DL (6.4-8.2); eGFR 11 ML/MIN
[2020-12-07] MEDS ORDERED: heparin 1,000 units/ml 10ml inj HE ONE (08:55)
[2020-12-07 08:56] LABS: CALCIUM 8.4 MG/DL (8.5-10.1)
[2020-12-07] MEDS: sevelamer carbonate 800mg tablet PO SCH ×3 (09:20→17:30)
[2020-12-07] MEDS: sulfamethoxazole/trimethoprim DS (800/160mg) tablet PO SCH (09:20)
[2020-12-07] MEDS: pantoprazole 40mg Tablet.DR PO SCH ×2 (09:20→20:00)
[2020-12-07] MEDS: sennosides/docusate sodium tablet PO SCH ×2 (09:20→20:00)
[2020-12-07] MEDS: lactobacillus rhamnosus 10,000 MMU CELLS/CAPSULE PO SCH ×2 (09:20→20:00)
[2020-12-07] MEDS: QUEtiapine 25mg tablet PO SCH ×2 (09:21→20:00)
[2020-12-07 09:45] LABS: ALANINE AMINOTRANSFERASE < 6 U/L (12-78)
[2020-12-07] MEDS: cefTAZidime inj. 1 GM in normal saline 100ml IV soln 100 ML IV SCH (11:00)
[2020-12-07] MEDS ORDERED: vancomycin/NS 1 GM ADD-VANTAGE 250 ML X 1 DOSE IV ONE (11:30)
[2020-12-07 12:02] VITALS: BP 117/68
--- NOTE | 2020-12-07 19:25 | NUR ---
patient feeling nauseous after dinner. does not want zofran. He wanted to take renvela and 2000 medications when he felt better. will hold them for now and reattempt to administer them when he feels better.
--- NOTE | 2020-12-07 19:28 | NUR ---
Linked Med Note: Spoke with MD, both the IV antibiotics (Fortaz && vanco) are to be given with hemodialysis. These medications will be given tomorrow with HD in the morning. Asked pharmacy to re-time the medications to be given with HD tomorrow.
[2020-12-07] MEDS: metroNIDAZOLE 500mg tablet PO SCH (20:00)
[2020-12-07 20:53] VITALS: BP 118/84
--- NOTE | 2020-12-07 23:57 | NUR ---
Problems reprioritized. Patient report given, questions answered & plan of care reviewed with PATRICIA Hilliard.
[2020-12-08] MEDS ORDERED: VANCOMYCIN LEVEL IV SCH (03:00)
--- NOTE | 2020-12-08 06:21 | NUR ---
Patient in room [facility] 350. I have received report from kayla GOMEZ and had the opportunity to ask questions and assume patient care.
[2020-12-08] MEDS ORDERED: vancomycin/NS 1 GM ADD-VANTAGE 250 ML X 1 DOSE IV PRN (06:30)
[2020-12-08] MEDS ORDERED: heparin 1,000unit/ml 10ml vial 10 ML IV ONE (07:45)
[2020-12-08 07:46] LABS: BASOPHILS % (AUTO) 0.4 % (0-1); EOSINOPHILS # (AUTO) 0.1 X10'3 (0-0.9); EOSINOPHILS % (AUTO) 2.6 % (0-6); HEMATOCRIT 31.9 % (42.0-52.0); HEMOGLOBIN 10.5 g/dl (14.0-17.9); LYMPHOCYTES # (AUTO) 2.5 X10'3 (1.1-4.8); LYMPHOCYTES % (AUTO) 44.9 % (21-51); MEAN CORPUSCULAR HEMOGLOBIN 32.4 PG (27.0-31.0); MEAN CORPUSCULAR HGB CONC 33.1 g/dL (33.0-36.5); MEAN PLATELET VOLUME 6.3 FL (7.4-10.4); MONOCYTES # (AUTO) 0.6 X10'3 (0-0.9); MONOCYTES % (AUTO) 10.5 % (2-12); NEUTROPHILS # (AUTO) 2.3 X10'3 (1.8-7.7); NEUTROPHILS % (AUTO) 41.6 % (42-75); PLATELET COUNT 257 X10'3 (140-440); RED BLOOD COUNT 3.25 X10'6 (4.70-6.10); RED CELL DISTRIBUTION WIDTH 19.3 % (11.5-14.5); WHITE BLOOD COUNT 5.5 X10'3 (4.5-11.0)
[2020-12-08] MEDS ORDERED: heparin 1,000 units/ml 10ml inj HE ONE ×2 (07:50)
[2020-12-08 07:56] LABS: ALANINE AMINOTRANSFERASE 11 U/L (12-78); ALBUMIN 2.8 G/DL (3.4-5.0); ALBUMIN/GLOBULIN RATIO 0.5 (1.1-1.5); ALKALINE PHOSPHATASE 83 IU/L (46-116); ANION GAP 10 (8-16); ASPARTATE AMINO TRANSFERASE 14 U/L (10-37); BILIRUBIN,TOTAL 0.3 MG/DL (0.1-1.0); BLOOD UREA NITROGEN 66 MG/DL (7-18); BUN/CREATININE RATIO 8.4 (5.4-32.0); CALCIUM 8.8 MG/DL (8.5-10.1); CHLORIDE 99 MMOL/L (99-107); CREATININE 7.86 MG/DL (0.60-1.10); GLUCOSE 76 MG/DL (70-104); MAGNESIUM 2.3 MG/DL (1.5-2.4); PHOSPHORUS 4.8 MG/DL (2.3-4.5); SODIUM 132 MMOL/L (135-145); TOTAL PROTEIN 8.7 G/DL (6.4-8.2); VANCOMYCIN,RANDOM 0.1 UG/ML; eGFR 9 ML/MIN
[2020-12-08 08:00] VITALS: BP 139/77
[2020-12-08] MEDS: gentian violet 59ml topical solution TP SCH (08:00)
[2020-12-08] MEDS: Dakins solution (1/4 strength) 473ml solution TP SCH (08:00)
[2020-12-08] MEDS: sevelamer carbonate 800mg tablet PO SCH ×2 (08:09→13:03)
[2020-12-08] MEDS: metroNIDAZOLE 500mg tablet PO SCH (08:09)
[2020-12-08] MEDS: QUEtiapine 25mg tablet PO SCH (08:10)
[2020-12-08] MEDS: lactobacillus rhamnosus 10,000 MMU CELLS/CAPSULE PO SCH (08:10)
[2020-12-08] MEDS: cefTAZidime inj. 1 GM in normal saline 100ml IV soln 100 ML IV SCH (08:10)
[2020-12-08] MEDS: sennosides/docusate sodium tablet PO SCH (08:10)
[2020-12-08] MEDS: pantoprazole 40mg Tablet.DR PO SCH (08:10)
[2020-12-08] MEDS: JUVEN Smoothie Arginine/Glut./Ca2+Bmb (Juven 19.3pkt) 240ml cup PO SCH (08:11)
[2020-12-08 11:00] VITALS: BP 100/65
[2020-12-08] MEDS ORDERED: cefTAZidime inj. 1 GM in normal saline 100ml IV soln 100 ML IV ONE (13:50)
[2020-12-08 16:22] LABS: PLATELET ESTIMATE NORMAL
[2020-12-08 16:23] LABS: ANISOCYTOSIS 2+; ELLIPTOCYTES FEW; POLYCHROMASIA FEW; ROULEAUX 1+
--- NOTE | 2020-12-08 16:23 | NUR ---
patient received dialysis this am . 1.5L removed per dialysis nurse Jami. patient tolerated procedure. Wound pictures taken and in chart redressed. Report called to Giuseppe GOMEZ at [facility]. Patient transported vis [facility] to [facility] in stable condition. 1615hrs.
--- NOTE | 2020-12-15 16:09 | NUR ---
Debo the community planning technician called [facility] where patient was transferred on discharge. Patients belongings were still here at the hospital in the safe. belongings tag number [id number]. Debo the community planning technician called and spoke to the [employer]er Glue Spreader of admitting to get permission for Nicolas Haji to bean picker patients personal belongings from the safe and to take it to patient at [facility]. Debo called the patient and got permission for Nicolas haji to bean picker patients personal belongings in [facility] and take to patient at [facility]. Debo also received a call from Malika Bunn from [facility] who was waiting for belongings to arrive to bring to Mr Lara.Belongings successfully given to patient/
== END 2020-12-08 16:12 | DRG 720 ==
LOC: ER 17:19 → CICU 2S 19:43 → EDBEDREQSVC 20:37 → ICU 2S 09-30 23:20 → CICU 2S 10-05 19:44 → PCU 3S 10-07 15:28 → SUR 3N 10-25 14:20 → UNDODISIN 12-08 16:12
PROVIDERS: ADMIT Internal Medicine; ATTEND Internal Medicine
PROC: 5A09357 Assistance with Respiratory Ventilation, Less than 24 Consecutive Hours, Continuous Positive Airway Pressure (ICD-10-PCS; principal; 2020-09-23)
PROC: 5A1955Z Respiratory Ventilation, Greater than 96 Consecutive Hours (ICD-10-PCS; 2020-09-23)
PROC: 02HV33Z Insertion of Infusion Device into Superior Vena Cava, Percutaneous Approach (ICD-10-PCS; 2020-09-23)
PROC: 0BH17EZ Insertion of Endotracheal Airway into Trachea, Via Natural or Artificial Opening (ICD-10-PCS; 2020-09-23)
PROC: 30233N1 Transfusion of Nonautologous Red Blood Cells into Peripheral Vein, Percutaneous Approach (ICD-10-PCS; 2020-09-23)
PROC: 5A1D70Z Performance of Urinary Filtration, Intermittent, Less than 6 Hours Per Day (ICD-10-PCS; 2020-09-23)
PROC: 0W9930Z Drainage of Right Pleural Cavity with Drainage Device, Percutaneous Approach (ICD-10-PCS; 2020-09-25)
PROC: 0B9J8ZX Drainage of Left Lower Lung Lobe, Via Natural or Artificial Opening Endoscopic, Diagnostic (ICD-10-PCS; 2020-09-25)
PROC: B4201ZZ Computerized Tomography (CT Scan) of Abdominal Aorta using Low Osmolar Contrast (ICD-10-PCS; 2020-09-27)
PROC: B4241ZZ Computerized Tomography (CT Scan) of Superior Mesenteric Artery using Low Osmolar Contrast (ICD-10-PCS; 2020-09-27)
PROC: B4281ZZ Computerized Tomography (CT Scan) of Bilateral Renal Arteries using Low Osmolar Contrast (ICD-10-PCS; 2020-09-27)
PROC: B42C1ZZ Computerized Tomography (CT Scan) of Pelvic Arteries using Low Osmolar Contrast (ICD-10-PCS; 2020-09-27)
PROC: B42H1ZZ Computerized Tomography (CT Scan) of Bilateral Lower Extremity Arteries using Low Osmolar Contrast (ICD-10-PCS; 2020-09-27)
PROC: B4211ZZ Computerized Tomography (CT Scan) of Celiac Artery using Low Osmolar Contrast (ICD-10-PCS; 2020-09-27)
PROC: 5A1D90Z Performance of Urinary Filtration, Continuous, Greater than 18 hours Per Day (ICD-10-PCS; 2020-09-27)
PROC: 5A1D90Z Performance of Urinary Filtration, Continuous, Greater than 18 hours Per Day (ICD-10-PCS; 2020-09-28)
PROC: 30233R1 Transfusion of Nonautologous Platelets into Peripheral Vein, Percutaneous Approach (ICD-10-PCS; 2020-09-29)
PROC: 0B9L8ZX Drainage of Left Lung, Via Natural or Artificial Opening Endoscopic, Diagnostic (ICD-10-PCS; 2020-09-29)
PROC: 5A1D90Z Performance of Urinary Filtration, Continuous, Greater than 18 hours Per Day (ICD-10-PCS; 2020-09-29)
PROC: 5A1D90Z Performance of Urinary Filtration, Continuous, Greater than 18 hours Per Day (ICD-10-PCS; 2020-09-30)
PROC: 0DJ08ZZ Inspection of Upper Intestinal Tract, Via Natural or Artificial Opening Endoscopic (ICD-10-PCS; 2020-10-01)
PROC: 5A1D90Z Performance of Urinary Filtration, Continuous, Greater than 18 hours Per Day (ICD-10-PCS; 2020-10-01)
PROC: 5A1D90Z Performance of Urinary Filtration, Continuous, Greater than 18 hours Per Day (ICD-10-PCS; 2020-10-02)
PROC: 5A1D70Z Performance of Urinary Filtration, Intermittent, Less than 6 Hours Per Day (ICD-10-PCS; 2020-10-04)
PROC: 5A1D70Z Performance of Urinary Filtration, Intermittent, Less than 6 Hours Per Day (ICD-10-PCS; 2020-10-06)
PROC: 5A1D70Z Performance of Urinary Filtration, Intermittent, Less than 6 Hours Per Day (ICD-10-PCS; 2020-10-08)
PROC: 5A1D70Z Performance of Urinary Filtration, Intermittent, Less than 6 Hours Per Day (ICD-10-PCS; 2020-10-11)
PROC: 5A1D70Z Performance of Urinary Filtration, Intermittent, Less than 6 Hours Per Day (ICD-10-PCS; 2020-10-13)
PROC: 5A1D70Z Performance of Urinary Filtration, Intermittent, Less than 6 Hours Per Day (ICD-10-PCS; 2020-10-15)
PROC: 5A1D70Z Performance of Urinary Filtration, Intermittent, Less than 6 Hours Per Day (ICD-10-PCS; 2020-10-18)
PROC: 5A1D70Z Performance of Urinary Filtration, Intermittent, Less than 6 Hours Per Day (ICD-10-PCS; 2020-10-20)
PROC: 5A1D70Z Performance of Urinary Filtration, Intermittent, Less than 6 Hours Per Day (ICD-10-PCS; 2020-10-22)
PROC: 5A1D70Z Performance of Urinary Filtration, Intermittent, Less than 6 Hours Per Day (ICD-10-PCS; 2020-10-25)
PROC: 5A1D70Z Performance of Urinary Filtration, Intermittent, Less than 6 Hours Per Day (ICD-10-PCS; 2020-10-27)
PROC: 5A1D70Z Performance of Urinary Filtration, Intermittent, Less than 6 Hours Per Day (ICD-10-PCS; 2020-10-29)
PROC: 5A1D70Z Performance of Urinary Filtration, Intermittent, Less than 6 Hours Per Day (ICD-10-PCS; 2020-11-01)
PROC: 5A1D70Z Performance of Urinary Filtration, Intermittent, Less than 6 Hours Per Day (ICD-10-PCS; 2020-11-03)
PROC: 5A1D70Z Performance of Urinary Filtration, Intermittent, Less than 6 Hours Per Day (ICD-10-PCS; 2020-11-05)
PROC: 5A1D70Z Performance of Urinary Filtration, Intermittent, Less than 6 Hours Per Day (ICD-10-PCS; 2020-11-08)
PROC: 5A1D70Z Performance of Urinary Filtration, Intermittent, Less than 6 Hours Per Day (ICD-10-PCS; 2020-11-10)
PROC: B4201ZZ Computerized Tomography (CT Scan) of Abdominal Aorta using Low Osmolar Contrast (ICD-10-PCS; 2020-11-12)
PROC: B42H1ZZ Computerized Tomography (CT Scan) of Bilateral Lower Extremity Arteries using Low Osmolar Contrast (ICD-10-PCS; 2020-11-12)
PROC: 5A1D70Z Performance of Urinary Filtration, Intermittent, Less than 6 Hours Per Day (ICD-10-PCS; 2020-11-12)
PROC: 5A1D70Z Performance of Urinary Filtration, Intermittent, Less than 6 Hours Per Day (ICD-10-PCS; 2020-11-17)
PROC: 5A1D70Z Performance of Urinary Filtration, Intermittent, Less than 6 Hours Per Day (ICD-10-PCS; 2020-11-24)
PROC: 5A1D70Z Performance of Urinary Filtration, Intermittent, Less than 6 Hours Per Day (ICD-10-PCS; 2020-11-26)
PROC: 5A1D70Z Performance of Urinary Filtration, Intermittent, Less than 6 Hours Per Day (ICD-10-PCS; 2020-11-29)
PROC: 5A1D70Z Performance of Urinary Filtration, Intermittent, Less than 6 Hours Per Day (ICD-10-PCS; 2020-12-01)
PROC: 5A1D70Z Performance of Urinary Filtration, Intermittent, Less than 6 Hours Per Day (ICD-10-PCS; 2020-12-03)
PROC: 5A1D70Z Performance of Urinary Filtration, Intermittent, Less than 6 Hours Per Day (ICD-10-PCS; 2020-12-06)
PROC: 5A1D70Z Performance of Urinary Filtration, Intermittent, Less than 6 Hours Per Day (ICD-10-PCS; 2020-12-08)
DX: A41.9 Sepsis, unspecified organism (principal); J96.01 Acute respiratory failure with hypoxia; R65.21 Severe sepsis with septic shock; Z99.11 Dependence on respirator [ventilator] status; J91.8 Pleural effusion in other conditions classified elsewhere; E87.4 Mixed disorder of acid-base balance; J15.6 Pneumonia due to other Gram-negative bacteria; G93.40 Encephalopathy, unspecified; I13.2 Hypertensive heart and chronic kidney disease with heart failure and with stage 5 chronic kidney disease, or end stage renal disease; N17.9 Acute kidney failure, unspecified; T17.890A Other foreign object in other parts of respiratory tract causing asphyxiation, initial encounter; D69.6 Thrombocytopenia, unspecified; E11.22 Type 2 diabetes mellitus with diabetic chronic kidney disease; E11.42 Type 2 diabetes mellitus with diabetic polyneuropathy; E11.621 Type 2 diabetes mellitus with foot ulcer; Z20.822 Contact with and (suspected) exposure to COVID-19; K92.1 Melena; J98.19 Other pulmonary collapse; D63.8 Anemia in other chronic diseases classified elsewhere; E11.65 Type 2 diabetes mellitus with hyperglycemia; E87.5 Hyperkalemia; I27.29 Other secondary pulmonary hypertension; B95.61 Methicillin susceptible Staphylococcus aureus infection as the cause of diseases classified elsewhere; L97.529 Non-pressure chronic ulcer of other part of left foot with unspecified severity; B96.1 Klebsiella pneumoniae [K. pneumoniae] as the cause of diseases classified elsewhere; I50.813 Acute on chronic right heart failure; F17.200 Nicotine dependence, unspecified, uncomplicated; B00.89 Other herpesviral infection; M86.172 Other acute osteomyelitis, left ankle and foot; E11.51 Type 2 diabetes mellitus with diabetic peripheral angiopathy without gangrene; E11.69 Type 2 diabetes mellitus with other specified complication; N18.6 End stage renal disease; E87.1 Hypo-osmolality and hyponatremia; X58.XXXA Exposure to other specified factors, initial encounter; Z89.511 Acquired absence of right leg below knee; Z91.15 Patient's noncompliance with renal dialysis; Z91.19 Patient's noncompliance with other medical treatment and regimen; Z99.2 Dependence on renal dialysis; Z79.899 Other long term (current) drug therapy; Z59.0 Homelessness; Y93.89 Activity, other specified; Y92.89 Other specified places as the place of occurrence of the external cause; Y99.8 Other external cause status; I48.91 Unspecified atrial fibrillation; Z79.01 Long term (current) use of anticoagulants
CPT/HCPCS: 31628; 31645; 36415; 36430; 36600; 43235; 71045; 71250; 73630; 73718; 74174; 74176; 75635; 76937; 80048; 80053; 80069; 80076; 80202; 82272; 82330; 82728; 82803; 82948; 83036; 83540; 83550; 83605; 83735; 83880; 84100; 84132; 84134; 84145; 84478; 84484; 85007; 85008; 85018; 85025; 85027; 85610; 85730; 86704; 86706; 86870; 86880; 86885; 86900; 86901; 86902; 86905; 86922; 87040; 87070; 87075; 87077; 87081; 87102; 87186; 87340; 87635; 90935; 92508; 92616; 93005; 93306; 93926; 93971; 94002; 94003; 94640; 94660; 94760; 94799; 96365; 96375; 97110; 97112; 97116; 97161; 97530; 97535; 97542; 97760; 99152; 99291; A7015; C9113; E1594; G0257; G0378; J0171; J0692; J0713; J1040; J1160; J1644; J1720; J1815; J1940; J2150; J2185; J2250; J2405; J2543; J2704; J2997; J3010; J3260; J3370; J3480; J3490; J7040; J7050; J7060; P9016; P9035; P9045; P9047; Q4081; Q9967

== ENCOUNTER 2021-03-15 16:54 | Inpatient (IN) | payer MEDICAID ==
[~2021-03-15] VITALS: Ht 190.5 cm; Wt 97.0 kg
[~2021-03-15 16:54] MED LIST changes: +AMLO10TA PO; -AMLO10TA13 PO; +CLON1PAT14 TOP; +FOLI1TAB34 PO; +FURO80TA3 PO; +METO-384 PO; -METO50TA7 PO; +PHO667C PO; -epiNEPHrine 0.1mg/ml 10ml syringe ONE; -hyDRALAzine tablet PO
[2021-03-15 20:14] LABS: BASOPHILS % (AUTO) 0.5 % (0-1); EOSINOPHILS # (AUTO) 0.1 X10'3 (0-0.9); EOSINOPHILS % (AUTO) 1.7 % (0-6); HEMATOCRIT 23.3 % (42.0-52.0); HEMOGLOBIN 7.6 g/dl (14.0-17.9); LYMPHOCYTES # (AUTO) 0.9 X10'3 (1.1-4.8); LYMPHOCYTES % (AUTO) 14.6 % (21-51); MEAN CORPUSCULAR HEMOGLOBIN 33.1 PG (27.0-31.0); MEAN CORPUSCULAR HGB CONC 32.4 g/dL (33.0-36.5); MEAN CORPUSCULAR VOLUME 101.9 FL (78-98); MEAN PLATELET VOLUME 8.2 FL (7.4-10.4); MONOCYTES # (AUTO) 0.7 X10'3 (0-0.9); MONOCYTES % (AUTO) 10.5 % (2-12); NEUTROPHILS # (AUTO) 4.6 X10'3 (1.8-7.7); NEUTROPHILS % (AUTO) 72.7 % (42-75); PLATELET COUNT 231 X10'3 (140-440); RED BLOOD COUNT 2.29 X10'6 (4.70-6.10); RED CELL DISTRIBUTION WIDTH 17.8 % (11.5-14.5); WHITE BLOOD COUNT 6.4 X10'3 (4.5-11.0)
[2021-03-15 20:31] LABS: ALANINE AMINOTRANSFERASE 81 U/L (12-78); ALBUMIN 3.2 G/DL (3.4-5.0); ALBUMIN/GLOBULIN RATIO 0.6 (1.1-1.5); ALKALINE PHOSPHATASE 159 IU/L (46-116); ANION GAP 19 (8-16); ASPARTATE AMINO TRANSFERASE 48 U/L (10-37); BILIRUBIN,TOTAL 0.5 MG/DL (0.1-1.0); BLOOD UREA NITROGEN 128 MG/DL (7-18); CALCIUM 7.7 MG/DL (8.5-10.1); CHLORIDE 107 MMOL/L (99-107); CREATININE 10.65 MG/DL (0.60-1.10); GLUCOSE 84 MG/DL (70-104); SODIUM 136 MMOL/L (135-145); eGFR 6 ML/MIN
[2021-03-15 20:36] LABS: POTASSIUM 7.7 MMOL/L (3.5-5.1)
[2021-03-15 20:37] LABS: TOTAL CARBON DIOXIDE 9.7 MMOL/L (24-32)
[2021-03-15] MEDS ORDERED: albuterol 2.5 MG/3 ML nebule CONTNEB PRN (20:40)
[2021-03-15] MEDS ORDERED: SODIUM ZIRCONIUM CYCLOSILICATE 10 GM POWD.PACK PO STA (20:40)
[2021-03-15] MEDS ORDERED: calcium chloride 100 MG/1 ML inj IV ONE (20:40)
[2021-03-15] MEDS ORDERED: calcium chloride inj. 1,000 MG in NS 100ml IV soln (110ml) IV ONE (20:50)
[2021-03-15 21:39] LABS: PHOSPHORUS 10.2 MG/DL (2.3-4.5)
[2021-03-15] MEDS ORDERED: sodium bicarbonate (8.4%) inj. 150 MEQ in dextrose 5%-water 1,000 ML IV SCH (22:15)
[2021-03-15] MEDS ORDERED: ondansetron/PF 4mg/2ml inj IV PRN (22:55)
[2021-03-16] VITALS (9 sets, daily range): BP systolic 150–175; BP diastolic 78–97
[2021-03-16] MEDS ORDERED: dextrose 50%-water 50ml dispensing syringe IV PRN ×2 (00:15)
[2021-03-16] MEDS ORDERED: insulin Lispro (HumaLOG) vial - multi-dose SQ SCH (00:15)
[2021-03-16] MEDS ORDERED: MESSAGE TO PHARMACY PO ONE (00:15)
[2021-03-16] MEDS ORDERED: glucagon, human recombinant 1mg kit SUBCUT PRN (00:15)
[2021-03-16] MEDS ORDERED: dextrose ORAL solution 15 GM/59 ML bottle PO PRN (00:15)
[2021-03-16 01:26] LABS: HEMOGLOBIN A1C 5.1 % (4.5-6.2)
[2021-03-16 03:10] LABS: BASOPHILS % (AUTO) 0.8 % (0-1); EOSINOPHILS # (AUTO) 0.1 X10'3 (0-0.9); EOSINOPHILS % (AUTO) 1.1 % (0-6); LYMPHOCYTES # (AUTO) 1.1 X10'3 (1.1-4.8); LYMPHOCYTES % (AUTO) 19.9 % (21-51); MEAN CORPUSCULAR HEMOGLOBIN 32.8 PG (27.0-31.0); MEAN CORPUSCULAR HGB CONC 32.2 g/dL (33.0-36.5); MEAN CORPUSCULAR VOLUME 101.6 FL (78-98); MEAN PLATELET VOLUME 7.8 FL (7.4-10.4); MONOCYTES # (AUTO) 0.6 X10'3 (0-0.9); MONOCYTES % (AUTO) 10.9 % (2-12); NEUTROPHILS # (AUTO) 3.6 X10'3 (1.8-7.7); NEUTROPHILS % (AUTO) 67.3 % (42-75); PLATELET COUNT 184 X10'3 (140-440); RED BLOOD COUNT 1.92 X10'6 (4.70-6.10); RED CELL DISTRIBUTION WIDTH 17.3 % (11.5-14.5); WHITE BLOOD COUNT 5.4 X10'3 (4.5-11.0)
[2021-03-16 03:21] LABS: ALBUMIN 2.8 G/DL (3.4-5.0); ANION GAP 21 (8-16); BLOOD UREA NITROGEN 127 MG/DL (7-18); CHLORIDE 109 MMOL/L (99-107); CREATININE 10.62 MG/DL (0.60-1.10); GLUCOSE 94 MG/DL (70-104); SODIUM 137 MMOL/L (135-145); eGFR 6 ML/MIN
[2021-03-16 03:23] LABS: HEMATOCRIT 19.5 % (42.0-52.0); HEMOGLOBIN 6.3 g/dl (14.0-17.9)
[2021-03-16 03:41] LABS: POTASSIUM 6.6 MMOL/L (3.5-5.1); TOTAL CARBON DIOXIDE 7.1 MMOL/L (24-32)
--- NOTE | 2021-03-16 04:24 | NUR ---
TALKED TO DR. REYNOLDS ABOUT ABNORMAL LABS. I WAS TOLD TO OBSERVED FOR TRENDS IN FUTURE LABS AND THAT CURRENT LABS ARE AN EXPECTED FINDING AT THIS TIME DUE TO FLUID ADMINISTRATION.
[2021-03-16] MEDS ORDERED: NO HOME MEDS (04:34)
[2021-03-16] MEDS ORDERED: heparin 1,000 units/ml 10ml inj IV ONE (06:30)
[2021-03-16] MEDS ORDERED: EPOETIN ALFA-EPBX 20,000 UNIT/ML 1 ML MDV IV ONE (06:30)
[2021-03-16] MEDS ORDERED: heparin 1,000unit/ml 10ml vial 10 ML IV ONE (06:30)
[2021-03-16] MEDS ORDERED: albumin (human) 25% 100ml IV 100 ML IV PRN (06:30)
[2021-03-16] MEDS ORDERED: heparin 1,000 units/ml 10ml inj HE ONE ×2 (06:35)
--- NOTE | 2021-03-16 07:57 | NUR ---
Patient in room ED 11. I have received report from ER nurse and had the opportunity to ask questions and will assume patient care when he arrives to the floor. .
--- NOTE | 2021-03-16 08:40 | NUR ---
PAGER ID: [phone] MESSAGE: The bloodbank states that [facility] room 3017A has not received blood here, the order is for irradiated blood, and they are inquiring if that is correct? Thanks Lorenza ext [phone]
--- NOTE | 2021-03-16 10:14 | NUR ---
PAGER ID: [phone] MESSAGE: I need a blood consent done/signed for [facility] [place] room 7810E so he can be transfused. Thanks. Lorenza ext [phone]
--- NOTE | 2021-03-16 18:27 | NUR ---
Problems reprioritized. Patient report given, questions answered & plan of care reviewed with Sandra GOMEZ.
[2021-03-16] MEDS: insulin glargine (Lantus) pen - multi-dose SQ SCH (21:00)
[2021-03-17 02:00] VITALS: BP 154/79
[2021-03-17 06:00] VITALS: BP 128/69
--- NOTE | 2021-03-17 06:15 | NUR ---
Problems reprioritized. Patient report given, questions answered & plan of care reviewed with Gorge GOMEZ. Addendum: 03/17/21 at 0616 by Sandra Chung RN Amended: Links added.
[2021-03-17 08:22] LABS: BASOPHILS % (AUTO) 0.6 % (0-1); EOSINOPHILS # (AUTO) 0.1 X10'3 (0-0.9); EOSINOPHILS % (AUTO) 1.2 % (0-6); HEMATOCRIT 24.7 % (42.0-52.0); HEMOGLOBIN 8.4 g/dl (14.0-17.9); LYMPHOCYTES % (AUTO) 20.6 % (21-51); MEAN CORPUSCULAR HEMOGLOBIN 32.2 PG (27.0-31.0); MEAN CORPUSCULAR HGB CONC 34.2 g/dL (33.0-36.5); MEAN CORPUSCULAR VOLUME 94.4 FL (78-98); MEAN PLATELET VOLUME 7.8 FL (7.4-10.4); MONOCYTES # (AUTO) 0.9 X10'3 (0-0.9); MONOCYTES % (AUTO) 18.5 % (2-12); NEUTROPHILS # (AUTO) 2.7 X10'3 (1.8-7.7); NEUTROPHILS % (AUTO) 59.1 % (42-75); PLATELET COUNT 141 X10'3 (140-440); RED BLOOD COUNT 2.62 X10'6 (4.70-6.10); RED CELL DISTRIBUTION WIDTH 17.2 % (11.5-14.5); WHITE BLOOD COUNT 4.7 X10'3 (4.5-11.0)
[2021-03-17 08:36] LABS: ALANINE AMINOTRANSFERASE 49 U/L (12-78); ALBUMIN 2.6 G/DL (3.4-5.0); ALBUMIN/GLOBULIN RATIO 0.6 (1.1-1.5); ALKALINE PHOSPHATASE 103 IU/L (46-116); ANION GAP 13 (8-16); ASPARTATE AMINO TRANSFERASE 22 U/L (10-37); BILIRUBIN,TOTAL 0.7 MG/DL (0.1-1.0); BLOOD UREA NITROGEN 59 MG/DL (7-18); BUN/CREATININE RATIO 9.1 (5.4-32.0); CALCIUM 7.2 MG/DL (8.5-10.1); CHLORIDE 108 MMOL/L (99-107); CREATININE 6.48 MG/DL (0.60-1.10); GLUCOSE 72 MG/DL (70-104); MAGNESIUM 1.7 MG/DL (1.5-2.4); PHOSPHORUS 4.6 MG/DL (2.3-4.5); POTASSIUM 5.2 MMOL/L (3.5-5.1); SODIUM 141 MMOL/L (135-145); TOTAL PROTEIN 7.1 G/DL (6.4-8.2); eGFR 11 ML/MIN
[2021-03-17 09:26] LABS: HBSAG SCREEN Negative (Negative)
[2021-03-17 18:00] VITALS: BP 164/95
[2021-03-17 19:49] VITALS: BP 151/87
[2021-03-17] MEDS: insulin glargine (Lantus) pen - multi-dose SQ SCH (21:00)
[2021-03-18 02:00] VITALS: BP 150/85
[2021-03-18 06:00] VITALS: BP 163/93
--- NOTE | 2021-03-18 06:59 | NUR ---
Pt reported no complaints last night. Pt was sleeping most of the time. Linen change was done this morning while pt was out of bed.
[2021-03-18] MEDS ORDERED: EPOETIN ALFA-EPBX 20,000 UNIT/ML 1 ML MDV IV ONE (08:00)
[2021-03-18] MEDS ORDERED: normal saline 1000ml 250 ML IV PRN (08:00)
[2021-03-18] MEDS ORDERED: heparin 1,000unit/ml 10ml vial 10 ML IV ONE (08:00)
[2021-03-18] MEDS ORDERED: heparin 1,000 units/ml 10ml inj HE ONE ×2 (08:00)
[2021-03-18 08:40] LABS: BASOPHILS % (AUTO) 0.6 % (0-1); EOSINOPHILS # (AUTO) 0.1 X10'3 (0-0.9); EOSINOPHILS % (AUTO) 1.2 % (0-6); HEMATOCRIT 25.2 % (42.0-52.0); HEMOGLOBIN 8.6 g/dl (14.0-17.9); LYMPHOCYTES # (AUTO) 1.1 X10'3 (1.1-4.8); LYMPHOCYTES % (AUTO) 17.8 % (21-51); MEAN CORPUSCULAR HEMOGLOBIN 32.5 PG (27.0-31.0); MEAN CORPUSCULAR HGB CONC 34.2 g/dL (33.0-36.5); MEAN CORPUSCULAR VOLUME 95.2 FL (78-98); MEAN PLATELET VOLUME 7.9 FL (7.4-10.4); MONOCYTES % (AUTO) 15.9 % (2-12); NEUTROPHILS # (AUTO) 3.9 X10'3 (1.8-7.7); NEUTROPHILS % (AUTO) 64.5 % (42-75); PLATELET COUNT 160 X10'3 (140-440); RED BLOOD COUNT 2.65 X10'6 (4.70-6.10); RED CELL DISTRIBUTION WIDTH 17.3 % (11.5-14.5)
[2021-03-18 09:21] LABS: GLUCOSE 67 MG/DL (70-104)
[2021-03-18 09:22] LABS: ALANINE AMINOTRANSFERASE 46 U/L (12-78); ALBUMIN 2.7 G/DL (3.4-5.0); ALBUMIN/GLOBULIN RATIO 0.5 (1.1-1.5); ALKALINE PHOSPHATASE 103 IU/L (46-116); ANION GAP 14 (8-16); ASPARTATE AMINO TRANSFERASE 22 U/L (10-37); BILIRUBIN,TOTAL 0.6 MG/DL (0.1-1.0); BLOOD UREA NITROGEN 74 MG/DL (7-18); CALCIUM 7.3 MG/DL (8.5-10.1); CHLORIDE 104 MMOL/L (99-107); CREATININE 7.42 MG/DL (0.60-1.10); MAGNESIUM 1.8 MG/DL (1.5-2.4); PHOSPHORUS 5.3 MG/DL (2.3-4.5); POTASSIUM 5.5 MMOL/L (3.5-5.1); SODIUM 138 MMOL/L (135-145); TOTAL CARBON DIOXIDE 19.9 MMOL/L (24-32); TOTAL PROTEIN 7.7 G/DL (6.4-8.2); eGFR 9 ML/MIN
[2021-03-18 11:00] VITALS: BP 148/83
[2021-03-18 15:00] VITALS: BP 177/100
[2021-03-18 18:00] VITALS: BP 148/84
--- NOTE | 2021-03-18 19:02 | NUR ---
Problems reprioritized. Patient report given, questions answered & plan of care reviewed with Leann RN.
[2021-03-18] MEDS: insulin glargine (Lantus) pen - multi-dose SQ SCH (21:00)
[2021-03-18 22:00] VITALS: BP 132/65
[2021-03-19 02:00] VITALS: BP 144/83
[2021-03-19 06:38] LABS: BASOPHILS % (AUTO) 0.5 % (0-1); EOSINOPHILS # (AUTO) 0.1 X10'3 (0-0.9); EOSINOPHILS % (AUTO) 1.1 % (0-6); HEMATOCRIT 22.1 % (42.0-52.0); HEMOGLOBIN 7.6 g/dl (14.0-17.9); LYMPHOCYTES # (AUTO) 1.1 X10'3 (1.1-4.8); LYMPHOCYTES % (AUTO) 20.8 % (21-51); MEAN CORPUSCULAR HEMOGLOBIN 32.9 PG (27.0-31.0); MEAN CORPUSCULAR HGB CONC 34.4 g/dL (33.0-36.5); MEAN CORPUSCULAR VOLUME 95.5 FL (78-98); MEAN PLATELET VOLUME 7.8 FL (7.4-10.4); MONOCYTES % (AUTO) 19.1 % (2-12); NEUTROPHILS # (AUTO) 3.1 X10'3 (1.8-7.7); NEUTROPHILS % (AUTO) 58.5 % (42-75); PLATELET COUNT 132 X10'3 (140-440); RED BLOOD COUNT 2.31 X10'6 (4.70-6.10); RED CELL DISTRIBUTION WIDTH 17.3 % (11.5-14.5); WHITE BLOOD COUNT 5.2 X10'3 (4.5-11.0)
[2021-03-19 07:13] LABS: ALANINE AMINOTRANSFERASE 25 U/L (12-78); ALBUMIN 2.1 G/DL (3.4-5.0); ALBUMIN/GLOBULIN RATIO 0.5 (1.1-1.5); ANION GAP 9 (8-16); ASPARTATE AMINO TRANSFERASE 15 U/L (10-37); BILIRUBIN,TOTAL 0.5 MG/DL (0.1-1.0); BLOOD UREA NITROGEN 38 MG/DL (7-18); BUN/CREATININE RATIO 8.3 (5.4-32.0); CALCIUM 6.9 MG/DL (8.5-10.1); CHLORIDE 105 MMOL/L (99-107); CREATININE 4.56 MG/DL (0.60-1.10); GLUCOSE 80 MG/DL (70-104); MAGNESIUM 1.7 MG/DL (1.5-2.4); PHOSPHORUS 3.6 MG/DL (2.3-4.5); SODIUM 140 MMOL/L (135-145); TOTAL CARBON DIOXIDE 25.6 MMOL/L (24-32); TOTAL PROTEIN 6.4 G/DL (6.4-8.2); eGFR 16 ML/MIN
[2021-03-19 07:14] LABS: ALKALINE PHOSPHATASE 82 IU/L (46-116)
[2021-03-19 07:19] LABS: TOTAL CELLS COUNTED 100
[2021-03-19 07:21] LABS: PLATELET ESTIMATE DECREASED; POLYCHROMASIA FEW
[2021-03-19 07:22] LABS: ANISOCYTOSIS 1+; STOMATOCYTES FEW; TEAR DROP CELLS FEW
--- NOTE | 2021-03-19 10:07 | NUR ---
Initial: Pt admitted w/ increasing SOB and metabolic acidosis w/ hx of ESRD and dialysis per EMR. Pt also noted w/ chronic foot wound. Pt w/ same wound last admit in September 2020 and was receiving Vanilla Jaydon Shakes BID for wound healing. Pt continues w/ HD this admit, currently on CCHO diet w/ 100% intake of meals. LBM 03/15 w/ no bowel care. Will continue to follow and make recommendations as appropriate. Recs: 1. Continue CCHO diet as tolerated 2. Vanilla Jaydon Shake BIDBD per pt preference previous admit; pending MD verification 3. Bowel care per rx 4. Scaled wts w/ dialysis Addendum: 03/19/21 at [address] Amended: Links added.
[2021-03-19 18:00] VITALS: BP 154/87
[2021-03-19] MEDS: insulin glargine (Lantus) pen - multi-dose SQ SCH (21:00)
[2021-03-19 22:00] VITALS: BP 147/85
[2021-03-20 02:00] VITALS: BP 157/92
[2021-03-20 06:00] VITALS: BP 141/67
[2021-03-20 06:42] LABS: BASOPHILS % (AUTO) 0.5 % (0-1); EOSINOPHILS # (AUTO) 0.1 X10'3 (0-0.9); EOSINOPHILS % (AUTO) 1.4 % (0-6); HEMATOCRIT 22.2 % (42.0-52.0); HEMOGLOBIN 7.5 g/dl (14.0-17.9); LYMPHOCYTES # (AUTO) 0.9 X10'3 (1.1-4.8); LYMPHOCYTES % (AUTO) 17.3 % (21-51); MEAN CORPUSCULAR HEMOGLOBIN 32.4 PG (27.0-31.0); MEAN CORPUSCULAR HGB CONC 33.7 g/dL (33.0-36.5); MEAN CORPUSCULAR VOLUME 95.9 FL (78-98); MEAN PLATELET VOLUME 7.5 FL (7.4-10.4); MONOCYTES # (AUTO) 0.8 X10'3 (0-0.9); MONOCYTES % (AUTO) 15.3 % (2-12); NEUTROPHILS # (AUTO) 3.5 X10'3 (1.8-7.7); NEUTROPHILS % (AUTO) 65.5 % (42-75); PLATELET COUNT 133 X10'3 (140-440); RED BLOOD COUNT 2.31 X10'6 (4.70-6.10); RED CELL DISTRIBUTION WIDTH 17.4 % (11.5-14.5); WHITE BLOOD COUNT 5.4 X10'3 (4.5-11.0)
[2021-03-20 06:57] LABS: ALANINE AMINOTRANSFERASE 25 U/L (12-78); ALBUMIN 2.1 G/DL (3.4-5.0); ALBUMIN/GLOBULIN RATIO 0.5 (1.1-1.5); ALKALINE PHOSPHATASE 78 IU/L (46-116); ANION GAP 9 (8-16); ASPARTATE AMINO TRANSFERASE 16 U/L (10-37); BILIRUBIN,TOTAL 0.4 MG/DL (0.1-1.0); BLOOD UREA NITROGEN 49 MG/DL (7-18); BUN/CREATININE RATIO 8.7 (5.4-32.0); CALCIUM 7.2 MG/DL (8.5-10.1); CHLORIDE 106 MMOL/L (99-107); CREATININE 5.65 MG/DL (0.60-1.10); GLUCOSE 86 MG/DL (70-104); MAGNESIUM 1.7 MG/DL (1.5-2.4); PHOSPHORUS 4.9 MG/DL (2.3-4.5); POTASSIUM 4.4 MMOL/L (3.5-5.1); SODIUM 139 MMOL/L (135-145); TOTAL CARBON DIOXIDE 24.3 MMOL/L (24-32); TOTAL PROTEIN 6.6 G/DL (6.4-8.2); eGFR 13 ML/MIN
[2021-03-20] MEDS: JUVEN Shake w/Arg/Glut/Ca2+Bmb (Juven 19.3gm) pkt 240ml PO SCH ×2 (07:30→17:30)
[2021-03-20 11:00] VITALS: BP 162/93
[2021-03-20 15:00] VITALS: BP 157/80
[2021-03-20 18:00] VITALS: BP 177/81
--- NOTE | 2021-03-20 18:15 | NUR ---
Problems reprioritized. Patient report given, questions answered & plan of care reviewed with CELIA GOMEZ.
--- NOTE | 2021-03-20 18:58 | NUR ---
Patient in room PCU 3017. I have received report from Gorge GOMEZ and had the opportunity to ask questions and assume patient care.
--- NOTE | 2021-03-20 19:04 | NUR ---
Patient in room PCU 3017. I have received report from Gorge GOMEZ and had the opportunity to ask questions and assume patient care.
[2021-03-20] MEDS: acetaminophen 325mg tablet PO PRN (20:01)
[2021-03-20] MEDS: insulin glargine (Lantus) pen - multi-dose SQ SCH (21:00)
[2021-03-21] VITALS (11 sets, daily range): BP systolic 130–180; BP diastolic 76–102
--- NOTE | 2021-03-21 03:37 | NUR ---
I have reviewed and agree with all interventions, assessments performed and documented by Lu GOMEZ .
--- NOTE | 2021-03-21 06:31 | NUR ---
Problems reprioritized. Patient report given, questions answered & plan of care reviewed with Anish GOMEZ.
--- NOTE | 2021-03-21 06:31 | NUR ---
Problems reprioritized. Patient report given, questions answered & plan of care reviewed with Anish GOMEZ.
[2021-03-21 06:37] LABS: ALANINE AMINOTRANSFERASE 21 U/L (12-78); ALBUMIN 2.1 G/DL (3.4-5.0); ALBUMIN/GLOBULIN RATIO 0.5 (1.1-1.5); ALKALINE PHOSPHATASE 73 IU/L (46-116); ANION GAP 12 (8-16); ASPARTATE AMINO TRANSFERASE 15 U/L (10-37); BILIRUBIN,TOTAL 0.4 MG/DL (0.1-1.0); BLOOD UREA NITROGEN 80 MG/DL (7-18); BUN/CREATININE RATIO 12.1 (5.4-32.0); CALCIUM 7.3 MG/DL (8.5-10.1); CHLORIDE 103 MMOL/L (99-107); GLUCOSE 70 MG/DL (70-104); MAGNESIUM 1.9 MG/DL (1.5-2.4); PHOSPHORUS 5.4 MG/DL (2.3-4.5); POTASSIUM 5.5 MMOL/L (3.5-5.1); SODIUM 137 MMOL/L (135-145); TOTAL CARBON DIOXIDE 21.6 MMOL/L (24-32); TOTAL PROTEIN 6.5 G/DL (6.4-8.2); eGFR 10 ML/MIN
[2021-03-21] MEDS: JUVEN Shake w/Arg/Glut/Ca2+Bmb (Juven 19.3gm) pkt 240ml PO SCH ×2 (07:30→17:30)
[2021-03-21] MEDS: dextrose ORAL solution 15 GM/59 ML bottle PO PRN ×2 (07:41→08:04)
[2021-03-21] MEDS ORDERED: heparin 1,000 units/ml 10ml inj HE ONE ×2 (08:00)
[2021-03-21] MEDS ORDERED: normal saline 1000ml 250 ML IV PRN (08:00)
[2021-03-21] MEDS ORDERED: EPOETIN ALFA-EPBX 20,000 UNIT/ML 1 ML MDV IV ONE (08:00)
[2021-03-21] MEDS ORDERED: heparin 1,000unit/ml 10ml vial 10 ML IV ONE (08:00)
[2021-03-21 09:56] LABS: HEP B CORE AB, TOT Negative (Negative)
[2021-03-21] MEDS: acetaminophen 325mg tablet PO PRN (10:11)
[2021-03-21 10:37] LABS: MEAN CORPUSCULAR HEMOGLOBIN 31.9 PG (27.0-31.0); MEAN CORPUSCULAR HGB CONC 33.1 g/dL (33.0-36.5); MEAN CORPUSCULAR VOLUME 96.3 FL (78-98); MEAN PLATELET VOLUME 7.9 FL (7.4-10.4); PLATELET COUNT 145 X10'3 (140-440); RED BLOOD COUNT 2.04 X10'6 (4.70-6.10); RED CELL DISTRIBUTION WIDTH 17.4 % (11.5-14.5); WHITE BLOOD COUNT 5.9 X10'3 (4.5-11.0)
[2021-03-21 10:44] LABS: HEMOGLOBIN 6.5 g/dl (14.0-17.9)
[2021-03-21 10:45] LABS: HEMATOCRIT 19.6 % (42.0-52.0)
--- NOTE | 2021-03-21 10:45 | NUR ---
LAB VALUE TAKEN FROM LAB, REPORTED TO PRIMARY RN.
--- NOTE | 2021-03-21 10:48 | NUR ---
Page Sent promotional table spacer PAGER ID: [phone] MESSAGE: [id number] . Critical Hgb 6.5 and Hct 19.6. Mary [id number]
--- NOTE | 2021-03-21 13:33 | NUR ---
Blood given pre filter with HD by HD RN
--- NOTE | 2021-03-21 17:15 | NUR ---
Student documentation: I have reviewed and agree with all interventions, assessments performed and documented by Marzia . Student Medication Administration: For this medication-pass time frame, all medication were reviewed, dispensed, administered and documented per hospital policy by Mariza.
--- NOTE | 2021-03-21 18:08 | NUR ---
Problems reprioritized. Patient report given, questions answered & plan of care reviewed with Kaylah GOMEZ . Patient eating dinner and in no acute distress.
--- NOTE | 2021-03-21 18:16 | NUR ---
Patient in room PCU 3017. I have received report from PATRICIA Hernandez and had the opportunity to ask questions and assume patient care.
[2021-03-21] MEDS: insulin glargine (Lantus) pen - multi-dose SQ SCH (21:00)
[2021-03-22 02:00] VITALS: BP 155/93
--- NOTE | 2021-03-22 06:41 | NUR ---
Problems reprioritized. Patient report given, questions answered & plan of care reviewed with Jenni RN.
[2021-03-22 07:11] VITALS: BP 147/79
[2021-03-22] MEDS: JUVEN Shake w/Arg/Glut/Ca2+Bmb (Juven 19.3gm) pkt 240ml PO SCH ×2 (07:30→17:30)
[2021-03-22 11:00] VITALS: BP 112/47
[2021-03-22 14:00] LABS: MEAN CORPUSCULAR HEMOGLOBIN 32.1 PG (27.0-31.0); MEAN CORPUSCULAR HGB CONC 33.7 g/dL (33.0-36.5); MEAN CORPUSCULAR VOLUME 95.2 FL (78-98); MEAN PLATELET VOLUME 8.4 FL (7.4-10.4); PLATELET COUNT 116 X10'3 (140-440); RED BLOOD COUNT 2.09 X10'6 (4.70-6.10); RED CELL DISTRIBUTION WIDTH 17.1 % (11.5-14.5); WHITE BLOOD COUNT 5.5 X10'3 (4.5-11.0)
[2021-03-22 14:04] LABS: HEMOGLOBIN 6.7 g/dl (14.0-17.9)
[2021-03-22 14:05] LABS: HEMATOCRIT 19.9 % (42.0-52.0)
[2021-03-22 15:00] VITALS: BP 117/70
--- NOTE | 2021-03-22 15:49 | NUR ---
PRESSURE ULCER EDUCATION: DEFINITION: A pressure ulcer is an area of skin that breaks down when you stay in one position too long. The constant pressure against the skin reduces the blood flow to that area and the affected tissue dies. CAUSES: "Being bedridden or in a wheelchair "Fragile skin "Having a chronic condition, such as diabetes or vascular disease "Inability to move certain parts of your body without assistance "Older age "Incontinence of urine or stool SYMPTOMS: "A reddened area that DOES NOT turn white when pressed on - this can be the beginning of a pressure ulcer "A blister, deep sore or a crater - these can be advanced pressure ulcers FIRST AID: "Relieve the pressure on this area "Keep the area clean and dry "Call your primary doctor if you see any of the above symptoms "DO NOT massage the area "DO NOT use a donut shaped or ring shaped pillow- these actually interfere with the blood flow and cause complications PREVENTION: "Check for pressure ulcers everyday "Change position at least every two hours to relieve pressure "Use items that help relieve pressure- pillows, sheepskin, foam padding, and powders. "Keep skin clean and dry "Eat healthy well balanced meals "Exercise daily IF YOU SEE ANY OF THESE SYMPTOMS WHILE IN THE HOSPITAL - TELL YOUR NURSE IMMEDIATELY. IF YOU SEE ANY OF THESE SYMPTOMS WHILE AT HOME OR HAVE ANY QUESTIONS OR CONCERNS ABOUT PRESSURE ULCERS - CALL YOUR PRIMARY DOCTOR IMMEDIATELY. Addendum: 03/22/21 at 1550 by Sury Miranda RN Amended: Links added.
[2021-03-22 18:00] VITALS: BP_SYST 159; BP_SYST 89; BP_DIAS 89
--- NOTE | 2021-03-22 18:39 | NUR ---
Patient in room PCU 3017. I have received report from PATRICIA Arteaga and had the opportunity to ask questions and assume patient care.
--- NOTE | 2021-03-22 18:40 | NUR ---
Patient in room PCU 3017. I have received report from PATRICIA Arteaga and had the opportunity to ask questions and assume patient care.
[2021-03-22] MEDS: insulin glargine (Lantus) pen - multi-dose SQ SCH (21:00)
[2021-03-22 22:00] VITALS: BP 146/85
--- NOTE | 2021-03-22 23:15 | NUR ---
Prior to hanging blood, patients temp was taken and it was 100.3. Dr Inman was notified. He ordered a UA, Two antibiotics, and a chest x ray. Blood was put on hold per Dr Inman at this time.
[2021-03-23] VITALS (8 sets, daily range): BP systolic 120–187; BP diastolic 82–109
[2021-03-23] MEDS: CefTRIAXone/D5W-Rocephin 1gm 50 ML IV SCH ×2 (00:57→07:46)
[2021-03-23] MEDS: azithromycin/NS 500mg/250ml 250 ML IV SCH ×2 (01:38→08:45)
--- NOTE | 2021-03-23 06:36 | NUR ---
Problems reprioritized. Patient report given, questions answered & plan of care reviewed with PATRICIA Sanchez..
--- NOTE | 2021-03-23 06:36 | NUR ---
Problems reprioritized. Patient report given, questions answered & plan of care reviewed with PATRICIA Sanchez I agree with PATRICIA Duranbulb tester, assessments, and charting .
--- NOTE | 2021-03-23 06:51 | NUR ---
received Report from Cierra/Renee GOMEZ.
[2021-03-23] MEDS: JUVEN Shake w/Arg/Glut/Ca2+Bmb (Juven 19.3gm) pkt 240ml PO SCH (07:30)
[2021-03-23 09:07] LABS: BASOPHILS % (AUTO) 0.8 % (0-1); EOSINOPHILS # (AUTO) 0.1 X10'3 (0-0.9); EOSINOPHILS % (AUTO) 1.8 % (0-6); HEMATOCRIT 23.8 % (42.0-52.0); HEMOGLOBIN 8.1 g/dl (14.0-17.9); LYMPHOCYTES % (AUTO) 18.3 % (21-51); MEAN CORPUSCULAR HEMOGLOBIN 31.6 PG (27.0-31.0); MEAN CORPUSCULAR HGB CONC 33.9 g/dL (33.0-36.5); MEAN CORPUSCULAR VOLUME 93.3 FL (78-98); MEAN PLATELET VOLUME 7.6 FL (7.4-10.4); MONOCYTES # (AUTO) 0.6 X10'3 (0-0.9); NEUTROPHILS # (AUTO) 3.6 X10'3 (1.8-7.7); NEUTROPHILS % (AUTO) 67.1 % (42-75); PLATELET COUNT 152 X10'3 (140-440); RED BLOOD COUNT 2.55 X10'6 (4.70-6.10); RED CELL DISTRIBUTION WIDTH 16.9 % (11.5-14.5); WHITE BLOOD COUNT 5.4 X10'3 (4.5-11.0)
[2021-03-23 09:14] LABS: ALANINE AMINOTRANSFERASE 21 U/L (12-78); ALBUMIN 2.4 G/DL (3.4-5.0); ALBUMIN/GLOBULIN RATIO 0.5 (1.1-1.5); ALKALINE PHOSPHATASE 80 IU/L (46-116); ANION GAP 6 (8-16); BILIRUBIN,TOTAL 0.5 MG/DL (0.1-1.0); BLOOD UREA NITROGEN 52 MG/DL (7-18); BUN/CREATININE RATIO 10.1 (5.4-32.0); CALCIUM 7.4 MG/DL (8.5-10.1); CHLORIDE 103 MMOL/L (99-107); CREATININE 5.15 MG/DL (0.60-1.10); GLUCOSE 110 MG/DL (70-104); POTASSIUM 4.9 MMOL/L (3.5-5.1); SODIUM 137 MMOL/L (135-145); TOTAL CARBON DIOXIDE 27.7 MMOL/L (24-32); TOTAL PROTEIN 7.2 G/DL (6.4-8.2); eGFR 14 ML/MIN
[2021-03-23 09:21] LABS: ASPARTATE AMINO TRANSFERASE 21 U/L (10-37)
[2021-03-23 09:40] LABS: UA COLLECTION TYPE URINAL
[2021-03-23 09:41] LABS: CLARITY,URINE CLEAR (Clear); COLOR,URINE YELLOW (Yellow); GLUCOSE, URINE 100 mg/dl (Neg); KETONES,URINE NEGATIVE (Neg); LEUKOCYTE ESTERASE ,URINE NEGATIVE (Neg); NITRITES, URINE NEGATIVE (Neg); OCCULT BLOOD,URINE NEGATIVE (Neg); PROTEIN,URINE 100 mg/dl (Neg); UROBILINOGEN,URINE 0.2 E.U/dL (0.2-1.0)
[2021-03-23 09:58] LABS: WBC,URINE 0-4 /HPF (0-4)
[2021-03-23 09:59] LABS: BACTERIA,URINE NONE SEEN /HPF (Neg); RBC,URINE 0-2 /HPF (0-2); SQUAMOUS EPITHELIAL CELL,UR NONE SEEN /LPF (FEW)
--- NOTE | 2021-03-23 10:00 | NUR ---
Pt has no fever, 97.7 oral this am. No distress, pt had his erythromycin infusing and he asked another nurse, Saniya Farias to stop it because he stated he did not like it, it gave him a headache and nausea. Pt did not seem to be in distress only upset and wanted to be left alone. Dr Doss notified.
[2021-03-23] MEDS ORDERED: hydrALAZINE 20mg/ml inj. IV ONE (11:30)
[2021-03-23] MEDS ORDERED: HYDROcodone/acetaminophen 10/325mg tab PO ONE (11:30)
[2021-03-23] MEDS ORDERED: PROP10TA10 PO (12:43)
--- NOTE | 2021-03-23 16:30 | NUR ---
pt DC to [facility] [employer], pt is A & O x4 and in no apparent distress. Pt verbalizes understanding of all DC orders. He able to teach back the DC orders, the importance of following up with PCP, dialysis tomorrow at 1230, and wound care on . pt also given a new prescription for HTN. Educated about compliance. pt given wound care supplies, refused pictures and wound care. He wanted to take off [employer] box upset about leaving. Pt's IV cath removed intact. pt transferred to the wheelchair effortless, wheeled to the front where transit van picked him up.
--- NOTE | 2021-03-23 17:19 | NUR ---
pT REFUSED PICTURES AND WOUND CARE. WANTED SUPPLIES AND TO BE LEFT ALONE.
[2021-03-23] MEDS ORDERED: lactobacillus rhamnosus 10,000 MMU CELLS/CAPSULE PO SCH (20:00)
== END 2021-03-23 16:20 | disposition home or self-care (01) | DRG 425 ==
LOC: ER 16:55 → ED HOLD 22:58 → PCU 3S 03-16 08:20
PROVIDERS: ADMIT Internal Medicine; ATTEND Family Medicine
PROC: 30233N1 Transfusion of Nonautologous Red Blood Cells into Peripheral Vein, Percutaneous Approach (ICD-10-PCS; principal; 2021-03-16)
PROC: 5A1D70Z Performance of Urinary Filtration, Intermittent, Less than 6 Hours Per Day (ICD-10-PCS; 2021-03-16)
PROC: 5A1D70Z Performance of Urinary Filtration, Intermittent, Less than 6 Hours Per Day (ICD-10-PCS; 2021-03-18)
PROC: 5A1D70Z Performance of Urinary Filtration, Intermittent, Less than 6 Hours Per Day (ICD-10-PCS; 2021-03-21)
DX: E87.5 Hyperkalemia (principal); I13.2 Hypertensive heart and chronic kidney disease with heart failure and with stage 5 chronic kidney disease, or end stage renal disease; J91.8 Pleural effusion in other conditions classified elsewhere; E87.2 Acidosis; I27.29 Other secondary pulmonary hypertension; N18.6 End stage renal disease; Z20.822 Contact with and (suspected) exposure to COVID-19; E11.22 Type 2 diabetes mellitus with diabetic chronic kidney disease; E11.42 Type 2 diabetes mellitus with diabetic polyneuropathy; I50.9 Heart failure, unspecified; Z60.2 Problems related to living alone; D64.9 Anemia, unspecified; E11.51 Type 2 diabetes mellitus with diabetic peripheral angiopathy without gangrene; L97.521 Non-pressure chronic ulcer of other part of left foot limited to breakdown of skin; E11.621 Type 2 diabetes mellitus with foot ulcer; Z66 Do not resuscitate; I50.812 Chronic right heart failure; J90 Pleural effusion, not elsewhere classified; E87.70 Fluid overload, unspecified; Z99.2 Dependence on renal dialysis; Z90.49 Acquired absence of other specified parts of digestive tract; Z89.412 Acquired absence of left great toe; Z89.511 Acquired absence of right leg below knee; Z59.00 Homelessness unspecified; Z91.19 Patient's noncompliance with other medical treatment and regimen; Z79.899 Other long term (current) drug therapy
CPT/HCPCS: 36415; 36430; 71045; 80048; 80053; 81001; 82948; 83036; 83605; 83735; 83880; 84100; 84145; 85007; 85025; 85027; 86704; 86706; 86870; 86885; 86900; 86901; 86922; 87040; 87081; 87340; 87635; 93005; 94640; 94760; 96365; 99285; A7015; G0257; G0378; J0360; J0456; J0696; J1644; J1815; J2405; P9016; Q4081

== ENCOUNTER 2021-09-07 01:03 | Emergency (ER) | payer MEDICAID ==
[~2021-09-07] VITALS: Ht 188 cm; Wt 68.2 kg
[~2021-09-07 01:03] MED LIST changes: -AMLO10TA PO; -CLON1PAT14 TOP; -FOLI1TAB34 PO; -FURO80TA3 PO; -METO-384 PO; -PHO667C PO; +PROP10TA10 PO
--- NOTE | 2021-09-07 01:58 | NUR ---
ADVISED DR WONG OF PT BP OF 215/133
[2021-09-07] MEDS ORDERED: hydrALAZINE 20mg/ml inj. IV ONE (02:10)
[2021-09-07] MEDS ORDERED: proCHLORperazine 10 MG/2 ml inj IV ONE (02:10)
[2021-09-07 02:44] LABS: BASOPHILS % (AUTO) 0.8 % (0-1); EOSINOPHILS % (AUTO) 1.3 % (0-6); HEMATOCRIT 32.7 % (42.0-52.0); HEMOGLOBIN 10.9 g/dl (14.0-17.9); LYMPHOCYTES % (AUTO) 25.3 % (21-51); MEAN CORPUSCULAR HEMOGLOBIN 32.7 PG (27.0-31.0); MEAN CORPUSCULAR HGB CONC 33.2 g/dL (33.0-36.5); MEAN CORPUSCULAR VOLUME 98.4 FL (78-98); MEAN PLATELET VOLUME 7.9 FL (7.4-10.4); MONOCYTES # (AUTO) 0.4 X10'3 (0-0.9); MONOCYTES % (AUTO) 11.2 % (2-12); NEUTROPHILS # (AUTO) 2.4 X10'3 (1.8-7.7); NEUTROPHILS % (AUTO) 61.4 % (42-75); PLATELET COUNT 159 X10'3 (140-440); RED BLOOD COUNT 3.32 X10'6 (4.70-6.10); RED CELL DISTRIBUTION WIDTH 16.1 % (11.5-14.5); WHITE BLOOD COUNT 3.9 X10'3 (4.5-11.0)
[2021-09-07 02:50] LABS: ALANINE AMINOTRANSFERASE 7 U/L (12-78); ALBUMIN 3.1 G/DL (3.4-5.0); ALBUMIN/GLOBULIN RATIO 0.7 (1.1-1.5); ALKALINE PHOSPHATASE 50 IU/L (46-116); ANION GAP 7 (8-16); ASPARTATE AMINO TRANSFERASE 16 U/L (10-37); BILIRUBIN,TOTAL 0.4 MG/DL (0.1-1.0); BLOOD UREA NITROGEN 27 MG/DL (7-18); BUN/CREATININE RATIO 5.2 (5.4-32.0); CALCIUM 8.3 MG/DL (8.5-10.1); CHLORIDE 102 MMOL/L (99-107); GLUCOSE 134 MG/DL (70-104); POTASSIUM 3.7 MMOL/L (3.5-5.1); SODIUM 140 MMOL/L (135-145); TOTAL CARBON DIOXIDE 30.9 MMOL/L (24-32); TOTAL PROTEIN 7.7 G/DL (6.4-8.2); eGFR 14 ML/MIN
[2021-09-07] MEDS ORDERED: haloperidol lactate 5mg/ml inj IM ONE (03:00)
[2021-09-07] MEDS ORDERED: aspirin 325mg tablet PO ONE (03:00)
[2021-09-07 03:36] VITALS: BP_DIAS 137
[2021-09-07 03:38] VITALS: BP_SYST 239
--- NOTE | 2021-09-07 03:54 | NUR ---
Patient called this writer editor into the room stating "this IV in my neck feels uncomfortable." This writer editor and warehouse manager had attempted multiple times to start IV in the patient's arm, but patient had poor vasculature and nursing staff unable to start IV elsewhere. This writer editor reinforced need for IV access due to patient's health status. Patient stared this writer editor in the face and pulled out EJ. Provider notified.
== END 2021-09-07 04:27 | disposition home or self-care (01) ==
LOC: ER 01:06
DX: R51.9 Headache, unspecified (principal); I11.0 Hypertensive heart disease with heart failure; E11.9 Type 2 diabetes mellitus without complications; D64.9 Anemia, unspecified; W22.8XXA Striking against or struck by other objects, initial encounter; Y93.89 Activity, other specified; Y92.89 Other specified places as the place of occurrence of the external cause; Y99.8 Other external cause status
CPT/HCPCS: 36415; 70450; 71045; 80053; 83880; 84484; 85025; 93005; 96372; 96374; 96375; 99285; J0360; J0780; J1630

== ENCOUNTER 2023-03-07 00:57 | Inpatient (IN) | payer MEDICAID ==
[~2023-03-07] VITALS: Ht 188 cm; Wt 74.5 kg
[2023-03-07 01:40] LABS: BASOPHILS % (AUTO) 0.8 % (0-1); EOSINOPHILS # (AUTO) 0.2 X10'3 (0-0.9); HEMATOCRIT 30.5 % (42.0-52.0); HEMOGLOBIN 10.2 g/dl (14.0-17.9); LYMPHOCYTES % (AUTO) 23.1 % (21-51); MEAN CORPUSCULAR HEMOGLOBIN 31.8 PG (27.0-31.0); MEAN CORPUSCULAR HGB CONC 33.3 g/dL (33.0-36.5); MEAN CORPUSCULAR VOLUME 95.3 FL (78-98); MEAN PLATELET VOLUME 7.9 FL (7.4-10.4); MONOCYTES # (AUTO) 0.6 X10'3 (0-0.9); MONOCYTES % (AUTO) 14.5 % (2-12); NEUTROPHILS # (AUTO) 2.4 X10'3 (1.8-7.7); NEUTROPHILS % (AUTO) 57.6 % (42-75); PLATELET COUNT 130 X10'3 (140-440); RED CELL DISTRIBUTION WIDTH 17.6 % (11.5-14.5); WHITE BLOOD COUNT 4.1 X10'3 (4.5-11.0)
[2023-03-07 01:49] LABS: INR 1.2 INR; PROTHROMBIN TIME 13.2 SECONDS (9.0-12.0)
[2023-03-07 01:54] LABS: ALBUMIN 2.8 G/DL (3.4-5.0); ALBUMIN/GLOBULIN RATIO 0.6 (1.1-1.5); ALKALINE PHOSPHATASE 72 IU/L (46-116); ANION GAP 16 (8-16); ASPARTATE AMINO TRANSFERASE 17 U/L (10-37); BLOOD UREA NITROGEN 71 MG/DL (7-18); BUN/CREATININE RATIO 6.7 (10.0-20.0); CALCIUM 8.2 MG/DL (8.5-10.1); CHLORIDE 89 MMOL/L (99-107); CREATININE 10.67 MG/DL (0.60-1.10); GLUCOSE 109 MG/DL (70-104); POTASSIUM 4.4 MMOL/L (3.5-5.1); SODIUM 126 MMOL/L (135-145); TOTAL PROTEIN 7.5 G/DL (6.4-8.2); eGFR 6 ML/MIN
[2023-03-07 02:01] LABS: ALANINE AMINOTRANSFERASE < 6 U/L (12-78); MAGNESIUM 1.9 MG/DL (1.5-2.4); PRO BRAIN NATRIURETIC PEPTIDE 19393 PG/ML (0-125)
[2023-03-07] MEDS ORDERED: nitroGLYCERIN 0.4mg/hour patch TD ONE (02:45)
[2023-03-07] MEDS ORDERED: ondansetron/PF 4mg/2ml inj IV PRN (03:00)
[2023-03-07] MEDS ORDERED: acetaminophen 325mg tablet PO PRN (03:00)
[2023-03-07 03:15] LABS: PHOSPHORUS 8.8 MG/DL (2.3-4.5)
--- NOTE | 2023-03-07 03:30 | NUR ---
0310 PT BIB EMS FOR C/O RIGHT SIDED CHEST WALL PAIN WITH SOB, AND PRODUCTIVE COUGH SINCE YESTERDAY. PT DID NOT FEEL WELL AND DID NOT GO TO DIALYSIS TODAY. HE NOW C/O POSTERIOR HEAD PAIN. PLACED ON 3L NC, WHICH IS HIS HOME DOSE, BUT IS TELLING ME HE USES 4L. PUT HIM AT 3.5 0315 PT PAO2 AT 88%, INCREASED TO 4L WITH NO EFFECT, PLACED ON 5L BRINGING PAO2 91. 0330 PT IS NOW COMFORTABLE AND RESTING, PAO2 UP TO 98%, DECREASED O2 BACK TO HOME DOSE OF 4L, WILL CONTINUE TO MONITOR
[2023-03-07] MEDS: heparin, porcine 5000 units/ml vial SQ SCH ×2 (08:19→21:27)
[2023-03-07] MEDS: docusate sod 100mg capsule PO SCH ×2 (08:19→21:27)
[2023-03-07] MEDS ORDERED: heparin 1,000 units/ml 10ml inj IV ONE (10:05)
[2023-03-07] MEDS ORDERED: heparin 1,000unit/ml 10ml vial 10 ML IV ONE (10:05)
[2023-03-07] MEDS ORDERED: EPOETIN ALFA-EPBX 20,000 UNIT/ML 1 ML MDV IV ONE (10:05)
[2023-03-07] MEDS ORDERED: mannitol 12.5gm/50mL VIAL IV ONE (10:05)
--- NOTE | 2023-03-07 10:06 | NUR ---
PT SPO2 85% ON 4L NC. PT CHANGED TO SIMPLE MASK AT 5L. PT SPO2 92% AT THIS TIME.
[2023-03-07] MEDS ORDERED: heparin 1,000 units/ml 10ml inj HE ONE ×2 (10:10→11:30)
--- NOTE | 2023-03-07 11:10 | NUR ---
PRIMARY RN PLACED STERILE DRESSING ON TUNNEL CATHETER.
[2023-03-07] MEDS ORDERED: LABE200T8 PO (12:48)
[2023-03-07] MEDS ORDERED: FOLI1TAB27 PO (12:48)
[2023-03-07] MEDS ORDERED: AMLO10TA13 PO (12:48)
[2023-03-07] MEDS ORDERED: CLON1PAT16 TOP (12:48)
[2023-03-07] MEDS ORDERED: DILT-36 PO (12:48)
[2023-03-07] MEDS ORDERED: CYAN-104 PO (12:48)
--- NOTE | 2023-03-07 13:50 | NUR ---
RECEIVED REPORT FROM ED RN, AND ASSUMED CARE OF PATIENT. VALERIE FROM DIALYSIS HERE TO BEGIN HD. VSS A/OX3
[2023-03-07 14:26] LABS: HEMOGLOBIN A1C 5.3 % (4.5-6.2)
[2023-03-07 18:00] VITALS: BP 150/67; PULSE 84; RESP 22; TEMP 97; O2SAT 92
[2023-03-07 22:00] VITALS: BP 107/68; RESP 24; TEMP 98.9; O2SAT 91
[2023-03-08 02:00] VITALS: BP 131/66; RESP 22; TEMP 98.9; O2SAT 93
--- NOTE | 2023-03-08 04:00 | NUR ---
I AGREE WITH PAINT PROCESS ENGINEER'S ASSESSMENT.
[2023-03-08 06:00] VITALS: BP 133/62; PULSE 79; RESP 20; TEMP 98.4; O2SAT 95
[2023-03-08] MEDS: docusate sod 100mg capsule PO SCH ×2 (08:12→20:57)
[2023-03-08] MEDS: heparin, porcine 5000 units/ml vial SQ SCH ×2 (08:13→20:58)
[2023-03-08] MEDS ORDERED: heparin 1,000unit/ml 10ml vial 10 ML IV ONE (09:20)
[2023-03-08] MEDS ORDERED: heparin 1,000 units/ml 10ml inj IV ONE (09:20)
[2023-03-08] MEDS ORDERED: heparin 1,000 units/ml 10ml inj HE ONE ×2 (09:25→10:15)
[2023-03-08 09:33] LABS: BASOPHILS % (AUTO) 0.6 % (0-1); EOSINOPHILS # (AUTO) 0.1 X10'3 (0-0.9); EOSINOPHILS % (AUTO) 2.6 % (0-6); HEMATOCRIT 32.9 % (42.0-52.0); HEMOGLOBIN 10.9 g/dl (14.0-17.9); LYMPHOCYTES # (AUTO) 0.8 X10'3 (1.1-4.8); LYMPHOCYTES % (AUTO) 17.8 % (21-51); MEAN CORPUSCULAR HEMOGLOBIN 32.1 PG (27.0-31.0); MEAN CORPUSCULAR HGB CONC 33.1 g/dL (33.0-36.5); MEAN PLATELET VOLUME 8.1 FL (7.4-10.4); MONOCYTES # (AUTO) 0.8 X10'3 (0-0.9); MONOCYTES % (AUTO) 17.6 % (2-12); NEUTROPHILS # (AUTO) 2.7 X10'3 (1.8-7.7); NEUTROPHILS % (AUTO) 61.4 % (42-75); PLATELET COUNT 134 X10'3 (140-440); WHITE BLOOD COUNT 4.4 X10'3 (4.5-11.0)
[2023-03-08 10:13] LABS: ALBUMIN 2.9 G/DL (3.4-5.0); ALBUMIN/GLOBULIN RATIO 0.6 (1.1-1.5); ALKALINE PHOSPHATASE 79 IU/L (46-116); ANION GAP 13 (8-16); ASPARTATE AMINO TRANSFERASE 25 U/L (10-37); BILIRUBIN,TOTAL 1.2 MG/DL (0.1-1.0); BLOOD UREA NITROGEN 47 MG/DL (7-18); BUN/CREATININE RATIO 5.7 (10.0-20.0); CALCIUM 8.7 MG/DL (8.5-10.1); CHLORIDE 93 MMOL/L (99-107); CREATININE 8.25 MG/DL (0.60-1.10); GLUCOSE 98 MG/DL (70-104); POTASSIUM 3.8 MMOL/L (3.5-5.1); SODIUM 129 MMOL/L (135-145); TOTAL CARBON DIOXIDE 22.9 MMOL/L (24-32); TOTAL PROTEIN 7.6 G/DL (6.4-8.2); eCRCL 10 ML/MIN; eGFR 8 ML/MIN
[2023-03-08 10:15] LABS: ALANINE AMINOTRANSFERASE < 6 U/L (12-78)
[2023-03-08 10:30] VITALS: BP 151/69; PULSE 80; RESP 18; TEMP 97.8; O2SAT 93
[2023-03-08 10:33] LABS: ANISOCYTOSIS 1+; PLATELET ESTIMATE DECREASED; TOTAL CELLS COUNTED 100
--- NOTE | 2023-03-08 12:30 | NUR ---
Malnutrition consult: Pt reports 2-13 lb wt loss with decreased appetite/PO intake per malnutrition risk screen with RN. Current scaled weight is appropriate and stable with wt hx in EMR however wt likely to fluctuate d/t changes in fluid status with ESRD on HD. Pt currently on a renal diet, documented to have refused first meal and food held today d/t pt receiving dialysis. Pt with no documented decrease in muscle strength or significant edema. Pt currently lacks a minimum of two criteria for malnutrition though will continue to monitor s/s of malnutrition and need for nutrition intervention. Addendum: 03/08/23 at [address] Amended: Links added.
--- NOTE | 2023-03-08 13:28 | NUR ---
O2 Sat at rest on room air:__84_% If below 89%: Recovery O2 Sat at rest on _3__LPM:_@_93_% via____NC (mask/nasal cannula, etc..) No further documentation is necessary. If O2 Sat did not drop below 89% on room air,ambulate patient on room air. O2 Sat while ambulating on room air:___% Recovery O2 Sat while ambulating on ___LPM:___% No further documentation is necessary. If patient does not drop below 89% while ambulating, he/she does not qualify for home O2.
--- NOTE | 2023-03-08 15:55 | NUR ---
PATIENT HAD HD TODAY WITH 4L OFF. TOLERATED WELL. PT IS TO DISCHARGE TODAY. HE WILL DC TO THE [facility] WITH OXYGEN ORDERED AT 3L VIA NC. OXYGEN TO BE DELIVERED TO HOSPITAL BEFORE DISCHARGE AND WE WILL SET UP MEDICAL TRANSPORTATION FOR HIM. HE WILL GO TO THE [facility] PATIENT VERBALIZES UNDERSTANDING REGARDING PLAN OF CARE
[2023-03-08 18:00] VITALS: BP 141/64; PULSE 89; RESP 17; TEMP 98.7; O2SAT 94
[2023-03-08 22:00] VITALS: BP 143/73; PULSE 86; RESP 16; TEMP 97.9; O2SAT 93
[2023-03-09 02:00] VITALS: BP 134/84; PULSE 80; RESP 16; TEMP 97.6; O2SAT 97
--- NOTE | 2023-03-09 04:15 | NUR ---
I AGREE WITH PROFESSIONAL MODEL'S ASSESSMENT
[2023-03-09 06:00] VITALS: BP 155/78; PULSE 84; RESP 17; TEMP 98.2; O2SAT 98
--- NOTE | 2023-03-09 06:16 | NUR ---
Patient report given to Vivi GOMEZ questions answered & plan of care reviewed with .
--- NOTE | 2023-03-09 06:30 | NUR ---
Patient in room PCU 3022. I have received report from Erick KNOX and had the opportunity to ask questions and assume patient care.
[2023-03-09 06:53] LABS: BASOPHILS % (AUTO) 0.7 % (0-1); EOSINOPHILS # (AUTO) 0.1 X10'3 (0-0.9); EOSINOPHILS % (AUTO) 2.4 % (0-6); HEMATOCRIT 32.2 % (42.0-52.0); HEMOGLOBIN 10.6 g/dl (14.0-17.9); LYMPHOCYTES # (AUTO) 0.9 X10'3 (1.1-4.8); LYMPHOCYTES % (AUTO) 20.8 % (21-51); MEAN CORPUSCULAR HEMOGLOBIN 31.5 PG (27.0-31.0); MEAN CORPUSCULAR HGB CONC 32.9 g/dL (33.0-36.5); MEAN CORPUSCULAR VOLUME 95.8 FL (78-98); MEAN PLATELET VOLUME 7.6 FL (7.4-10.4); MONOCYTES # (AUTO) 0.9 X10'3 (0-0.9); MONOCYTES % (AUTO) 20.1 % (2-12); NEUTROPHILS # (AUTO) 2.4 X10'3 (1.8-7.7); PLATELET COUNT 137 X10'3 (140-440); RED BLOOD COUNT 3.36 X10'6 (4.70-6.10); RED CELL DISTRIBUTION WIDTH 17.9 % (11.5-14.5); WHITE BLOOD COUNT 4.4 X10'3 (4.5-11.0)
[2023-03-09 07:08] LABS: ALBUMIN 2.7 G/DL (3.4-5.0); ALBUMIN/GLOBULIN RATIO 0.6 (1.1-1.5); ALKALINE PHOSPHATASE 79 IU/L (46-116); ANION GAP 10 (8-16); ASPARTATE AMINO TRANSFERASE 18 U/L (10-37); BILIRUBIN,TOTAL 1.2 MG/DL (0.1-1.0); BLOOD UREA NITROGEN 26 MG/DL (7-18); CALCIUM 8.6 MG/DL (8.5-10.1); CHLORIDE 98 MMOL/L (99-107); CREATININE 6.58 MG/DL (0.60-1.10); GLUCOSE 83 MG/DL (70-104); POTASSIUM 3.4 MMOL/L (3.5-5.1); SODIUM 135 MMOL/L (135-145); TOTAL CARBON DIOXIDE 26.7 MMOL/L (24-32); TOTAL PROTEIN 7.6 G/DL (6.4-8.2); eCRCL 12 ML/MIN; eGFR 10 ML/MIN
[2023-03-09 07:20] LABS: ALANINE AMINOTRANSFERASE 8 U/L (12-78)
[2023-03-09] MEDS: docusate sod 100mg capsule PO SCH (08:00)
[2023-03-09 08:35] LABS: HBSAG SCREEN Negative (Negative)
[2023-03-09] MEDS: heparin, porcine 5000 units/ml vial SQ SCH (09:53)
[2023-03-09 11:00] VITALS: BP 151/70; PULSE 89; RESP 16; TEMP 98.3; O2SAT 89
--- NOTE | 2023-03-09 13:02 | NUR ---
Pt frequently removes O2 face mask. Currently on 2L. Educated patient on the importance of keeping oxygen on as patient desaturates to 83-84% without oxygen on. Increased O2 to 3L. Pt reports chronic SOB. Currently on at home oxygen.
--- NOTE | 2023-03-09 14:40 | NUR ---
Pt D/C per hospitalist. PIV removed, cannula intact. Tele discontinued. Reviewed discharge instructions with patient, all questions and concerns addressed. All belongings taken home by patient. Pt was wheeled down to lobby by staff design engineer and taken to [facility] (his place of residence) by taxi cab. Pt stable and appropriate for discharge.
== END 2023-03-09 14:40 | disposition home or self-care (01) | DRG 469 ==
LOC: ER 00:57 → ED HOLD 03:02 → PCU 3S 13:51
PROVIDERS: ADMIT Internal Medicine; ATTEND Family Medicine
PROC: 5A1D70Z Performance of Urinary Filtration, Intermittent, Less than 6 Hours Per Day (ICD-10-PCS; principal; 2023-03-07)
PROC: 5A1D70Z Performance of Urinary Filtration, Intermittent, Less than 6 Hours Per Day (ICD-10-PCS; 2023-03-08)
DX: N17.9 Acute kidney failure, unspecified (principal); J96.00 Acute respiratory failure, unspecified whether with hypoxia or hypercapnia; E87.20 Acidosis, unspecified; I13.2 Hypertensive heart and chronic kidney disease with heart failure and with stage 5 chronic kidney disease, or end stage renal disease; E87.1 Hypo-osmolality and hyponatremia; E11.22 Type 2 diabetes mellitus with diabetic chronic kidney disease; I95.9 Hypotension, unspecified; D64.9 Anemia, unspecified; I50.9 Heart failure, unspecified; E11.42 Type 2 diabetes mellitus with diabetic polyneuropathy; N18.6 End stage renal disease; Z99.2 Dependence on renal dialysis; Z89.511 Acquired absence of right leg below knee; Z89.512 Acquired absence of left leg below knee; Z79.899 Other long term (current) drug therapy
CPT/HCPCS: 36415; 71045; 80053; 82948; 83036; 83735; 83880; 84100; 84145; 84484; 85007; 85025; 85610; 87081; 87340; 93005; 99285; A4620; A6258; A6449; G0378; J1644; J2150; J7030; Q4081